=== PATIENT | female | born 1935 | race Caucasian/White ===

== ENCOUNTER 2018-11-19 08:00 | Inpatient (IN) ==
--- NOTE | 2018-11-11 13:41 | PAT Medication Instructions ---
Medication Instructions Date of Service November 11, 2018 Home Medications atorvastatin 20 mg PO QAM gabapentin 100 mg PO HS loratadine [Claritin] 10 mg PO DAILY multivitamin with minerals [Hair,Skin and Nails] 2 tab PO QAM triamterene-hydrochlorothiazid 1 tab PO QAM venlafaxine 300 mg PO QAM DO NOT take the morning of surgery loratadine [Claritin] 10 mg PO DAILY multivitamin with minerals [Hair,Skin and Nails] 2 tab PO QAM triamterene-hydrochlorothiazid 1 tab PO QAM Take morning of surgery With a small sip of water, OTHERWISE NOTHING TO EAT OR DRINK AFTER MIDNIGHT: atorvastatin 20 mg PO QAM venlafaxine 300 mg PO QAM Take evening before surgery gabapentin 100 mg PO HS Other Notes If you have any questions please call us at [phone] or [phone] or [phone] or [phone]
--- NOTE | 2018-11-11 14:18 | Anesthesiology Consultation ---
Date of Service November 11, 2018 Assessment & Plan Chart Review Chart Review: Acceptable Risk for Surgery, Pending: Refer to Additional Notes / Consult section (pending PAT testing results) and Patient seen in Pre Admission Testing Consults Requested none History Surgery Operation Date: 11/19/18 10:25 Proposed Procedures p L4-L5 Decompression and Fusion, Spinal Cord Monitoring - Cale Cassidy DO Height/Weight Height: 5 ft 8 in Weight: 82.3 kg Allergies Allergy/AdvReac Type Severity Reaction Status Date / Time ceftriaxone Allergy Intermediate hives Verified 11/11/18 13:28 Iodinated Contrast Media Allergy Intermediate pruritus Verified 11/11/18 13:28 (feet) Penicillins Allergy Intermediate hives Verified 11/11/18 13:28 cisapride AdvReac Intermediate GI symptoms Verified 11/11/18 13:28 solifenacin AdvReac Intermediate blurred Verified 11/11/18 13:28 vision Medications Home Medications Medication Instructions Recorded Confirmed Last Taken atorvastatin 20 mg PO QAM 11/10/18 11/10/18 Unknown gabapentin 100 mg PO HS 11/10/18 11/10/18 Unknown loratadine [Claritin] 10 mg PO DAILY 11/10/18 11/10/18 Unknown multivitamin with minerals 2 tab PO QAM 11/10/18 11/10/18 Unknown [Hair,Skin and Nails] triamterene-hydrochlorothiazid 1 tab PO QAM 11/10/18 11/10/18 Unknown venlafaxine 300 mg PO QAM 11/10/18 11/10/18 Unknown Past Medical History Medical History Hypertension Hyperlipidemia CKD (chronic kidney disease) stage 3, GFR 30-59 ml/min GERD (gastroesophageal reflux disease) Depression Chronic back pain Degenerative disc disease Osteoarthritis Exercise / Class Metabolic Activity III < 4 Walking/Shop/Light housework Past Family History Family History Father Family hx of colon cancer Brother Family history of diabetes mellitus Sister Family history of diabetes mellitus Past Surgical History Surgical History History of tonsillectomy and adenoidectomy History of appendectomy History of carpal tunnel surgery "Right" H/O bladder repair surgery "vaginal sling procedure for stress incontinence 11/2006 " History of arthroplasty of right knee H/O vaginal hysterectomy History of arthroplasty of left knee Past Anesthesia History No Hx of Anesthesia Complications and No Family Hx of Anesthesia Complications History of PONV No Hx of PONV and No Hx of Motion Sickness Social History Smoking Status: Current every day smoker tobacco type: cigarettes Smoking cigarettes per day: 11 Do You Dip or Chew Tobacco: No Hx Alcohol Use: No Hx Substance Use: No substance use type: does not use Review of Systems Constitutional: no fever Respiratory: no cough and no dyspnea Cardiovascular: no chest pain and no dyspnea on exertion Musculoskeletal: + back pain Physical Exam Vital Signs Last Vital Signs Temp 36.5 C 11/11/18 13:56 Pulse 80 11/11/18 13:56 Resp 18 11/11/18 13:56 BP 111/66 11/11/18 13:56 Pulse Ox 98 11/11/18 13:56 ENMT Mouth: + edentulous Thyromental Distance: > or= 3.5 Finger Breadths Mallampati Class: II Neck normal visual inspection and trachea midline; neck extension not limited Respiratory normal respiratory effort Auscultation: lungs clear to auscultation bilaterally Cardiovascular Rate/Rhythm: regular rate and regular rhythm Neurologic moves all extremities Psychiatric Orientation: alert and oriented x 3
[2018-11-11 15:28] LABS: Basophils # (auto) 0.02 K/uL (0-0.2); Basophils % (auto) 0.3 %; Eosinophils # (auto) 0.17 K/uL (0-0.5); Eosinophils % (auto) 2.9 %; Hematocrit (blood only) 40.1 % (37-47); Hemoglobin 13.2 g/dL (12.0-16.0); Immature Granulocytes # (auto) 0.01 K/uL (0.00-0.02); Immature Granulocytes % (auto) 0.2 %; Lymphocytes # (auto) 1.35 K/uL (1.2-3.4); Lymphocytes % (auto) 23.1 %; Mean Corpuscular Hemoglobin 33.8 pg (25-34); Mean Corpuscular Hgb Conc 32.9 g/dL (32-36); Mean Corpuscular Volume 102.6 fL (80-100); Mean Platelet Volume 10.8 fL (7.4-10.4); Monocytes # (auto) 0.59 K/uL (0.11-0.59); Monocytes % (auto) 10.1 %; Neutrophils % (auto) 63.4 %; Platelet Count 194 K/uL (130-400); RDW Coefficient of Variation 15.2 % (11.5-14.5); RDW Standard Deviation 56.3 fL (36.4-46.3); Red Blood Count 3.91 M/uL (4.2-5.4); White Blood Count 5.84 K/uL (4.8-10.8)
--- NOTE | 2018-11-11 15:29 | XRay Report ---
XR chest Pre-admission PA/Lat HISTORY: Preop. COMPARISON: Chest 04/29/2018. FINDINGS: S-shaped scoliosis of the thoracolumbar spine. Mild diffuse interstitial thickening, unchan ged. This is likely chronic. No new focal lung consolidations to suggest pneumonia. No evidence for p ulmonary edema. The heart is normal in size. IMPRESSION: No significant change compared to the prior study. No acute process. Stable mild chronic interstitial thickening. Electronically signed by: Dao Santos M.D. 11/11/2018 3:28 PM
[2018-11-11 15:36] LABS: Appearance Urine Clear (Clear); Bacteria Urine Automated Negative (Negative); Bilirubin Urine Negative (Negative); Blood Urine Negative (Negative); Color Urine Yellow; Epithelial Cell Urine Auto >30 /lpf (0-5); Glucose Urine UA Negative (Negative); Ketones Urine Negative (Negative); Leukocyte Esterase Urine 3+ (Negative); Nitrite Urine Negative (Negative); Protein Urine Negative (Negative); RBC Urine Automated 0-4 /hpf (0-4); Specific Gravity Urine 1.016 (1.000-1.030); Urobilinogen Urine Negative (Negative); pH Urine 6.5 (4.5-7.5)
[2018-11-11 15:40] LABS: Partial Thromboplastin Time 26.4 Seconds (21.0-31.0)
[~2018-11-19 08:00] MED LIST: ACETAMINOPHEN 500 MG TAB PO SCH; CLINDAMYCIN 600 MG/54 ML BAG IV SCH; CeleBREX 200 MG CAP PO SCH; GABAPENTIN 300 MG CAP PO SCH; LR 15ML/HR IV SCH
[2018-11-19] MEDS ORDERED: HYDROmorphone INJ 2 MG/ML SYR/VIAL ONE ×2 (08:21→11:35)
[2018-11-19] MEDS ORDERED: fentaNYL citrate 100 MCG/2 ML VIAL ONE ×3 (08:21→11:06)
[2018-11-19] MEDS ORDERED: DEXAMETHASONE SOD INJ 4 MG/ML VIAL ONE (08:27)
[2018-11-19] MEDS ORDERED: ROCURONIUM BROMIDE 10 MG/ML 5 ML VIAL ONE (08:27)
[2018-11-19] MEDS ORDERED: LIDOCAINE HCL 2% 2 ML VIAL/AMP(20MG/ML) INFIL ONE (08:27)
[2018-11-19] MEDS ORDERED: ONDANSETRON INJ 2 MG/ML 2 ML VIAL ONE (08:27)
[2018-11-19] MEDS ORDERED: NEOSTIGMINE METHYLSULFATE 1 MG/ML 10ML VIAL ONE (08:27)
[2018-11-19] MEDS ORDERED: GLYCOPYRROLATE 0.2 MG/ML VIAL ONE (08:27)
[2018-11-19] MEDS ORDERED: PROPOFOL IV EMULSION 10 MG/ML 20 ML VIAL IV ONE (08:27)
[2018-11-19] MEDS ORDERED: fentaNYL citrate 100 MCG/2 ML VIAL IV PRN (08:33)
[2018-11-19] MEDS ORDERED: ePHEDrine sulfate 50 MG/ML AMP IV PRN (08:33)
[2018-11-19] MEDS ORDERED: PHENYLEPHRINE 100MCG/ML 5ML SYR IV PRN (08:33)
[2018-11-19] MEDS ORDERED: ONDANSETRON INJ 2 MG/ML 2 ML VIAL IV PRN ×2 (08:33→12:51)
[2018-11-19] MEDS ORDERED: HYDROmorphone INJ 1 MG/ML SYRINGE IV PRN (08:33)
[2018-11-19] MEDS ORDERED: LABETALOL HCL IV 5 MG/ML 20ML IV PRN (08:33)
[2018-11-19] MEDS ORDERED: ATROPINE SULFATE 0.1 MG/ML 10ML SYR IV PRN (08:33)
--- NOTE | 2018-11-19 09:15 | History & Physical Bridge Note ---
Date of Service November 19, 2018 History & Physical Bridge Note I have examined the patient, reviewed the History & Physical and in the interval since the performance of the History & Physical I have noted the following changes of clinical significance: no changes noted
--- NOTE | 2018-11-19 09:18 | History & Physical Report ---
Date of Service November 19, 2018 Assessment & Plan (1) Neurogenic claudication due to lumbar spinal stenosis: Decompression and fusion L4-5 Present on Admission?: Yes History of Present Illness Chief Complaint: Back and leg pain Primary Care Provider: Devi Luna DO This is an 83-year-old female who presents with chronic persistent back and leg pain. After failing extensive course of nonoperative care is here for surgical intervention. Allergies Allergy/AdvReac Type Severity Reaction Status Date / Time ceftriaxone Allergy Intermediate hives Verified 11/19/18 08:31 Iodinated Contrast Media Allergy Intermediate pruritus Verified 11/19/18 08:31 (feet) Penicillins Allergy Intermediate hives Verified 11/19/18 08:31 cisapride AdvReac Intermediate GI symptoms Verified 11/19/18 08:31 solifenacin AdvReac Intermediate blurred Verified 11/19/18 08:31 vision Home Medications Home Medications Medication Instructions Recorded Confirmed Type atorvastatin 20 mg PO QAM 11/10/18 11/19/18 History gabapentin 100 mg PO HS 11/10/18 11/19/18 History loratadine [Claritin] 10 mg PO DAILY 11/10/18 11/19/18 History multivitamin with minerals 2 tab PO QAM 11/10/18 11/19/18 History [Hair,Skin and Nails] triamterene-hydrochlorothiazid 1 tab PO QAM 11/10/18 11/19/18 History venlafaxine 300 mg PO QAM 11/10/18 11/19/18 History Past Med/Surg History Medical History Hypertension Hyperlipidemia CKD (chronic kidney disease) stage 3, GFR 30-59 ml/min GERD (gastroesophageal reflux disease) Depression Chronic back pain Degenerative disc disease Osteoarthritis Surgical History History of tonsillectomy and adenoidectomy History of appendectomy History of carpal tunnel surgery "Right" H/O bladder repair surgery "vaginal sling procedure for stress incontinence 11/2006 " History of arthroplasty of right knee H/O vaginal hysterectomy History of arthroplasty of left knee Family History Father Family hx of colon cancer Brother Family history of diabetes mellitus Sister Family history of diabetes mellitus Social History Preferred Language: [place] Islander Communication Ability: Effective Networking Administrator Required: No Beliefs That Will Affect Care: None Current Living Situation: Spouse Other Information That Helps Us Care for You: No Feels Safe at Home: Yes Safety Concerns: Feels Safe At This Time Smoking Status: Current every day smoker Tobacco Type: cigarettes ; Cigarettes Per Day: 11 ; Do You Dip or Chew Tobacco: No ; Second Hand Exposure: No ; Tobacco Cessation Education Requested by Patient: No Hx Alcohol Use: No Hx Substance Use: No Physical Exam Physical Exam: Patient is alert and oriented neurologically intact. Results & Data Vital Signs (Past 12 Hours) Vital Signs Temp Pulse Resp BP Pulse Ox 11/19/18 08:28 36.3 C L 78 20 157/87 H 96
[2018-11-19] MEDS ORDERED: BACITRACIN INJ 50,000 UNIT VIAL ONE (09:35)
[2018-11-19] MEDS ORDERED: BUPIVACAINE/EPINEPHRINE 0.5% MPF 1:200,000 30 ML VIAL ONE (09:35)
[2018-11-19] MEDS ORDERED: FLOSEAL HEMOSTATIC MATRIX 10ML TOP ONE (10:09)
--- NOTE | 2018-11-19 11:22 | Operative Report ---
Post Operative Report Pre & Post Diagnosis Operation Date: 11/19/18 10:05 Pre-Op Diagnosis: L4-L5 LUMBAR SPINAL STENOSIS WITH NEUROGENIC CLAUDICATION Post-Op Diagnosis: L4-L5 LUMBAR SPINAL STENOSIS WITH NEUROGENIC CLAUDICATION Procedure Operation Date: 11/19/18 10:05 Actual Procedures #1 lumbar decompression with bilateral medial facetectomies and foraminotomies L3-4 L4-5. #2 posterior spinal fusion L4-5 per #3 placement posterior instrumentation L4-5 per #4 interbody fusion L4-5. #5 placement of peek cage 9 x 22 mm at L4-5 per #6 placement of local autograft in the posterior lateral gutters. #7 placement infuse collagen sponge combined master graft in the posterior lateral gutters and ostial amp in the interbody space. Surgeon Cale Cassidy DO Market Development Trainer Margie King Estimated Blood Loss 175 Findings Consistent with Post-Op Diagnosis Specimens None Indications This is a 83-year-old female who presents with above-mentioned diagnosis after failing extensive course of nonoperative care she like to undergo the above- mentioned procedure. Description of Procedure Patient was met with identified and informed consent obtained. Patient was then taken to the operative suite underwent intubation placed in the prone position the Sly table on top of the Foreign frame. All bony prominences well-padded eyes inspected to ensure no external pressure placed upon the peer at this point the lumbar spine was prepped and draped in normal sterile fashion. Sharp dissection with the assistance of Bovie cautery was performed down to and exposing the lamina transverse processes of L4-L5 bilaterally. From a caudal to cephalad fashion complete laminectomy of L4 partial laminectomy L3 was performed including bilateral medial facetectomies and foraminotomies addressing severe stenosis. Pedicle screws were then placed in L4 and L5 bilaterally with the assistance of fluoroscopy the purposes ketan placed. By way of a transforaminal approach on the right complete discectomy was performed endplates curetted to subcortical being bone and a 9 x 22 mm peek cage filled with ostium bone graft tapped in position. The rods were then locked into final position bilaterally. The transverse processes of L4 and L5 bur to subcortical bleeding bone. Infuse collagen sponge master graft and local autograft placed in the posterior lateral gutters. 15 round SARIAH drain inserted. The incision was then closed with 1 Vicryl in the fascia 2-0 Vicryl subcutaneously and 4-0 Monocryl for final skin closure. Steri-Strip sterile dressings placed. Patient will continue to PACU stable condition. Please note Margie King present at the entire procedure involved the patient positioning complex portions of the surgery and final skin closure. Lastly spinal cord monitoring was utilized throughout the procedure no changes noted. I attest to the content of the Intraoperative Record and any orders documented therein. Any exceptions are noted below.
--- NOTE | 2018-11-19 11:31 | Fluoroscopy Report ---
INTRAOPERATIVE RADIOGRAPHS CLINICAL HISTORY: L4-L5 spinal fusion. Fluoroscopy time: 18 seconds. FINDINGS: 2 spot fluoroscopic views of the lumbar spine are presented. There has been discectomy at L 4-L5 with laminectomy and posterior fusion at this level. Interpedicular screws are in place. The ort hopedic hardware appears intact. IMPRESSION: Intraoperative images from L4-L5 spinal fusion as above. Electronically signed by: Gentry Young M.D. 11/19/2018 11:29 AM
[2018-11-19] MEDS ORDERED: LARYING-O-JET KIT (LTA) ONE (11:37)
--- NOTE | 2018-11-19 12:28 | Anesthesiology Progress Note ---
Date of Service November 19, 2018 Anesthesia Post Procedure Vital Signs Vital Signs: Temp Pulse Pulse Resp BP Pulse Ox 11/19/18 12:20 88 20 136/64 96 11/19/18 12:10 86 14 139/66 97 11/19/18 12:00 36.6 C 87 16 139/67 98 11/19/18 11:50 84 20 146/68 H 99 11/19/18 11:40 84 18 147/69 H 100 11/19/18 11:32 36.4 C L 86 14 147/65 H 97 11/19/18 08:28 36.3 C L 78 20 157/87 H 96 Pain Intensity Back: Pain Intensity: 3 Transfer of Care Handoff Completed per policy Notes Mental Status: alert / awake / arousable Patient Amnestic to Procedure: Yes Nausea / Vomiting: adequately controlled Pain: adequately controlled Airway Patency, RR, SpO2: stable & adequate BP & HR: stable & adequate Hydration State: stable & adequate Anesthetic Complications: no major complications apparent and Pt Satisfied with anesthetic care
[2018-11-19] MEDS ORDERED: DO NOT ADMINISTER PNEUMOCOCCAL VACCINE PRN (12:51)
[2018-11-19] MEDS ORDERED: METOCLOPRAMIDE HCL INJ 5 MG/ML 2 ML VIAL IV PRN (12:51)
[2018-11-19] MEDS ORDERED: FAMOTIDINE 20 MG TAB PO PRN (12:51)
[2018-11-19] MEDS ORDERED: MAGNESIUM HYDROXIDE SUSP 30 ML UDC PO PRN (12:51)
[2018-11-19] MEDS ORDERED: LORazepam 0.5 MG TAB PO PRN (12:51)
[2018-11-19] MEDS ORDERED: NALOXONE HCL 0.4 MG/1 ML VIAL/CARP IV PRN (12:51)
[2018-11-19] MEDS ORDERED: ALUMINUM/MAGNESIUM SUSP 30 ML UDC PO PRN (12:51)
[2018-11-19] MEDS ORDERED: ACETAMINOPHEN 500 MG TAB PO PRN (12:51)
[2018-11-19] MEDS ORDERED: LORazepam 0.5 MG/1 ML VIAL IV PRN (12:51)
[2018-11-19] MEDS ORDERED: PROMETHAZINE HCL 12.5 MG in SODIUM CHLORIDE 0.9% 50 ML IV PRN (12:51)
[2018-11-19] MEDS ORDERED: ACETAMINOPHEN 1,000 MG/100 ML VIAL IV PRN (12:51)
[2018-11-19] MEDS ORDERED: ONDANSETRON 4 MG TAB PO PRN (12:51)
[2018-11-19] MEDS ORDERED: SOD PHOSPHATE/SOD BIPHOSPHATE ENEMA 132 ML BTL PR PRN (12:51)
[2018-11-19] MEDS ORDERED: DO NOT ADMINISTER FLU VACCINE PRN (12:51)
[2018-11-19] MEDS ORDERED: bisacodyL 10 MG SUPP PR PRN (12:51)
[2018-11-19] MEDS: LACTATED RINGER'S 1,000 ML IV SCH ×2 (14:12→14:55)
--- NOTE | 2018-11-19 14:53 | Hospitalist Consultation ---
Date of Consultation November 19, 2018 Assessment & Plan (1) Hx of lumbosacral spine surgery: This is an 83yo F with a PMH of HTN, CKD III, HLD, mood disorder and PVD who is POD #0 s/p decompression with bilateral medial facetectomies and foraminotomies L3-4 L4-[address] Cassidy. -POD #0 s/p decompression with bilateral medial facetectomies and foraminotomies L3-4 L4-[address] Cassidy -Pt is doing well post-operatively -Per ortho for pain control, wound care, anticoagulation and activities -Monitor H&H (pre-op hgb 13.2 on 11/11/18. EBL: 175 ml, SARIAH output 70ml) -Continue incentive spirometry, PT/OT when appropriate (2) Hypertension: Normotensive -Continue triamterene-hctz tomorrow (3) Hyperlipidemia: Continue atorvastatin (4) CKD (chronic kidney disease) stage 3, GFR 30-59 ml/min: Baseline Cr ~ 1.1, GFR mid-40s -Monitor during daily BMP (5) Depression: Continue venlafaxine (6) PVD (peripheral vascular disease): Continue statin. Aspirin intolerant -Advised smoking cessation (7) Tobacco use disorder: 45 pack years, currently smoking almost 1 ppd -Offered nicotine patch, not interested at this time (8) Urge incontinence of urine: H/o sacral nerve neurostimulator placement in 2013, vaginal sling procedure for incontinence in 2006 (9) Slow transit constipation: Recommend aggressive bowel regimen while receiving narcotics PCP: Cheryl Dispo: Per primary service Patient seen in collaboration with Dr. Dickey. Please see addendum. Supervising Physician Co-Signing Physician Notes I, Dr. Navin Dickey, have seen and examined the patient with physician drafter assistant and agree with the assessment and plan as above and would like to comment that This is a patient being seen as hospitalist medicine consult and is under the general service Dr. Cassidy With L4-L5 LUMBAR SPINAL STENOSIS WITH NEUROGENIC CLAUDICATION and s/p lumbar spine decompression and fusion on 11/19/18 (s/p #1 lumbar decompression with bilateral medial facetectomies and foraminotomies L3-4 L4-5. #2 posterior spinal fusion L4-5 per #3 placement posterior instrumentation L4-5 per #4 interbody fusion L4-5. #5 placement of peek cage 9 x 22 mm at L4-5 per #6 placement of local autograft in the posterior lateral gutters. #7 placement infuse collagen sponge combined master graft in the posterior lateral gutters and ostial amp in the interbody space.) On exam patient: General: laying in bed on nasal cannula, she is sleeping and easily awaken. Denies acute pain Neck/ENT: visual inspection normal besides nasal cannula Heart: regular rate Lungs: clear to auscultation bilaterally Abdomen: soft, nontender, positive bowel sounds Back: SARIAH drain Extremities: able to wiggle the toes of bilateral lower extremities Postop care for s/p lumbar spine decompression and fusion due With L4-L5 LUMBAR SPINAL STENOSIS WITH NEUROGENIC CLAUDICATION -agree with current pain control, bowel regimen, orders for wound care, expect PT/OT tomorrow to evaluate Hypertension: -Continue triamterene-hctz tomorrow Hyperlipidemia: -on atorvastatin CKD (chronic kidney disease) stage 3, GFR 30-59 ml/min: -monitor renal function Depression -on venlafaxine urge incontinence of urine: - history of sacral nerve neurostimulator placement in 2013, vaginal sling procedure for incontinence in 2006 -monitor urine output SCDs as DVT prevention device My colleague Dr. Davison will be following the patient starting on 11/20/18 History of Present Illness Reason for Consultation: post op medical mgmt Attending Physician: Cale Cassidy, DO History of Present Illness This is an 83yo F with a PMH of HTN, CKD III, HLD, mood disorder and PVD who is POD #0 s/p decompression with bilateral medial facetectomies and foraminotomies L3-4 L4-[address] Cassidy. Patient is feeling well post-operatively with mild surgical site pain. Has been lethargic since returning to the floor and was falling asleep intermittently during interview. Denies any confusion, lightheadedness or visual changes. No chest pain, palpitations or SOB. Tolerated clear liquids for lunch without nausea, vomiting or abdominal pain. Has not urinated since surgery. Last bowel movement yesterday. Allergies Allergy/AdvReac Type Severity Reaction Status Date / Time ceftriaxone Allergy Intermediate hives Verified 11/19/18 08:31 Iodinated Contrast Media Allergy Intermediate pruritus Verified 11/19/18 08:31 (feet) Penicillins Allergy Intermediate hives Verified 11/19/18 08:31 cisapride AdvReac Intermediate GI symptoms Verified 11/19/18 08:31 solifenacin AdvReac Intermediate blurred Verified 11/19/18 08:31 vision Home Medications Home Medications Medication Instructions Recorded Confirmed Type atorvastatin 20 mg PO QAM 11/10/18 11/19/18 History gabapentin 100 mg PO HS 11/10/18 11/19/18 History loratadine [Claritin] 10 mg PO DAILY 11/10/18 11/19/18 History multivitamin with minerals 2 tab PO QAM 11/10/18 11/19/18 History [Hair,Skin and Nails] triamterene-hydrochlorothiazid 1 tab PO QAM 11/10/18 11/19/18 History venlafaxine 300 mg PO QAM 11/10/18 11/19/18 History albuterol sulfate 2 puff INHALATION Q6H PRN 11/19/18 11/19/18 History cholecalciferol (vitamin D3) 1,000 unit PO DAILY 11/19/18 11/19/18 History [Vitamin D3] cyanocobalamin (vitamin B-12) 1,000 mcg PO DAILY 11/19/18 11/19/18 History [Vitamin B-12] Patient History Medical History Osteoarthritis (Chronic) Hypertension (Chronic) Hyperlipidemia (Chronic) CKD (chronic kidney disease) stage 3, GFR 30-59 ml/min (Chronic) GERD (gastroesophageal reflux disease) (Chronic) Depression (Chronic) Chronic back pain (Chronic) Degenerative disc disease (Chronic) Surgical History H/O bladder repair surgery (Chronic) "vaginal sling procedure for stress incontinence 11/2006 " H/O vaginal hysterectomy (Chronic) History of arthroplasty of left knee (Chronic) History of appendectomy (Chronic) History of arthroplasty of right knee (Chronic) History of carpal tunnel surgery (Chronic) "Right" History of tonsillectomy and adenoidectomy (Chronic) Family History Father Family hx of colon cancer Brother Family history of diabetes mellitus Sister Family history of diabetes mellitus Social History Preferred Language: Georgian Communication Ability: Effective Microsoft Architect Required: No Beliefs That Will Affect Care: None Current Living Situation: Spouse Other Information That Helps Us Care for You: No Feels Safe at Home: Yes Safety Concerns: Feels Safe At This Time Smoking Status: Current every day smoker Tobacco Type: cigarettes ; Years Smoked: 45 ; Cigarettes Per Day: 18 ; Do You Dip or Chew Tobacco: No ; Second Hand Exposure: No ; Tobacco Cessation Education Requested by Patient: No Hx Alcohol Use: No Hx Substance Use: No Review of Systems Review of Systems: At least ten systems reviewed and negative except as noted in the HPI. Physical Exam Physical Exam: General Appearance: WD/WN, vitals as above, NAD, resting comfortably, sleeping intermittently during exam but easily arousable to verbal stimuli Head: normocephalic, atraumatic Eyes: normal inspection, PERRL, conjunctivae normal, anicteric sclerae ENT: hard of hearing, external ear and nose normal, oropharynx normal Neck: trachea midline, no thyromegaly normal visual inspection Respiratory: normal respiratory effort, lungs clear to auscultation, no wheeze, rales, rhonchi. Normal insp/exp effort, no accessory muscle use Cardiovascular: regular rate, rhythm, no murmur appreciated, normal peripheral pulses. Vessels: no JVD or carotid bruit Chest: normal inspection of chest Abdomen/GI: normal bowel sounds, soft, nontender, no hepatosplenomegaly Extremities/Musculoskelatal: Lumbar surgical dressing clean, dry, intact. + SARIAH drain visualized. No cyanosis or clubbing, extremities motor strength 5/5 Neurologic: PERRL, EOMI, accommodation nl, no face palsy, no dysarthria CN's II-XI intact bilaterally and moves all extremities Psychiatric: A+Ox3, euthymic affect Skin: no rashes, normal color, warm/dry Results & Data Vital Signs (Past 12 Hours) Vital Signs Temp Pulse Pulse Resp BP Pulse Ox 11/19/18 14:30 89 18 115/69 96 11/19/18 13:46 36.5 C 88 14 117/69 98 11/19/18 13:20 36.6 C 81 14 100/63 99 11/19/18 12:45 36.5 C 86 13 123/74 96 11/19/18 12:35 90 16 130/61 94 11/19/18 12:30 36.8 C 88 16 134/63 94 11/19/18 12:20 88 20 136/64 96 11/19/18 12:10 86 14 139/66 97 11/19/18 12:00 36.6 C 87 16 139/67 98 11/19/18 11:50 84 20 146/68 H 99 11/19/18 11:40 84 18 147/69 H 100 11/19/18 11:32 36.4 C L 86 14 147/65 H 97 11/19/18 08:28 36.3 C L 78 20 157/87 H 96 Laboratory Results Pertinent pre-op labwork (11/11/18): Hgb: 13.2
[2018-11-19] MEDS ORDERED: ALBUTEROL HFA 8 GM INHALER INH PRN (15:28)
[2018-11-19] MEDS: CLINDAMYCIN 600 MG in DEXTROSE 5% 50 ML IV SCH (18:26)
[2018-11-19] MEDS: GABAPENTIN 100 MG CAP PO SCH (20:52)
[2018-11-19] MEDS: DOCUSATE SODIUM/SENNA 50/8.6MG TAB PO SCH (20:52)
[2018-11-20] MEDS: CLINDAMYCIN 600 MG in DEXTROSE 5% 50 ML IV SCH (01:02)
[2018-11-20] MEDS: LACTATED RINGER'S 1,000 ML IV SCH (01:02)
[2018-11-20] MEDS: POLYETHYLENE (MIRALAX) 17 GM PACK PO SCH ×4 (05:15→23:48)
[2018-11-20] MEDS: OXYCODONE HCL IR 5 MG TAB (IMMEDIATE RELEASE) PO PRN ×2 (05:15→10:27)
[2018-11-20 06:22] LABS: Basophils # (auto) 0.01 K/uL (0-0.2); Basophils % (auto) 0.1 %; Eosinophils # (auto) 0.02 K/uL (0-0.5); Eosinophils % (auto) 0.2 %; Hematocrit (blood only) 33.7 % (37-47); Hemoglobin 10.7 g/dL (12.0-16.0); Immature Granulocytes # (auto) 0.02 K/uL (0.00-0.02); Immature Granulocytes % (auto) 0.2 %; Lymphocytes # (auto) 0.86 K/uL (1.2-3.4); Lymphocytes % (auto) 9.4 %; Mean Corpuscular Hemoglobin 32.8 pg (25-34); Mean Corpuscular Hgb Conc 31.8 g/dL (32-36); Mean Corpuscular Volume 103.4 fL (80-100); Mean Platelet Volume 10.4 fL (7.4-10.4); Monocytes # (auto) 0.77 K/uL (0.11-0.59); Monocytes % (auto) 8.4 %; Neutrophils # (auto) 7.48 K/uL (1.4-6.5); Neutrophils % (auto) 81.7 %; Platelet Count 149 K/uL (130-400); RDW Standard Deviation 56.9 fL (36.4-46.3); Red Blood Count 3.26 M/uL (4.2-5.4); White Blood Count 9.16 K/uL (4.8-10.8)
[2018-11-20 06:52] LABS: BUN Creatinine Ratio 23.6 (10-20); Calcium 9.4 mg/dl (8.5-10.1); Creatinine Clr Calc Pharmacy 44.1 ml/min; Est GFR (African American) 54.1; Est GFR (Non-African American) 46.7; Potassium 3.7 mmol/L (3.5-5.1)
[2018-11-20 06:55] LABS: Albumin Globulin Ratio 1.1 (0.9-2); Bilirubin,Total 0.4 mg/dl (0.2-1); Globulin 2.7 gm/dl (2.5-4.0); Total Protein 5.7 gm/dl (6.4-8.2)
[2018-11-20] MEDS: HYDROmorphone INJ 0.5 MG/0.5 ML SYR IV PRN ×2 (07:29→14:27)
[2018-11-20] MEDS: CHOLECALCIFEROL 1,000 UNITS TAB PO SCH (07:30)
[2018-11-20] MEDS: LORATADINE 10 MG TAB PO SCH (07:30)
[2018-11-20] MEDS: ATORVASTATIN 20 MG TAB PO SCH (07:30)
[2018-11-20] MEDS: TRIAMTERENE/HCTZ 37.5/25MG TAB PO SCH (07:30)
[2018-11-20] MEDS: MULTIVITAMIN TAB PO SCH (07:31)
[2018-11-20] MEDS: VENLAFAXINE HCL XR 150 MG CAPXR PO SCH (07:31)
[2018-11-20] MEDS: CYANOCOBALAMIN 500 MCG TABLET (VITAMIN B-12) PO SCH (07:31)
--- NOTE | 2018-11-20 07:46 | Anesthesiology Progress Note ---
Date of Service November 20, 2018 Anesthesia Post Procedure Vital Signs Vital Signs: Temp Pulse Pulse Pulse Resp BP Pulse Ox 11/20/18 07:00 36.6 C 82 16 113/65 93 11/20/18 03:08 36.5 C 78 16 117/70 94 11/19/18 23:59 36.5 C 77 16 112/72 97 11/19/18 19:17 36.4 C L 86 16 110/60 92 11/19/18 15:47 36.5 C 85 14 111/69 97 11/19/18 14:30 89 18 115/69 96 11/19/18 13:46 36.5 C 88 14 117/69 98 11/19/18 13:20 36.6 C 81 14 100/63 99 11/19/18 12:45 36.5 C 86 13 123/74 96 11/19/18 12:35 90 16 130/61 94 11/19/18 12:30 36.8 C 88 16 134/63 94 11/19/18 12:20 88 20 136/64 96 11/19/18 12:10 86 14 139/66 97 11/19/18 12:00 36.6 C 87 16 139/67 98 11/19/18 11:50 84 20 146/68 H 99 11/19/18 11:40 84 18 147/69 H 100 11/19/18 11:32 36.4 C L 86 14 147/65 H 97 11/19/18 08:28 36.3 C L 78 20 157/87 H 96 Pain Intensity Back: Pain Intensity: 10 Notes Mental Status: alert / awake / arousable and participated in evaluation Patient Amnestic to Procedure: Yes Nausea / Vomiting: adequately controlled Pain: adequately controlled Airway Patency, RR, SpO2: stable & adequate BP & HR: stable & adequate Hydration State: stable & adequate Anesthetic Complications: no major complications apparent and Pt Satisfied with anesthetic care
--- NOTE | 2018-11-20 16:02 | Orthopedic Progress Note ---
Date of Service November 20, 2018 Assessment & Plan (1) Neurogenic claudication due to lumbar spinal stenosis: This time we will continue with physical therapy monitor her SARIAH output hopefully discharge home later half this weekend. Present on Admission?: Yes Subjective Patient's back pain is controlled leg symptoms improved. Physical Exam Physical Exam: Patient is good strength testing appears comfortable. Results & Data Vital Signs (Past 12 Hours) Vital Signs Temp Pulse Resp BP Pulse Ox 11/20/18 15:40 37.1 C 90 18 133/78 93 11/20/18 13:16 36.8 C 92 H 16 120/68 92 11/20/18 07:00 36.6 C 82 16 113/65 93
--- NOTE | 2018-11-20 17:43 | Hospitalist Progress Note ---
Date of Service November 20, 2018 Assessment & Plan (1) Post-operative state: s/p lumbar surgery POD#1, some expected pain, which is managed with medications. Post-operative course including activity and diet managed by Dr. Cassidy. (2) Acute blood loss anemia: Expected in post-operative state, no transfusion indicated at this time. (3) Hypertension: At goal, maxzide restarted today (4) CKD (chronic kidney disease) stage 3, GFR 30-59 ml/min: at baseline. (5) Depression: Stable, cont venlafaxine (6) PVD (peripheral vascular disease): Intolerant of aspirin, cont statin. Smoking cessation strongly advised. (7) Tobacco use disorder: contemplative phase (8) Urge incontinence of urine: H/o sacral nerve neurostimulator placement in 2013, vaginal sling procedure for incontinence in 2006 (9) DVT prophylaxis: SCDs/ambulation Full Code Dispo-pending clearance per Dr. Cassidy. Thank you for the consult. We will continue to follow her throughout her hospitalization. Lila Davison DO [facility] Hospitalist Subjective doing well some post-op pain as expected asking about discharge Review of Systems Review of Systems: All systems reviewed & are unremarkable except as noted in HPI & below Physical Exam Physical Exam: CONSTITUTIONAL: WNWD, vitals as above, generally well- appearing EYES: normal conjunctivae, no scleral icterus ENT: MMM RESPIRATORY: clear to auscultation bilaterally, no crackles, rales or wheezes, normal respiratory effort CARDIOVASCULAR: regular rate and rhythm, S1 and 2 heard without murmurs, g allops or rubs, no JVD, no peripheral edema GASTROINTESTINAL: soft, nontender, nondistended MUSCULOSKELETAL: strength 5/5 throughout, head is normocephalic and atraumatic SKIN: warm and dry, lower back incision covered with dressing that is c/d/i, +SARIAH drain NEUROLOGIC: CN 2-12 grossly intact, no gross focal deficits. PSYCHIATRIC: alert cooperative and oriented Results & Data Vital Signs (Past 12 Hours) Vital Signs Temp Pulse Resp BP Pulse Ox 11/20/18 15:40 37.1 C 90 18 133/78 93 11/20/18 13:16 36.8 C 92 H 16 120/68 92 11/20/18 07:00 36.6 C 82 16 113/65 93 Laboratory Results Short CBC 11/20/18 Range/Units 06:02 WBC 9.16 (4.8-10.8) K/uL Hgb 10.7 L (12.0-16.0) g/dL Hct 33.7 L (37-47) % Plt Count 149 (130-400) K/uL BMP 11/20/18 06:02 Sodium 141 Potassium 3.7 Chloride 106 Carbon Dioxide 30 BUN 26 H Creatinine 1.10 Glucose 147 H Calcium 9.4 Liver Function 11/20/18 Range/Units 06:02 Total Bilirubin 0.4 (0.2-1) mg/dl AST 10 L (15-37) U/L ALT 13 (12-78) U/L Alkaline Phosphatase 63 (45-117) U/L Albumin 3.0 L (3.4-5.0) gm/dl Medications Administered Current Inpatient Medications Acetaminophen (Tylenol) 1,000 mg PO Q8H PRN PRN Reason: MILD Pain Rating 1,2,3 Stop: 12/19/18 12:50 Al Hydrox/Mg Hydrox/Simethicone (Maalox) 30 ml PO Q6H PRN PRN Reason: Dyspepsia Stop: 12/19/18 12:50 Albuterol (Ventolin Hfa) 2 puffs INH Q6H PRN PRN Reason: Shortness Of Breath Stop: 12/19/18 15:27 Atorvastatin Calcium ([facility]) [facility] [place] Stop: 12/20/18 08:59 Last Admin: 11/20/18 07:30 Dose: 20 mg Documented by: Bisacodyl (Dulcolax) 10 mg SC DAILY PRN PRN Reason: Constipation Stop: 12/19/18 12:50 Cyanocobalamin (Vitamin B-12) 1,000 mcg PO DAILY [facility] Stop: 12/20/18 08:59 Last Admin: 11/20/18 07:31 Dose: 1,000 mcg Documented by: Diphenhydramine HCl (Benadryl Capsule) 25 mg PO Q6H PRN PRN Reason: Allergic Rhinitis/Insomnia Stop: 12/19/18 12:50 Famotidine (Pepcid) 20 mg PO Q12H PRN PRN Reason: Dyspepsia Stop: 12/19/18 12:50 Gabapentin (Neurontin) 100 mg PO [facility] Stop: 12/19/18 20:59 Last Admin: 11/19/18 20:52 Dose: 100 mg Documented by: Hydromorphone HCl (Dilaudid) 0.5 mg IV Q3H PRN PRN Reason: moderate pain (scale 4-6) Stop: 12/03/18 12:50 Last Admin: 11/20/18 14:27 Dose: 0.5 mg Documented by: Hydroxyzine HCl (Vistaril) 25 mg PO Q8H PRN PRN Reason: Anxiety Stop: 12/19/18 12:50 Acetaminophen (Ofirmev) 1,000 mg in 100 mls @ 400 mls/hr IV Q8 PRN PRN Reason: MILD Pain Rating 1,2,3 Stop: 12/19/18 12:50 Last Infusion: 11/20/18 15:50 Dose: Infused Documented by: Lorazepam (Ativan) 0.5 mg in 1 mls @ 0.5 mls/min IV Q8H PRN PRN Reason: Sedation/Anxiety Stop: 12/19/18 12:50 Influenza Virus Vaccine Quadrival (Flu Vaccine, Do Not Administer) 1 ea N/A PRN PRN PRN Reason: Notification Stop: 12/19/18 12:50 Loratadine (Claritin) 10 mg PO DAILY [facility] Stop: 12/20/18 08:59 Last Admin: 11/20/18 07:30 Dose: 10 mg Documented by: Lorazepam (Ativan) 0.5 mg PO Q8H PRN PRN Reason: Sedation/Anxiety Stop: 12/19/18 12:50 Magnesium Hydroxide (Milk Of Magnesia) 30 ml PO DAILY PRN PRN Reason: Constipation Stop: 12/19/18 12:50 Metoclopramide HCl (Reglan) 10 mg IV Q6H PRN PRN Reason: Nausea &/or Vomiting Stop: 12/19/18 12:50 Multivitamins (Multivitamin Tab) 1 tab PO QAM [facility] Stop: 12/20/18 08:59 Last Admin: 11/20/18 07:31 Dose: 1 tab Documented by: Naloxone HCl (Narcan) 0.1 mg IV Q5M PRN; Protocol PRN Reason: Oversedation/Resp Depression Stop: 12/19/18 12:50 Ondansetron HCl (Zofran) 4 mg IV Q6H PRN PRN Reason: Nausea &/or Vomiting Stop: 12/19/18 12:50 Oxycodone HCl (Roxicodone Immediate Rel) 5 - 10 mg PO Q4H PRN PRN Reason: Moderate-Severe Pain Stop: 12/03/18 12:50 Last Admin: 11/20/18 10:27 Dose: 10 mg Documented by: Pneumococcal Polyvalent Vaccine (Pneumococcal Vacc, Do Not Administer) 1 ea N/A PRN PRN PRN Reason: Notification Stop: 12/19/18 12:50 Polyethylene Glycol (Miralax Powder Packet) 17 gm PO Q6 [facility] Stop: 12/20/18 05:59 Last Admin: 11/20/18 13:29 Dose: 17 gm Documented by: Senna/Docusate Sodium (Senokot S) 2 tab PO HS [facility] Stop: 12/19/18 20:59 Last Admin: 11/19/18 20:52 Dose: 2 tab Documented by: Sodium Biphosphate/Sodium Phosphate (Fleet Enema) 132 ml SC ONE PRN PRN Reason: Constipation Stop: 12/19/18 12:50 Triamterene/HCTZ (Maxzide 37.5/25mg) 1 tab PO QAM [facility] Stop: 12/20/18 08:59 Last Admin: 11/20/18 07:30 Dose: 1 tab Documented by: Venlafaxine HCl (Effexor Extended Release) 300 mg PO QAM [facility] Stop: 12/20/18 08:59 Last Admin: 11/20/18 07:31 Dose: 300 mg Documented by: Vitamin D (Vitamin D3) 1,000 units PO DAILY [facility] Stop: 12/20/18 08:59 Last Admin: 11/20/18 07:30 Dose: 1,000 units Documented by:
[2018-11-20] MEDS: DOCUSATE SODIUM/SENNA 50/8.6MG TAB PO SCH (20:31)
[2018-11-20] MEDS: GABAPENTIN 100 MG CAP PO SCH (20:32)
[2018-11-21] MEDS: POLYETHYLENE (MIRALAX) 17 GM PACK PO SCH ×4 (05:33→23:54)
[2018-11-21] MEDS: MULTIVITAMIN TAB PO SCH (08:51)
[2018-11-21] MEDS: TRIAMTERENE/HCTZ 37.5/25MG TAB PO SCH (08:51)
[2018-11-21] MEDS: VENLAFAXINE HCL XR 150 MG CAPXR PO SCH (08:51)
[2018-11-21] MEDS: CHOLECALCIFEROL 1,000 UNITS TAB PO SCH (08:51)
[2018-11-21] MEDS: ATORVASTATIN 20 MG TAB PO SCH (08:51)
[2018-11-21] MEDS: CYANOCOBALAMIN 500 MCG TABLET (VITAMIN B-12) PO SCH (08:51)
[2018-11-21] MEDS: LORATADINE 10 MG TAB PO SCH (08:51)
--- NOTE | 2018-11-21 09:03 | Orthopedic Progress Note ---
Date of Service November 21, 2018 Assessment & Plan (1) Neurogenic claudication due to lumbar spinal stenosis: Debra is doing well. We will continue physical therapy today. Work on aggressive bowel regimen. Maintain SARIAH drain. Anticipate discharge home within the next 24 to 48 hours. Supervising Physician Co-Signing Physician Notes Dr. Cale Cassidy Subjective Debra is postoperative day 2 lumbar decompression fusion. She is quite anxious to return home. Has no complaints. Pain is controlled. She is passing flatus but no bowel movement yet. SARIAH drain output last shift was 30 cc. She is making progress with physical therapy. Review of Systems Review of Systems: All systems reviewed & are unremarkable except as noted in HPI & below Physical Exam Physical Exam: She sitting in a chair eating breakfast. Alert and oriented x3. No obvious distress. Lumbar dressing is clean dry and intact. Calf soft nontender bilaterally. Strength is intact bilateral lower extremities. Results & Data Vital Signs (Past 12 Hours) Vital Signs Temp Pulse Pulse Resp BP Pulse Ox 11/21/18 07:27 36.8 C 95 H 16 120/76 93 11/20/18 23:33 37.1 C 94 H 16 125/78 92
--- NOTE | 2018-11-21 13:50 | Hospitalist Progress Note ---
Date of Service November 21, 2018 Assessment & Plan (1) Post-operative state: s/p lumbar surgery POD#2. Pain is improved, well managed with medications. Post-operative course including activity and diet managed by Dr. Cassidy. (2) Acute blood loss anemia: Expected in post-operative state, no transfusion indicated at this time. (3) Hypertension: At goal, maxzide restarted today (4) CKD (chronic kidney disease) stage 3, GFR 30-59 ml/min: at baseline. (5) Depression: Stable, cont venlafaxine (6) PVD (peripheral vascular disease): Intolerant of aspirin, cont statin. Smoking cessation strongly advised. (7) Tobacco use disorder: contemplative phase (8) Urge incontinence of urine: H/o sacral nerve neurostimulator placement in 2013, vaginal sling procedure for incontinence in 2006 (9) DVT prophylaxis: SCDs/ambulation Full Code Dispo-per primary Ortho team Thank you for the consult. We will continue to follow her throughout her hospit alization. Lila Davison DO [facility] Hospitalist Subjective Doing well postoperatively. Denies any numbness or tingling in her feet. Postoperative back pain is controlled with medications. She has been ambulating and tolerating p.o. She is afebrile. Review of Systems Review of Systems: All systems reviewed & are unremarkable except as noted in HPI & below Physical Exam Physical Exam: CONSTITUTIONAL: WNWD, vitals as above, generally well- appearing EYES: normal conjunctivae, no scleral icterus ENT: MMM RESPIRATORY: clear to auscultation bilaterally, no crackles, rales or wheezes, normal respiratory effort CARDIOVASCULAR: regular rate and rhythm, S1 and 2 heard without murmurs, gallops or rubs, no JVD, no peripheral edema GASTROINTESTINAL: soft, nontender, nondistended MUSCULOSKELETAL: strength 5/5 throughout, head is normocephalic and atraumatic SKIN: warm and dry, lower back incision covered with dressing that is c/d/i, +SARIAH drain NEUROLOGIC: CN 2-12 grossly intact, no gross focal deficits. PSYCHIATRIC: alert cooperative and oriented Results & Data Vital Signs (Past 12 Hours) Vital Signs Temp Pulse Resp BP Pulse Ox 11/21/18 07:27 36.8 C 95 H 16 120/76 93 Medications Administered Current Inpatient Medications Acetaminophen (Tylenol) 1,000 mg PO Q8H PRN PRN Reason: MILD Pain Rating 1,2,3 Stop: 12/19/18 12:50 Al Hydrox/Mg Hydrox/Simethicone (Maalox) 30 ml PO Q6H PRN PRN Reason: Dyspepsia Stop: 12/19/18 12:50 Albuterol (Ventolin Hfa) 2 puffs INH Q6H PRN PRN Reason: Shortness Of Breath Stop: 12/19/18 15:27 Atorvastatin Calcium (Lipitor) 20 mg PO QAM [facility] Stop: 12/20/18 08:59 Last Admin: 11/21/18 08:51 Dose: 20 mg Documented by: Bisacodyl (Dulcolax) 10 mg [place] DAILY PRN PRN Reason: Constipation Stop: 12/19/18 12:50 Cyanocobalamin (Vitamin B-12) 1,000 mcg PO DAILY [facility] Stop: 12/20/18 08:59 Last Admin: 11/21/18 08:51 Dose: 1,000 mcg Documented by: Diphenhydramine HCl (Benadryl Capsule) 25 mg PO Q6H PRN PRN Reason: Allergic Rhinitis/Insomnia Stop: 12/19/18 12:50 Famotidine (Pepcid) 20 mg PO Q12H PRN PRN Reason: Dyspepsia Stop: 12/19/18 12:50 Gabapentin (Neurontin) 100 mg PO HS [facility] Stop: 12/19/18 20:59 Last Admin: 11/20/18 20:32 Dose: 100 mg Documented by: Hydromorphone HCl (Dilaudid) 0.5 mg IV Q3H PRN PRN Reason: moderate pain (scale 4-6) Stop: 12/03/18 12:50 Last Admin: 11/20/18 14:27 Dose: 0.5 mg Documented by: Hydroxyzine HCl (Vistaril) 25 mg PO Q8H PRN PRN Reason: Anxiety Stop: 12/19/18 12:50 Acetaminophen (Ofirmev) 1,000 mg in 100 mls @ 400 mls/hr IV Q8 PRN PRN Reason: MILD Pain Rating 1,2,3 Stop: 12/19/18 12:50 Last Infusion: 11/20/18 15:50 Dose: Infused Documented by: Lorazepam (Ativan) 0.5 mg in 1 mls @ 0.5 mls/min IV Q8H PRN PRN Reason: Sedation/Anxiety Stop: 12/19/18 12:50 Influenza Virus Vaccine Quadrival (Flu Vaccine, Do Not Administer) 1 ea N/A PRN PRN PRN Reason: Notification Stop: 12/19/18 12:50 Loratadine (Claritin) 10 mg PO DAILY [facility] Stop: 12/20/18 08:59 Last Admin: 11/21/18 08:51 Dose: 10 mg Documented by: Lorazepam (Ativan) 0.5 mg PO Q8H PRN PRN Reason: Sedation/Anxiety Stop: 12/19/18 12:50 Magnesium Hydroxide (Milk Of Magnesia) 30 ml PO DAILY PRN PRN Reason: Constipation Stop: 12/19/18 12:50 Metoclopramide HCl (Reglan) 10 mg IV Q6H PRN PRN Reason: Nausea &/or Vomiting Stop: 12/19/18 12:50 Multivitamins (Multivitamin Tab) 1 tab PO QAM [facility] Stop: 12/20/18 08:59 Last Admin: 11/21/18 08:51 Dose: 1 tab Documented by: Naloxone HCl (Narcan) 0.1 mg IV Q5M PRN; Protocol PRN Reason: Oversedation/Resp Depression Stop: 12/19/18 12:50 Ondansetron HCl (Zofran) 4 mg IV Q6H PRN PRN Reason: Nausea &/or Vomiting Stop: 12/19/18 12:50 Oxycodone HCl (Roxicodone Immediate Rel) 5 - 10 mg PO Q4H PRN PRN Reason: Moderate-Severe Pain Stop: 12/03/18 12:50 Last Admin: 11/20/18 10:27 Dose: 10 mg Documented by: Pneumococcal Polyvalent Vaccine (Pneumococcal Vacc, Do Not Administer) 1 ea N/A PRN PRN PRN Reason: Notification Stop: 12/19/18 12:50 Polyethylene Glycol (Miralax Powder Packet) 17 gm PO Q6 [facility] Stop: 12/20/18 05:59 Last Admin: 11/21/18 12:35 Dose: 17 gm Documented by: Senna/Docusate Sodium (Senokot S) 2 tab PO HS [facility] Stop: 12/19/18 20:59 Last Admin: 11/20/18 20:31 Dose: 2 tab Documented by: Sodium Biphosphate/Sodium Phosphate (Fleet Enema) 132 ml [place] ONE PRN PRN Reason: Constipation Stop: 12/19/18 12:50 Triamterene/HCTZ (Maxzide 37.5/25mg) 1 tab [place] [facility] Stop: 12/20/18 08:59 Last Admin: 11/21/18 08:51 Dose: 1 tab Documented by: Venlafaxine HCl (Effexor Extended Release) 300 mg PO [facility] Stop: 12/20/18 08:59 Last Admin: 11/21/18 08:51 Dose: 300 mg Documented by: Vitamin D (Vitamin D3) 1,000 units PO DAILY [facility] Stop: 12/20/18 08:59 Last Admin: 11/21/18 08:51 Dose: 1,000 units Documented by:
[2018-11-21] MEDS: DOCUSATE SODIUM/SENNA 50/8.6MG TAB PO SCH (20:13)
[2018-11-21] MEDS: GABAPENTIN 100 MG CAP PO SCH (20:13)
[2018-11-22] MEDS: POLYETHYLENE (MIRALAX) 17 GM PACK PO SCH (05:43)
--- NOTE | 2018-11-22 08:25 | Orthopedic Progress Note ---
Date of Service November 22, 2018 Assessment & Plan (1) Neurogenic claudication due to lumbar spinal stenosis: Overall Debra is doing quite well. We will discharge her home today. Restrictions have been reviewed in detail. Supervising Physician Co-Signing Physician Notes Dr. Cale Cassidy Subjective Overall Debra is doing well. Denies radicular leg pain. Back pain is con trolled. She had a bowel movement. Yesterday physical therapy she is ambling 375 feet. SARIAH drain output last shift was 5 cc. She is quite anxious to return home with her . Review of Systems Review of Systems: All systems reviewed & are unremarkable except as noted in HPI & below Physical Exam Physical Exam: She sitting in a chair eating breakfast. No acute distress. Strength is intact bilateral lower extremity's. Calf soft nontender bilaterally. Lumbar dressing is clean dry and intact. Results & Data Vital Signs (Past 12 Hours) Vital Signs Temp Pulse Resp BP Pulse Ox 11/22/18 06:31 37.0 C 107 H 18 144/83 H 94 11/21/18 23:37 36.9 C 99 H 20 137/83 92
--- NOTE | 2018-11-22 08:27 | Discharge Summary ---
Date of Service November 22, 2018 Admission HPI Per Admitting Provider This is an 83-year-old female who presents with chronic persistent back and leg pain. After failing extensive course of nonoperative care is here for surgical intervention. Admission Exam (Per Admitting) Constitutional WD/WN, vitals as above Eyes normal visual shirley by confrontation ENMT external ear and nose normal, oropharynx normal Neck normal visual inspection Respiratory normal respiratory effort Cardiovascular Vessels: normal peripheral pulses Extremities: normal capillary refill Chest (Breasts) Chest: normal inspection of chest Gastrointestinal (Abdomen) Inspection/Auscultation: abdomen normal to inspection Musculoskeletal no cyanosis or clubbing, extremities motor strength 5/5 Extremities: extremities normal to inspection and strength 5/5 throughout Skin no rashes, warm and dry Neurologic patellar DTR's 2+ bilat, sensation intact normal touch/pain/proprioception and moves all extremities Psychiatric A+Ox3, euthymic affect Discharge Data Consultations 11/19/18 12:51 Consult Case Management - Discharge Planning Routine Consult Hospitalist Routine Procedures Performed Operation Date: 11/19/18 10:05 Actual Procedures p L4-L5 Decompression and Fusion, Spinal Cord Monitoring - Cale Cassidy DO Hospital Course (1) Neurogenic claudication due to lumbar spinal stenosis: Patient has had an uncomplicated postoperative course. Lab values have been stable. She is making progress daily and physical therapy. Pain is well controlled. She was discharged home on postoperative day 3. Her lives with her. Discharge Instructions ACTIVITY RECOMMENDATIONS: SELF CARE INSTRUCTIONS AFTER THORACIC/LUMBAR FUSIONS 1. You may walk to your tolerance. It is good exercise for your legs and back. Expect some back and intermittent leg aches and pains. 2. You may perform "counter-top" level activities (make a sandwich, margot with a project, etc.). 3. No bending or lifting of more than 10 pounds or back twisting of any nature (roll like a log when turning in bed). 4. You may ride in a car for 20-30 minutes at a time. No driving until after your first visit with your doctor. 5. Frequent changes of position and restricting sitting to 30 minutes at a time will help limit the amount of back spasms and stiffness you may experience. 6. You may discontinue the use of ambulatory aids (cane, crutches, etc.) once your strength and confidence allow. 7. You may equipment installer the shower and let water strike your incision when you arrive home at least once daily. Do not take a tub bath, sit in a hot tub or go into a swimming pool until after your first recheck in the office. SPECIAL CARE INSTRUCTIONS: VERY IMPORTANT TO READ AND REVIEW A. Your surgical incision has been closed with a cosmetic suture under the skin that will dissolve in about 6 weeks. In 14 days, you can use a pair of clean scissors and cut the suture that is left outside of the skin at the ends of your incision. 1. The small skin tapes can be removed 7 days after surgery if they have not fallen off by that point. 2. You may keep the wound open to air as much as possible to promote healing after post-op day number 5 unless told otherwise by your doctor. 3. If you think the wound looks like it is becoming infected (redness or worsening drainage) and/or you are experiencing fever, chill or worsening back pain and muscle spasms, contact the office so that we may evaluate you as soon as possible. B. Complications are uncommon, but please contact us if you have any signs or symptoms of: 1. wound infection (fever higher than 102.5 degrees F, redness, separation of wound, drainage, or increasing pain from the incision) 2. blood clots in legs (pain, swelling, redness and warmth in legs) 3. urinary tract infection (fever higher than 102.5 degrees F, burning upon urination or increased frequency of urination) 4. nerve problems (inability to walk on your toes or heels, numbness, loss of bowel or bladder control) 5. any other symptoms that concern you C. Please call the office at if you have any concerns or questions about your operation or recovery. D. No smoking! Smoking drastically decreases the chance of a solid fusion. E. Do not take any anti-inflammatory medications (Indocin, Advil, Motrin, Aspirin, Naprosyn, etc.) as these may inhibit the chance of a solid fusion. Tylenol is okay to take for pain. MANAGING PAIN AFTER SPINAL SURGERY 1. Narcotic medication is intended for short-term use and will be provided for surgical pain. Surgical pain usually lasts for a period of 4-6 weeks. Narcotic medication includes Percocet, Vicodin, Darvocet, Tylenol #3 or Lortab. 2. Longer-term pain is more appropriately treated with non-narcotic medication such as Tylenol ES. 3. Muscle spasm is not appropriately treated with narcotics. Muscle relaxers such as Soma, Flexeril or Skelaxin can be used along with Tylenol ES. 4. Remember that we all live with some "aches and pains". This is not unusual or uncommon after an injury or as we get older. a. Back pain is expected and may include muscle spasms for 4 to 6 weeks after surgery. The pain should gradually improve. If the pain worsens for no apparent reason, please contact the office. b. Intermittent leg pain may also be experienced and should not be concerned about unless it worsens for no apparent reason. If so, please contact the office. 5. We will provide appropriate medication within the normal guidelines of their prescribed use. We will also be very cautious and aware of potential abuse and extended duration of patients' medication needs. a. Pain medications are for your comfort and to assist with sleep and rest so that the tissue can heal. They are not provided in order to return to normal activity and should not be used through the day. To do so or worsening pain at night can result from ongoing tissue damage and development of tolerance to the prescribed medicine. 6. Please allow 2-3 days to process refills. Prescriptions will not be mailed but must be picked up at the office. FOLLOW UP VISIT: Keep your scheduled follow-up appointment. Any questions, please call the office at . Supervising Physician Co-Signing Physician Notes Dr. Cale Cassidy
[2018-11-22] MEDS: LORATADINE 10 MG TAB PO SCH (08:37)
[2018-11-22] MEDS: ATORVASTATIN 20 MG TAB PO SCH (08:37)
[2018-11-22] MEDS: CYANOCOBALAMIN 500 MCG TABLET (VITAMIN B-12) PO SCH (08:37)
[2018-11-22] MEDS: MULTIVITAMIN TAB PO SCH (08:37)
[2018-11-22] MEDS: TRIAMTERENE/HCTZ 37.5/25MG TAB PO SCH (08:37)
[2018-11-22] MEDS: CHOLECALCIFEROL 1,000 UNITS TAB PO SCH (08:37)
[2018-11-22] MEDS: VENLAFAXINE HCL XR 150 MG CAPXR PO SCH (08:37)
--- NOTE | 2018-11-22 18:32 | Hospitalist Progress Note ---
Date of Service November 22, 2018 Assessment & Plan (1) Post-operative state: s/p lumbar surgery POD#3. Pain is improved, well managed with medications. Post-operative course including activity and diet managed by Dr. Cassidy. (2) Acute blood loss anemia: Expected in post-operative state, no transfusion indicated at this time. PCP to follow-up as outpatient (3) Hypertension: At goal, continue Maxide per home regimen (4) CKD (chronic kidney disease) stage 3, GFR 30-59 ml/min: at baseline. (5) Depression: Stable, cont venlafaxine (6) PVD (peripheral vascular disease): Intolerant of aspirin, cont statin. Smoking cessation strongly advised. (7) Tobacco use disorder: contemplative phase, patient states she wants to quit smoking but declines any nicotine patches. (8) Urge incontinence of urine: H/o sacral nerve neurostimulator placement in 2013, vaginal sling procedure for incontinence in 2006 (9) DVT prophylaxis: SCDs/ambulation Full Code Dispo-per primary Ortho team, likely DC today. Thank you for the consult. We will continue to follow her throughout her hospitalization. Lila Davison DO [facility] Hospitalist Subjective Patient seen just prior to departure. SARIAH drain was being pulled. Wound appeared to be healing well with no surrounding erythema or drainage. Pain was controlled with pain medication. The patient was otherwise denies symptoms. Review of Systems Review of Systems: All systems reviewed & are unremarkable except as noted in HPI & below Physical Exam Physical Exam: CONSTITUTIONAL: WNWD, vitals as above, generally well- appearing EYES: normal conjunctivae, no scleral icterus ENT: MMM RESPIRATORY: clear to auscultation bilaterally, no crackles, rales or wheezes, normal respiratory effort CARDIOVASCULAR: regular rate and rhythm, S1 and 2 heard without murmurs, gallops or rubs, no JVD, no peripheral edema GASTROINTESTINAL: soft, nontender, nondistended MUSCULOSKELETAL: strength 5/5 throughout, head is normocephalic and atraumatic SKIN: warm and dry, lower back incision covered with dressing that is c/d/i, +SARIAH drain NEUROLOGIC: CN 2-12 grossly intact, no gross focal deficits. PSYCHIATRIC: alert cooperative and oriented Results & Data Vital Signs (Past 12 Hours) Vital Signs Temp Pulse Pulse Pulse Resp BP Pulse Ox 11/22/18 13:23 93 11/22/18 11:19 37.0 C 109 H 94 H 107 H 18 144/83 H 94
== END 2018-11-22 12:00 | disposition home or self-care (01) | DRG 454 ==
LOC: ASU 08:00 → 3E 11:26

== ENCOUNTER 2022-10-06 17:43 | Inpatient (IN) ==
[2022-10-06] MEDS ORDERED: SODIUM CHLORIDE 0.9% 500 ML IV SCH (18:00)
--- NOTE | 2022-10-06 18:07 | Emergency Department Note ---
Impression & Plan Weakness, Acute UTI, LAUREANO (acute kidney injury), Acute dehydration, Hypokalemia ED Provider Note NAME: HUBERT RODRIGUEZ AGE: 87 SEX: F : 1935 ARRIVES VIA: Walk-In INFORMANT: [Patient][family] ED PROVIDER(S): [Gentry Ngo MD] CHIEF COMPLAINT: Weakness HISTORY OF PRESENT ILLNESS: The patient is an 87-year-old female who presents to the ER with increasing bilateral leg weakness for the last few days. Things have escalated to the point where she can no longer walk or stand. She does have a walker and cane at home but does not typically need these devices. There has been no shortness of breath or chest pain, no headache, no fall. No vomiting or diarrhea or urinary complaints, no abdominal pain. No recent medication changes. PMHx/PSHx: See Below SOCIAL HISTORY: See Below. PHYSICAL EXAM: GENERAL: Patient is in no acute distress. HEENT: No acute trauma, normocephalic atraumatic, mucous membranes moist, no nasal congestion. NECK: No stridor, no adenopathy, no meningismus, trachea is midline. LUNGS: She has crackles on the right, a few scattered crackles on the left, no wheezing or respiratory distress HEART: Subtle systolic murmur heard best at the right sternal border, regular rate and rhythm. ABDOMEN: Soft, nontender, bowel sounds positive, no peritonitis. EXTREMITIES: No cyanosis, mild bilateral pedal edema, full range of motion of all the joints without pain or difficulty, no signs for acute trauma. NEUROLOGIC: Oriented x 3, no speech slur or facial droop. She does have bilateral lower extremity weakness, she can barely lift either leg off the bed. She has no upper extremity cerebellar dysfunction. SKIN: No rash, no jaundice, no diaphoresis. DIFFERENTIAL DIAGNOSIS: Dehydration, electrolyte imbalance, stroke or TIA, UTI, anemia, pneumonia, [place], among others. EMERGENCY DEPARTMENT COURSE/PROCEDURES: Prior/Outside records reviewed: Previous ED note. ECG per my interpretation: Indication was weakness. The ECG shows a normal sinus rhythm with a rate of 75. 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 There is no ST elevation, no PVCs. The QTc is 439. Compared to an ECG from 29 May 2021, I see no significant change. Continuous Cardiac Monitoring per my interpretation: An order was placed for continuous cardiac monitoring. The monitor shows a rate of 75 with normal sinus rhythm. MEDICAL DECISION MAKING: There is no leukocytosis. A very mild anemia was seen. The patient has a histo ry of a mild anemia. There is a normal platelet count. Renal panel testing shows some very mild acute kidney injury with a creatinine of 1.42. Potassium was low at 3.2. No concerning liver enzyme elevation. Patient appeared to be in a euthyroid state. ECG shows a sinus rhythm, no ST elevation. No change compared to previous ECGs. Cardiac enzyme testing x1 is not consistent with acute cardiac injury. Urinalysis is suspicious for infection. Chest film per my review does not show mediastinal widening, pneumonia or pneumothorax. Brain CT shows no acute bleed or mass effect. On exam, patient was weak in both lower extremities. She was not toxic or febrile. No findings of acute CVA by my exam. Patient received IV saline, 1 L in total. She was given oral and IV potassium. I did order for a dose of oral Cipro for the presumed UTI however, this order was canceled by the admitting hospitalist. The patient presents with extreme weakness of both lower legs. She was at the point where she could not walk earlier. Her family cannot care for her in this condition. The patient will be hospitalized. Her weakness is multifactorial. She is dehydrated, she has a lower potassium, there is some mild acute kidney injury, she appears to have a UTI. I did speak at length with family, I spoke with case management, the on-call hospitalist was consulted. DISPOSITION: Patient's presentation and findings warrant a hospital stay. Past Med/Surg History Medical History Chronic back pain CKD (chronic kidney disease) stage 3, GFR 30-59 ml/min Degenerative disc disease Depression GERD (gastroesophageal reflux disease) Hyperlipidemia Hypertension Osteoarthritis Surgical History H/O bladder repair surgery "vaginal sling procedure for stress incontinence 11/2006 " H/O vaginal hysterectomy History of appendectomy History of arthroplasty of left knee History of arthroplasty of right knee History of carpal tunnel surgery "Right" History of tonsillectomy and adenoidectomy Family History Father Family hx of colon cancer Brother Family history of diabetes mellitus Sister Family history of diabetes mellitus Social History Smoking Status: Never smoker Cigarettes Per Day: 18; Second Hand Exposure: No; Do You Dip or Chew Tobacco: No; Hx Alcohol Use: No Hx Substance Use: No Preferred Language: Citizen Of [place] Communication Ability: Effective 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 Beliefs That Will Affect Care: None marital status: Current Living Situation: Spouse Feels Safe at Home: Yes Assistive Devices: Walker Allergies Allergies Allergy/AdvReac Type Severity Reaction Status Date / Time ceftriaxone Allergy Intermediate hives Verified 10/06/22 20:25 Iodinated Contrast Media Allergy Intermediate pruritus Verified 10/06/22 20:25 (feet) Penicillins Allergy Intermediate hives Verified 10/06/22 20:25 cisapride AdvReac Intermediate GI symptoms Verified 10/06/22 20:25 solifenacin AdvReac Intermediate blurred Verified 10/06/22 20:25 vision Home Meds Home Medications Medication Instructions Recorded Confirmed Prevagen 1 tab PO DAILY 10/06/22 10/06/22 cyanocobalamin (vitamin B-12) 1,000 mcg PO DAILY 10/06/22 10/06/22 1,000 mcg tablet (Vitamin B-12) donepezil 5 mg tablet 5 mg PO DAILY 10/06/22 10/06/22 lamotrigine 25 mg tablet 25 mg PO QAM 10/06/22 10/06/22 loratadine-pseudoephedrine ER 10 1 tab PO DAILY PRN ALLERGIES 10/06/22 10/06/22 mg-240 mg tablet,extended [id number] (Claritin-D 24 Hour) mirabegron 50 mg tablet,extended 50 mg PO QAM 10/06/22 10/06/22 release 24 hr (Myrbetriq) multivitamin 1 tab PO DAILY 10/06/22 10/06/22 risperidone 0.5 mg tablet 0.5 mg PO BID 10/06/22 10/06/22 sertraline 50 mg tablet 75 mg PO QAM 10/06/22 10/06/22 tramadol 50 mg tablet 50 mg PO Q8 PRN Pain 10/06/22 10/06/22 triamterene 37.5 1 tab PO QAM 10/06/22 10/06/22 mg-hydrochlorothiazide 25 mg tablet Results & Data (ED) Vital Signs Vital Signs - 24 hr 10/06/22 17:47 10/06/22 18:07 10/06/22 19:06 Pulse Rate 84 75 Pulse Rate [Apical] Pulse Rhythm Regular Pulse Rhythm [Apical] Pulse Strength Normal Pulse Strength [Apical] Respiratory Rate 20 Respiratory Effort / Characteristics Non-Labored Spontaneous Respiratory Depth Normal Respiratory Pattern Regular Blood Pressure 114/73 Blood Pressure [Right Arm] Blood Pressure Mean 86 Blood Pressure Mean [Right Arm] Blood Pressure Position Sitting Blood Pressure Position [Right Arm] Pulse Oximetry 96 92 Oxygen Delivery Method Room Air Room Air Sepsis Recent Fever Within 48 Hours No Sepsis New/Unexplained Change in Mental Status No Sepsis Action Taken by Nursing No Action Required 10/06/22 19:06 10/06/22 19:06 10/06/22 21:00 Pulse Rate 7 L Pulse Rate [Apical] 75 81 Pulse Rhythm Regular Pulse Rhythm [Apical] Regular Regular Pulse Strength Pulse Strength [Apical] Normal Normal Respiratory Rate 16 16 20 Respiratory Effort / Characteristics Non-Labored Spontaneous Non-Labored Spontaneous Respiratory Depth Normal Normal Respiratory Pattern Blood Pressure Blood Pressure [Right Arm] 133/71 129/68 Blood Pressure Mean Blood Pressure Mean [Right Arm] 91 88 Blood Pressure Position Blood Pressure Position [Right Arm] Lying Lying Pulse Oximetry 92 92 92 Oxygen Delivery Method Room Air Room Air Room Air Sepsis Recent Fever Within 48 Hours Sepsis New/Unexplained Change in Mental Status Sepsis Action Taken by [facility] Medications Current Medication List: was personally reviewed by me Laboratory Data Attestation: I reviewed the patient's lab results. 10/06/22 18:28 10/06/22 18:28 Lab Results 10/06/22 10/06/22 10/06/22 Range/Units 18:28 18:28 18:28 WBC 8.55 (4.8-10.8) K/ul RBC 3.43 L (4.20-5.40) M/uL Hgb 11.1 L (12.0-16.0) g/dl Hct 34.3 L (37.0-47.0) % MCV 100.0 (80.0-100.0) fL MCH 32.4 (25.0-34.0) pg MCHC 32.4 (32.0-36.0) g/dL RDW Std Deviation 58.9 H (36.4-46.3) fL RDW Coeff of Ami 15.9 H (11.5-14.5) % Plt Count 209 (130-400) K/uL MPV 10.3 (9.4-12.4) fL Immature Gran % (Auto) 0.6 % Neut % (Auto) 70.3 % Lymph % (Auto) 17.4 % [place] % (Auto) 8.9 % Eos % (Auto) 2.6 % Baso % (Auto) 0.2 % Neut # (Auto) 6.01 (1.40-6.50) K/uL Lymph # (Auto) 1.49 (1.2-3.4) K/uL [place] # (Auto) 0.76 H (0.11-0.59) K/uL Eos # (Auto) 0.22 (0-0.50) K/uL Baso # (Auto) 0.02 (0-0.2) K/uL Immature Gran # (Auto) 0.05 (0.01-0.20) K/uL Sodium 139 (136-145) mmol/L Potassium 3.2 L (3.5-5.1) mmol/L Chloride 103 (98-107) mmol/L Carbon Dioxide 28 (21-32) mmol/L Anion Gap 8 (3-11) BUN 22 (6-23) mg/dl Creatinine 1.42 H (0.6-1.2) mg/dl Est Cr Clr Drug Dosing Not Reportable Est GFR ( Amer) 38.7 ml/min Est GFR (Non-Af Amer) 33.4 ml/min BUN/Creatinine Ratio 15.5 (10-20) Glucose 106 H (70-99(Fasting)) mg/dl Calcium 10.2 (8.6-10.3) mg/dl Magnesium 2.2 (1.7-2.4) mg/dl Total Bilirubin 0.4 (0.2-1.0) mg/dl AST 8 L (13-39) U/L ALT 7 (7-52) U/L Alkaline Phosphatase 65 (34-104) U/L Troponin I High Sens 11.2 (0-14) pg/ml Total Protein 6.4 (6.0-8.3) gm/dl Albumin 3.8 (3.4-5.0) gm/dl Globulin 2.6 (2.5-4.0) gm/dl Albumin/Globulin Ratio 1.5 (0.9-2) TSH 2.120 (0.300-4.500) uIu/ml Urine Color Urine Appearance (Clear) Urine pH (4.5-7.5) Ur Specific [place] (1.000-1.030) Urine Protein (Negative) Urine Glucose (UA) (Negative) Urine Ketones (Negative) Urine Blood (Negative) Urine Nitrite (Negative) Urine Bilirubin (Negative) Urine Urobilinogen (Negative) Ur Leukocyte Esterase (Negative) Urine WBC (Auto) (0-5) /hpf Urine RBC (Auto) (0-4) /hpf U Hyaline Cast (Auto) (0-5) /lpf U Epithel Cells (Auto) (0-5) /lpf Urine Bacteria (Auto) (Negative) 10/06/22 Range/Units 20:16 WBC (4.8-10.8) K/ul RBC (4.20-5.40) M/uL Hgb (12.0-16.0) g/dl Hct (37.0-47.0) % MCV (80.0-100.0) fL MCH (25.0-34.0) pg MCHC (32.0-36.0) g/dL RDW Std Deviation (36.4-46.3) fL RDW Coeff of Ami (11.5-14.5) % Plt Count (130-400) K/uL MPV (9.4-12.4) fL Immature Gran % (Auto) % Neut % (Auto) % Lymph % (Auto) % [place] % (Auto) % Eos % (Auto) % Baso % (Auto) % Neut # (Auto) (1.40-6.50) K/uL Lymph # (Auto) (1.2-3.4) K/uL [place] # (Auto) (0.11-0.59) K/uL Eos # (Auto) (0-0.50) K/uL Baso # (Auto) (0-0.2) K/uL Immature Gran # (Auto) (0.01-0.20) K/uL Sodium (136-145) mmol/L Potassium (3.5-5.1) mmol/L Chloride (98-107) mmol/L Carbon Dioxide (21-32) mmol/L Anion Gap (3-11) BUN (6-23) mg/dl Creatinine (0.6-1.2) mg/dl Est Cr Clr Drug Dosing Est GFR ( Amer) ml/min Est GFR (Non-Af Amer) ml/min BUN/Creatinine Ratio (10-20) Glucose (70-99(Fasting)) mg/dl Calcium (8.6-10.3) mg/dl Magnesium (1.7-2.4) mg/dl Total Bilirubin (0.2-1.0) mg/dl AST (13-39) U/L ALT (7-52) U/L Alkaline Phosphatase (34-104) U/L Troponin I High Sens (0-14) pg/ml Total Protein (6.0-8.3) gm/dl Albumin (3.4-5.0) gm/dl Globulin (2.5-4.0) gm/dl Albumin/Globulin Ratio (0.9-2) TSH (0.300-4.500) uIu/ml Urine Color Yellow Urine Appearance Cloudy A (Clear) Urine pH 6.0 (4.5-7.5) Ur Specific [place] 1.012 (1.000-1.030) Urine Protein Negative (Negative) Urine Glucose (UA) Negative (Negative) Urine Ketones Negative (Negative) Urine Blood Negative (Negative) Urine Nitrite Negative (Negative) Urine Bilirubin Negative (Negative) Urine Urobilinogen Negative (Negative) Ur Leukocyte Esterase 3+ H (Negative) Urine WBC (Auto) >30 H (0-5) /hpf Urine RBC (Auto) 0-4 (0-4) /hpf U Hyaline Cast (Auto) 1-5 (0-5) /lpf U Epithel Cells (Auto) >30 H (0-5) /lpf Urine Bacteria (Auto) 1+ H (Negative) Administered Medications Discontinued Medications Sodium Chloride (Nss) 500 mls @ 999 mls/hr IV .Q31M YUKI Stop: 10/06/22 18:30 Last Infusion: 10/06/22 19:44 Dose: 0 mls/hr Documented By: Admin: 10/06/22 19:02 Dose: 999 mls/hr Documented By: PRINCE Sodium Chloride (Nss 1000ml) 500 mls @ 999 mls/hr IV .Q31M ONE Stop: 10/06/22 19:52 Last Infusion: 10/06/22 20:48 Dose: 0 mls/hr Documented By: Admin: 10/06/22 19:39 Dose: 999 mls/hr Documented By: PRINCE Potassium Chloride (K Karan / Wtr) 10 meq in 100 mls @ 100 mls/hr IV ONE ONE Stop: 10/06/22 20:21 Last Infusion: 10/06/22 20:48 Dose: 0 mls/hr Documented By: Admin: 10/06/22 19:39 Dose: 100 mls/hr Documented By: PRINCE Aztreonam 1,000 mg/ Dextrose 110 mls @ 100 mls/hr IV NOW STA; Protocol Stop: 10/06/22 22:16 Last Admin: 10/06/22 21:38 Dose: 100 mls/hr Documented By: PRINCE Potassium Chloride (Potassium Chloride Crtab 20 Meq Tabcr) 20 meq PO NOW STA Stop: 10/06/22 19:23 Last Admin: 10/06/22 19:35 Dose: 20 meq Documented By: PRINCE Imaging Data Radiologist's Impression: Chest X-Ray 10/06/22 17:54 XR chest 1V portable CLINICAL HISTORY: weakness TECHNIQUE: Single frontal radiograph of the chest was obtained. Comparison: Comparison is made to rib series 10/24/2021 FINDINGS: No lines and tubes are seen. Cardiomegaly is noted. The aortic arch is calcif ied. The lungs are clear. No evidence of pleural effusion or pneumothorax. IMPRESSION: No acute chest disease. ACT 112: Negative or not required by law. Electronically signed by: Elliott Hansen M.D. 10/06/2022 6:[address] 10/06/22 18:02 CT head/brain wo con CLINICAL HISTORY: weakness Technique: Contiguous axial CT images of the head were acquired from the base of the skull to the vertex without intravenous contrast administration. Images were viewed in brain, subdural and bone windows. Automated dose lowering techniques and/or adjustment according to patient size were utilized for this exam. Comparison: Comparison is made to CT head 05/29/2021 Findings: Areas of decreased attenuation are present in the periventricular and subcortical white matter bilaterally consistent with small vessel ischemic disease. Generalized cerebral atrophy with commensurate enlargement of the ventricles, sulci, and cisterns is also present. There is no acute intracranial hemorrhage or evidence of acute territorial infarction. No shift of the midline structures, mass effect, or extra-axial abnormalities are shown. Atherosclerotic calcifications are present in the intracranial segments of the internal carotid arteries. Imaged portions of the paranasal sinuses and mastoid air cells are clear. The orbits appear normal. There are no acute fractures of the calvaria or scalp swelling. Impression: No acute intracranial hemorrhage, no evidence of acute territorial infarction or other acute intracranial disease process. ACT 112: Negative or not required by law. Electronically signed by: Elliott Hansen M.D. 10/06/2022 7:07 PM Discharge Plan Visit Data Chief Complaint: Weakness Stated Complaint: WEAKNESS ED Provider: Gentry Ngo Discharge Problem: Weakness, Acute UTI, LAUREANO (acute kidney injury), Acute dehydration, Hypokalemia Patient Disposition: Admitted As Inpatient Condition: Fair Forms Stand Alone Forms: My [facility] Prescriptions Prescriptions: No Action multivitamin Tablet 1 tab PO DAILY donepezil 5 mg tablet 5 mg PO DAILY cyanocobalamin (vitamin B-12) [Vitamin B-12] 1,000 mcg Tablet 1,000 mcg PO DAILY tramadol 50 mg tablet 50 mg PO Q8 PRN (Reason: Pain) lamotrigine 25 mg tablet 25 mg PO QAM Claritin-D 24 Hour 10-240 mg Tablet Extended Release 24 Hr 1 tab PO DAILY PRN (Reason: ALLERGIES) triamterene-hydrochlorothiazid 37.5-25 mg tablet 1 tab PO QAM sertraline 50 mg tablet 75 mg PO QAM Myrbetriq 50 mg tablet extended release 24 hr 50 mg PO QAM risperidone 0.5 mg tablet 0.5 mg PO BID Prevagen 1 tab PO DAILY Referrals Referrals: Devi Luna DO [Primary Care Provider] -
--- NOTE | 2022-10-06 18:20 | XRay Report ---
XR chest 1V portable CLINICAL HISTORY: weakness TECHNIQUE: Single frontal radiograph of the chest was obtained. Comparison: Comparison is made to rib series 10/24/2021 FINDINGS: No lines and tubes are seen. Cardiomegaly is noted. The aortic arch is calcified. The lungs are clear . No evidence of pleural effusion or pneumothorax. IMPRESSION: No acute chest disease. ACT 112: Negative or not required by law. Electronically signed by: Elliott Hansen M.D. 10/06/2022 6:18 PM
[2022-10-06 18:48] LABS: Basophils # (auto) 0.02 K/uL (0-0.2); Basophils % (auto) 0.2 %; Eosinophils # (auto) 0.22 K/uL (0-0.50); Eosinophils % (auto) 2.6 %; Hematocrit (blood only) 34.3 % (37.0-47.0); Hemoglobin 11.1 g/dl (12.0-16.0); Immature Granulocytes # (auto) 0.05 K/uL (0.01-0.20); Immature Granulocytes % (auto) 0.6 %; Lymphocytes # (auto) 1.49 K/uL (1.2-3.4); Lymphocytes % (auto) 17.4 %; Mean Corpuscular Hemoglobin 32.4 pg (25.0-34.0); Mean Corpuscular Hgb Conc 32.4 g/dL (32.0-36.0); Mean Platelet Volume 10.3 fL (9.4-12.4); Monocytes # (auto) 0.76 K/uL (0.11-0.59); Monocytes % (auto) 8.9 %; Neutrophils # (auto) 6.01 K/uL (1.40-6.50); Neutrophils % (auto) 70.3 %; Platelet Count 209 K/uL (130-400); RDW Coefficient of Variation 15.9 % (11.5-14.5); RDW Standard Deviation 58.9 fL (36.4-46.3); Red Blood Count 3.43 M/uL (4.20-5.40); White Blood Count 8.55 K/ul (4.8-10.8)
[2022-10-06 19:03] LABS: Alanine Aminotransferase 7 U/L (7-52); Albumin Globulin Ratio 1.5 (0.9-2); Albumin Level 3.8 gm/dl (3.4-5.0); Alkaline Phosphatase 65 U/L (34-104); Anion Gap 8 (3-11); Aspartate Aminotransferase 8 U/L (13-39); BUN Creatinine Ratio 15.5 (10-20); Bilirubin,Total 0.4 mg/dl (0.2-1.0); Blood Urea Nitrogen 22 mg/dl (6-23); Calcium 10.2 mg/dl (8.6-10.3); Carbon Dioxide 28 mmol/L (21-32); Chloride 103 mmol/L (98-107); Est GFR (African American) 38.7 ml/min; Est GFR (Non-African American) 33.4 ml/min; Globulin 2.6 gm/dl (2.5-4.0); Glucose 106 mg/dl (70-99(Fasting)); Magnesium 2.2 mg/dl (1.7-2.4); Potassium 3.2 mmol/L (3.5-5.1); Sodium 139 mmol/L (136-145); Total Protein 6.4 gm/dl (6.0-8.3)
--- NOTE | 2022-10-06 19:09 | CT Scan Report ---
CT head/brain wo con CLINICAL HISTORY: weakness Technique: Contiguous axial CT images of the head were acquired from the base of the skull to the [place] stormy without intravenous contrast administration. Images were viewed in brain, subdural and [facility]. Automated dose lowering techniques and/or adjustment according to patient size were utilized for this exam. Comparison: Comparison is made to CT head 05/29/2021 Findings: Areas of decreased attenuation are present in the periventricular and subcortical white matter bilate rally consistent with small vessel ischemic disease. Generalized cerebral atrophy with commensurate e nlargement of the ventricles, sulci, and cisterns is also present. There is no acute intracranial hem orrhage or evidence of acute territorial infarction. No shift of the midline structures, mass effect, or extra-axial abnormalities are shown. Atherosclerotic calcifications are present in the intracran ial segments of the internal carotid arteries. Imaged portions of the paranasal sinuses and mastoid air cells are clear. The orbits appear normal. There are no acute fractures of the calvaria or scalp swelling. Impression: No acute intracranial hemorrhage, no evidence of acute territorial infarction or other acute intracra nial disease process. ACT 112: Negative or not required by law. Electronically signed by: Elliott Hansen M.D. 10/06/2022 7:07 PM
[2022-10-06 19:10] LABS: Troponin I High Sensitivity 11.2 pg/ml (0-14)
[2022-10-06] MEDS ORDERED: POTASSIUM CHLORIDE / WTR 10 MEQ/100 ML PLCT IV ONE (19:22)
[2022-10-06] MEDS ORDERED: SODIUM CHLORIDE 0.9% 1000ML 500 ML IV ONE (19:22)
[2022-10-06] MEDS ORDERED: POTASSIUM CHLORIDE CRTAB 20 MEQ TABCR PO STA ×2 (19:22→22:47)
[2022-10-06 20:29] LABS: Appearance Urine Cloudy (Clear); Bacteria Urine Automated 1+ (Negative); Bilirubin Urine Negative (Negative); Blood Urine Negative (Negative); Color Urine Yellow; Epithelial Cell Urine Auto >30 /lpf (0-5); Glucose Urine UA Negative (Negative); Ketones Urine Negative (Negative); Leukocyte Esterase Urine 3+ (Negative); Nitrite Urine Negative (Negative); Protein Urine Negative (Negative); RBC Urine Automated 0-4 /hpf (0-4); Specific Gravity Urine 1.012 (1.000-1.030); Urobilinogen Urine Negative (Negative); WBC Urine Automated >30 /hpf (0-5)
[2022-10-06] MEDS ORDERED: CIPROFLOXACIN 500 MG TAB PO STA (20:57)
[2022-10-06] MEDS ORDERED: AZTREONAM 1,000 MG in DEXTROSE 5% 100 ML IV STA (21:11)
[2022-10-06] MEDS ORDERED: NSS + 20MEQ KCL 20 MEQ/1,000 ML BAG IV ONE (22:59)
--- NOTE | 2022-10-06 23:13 | History & Physical Report ---
Date of Service October 06, 2022 Assessment & Plan (1) Weakness: Plan: Complicated UTI, no sepsis for now ARF on CKD New onset anemia, hemoglobin drop from normal outpatient baseline drawn February 2022, patient without bleeding complaints, ? Secondary to left renal mass possible malignancy, 2.8 x 2.6 cm on outpatient imaging February 2022, patient yet to see Urology outpatient Hypokalemia secondary to decreased p.o. intake, home diuretic Rx hypertension, BP on the lower side hx PVD COPD/pulmonary hypertension, baseline shortness of breath/cough symptoms hx GERD/gastroparesis lmood disorder, at baseline dementia as per records, patient mentating well ongoing tobacco abuse GMF Urine CS, Azactam Monitor creatinine response to IVF Hold home diuretic until creatinine back to baseline Renal ultrasound if without improvement Anemia work-up, transfuse PRBC if hemoglobin less than 8 and for symptomatic anemia, history PVD Outpatient urology evaluation for left renal mass Replace electrolytes PT OT eval DVT prophylaxis. Heparin subcu DNR as per patient's prior directives. Patient's son requesting updates from providers. Mr. Claude Alves, contact #[phone]. Text document was generated using AIS voice recognition software. It may contain grammatical or spelling errors. Kindly contact undersigned for clarification of any documentation item in question. History of Present Illness Chief Complaint: Weakness Primary Care Provider: Devi Luna, History obtained from patient, family, and records. Medical history significant for hypertension, hyperlipidemia, PVD, COPD, pulmonary hypertension, GERD, gastroparesis, CRI baseline creatinine 1.1), left renal mass possible malignancy, mood disorder, dementia as per records, ongoing tobacco abuse. Last confinement 2018 under orthopedic spine service for lumbar decompression surgery. Patient noted to have increasing weakness over the last few days. Usual back pain complaints. Patient denies headache, chest pain, SOB. Denies abdominal pain, black/bloody stools. No fever, no chills, denies dysuria symptoms. Appetite not the best. Patient brought to the ER by family. Medical History as above Surgical History : Knee surgeries, hemorrhoidectomy, sacral nerve stimulator placement, tonsillectomy, adenoidectomy, cataract surgery, cystocele repair, vaginal sling procedure, vaginal hysterectomy Family History : Breast cancer, heart disease, CAD, lymphoma, kidney cancer Personal/Social history : Half pack daily, no EtOH intake, retired [employer] Allergies Allergy/AdvReac Type Severity Reaction Status Date / Time ceftriaxone Allergy Intermediate hives Verified 10/06/22 20:25 Iodinated Contrast Media Allergy Intermediate pruritus Verified 10/06/22 20:25 (feet) Penicillins Allergy Intermediate hives Verified 10/06/22 20:25 cisapride AdvReac Intermediate GI symptoms Verified 10/06/22 20:25 solifenacin AdvReac Intermediate blurred Verified 10/06/22 20:25 vision Home Medications Medication Instructions Recorded Confirmed Type Prevagen 1 tab PO DAILY 10/06/22 10/06/22 History cyanocobalamin (vitamin B-12) 1,000 mcg PO DAILY 10/06/22 10/06/22 History 1,000 mcg tablet (Vitamin B-12) donepezil 5 mg tablet 5 mg PO DAILY 10/06/22 10/06/22 History lamotrigine 25 mg tablet 25 mg PO QAM 10/06/22 10/06/22 History loratadine-pseudoephedrine ER 10 1 tab PO DAILY PRN ALLERGIES 10/06/22 10/06/22 History mg-240 mg tablet,extended [id number] (Claritin-D 24 Hour) mirabegron 50 mg tablet,extended 50 mg PO QAM 10/06/22 10/06/22 History release 24 hr (Myrbetriq) multivitamin 1 tab PO DAILY 10/06/22 10/06/22 History risperidone 0.5 mg tablet 0.5 mg PO BID 10/06/22 10/06/22 History sertraline 50 mg tablet 75 mg PO QAM 10/06/22 10/06/22 History tramadol 50 mg tablet 50 mg PO Q8 PRN Pain 10/06/22 10/06/22 History triamterene 37.5 1 tab PO QAM 10/06/22 10/06/22 History mg-hydrochlorothiazide 25 mg tablet Past Med/Surg History Medical History Chronic back pain CKD (chronic kidney disease) stage 3, GFR 30-59 ml/min Degenerative disc disease Depression GERD (gastroesophageal reflux disease) Hyperlipidemia Hypertension Osteoarthritis Surgical History H/O bladder repair surgery "vaginal sling procedure for stress incontinence 11/2006 " H/O vaginal hysterectomy History of appendectomy History of arthroplasty of left knee History of arthroplasty of right knee History of carpal tunnel surgery "Right" History of tonsillectomy and adenoidectomy Family History Father Family hx of colon cancer Brother Family history of diabetes mellitus Sister Family history of diabetes mellitus Social History Smoking Status: Current every day smoker Tobacco Type: Cigarettes Cigarettes Per Day: 7-9; Second Hand Exposure: No; Do You Dip or Chew Tobacco: No; Tobacco Cessation Education Requested by Patient: No Hx Alcohol Use: No Hx Substance Use: No Preferred Language: Swedish Communication Ability: Effective Gastrointestinal Technician Required: No Beliefs That Will Affect Care: None marital status: Current Living Situation: Spouse Other Information That Helps Us Care for You: No Feels Safe at Home: Yes Safety Concerns: Feels Safe At This Time Assistive Devices: Cane and Walker Review of Systems Review of Systems: As per HPI, all other systems reviewed and negative Physical Exam Physical Exam: GENERAL: Comfortable, pleasant, slightly hard of hearing, no respiratory distress SKIN: Pallor, warm HEENT: Pale palpebral conjunctivae, no ptosis, dry buccal mucosa NECK : Supple, no tenderness CHEST : Decreased breath sounds, no tenderness HEART : RRR, no obvious murmurs ABDOMEN: Some distention, nontender RECTAL : Refused EXTREMITIES : Minimal LE swelling, no LE tenderness, no other conspicuous deformities noted NEUROLOGIC : Coherent, no facial asymmetry, slightly hard of hearing, gait and stance not assessed Results & Data Results & Data Vital Signs (Past 12 Hours) Vital Signs Pulse Pulse Resp BP BP Pulse Ox O2 Del Method 10/06/22 22:09 87 10/06/22 21:00 81 20 129/68 92 Room Air 10/06/22 19:06 7 L 16 92 Room Air 10/06/22 19:06 75 16 133/71 92 Room Air 10/06/22 19:06 92 Room Air 10/06/22 18:07 75 10/06/22 17:47 84 20 114/73 96 Room Air Laboratory Results Laboratory Results WBC 8.55 K/ul (4.8-10.8) 10/06/22 18:28 RBC 3.43 M/uL (4.20-5.40) L 10/06/22 18: Hgb 11.1 g/dl (12.0-16.0) L 10/06/22 18: Hct 34.3 % (37.0-47.0) L 10/06/22 18: MCV 100.0 fL (80.0-100.0) 10/06/22 18: MCH 32.4 pg (25.0-34.0) 10/06/22 18: MCHC 32.4 g/dL (32.0-36.0) 10/06/22 18: RDW Std Deviation 58.9 fL (36.4-46.3) H 10/06/22 18: RDW Coeff of Ami 15.9 % (11.5-14.5) H 10/06/22 18: Plt Count 209 K/uL (130-400) 10/06/22 18: MPV 10.3 fL (9.4-12.4) 10/06/22 18: Immature Gran % (Auto) 0.6 % 10/06/22 18: Neut % (Auto) 70.3 % 10/06/22 18: Lymph % (Auto) 17.4 % 10/06/22 18: Blanco % (Auto) 8.9 % 10/06/22 18: Eos % (Auto) 2.6 % 10/06/22 18: Baso % (Auto) 0.2 % 10/06/22 18: Neut # (Auto) 6.01 K/uL (1.40-6.50) 10/06/22 18: Lymph # (Auto) 1.49 K/uL (1.2-3.4) 10/06/22 18: [place] # (Auto) 0.76 K/uL (0.11-0.59) H 10/06/22 18: Eos # (Auto) 0.22 K/uL (0-0.50) 10/06/22 18: Baso # (Auto) 0.02 K/uL (0-0.2) 10/06/22 18: Immature Gran # (Auto) 0.05 K/uL (0.01-0.20) 10/06/22 18:28 Sodium 139 mmol/L (136-145) 10/06/22 18:28 Potassium 3.2 mmol/L (3.5-5.1) L 10/06/22 18:28 Chloride 103 mmol/L (98-107) 10/06/22 18:28 Carbon Dioxide 28 mmol/L (21-32) 10/06/22 18:28 Anion Gap 8 (3-11) 10/06/22 18:28 BUN 22 mg/dl (6-23) 10/06/22 18:28 Creatinine 1.42 mg/dl (0.6-1.2) H 10/06/22 18:28 Est Cr Clr Drug Dosing Not Reportable 10/06/22 18: Est GFR ( Amer) 38.7 ml/min 10/06/22 18: Est GFR (Non-Af Amer) 33.4 ml/min 10/06/22 18:28 BUN/Creatinine Ratio 15.5 (10-20) 10/06/22 18: Glucose 106 mg/dl (70-99(Fasting)) H 10/06/22 18:28 Calcium 10.2 mg/dl (8.6-10.3) 10/06/22 18: Magnesium 2.2 mg/dl (1.7-2.4) 10/06/22 18: Total Bilirubin 0.4 mg/dl (0.2-1.0) 10/06/22 18:28 AST 8 U/L (13-39) L 10/06/22 18:28 ALT 7 U/L (7-52) 10/06/22 18:28 Alkaline Phosphatase 65 U/L (34-104) 10/06/22 18:28 Troponin I High Sens 11.2 pg/ml (0-14) 10/06/22 18:28 Total Protein 6.4 gm/dl (6.0-8.3) 10/06/22 18:28 Albumin 3.8 gm/dl (3.4-5.0) 10/06/22 18:28 Globulin 2.6 gm/dl (2.5-4.0) 10/06/22 18:28 Albumin/Globulin Ratio 1.5 (0.9-2) 10/06/22 18:28 TSH 2.120 uIu/ml (0.300-4.500) 10/06/22 18:28 Urine Color Yellow 10/06/22 20:16 Urine Appearance Cloudy (Clear) A 10/06/22 20:16 Urine pH 6.0 (4.5-7.5) 10/06/22 20:16 Ur Specific [place] 1.012 (1.000-1.030) 10/06/22 20:16 Urine Protein Negative (Negative) 10/06/22 20:16 Urine Glucose (UA) Negative (Negative) 10/06/22 20:16 Urine Ketones Negative (Negative) 10/06/22 20:16 Urine Blood Negative (Negative) 10/06/22 20:16 Urine Nitrite Negative (Negative) 10/06/22 20:16 Urine Bilirubin Negative (Negative) 10/06/22 20:16 Urine Urobilinogen Negative (Negative) 10/06/22 20:16 Ur Leukocyte Esterase 3+ (Negative) H 10/06/22 20:16 Urine WBC (Auto) >30 /hpf (0-5) H 10/06/22 20:16 Urine RBC (Auto) 0-4 /hpf (0-4) 10/06/22 20:16 U Hyaline Cast (Auto) 1-5 /lpf (0-5) 10/06/22 20:16 U Epithel Cells (Auto) >30 /lpf (0-5) H 10/06/22 20:16 Urine Bacteria (Auto) 1+ (Negative) H 10/06/22 20:16 Impressions Chest X-Ray 10/06/22 17:54 XR chest 1V portable CLINICAL HISTORY: weakness TECHNIQUE: Single frontal radiograph of the chest was obtained. Comparison: Comparison is made to rib series 10/24/2021 FINDINGS: No lines and tubes are seen. Cardiomegaly is noted. The aortic arch is calcified. The lungs are clear. No evidence of pleural effusion or pneumothorax. IMPRESSION: No acute chest disease. ACT 112: Negative or not required by law. Electronically signed by: Elliott Hansen M.D. 10/06/2022 6:[address] 10/06/22 18:02 CT head/brain wo con CLINICAL HISTORY: weakness Technique: Contiguous axial CT images of the head were acquired from the base of the skull to the vertex without intravenous contrast administration. Images were viewed in brain, subdural and bone windows. Automated dose lowering techniques and/or adjustment according to patient size were utilized for this exam. Comparison: Comparison is made to CT head 05/29/2021 Findings: Areas of decreased attenuation are present in the periventricular and subcortical white matter bilaterally consistent with small vessel ischemic disease. Generalized cerebral atrophy with commensurate enlargement of the ventricles, sulci, and cisterns is also present. There is no acute intracranial hemorrhage or evidence of acute territorial infarction. No shift of the midline structures, mass effect, or extra-axial abnormalities are shown. Atherosclerotic calcifications are present in the intracranial segments of the internal carotid arteries. Imaged portions of the paranasal sinuses and mastoid air cells are clear. The orbits appear normal. There are no acute fractures of the calvaria or scalp swelling. Impression: No acute intracranial hemorrhage, no evidence of acute territorial infarction or other acute intracranial disease process. ACT 112: Negative or not required by law. Electronically signed by: Elliott Hansen M.D. 10/06/2022 7:07 PM Diagnostic Findings EKG as per my interpretation : Rate 75, LAD, LAFB, inferior infarct, T wave flat tening inferior leads, low voltage
[2022-10-07] MEDS ORDERED: PROMETHAZINE HCL 6.25 MG in SODIUM CHLORIDE 0.9% 50 ML IV PRN (00:30)
[2022-10-07] MEDS ORDERED: traMADol HCL 50 MG TABLET PO PRN (00:30)
[2022-10-07] MEDS ORDERED: ACETAMINOPHEN 325 MG TAB PO PRN (00:30)
[2022-10-07] MEDS: risperiDONE 0.5 MG TABLET PO SCH ×3 (01:17→21:05)
[2022-10-07] MEDS: HEPARIN SOD 5,000 UNIT/0.5 ML VIAL SQ SCH ×3 (05:52→21:04)
[2022-10-07 07:24] LABS: Basophils # (auto) 0.03 K/uL (0-0.2); Basophils % (auto) 0.4 %; Eosinophils # (auto) 0.25 K/uL (0-0.50); Eosinophils % (auto) 3.3 %; Hematocrit (blood only) 32.8 % (37.0-47.0); Hemoglobin 10.5 g/dl (12.0-16.0); Immature Granulocytes # (auto) 0.05 K/uL (0.01-0.20); Immature Granulocytes % (auto) 0.7 %; Lymphocytes # (auto) 1.13 K/uL (1.2-3.4); Lymphocytes % (auto) 14.8 %; Mean Corpuscular Hemoglobin 32.3 pg (25.0-34.0); Mean Corpuscular Volume 100.9 fL (80.0-100.0); Mean Platelet Volume 10.1 fL (9.4-12.4); Monocytes # (auto) 0.64 K/uL (0.11-0.59); Monocytes % (auto) 8.4 %; Neutrophils # (auto) 5.54 K/uL (1.40-6.50); Neutrophils % (auto) 72.4 %; Platelet Count 188 K/uL (130-400); RDW Coefficient of Variation 15.7 % (11.5-14.5); RDW Standard Deviation 58.7 fL (36.4-46.3); Red Blood Count 3.25 M/uL (4.20-5.40); Reticulocyte % 1.8 % (0.5-2.0); Reticulocytes # 0.06 10^6/uL (0.02-0.10); White Blood Count 7.64 K/ul (4.8-10.8)
[2022-10-07 07:44] LABS: BUN Creatinine Ratio 17.3 (10-20); Calcium 9.4 mg/dl (8.6-10.3); Creatinine Clr Calc Pharmacy 45.3 ml/min; Est GFR (African American) 60.5 ml/min; Est GFR (Non-African American) 52.2 ml/min; Potassium 3.6 mmol/L (3.5-5.1)
[2022-10-07] MEDS ORDERED: AZTREONAM 1,000 MG in DEXTROSE 5% 100 ML IV SCH (08:00)
[2022-10-07 08:04] LABS: Folate (Folic Acid),Ser orPlas 3.71 ng/ml (>5.38)
[2022-10-07 08:07] LABS: Ferritin 12.4 ng/ml (8-388)
[2022-10-07] MEDS: VIBEGRON 75 MG TAB PO SCH (08:37)
[2022-10-07] MEDS: MULTIVITAMIN TAB PO SCH (08:38)
[2022-10-07] MEDS: lamoTRIgine 25 MG TAB PO SCH (08:38)
[2022-10-07] MEDS: DONEPEZIL HCL 5 MG TAB PO SCH (08:38)
[2022-10-07] MEDS: SERTRALINE HCL 50 MG TABLET PO SCH (08:38)
[2022-10-07] MEDS: CYANOCOBALAMIN (B-12) 500 MCG TABLET PO SCH (08:38)
[2022-10-07] MEDS: AZTREONAM 2,000 MG in DEXTROSE 5% 100 ML IV SCH ×3 (09:43→23:00)
[2022-10-07] MEDS: FOLIC ACID 1 MG TAB PO SCH (11:52)
--- NOTE | 2022-10-07 14:01 | Student Report ---
[facility] Student Progress Note Advanced Practice Practitioner Student Attestation: Not to be used for clinical decision making or plan of care formulation. Date of Service Date of service: October 07, 2022 Subjective Subjective: NAEO. Pt states that overall she feels better. Denies fever, chills, LAZO, CP, SOB, N/V/D. OOB to BR with assistance but still very weak. ROS ROS: See above for pertinent positives & negatives. A total of 10 systems reviewed and were otherwise negative. Physical Exam Physical Exam: Vital signs reviewed. General: Well-appearing [], in no significant distress. HEENT: No scleral icterus, PERRLA, neck supple. Atraumatic. Cardiovascular: Regular rate and rhythm, no extra sounds. Pulmonary: Clear to auscultation bilaterally, normal work of breathing. Abdomen: Soft, nontender, nondistended, positive bowel sounds. Musculoskeletal: Atraumatic, no peripheral edema. Neurologic: Patient awake alert and oriented x 3, full strength in all 4 extremities. Cranial nerves 2 through 12 grossly intact. Skin: Warm, dry, no rash Results Results: Vital Signs Temp 36.6 C 10/07/22 06:45 Pulse 83 10/07/22 06:45 Resp 18 10/07/22 06:45 BP 111/67 10/07/22 06:45 Pulse Ox 94 10/07/22 06:45 O2 Del Method Room Air 10/07/22 06:45 Intake & Output 10/06/22 10/07/22 10/07/22 18:59 06:59 18:59 Intake Total 1210 / 1210 110 / 110 Output Total 450 / 450 Balance 760 / 760 110 / 110 Weight 78.3 kg Intake: IV 1210 / 1210 110 / 110 Aztreonam 1,000 mg In Dextrose 110 / 110 5% 100 ml @ 100 mls/hr IV NOW STA Rx#:[id number] Aztreonam 2,000 mg In Dextrose 110 / 110 5% 100 ml @ 110 mls/hr IV Q8H [facility] Rx#:[id number] Potassium Chloride / Wtr 10 meq 100 / 100 In 100 ml @ 100 mls/hr IV ONE ONE Rx#:[id number] Sodium Chloride 0.9% 1000ML 500 500 / 500 ml @ 999 mls/hr IV .Q31M ONE Rx#:[id number] Sodium Chloride 0.9% 500 ml @ 500 / 500 999 mls/hr IV .Q31M [facility] Rx#: [id number] Output: Urine 450 / 450 Other: Weight Measurement Method Built in [facility] Short CBC 10/06/22 10/07/22 Range/Units 18:28 06:27 WBC 8.55 7.64 (4.8-10.8) K/ul Hgb 11.1 L 10.5 L (12.0-16.0) g/dl Hct 34.3 L 32.8 L (37.0-47.0) % Plt Count 209 188 (130-400) K/uL BMP 10/06/22 10/07/22 18:28 06:27 Sodium 139 141 Potassium 3.2 L 3.6 Chloride 103 110 H Carbon Dioxide 28 26 BUN 22 17 Creatinine 1.42 H 0.98 D Glucose 106 H 94 Calcium 10.2 9.4 Liver Function 10/06/22 Range/Units 18:28 Total Bilirubin 0.4 (0.2-1.0) mg/dl AST 8 L (13-39) U/L ALT 7 (7-52) U/L Alkaline Phosphatase 65 (34-104) U/L Albumin 3.8 (3.4-5.0) gm/dl Urine 10/06/22 Range/Units 20:16 Urine Color Yellow Urine Appearance Cloudy A (Clear) Urine pH 6.0 (4.5-7.5) Ur Specific [place] 1.012 (1.000-1.030) Urine Protein Negative (Negative) Urine Glucose (UA) Negative (Negative) Chest X-Ray 10/06/22 17:54 XR chest 1V portable CLINICAL HISTORY: weakness TECHNIQUE: Single frontal radiograph of the chest was obtained. Comparison: Comparison is made to rib series 10/24/2021 FINDINGS: No lines and tubes are seen. Cardiomegaly is noted. The aortic arch is calcified. The lungs are clear. No evidence of pleural effusion or pneumothorax. IMPRESSION: No acute chest disease. ACT 112: Negative or not required by law. Electronically signed by: Elliott Hansen M.D. 10/06/2022 6:[address] 10/06/22 18:02 CT head/brain wo con CLINICAL HISTORY: weakness Technique: Contiguous axial CT images of the head were acquired from the base of the skull to the vertex without intravenous contrast administration. Images were viewed in brain, subdural and bone windows. Automated dose lowering techniques and/or adjustment according to patient size were utilized for this exam. Comparison: Comparison is made to CT head 05/29/2021 Findings: Areas of decreased attenuation are present in the periventricular and subcortical white matter bilaterally consistent with small vessel ischemic disease. Generalized cerebral atrophy with commensurate enlargement of the ventricles, sulci, and cisterns is also present. There is no acute intracranial hemorrhage or evidence of acute territorial infarction. No shift of the midline structures, mass effect, or extra-axial abnormalities are shown. Atherosclerotic calcifications are present in the intracranial segments of the internal carotid arteries. Imaged portions of the paranasal sinuses and mastoid air cells are clear. The orbits appear normal. There are no acute fractures of the calvaria or scalp swelling. Impression: No acute intracranial hemorrhage, no evidence of acute territorial infarction or other acute intracranial disease process. ACT 112: Negative or not required by law. Electronically signed by: Elliott Hansen M.D. 10/06/2022 7:07 PM A&P A&P: 1. UTI w/out sepsis causing ambulatory dysfunction/weakness Aztreonam given and ED, now continues. Continue antibiotics for 10 days (ends 10/17) pending urine culture. Daily CBC, BMP, Mag 2. LAUREANO on CKD Dehydration, hypokalemia. Pt rec'd 2L NSS in ED, potassium repleted, 3.6 on recheck. LAUREANO resolved, creat 0.98. Baseline approx 1.2. Of note, pt has 3.1cm lesion on upper left kidney, appearance typical for renal cell carcinoma from CT scan 09/2021 and repeat unchanged in size from 02/2022. Labs as above Avoid nephrotoxic medications Needs follow-up re: CT scan results. 3. Anemia Hgb in February was 13.9. Pt noted to have renal mass on CT scan from February, also had heme positive stool this admission. Last colonoscopy 2020, no s/s acute or chronic processes. Pt without overt s/s bleeding at this time. Will cont to monitor CBC. Continue cyanocobalamin and folic acid 4. COPD CXR negative on admission. Does not have home medication regimen. 5. HTN, HLD Pt takes triamterene-HCTZ at home, holding for now Does not take a statin. 6. Overactive bladder Pt takes mirabegron at home, ordered vibegron inpatient 7. Depression/Dementia/Bipolar Continue donepezil, lamotrigine, risperidone, sertraline 8. Osteoarthritis/DDD Acetaminophen for mild-mod pain Tramadol PRN for moderate-severe pain 9. DVT prophylaxis Heparin 5000units, every 8hrs 10. Disposition Remains under hospitalist service. Not planned d/c date at this time.
--- NOTE | 2022-10-07 14:07 | Electrocardiogram Report ---
Test Reason : Blood Pressure : / mmHG Vent. Rate : 075 BPM Atrial Rate : 075 BPM P-R Int : 200 ms QRS Dur : 084 ms QT Int : 394 ms P-R-T Axes : 067 -17 039 degrees QTc Int : 439 ms Normal sinus rhythm Low voltage QRS Inferior infarct (cited on or before 30-APR-2015) Cannot rule out Anteroseptal infarct (cited on or before 30-APR-2015) Abnormal ECG When compared with ECG of 29-MAY-2021 16:00, Questionable change in initial forces of Septal leads Confirmed by Boni Doran ([id number]) on 10/07/2022 2:06:22 PM Referred By: REFERRED SELF Confirmed By:Boni Doran
--- NOTE | 2022-10-07 15:54 | Hospitalist Progress Note ---
Date of Service October 07, 2022 Assessment & Plan (1) Weakness: (2) Acute UTI: Plan: Admit to med/surg Patient presenting from home with generalized weakness. UA suggestive of UTI On aztreonam (day 2) due to PCN allergy Follow urine culture PT/OT (3) LAUREANO (acute kidney injury): Plan: baseline creat ~ 1.1 Creat 1.4 on admission, improved to 0.9 with IVF Continue to monitor renal functions (4) Heme positive stool: (5) Anemia: Plan: hgb 11.1 -> 10.5, hgb 13.9 03/2022 on outpatient labs ? due to underlying renal mass Stool also heme positive however no signs of gross bleeding colonoscopy 10/2020 - Diverticulosis in the sigmoid colon, The examination was otherwise normal on direct and retroflexion views. Folate mildly low 3.7, will start replacement, otherwise anemia panel unremarkable (6) Renal mass, left: Plan: Kidney CT 02/2022 - 2.8 x 2.6 cm enhancing mass upper pole of the left kidney, most compatible with renal cell carcinoma Will need close outpatient follow up (7) CKD (chronic kidney disease) stage 3, GFR 30-59 ml/min: (8) OAB (overactive bladder): Plan: s/p nerve stimulator treatment of UTI as above (9) Bipolar disorder: (10) Depression: Plan: stable, continue home meds DVT PROPHYLAXIS SQ Heparin Patient seen in collaboration with Dr. Davison. Admission and Anticipated Discharge Date Admission Date: October 06, 2022 Supervising Physician Co-Signing Physician Notes I have seen and examined the patient and have discussed the case with the provider above. I agree with the assessment and plan as stated. 87 yo F presents with UTI. She denies symptoms to me today. She is hemodynamically stable and afebrile and tolerating PO. Abdomen soft, NTND. No flank pain. She is in NAD PT/OT ordered. Agree wtih continuing aztreonam for now pending culture results. Will likely de-escalate to Bactrim or Cipro tomorrow. Saman, DO Subjective Follow-up for generalized weakness, UTI, anemia. Patient seen and examined. Reports feeling much improved. Observed patient ambulate from bathroom with PT. Denies chest pain and shortness of breath. No lightheadedness or dizziness. Denies abdominal pain and nausea. No urinary symptoms. Physical Exam Constitutional: WD/WN, vitals as above no acute distress resting in bed Respiratory: normal respiratory effort, lungs clear to auscultation Cardiovascular: Rate/Rhythm: regular rate and regular rhythm Vessels: normal peripheral pulses Extremities: + edema (trace edema BLE) Gastrointestinal (Abdomen): Percussion/Palpation: abdomen soft; abdomen nontender Skin: no rashes, warm and dry Neurologic: no focal motor deficits Psychiatric: A+Ox3, euthymic affect Results & Data Results & Data Vital Signs (Past 12 Hours) Vital Signs Temp Pulse Resp BP Pulse Ox O2 Del Method 10/07/22 14:38 36.6 C 80 16 107/66 93 Room Air 10/07/22 06:45 36.6 C 83 18 111/67 94 Room Air Laboratory Results Short CBC 10/06/22 10/07/22 Range/Units 18:28 06:27 WBC 8.55 7.64 (4.8-10.8) K/ul Hgb 11.1 L 10.5 L (12.0-16.0) g/dl Hct 34.3 L 32.8 L (37.0-47.0) % Plt Count 209 188 (130-400) K/uL BMP 10/06/22 10/07/22 18:28 06:27 Sodium 139 141 Potassium 3.2 L 3.6 Chloride 103 110 H Carbon Dioxide 28 26 BUN 22 17 Creatinine 1.42 H 0.98 D Glucose 106 H 94 Calcium 10.2 9.4 Liver Function 10/06/22 Range/Units 18:28 Total Bilirubin 0.4 (0.2-1.0) mg/dl AST 8 L (13-39) U/L ALT 7 (7-52) U/L Alkaline Phosphatase 65 (34-104) U/L Albumin 3.8 (3.4-5.0) gm/dl Urine 10/06/22 Range/Units 20:16 Urine Color Yellow Urine Appearance Cloudy A (Clear) Urine pH 6.0 (4.5-7.5) Ur Specific [place] 1.012 (1.000-1.030) Urine Protein Negative (Negative) Urine Glucose (UA) Negative (Negative) Diagnostic Findings Chest X-Ray 10/06/22 17:54 XR chest 1V portable CLINICAL HISTORY: weakness TECHNIQUE: Single frontal radiograph of the chest was obtained. Comparison: Comparison is made to rib series 10/24/2021 FINDINGS: No lines and tubes are seen. Cardiomegaly is noted. The aortic arch is calcified. The lungs are clear. No evidence of pleural effusion or pneumothorax. IMPRESSION: No acute chest disease. ACT 112: Negative or not required by law. Electronically signed by: Elliott Hansen M.D. 10/06/2022 6:[address] 10/06/22 18:02 CT head/brain wo con CLINICAL HISTORY: weakness Technique: Contiguous axial CT images of the head were acquired from the base of the skull to the vertex without intravenous contrast administration. Images were viewed in brain, subdural and bone windows. Automated dose lowering techniques and/or adjustment according to patient size were utilized for this exam. Comparison: Comparison is made to CT head 05/29/2021 Findings: Areas of decreased attenuation are present in the periventricular and subcortical white matter bilaterally consistent with small vessel ischemic disease. Generalized cerebral atrophy with commensurate enlargement of the ventricles, sulci, and cisterns is also present. There is no acute intracranial hemorrhage or evidence of acute territorial infarction. No shift of the midline structures, mass effect, or extra-axial abnormalities are shown. Atherosclerotic calcifications are present in the intracranial segments of the internal carotid arteries. Imaged portions of the paranasal sinuses and mastoid air cells are clear. The orbits appear normal. There are no acute fractures of the calvaria or scalp swelling. Impression: No acute intracranial hemorrhage, no evidence of acute territorial infarction or other acute intracranial disease process. ACT 112: Negative or not required by law. Electronically signed by: Elliott Hansen M.D. 10/06/2022 7:07 PM
--- NOTE | 2022-10-07 19:37 | Urology Consultation ---
Date of Consultation October 07, 2022 Assessment & Plan (1) Renal mass, left: The patient has been admitted on the hospitalist service. She is currently being treated for urinary tract infection with antibiotics in form of aztreonam. Appropriate cultures have been sent and should be followed with antibiotics to be tailored based on these results. Concerning patient's left renal mass the patient believes this is followed by one of her outpatient physicians within the [facility] system. She is unsure if it is a urologist. Would recommend ascertaining who within the [facility] system follows patient's renal mass. If she is followed by [facility] urology she can maintain outpatient follow-up with these physicians. The patient desires further evaluation by [facility] physician group urology additional recommendations will be made but can likely be pursued on an outpatient basis. History of Present Illness Reason for Consultation: Renal mass Attending Physician: Lila Davison DO History of Present Illness This is an 87-year-old female who was admitted [facility] on 10/06/2022 secondary to worsening weakness over the past few days prior to admission. Patient denied any fevers, shakes, or chills. She denies any dysuria. She denies any back or flank pain. The patient does note that she is a previous smoker. Since admission to hospital the patient has had labs and imaging which independent reviewed. A CT scan of the head showed no acute intracranial hemorrhage or acute strokes. A chest x-ray showed no evidence of pneumonia. Labs today include a CBC were white blood cell count platelet count were normal. Her hemoglobin and hematocrit were 10.5 and 32.8. Chemistry profile showed sodium and potassium along with her BUN and creatinine were within normal range. Urinalysis did show 3+ leukocyte Estrace and pyuria with greater than 30 white blood cells per high-power field and 1+ bacteria. The specimen was negative for nitrites. Urology was asked to see the patient secondary to history of a renal mass. Patient's previous imaging was reviewed and she did have a CT scan on 10/24/2021 which showed the patient had a 2.9 x 3.1 x 2.8 cm enhancing lesion in the upper pole of the left kidney. This was concerning for renal cell carcinoma. No additional imaging on the [facility] system was available. Concerning the patient's renal mass the patient says that she believes she was aware that she had a kidney mass and she says that this is followed by one of her outpatient physicians. She is unsure of the physician's name but feels that the office is located in the [facility] system over in the [facility]. Allergies Allergy/AdvReac Type Severity Reaction Status Date / Time ceftriaxone Allergy Intermediate hives Verified 10/06/22 20:25 Iodinated Contrast Media Allergy Intermediate pruritus Verified 10/06/22 20:25 (feet) Penicillins Allergy Intermediate hives Verified 10/06/22 20:25 cisapride AdvReac Intermediate GI symptoms Verified 10/06/22 20:25 solifenacin AdvReac Intermediate blurred Verified 10/06/22 20:25 vision Home Medications Medication Instructions Recorded Confirmed Type Prevagen 1 tab PO DAILY 10/06/22 10/06/22 History cyanocobalamin (vitamin B-12) 1,000 mcg PO DAILY 10/06/22 10/06/22 History 1,000 mcg tablet (Vitamin B-12) donepezil 5 mg tablet 5 mg PO DAILY 10/06/22 10/06/22 History lamotrigine 25 mg tablet 25 mg PO QAM 10/06/22 10/06/22 History loratadine-pseudoephedrine ER 10 1 tab PO DAILY PRN ALLERGIES 10/06/22 10/06/22 History mg-240 mg tablet,extended [id number] (Claritin-D 24 Hour) mirabegron 50 mg tablet,extended 50 mg PO QAM 10/06/22 10/06/22 History release 24 hr (Myrbetriq) multivitamin 1 tab PO DAILY 10/06/22 10/06/22 History risperidone 0.5 mg tablet 0.5 mg PO BID 10/06/22 10/06/22 History sertraline 50 mg tablet 75 mg PO QAM 10/06/22 10/06/22 History tramadol 50 mg tablet 50 mg PO Q8 PRN Pain 10/06/22 10/06/22 History triamterene 37.5 1 tab PO QAM 10/06/22 10/06/22 History mg-hydrochlorothiazide 25 mg tablet Patient History Medical History Bipolar disorder Chronic back pain CKD (chronic kidney disease) stage 3, GFR 30-59 ml/min Degenerative disc disease Depression GERD (gastroesophageal reflux disease) Hyperlipidemia Hypertension OAB (overactive bladder) s/p nerve stimulator Osteoarthritis Surgical History H/O bladder repair surgery "vaginal sling procedure for stress incontinence 11/2006 " H/O vaginal hysterectomy History of appendectomy History of arthroplasty of left knee History of arthroplasty of right knee History of carpal tunnel surgery "Right" History of tonsillectomy and adenoidectomy Family History Father Family hx of colon cancer Brother Family history of diabetes mellitus Sister Family history of diabetes mellitus Social History Smoking Status: Current every day smoker Tobacco Type: Cigarettes Cigarettes Per Day: 7-9; Second Hand Exposure: No; Do You Dip or Chew Tobacco: No; Tobacco Cessation Education Requested by Patient: No Hx Alcohol Use: No Hx Substance Use: No Preferred Language: Yakut Communication Ability: Effective Parakeet Raiser Required: No Beliefs That Will Affect Care: None marital status: Current Living Situation: Spouse Other Information That Helps Us Care for You: No Feels Safe at Home: Yes Safety Concerns: Feels Safe At This Time Assistive Devices: Cane and Walker Review of Systems Constitutional: + fatigue; no fever and no chills Ear, Nose, Mouth, Throat: no hearing loss Respiratory: no dyspnea Cardiovascular: no chest pain Gastrointestinal: no abdominal pain Genitourinary: no dysuria and no flank pain Musculoskeletal: no back pain Integumentary: no rash Neurologic: + generalized weakness Physical Exam Constitutional: WD/WN, vitals as above Eyes: no conjunctival abnormality ENMT: Ears: no hearing impairment Neck: trachea midline Respiratory: normal respiratory effort; no respiratory distress and no labored breathing No wheezing Cardiovascular: Rate/Rhythm: regular rate and regular rhythm Gastrointestinal (Abdomen): Soft and nontender Musculoskeletal: No calf tenderness Skin: no rashes Neurologic: moves all extremities Psychiatric: A+Ox3, euthymic affect Genitourinary: No CVA tenderness with percussion bilaterally Results & Data Vital Signs (Past 12 Hours) Vital Signs Temp Pulse Resp BP Pulse Ox O2 Del Method 10/07/22 15:49 118/71 10/07/22 14:38 36.6 C 80 16 107/66 93 Room Air PG Care Time/CCT Total # of Minutes Spent Total Time Spent with Patient: Total time spent is greater than 50% in coordination of care (as documented) at patient's floor/unit and/or counseling patient: Coding Level of Care Code 36085 INT INP/OBS CARE 3/75MIN Diagnoses Renal mass, left N28.89
[2022-10-08] MEDS: HEPARIN SOD 5,000 UNIT/0.5 ML VIAL SQ SCH ×3 (05:05→21:10)
[2022-10-08] MEDS: lamoTRIgine 25 MG TAB PO SCH (08:18)
[2022-10-08] MEDS: MULTIVITAMIN TAB PO SCH (08:18)
[2022-10-08] MEDS: risperiDONE 0.5 MG TABLET PO SCH ×2 (08:18→21:10)
[2022-10-08] MEDS: VIBEGRON 75 MG TAB PO SCH (08:19)
[2022-10-08] MEDS: FOLIC ACID 1 MG TAB PO SCH ×2 (08:19→08:20)
[2022-10-08] MEDS: DONEPEZIL HCL 5 MG TAB PO SCH (08:19)
[2022-10-08] MEDS: CYANOCOBALAMIN (B-12) 500 MCG TABLET PO SCH (08:19)
[2022-10-08] MEDS: SERTRALINE HCL 50 MG TABLET PO SCH (08:19)
[2022-10-08] MEDS: AZTREONAM 2,000 MG in DEXTROSE 5% 100 ML IV SCH ×2 (08:22→17:25)
[2022-10-08 08:23] LABS: Hematocrit (blood only) 32.9 % (37.0-47.0); Hemoglobin 10.4 g/dl (12.0-16.0); Mean Corpuscular Hemoglobin 31.6 pg (25.0-34.0); Mean Corpuscular Hgb Conc 31.6 g/dL (32.0-36.0); Mean Platelet Volume 10.2 fL (9.4-12.4); Platelet Count 176 K/uL (130-400); RDW Coefficient of Variation 15.8 % (11.5-14.5); RDW Standard Deviation 57.5 fL (36.4-46.3); Red Blood Count 3.29 M/uL (4.20-5.40); White Blood Count 6.54 K/ul (4.8-10.8)
[2022-10-08 08:31] LABS: BUN Creatinine Ratio 18.6 (10-20); Calcium 9.5 mg/dl (8.6-10.3); Creatinine Clr Calc Pharmacy 43.5 ml/min; Est GFR (African American) 57.7 ml/min; Est GFR (Non-African American) 49.8 ml/min; Potassium 3.7 mmol/L (3.5-5.1)
--- NOTE | 2022-10-08 10:16 | Student Report ---
[facility] Med Student Progress Note Advanced Practice Practitioner Student Attestation: Not to be used for clinical decision making or plan of care formulation. Date of Service Date of service: October 08, 2022 Subjective Subjective: NAEO. Pt resting in bed this morning. Offers no complaints this morning, is anxious to be able to go home. Pt denies pain, fever, chills, LAZO, CP, SOB, N/V/D. Reported a bowel movement this morning and is making urine. States that she feels much stronger than when she came to the ED. Conts OOB with assistance including walker. ROS ROS: See above for pertinent positives & negatives. A total of 10 systems reviewed and were otherwise negative. Physical Exam Physical Exam: Vital signs reviewed. General: Well-appearing, in no significant distress. Converses easily and appropriately. HEENT: No scleral icterus, PERRLA, neck supple. Atraumatic. Cardiovascular: Regular rate and rhythm, no extra sounds. Pulmonary: Clear to auscultation bilaterally, normal work of breathing. Abdomen: Soft, nontender, nondistended, positive bowel sounds. Musculoskeletal: Atraumatic, no peripheral edema. Neurologic: Patient awake alert and oriented x 3, +4 strength in all 4 extremities. Skin: Warm, dry, no rash, small bruises noted on BUE r/t needle sticks. Results Results: Vital Signs Temp 36.5 C 10/08/22 07:28 Pulse 75 10/08/22 07:28 Resp 16 10/08/22 07:28 BP 123/78 10/08/22 07:36 Pulse Ox 94 10/08/22 07:36 O2 Del Method Room Air 10/08/22 07:36 Intake & Output 10/07/22 10/08/22 10/08/22 18:59 06:59 18:59 Intake Total 1420 / 1530 110 / 1530 110.000 / 110.000 Output Total 400 / 400 Balance 1020 / 1130 110 / 1130 110.000 / 110.000 Intake: IV 1220 / 1330 110 / 1330 110.000 / 110.000 Aztreonam 2,000 mg In Dextrose 220 / 330 110 / 330 110.000 / 110.000 5% 100 ml @ 110 mls/hr IV Q8H [facility] Rx#:[id number] Nss + 20Meq KCl 20 meq In 1,000 1000 / 1000 ml @ 75 mls/hr IV .[id number] ONE Rx#:[id number] Oral 200 / 200 Output: Urine 400 / 400 Other: # Unmeasured Voids 1 1 1 Short CBC 10/08/22 Range/Units 07:40 WBC 6.54 (4.8-10.8) K/ul Hgb 10.4 L (12.0-16.0) g/dl Hct 32.9 L (37.0-47.0) % Plt Count 176 (130-400) K/uL BMP 10/08/22 07:40 Sodium 140 Potassium 3.7 Chloride 110 H Carbon Dioxide 25 BUN 19 Creatinine 1.02 Glucose 93 Calcium 9.5 A&P A&P: 1. UTI w/out sepsis causing ambulatory dysfunction/weakness Aztreonam given and ED, now continues. UA culture shows 3 types of organisms most likely all skin elieser Pt does not require outpatient antibiotics Daily CBC, BMP, Mag 2. Anemia, heme positive stool on admission. Last colonoscopy in 2020, no acute or chronic processes found on exam. Pt without overt s/s bleeding at this time. H&H stable 10.4/32.9. Vit B12 level 734, Folate 3.71. Iron studies WNL. Continue cyanocobalamin and folic acid Monitor labs 3. LAUREANO on CKD Dehydration, hypokalemia, resolved. LAUREANO resolved, creat 1.02. Baseline approx 1.2. Of note, pt has 3.1cm lesion on upper left kidney, appearance typical for renal cell carcinoma from CT scan 09/2021 and repeat unchanged in size from 02/2022. Labs as above Avoid nephrotoxic medications Urology consulted, recommend that patient follows up as outpatient. 4. COPD CXR negative on admission. Does not have home medication regimen. 5. HTN, HLD Last LDL 2020 was 76 Pt takes triamterene-HCTZ at home, holding for now Does not take a statin. 6. Overactive bladder Pt takes mirabegron at home, ordered vibegron inpatient Has implanted nerve stimulator 7. Depression/Dementia/Bipolar Continue donepezil, lamotrigine, risperidone, sertraline 8. Osteoarthritis/DDD Acetaminophen for mild-mod pain Tramadol PRN for moderate-severe pain 9. DVT prophylaxis Heparin 5000units, every 8hrs 10. Disposition Remains under hospitalist service. May be ready for discharge later today.
--- NOTE | 2022-10-08 15:02 | Urology Progress Note ---
Date of Service October 08, 2022 Assessment & Plan (1) Renal mass, left: (2) Acute UTI: Plan: Follow-up left renal mass, acute UTI Patient afebrile with stable vitals Labscreatinine 1.02, no leukocytosis Final urine culture showed three types of organisms present, all high counts probable skin elieser Can deescalate antibiotics and transition to PO antibiotics Recommend outpatient follow-up with urology for left renal mass Currently follows with urogyn at [facility] She can establish with [facility] urology for renal mass or follow-up with our service will sign off, contact our service with any additional questions Admission and Anticipated Discharge Date Admission Date: October 06, 2022 Subjective Patient seen and examined at bedside this afternoon, chart reviewed Patient reports feeling much improved Denies bladder or flank discomfort Voiding spontaneously, no dysuria or hematuria Denies nausea, vomiting, fever or chills Review of Systems Constitutional: as per Subjective / HPI Gastrointestinal: as per Subjective / HPI Genitourinary: as per Subjective / HPI Physical Exam Physical Exam: General: well-appearing, no acute distress HEENT: Normocephalic Pulmonary: Nonlabored respirations Abdomen: Nondistended Extremities: Moves all 4 spontaneously Neuro: No gross deficits Psych: alert and oriented, normal mood Skin: Warm, dry, no rashes noted Results & Data Vital Signs (Past 12 Hours) Vital Signs Temp Pulse Resp BP Pulse Ox O2 Del Method 10/08/22 14:48 37.0 C 84 17 124/84 94 Room Air 10/08/22 07:36 123/78 94 Room Air 10/08/22 07:28 36.5 C 75 16 94/59 L 90 Room Air 10/08/22 07:09 Room Air PG Care Time/CCT Total # of Minutes Spent Total Time Spent with Patient: Total time spent is greater than 50% in coordination of care (as documented) at patient's floor/unit and/or counseling patient: Coding Level of Care Code 36387 SUB INP/OBS CARE 25MIN Diagnoses Renal mass, left N28.89 Acute UTI N39.0
--- NOTE | 2022-10-08 17:36 | Hospitalist Progress Note ---
Date of Service October 08, 2022 Assessment & Plan (1) Weakness: (2) Acute UTI: Plan: Admit to med/surg Patient presenting from home with generalized weakness. UA suggestive of UTI and started on aztreonam (due to PCN allergy) however urine culture showing skin elieser, will d/c antibiotics Generalized weakness likely due to mild dehydration. Daughter states the patient keeps her home very warm and is also on a mild diuretic. Patient improved with IVF and holding triamterene/HCTZ. PT/OT recommending d/c home with home PT (3) LAUREANO (acute kidney injury): Plan: baseline creat ~ 1.1 Creat 1.4 on admission, improved to 0.9 with IVF. Creatinine 1.0 today. Continue to monitor renal functions (4) Heme positive stool: (5) Anemia: Plan: hgb 11.1 -> 10.5 -> 10.4, hgb 13.9 03/2022 on outpatient labs ? due to underlying renal mass Stool also heme positive however no signs of gross bleeding. Consider outpatient colonoscopy. colonoscopy 10/2020 - Diverticulosis in the sigmoid colon, The examination was otherwise normal on direct and retroflexion views. Folate mildly low 3.7, will start replacement, otherwise anemia panel unremarkable (6) Renal mass, left: Plan: Kidney CT 02/2022 - 2.8 x 2.6 cm enhancing mass upper pole of the left kidney, most compatible with renal cell carcinoma Follows with [facility] for OAB, discussed with Dr. Misha Louis, recommends patient follow-up with general urology. Patient scheduled with Dr. Nolberto Osorio 11/08, request made for earlier appointment. Will need close outpatient follow up (7) CKD (chronic kidney disease) stage 3, GFR 30-59 ml/min: (8) OAB (overactive bladder): Plan: s/p nerve stimulator (9) Bipolar disorder: (10) Depression: Plan: stable, continue home meds DVT PROPHYLAXIS SQ Heparin Patient seen in collaboration with Dr. Davison. Dispo-patient medically stable for discharge however ride unavailable tonight, will plan on discharge tomorrow Admission and Anticipated Discharge Date Admission Date: October 06, 2022 Supervising Physician Co-Signing Physician Notes I have seen and examined the patient and have discussed the case with the provider above. I agree with the assessment and plan as stated. Weakness present on admission has resolved. LAUREANO resolved. Anemia may be multifactorial, including from this possible renal cell carcinoma present on scans since last year. Close follow-up with Urology as noted above strongly advised. Medically stable for discharge when ride is available. Saman, DO Subjective Follow up for generalized weakness, possible UTI. Patient seen and examined. Offers no complaints, eager to be discharged. Reports feeling much improved. Evaluated by PT, recommending discharge home. Denies chest pain shortness of breath. No abdominal pain or nausea. Physical Exam Constitutional: WD/WN, vitals as above no acute distress Respiratory: normal respiratory effort, lungs clear to auscultation Cardiovascular: Rate/Rhythm: regular rate and regular rhythm Vessels: normal peripheral pulses Extremities: no edema Gastrointestinal (Abdomen): Percussion/Palpation: abdomen soft; abdomen nontender Skin: no rashes, warm and dry Neurologic: no focal motor deficits Psychiatric: A+Ox3, euthymic affect Results & Data Results & Data Vital Signs (Past 12 Hours) Vital Signs Temp Pulse Resp BP Pulse Ox O2 Del Method 10/08/22 14:48 37.0 C 84 17 124/84 94 Room Air 10/08/22 07:36 123/78 94 Room Air 10/08/22 07:28 36.5 C 75 16 94/59 L 90 Room Air 10/08/22 07:09 Room Air Laboratory Results Short CBC 10/08/22 Range/Units 07:40 WBC 6.54 (4.8-10.8) K/ul Hgb 10.4 L (12.0-16.0) g/dl Hct 32.9 L (37.0-47.0) % Plt Count 176 (130-400) K/uL BMP 10/08/22 07:40 Sodium 140 Potassium 3.7 Chloride 110 H Carbon Dioxide 25 BUN 19 Creatinine 1.02 Glucose 93 Calcium 9.5
[2022-10-09] MEDS: HEPARIN SOD 5,000 UNIT/0.5 ML VIAL SQ SCH (05:26)
[2022-10-09] MEDS: CYANOCOBALAMIN (B-12) 500 MCG TABLET PO SCH (08:31)
[2022-10-09] MEDS: DONEPEZIL HCL 5 MG TAB PO SCH (08:32)
[2022-10-09] MEDS: FOLIC ACID 1 MG TAB PO SCH (08:32)
[2022-10-09] MEDS: MULTIVITAMIN TAB PO SCH (08:33)
[2022-10-09] MEDS: lamoTRIgine 25 MG TAB PO SCH (08:33)
[2022-10-09] MEDS: risperiDONE 0.5 MG TABLET PO SCH (08:34)
[2022-10-09] MEDS: SERTRALINE HCL 50 MG TABLET PO SCH (08:34)
[2022-10-09] MEDS: VIBEGRON 75 MG TAB PO SCH (08:35)
--- NOTE | 2022-10-10 07:54 | Discharge Summary ---
Date of Service October 09, 2022 Admission HPI Per Admitting Provider History obtained from patient, family, and records. Medical history significant for hypertension, hyperlipidemia, PVD, COPD, pulmonary hypertension, GERD, gastroparesis, CRI baseline creatinine 1.1), left renal mass possible malignancy, mood disorder, dementia as per records, ongoing tobacco abuse. Last confinement 2018 under orthopedic spine service for lumbar decompression surgery. Patient noted to have increasing weakness over the last few days. Usual back pain complaints. Patient denies headache, chest pain, SOB. Denies abdominal pain, black/bloody stools. No fever, no chills, denies dysuria symptoms. Appetite not the best. Patient brought to the ER by family. 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 [employer] Admission Exam Per Admitting Provider Physical Exam: GENERAL: Comfortable, pleasant, slightly hard of hearing, no respiratory distress SKIN: Pallor, warm HEENT: Pale palpebral conjunctivae, no ptosis, dry buccal mucosa NECK : Supple, no tenderness CHEST : Decreased breath sounds, no tenderness HEART : RRR, no obvious murmurs ABDOMEN: Some distention, nontender RECTAL : Refused EXTREMITIES : Minimal LE swelling, no LE tenderness, no other conspicuous deformities noted NEUROLOGIC : Coherent, no facial asymmetry, slightly hard of hearing, gait and stance not assessed Principal Diagnosis Generalized Weakness Dehydration Discharge Exam She remains stable has weakness but no other significant symptoms Constitutional well developed, well nourished and average body habitus Eyes PERRL, conjunctivae normal, anicteric sclerae ENMT external ear and nose normal, oropharynx normal Neck trachea midline, no thyromegaly Respiratory no respiratory distress Auscultation: lungs clear to auscultation bilaterally Cardiovascular Rate/Rhythm: regular rate and regular rhythm; not tachycardic Heart Sounds: normal S1, normal S2 and + murmur Extremities: + edema (Trace edema bilaterally) Gastrointestinal (Abdomen) Inspection/Auscultation: normal bowel sounds; abdomen not distended Percussion/Palpation: abdomen nontender Musculoskeletal No acute arthritis involving any joint Neurologic Alert and awake Discharge Data Allergies Allergy/AdvReac Type Severity Reaction Status Date / Time ceftriaxone Allergy Intermediate hives Verified 10/06/22 20:25 Iodinated Contrast Media Allergy Intermediate pruritus Verified 10/06/22 20:25 (feet) Penicillins Allergy Intermediate hives Verified 10/06/22 20:25 cisapride AdvReac Intermediate GI symptoms Verified 10/06/22 20:25 solifenacin AdvReac Intermediate blurred Verified 10/06/22 20:25 vision Consultations 10/06/22 21:14 ED Decision to Admit Stat 10/07/22 17:57 Consult Urology Routine Ordered Studies 10/06/22 18:02 CT head/brain wo con Stat Hospital Course (1) Weakness: (2) Acute UTI: Admit to med/surg Patient presenting from home with generalized weakness. UA suggestive of UTI and started on aztreonam (due to PCN allergy) however urine culture showing skin elieser, will d/c antibiotics Generalized weakness likely due to mild dehydration. Daughter states the patient keeps her home very warm and is also on a mild diuretic. Patient improved with IVF and holding triamterene/HCTZ. PT/OT recommending d/c home with home PT Remains stable without any acute symptoms Will be discharged this morning (3) LAUREANO (acute kidney injury): baseline creat ~ 1.1 Creat 1.4 on admission, improved to 0.9 with IVF. Creatinine 1.0 today. Continue to monitor renal functions Kidney function improved to normal at (4) Heme positive stool: (5) Anemia: hgb 11.1 -> 10.5 -> 10.4, hgb 13.9 03/2022 on outpatient labs ? due to underlying renal mass Stool also heme positive however no signs of gross bleeding. Consider outpatient colonoscopy. colonoscopy 10/2020 - Diverticulosis in the sigmoid colon, The examination was otherwise normal on direct and retroflexion views. Folate mildly low 3.7, will start replacement, otherwise anemia panel unremarkable Hemoglobin remains stable at 10.4 (6) Renal mass, left: Kidney CT 02/2022 - 2.8 x 2.6 cm enhancing mass upper pole of the left kidney, most compatible with renal cell carcinoma Follows with uro-ethanol operator for OAB, discussed with Dr. Misha Louis, recommends patient follow-up with general urology. Patient scheduled with Dr. Nolberto Osorio 11/08, request made for earlier appointment. Will need close outpatient follow up through PCP (7) CKD (chronic kidney disease) stage 3, GFR 30-59 ml/min: (8) OAB (overactive bladder): s/p nerve stimulator (9) Bipolar disorder: (10) Depression: stable, continue home meds DVT PROPHYLAXIS SQ Heparin Patient seen in collaboration with Dr. Davison. Dispo-patient medically stable for discharge however ride unavailable tonight, will plan on discharge tomorrow Total Time Total Time Spent Total Time Spent (In Minutes): 35 minutes Discharge Plan Discharge Items Patient Disposition: Home - Home Health Services Reason For Visit: Weakness Discharge Diagnosis: Generalized Weakness Dehydration Condition on Discharge: Good Activity: Resume your previous activity Non-emergency contact: Primary Care Provider Call non-emergency contact if: you have any medication questions, your symptoms worsen, your pain is not controlled and you have a fever Follow-up/Referrals: Nolberto Osorio MD [Outside Practitioners] - 11/08/22 10:45 am (*Dr Osorio's office may contact you for a closer appointment.* Date & Time 11/08/2022 10:45 AM Provider Nolberto Osorio MD Department Urology [facility] ) Devi Luna DO [Primary Care Provider] - 10/14/22 11:20 am (Date & Time 10/14/2022 11:20 AM Provider Curt Alanis MD Department Family Medicine [facility] ) Shyla Coulter PA-C [Physician Turpentine Farmer] - 11/04/22 1:35 pm (Date & Time 11/04/2022 1:35 PM Provider Shyla Coulter PA-C Department Urogynecology [facility] ) Diet: Heart Healthy Add Attending Provider Instructions: You came to the hospital for evaluation of weakness. This was likely due to dehydration. Keep up with your fluid intake at home. Your blood pressure was a little low while in the hospital and your blood pressure medicine (triamterene/HCTZ) was held. To prevent additional episodes of dehydration, continue to hold this medication until you follow-up with your PCP. You were found to have mildly low blood counts (anemia). You will need to follow up with your PCP to monitor this. Your folic acid levels were mildly low and you were started on supplement. You will need to follow up with urology (Dr. Osorio) regarding a mass on your left kidney. To help with your recover, home physical therapy is being arranged for you. It was a pleasure taking care of you. If you need to reach a member of the [facility] hospitalist team at [facility], please call [phone]. JOSH Sotomayor Pending Studies at Discharge: No Stand-Alone Forms: My [facility] Health, Smoking Cessation Medications and DC Order Prescriptions: New folic acid 1 mg Tablet 1 mg PO QAM Qty: 30 0RF Continued multivitamin Tablet 1 tab PO DAILY donepezil 5 mg tablet 5 mg PO DAILY cyanocobalamin (vitamin B-12) [Vitamin B-12] 1,000 mcg Tablet 1,000 mcg PO DAILY tramadol 50 mg tablet 50 mg PO Q8 PRN (Reason: Pain) lamotrigine 25 mg tablet 25 mg PO QAM Claritin-D 24 Hour 10-240 mg Tablet Extended Release 24 Hr 1 tab PO DAILY PRN (Reason: ALLERGIES) sertraline 50 mg tablet 75 mg PO QAM Myrbetriq 50 mg tablet extended release 24 hr 50 mg PO QAM risperidone 0.5 mg tablet 0.5 mg PO BID Prevagen 1 tab PO DAILY Discontinued triamterene-hydrochlorothiazid 37.5-25 mg tablet 1 tab PO QAM Discharge Orders: Discharge Order (Routine); Ordered 10/08/22 Ordered By: Lila Hinds/Other Patient Handouts: UTIs Understanding, Dehydration Admission Data Admit Date/Time: 10/06/22 23:14 Attending Provider: Eulalia Ramirez Admit Provider: Papo Hummel Primary Care Provider: Devi Luna Other Providers: Papo Hummel ; Mickey Billy ; Tan Hu [facility] ; Lila Davison Other Interventions: Discharge Summary Assessment (RN) Last Done: 10/09/22 09:56
== END 2022-10-09 10:30 | disposition home or self-care (01) | DRG 641 ==
LOC: ED 17:43 → SUATTDRO 23:14 → 3W 23:14

== ENCOUNTER 2022-11-19 15:39 | Inpatient (IN) ==
[2022-11-19] MEDS ORDERED: SODIUM CHLORIDE 0.9% 1,000 ML IV SCH (16:00)
[2022-11-19 17:05] LABS: Base Excess VBG 5.3 mEq/L; HCO3 VBG 31 mmol/L; Oxygen Saturation VBG 80.4 %; PCO2 VBG 46 mmHg (38-50); PO2 VBG 49 mmHg; pH VBG 7.43 (7.36-7.41)
[2022-11-19 17:09] LABS: Basophils # (auto) 0.03 K/uL (0.00-0.20); Basophils % (auto) 0.2 %; Eosinophils # (auto) 0.46 K/uL (0.00-0.50); Eosinophils % (auto) 3.6 %; Hematocrit (blood only) 34.9 % (37.0-47.0); Hemoglobin 11.1 g/dl (12.0-16.0); Immature Granulocytes # (auto) 0.05 K/uL (0.01-0.20); Immature Granulocytes % (auto) 0.4 %; Lymphocytes # (auto) 1.23 K/uL (1.20-3.40); Lymphocytes % (auto) 9.7 %; Mean Corpuscular Hgb Conc 31.8 g/dL (32.0-36.0); Mean Corpuscular Volume 97.5 fL (80.0-100.0); Mean Platelet Volume 10.2 fL (9.4-12.4); Monocytes # (auto) 0.84 K/uL (0.11-0.59); Monocytes % (auto) 6.6 %; Neutrophils # (auto) 10.07 K/uL (1.40-6.50); Neutrophils % (auto) 79.5 %; Platelet Count 257 K/uL (130-400); RDW Coefficient of Variation 16.7 % (11.5-14.5); Red Blood Count 3.58 M/uL (4.20-5.40); White Blood Count 12.68 K/ul (4.8-10.8)
[2022-11-19 17:17] LABS: Influenza A virus by PCR Negative (Neg); Influenza B virus by PCR Negative (Neg); RSV by PCR Negative (Neg); SARS CoV2 RNA(COVID-19) Ceph NEGATIVE (Negative)
[2022-11-19 17:27] LABS: Albumin Level 3.8 gm/dl (3.4-5.0); BUN Creatinine Ratio 26.7 (10-20); Bilirubin Direct 0.1 mg/dl (0-0.2); Bilirubin,Total 0.4 mg/dl (0.2-1.0); Calcium 10.4 mg/dl (8.6-10.3); Creatinine Clr Calc Pharmacy 38.9 ml/min; Est GFR (African American) 58.4 ml/min; Est GFR (Non-African American) 50.4 ml/min; Magnesium 2.4 mg/dl (1.7-2.4); Potassium 3.4 mmol/L (3.5-5.1); Total Protein 6.9 gm/dl (6.0-8.3)
--- NOTE | 2022-11-19 17:31 | CT Scan Report ---
CT OF THE HEAD WITHOUT CONTRAST CLINICAL HISTORY: Altered mental status. COMPARISON STUDY: Head CT October 06, 2022. CT DOSE: 625.80 mGy.cm TECHNIQUE: Helical axial images of the head were obtained without IV contrast. Automated exposure con trol was utilized for the study. A dose lowering technique was utilized adhering to the principles o f ALARA. FINDINGS: No acute intracranial hemorrhage, midline shift or mass effect is present. The ventricular system is unremarkable. The basal cisterns are patent. No extra-axial collections are present. There are no findings to suggest acute dural sinus thrombosis or acute territorial infarct. Several old inf arcts are again noted, including infarcts within the left basal ganglia and bilateral cerebellar nidhi spheres. White matter hypodensities are unchanged. A 1.1 cm right parotid nodule is similar to CT of June 08, 2021. IMPRESSION: No acute intracranial findings. No change in appearance of the brain. ACT 112: Negative or not required by law. Electronically signed by: Heracloi Suarez M.D. 11/19/2022 5:29 PM
[2022-11-19 17:33] LABS: Troponin I High Sensitivity 17.3 pg/ml (0-14)
[2022-11-19 17:37] LABS: Partial Thromboplastin Time 27.5 Seconds (21.0-31.0); Prothrombin Time 10.8 Seconds (9.0-12.0)
[2022-11-19 17:46] LABS: Appearance Urine Clear (Clear); Bacteria Urine Automated 1+ (Negative); Bilirubin Urine Negative (Negative); Blood Urine Negative (Negative); Color Urine Dark Yellow; Epithelial Cell Urine Auto >30 /lpf (0-5); Glucose Urine UA Negative (Negative); Ketones Urine Negative (Negative); Leukocyte Esterase Urine 2+ (Negative); Nitrite Urine Negative (Negative); Protein Urine Negative (Negative); RBC Urine Automated 0-4 /hpf (0-4); Specific Gravity Urine 1.015 (1.000-1.030); Urobilinogen Urine Negative (Negative); pH Urine 6.5 (4.5-7.5)
--- NOTE | 2022-11-19 18:18 | XRay Report ---
XR chest 1V portable CLINICAL HISTORY: Sepsis. COMPARISON STUDY: Chest radiograph October 06, 2021. Chest CT April 17, 2021. FINDINGS: Lung volumes are normal. No pneumothorax or pleural effusion is present. Mild cardiomegaly is unchanged. There is mild interstitial thickening. There is no consolidation to suggest pneumonia. IMPRESSION: Mild cardiomegaly with interstitial thickening suggestive of mild pulmonary edema. ACT 112: Negative or not required by law. Electronically signed by: Heraclio Suarez M.D. 11/19/2022 6:17 PM
[2022-11-19] MEDS ORDERED: CIPROFLOXACIN / D5W 400 MG/200 ML BAG IV STA (18:24)
[2022-11-19] MEDS ORDERED: POTASSIUM CHLORIDE CRTAB 20 MEQ TABCR PO STA (19:33)
[2022-11-19] MEDS ORDERED: ALBUT/IPRATROP 3MG/0.5MG NEB 3 ML VIAL NEB STA (19:38)
[2022-11-19] MEDS ORDERED: FUROSEMIDE INJ 20 MG/2 ML VIAL IV ONE (20:19)
--- NOTE | 2022-11-19 20:34 | History & Physical Report ---
Date of Service November 19, 2022 Assessment & Plan (1) Hypoxia: (2) COPD exacerbation: (3) Pulmonary edema: Plan: Admit to [facility] with telemetry Patient presenting from home with reports of generalized weakness. In the ED, found to be mildly hypoxic on room air at 88%. Currently saturating well on 2 L of oxygen via nasal cannula. Noted to have wheezing on exam and CXR showing mild pulmonary edema. Due to allergy profile, will place patient empirically on aztreonam and azithromycin Influenza, COVID, RSV testing negative, will obtain bio fire Prednisone 40 mg daily x 5 days Pulmonary toilet with nebs, Mucinex, incentive sponsor, flutter valve Mildly elevated HS troponin 17.3, continue to trend, if continuing to rise, will obtain echocardiogram. EKG without acute ST changes, no reports of chest pain. Will diurese gently with Lasix 20 mg IV, monitor response Echo 04/2022 -EF 55 to 59%, mild aortic regurgitation, severe mitral calcification with moderate mitral stenosis, mild tricuspid regurgitation, mild pulmonary hypertension (4) UTI (urinary tract infection): Plan: Seen by PCP on 11/15 and empirically started on Macrobid for suspected UTI, UA not obtained, outpatient urine culture pending UA today with leukocyte esterase and bacteria however > 30 epithelial cells On aztreonam as above Follow urine culture (5) Weakness: Plan: Multifactorial due to above acute issues PT/OT evals (6) OAB (overactive bladder): Plan: Chronic, stable, s/p nerve stimulator (7) Depression: (8) Bipolar disorder: Plan: Chronic, stable Continue home meds (9) Renal mass, left: Plan: Following with urology, currently under observation DVT PROPHYLAXIS SQ Lovenox Patient seen in collaboration with Dr. Alanis. I spent a total of 75 minutes coordinating, documenting, and providing care for this patient excluding time spent in the performance of separately billed services. This included personally reviewing all current laboratories and imaging studies, medication reconciliation, outpatient chart review, and discussion with specialists. History of Present Illness Chief Complaint: Weakness Primary Care Provider: Devi Luna DO 87-year-old female with PMH COPD, PVD, HTN, mitral valve stenosis, GERD, overactive bladder s/p stimulator, left renal mass, depression, bipolar disorder, and other problems listed below who presents to the ED for evaluation of generalized weakness. History is obtained from the patient and review of outpatient PCP records. Patient states that she started to feel generally weak a few days ago. Today, she was barely able to stand. She was seen by PCP on 11/15 and reported dysuria, was started empirically on Macrobid. Urine culture is pending. Patient states improvement in dysuria since starting Macrobid. She also reports slightly worsening shortness of breath, has chronic productive cough that is unchanged from baseline. Patient reports she quit smoking 4 days ago. She denies chest pain. No fevers or chills. Denies abdominal pain, nausea, vomiting, diarrhea. In the ED, patient was mildly hypoxic on room air 88%. Currently saturating well on 2 L of oxygen. Labs show WBC 12 K, K+ 3.4, HS troponin 17.3, proBNP 156. UA suggestive of possible UTI. CXR shows mild pulmonary edema. In the ED, patient received IV Cipro and IVF. Allergies Allergy/AdvReac Type Severity Reaction Status Date / Time ceftriaxone Allergy Intermediate hives Verified 10/06/22 20:25 Iodinated Contrast Media Allergy Intermediate pruritus Verified 10/06/22 20:25 (feet) Penicillins Allergy Intermediate hives Verified 10/06/22 20:25 cisapride AdvReac Intermediate GI symptoms Verified 10/06/22 20:25 solifenacin AdvReac Intermediate blurred Verified 10/06/22 20:25 vision Home Medications Medication Instructions Recorded Confirmed Type Prevagen 1 tab PO DAILY 10/06/22 11/19/22 History cyanocobalamin (vitamin B-12) 1,000 mcg PO DAILY 10/06/22 11/19/22 History 1,000 mcg tablet (Vitamin B-12) donepezil 5 mg tablet 5 mg PO QDB 10/06/22 11/19/22 History lamotrigine 25 mg tablet 25 mg PO QAM 10/06/22 11/19/22 History loratadine-pseudoephedrine ER 10 1 tab PO DAILY PRN ALLERGIES 10/06/22 11/19/22 History mg-240 mg tablet,extended [id number] (Claritin-D 24 Hour) mirabegron 50 mg tablet,extended 50 mg PO QAM 10/06/22 11/19/22 History release 24 hr (Myrbetriq) multivitamin 1 tab PO DAILY 10/06/22 11/19/22 History risperidone 0.5 mg tablet 0.5 mg PO BID 10/06/22 11/19/22 History sertraline 50 mg tablet 75 mg PO QAM 10/06/22 11/19/22 History tramadol 50 mg tablet 50 mg PO Q8 PRN Pain 10/06/22 11/19/22 History folic acid 1 mg tablet 1 mg PO QAM #30 tabs 10/08/22 11/19/22 Rx nitrofurantoin 100 mg PO AMHS 11/19/22 11/19/22 History monohydrate/macrocrystals 100 mg capsule nystatin-triamcinolone 100,000 1 applic topical TID 11/19/22 11/19/22 History unit/g-0.1 % topical cream Past Med/Surg History Medical History Bipolar disorder Chronic back pain CKD (chronic kidney disease) stage 3, GFR 30-59 ml/min Degenerative disc disease Depression GERD (gastroesophageal reflux disease) Hyperlipidemia Hypertension OAB (overactive bladder) s/p nerve stimulator Osteoarthritis Surgical History H/O bladder repair surgery "vaginal sling procedure for stress incontinence 11/2006 " H/O vaginal hysterectomy History of appendectomy History of arthroplasty of left knee History of arthroplasty of right knee History of carpal tunnel surgery "Right" History of tonsillectomy and adenoidectomy Family History Father Family hx of colon cancer Brother Family history of diabetes mellitus Sister Family history of diabetes mellitus Social History Smoking Status: Former smoker Tobacco Type: Cigarettes Cigarettes Per Day: 7-9; Second Hand Exposure: No; Do You Dip or Chew Tobacco: No; Hx Alcohol Use: No Hx Substance Use: No Preferred Language: Tajik Communication Ability: Effective Head Stock Transfer Clerk Required: No Beliefs That Will Affect Care: None marital status: Current Living Situation: Spouse Feels Safe at Home: Yes Assistive Devices: Cane and Walker Review of Systems Review of Systems: ROS per HPI, all other systems reviewed and negative Physical Exam Physical Exam: Please refer to Dr. Alanis's addendum for physical exam. Results & Data Results & Data Vital Signs (Past 12 Hours) Vital Signs Temp Pulse Resp BP Pulse Ox O2 Del Method O2 Flow Rate 11/19/22 20:02 79 11/19/22 19:00 84 29 H 124/73 90 Room Air 11/19/22 19:05 88 L Nasal Cannula 0 11/19/22 18:30 87 31 H 149/83 H 91 Room Air 11/19/22 18:01 88 27 H 143/87 H 91 Room Air 11/19/22 17:30 82 28 H 155/77 H 90 Room Air 11/19/22 17:23 82 29 H 151/84 H 90 Room Air 11/19/22 17:04 81 26 H 91 Room Air 11/19/22 16:20 79 30 H 91 Room Air 11/19/22 16:04 80 36 H 92 Room Air 11/19/22 16:03 80 11/19/22 16:09 36.7 C 80 30 H 142/86 H 91 Room Air Laboratory Results Short CBC 11/19/22 Range/Units 16:53 WBC 12.68 H (4.8-10.8) K/ul Hgb 11.1 L (12.0-16.0) g/dl Hct 34.9 L (37.0-47.0) % Plt Count 257 (130-400) K/uL BMP 11/19/22 16:53 Sodium 139 Potassium 3.4 L Chloride 104 Carbon Dioxide 28 BUN 27 H Creatinine 1.01 Glucose 99 Calcium 10.4 H Liver Function 11/19/22 Range/Units 16:53 Total Bilirubin 0.4 (0.2-1.0) mg/dl Direct Bilirubin 0.1 (0-0.2) mg/dl AST 30 (13-39) U/L ALT 23 (7-52) U/L Alkaline Phosphatase 87 (34-104) U/L Albumin 3.8 (3.4-5.0) gm/dl Urine 11/19/22 Range/Units 17:15 Urine Color Dark Yellow Urine Appearance Clear (Clear) Urine pH 6.5 (4.5-7.5) Ur Specific [place] 1.015 (1.000-1.030) Urine Protein Negative (Negative) Urine Glucose (UA) Negative (Negative) Diagnostic Findings Chest X-Ray 11/19/22 15:49 XR chest 1V portable CLINICAL HISTORY: Sepsis. COMPARISON STUDY: Chest radiograph October 06, 2021. Chest CT April 17, 2021. FINDINGS: Lung volumes are normal. No pneumothorax or pleural effusion is present. Mild cardiomegaly is unchanged. There is mild interstitial thickening. There is no consolidation to suggest pneumonia. IMPRESSION: Mild cardiomegaly with interstitial thickening suggestive of mild pulmonary edema. ACT 112: Negative or not required by law. Electronically signed by: Heraclio Suarez M.D. 11/19/2022 6:[address] 11/19/22 15:50 CT OF THE HEAD WITHOUT CONTRAST CLINICAL HISTORY: Altered mental status. COMPARISON STUDY: Head CT October 06, 2022. CT DOSE: 625.80 mGy.cm TECHNIQUE: Helical axial images of the head were obtained without IV contrast. Automated exposure control was utilized for the study. A dose lowering technique was utilized adhering to the principles of ALARA. FINDINGS: No acute intracranial hemorrhage, midline shift or mass effect is present. The ventricular system is unremarkable. The basal cisterns are patent. No extra-axial collections are present. There are no findings to suggest acute dural sinus thrombosis or acute territorial infarct. 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 White matter hypodensities are unchanged. A 1.1 cm right parotid nodule is similar to CT of June 08, 2021. IMPRESSION: No acute intracranial findings. No change in appearance of the bra in. ACT 112: Negative or not required by law. Electronically signed by: Heraclio Suarez M.D. 11/19/2022 5:29 PM Code Status & VTE Plan VTE Prophylaxis Plan VTE Prophylaxis will be ordered: Yes Supervising Physician Co-Signing Physician Notes Pt is a 87 y/o F with hx of COPD, CKD III with anemia, renal mass, recent admission for UTI admitted for worsening ambulatory function, gen weakness and SOB PE: Mild respiratory distress, on NC 1L Lung: good air entry b/l but diffuse wheezing with possible mild crackles at the bases Cardiac: normal S1/S2, no murmur Abd: soft, NT MSK: no LE edema Psych: AAOX3, normal affect A/P: SOB: -2/2 COPD exacerbation +/- pulm edema --- per pt she is having productive cough -will get nasal swab -duonebs q4hrs, zpack and prednisone burst -wean off of oxygen as pt tolerates -CXR did show pulm edema --- upon review the CXR appeared slightly worse than previous one --- since pt will be receiving PO prednisone will do Lasix 20mg IV once UTI: -prior UCx showed E.coli that is resistant to ampicillin, Cipro and Levaquin --- pt is allergic to PCN -pt has received azactam in the past --- will start pt on azactam -UCx sent Ambulatory dysfunction: -2/2 infection + COPD exacerbation - CT head: no acute findings -PT/OT eval Elevated trop: -likely demand ischemia -EKG: No ST changes -pt had echo on 04/2022 --- normal EF but valvular calcification -will trend trop ---- if worsen then echo and cardiology consult Agree with A/P by JOSH Sotomayor
[2022-11-19] MEDS ORDERED: ACETAMINOPHEN 325 MG TAB PO PRN (21:33)
[2022-11-19] MEDS ORDERED: AZITHROMYCIN 250 MG TAB PO ONE (21:33)
[2022-11-19] MEDS ORDERED: traMADol HCL 50 MG TABLET PO PRN (21:33)
--- NOTE | 2022-11-19 21:36 | Emergency Department Note ---
History of Present Illness General Chief complaint: Weakness Stated complaint: WEAKNESS Time Seen by Provider: 11/19/22 15:41 Source: EMS History of Present Illness Provider complaint: Weakness 87-year-old female with history of dementia presents emergency department for weakness. No falls reported by EMS. No chest pain difficulty breathing nausea or vomiting. Home Medications Medication Instructions Recorded Confirmed Type Prevagen 1 tab PO DAILY 10/06/22 11/19/22 History cyanocobalamin (vitamin B-12) 1,000 mcg PO DAILY 10/06/22 11/19/22 History 1,000 mcg tablet (Vitamin B-12) donepezil 5 mg tablet 5 mg PO QDB 10/06/22 11/19/22 History lamotrigine 25 mg tablet 25 mg PO QAM 10/06/22 11/19/22 History loratadine-pseudoephedrine ER 10 1 tab PO DAILY PRN ALLERGIES 10/06/22 11/19/22 History mg-240 mg tablet,extended [id number] (Claritin-D 24 Hour) mirabegron 50 mg tablet,extended 50 mg PO QAM 10/06/22 11/19/22 History release 24 hr (Myrbetriq) multivitamin 1 tab PO DAILY 10/06/22 11/19/22 History risperidone 0.5 mg tablet 0.5 mg PO BID 10/06/22 11/19/22 History sertraline 50 mg tablet 75 mg PO QAM 10/06/22 11/19/22 History tramadol 50 mg tablet 50 mg PO Q8 PRN Pain 10/06/22 11/19/22 History folic acid 1 mg tablet 1 mg PO QAM #30 tabs 10/08/22 11/19/22 Rx nitrofurantoin 100 mg PO AMHS 11/19/22 11/19/22 History monohydrate/macrocrystals 100 mg capsule nystatin-triamcinolone 100,000 1 applic topical TID 11/19/22 11/19/22 History unit/g-0.1 % topical cream Allergies Allergy/AdvReac Type Severity Reaction Status Date / Time ceftriaxone Allergy Intermediate hives Verified 10/06/22 20:25 Iodinated Contrast Media Allergy Intermediate pruritus Verified 10/06/22 20:25 (feet) Penicillins Allergy Intermediate hives Verified 10/06/22 20:25 cisapride AdvReac Intermediate GI symptoms Verified 10/06/22 20:25 solifenacin AdvReac Intermediate blurred Verified 10/06/22 20:25 vision Past Med/Surg History Medical History Bipolar disorder Chronic back pain CKD (chronic kidney disease) stage 3, GFR 30-59 ml/min Degenerative disc disease Depression GERD (gastroesophageal reflux disease) Hyperlipidemia Hypertension OAB (overactive bladder) s/p nerve stimulator Osteoarthritis Surgical History H/O bladder repair surgery "vaginal sling procedure for stress incontinence 11/2006 " H/O vaginal hysterectomy History of appendectomy History of arthroplasty of left knee History of arthroplasty of right knee History of carpal tunnel surgery "Right" History of tonsillectomy and adenoidectomy Family History Father Family hx of colon cancer Brother Family history of diabetes mellitus Sister Family history of diabetes mellitus Social History Smoking Status: Current every day smoker Tobacco Type: Cigarettes Cigarettes Per Day: 7-9; Second Hand Exposure: No; Do You Dip or Chew Tobacco: No; Hx Alcohol Use: No Hx Substance Use: No Preferred Language: Jamaican Communication Ability: Effective 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 Hand Required: No Beliefs That Will Affect Care: None marital status: Current Living Situation: Spouse Other Information That Helps Us Care for You: No Feels Safe at Home: Yes Safety Concerns: Feels Safe At This Time Assistive Devices: Cane and Walker Physical Exam Vital Signs Vital Signs - 24 hr 11/19/22 16:09 11/19/22 16:03 11/19/22 16:04 Temperature 36.7 C Temperature Source Oral Pulse Rate 80 80 80 Respiratory Rate 30 H 36 H Blood Pressure 142/86 H Blood Pressure Mean 104 Pulse Oximetry 91 92 Oxygen Delivery Method Room Air Room Air Oxygen Flow Rate Sepsis Recent Fever Within 48 Hours No Sepsis New/Unexplained Change in Mental Status N/A Sepsis Action Taken by Nursing No Action Required Oxygen Flow Rate - Titration Pulse Oximetry Post Tiitration 11/19/22 16:20 11/19/22 17:04 11/19/22 17:23 Temperature Temperature Source Pulse Rate 79 81 82 Respiratory Rate 30 H 26 H 29 H Blood Pressure 151/84 H Blood Pressure Mean 106 Pulse Oximetry 91 91 90 Oxygen Delivery Method Room Air Room Air Room Air Oxygen Flow Rate Sepsis Recent Fever Within 48 Hours Sepsis New/Unexplained Change in Mental Status Sepsis Action Taken by Nursing Oxygen Flow Rate - Titration Pulse Oximetry Post Tiitration 11/19/22 17:30 11/19/22 18:01 11/19/22 18:30 Temperature Temperature Source Pulse Rate 82 88 87 Respiratory Rate 28 H 27 H 31 H Blood Pressure 155/77 H 143/87 H 149/83 H Blood Pressure Mean 103 105 105 Pulse Oximetry 90 91 91 Oxygen Delivery Method Room Air Room Air Room Air Oxygen Flow Rate Sepsis Recent Fever Within 48 Hours Sepsis New/Unexplained Change in Mental Status Sepsis Action Taken by Nursing Oxygen Flow Rate - Titration Pulse Oximetry Post Tiitration 11/19/22 19:05 11/19/22 19:00 11/19/22 19:30 Temperature Temperature Source Pulse Rate 84 83 Respiratory Rate 29 H 31 H Blood Pressure 124/73 123/70 Blood Pressure Mean 90 87 Pulse Oximetry 88 L 90 95 Oxygen Delivery Method Nasal Cannula Room Air Nasal Cannula Oxygen Flow Rate 0 2 Sepsis Recent Fever Within 48 Hours Sepsis New/Unexplained Change in Mental Status Sepsis Action Taken by Nursing Oxygen Flow Rate - Titration 2 Pulse Oximetry Post Tiitration 93 Physical Exam HENT: Exam performed. -Head: Normocephalic and atraumatic. -Right Ear: External ear normal. No mastoid erythema -Left Ear: External ear normal. No mastoid erythema -Mouth/Throat: The oropharynx is clear and moist. No trismus in the jaw. No dental abscesses or uvula swelling. No oropharyngeal exudate or tonsillar abscesses. EYES: Conjunctivae and EOM are normal. Pupils are equal, round, and reactive to light. Right eye exhibits no discharge. Left eye exhibits no discharge. No scleral icterus. NECK: Normal range of motion. Neck supple. CV: Normal rate, regular rhythm, normal heart sounds and intact distal pulses. There is no peripheral edema. Palpable radial pulses bue. PULM/CHEST: Effort normal and breath sounds normal. No respiratory distress. No stridor. She has no wheezes. She has no rales. ABD: The abdomen is soft.There is no tenderness. There is no rebound, no guarding NEURO: Motor and sensation grossly intact Course Course 1541: The patient was evaluated in room C1. A complete history and physical exam was performed Cardiac monitoring: An order was placed for continuous cardiac monitoring. The monitor shows a rate of 80 with sinus rhythm interpreted by or 1830: Vital signs stable. Labs show white blood cell count of 12.68. VBG within normal limits. Procalcitonin mildly elevated 0.54 troponin elevated at 17.3 urinalysis is concerning for UTI and 1+ urine. Chest x-ray shows fluid overload. Patient be treated with Cipro IV piggyback for UTI as well as Lasix for fluid overload. Discussed with family who is now at bedside and will admit the patient for IV antibiotics and diuresis. [facility] hospitalist team Lashell husain will be made aware. Administered Medications Discontinued Medications Albuterol (Albut/Ipratrop 3mg/0.5mg Neb 3 Ml Vial) 3 ml NEB NOW STA; Protocol Stop: 11/19/22 19:39 Last Admin: 11/19/22 20:27 Dose: 3 ml Documented By: LUIS FELIPE Furosemide (Furosemide Inj 20 Mg/2 Ml Vial) 20 mg IV ONE ONE Stop: 11/19/22 20:20 Last Admin: 11/19/22 21:29 Dose: 20 mg Documented By: CRISTINA Sodium Chloride (Nss) 1,000 mls @ 999 mls/hr IV .[id number] YUKI Stop: 11/19/22 17:00 Last Infusion: 11/19/22 18:37 Dose: 0 mls/hr Documented By: Admin: 11/19/22 17:10 Dose: 999 mls/hr Documented By: CRISTINA Ciprofloxacin (Cipro / D5w) 400 mg in 200 mls @ 100 mls/hr IV NOW STA; Protocol Stop: 11/19/22 20:23 Last Infusion: 11/19/22 20:47 Dose: 0 mls/hr Documented By: LUIS FELIPE Admin: 11/19/22 18:38 Dose: 100 mls/hr Documented By: CRISTINA Potassium Chloride (Potassium Chloride Crtab 20 Meq Tabcr) 40 meq PO NOW STA Stop: 11/19/22 19:34 Last Admin: 11/19/22 20:26 Dose: 40 meq Documented By: LUIS FELIPE Medical Decision Making Laboratory Data Attestation: I reviewed the patient's lab results. 11/19/22 16:53 11/19/22 16:53 Lab Results 11/19/22 11/19/22 11/19/22 Range/Units 16:18 16:53 16:53 WBC 12.68 H (4.8-10.8) K/ul RBC 3.58 L (4.20-5.40) M/uL Hgb 11.1 L (12.0-16.0) g/dl Hct 34.9 L (37.0-47.0) % MCV 97.5 (80.0-100.0) fL MCH 31.0 (25.0-34.0) pg MCHC 31.8 L (32.0-36.0) g/dL RDW Std Deviation 60.0 H (36.4-46.3) fL RDW Coeff of Ami 16.7 H (11.5-14.5) % Plt Count 257 (130-400) K/uL MPV 10.2 (9.4-12.4) fL Immature Gran % (Auto) 0.4 % Neut % (Auto) 79.5 % Lymph % (Auto) 9.7 % [place] % (Auto) 6.6 % Eos % (Auto) 3.6 % Baso % (Auto) 0.2 % Neut # (Auto) 10.07 H (1.40-6.50) K/uL Lymph # (Auto) 1.23 (1.20-3.40) K/uL [facility] # (Auto) 0.84 H (0.11-0.59) K/uL Eos # (Auto) 0.46 (0.00-0.50) K/uL Baso # (Auto) 0.03 (0.00-0.20) K/uL Immature Gran # (Auto) 0.05 (0.01-0.20) K/uL PT (9.0-12.0) Seconds INR (0.9-1.1) APTT (21.0-31.0) Seconds PTT Ratio VBG pH (7.36-7.41) VBG pCO2 (38-50) mmHg VBG pO2 mmHg VBG HCO3 mmol/L VBG O2 Saturation % VBG Base Excess mEq/L Sodium 139 (136-145) mmol/L Potassium 3.4 L (3.5-5.1) mmol/L Chloride 104 (98-107) mmol/L Carbon Dioxide 28 (21-32) mmol/L Anion Gap 7 (3-11) BUN 27 H (6-23) mg/dl Creatinine 1.01 (0.6-1.2) mg/dl Est Cr Clr Drug Dosing 38.9 ml/min Est GFR ( Amer) 58.4 ml/min Est GFR (Non-Af Amer) 50.4 ml/min BUN/Creatinine Ratio 26.7 H (10-20) Glucose 99 (70-99(Fasting)) mg/dl Lactate (0.4-2.0) mmol/L Calcium 10.4 H (8.6-10.3) mg/dl Magnesium 2.4 (1.7-2.4) mg/dl Total Bilirubin 0.4 (0.2-1.0) mg/dl Direct Bilirubin 0.1 (0-0.2) mg/dl AST 30 (13-39) U/L ALT 23 (7-52) U/L Alkaline Phosphatase 87 (34-104) U/L Troponin I High Sens 17.3 H (0-14) pg/ml B-Natriuretic Peptide (0-100) pg/ml Total Protein 6.9 (6.0-8.3) gm/dl Albumin 3.8 (3.4-5.0) gm/dl Procalcitonin (0-0.5) ng/ml Urine Color Urine Appearance (Clear) Urine pH (4.5-7.5) Ur Specific [place] (1.000-1.030) Urine Protein (Negative) Urine Glucose (UA) (Negative) Urine Ketones (Negative) Urine Blood (Negative) Urine Nitrite (Negative) Urine Bilirubin (Negative) Urine Urobilinogen (Negative) Ur Leukocyte Esterase (Negative) Urine WBC (Auto) (0-5) /hpf Urine RBC (Auto) (0-4) /hpf U Hyaline Cast (Auto) (0-5) /lpf U Epithel Cells (Auto) (0-5) /lpf Urine Bacteria (Auto) (Negative) SARS-CoV-2 (PCR) NEGATIVE (Negative) Influenza Type A (PCR) Negative (Neg) Influenza Type B (PCR) Negative (Neg) RSV (RT-PCR) Negative (Neg) 11/19/22 11/19/22 11/19/22 Range/Units 16:53 16:53 16:53 WBC (4.8-10.8) K/ul RBC (4.20-5.40) M/uL Hgb (12.0-16.0) g/dl Hct (37.0-47.0) % MCV (80.0-100.0) fL MCH (25.0-34.0) pg MCHC (32.0-36.0) g/dL RDW Std Deviation (36.4-46.3) fL RDW Coeff of Ami (11.5-14.5) % Plt Count (130-400) K/uL MPV (9.4-12.4) fL Immature Gran % (Auto) % Neut % (Auto) % Lymph % (Auto) % [facility] % (Auto) % Eos % (Auto) % Baso % (Auto) % Neut # (Auto) (1.40-6.50) K/uL Lymph # (Auto) (1.20-3.40) K/uL [facility] # (Auto) (0.11-0.59) K/uL Eos # (Auto) (0.00-0.50) K/uL Baso # (Auto) (0.00-0.20) K/uL Immature Gran # (Auto) (0.01-0.20) K/uL PT (9.0-12.0) Seconds INR (0.9-1.1) APTT (21.0-31.0) Seconds PTT Ratio VBG pH 7.43 H (7.36-7.41) VBG pCO2 46 (38-50) mmHg VBG pO2 49 mmHg VBG HCO3 31 mmol/L VBG O2 Saturation 80.4 % VBG Base Excess 5.3 mEq/L Sodium (136-145) mmol/L Potassium (3.5-5.1) mmol/L Chloride (98-107) mmol/L Carbon Dioxide (21-32) mmol/L Anion Gap (3-11) BUN (6-23) mg/dl Creatinine (0.6-1.2) mg/dl Est Cr Clr Drug Dosing ml/min Est GFR ( Amer) ml/min Est GFR (Non-Af Amer) ml/min BUN/Creatinine Ratio (10-20) Glucose (70-99(Fasting)) mg/dl Lactate 0.8 (0.4-2.0) mmol/L Calcium (8.6-10.3) mg/dl Magnesium (1.7-2.4) mg/dl Total Bilirubin (0.2-1.0) mg/dl Direct Bilirubin (0-0.2) mg/dl AST (13-39) U/L ALT (7-52) U/L Alkaline Phosphatase (34-104) U/L Troponin I High Sens (0-14) pg/ml B-Natriuretic Peptide (0-100) pg/ml Total Protein (6.0-8.3) gm/dl Albumin (3.4-5.0) gm/dl Procalcitonin 0.54 H (0-0.5) ng/ml Urine Color Urine Appearance (Clear) Urine pH (4.5-7.5) Ur Specific [place] (1.000-1.030) Urine Protein (Negative) Urine Glucose (UA) (Negative) Urine Ketones (Negative) Urine Blood (Negative) Urine Nitrite (Negative) Urine Bilirubin (Negative) Urine Urobilinogen (Negative) Ur Leukocyte Esterase (Negative) Urine WBC (Auto) (0-5) /hpf Urine RBC (Auto) (0-4) /hpf U Hyaline Cast (Auto) (0-5) /lpf U Epithel Cells (Auto) (0-5) /lpf Urine Bacteria (Auto) (Negative) SARS-CoV-2 (PCR) (Negative) Influenza Type A (PCR) (Neg) Influenza Type B (PCR) (Neg) RSV (RT-PCR) (Neg) 11/19/22 11/19/22 11/19/22 Range/Units 16:53 16:55 17:15 WBC (4.8-10.8) K/ul RBC (4.20-5.40) M/uL Hgb (12.0-16.0) g/dl Hct (37.0-47.0) % MCV (80.0-100.0) fL MCH (25.0-34.0) pg MCHC (32.0-36.0) g/dL RDW Std Deviation (36.4-46.3) fL RDW Coeff of Ami (11.5-14.5) % Plt Count (130-400) K/uL MPV (9.4-12.4) fL Immature Gran % (Auto) % Neut % (Auto) % Lymph % (Auto) % [facility] % (Auto) % Eos % (Auto) % Baso % (Auto) % Neut # (Auto) (1.40-6.50) K/uL Lymph # (Auto) (1.20-3.40) K/uL [facility] # (Auto) (0.11-0.59) K/uL Eos # (Auto) (0.00-0.50) K/uL Baso # (Auto) (0.00-0.20) K/uL Immature Gran # (Auto) (0.01-0.20) K/uL PT 10.8 (9.0-12.0) Seconds INR 1.0 (0.9-1.1) APTT 27.5 (21.0-31.0) Seconds PTT Ratio 1.0 VBG pH (7.36-7.41) VBG pCO2 (38-50) mmHg VBG pO2 mmHg VBG HCO3 mmol/L VBG O2 Saturation % VBG Base Excess mEq/L Sodium (136-145) mmol/L Potassium (3.5-5.1) mmol/L Chloride (98-107) mmol/L Carbon Dioxide (21-32) mmol/L Anion Gap (3-11) BUN (6-23) mg/dl Creatinine (0.6-1.2) mg/dl Est Cr Clr Drug Dosing ml/min Est GFR ( Amer) ml/min Est GFR (Non-Af Amer) ml/min BUN/Creatinine Ratio (10-20) Glucose (70-99(Fasting)) mg/dl Lactate (0.4-2.0) mmol/L Calcium (8.6-10.3) mg/dl Magnesium (1.7-2.4) mg/dl Total Bilirubin (0.2-1.0) mg/dl Direct Bilirubin (0-0.2) mg/dl AST (13-39) U/L ALT (7-52) U/L Alkaline Phosphatase (34-104) U/L Troponin I High Sens (0-14) pg/ml B-Natriuretic Peptide 156 H (0-100) pg/ml Total Protein (6.0-8.3) gm/dl Albumin (3.4-5.0) gm/dl Procalcitonin (0-0.5) ng/ml Urine Color Dark Yellow Urine Appearance Clear (Clear) Urine pH 6.5 (4.5-7.5) Ur Specific [place] 1.015 (1.000-1.030) Urine Protein Negative (Negative) Urine Glucose (UA) Negative (Negative) Urine Ketones Negative (Negative) Urine Blood Negative (Negative) Urine Nitrite Negative (Negative) Urine Bilirubin Negative (Negative) Urine Urobilinogen Negative (Negative) Ur Leukocyte Esterase 2+ H (Negative) Urine WBC (Auto) 10-30 H (0-5) /hpf Urine RBC (Auto) 0-4 (0-4) /hpf U Hyaline Cast (Auto) 1-5 (0-5) /lpf U Epithel Cells (Auto) >30 H (0-5) /lpf Urine Bacteria (Auto) 1+ H (Negative) SARS-CoV-2 (PCR) (Negative) Influenza Type A (PCR) (Neg) Influenza Type B (PCR) (Neg) RSV (RT-PCR) (Neg) Imaging Data Radiologist's Impression: Chest X-Ray 11/19/22 15:49 XR chest 1V portable CLINICAL HISTORY: Sepsis. COMPARISON STUDY: Chest radiograph October 06, 2021. Chest CT April 17, 2021. FINDINGS: Lung volumes are normal. No pneumothorax or pleural effusion is present. Mild cardiomegaly is unchanged. There is mild interstitial thickening. There is no consolidation to suggest pneumonia. IMPRESSION: Mild cardiomegaly with interstitial thickening suggestive of mild pulmonary edema. ACT 112: Negative or not required by law. Electronically signed by: Heraclio Suarez M.D. 11/19/2022 6:[address] 11/19/22 15:50 CT OF THE HEAD WITHOUT CONTRAST CLINICAL HISTORY: Altered mental status. COMPARISON STUDY: Head CT October 06, 2022. CT DOSE: 625.80 mGy.cm TECHNIQUE: Helical axial images of the head were obtained without IV contrast. Automated exposure control was utilized for the study. A dose lowering technique was utilized adhering to the principles of ALARA. FINDINGS: No acute intracranial hemorrhage, midline shift or mass effect is present. The ventricular system is unremarkable. The basal cisterns are patent. No extra-axial collections are present. There are no findings to suggest acute dural sinus thrombosis or acute territorial infarct. 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 White matter hypodensities are unchanged. A 1.1 cm right parotid nodule is similar to CT of June 08, 2021. IMPRESSION: No acute intracranial findings. No change in appearance of the brain. ACT 112: Negative or not required by law. Electronically signed by: Heraclio Suarez M.D. 11/19/2022 5:29 PM ECG Data Attestation: I personally reviewed and interpreted this ECG as follows: Rate (beats per minute): 80 Rhythm: + normal sinus ECG Intervals/blocks: + Normal QRS, + Normal [place] and + Normal QT-c ECG ST segments: + Normal ST segments [facility] Narrative 1541: The patient was evaluated in room C1. A complete history and physical exam was performed Cardiac monitoring: An order was placed for continuous cardiac monitoring. The monitor shows a rate of 80 with sinus rhythm interpreted by me 1830: Vital signs stable. Labs show white blood cell count of 12.68. VBG with in normal limits. Procalcitonin mildly elevated 0.54 troponin elevated at 17.3 urinalysis is concerning for UTI and 1+ urine. Chest x-ray shows fluid overload. Patient be treated with Cipro IV piggyback for UTI as well as Lasix for fluid overload. Discussed with family who is now at bedside and will admit the patient for IV antibiotics and diuresis. [facility] hospitalist team Lashell husain will be made aware. Impression & Plan Acute UTI, CHF (congestive heart failure) Discharge Plan Visit Data Chief Complaint: Weakness Stated Complaint: WEAKNESS ED Provider: Kaleb Wallace Discharge Problem: Acute UTI, CHF (congestive heart failure) Patient Disposition: Admitted As Inpatient
[2022-11-19 21:37] LABS: Adenovirus PCR Not Detected (NotDetected); Bordetella parapertussis PCR Not Detected (NotDetected); Bordetella pertussis PCR Not Detected (NotDetected); Chlamydia pneumoniae PCR Not Detected (NotDetected); Coronavirus 229E PCR Not Detected (NotDetected); Coronavirus CoV-2 (COVID19)PCR Not Detected (NotDetected); Coronavirus HKU1 PCR Not Detected (NotDetected); Coronavirus NL63 PCR Not Detected (NotDetected); Coronavirus OC43PCR Not Detected (NotDetected); Human Metapneumovirus PCR Not Detected (NotDetected); Influenza A PCR Not Detected (NotDetected); Influenza B PCR Not Detected (NotDetected); Mycoplasma pneumoniae PCR Not Detected (NotDetected); Parainfluenza Virus 1 PCR Not Detected (NotDetected); Parainfluenza Virus 2 PCR Not Detected (NotDetected); Parainfluenza Virus 3 PCR Not Detected (NotDetected); Parainfluenza Virus 4 PCR Not Detected (NotDetected); Respiratory Syncytial VirusPCR Not Detected (NotDetected); Rhinovirus/Enterovirus PCR Not Detected (NotDetected)
[2022-11-19] MEDS: AZTREONAM 1,000 MG in DEXTROSE 5% MINI-B 100 ML IV SCH (22:53)
[2022-11-19] MEDS: risperiDONE 0.5 MG TABLET PO SCH (22:54)
[2022-11-19] MEDS: predniSONE 20 MG TAB PO SCH (22:54)
[2022-11-19] MEDS: ENOXAPARIN INJ 40 MG/0.4 ML SYR SQ SCH (22:56)
[2022-11-20 03:44] LABS: Hematocrit (blood only) 34.6 % (37.0-47.0); Hemoglobin 10.7 g/dl (12.0-16.0); Mean Corpuscular Hemoglobin 30.8 pg (25.0-34.0); Mean Corpuscular Hgb Conc 30.9 g/dL (32.0-36.0); Mean Corpuscular Volume 99.7 fL (80.0-100.0); Mean Platelet Volume 10.2 fL (9.4-12.4); Platelet Count 224 K/uL (130-400); RDW Coefficient of Variation 16.7 % (11.5-14.5); RDW Standard Deviation 59.9 fL (36.4-46.3); Red Blood Count 3.47 M/uL (4.20-5.40)
[2022-11-20 03:57] LABS: BUN Creatinine Ratio 25.2 (10-20); Calcium 10.3 mg/dl (8.6-10.3); Creatinine Clr Calc Pharmacy 38.1 ml/min; Est GFR (Non-African American) 49.2 ml/min
[2022-11-20] MEDS: AZTREONAM 1,000 MG in DEXTROSE 5% MINI-B 100 ML IV SCH ×3 (06:03→21:55)
[2022-11-20] MEDS: ALBUT/IPRATROP 3MG/0.5MG NEB 3 ML VIAL NEB SCH ×4 (07:44→20:02)
[2022-11-20] MEDS: VIBEGRON 75 MG TAB PO SCH (08:12)
[2022-11-20] MEDS: risperiDONE 0.5 MG TABLET PO SCH ×2 (08:12→21:55)
[2022-11-20] MEDS: SERTRALINE HCL 50 MG TABLET PO SCH (08:13)
[2022-11-20] MEDS: guaiFENesin 600 MG TABCR PO SCH ×2 (08:13→21:54)
[2022-11-20] MEDS: DONEPEZIL HCL 5 MG TAB PO SCH (08:15)
[2022-11-20] MEDS: FOLIC ACID 1 MG TAB PO SCH (08:15)
[2022-11-20] MEDS: lamoTRIgine 25 MG TAB PO SCH (08:15)
[2022-11-20] MEDS: CYANOCOBALAMIN (B-12) 500 MCG TABLET PO SCH (08:15)
[2022-11-20] MEDS: AZITHROMYCIN 250 MG TAB PO SCH (08:16)
[2022-11-20] MEDS: predniSONE 20 MG TAB PO SCH (08:16)
--- NOTE | 2022-11-20 09:07 | Hospitalist Progress Note ---
Date of Service November 20, 2022 Assessment & Plan (1) Hypoxia: (2) COPD exacerbation: (3) Pulmonary edema: Plan: Patient presenting from home with reports of generalized weakness. In the ED, found to be mildly hypoxic on room air at 88%. Currently saturating well on 2 L of oxygen via nasal cannula. Noted to have wheezing on exam and CXR showing mild pulmonary edema. Due to allergy profile, patient empirically started on aztreonam and azithromycin Influenza, COVID, RSV testing negative, bio fire - negative Prednisone 40 mg daily x 5 days - now on hold, for possible bacteremia Pulmonary toilet with nebs, Mucinex, incentive sponsor, flutter valve Mildly elevated HS troponin 17.3 -likely demand ischemia -EKG: No ST changes, no reports of chest pain - Echo 04/2022 -EF 55 to 59%, mild aortic regurgitation, severe mitral calcification with moderate mitral stenosis, mild tricuspid regurgitation, mild pulmonary hypertension - trended down - if any further concern, will obtain echocardiogram and will discuss w/ cardiology (4) UTI (urinary tract infection): Plan: Seen by PCP on 11/15 and empirically started on Macrobid for suspected UTI, UA not obtained, outpatient urine culture pending UA on admission with leukocyte esterase and bacteria however > 30 epithelial cells On aztreonam as above Follow urine culture Bacteremia 1 posit. for Gram posit. cocci clusters - Staph species Repeat blood culture -start empiric vancomycin - may need to discuss further w/ ID (5) Weakness: Plan: Multifactorial due to above acute issues PT/OT evals (6) OAB (overactive bladder): Plan: Chronic, stable, s/p nerve stimulator (7) Depression: (8) Bipolar disorder: Plan: Chronic, stable Continue home meds (9) Renal mass, left: Plan: Following with urology, currently under observation DVT PROPHYLAXIS SQ Lovenox Admission and Anticipated Discharge Date Admission Date: November 19, 2022 Subjective Pt seen in follow up of weakness, hypoxia (mild pulm. laimn., copd exacerb.), dysuria/ UTI started on aztreonam and azithromycin on admission, prednisone received cipro and lasix in ED resp. biofire negative Currently laying in bed in NAD She is able to answer simple questions appropriate. present at the bedside. He says that he helped her with feeding and she was able to eat well. Continues to feel very weak still. No fevers chills chest pain shortness of breath, no abdominal pain. Update: Blood culture positive for gram-positive occi in clusters- staph species. Repeat blood cultx ordered. started vancomycin Review of Systems Review of Systems: All systems reviewed & are unremarkable except as noted in Subjective Physical Exam Physical Exam: General: WD/WN elderly F in NAD, on suppl. O2 Lung: good air entry , CTAB Cardiac: normal S1/S2, no murmur Abd: soft, NT, + bowel sounds MSK: no LE edema Neuro/Psych: AAOX3, normal affect, speech fluent, no facial asymmetry, moves extremities, appears tired though Results & Data Results & Data Vital Signs (Past 12 Hours) Vital Signs Temp Pulse Pulse Resp BP BP Pulse Ox 11/20/22 07:47 36.6 C 77 20 118/77 95 11/20/22 07:46 85 18 91 11/20/22 03:11 36.6 C 77 18 103/67 95 11/20/22 01:27 36.5 C 11/20/22 01:00 82 14 149/86 H 96 11/19/22 23:00 77 26 H 96 11/19/22 23:00 132/77 11/19/22 22:30 77 20 94 11/19/22 22:30 122/67 11/19/22 22:00 76 22 92 11/19/22 22:00 120/69 11/19/22 21:30 78 20 123/71 93 O2 Del Method O2 Flow Rate 11/20/22 07:47 Nasal Cannula 2 11/20/22 07:46 Nasal Cannula 2 11/20/22 03:11 Nasal Cannula 2 11/20/22 01:27 11/20/22 01:00 Nasal Cannula 2 11/19/22 23:00 Nasal Cannula 2 11/19/22 23:00 11/19/22 22:30 11/19/22 22:30 11/19/22 22:00 11/19/22 22:00 11/19/22 21:30 Nasal Cannula 2 Laboratory Results 11/20/22 11/20/22 11/20/22 Range/Units 03:19 03:19 03:19 WBC 8.00 (4.8-10.8) K/ul RBC 3.47 L (4.20-5.40) M/uL Hgb 10.7 L (12.0-16.0) g/dl Hct 34.6 L (37.0-47.0) % MCV 99.7 (80.0-100.0) fL MCH 30.8 (25.0-34.0) pg MCHC 30.9 L (32.0-36.0) g/dL RDW Std Deviation 59.9 H (36.4-46.3) fL RDW Coeff of Ami 16.7 H (11.5-14.5) % Plt Count 224 (130-400) K/uL MPV 10.2 (9.4-12.4) fL Immature Gran % (Auto) % Neut % (Auto) % Lymph % (Auto) % [place] % (Auto) % Eos % (Auto) % Baso % (Auto) % Neut # (Auto) (1.40-6.50) K/uL Lymph # (Auto) (1.20-3.40) K/uL [place] # (Auto) (0.11-0.59) K/uL Eos # (Auto) (0.00-0.50) K/uL Baso # (Auto) (0.00-0.20) K/uL Immature Gran # (Auto) (0.01-0.20) K/uL PT (9.0-12.0) Seconds INR (0.9-1.1) APTT (21.0-31.0) Seconds PTT Ratio VBG pH (7.36-7.41) VBG pCO2 (38-50) mmHg VBG pO2 mmHg VBG HCO3 mmol/L VBG O2 Saturation % VBG Base Excess mEq/L Sodium 139 (136-145) mmol/L Potassium 4.0 (3.5-5.1) mmol/L Chloride 105 (98-107) mmol/L Carbon Dioxide 27 (21-32) mmol/L Anion Gap 7 (3-11) BUN 26 H (6-23) mg/dl Creatinine 1.03 (0.6-1.2) mg/dl Est Cr Clr Drug Dosing 38.1 ml/min Est GFR ( Amer) 57.0 ml/min Est GFR (Non-Af Amer) 49.2 ml/min BUN/Creatinine Ratio 25.2 H (10-20) Glucose 155 H (70-99(Fasting)) mg/dl Lactate (0.4-2.0) mmol/L Calcium 10.3 (8.6-10.3) mg/dl Magnesium (1.7-2.4) mg/dl Total Bilirubin (0.2-1.0) mg/dl Direct Bilirubin (0-0.2) mg/dl AST (13-39) U/L ALT (7-52) U/L Alkaline Phosphatase (34-104) U/L Troponin I High Sens 13.6 (0-14) pg/ml B-Natriuretic Peptide (0-100) pg/ml Total Protein (6.0-8.3) gm/dl Albumin (3.4-5.0) gm/dl Procalcitonin (0-0.5) ng/ml Urine Color Urine Appearance (Clear) Urine pH (4.5-7.5) Ur Specific Sims (1.000-1.030) Urine Protein (Negative) Urine Glucose (UA) (Negative) Urine Ketones (Negative) Urine Blood (Negative) Urine Nitrite (Negative) Urine Bilirubin (Negative) Urine Urobilinogen (Negative) Ur Leukocyte Esterase (Negative) Urine WBC (Auto) (0-5) /hpf Urine RBC (Auto) (0-4) /hpf U Hyaline Cast (Auto) (0-5) /lpf U Epithel Cells (Auto) (0-5) /lpf Urine Bacteria (Auto) (Negative) Adenovirus (PCR) (NotDetected) B. pertussis DNA (PCR) (NotDetected) B.parapertussis DNA PCR (NotDetected) C. pneumoniae DNA (PCR) (NotDetected) Coronavirus OC43 (PCR) (NotDetected) Coronavirus HKU1 (PCR) (NotDetected) Coronavirus 229E (PCR) (NotDetected) SARS-CoV-2 (PCR) (Negative) Coronavirus NL63 (PCR) (NotDetected) Human Metapneumovir PCR (NotDetected) Influenza Type A (PCR) (Neg) Influenza Type B (PCR) (Neg) M. pneumoniae (PCR) (NotDetected) Parainfluenza 1 (PCR) (NotDetected) Parainfluenza 2 (PCR) (NotDetected) Parainfluenza 3 (PCR) (NotDetected) Parainfluenza 4 (PCR) (NotDetected) RSV (RT-PCR) (Neg) RSV (PCR) (NotDetected) Entero/Rhino (PCR) (NotDetected) 11/19/22 11/19/22 11/19/22 Range/Units 23:06 20:27 17:15 WBC (4.8-10.8) K/ul RBC (4.20-5.40) M/uL Hgb (12.0-16.0) g/dl Hct (37.0-47.0) % MCV (80.0-100.0) fL MCH (25.0-34.0) pg MCHC (32.0-36.0) g/dL RDW Std Deviation (36.4-46.3) fL RDW Coeff of Ami (11.5-14.5) % Plt Count (130-400) K/uL MPV (9.4-12.4) fL Immature Gran % (Auto) % Neut % (Auto) % Lymph % (Auto) % [place] % (Auto) % Eos % (Auto) % Baso % (Auto) % Neut # (Auto) (1.40-6.50) K/uL Lymph # (Auto) (1.20-3.40) K/uL [place] # (Auto) (0.11-0.59) K/uL Eos # (Auto) (0.00-0.50) K/uL Baso # (Auto) (0.00-0.20) K/uL Immature Gran # (Auto) (0.01-0.20) K/uL PT (9.0-12.0) Seconds INR (0.9-1.1) APTT (21.0-31.0) Seconds PTT Ratio VBG pH (7.36-7.41) VBG pCO2 (38-50) mmHg VBG pO2 mmHg VBG HCO3 mmol/L VBG O2 Saturation % VBG Base Excess mEq/L Sodium (136-145) mmol/L Potassium (3.5-5.1) mmol/L Chloride (98-107) mmol/L Carbon Dioxide (21-32) mmol/L Anion Gap (3-11) BUN (6-23) mg/dl Creatinine (0.6-1.2) mg/dl Est Cr Clr Drug Dosing ml/min Est GFR ( Amer) ml/min Est GFR (Non-Af Amer) ml/min BUN/Creatinine Ratio (10-20) Glucose (70-99(Fasting)) mg/dl Lactate (0.4-2.0) mmol/L Calcium (8.6-10.3) mg/dl Magnesium (1.7-2.4) mg/dl Total Bilirubin (0.2-1.0) mg/dl Direct Bilirubin (0-0.2) mg/dl AST (13-39) U/L ALT (7-52) U/L Alkaline Phosphatase (34-104) U/L Troponin I High Sens 16.2 H (0-14) pg/ml B-Natriuretic Peptide (0-100) pg/ml Total Protein (6.0-8.3) gm/dl Albumin (3.4-5.0) gm/dl Procalcitonin (0-0.5) ng/ml Urine Color Dark Yellow Urine Appearance Clear (Clear) Urine pH 6.5 (4.5-7.5) Ur Specific Sims 1.015 (1.000-1.030) Urine Protein Negative (Negative) Urine Glucose (UA) Negative (Negative) Urine Ketones Negative (Negative) Urine Blood Negative (Negative) Urine Nitrite Negative (Negative) Urine Bilirubin Negative (Negative) Urine Urobilinogen Negative (Negative) Ur Leukocyte Esterase 2+ H (Negative) Urine WBC (Auto) 10-30 H (0-5) /hpf Urine RBC (Auto) 0-4 (0-4) /hpf U Hyaline Cast (Auto) 1-5 (0-5) /lpf U Epithel Cells (Auto) >30 H (0-5) /lpf Urine Bacteria (Auto) 1+ H (Negative) Adenovirus (PCR) Not Detected (NotDetected) B. pertussis DNA (PCR) Not Detected (NotDetected) B.parapertussis DNA PCR Not Detected (NotDetected) C. pneumoniae DNA (PCR) Not Detected (NotDetected) Coronavirus OC43 (PCR) Not Detected (NotDetected) Coronavirus HKU1 (PCR) Not Detected (NotDetected) Coronavirus 229E (PCR) Not Detected (NotDetected) SARS-CoV-2 (PCR) Not Detected (Negative) Coronavirus NL63 (PCR) Not Detected (NotDetected) Human Metapneumovir PCR Not Detected (NotDetected) Influenza Type A (PCR) Not Detected (Neg) Influenza Type B (PCR) Not Detected (Neg) M. pneumoniae (PCR) Not Detected (NotDetected) Parainfluenza 1 (PCR) Not Detected (NotDetected) Parainfluenza 2 (PCR) Not Detected (NotDetected) Parainfluenza 3 (PCR) Not Detected (NotDetected) Parainfluenza 4 (PCR) Not Detected (NotDetected) RSV (RT-PCR) (Neg) RSV (PCR) Not Detected (NotDetected) Entero/Rhino (PCR) Not Detected (NotDetected) 11/19/22 11/19/22 11/19/22 Range/Units 16:55 16:53 16:53 WBC (4.8-10.8) K/ul RBC (4.20-5.40) M/uL Hgb (12.0-16.0) g/dl Hct (37.0-47.0) % MCV (80.0-100.0) fL MCH (25.0-34.0) pg MCHC (32.0-36.0) g/dL RDW Std Deviation (36.4-46.3) fL RDW Coeff of Ami (11.5-14.5) % Plt Count (130-400) K/uL MPV (9.4-12.4) fL Immature Gran % (Auto) % Neut % (Auto) % Lymph % (Auto) % [place] % (Auto) % Eos % (Auto) % Baso % (Auto) % Neut # (Auto) (1.40-6.50) K/uL Lymph # (Auto) (1.20-3.40) K/uL [place] # (Auto) (0.11-0.59) K/uL Eos # (Auto) (0.00-0.50) K/uL Baso # (Auto) (0.00-0.20) K/uL Immature Gran # (Auto) (0.01-0.20) K/uL PT 10.8 (9.0-12.0) Seconds INR 1.0 (0.9-1.1) APTT 27.5 (21.0-31.0) Seconds PTT Ratio 1.0 VBG pH 7.43 H (7.36-7.41) VBG pCO2 46 (38-50) mmHg VBG pO2 49 mmHg VBG HCO3 31 mmol/L VBG O2 Saturation 80.4 % VBG Base Excess 5.3 mEq/L Sodium (136-145) mmol/L Potassium (3.5-5.1) mmol/L Chloride (98-107) mmol/L Carbon Dioxide (21-32) mmol/L Anion Gap (3-11) BUN (6-23) mg/dl Creatinine (0.6-1.2) mg/dl Est Cr Clr Drug Dosing ml/min Est GFR ( Amer) ml/min Est GFR (Non-Af Amer) ml/min BUN/Creatinine Ratio (10-20) Glucose (70-99(Fasting)) mg/dl Lactate (0.4-2.0) mmol/L Calcium (8.6-10.3) mg/dl Magnesium (1.7-2.4) mg/dl Total Bilirubin (0.2-1.0) mg/dl Direct Bilirubin (0-0.2) mg/dl AST (13-39) U/L ALT (7-52) U/L Alkaline Phosphatase (34-104) U/L Troponin I High Sens (0-14) pg/ml B-Natriuretic Peptide 156 H (0-100) pg/ml Total Protein (6.0-8.3) gm/dl Albumin (3.4-5.0) gm/dl Procalcitonin (0-0.5) ng/ml Urine Color Urine Appearance (Clear) Urine pH (4.5-7.5) Ur Specific Sims (1.000-1.030) Urine Protein (Negative) Urine Glucose (UA) (Negative) Urine Ketones (Negative) Urine Blood (Negative) Urine Nitrite (Negative) Urine Bilirubin (Negative) Urine Urobilinogen (Negative) Ur Leukocyte Esterase (Negative) Urine WBC (Auto) (0-5) /hpf Urine RBC (Auto) (0-4) /hpf U Hyaline Cast (Auto) (0-5) /lpf U Epithel Cells (Auto) (0-5) /lpf Urine Bacteria (Auto) (Negative) Adenovirus (PCR) (NotDetected) B. pertussis DNA (PCR) (NotDetected) B.parapertussis DNA PCR (NotDetected) C. pneumoniae DNA (PCR) (NotDetected) Coronavirus OC43 (PCR) (NotDetected) Coronavirus HKU1 (PCR) (NotDetected) Coronavirus 229E (PCR) (NotDetected) SARS-CoV-2 (PCR) (Negative) Coronavirus NL63 (PCR) (NotDetected) Human Metapneumovir PCR (NotDetected) Influenza Type A (PCR) (Neg) Influenza Type B (PCR) (Neg) M. pneumoniae (PCR) (NotDetected) Parainfluenza 1 (PCR) (NotDetected) Parainfluenza 2 (PCR) (NotDetected) Parainfluenza 3 (PCR) (NotDetected) Parainfluenza 4 (PCR) (NotDetected) RSV (RT-PCR) (Neg) RSV (PCR) (NotDetected) Entero/Rhino (PCR) (NotDetected) 11/19/22 11/19/22 11/19/22 Range/Units 16:53 16:53 16:53 WBC (4.8-10.8) K/ul RBC (4.20-5.40) M/uL Hgb (12.0-16.0) g/dl Hct (37.0-47.0) % MCV (80.0-100.0) fL MCH (25.0-34.0) pg MCHC (32.0-36.0) g/dL RDW Std Deviation (36.4-46.3) fL RDW Coeff of Ami (11.5-14.5) % Plt Count (130-400) K/uL MPV (9.4-12.4) fL Immature Gran % (Auto) % Neut % (Auto) % Lymph % (Auto) % [place] % (Auto) % Eos % (Auto) % Baso % (Auto) % Neut # (Auto) (1.40-6.50) K/uL Lymph # (Auto) (1.20-3.40) K/uL [place] # (Auto) (0.11-0.59) K/uL Eos # (Auto) (0.00-0.50) K/uL Baso # (Auto) (0.00-0.20) K/uL Immature Gran # (Auto) (0.01-0.20) K/uL PT (9.0-12.0) Seconds INR (0.9-1.1) APTT (21.0-31.0) Seconds PTT Ratio VBG pH (7.36-7.41) VBG pCO2 (38-50) mmHg VBG pO2 mmHg VBG HCO3 mmol/L VBG O2 Saturation % VBG Base Excess mEq/L Sodium 139 (136-145) mmol/L Potassium 3.4 L (3.5-5.1) mmol/L Chloride 104 (98-107) mmol/L Carbon Dioxide 28 (21-32) mmol/L Anion Gap 7 (3-11) BUN 27 H (6-23) mg/dl Creatinine 1.01 (0.6-1.2) mg/dl Est Cr Clr Drug Dosing 38.9 ml/min Est GFR ( Amer) 58.4 ml/min Est GFR (Non-Af Amer) 50.4 ml/min BUN/Creatinine Ratio 26.7 H (10-20) Glucose 99 (70-99(Fasting)) mg/dl Lactate 0.8 (0.4-2.0) mmol/L Calcium 10.4 H (8.6-10.3) mg/dl Magnesium 2.4 (1.7-2.4) mg/dl Total Bilirubin 0.4 (0.2-1.0) mg/dl Direct Bilirubin 0.1 (0-0.2) mg/dl AST 30 (13-39) U/L ALT 23 (7-52) U/L Alkaline Phosphatase 87 (34-104) U/L Troponin I High Sens 17.3 H (0-14) pg/ml B-Natriuretic Peptide (0-100) pg/ml Total Protein 6.9 (6.0-8.3) gm/dl Albumin 3.8 (3.4-5.0) gm/dl Procalcitonin 0.54 H (0-0.5) ng/ml Urine Color Urine Appearance (Clear) Urine pH (4.5-7.5) Ur Specific Sims (1.000-1.030) Urine Protein (Negative) Urine Glucose (UA) (Negative) Urine Ketones (Negative) Urine Blood (Negative) Urine Nitrite (Negative) Urine Bilirubin (Negative) Urine Urobilinogen (Negative) Ur Leukocyte Esterase (Negative) Urine WBC (Auto) (0-5) /hpf Urine RBC (Auto) (0-4) /hpf U Hyaline Cast (Auto) (0-5) /lpf U Epithel Cells (Auto) (0-5) /lpf Urine Bacteria (Auto) (Negative) Adenovirus (PCR) (NotDetected) B. pertussis DNA (PCR) (NotDetected) B.parapertussis DNA PCR (NotDetected) C. pneumoniae DNA (PCR) (NotDetected) Coronavirus OC43 (PCR) (NotDetected) Coronavirus HKU1 (PCR) (NotDetected) Coronavirus 229E (PCR) (NotDetected) SARS-CoV-2 (PCR) (Negative) Coronavirus NL63 (PCR) (NotDetected) Human Metapneumovir PCR (NotDetected) Influenza Type A (PCR) (Neg) Influenza Type B (PCR) (Neg) M. pneumoniae (PCR) (NotDetected) Parainfluenza 1 (PCR) (NotDetected) Parainfluenza 2 (PCR) (NotDetected) Parainfluenza 3 (PCR) (NotDetected) Parainfluenza 4 (PCR) (NotDetected) RSV (RT-PCR) (Neg) RSV (PCR) (NotDetected) Entero/Rhino (PCR) (NotDetected) 11/19/22 11/19/22 Range/Units 16:53 16:18 WBC 12.68 H (4.8-10.8) K/ul RBC 3.58 L (4.20-5.40) M/uL Hgb 11.1 L (12.0-16.0) g/dl Hct 34.9 L (37.0-47.0) % MCV 97.5 (80.0-100.0) fL MCH 31.0 (25.0-34.0) pg MCHC 31.8 L (32.0-36.0) g/dL RDW Std Deviation 60.0 H (36.4-46.3) fL RDW Coeff of Ami 16.7 H (11.5-14.5) % Plt Count 257 (130-400) K/uL MPV 10.2 (9.4-12.4) fL Immature Gran % (Auto) 0.4 % Neut % (Auto) 79.5 % Lymph % (Auto) 9.7 % [place] % (Auto) 6.6 % Eos % (Auto) 3.6 % Baso % (Auto) 0.2 % Neut # (Auto) 10.07 H (1.40-6.50) K/uL Lymph # (Auto) 1.23 (1.20-3.40) K/uL [place] # (Auto) 0.84 H (0.11-0.59) K/uL Eos # (Auto) 0.46 (0.00-0.50) K/uL Baso # (Auto) 0.03 (0.00-0.20) K/uL Immature Gran # (Auto) 0.05 (0.01-0.20) K/uL PT (9.0-12.0) Seconds INR (0.9-1.1) APTT (21.0-31.0) Seconds PTT Ratio VBG pH (7.36-7.41) VBG pCO2 (38-50) mmHg VBG pO2 mmHg VBG HCO3 mmol/L VBG O2 Saturation % VBG Base Excess mEq/L Sodium (136-145) mmol/L Potassium (3.5-5.1) mmol/L Chloride (98-107) mmol/L Carbon Dioxide (21-32) mmol/L Anion Gap (3-11) BUN (6-23) mg/dl Creatinine (0.6-1.2) mg/dl Est Cr Clr Drug Dosing ml/min Est GFR ( Amer) ml/min Est GFR (Non-Af Amer) ml/min BUN/Creatinine Ratio (10-20) Glucose (70-99(Fasting)) mg/dl Lactate (0.4-2.0) mmol/L Calcium (8.6-10.3) mg/dl Magnesium (1.7-2.4) mg/dl Total Bilirubin (0.2-1.0) mg/dl Direct Bilirubin (0-0.2) mg/dl AST (13-39) U/L ALT (7-52) U/L Alkaline Phosphatase (34-104) U/L Troponin I High Sens (0-14) pg/ml B-Natriuretic Peptide (0-100) pg/ml Total Protein (6.0-8.3) gm/dl Albumin (3.4-5.0) gm/dl Procalcitonin (0-0.5) ng/ml Urine Color Urine Appearance (Clear) Urine pH (4.5-7.5) Ur Specific Sims (1.000-1.030) Urine Protein (Negative) Urine Glucose (UA) (Negative) Urine Ketones (Negative) Urine Blood (Negative) Urine Nitrite (Negative) Urine Bilirubin (Negative) Urine Urobilinogen (Negative) Ur Leukocyte Esterase (Negative) Urine WBC (Auto) (0-5) /hpf Urine RBC (Auto) (0-4) /hpf U Hyaline Cast (Auto) (0-5) /lpf U Epithel Cells (Auto) (0-5) /lpf Urine Bacteria (Auto) (Negative) Adenovirus (PCR) (NotDetected) B. pertussis DNA (PCR) (NotDetected) B.parapertussis DNA PCR (NotDetected) C. pneumoniae DNA (PCR) (NotDetected) Coronavirus OC43 (PCR) (NotDetected) Coronavirus HKU1 (PCR) (NotDetected) Coronavirus 229E (PCR) (NotDetected) SARS-CoV-2 (PCR) NEGATIVE (Negative) Coronavirus NL63 (PCR) (NotDetected) Human Metapneumovir PCR (NotDetected) Influenza Type A (PCR) Negative (Neg) Influenza Type B (PCR) Negative (Neg) M. pneumoniae (PCR) (NotDetected) Parainfluenza 1 (PCR) (NotDetected) Parainfluenza 2 (PCR) (NotDetected) Parainfluenza 3 (PCR) (NotDetected) Parainfluenza 4 (PCR) (NotDetected) RSV (RT-PCR) Negative (Neg) RSV (PCR) (NotDetected) Entero/Rhino (PCR) (NotDetected) Medications Administered Current Inpatient Medications Acetaminophen (Acetaminophen 325 Mg Tab) 650 mg PO Q4H PRN PRN Reason: pain/fever Stop: 12/19/22 21:32 Albuterol (Albut/Ipratrop 3mg/0.5mg Neb 3 Ml Vial) 3 ml NEB QIDR [facility]; Protocol Stop: 12/20/22 06:59 Last Admin: 11/20/22 07:44 Dose: 3 ml Azithromycin (Azithromycin 250 Mg Tab) 250 mg PO QAM [facility] Stop: 11/27/22 08:59 Last Admin: 11/20/22 08:16 Dose: 250 mg Cyanocobalamin (Cyanocobalamin (B-12) 500 Mcg Tablet) 1,000 mcg PO DAILY [facility] Stop: 12/20/22 08:59 Last Admin: 11/20/22 08:15 Dose: 1,000 mcg Donepezil HCl (Donepezil Hcl 5 Mg Tab) 5 mg PO QDB [facility] Stop: 12/20/22 07:29 Last Admin: 11/20/22 08:15 Dose: 5 mg Enoxaparin Sodium (Enoxaparin Inj 40 Mg/0.4 Ml Syr) 40 mg SQ QPM [facility] Stop: 12/19/22 21:32 Last Admin: 11/19/22 22:56 Dose: 40 mg Folic Acid (Folic Acid 1 Mg Tab) 1 mg PO QAM [facility] Stop: 12/20/22 08:59 Last Admin: 11/20/22 08:15 Dose: 1 mg Guaifenesin (Guaifenesin 600 Mg Tabcr) 600 mg PO Q12 [facility] Stop: 12/20/22 08:59 Last Admin: 11/20/22 08:13 Dose: 600 mg Aztreonam 1,000 mg/ Dextrose 100 mls @ 100 mls/hr IV Q8H [facility] Stop: 11/24/22 21:59 Last Infusion: 11/20/22 07:07 Dose: Infused Lamotrigine (Lamotrigine 25 Mg Tab) 25 mg PO QAM [facility] Stop: 12/20/22 08:59 Last Admin: 11/20/22 08:15 Dose: 25 mg Prednisone (Prednisone 20 Mg Tab) 40 mg PO DAILY [facility] Stop: 11/23/22 09:01 Last Admin: 11/20/22 08:16 Dose: 40 mg Risperidone (Risperidone 0.5 Mg Tablet) 0.5 mg PO BID [facility] Stop: 12/19/22 21:32 Last Admin: 11/20/22 08:12 Dose: 0.5 mg Sertraline HCl (Sertraline Hcl 50 Mg Tablet) 75 mg PO QAM [facility] Stop: 12/20/22 08:59 Last Admin: 11/20/22 08:13 Dose: 75 mg Tramadol HCl (Tramadol Hcl 50 Mg Tablet) 50 mg PO Q8 PRN PRN Reason: Pain Stop: 12/19/22 21:32 Vibegron (Vibegron 75 Mg Tab) 75 mg PO DAILY [facility] Stop: 12/20/22 08:59 Last Admin: 11/20/22 08:12 Dose: 75 mg
[2022-11-20 15:19] LABS: A calco-baum cmplx NotReported Not Detected (NotDetected); Bact fragilis Not Reported Not Detected (NotDetected); C auris Not Reported Not Detected (NotDetected); Calbicans Not Reported Not Detected (NotDetected); Candida glabrata Not Reported Not Detected (NotDetected); Candida krusei Not Reported Not Detected (NotDetected); Cneoformans/gatti Not Reported Not Detected (NotDetected); Cparapsilosis Not Reported Not Detected (NotDetected); E cloacae compx Not Reported Not Detected (NotDetected); Efaecalis Not Reported Not Detected (NotDetected); Efaecium Not Reported Not Detected (NotDetected); Enterobacterales Not Reported Not Detected (NotDetected); Escherichia coli Not Reported Not Detected (NotDetected); H influenzae Not Reported Not Detected (NotDetected); K aerogenes Not Reported Not Detected (NotDetected); Koxytoca Not Reported Not Detected (NotDetected); Kpneumoniae grp Not Reported Not Detected (NotDetected); Lmonocyt Not Reported Not Detected (NotDetected); N meningitidis Not Reported Not Detected (NotDetected); P aeruginosa Not Reported Not Detected (NotDetected); Proteus spp Not Reported Not Detected (NotDetected); Salmonella spp Not Reported Not Detected (NotDetected); Smarcescens Not Reported Not Detected (NotDetected); Staph lugdunensis Not Reported Not Detected (NotDetected); Staph spp. Not Reported DETECTED (NotDetected); Staphaureus Not Reported Not Detected (NotDetected); Staphepi Not Reported Not Detected (NotDetected); Stenmaltophilia Not Reported Not Detected (NotDetected); Strep agal(GrpB) Not Reported Not Detected (NotDetected); Strep pneum Not Reported Not Detected (NotDetected); Strep pyog (GrpA) Not Reported Not Detected (NotDetected); Strep spp Not Reported Not Detected (NotDetected)
[2022-11-20 15:25] LABS: Staphylococcus spp. DETECTED (NotDetected)
[2022-11-20] MEDS ORDERED: VANCOMYCIN CONSULT ACTIVE PRN (16:06)
--- NOTE | 2022-11-20 16:30 | Pharmacy Report ---
Pharmacy PK ABX Note - Date of Service November 20, 2022 - Assessment and Plan Assessment 87 year old F receiving IV Aztreonam + Azithromycin for treatment of COPD Exacerbation, multiple antibiotic allergies. Pertinent microbiologic data includes: 1/2 blood culture growing gram positive cocci, second culture pending. Starting IV Vancomycin for suspected bacteremia. Urine culture pending. Procal elevated yesterday 0.54 WBC improved from yesterday to today, 12.6 --> 8 Afebrile Plan Vancomycin * Loading dose: 1750 mg IV x 1 * Maintenance dose: 1000 mg IV every 24 hours * Regimen is predicted to achieve target AUC/MOHSEN of 400-600 mg/L.hr * Drug levels to be ordered after evaluation by pharmacist on 11/21. Aztreonam 1g IV Q8H Azithromycin 250mg PO Q24H Pharmacy will continue to follow and will adjust dose/frequency as necessary. Thank you. Pharmacy has transitioned to AUC monitoring for vancomycin. AUC/MOHSEN is the preferred PK/PD target and is associated with decreased risk of nephrotoxicity compared to traditional trough targets.
[2022-11-20] MEDS ORDERED: VANCOMYCIN HCL 1,750 MG in SODIUM CHLORIDE 0.9% 500 ML IV SCH (17:00)
[2022-11-20] MEDS: ENOXAPARIN INJ 40 MG/0.4 ML SYR SQ SCH (21:53)
[2022-11-21] MEDS: AZTREONAM 1,000 MG in DEXTROSE 5% MINI-B 100 ML IV SCH ×3 (05:01→22:09)
[2022-11-21] MEDS: VANCOMYCIN HCL 1,000 MG in SODIUM CHLORIDE 0.9% 250 ML IV SCH (06:04)
[2022-11-21] MEDS: ALBUT/IPRATROP 3MG/0.5MG NEB 3 ML VIAL NEB SCH ×4 (07:07→19:13)
[2022-11-21 07:41] LABS: Hemoglobin 9.4 g/dl (12.0-16.0); Mean Corpuscular Hemoglobin 30.7 pg (25.0-34.0); Mean Corpuscular Hgb Conc 30.3 g/dL (32.0-36.0); Mean Corpuscular Volume 101.3 fL (80.0-100.0); Platelet Count 191 K/uL (130-400); RDW Coefficient of Variation 16.6 % (11.5-14.5); RDW Standard Deviation 61.1 fL (36.4-46.3); Red Blood Count 3.06 M/uL (4.20-5.40); White Blood Count 7.46 K/ul (4.8-10.8)
[2022-11-21 07:56] LABS: BUN Creatinine Ratio 37.9 (10-20); Calcium 9.6 mg/dl (8.6-10.3); Creatinine Clr Calc Pharmacy 41.3 ml/min; Est GFR (African American) 62.9 ml/min; Est GFR (Non-African American) 54.2 ml/min; Phosphorus 2.8 mg/dl (2.5-4.9); Potassium 3.7 mmol/L (3.5-5.1)
[2022-11-21] MEDS: DONEPEZIL HCL 5 MG TAB PO SCH (08:12)
[2022-11-21] MEDS: AZITHROMYCIN 250 MG TAB PO SCH (08:13)
[2022-11-21] MEDS: SERTRALINE HCL 50 MG TABLET PO SCH (08:13)
[2022-11-21] MEDS: FOLIC ACID 1 MG TAB PO SCH (08:13)
[2022-11-21] MEDS: guaiFENesin 600 MG TABCR PO SCH ×2 (08:13→22:10)
[2022-11-21] MEDS: CYANOCOBALAMIN (B-12) 500 MCG TABLET PO SCH (08:13)
[2022-11-21] MEDS: risperiDONE 0.5 MG TABLET PO SCH ×2 (08:14→22:10)
[2022-11-21] MEDS: VIBEGRON 75 MG TAB PO SCH (08:14)
[2022-11-21] MEDS: lamoTRIgine 25 MG TAB PO SCH (08:14)
--- NOTE | 2022-11-21 11:37 | Hospitalist Progress Note ---
Date of Service November 21, 2022 Assessment & Plan (1) Hypoxia: (2) COPD exacerbation: (3) Pulmonary edema: Plan: Patient presenting from home with reports of generalized weakness. In the ED, found to be mildly hypoxic on room air at 88%. Currently saturating well on 2 L of oxygen via nasal cannula. Noted to have wheezing on exam and CXR showing mild pulmonary edema. Due to allergy profile, patient empirically started on aztreonam and azithromycin Influenza, COVID, RSV testing negative, bio fire - negative Prednisone 40 mg daily x 5 days Pulmonary toilet with nebs, Mucinex, incentive sponsor, flutter valve - Pt also plans to have sleep study done in November Mildly elevated HS troponin 17.3 -likely demand ischemia -EKG: No ST changes, no reports of chest pain - Echo 04/2022 -EF 55 to 59%, mild aortic regurgitation, severe mitral calcification with moderate mitral stenosis, mild tricuspid regurgitation, mild pulmonary hypertension - trended down - if any further concern, will obtain echocardiogram and will discuss w/ cardiology (4) UTI (urinary tract infection): Plan: Seen by PCP on 11/15 and empirically started on Macrobid for suspected UTI, UA not obtained, outpatient urine culture pending UA on admission with leukocyte esterase and bacteria however > 30 epithelial cells On aztreonam as above urine culture - high counts mixed elieser - likely skin elieser ?Bacteremia 1 posit. for Gram posit. cocci clusters - Staph species - Coag negat. staph not lugdunensis Repeat blood culture so far negative -started empiric vancomycin -possible contaminant - may discuss further w/ ID (5) Weakness: Plan: Multifactorial due to above acute issues PT/OT evals (6) OAB (overactive bladder): Plan: Chronic, stable, s/p nerve stimulator (7) Depression: (8) Bipolar disorder: Plan: Chronic, stable Continue home meds (9) Renal mass, left: Plan: Following with urology, currently under observation DVT PROPHYLAXIS SQ Lovenox Admission and Anticipated Discharge Date Admission Date: November 20, 2022 Subjective Pt seen in follow up of weakness, hypoxia (mild pulm. lamin., copd exacerb.), dysuria/ UTI started on aztreonam and azithromycin on admission, prednisone received cipro and lasix in ED resp. biofire negative Currently sitting up in bed in NAD, on 2L of suppl. O2 via NC - plans to have sleep study done in November She is feeling better, ate with 's help at the bedside. Says she has not been out of bed yet. No fevers chills chest pain shortness of breath, no abdominal pain. Yesterday Blood culture positive for gram-positive occi in clusters- staph species. Repeat blood cultx ordered. started vancomycin Review of Systems Review of Systems: All systems reviewed & are unremarkable except as noted in Subjective Physical Exam Physical Exam: General: WD/WN elderly F in NAD, on suppl. O2 Lung: good air entry , CTAB Cardiac: normal S1/S2, no murmur Abd: soft, NT, + bowel sounds MSK: no LE edema Neuro/Psych: AAOX3, normal affect, speech fluent, no facial asymmetry, moves extremities, appears tired though Results & Data Results & Data Vital Signs (Past 12 Hours) Vital Signs Temp Pulse Resp BP Pulse Ox O2 Del Method O2 Flow Rate 11/21/22 11:28 37.2 C 89 20 111/64 91 Nasal Cannula 2 11/21/22 10:45 84 18 95 Nasal Cannula 2 11/21/22 08:29 Nasal Cannula 2 11/21/22 07:07 70 18 92 Nasal Cannula 2 11/21/22 06:36 36.7 C 74 20 120/76 93 Nasal Cannula 2 11/21/22 03:54 36.6 C 71 18 117/73 94 Nasal Cannula 2 Laboratory Results 11/21/22 11/21/22 11/19/22 Range/Units 07:15 07:15 16:45 WBC 7.46 (4.8-10.8) K/ul RBC 3.06 L (4.20-5.40) M/uL Hgb 9.4 L (12.0-16.0) g/dl Hct 31.0 L (37.0-47.0) % MCV 101.3 H (80.0-100.0) fL MCH 30.7 (25.0-34.0) pg MCHC 30.3 L (32.0-36.0) g/dL RDW Std Deviation 61.1 H (36.4-46.3) fL RDW Coeff of Ami 16.6 H (11.5-14.5) % Plt Count 191 (130-400) K/uL MPV 11.0 (9.4-12.4) fL Sodium 141 (136-145) mmol/L Potassium 3.7 (3.5-5.1) mmol/L Chloride 108 H (98-107) mmol/L Carbon Dioxide 28 (21-32) mmol/L Anion Gap 5 (3-11) BUN 36 H (6-23) mg/dl Creatinine 0.95 (0.6-1.2) mg/dl Est Cr Clr Drug Dosing 41.3 ml/min Est GFR ( Amer) 62.9 ml/min Est GFR (Non-Af Amer) 54.2 ml/min BUN/Creatinine Ratio 37.9 H (10-20) Glucose 113 H (70-99(Fasting)) mg/dl Calcium 9.6 (8.6-10.3) mg/dl Phosphorus 2.8 (2.5-4.9) mg/dl Magnesium 2.0 (1.7-2.4) mg/dl Staphylococcus sp PCR DETECTED A (NotDetected) Bld Cult ID Panel PCR See PCR Comment (NotDetected) Medications Administered Current Inpatient Medications Acetaminophen (Acetaminophen 325 Mg Tab) 650 mg PO Q4H PRN PRN Reason: pain/fever Stop: 12/19/22 21:32 Albuterol (Albut/Ipratrop 3mg/0.5mg Neb 3 Ml Vial) 3 ml NEB QIDR [facility]; Protocol Stop: 12/20/22 06:59 Last Admin: 11/21/22 10:45 Dose: 3 ml Azithromycin (Azithromycin 250 Mg Tab) 250 mg PO QAM [facility] Stop: 11/27/22 08:59 Last Admin: 11/21/22 08:13 Dose: 250 mg Cyanocobalamin (Cyanocobalamin (B-12) 500 Mcg Tablet) 1,000 mcg PO DAILY [facility] Stop: 12/20/22 08:59 Last Admin: 11/21/22 08:13 Dose: 1,000 mcg Donepezil HCl (Donepezil Hcl 5 Mg Tab) 5 mg PO QDB [facility] Stop: 12/20/22 07:29 Last Admin: 11/21/22 08:12 Dose: 5 mg Enoxaparin Sodium (Enoxaparin Inj 40 Mg/0.4 Ml Syr) 40 mg SQ QPM [facility] Stop: 12/19/22 21:32 Last Admin: 11/20/22 21:53 Dose: 40 mg Folic Acid (Folic Acid 1 Mg Tab) 1 mg PO QAM [facility] Stop: 12/20/22 08:59 Last Admin: 11/21/22 08:13 Dose: 1 mg Guaifenesin (Guaifenesin 600 Mg Tabcr) 600 mg PO Q12 [facility] Stop: 12/20/22 08:59 Last Admin: 11/21/22 08:13 Dose: 600 mg Aztreonam 1,000 mg/ Dextrose 100 mls @ 100 mls/hr IV Q8H [facility] Stop: 11/24/22 21:59 Last Infusion: 11/21/22 06:03 Dose: Infused Vancomycin HCl 1,000 mg/ (Sodium Chloride) 270 mls @ 200 mls/hr IV Q24H [facility]; Protocol Stop: 12/05/22 05:59 Last Infusion: 11/21/22 08:16 Dose: Infused Lamotrigine (Lamotrigine 25 Mg Tab) 25 mg PO QAM [facility] Stop: 12/20/22 08:59 Last Admin: 11/21/22 08:14 Dose: 25 mg Miscellaneous Information (Vancomycin Consult Active) 1 each N/A UD PRN PRN Reason: Consult Stop: 12/20/22 16:05 Prednisone (Prednisone 20 Mg Tab) 40 mg PO DAILY [facility] Last Admin: 11/20/22 08:16 Dose: 40 mg Risperidone (Risperidone 0.5 Mg Tablet) 0.5 mg PO BID [facility] Stop: 12/19/22 21:32 Last Admin: 11/21/22 08:14 Dose: 0.5 mg Sertraline HCl (Sertraline Hcl 50 Mg Tablet) 75 mg PO QAM [facility] Stop: 12/20/22 08:59 Last Admin: 11/21/22 08:13 Dose: 75 mg Tramadol HCl (Tramadol Hcl 50 Mg Tablet) 50 mg PO Q8 PRN PRN Reason: Pain Stop: 12/19/22 21:32 Vibegron (Vibegron 75 Mg Tab) 75 mg PO DAILY [facility] Stop: 12/20/22 08:59 Last Admin: 11/21/22 08:14 Dose: 75 mg
[2022-11-21] MEDS ORDERED: INFLUENZA VACCINE HIGH-DOSE (HD-IIV4) PF 65+ 0.7mL SYR IM ONE (16:33)
[2022-11-21] MEDS: ADVANCED PROBIOTIC 1250 MG CAPSULE PO SCH (17:56)
[2022-11-21] MEDS: ENOXAPARIN INJ 40 MG/0.4 ML SYR SQ SCH (22:09)
--- NOTE | 2022-11-21 22:33 | Electrocardiogram Report ---
Test Reason : Blood Pressure : / mmHG Vent. Rate : 080 BPM Atrial Rate : 080 BPM P-R Int : 178 ms QRS Dur : 088 ms QT Int : 388 ms P-R-T Axes : 079 042 071 degrees QTc Int : 447 ms Normal sinus rhythm Cannot rule out Anteroseptal infarct (cited on or before 30-APR-2015) Abnormal ECG When compared with ECG of 06-OCT-2022 18:11, Criteria for Inferior infarct are no longer Present Questionable change in initial forces of Anterior leads Confirmed by Erick Laureano ([id number]) on 11/21/2022 10:33:22 PM Referred By: Confirmed By:Erick Laureano
[2022-11-22 04:12] LABS: Hematocrit (blood only) 31.6 % (37.0-47.0); Hemoglobin 9.9 g/dl (12.0-16.0); Mean Corpuscular Hemoglobin 31.6 pg (25.0-34.0); Mean Corpuscular Hgb Conc 31.3 g/dL (32.0-36.0); Mean Platelet Volume 10.3 fL (9.4-12.4); Platelet Count 220 K/uL (130-400); RDW Coefficient of Variation 16.5 % (11.5-14.5); RDW Standard Deviation 60.6 fL (36.4-46.3); Red Blood Count 3.13 M/uL (4.20-5.40); White Blood Count 8.41 K/ul (4.8-10.8)
[2022-11-22 04:15] LABS: BUN Creatinine Ratio 35.6 (10-20); Calcium 9.8 mg/dl (8.6-10.3); Creatinine Clr Calc Pharmacy 38.9 ml/min; Est GFR (African American) 58.4 ml/min; Est GFR (Non-African American) 50.4 ml/min; Phosphorus 2.6 mg/dl (2.5-4.9); Potassium 4.1 mmol/L (3.5-5.1)
[2022-11-22] MEDS ORDERED: VANCOMYCIN LEVEL SCH (05:00)
[2022-11-22] MEDS: AZTREONAM 1,000 MG in DEXTROSE 5% MINI-B 100 ML IV SCH ×3 (05:34→21:28)
[2022-11-22] MEDS: VANCOMYCIN HCL 1,000 MG in SODIUM CHLORIDE 0.9% 250 ML IV SCH (06:26)
[2022-11-22] MEDS: ALBUT/IPRATROP 3MG/0.5MG NEB 3 ML VIAL NEB SCH ×4 (07:16→19:12)
[2022-11-22] MEDS: DONEPEZIL HCL 5 MG TAB PO SCH (08:47)
[2022-11-22] MEDS: FOLIC ACID 1 MG TAB PO SCH (08:47)
[2022-11-22] MEDS: CYANOCOBALAMIN (B-12) 500 MCG TABLET PO SCH (08:47)
[2022-11-22] MEDS: AZITHROMYCIN 250 MG TAB PO SCH (08:47)
[2022-11-22] MEDS: guaiFENesin 600 MG TABCR PO SCH ×2 (08:48→21:20)
[2022-11-22] MEDS: lamoTRIgine 25 MG TAB PO SCH (08:48)
[2022-11-22] MEDS: ADVANCED PROBIOTIC 1250 MG CAPSULE PO SCH (08:48)
[2022-11-22] MEDS: SERTRALINE HCL 50 MG TABLET PO SCH (08:49)
[2022-11-22] MEDS: VIBEGRON 75 MG TAB PO SCH (08:49)
[2022-11-22] MEDS: risperiDONE 0.5 MG TABLET PO SCH ×2 (08:49→21:20)
[2022-11-22] MEDS: predniSONE 20 MG TAB PO SCH (08:49)
--- NOTE | 2022-11-22 08:57 | Hospitalist Progress Note ---
Date of Service November 22, 2022 Assessment & Plan (1) Hypoxia: (2) COPD exacerbation: (3) Pulmonary edema: Plan: Patient presenting from home with reports of generalized weakness. In the ED, found to be mildly hypoxic on room air at 88%. Currently saturating well on 2 L of oxygen via nasal cannula. Noted to have wheezing on exam and CXR showing mild pulmonary edema. Due to allergy profile, patient empirically started on aztreonam and azithromycin Influenza, COVID, RSV testing negative, bio fire - negative Prednisone 40 mg daily x 5 days Pulmonary toilet with nebs, Mucinex, incentive sponsor, flutter valve - Pt also plans to have sleep study done in November Mildly elevated HS troponin 17.3 -likely demand ischemia -EKG: No ST changes, no reports of chest pain - Echo 04/2022 -EF 55 to 59%, mild aortic regurgitation, severe mitral calcification with moderate mitral stenosis, mild tricuspid regurgitation, mild pulmonary hypertension - trended down - if any further concern, will obtain echocardiogram and will discuss w/ cardiology (4) UTI (urinary tract infection): Plan: Seen by PCP on 11/15 and empirically started on Macrobid for suspected UTI, UA not obtained, outpatient urine culture pending UA on admission with leukocyte esterase and bacteria however > 30 epithelial cells On aztreonam as above urine culture - high counts mixed elieser - likely skin elieser ?Bacteremia Gram posit. cocci clusters - Staph species - Coag negat. staph not lugdunensis x2 - discussed w/ ID - likely contaminant Repeat blood culture ordered -started empiric vancomycin - will stop now as likely contaminant - follow final cultx result (5) Weakness: Plan: Multifactorial due to above acute issues PT/OT evals (6) OAB (overactive bladder): Plan: Chronic, stable, s/p nerve stimulator (7) Depression: (8) Bipolar disorder: Plan: Chronic, stable Continue home meds (9) Renal mass, left: Plan: Following with urology, currently under observation DVT PROPHYLAXIS SQ Lovenox Admission and Anticipated Discharge Date Admission Date: November 20, 2022 Subjective Pt seen in follow up of weakness, hypoxia (mild pulm. lamin., copd exacerb.), dysuria/ UTI started on aztreonam and azithromycin on admission, prednisone received cipro and lasix in ED resp. biofire negative Currently sitting up in chair in NAD, on 2L of suppl. O2 via NC - plans to have sleep study done in November She is feeling better, coughed up yellow sputum today. No fevers chills chest pain shortness of breath, no abdominal pain. Blood culture positive - discussed w/ ID - likely contaminant Review of Systems Review of Systems: All systems reviewed & are unremarkable except as noted in Subjective Physical Exam Physical Exam: General: WD/WN elderly F in NAD, on suppl. O2 Lung: good air entry , CTAB Cardiac: normal S1/S2, no murmur Abd: soft, NT, + bowel sounds MSK: no LE edema Neuro/Psych: AAOX3, normal affect, speech fluent, no facial asymmetry, moves extremities, appears tired though Results & Data Results & Data Vital Signs (Past 12 Hours) Vital Signs Temp Pulse Pulse Resp BP Pulse Ox O2 Del Method 11/22/22 07:44 36.6 C 75 18 122/75 100 Nebulizer 11/22/22 07:16 76 18 95 Nasal Cannula 11/22/22 07:02 77 11/22/22 03:51 36.5 C 90 16 124/76 95 Nasal Cannula 11/21/22 22:00 80 11/21/22 23:10 Nasal Cannula 11/21/22 22:43 36.7 C 81 18 126/75 95 Nasal Cannula O2 Flow Rate 11/22/22 07:44 11/22/22 07:16 3 11/22/22 07:02 11/22/22 03:51 3 11/21/22 22:00 11/21/22 23:10 2 11/21/22 22:43 3 Laboratory Results 11/22/22 11/22/22 11/22/22 Range/Units 03:36 03:36 03:36 WBC 8.41 (4.8-10.8) K/ul RBC 3.13 L (4.20-5.40) M/uL Hgb 9.9 L (12.0-16.0) g/dl Hct 31.6 L (37.0-47.0) % MCV 101.0 H (80.0-100.0) fL MCH 31.6 (25.0-34.0) pg MCHC 31.3 L (32.0-36.0) g/dL RDW Std Deviation 60.6 H (36.4-46.3) fL RDW Coeff of Ami 16.5 H (11.5-14.5) % Plt Count 220 (130-400) K/uL MPV 10.3 (9.4-12.4) fL Sodium 140 (136-145) mmol/L Potassium 4.1 (3.5-5.1) mmol/L Chloride 109 H (98-107) mmol/L Carbon Dioxide 26 (21-32) mmol/L Anion Gap 5 (3-11) BUN 36 H (6-23) mg/dl Creatinine 1.01 (0.6-1.2) mg/dl Est Cr Clr Drug Dosing 38.9 ml/min Est GFR ( Amer) 58.4 ml/min Est GFR (Non-Af Amer) 50.4 ml/min BUN/Creatinine Ratio 35.6 H (10-20) Glucose 103 H (70-99(Fasting)) mg/dl Calcium 9.8 (8.6-10.3) mg/dl Phosphorus 2.6 (2.5-4.9) mg/dl Magnesium 2.0 (1.7-2.4) mg/dl Random Vancomycin 9.4 L (10-20) mcg/ml Medications Administered Current Inpatient Medications Acetaminophen (Acetaminophen 325 Mg Tab) 650 mg PO Q4H PRN PRN Reason: pain/fever Stop: 12/19/22 21:32 Albuterol (Albut/Ipratrop 3mg/0.5mg Neb 3 Ml Vial) 3 ml NEB QIDR [facility]; Protocol Stop: 12/20/22 06:59 Last Admin: 11/22/22 07:16 Dose: 3 ml Azithromycin (Azithromycin 250 Mg Tab) 250 mg PO QAM [facility] Stop: 11/27/22 08:59 Last Admin: 11/22/22 08:47 Dose: 250 mg Cyanocobalamin (Cyanocobalamin (B-12) 500 Mcg Tablet) 1,000 mcg PO DAILY [facility] Stop: 12/20/22 08:59 Last Admin: 11/22/22 08:47 Dose: 1,000 mcg Donepezil HCl (Donepezil Hcl 5 Mg Tab) 5 mg PO QDB [facility] Stop: 12/20/22 07:29 Last Admin: 11/22/22 08:47 Dose: 5 mg Enoxaparin Sodium (Enoxaparin Inj 40 Mg/0.4 Ml Syr) 40 mg SQ QPM [facility] Stop: 12/19/22 21:32 Last Admin: 11/21/22 22:09 Dose: 40 mg Folic Acid (Folic Acid 1 Mg Tab) 1 mg PO QAM [facility] Stop: 12/20/22 08:59 Last Admin: 11/22/22 08:47 Dose: 1 mg Guaifenesin (Guaifenesin 600 Mg Tabcr) 600 mg PO Q12 [facility] Stop: 12/20/22 08:59 Last Admin: 11/22/22 08:48 Dose: 600 mg Aztreonam 1,000 mg/ Dextrose 100 mls @ 100 mls/hr IV Q8H [facility] Stop: 11/24/22 21:59 Last Infusion: 11/22/22 06:54 Dose: Infused Vancomycin HCl 1,000 mg/ (Sodium Chloride) 270 mls @ 200 mls/hr IV Q24H [facility]; Protocol Stop: 12/05/22 05:59 Last Admin: 11/22/22 06:26 Dose: 200 mls/hr Lactobacillus Acidophilus (Advanced Probiotic 1250 Mg Capsule) 2 cap PO DAILY [facility] Stop: 12/21/22 16:44 Last Admin: 11/22/22 08:48 Dose: 2 cap Lamotrigine (Lamotrigine 25 Mg Tab) 25 mg PO QAM [facility] Stop: 12/20/22 08:59 Last Admin: 11/22/22 08:48 Dose: 25 mg Miscellaneous Information (Vancomycin Consult Active) 1 each N/A UD PRN PRN Reason: Consult Stop: 12/20/22 16:05 Prednisone (Prednisone 20 Mg Tab) 40 mg PO DAILY [facility] Stop: 11/24/22 09:01 Last Admin: 11/22/22 08:49 Dose: 40 mg Risperidone (Risperidone 0.5 Mg Tablet) 0.5 mg PO BID [facility] Stop: 12/19/22 21:32 Last Admin: 11/22/22 08:49 Dose: 0.5 mg Sertraline HCl (Sertraline Hcl 50 Mg Tablet) 75 mg PO QAM [facility] Stop: 12/20/22 08:59 Last Admin: 11/22/22 08:49 Dose: 75 mg Tramadol HCl (Tramadol Hcl 50 Mg Tablet) 50 mg PO Q8 PRN PRN Reason: Pain Stop: 12/19/22 21:32 Vibegron (Vibegron 75 Mg Tab) 75 mg PO DAILY [facility] Stop: 12/20/22 08:59 Last Admin: 11/22/22 08:49 Dose: 75 mg
[2022-11-22] MEDS: ENOXAPARIN INJ 40 MG/0.4 ML SYR SQ SCH (21:20)
[2022-11-23] MEDS: AZTREONAM 1,000 MG in DEXTROSE 5% MINI-B 100 ML IV SCH ×3 (05:32→21:18)
[2022-11-23] MEDS: ALBUT/IPRATROP 3MG/0.5MG NEB 3 ML VIAL NEB SCH ×4 (07:03→19:37)
[2022-11-23] MEDS: DONEPEZIL HCL 5 MG TAB PO SCH (07:44)
[2022-11-23 07:45] LABS: Hematocrit (blood only) 32.2 % (37.0-47.0); Hemoglobin 9.9 g/dl (12.0-16.0); Mean Corpuscular Hemoglobin 30.3 pg (25.0-34.0); Mean Corpuscular Hgb Conc 30.7 g/dL (32.0-36.0); Mean Corpuscular Volume 98.5 fL (80.0-100.0); Mean Platelet Volume 10.1 fL (9.4-12.4); Platelet Count 218 K/uL (130-400); RDW Coefficient of Variation 16.1 % (11.5-14.5); RDW Standard Deviation 57.9 fL (36.4-46.3); Red Blood Count 3.27 M/uL (4.20-5.40)
--- NOTE | 2022-11-23 07:54 | Hospitalist Progress Note ---
Date of Service November 23, 2022 Assessment & Plan (1) Hypoxia: (2) COPD exacerbation: (3) Pulmonary edema: Plan: Patient presenting from home with reports of generalized weakness. In the ED, found to be mildly hypoxic on room air at 88%. Currently saturating well on 2 L of oxygen via nasal cannula. Noted to have wheezing on exam and CXR showing mild pulmonary edema. Due to allergy profile, patient empirically started on aztreonam and azithromycin Influenza, COVID, RSV testing negative, bio fire - negative Prednisone 40 mg daily x 5 days Pulmonary toilet with nebs, Mucinex, incentive sponsor, flutter valve - Pt also plans to have sleep study done in November Mildly elevated HS troponin 17.3 -likely demand ischemia -EKG: No ST changes, no reports of chest pain - Echo 04/2022 -EF 55 to 59%, mild aortic regurgitation, severe mitral calcification with moderate mitral stenosis, mild tricuspid regurgitation, mild pulmonary hypertension - trended down - if any further concern, will obtain echocardiogram and will discuss w/ cardiology (4) UTI (urinary tract infection): Plan: Seen by PCP on 11/15 and empirically started on Macrobid for suspected UTI, UA not obtained, outpatient urine culture pending UA on admission with leukocyte esterase and bacteria however > 30 epithelial cells On aztreonam as above urine culture - high counts mixed elieser - likely skin elieser ?Bacteremia Gram posit. cocci clusters - Staph species - Coag negat. staph not lugdunensis x2 - discussed w/ ID - likely contaminant Repeat blood culture ordered - one of them again coag. negat. staph -started empiric vancomycin - stopped now as likely contaminant - follow final cultx results (5) Weakness: Plan: Multifactorial due to above acute issues PT/OT evals (6) OAB (overactive bladder): Plan: Chronic, stable, s/p nerve stimulator (7) Depression: (8) Bipolar disorder: Plan: Chronic, stable Continue home meds (9) Renal mass, left: Plan: Following with urology, currently under observation DVT PROPHYLAXIS SQ Lovenox Admission and Anticipated Discharge Date Admission Date: November 20, 2022 Subjective Pt seen in follow up of weakness, hypoxia (mild pulm. lamin., copd exacerb.), dysuria/ UTI started on aztreonam and azithromycin on admission, prednisone received cipro and lasix in ED resp. biofire negative Currently sitting up in chair in NAD, on 2L of suppl. O2 via NC - plans to have sleep study done in November She is feeling better, coughed up yellow sputum yesterday. No fevers chills chest pain shortness of breath, no abdominal pain. Cont. to feel tired/ weak. Blood culture positive - discussed w/ ID - likely contaminant will repeat CXR Review of Systems Review of Systems: All systems reviewed & are unremarkable except as noted in Subjective Physical Exam Physical Exam: General: WD/WN elderly F in NAD, on suppl. O2 Lung: good air entry , CTAB Cardiac: normal S1/S2, no murmur Abd: soft, NT, + bowel sounds MSK: no LE edema Neuro/Psych: AAOX3, normal affect, speech fluent, no facial asymmetry, moves extremities, appears tired though Results & Data Results & Data Vital Signs (Past 12 Hours) Vital Signs Temp Pulse Pulse Resp BP Pulse Ox O2 Del Method 11/23/22 07:31 36.7 C 84 17 123/70 93 Nasal Cannula 11/23/22 07:36 Nasal Cannula 11/23/22 05:59 77 11/23/22 07:03 86 16 94 Nasal Cannula 11/23/22 05:17 36.8 C 91 H 20 121/61 93 Nasal Cannula 11/22/22 23:58 36.7 C 87 20 103/63 94 Room Air 11/22/22 22:00 89 O2 Flow Rate 11/23/22 07:31 3 11/23/22 07:36 2 11/23/22 05:59 11/23/22 07:03 3 11/23/22 05:17 3 11/22/22 23:58 11/22/22 22:00 Laboratory Results 11/23/22 11/23/22 Range/Units 07:26 07:21 WBC 11.20 H (4.8-10.8) K/ul RBC 3.27 L (4.20-5.40) M/uL Hgb 9.9 L (12.0-16.0) g/dl Hct 32.2 L (37.0-47.0) % MCV 98.5 (80.0-100.0) fL MCH 30.3 (25.0-34.0) pg MCHC 30.7 L (32.0-36.0) g/dL RDW Std Deviation 57.9 H (36.4-46.3) fL RDW Coeff of Ami 16.1 H (11.5-14.5) % Plt Count 218 (130-400) K/uL MPV 10.1 (9.4-12.4) fL Sodium 141 (136-145) mmol/L Potassium 4.0 (3.5-5.1) mmol/L Chloride 110 H (98-107) mmol/L Carbon Dioxide 28 (21-32) mmol/L Anion Gap 3 (3-11) BUN 33 H (6-23) mg/dl Creatinine 0.80 (0.6-1.2) mg/dl Est Cr Clr Drug Dosing 53.4 ml/min Est GFR ( Amer) 77.4 ml/min Est GFR (Non-Af Amer) 66.8 ml/min BUN/Creatinine Ratio 41.3 H (10-20) Glucose 113 H (70-99(Fasting)) mg/dl Calcium 10.1 (8.6-10.3) mg/dl Phosphorus 1.9 L (2.5-4.9) mg/dl Magnesium 2.1 (1.7-2.4) mg/dl Medications Administered Current Inpatient Medications Acetaminophen (Acetaminophen 325 Mg Tab) 650 mg PO Q4H PRN PRN Reason: pain/fever Stop: 12/19/22 21:32 Albuterol (Albut/Ipratrop 3mg/0.5mg Neb 3 Ml Vial) 3 ml NEB QIDR [facility]; Protocol Stop: 12/20/22 06:59 Last Admin: 11/23/22 07:03 Dose: 3 ml Azithromycin (Azithromycin 250 Mg Tab) 250 mg PO QAM [facility] Stop: 11/27/22 08:59 Last Admin: 11/22/22 08:47 Dose: 250 mg Cyanocobalamin (Cyanocobalamin (B-12) 500 Mcg Tablet) 1,000 mcg PO DAILY [facility] Stop: 12/20/22 08:59 Last Admin: 11/22/22 08:47 Dose: 1,000 mcg Donepezil HCl (Donepezil Hcl 5 Mg Tab) 5 mg PO QDB [facility] Stop: 12/20/22 07:29 Last Admin: 11/23/22 07:44 Dose: 5 mg Enoxaparin Sodium (Enoxaparin Inj 40 Mg/0.4 Ml Syr) 40 mg SQ QPM [facility] Stop: 12/19/22 21:32 Last Admin: 11/22/22 21:20 Dose: 40 mg Folic Acid (Folic Acid 1 Mg Tab) 1 mg PO QAM [facility] Stop: 12/20/22 08:59 Last Admin: 11/22/22 08:47 Dose: 1 mg Guaifenesin (Guaifenesin 600 Mg Tabcr) 600 mg PO Q12 [facility] Stop: 12/20/22 08:59 Last Admin: 11/22/22 21:20 Dose: 600 mg Aztreonam 1,000 mg/ Dextrose 100 mls @ 100 mls/hr IV Q8H [facility] Stop: 11/24/22 21:59 Last Admin: 11/23/22 05:32 Dose: 100 mls/hr Lactobacillus Acidophilus (Advanced Probiotic 1250 Mg Capsule) 2 cap PO DAILY [facility] Stop: 12/21/22 16:44 Last Admin: 11/22/22 08:48 Dose: 2 cap Lamotrigine (Lamotrigine 25 Mg Tab) 25 mg PO QAM [facility] Stop: 12/20/22 08:59 Last Admin: 11/22/22 08:48 Dose: 25 mg Prednisone (Prednisone 20 Mg Tab) 40 mg PO DAILY [facility] Stop: 11/24/22 09:01 Last Admin: 11/22/22 08:49 Dose: 40 mg Risperidone (Risperidone 0.5 Mg Tablet) 0.5 mg PO BID [facility] Stop: 12/19/22 21:32 Last Admin: 11/22/22 21:20 Dose: 0.5 mg Sertraline HCl (Sertraline Hcl 50 Mg Tablet) 75 mg PO QAM [facility] Stop: 12/20/22 08:59 Last Admin: 11/22/22 08:49 Dose: 75 mg Tramadol HCl (Tramadol Hcl 50 Mg Tablet) 50 mg PO Q8 PRN PRN Reason: Pain Stop: 12/19/22 21:32 Vibegron (Vibegron 75 Mg Tab) 75 mg PO DAILY [facility] Stop: 12/20/22 08:59 Last Admin: 11/22/22 08:49 Dose: 75 mg
[2022-11-23 08:00] LABS: BUN Creatinine Ratio 41.3 (10-20); Calcium 10.1 mg/dl (8.6-10.3); Creatinine Clr Calc Pharmacy 53.4 ml/min; Est GFR (African American) 77.4 ml/min; Est GFR (Non-African American) 66.8 ml/min; Magnesium 2.1 mg/dl (1.7-2.4); Phosphorus 1.9 mg/dl (2.5-4.9)
[2022-11-23] MEDS: SERTRALINE HCL 50 MG TABLET PO SCH (09:10)
[2022-11-23] MEDS: predniSONE 20 MG TAB PO SCH (09:10)
[2022-11-23] MEDS: FOLIC ACID 1 MG TAB PO SCH (09:10)
[2022-11-23] MEDS: AZITHROMYCIN 250 MG TAB PO SCH (09:11)
[2022-11-23] MEDS: ADVANCED PROBIOTIC 1250 MG CAPSULE PO SCH (09:11)
[2022-11-23] MEDS: risperiDONE 0.5 MG TABLET PO SCH ×2 (09:11→21:19)
[2022-11-23] MEDS: VIBEGRON 75 MG TAB PO SCH (09:11)
[2022-11-23] MEDS: lamoTRIgine 25 MG TAB PO SCH (09:11)
[2022-11-23] MEDS: CYANOCOBALAMIN (B-12) 500 MCG TABLET PO SCH (09:12)
[2022-11-23] MEDS: guaiFENesin 600 MG TABCR PO SCH ×2 (09:12→21:19)
[2022-11-23] MEDS ORDERED: FUROSEMIDE INJ 20 MG/2 ML VIAL IV ONE (14:38)
--- NOTE | 2022-11-23 15:57 | XRay Report ---
XR chest 1V portable CLINICAL HISTORY: follow up COMPARISON STUDY: Chest CT April 17, 2021. Chest radiograph November 19, 2022. FINDINGS: There is no pneumothorax. A trace left pleural effusion is present. Mild left basilar opaci ty favors atelectasis. There is no consolidation to suggest pneumonia. Cardiomegaly is again noted. P ulmonary edema has improved. IMPRESSION: 1. Cardiomegaly. Interval improvement in pulmonary edema. 2. Trace left pleural effusion. 3. Mild left basilar opacity which favors atelectasis. ACT 112: Negative or not required by law. Electronically signed by: Heraclio Suarez M.D. 11/23/2022 3:55 PM
[2022-11-23] MEDS: ENOXAPARIN INJ 40 MG/0.4 ML SYR SQ SCH (21:20)
[2022-11-24] MEDS: AZTREONAM 1,000 MG in DEXTROSE 5% MINI-B 100 ML IV SCH (05:29)
[2022-11-24] MEDS: ALBUT/IPRATROP 3MG/0.5MG NEB 3 ML VIAL NEB SCH ×3 (07:06→15:10)
[2022-11-24] MEDS ORDERED: FUROSEMIDE INJ 20 MG/2 ML VIAL IV ONE (07:45)
[2022-11-24] MEDS: VIBEGRON 75 MG TAB PO SCH (08:41)
[2022-11-24] MEDS: lamoTRIgine 25 MG TAB PO SCH (08:41)
[2022-11-24] MEDS: DONEPEZIL HCL 5 MG TAB PO SCH (08:41)
[2022-11-24] MEDS: predniSONE 20 MG TAB PO SCH (08:41)
[2022-11-24] MEDS: guaiFENesin 600 MG TABCR PO SCH (08:41)
[2022-11-24] MEDS: SERTRALINE HCL 50 MG TABLET PO SCH (08:41)
[2022-11-24] MEDS: risperiDONE 0.5 MG TABLET PO SCH (08:41)
[2022-11-24] MEDS: ADVANCED PROBIOTIC 1250 MG CAPSULE PO SCH (08:42)
[2022-11-24] MEDS: FOLIC ACID 1 MG TAB PO SCH (08:42)
[2022-11-24] MEDS: CYANOCOBALAMIN (B-12) 500 MCG TABLET PO SCH (08:42)
--- NOTE | 2022-11-24 15:38 | Discharge Summary ---
Date of Service November 24, 2022 Admission HPI Per Admitting Provider 87-year-old female with PMH COPD, PVD, HTN, mitral valve stenosis, GERD, overactive bladder s/p stimulator, left renal mass, depression, bipolar disorder, and other problems listed below who presents to the ED for evaluation of generalized weakness. History is obtained from the patient and review of outpatient PCP records. Patient states that she started to feel generally weak a few days ago. Today, she was barely able to stand. She was seen by PCP on 11/15 and reported dysuria, was started empirically on Macrobid. Urine culture is pending. Patient states improvement in dysuria since starting Macrobid. She also reports slightly worsening shortness of breath, has chronic productive cough that is unchanged from baseline. Patient reports she quit smoking 4 days ago. She denies chest pain. No fevers or chills. Denies abdominal pain, nausea, vomiting, diarrhea. In the ED, patient was mildly hypoxic on room air 88%. Currently saturating well on 2 L of oxygen. Labs show WBC 12 K, K+ 3.4, HS troponin 17.3, proBNP 156. UA suggestive of possible UTI. CXR shows mild pulmonary edema. In the ED, patient received IV Cipro and IVF. Admission Exam Per Admitting Provider Mild respiratory distress, on NC 1L Lung: good air entry b/l but diffuse wheezing with possible mild crackles at the bases Cardiac: normal S1/S2, no murmur Abd: soft, NT MSK: no LE edema Psych: AAOX3, normal affect Principal Diagnosis weakness, UTI, copd exacerb., hypoxia Discharge Exam General: WD/WN elderly F in NAD, on suppl. O2 Lung: good air entry , CTAB Cardiac: normal S1/S2, no murmur Abd: soft, NT, + bowel sounds MSK: no LE edema Neuro/Psych: AAOX3, normal affect, speech fluent, no facial asymmetry, moves extremities, appears tired though Discharge Data Allergies Allergy/AdvReac Type Severity Reaction Status Date / Time ceftriaxone Allergy Intermediate hives Verified 10/06/22 20:25 Iodinated Contrast Media Allergy Intermediate pruritus Verified 10/06/22 20:25 (feet) Penicillins Allergy Intermediate hives Verified 10/06/22 20:25 cisapride AdvReac Intermediate GI symptoms Verified 10/06/22 20:25 solifenacin AdvReac Intermediate blurred Verified 10/06/22 20:25 vision Consultations 11/19/22 18:32 ED Decision to Admit Stat Ordered Studies 11/19/22 15:50 CT head/brain wo con Stat FINDINGS: No acute intracranial hemorrhage, midline shift or mass effect is present. The ventricular system is unremarkable. The basal cisterns are patent. No extra-axial collections are present. There are no findings to suggest acute dural sinus thrombosis or acute territorial infarct. 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 White matter hypodensities are unchanged. A 1.1 cm right parotid nodule is similar to CT of June 08, 2021. IMPRESSION: No acute intracranial findings. No change in appearance of the brain. Hospital Course (1) Hypoxia: (2) COPD exacerbation: (3) Pulmonary edema: Patient presenting from home with reports of generalized weakness. In the ED, found to be mildly hypoxic on room air at 88%. Currently saturating well on 2 L of oxygen via nasal cannula. Noted to have wheezing on exam and CXR showing mild pulmonary edema. Due to allergy profile, patient empirically started on aztreonam and azithromycin Influenza, COVID, RSV testing negative, bio fire - negative Prednisone 40 mg daily x 5 days Pulmonary toilet with nebs, Mucinex, incentive sponsor, flutter valve - Pt also plans to have sleep study done in December 03 - Pt's respiratory status much improved - she finished antibiotics and prednisone. 2 step was obtained and pt did not qualify for suppl. O2. plan to discharge home, and follow up closely w/ outpt providers. Mildly elevated HS troponin 17.3 -likely demand ischemia -EKG: No ST changes, no reports of chest pain - Echo 04/2022 -EF 55 to 59%, mild aortic regurgitation, severe mitral calcification with moderate mitral stenosis, mild tricuspid regurgitation, mild pulmonary hypertension - trended down - if any further concern, will obtain echocardiogram and will discuss w/ cardiology (4) UTI (urinary tract infection): Seen by PCP on 11/15 and empirically started on Macrobid for suspected UTI, UA not obtained, outpatient urine culture pending UA on admission with leukocyte esterase and bacteria however > 30 epithelial cells On aztreonam as above urine culture - high counts mixed elieser - likely skin elieser ?Bacteremia Coag negat. staph not lugdunensis x2 - discussed w/ ID - likely contaminant Repeat blood culture ordered - one of them again coag. negat. staph -started empiric vancomycin - stopped now as likely contaminant - follow final cultx results (5) Weakness: Multifactorial due to above acute issues PT/OT evals - obtained - recommend return home, HH arranged by CM (6) OAB (overactive bladder): Chronic, stable, s/p nerve stimulator (7) Depression: (8) Bipolar disorder: Chronic, stable Continue home meds (9) Renal mass, left: Following with urology, currently under observation Total Time Total Time Spent Total Time Spent (In Minutes): 40 Discharge Plan Discharge Items Patient Disposition: Home - Home Health Services Reason For Visit: WEAKNESS, UTI Discharge Diagnosis: weakness, UTI, copd exacerb., hypoxia Activity: Per Instructions section Non-emergency contact: Primary Care Provider Call non-emergency contact if: you have any medication questions and your symptoms worsen Follow-up/Referrals: Devi Luna DO [Primary Care Provider] - 11/27/22 12:10 pm (Date & Time 11/27/2022 12:10 PM Provider Devi Luna DO Department Family Medicine [facility] ) Diet: Regular Addtl Attending Provider Instructions: Follow up with primary care physician within 1 week. The appointment with primary care doctor was scheduled for you for November 27. Also, follow up with your sleep study, as already scheduled in November. Recommend taking guaifenesin for next few days. Pending Studies at Discharge: Yes Studies:: final blood cultx Stand-Alone Forms: [facility], Smoking Cessation Medications and DC Order Prescriptions: New guaifenesin [Mucinex] 600 mg Tablet Extended Release 12hr 600 mg PO Q12 5 Days Qty: 10 0RF Continued multivitamin Tablet 1 tab PO DAILY donepezil 5 mg tablet 5 mg PO QDB cyanocobalamin (vitamin B-12) [Vitamin B-12] 1,000 mcg Tablet 1,000 mcg PO DAILY tramadol 50 mg tablet 50 mg PO Q8 PRN (Reason: Pain) lamotrigine 25 mg tablet 25 mg PO QAM Claritin-D 24 Hour 10-240 mg Tablet Extended Release 24 Hr 1 tab PO DAILY PRN (Reason: ALLERGIES) sertraline 50 mg tablet 75 mg PO QAM Myrbetriq 50 mg tablet extended release 24 hr 50 mg PO QAM risperidone 0.5 mg tablet 0.5 mg PO BID Prevagen 1 tab PO DAILY folic acid 1 mg Tablet 1 mg PO QAM Qty: 30 0RF nystatin-triamcinolone 100,000-0.1 unit/g-% cream 1 applic TOPICAL TID Rx Instructions: apply to vagina nitrofurantoin monohyd/m-cryst 100 mg capsule 100 mg PO [facility] Rx Instructions: take for 7 days ordered 11/15/22 Discharge Orders: Discharge Order (Routine); Ordered 11/24/22 Ordered By: Ray Sorensen Admission Data Admit Date/Time: 11/20/22 16:08 Attending Provider: Ray Sorensen Admit Provider: Curt Alanis Primary Care Provider: Devi Luna Other Providers: Curt Alanis ; Tan Hu [facility]
== END 2022-11-24 16:33 | disposition home health service (06) | DRG 191 ==
LOC: ED 15:39 → EDINP 15:39 → SUATTDRO 19:32 → 2W 21:33

== ENCOUNTER 2023-01-04 04:31 | Inpatient (IN) ==
[2023-01-04] MEDS ORDERED: FUROSEMIDE INJ 20 MG/2 ML VIAL IV ONE (04:48)
--- NOTE | 2023-01-04 04:57 | Emergency Department Note ---
Impression & Plan Acute hypoxic respiratory failure, Pulmonary edema, Anemia, Elevated troponin ED Provider Note ED Provider Note NAME: HUBERT RODRIGUEZ AGE:87 SEX: Female : 1935 ARRIVES VIA: EMS INFORMANT: EMS ED PROVIDER(s): Clair Cordoba DO CHIEF COMPLAINT: Shortness of breath HPI: This is an 87-year-old female brought in by EMS due to acute respiratory distress. EMS reports called 911 after she woke him up complaining of trouble breathing. They state on their arrival patient was tachypneic with increased work of breathing, ashen in color, and initial pulse ox was 63. She was placed on oxygen via nonrebreather with some improvement of her oxygenation, and given DuoNeb treatment. Paramedics stated upon realizing she had additional lower extremity edema she was also given nitro for possible pulmonary edema. Patient continued to have increased work of breathing and hypoxia and she was transition to CPAP with improvement into the low 90s. Patient received a total of 2 DuoNebs in route. History from the patient is limited due to her dementia. She denies any pain, and states she does feel her breathing is easier at this time. PAST MEDICAL HISTORY:See Below PAST SURGICAL HISTORY:See Below FAMILY HISTORY:See Below SOCIAL HISTORY:See Below HOME MEDICATIONS:See Below ALLERGIES:See Below VITALS:See Below PHYSICAL EXAMINATION: GENERAL: alert, unwell appearing, well nourished, moderate distress, non-toxic, CPAP in place EYE EXAM: normal conjunctiva, PERRL and EOM's grossly intact OROPHARYNX: no exudate, no erythema, lips, buccal mucosa, and tongue normal and mucous membranes are moist NECK: supple, no nuchal rigidity, no adenopathy, non-tender LUNGS: Clear to auscultation. Normal chest wall mechanics, no wheezes, bilateral rales noted almost throughout, scattered rhonchi bilaterally additionally, tachypnea and increased work of breathing still noted HEART: no murmurs, S1 normal and S2 normal ABDOMEN: abdomen soft, non-tender, normo-active bowel sounds, no masses, no rebound or guarding. BACK: Back is symmetrical on inspection and there is no deformity, no midline tenderness, no CVA tenderness. SKIN: no rashes, petechiae, orbruising UPPER EXTREMITIES: upper extremities are grossly normal. FROM, nml pulses b/l. LOWER EXTREMITIES: No pitting edema. FROM, nml pulses b/l. NEURO EXAM: Pleasantly confused, cranial nerves II-XII grossly intact, normal speech, no facial droop,nogross weakness of arms, no gross weakness of legs. Gross sensation intact. No ataxia. Vital Signs: reviewed and remarkable Differential Diagnosis: URI, pneumonia, bronchitis, COPD/Asthma exacerbation, pneumothorax, pulmonary embolism, congestive heart failure, acute coronary syndrome, as well as others were considered MEDICAL DECISION MAKING: This is an 87-year-old female brought in by EMS due to acute onset shortness of breath. Patient found to be hypoxic and significant respiratory distress by EMS and was transitioned from supplemental oxygen via nonrebreather to CPAP in route and did have some improvement of her condition and was satting at 90% on arrival to the ER. Patient's other vital signs reassuring. She did have increased work of breathing and tachypnea yet and on auscultation had bilateral rales and scattered rhonchi. Patient unable to provide much history due to her dementia, denied any pain and did report feeling improved with the CPAP in place. She was transitioned to BiPAP upon arrival here. Labs drawn and sent, IV established, EKG and chest x-ray performed bedside interpreted by me and patient monitored on telemetry. Patient's family eventually arrived and I did speak with him extensively regarding the presentation the night as well as her other history. Patient does continue to smoke, does use home nebs, but does not wear home oxygen. Patient continued to have improvement of her symptoms here. After family reported an additional unwitnessed fall earlier this week, she was sent for CT head and cervical spine additionally which were negative. An ABG on the patient was also reassuring, no hypercapnia noted. Patient noted to have an elevated BNP and elevated troponin consistent with her presentation of acute pulmonary edema and likely CHF. Patient's FiO2 was able to be titrated down by respiratory therapy and patient continued to be well-appearing. Case discussed with [facility] hospitalist team for additional evaluation and management. Consultation(s): 0607: Discussed with Dr. Vasquez, [facility] hospitalist team, for additional evaluation and mgmt. ER Treatment Provided: See below 0500: Discussed with family now at bedside. They state patient does still smoke. She does use a nebulizer treatment 4 times daily, no home oxygen. Daughter states she did fall on Friday. was back in the bedroom and did not witness it however he stated she was laying on her left side when he found her. She does not know whether or not she struck her head or blacked out. He states he did not see any evidence of trauma on her after the fall. Patient does typically use a walker. Diagnostics Interpreted By Me: -ECG: Sinus tachycardia at 121, normal axis, normal intervals, nonspecific ST/T wave changes -Cardiac Monitoring: An order was placed for continuous cardiac monitoring. The monitor shows a rate of 114 with sinus tachycardia rhythm. -Laboratory studies: As stated above and show below. -Imaging studies: Chest x-ray: Bilateral pulmonary edema noted with small bilateral pleural effusions, no wide mediastinum, questionable evolving infiltrate noted in the right lower lobe Triage Nursing Note Reviewed Prior/Outside Records Reviewed -PCP office visit reviewed Critical Care: Critical care of 48 min performed to assess and manage high likelihood of life- threatening acute hypoxic respiratory failure, involving labs and imaging performed with assessment to evaluate acute hypoxic respiratory failure diagnosis with frequent reassessment. This time includes bedside time, treatment discussions with patient/family/consultants, documentation time and excludes procedure time. Past Med/Surg History Medical History OAB (overactive bladder) s/p nerve stimulator Bipolar disorder Osteoarthritis Degenerative disc disease Chronic back pain Depression GERD (gastroesophageal reflux disease) CKD (chronic kidney disease) stage 3, GFR 30-59 ml/min Hyperlipidemia Hypertension Surgical History History of arthroplasty of left knee H/O vaginal hysterectomy History of arthroplasty of right knee H/O bladder repair surgery "vaginal sling procedure for stress incontinence 11/2006 " History of carpal tunnel surgery "Right" History of appendectomy History of tonsillectomy and adenoidectomy Family History Father Family hx of colon cancer Brother Family history of diabetes mellitus Sister Family history of diabetes mellitus Social History Smoking Status: Current every day smoker Tobacco Type: Cigarettes Cigarettes Per Day: 7-9; Second Hand Exposure: No; Do You Dip or Chew Tobacco: No; Hx Alcohol Use: No Hx Substance Use: No Preferred Language: Burmese Communication Ability: Effective [place] [employer] Required: No Beliefs That Will Affect Care: None marital status: Current Living Situation: Spouse Feels Safe at Home: Yes Assistive Devices: Cane and Walker Allergies Allergies Allergy/AdvReac Type Severity Reaction Status Date / Time ceftriaxone Allergy Intermediate hives Verified 10/06/22 20:25 Iodinated Contrast Media Allergy Intermediate pruritus Verified 10/06/22 20:25 (feet) Penicillins Allergy Intermediate hives Verified 10/06/22 20:25 cisapride AdvReac Intermediate GI symptoms Verified 10/06/22 20:25 solifenacin AdvReac Intermediate blurred Verified 10/06/22 20:25 vision Home Meds Home Medications Medication Instructions Recorded Confirmed donepezil 5 mg tablet 5 mg PO DAILY 01/04/23 01/04/23 folic acid 1 mg tablet 1 mg PO DAILY 01/04/23 01/04/23 hydrochlorothiazide 12.5 mg capsule 12.5 mg PO DAILY 01/04/23 01/04/23 lamotrigine 25 mg tablet 25 mg PO DAILY 01/04/23 01/04/23 mirabegron 50 mg tablet,extended 50 mg PO DAILY 01/04/23 01/04/23 release 24 hr (Myrbetriq) risperidone 0.5 mg tablet 0.5 mg PO BID 01/04/23 01/04/23 sertraline 50 mg tablet 50 mg PO DAILY 01/04/23 01/04/23 tramadol 50 mg tablet 50 mg PO TID PRN Pain 01/04/23 01/04/23 Results & Data (ED) Vital Signs Vital Signs - 24 hr 01/04/23 04:28 01/04/23 04:30 01/04/23 04:38 Temperature Temperature Source Pulse Rate 118 H 117 H Pulse Rate [Left Finger] Pulse Rate from SpO2 Sensor 117 H Pulse Rhythm [Left Finger] Pulse Strength [Left Finger] Respiratory Rate 29 H 20 Respiratory Effort / Characteristics Spontaneous Respiratory Depth Respiratory Pattern Tachypnea Blood Pressure 99/74 L Blood Pressure [Right Arm] Blood Pressure Mean 82 Blood Pressure Mean [Right Arm] Blood Pressure Position [Right Arm] Pulse Oximetry 92 98 Oxygen Delivery Method BiPAP Fraction of Inspired Oxygen 100 60 60 Sepsis Recent Fever Within 48 Hours Sepsis New/Unexplained Change in Mental Status Sepsis Action Taken by Nursing 01/04/23 04:39 01/04/23 04:42 01/04/23 04:52 Temperature 36.7 C Temperature Source Oral Pulse Rate 114 H 114 H 121 H Pulse Rate [Left Finger] Pulse Rate from SpO2 Sensor 114 H Pulse Rhythm [Left Finger] Pulse Strength [Left Finger] Respiratory Rate 21 27 H Respiratory Effort / Characteristics SOB on Exertion Respiratory Depth Respiratory Pattern Blood Pressure 112/62 122/65 Blood Pressure [Right Arm] Blood Pressure Mean 78 84 Blood Pressure Mean [Right Arm] Blood Pressure Position [Right Arm] Pulse Oximetry 97 91 Oxygen Delivery Method BiPAP CPAP Fraction of Inspired Oxygen 60 Sepsis Recent Fever Within 48 Hours No Sepsis New/Unexplained Change in Mental Status N/A Sepsis Action Taken by Nursing Physician Notified 01/04/23 05:04 01/04/23 05:30 01/04/23 05:45 Temperature Temperature Source Pulse Rate 107 H Pulse Rate [Left Finger] Pulse Rate from SpO2 Sensor 107 H Pulse Rhythm [Left Finger] Pulse Strength [Left Finger] Respiratory Rate 29 H Respiratory Effort / Characteristics Short of Breath Respiratory Depth Respiratory Pattern Blood Pressure 117/77 Blood Pressure [Right Arm] Blood Pressure Mean 90 Blood Pressure Mean [Right Arm] Blood Pressure Position [Right Arm] Pulse Oximetry 100 Oxygen Delivery Method BiPAP Fraction of Inspired Oxygen 60 40 Sepsis Recent Fever Within 48 Hours Sepsis New/Unexplained Change in Mental Status Sepsis Action Taken by Nursing 01/04/23 06:08 01/04/23 06:30 01/04/23 07:00 Temperature Temperature Source Pulse Rate 100 H 97 H Pulse Rate [Left Finger] 96 H Pulse Rate from SpO2 Sensor 99 H 98 H Pulse Rhythm [Left Finger] Regular Pulse Strength [Left Finger] Normal Respiratory Rate 21 18 18 Respiratory Effort / Characteristics Non-Labored Respiratory Depth Normal Respiratory Pattern Regular Blood Pressure 129/74 132/73 Blood Pressure [Right Arm] 116/81 Blood Pressure Mean 92 92 Blood Pressure Mean [Right Arm] 92 Blood Pressure Position [Right Arm] Lying Pulse Oximetry 95 95 96 Oxygen Delivery Method BiPAP BiPAP BiPAP Fraction of Inspired Oxygen 40 40 Sepsis Recent Fever Within 48 Hours Sepsis New/Unexplained Change in Mental Status Sepsis Action Taken by Nursing 01/04/23 08:38 Temperature Temperature Source Pulse Rate 100 H Pulse Rate [Left Finger] Pulse Rate from SpO2 Sensor Pulse Rhythm [Left Finger] Pulse Strength [Left Finger] Respiratory Rate Respiratory Effort / Characteristics Respiratory Depth Respiratory Pattern Blood Pressure Blood Pressure [Right Arm] Blood Pressure Mean Blood Pressure Mean [Right Arm] Blood Pressure Position [Right Arm] Pulse Oximetry Oxygen Delivery Method Fraction of Inspired Oxygen Sepsis Recent Fever Within 48 Hours Sepsis New/Unexplained Change in Mental Status Sepsis Action Taken by Nursing Laboratory Data 01/04/23 04:44 01/04/23 04:44 Lab Results 01/04/23 01/04/23 01/04/23 Range/Units 04:44 04:45 04:54 WBC 14.41 H (4.8-10.8) K/ul RBC 3.63 L (4.20-5.40) M/uL Hgb 10.7 L (12.0-16.0) g/dl POC Hgb 11.9 L (12.0-16.0) g/dl Hct 36.8 L (37.0-47.0) % POC Hct 35 L (37-47) % MCV 101.4 H (80.0-100.0) fL MCH 29.5 (25.0-34.0) pg MCHC 29.1 L (32.0-36.0) g/dL RDW Std Deviation 69.7 H (36.4-46.3) fL RDW Coeff of Ami 18.5 H (11.5-14.5) % Plt Count 237 (130-400) K/uL MPV 10.4 (9.4-12.4) fL Immature Gran % (Auto) 0.5 % Neut % (Auto) 86.7 % Lymph % (Auto) 9.2 % Victoria % (Auto) 3.1 % Eos % (Auto) 0.4 % Baso % (Auto) 0.1 % Neut # (Auto) 12.49 H (1.40-6.50) K/uL Lymph # (Auto) 1.33 (1.20-3.40) K/uL Victoria # (Auto) 0.44 (0.11-0.59) K/uL Eos # (Auto) 0.06 (0.00-0.50) K/uL Baso # (Auto) 0.02 (0.00-0.20) K/uL Immature Gran # (Auto) 0.07 (0.01-0.20) K/uL PT 10.9 (9.0-12.0) Seconds INR 1.0 (0.9-1.1) POC pH (7.35-7.45) POC pCO2 (35-46) mmHg POC pO2 (80-95) mmHg POC HCO3 (19-24) josefa/L POC Base Excess (-9-1.8) josefa/L POC ABG O2 Sat (90-95) % POC Sodium 139 (135-144) mmol/L Sodium 139 (136-145) mmol/L POC Potassium 3.3 (3.3-5.0) mmol/L Potassium 3.3 L (3.5-5.1) mmol/L POC Chloride 104 (101-112) mmol/L Chloride 105 (98-107) mmol/L Carbon Dioxide 27 (21-32) mmol/L POC Total CO2 25 (24-31) mmol/L Anion Gap 7 (3-11) POC Anion Gap 14.0 L (16-25) mmol/L POC BUN 16 (7-18) mg/dl BUN 18 (6-23) mg/dl Creatinine 0.98 (0.6-1.2) mg/dl POC Creatinine 0.9 (0.6-1.3) mg/dl Est Cr Clr Drug Dosing 40.6 ml/min Est GFR ( Amer) 60.5 ml/min Est GFR (Non-Af Amer) 52.2 ml/min BUN/Creatinine Ratio 18.4 (10-20) Glucose 146 H (70-99(Fasting)) mg/dl POC Glucose (other) 152 H (70-99) mg/dl Calcium 9.8 (8.6-10.3) mg/dl POC Ioniz Calcium Kunal 1.26 (1.12-1.32) mmol/l Magnesium 2.0 (1.7-2.4) mg/dl Total Bilirubin 0.4 (0.2-1.0) mg/dl AST 13 (13-39) U/L ALT 10 (7-52) U/L Alkaline Phosphatase 94 (34-104) U/L Troponin I High Sens 26.4 H (0-14) pg/ml B-Natriuretic Peptide 317 H (0-100) pg/ml Total Protein 6.7 (6.0-8.3) gm/dl Albumin 3.5 (3.4-5.0) gm/dl Globulin 3.2 (2.5-4.0) gm/dl Albumin/Globulin Ratio 1.1 (0.9-2) Lipase 5 L (11-82) U/L Procalcitonin 0.15 (0-0.5) ng/ml Adenovirus (PCR) Not Detected (NotDetected) B. pertussis DNA (PCR) Not Detected (NotDetected) B.parapertussis DNA PCR Not Detected (NotDetected) C. pneumoniae DNA (PCR) Not Detected (NotDetected) Coronavirus OC43 (PCR) Not Detected (NotDetected) Coronavirus HKU1 (PCR) Not Detected (NotDetected) Coronavirus 229E (PCR) Not Detected (NotDetected) SARS-CoV-2 (PCR) Not Detected (NotDetected) Coronavirus NL63 (PCR) Not Detected (NotDetected) Human Metapneumovir PCR Not Detected (NotDetected) Influenza Type A (PCR) Not Detected (NotDetected) Influenza Type B (PCR) Not Detected (NotDetected) M. pneumoniae (PCR) Not Detected (NotDetected) Parainfluenza 1 (PCR) Not Detected (NotDetected) Parainfluenza 2 (PCR) Not Detected (NotDetected) Parainfluenza 3 (PCR) Not Detected (NotDetected) Parainfluenza 4 (PCR) Not Detected (NotDetected) RSV (PCR) Not Detected (NotDetected) Entero/Rhino (PCR) Not Detected (NotDetected) 01/04/23 Range/Units 05:40 WBC (4.8-10.8) K/ul RBC (4.20-5.40) M/uL Hgb (12.0-16.0) g/dl POC Hgb 9.9 L (12.0-16.0) g/dl Hct (37.0-47.0) % POC Hct 29 L (37-47) % MCV (80.0-100.0) fL MCH (25.0-34.0) pg MCHC (32.0-36.0) g/dL RDW Std Deviation (36.4-46.3) fL RDW Coeff of Ami (11.5-14.5) % Plt Count (130-400) K/uL MPV (9.4-12.4) fL Immature Gran % (Auto) % Neut % (Auto) % Lymph % (Auto) % Victoria % (Auto) % Eos % (Auto) % Baso % (Auto) % Neut # (Auto) (1.40-6.50) K/uL Lymph # (Auto) (1.20-3.40) K/uL Victoria # (Auto) (0.11-0.59) K/uL Eos # (Auto) (0.00-0.50) K/uL Baso # (Auto) (0.00-0.20) K/uL Immature Gran # (Auto) (0.01-0.20) K/uL PT (9.0-12.0) Seconds INR (0.9-1.1) POC pH 7.37 (7.35-7.45) POC pCO2 43 (35-46) mmHg POC pO2 108 H (80-95) mmHg POC HCO3 25 H (19-24) josefa/L POC Base Excess -1.0 (-9-1.8) josefa/L POC ABG O2 Sat 98.0 H (90-95) % POC Sodium 138 (135-144) mmol/L Sodium (136-145) mmol/L POC Potassium 3.3 (3.3-5.0) mmol/L Potassium (3.5-5.1) mmol/L POC Chloride (101-112) mmol/L Chloride (98-107) mmol/L Carbon Dioxide (21-32) mmol/L POC Total CO2 26 (24-31) mmol/L Anion Gap (3-11) POC Anion Gap (16-25) mmol/L POC BUN (7-18) mg/dl BUN (6-23) mg/dl Creatinine (0.6-1.2) mg/dl POC Creatinine (0.6-1.3) mg/dl Est Cr Clr Drug Dosing ml/min Est GFR ( Amer) ml/min Est GFR (Non-Af Amer) ml/min BUN/Creatinine Ratio (10-20) Glucose (70-99(Fasting)) mg/dl POC Glucose (other) (70-99) mg/dl Calcium (8.6-10.3) mg/dl POC Ioniz Calcium Kunal (1.12-1.32) mmol/l Magnesium (1.7-2.4) mg/dl Total Bilirubin (0.2-1.0) mg/dl AST (13-39) U/L ALT (7-52) U/L Alkaline Phosphatase (34-104) U/L Troponin I High Sens (0-14) pg/ml B-Natriuretic Peptide (0-100) pg/ml Total Protein (6.0-8.3) gm/dl Albumin (3.4-5.0) gm/dl Globulin (2.5-4.0) gm/dl Albumin/Globulin Ratio (0.9-2) Lipase (11-82) U/L Procalcitonin (0-0.5) ng/ml Adenovirus (PCR) (NotDetected) B. pertussis DNA (PCR) (NotDetected) B.parapertussis DNA PCR (NotDetected) C. pneumoniae DNA (PCR) (NotDetected) Coronavirus OC43 (PCR) (NotDetected) Coronavirus HKU1 (PCR) (NotDetected) Coronavirus 229E (PCR) (NotDetected) SARS-CoV-2 (PCR) (NotDetected) Coronavirus NL63 (PCR) (NotDetected) Human Metapneumovir PCR (NotDetected) Influenza Type A (PCR) (NotDetected) Influenza Type B (PCR) (NotDetected) M. pneumoniae (PCR) (NotDetected) Parainfluenza 1 (PCR) (NotDetected) Parainfluenza 2 (PCR) (NotDetected) Parainfluenza 3 (PCR) (NotDetected) Parainfluenza 4 (PCR) (NotDetected) RSV (PCR) (NotDetected) Entero/Rhino (PCR) (NotDetected) Administered Medications Discontinued Medications Furosemide (Furosemide Inj 20 Mg/2 Ml Vial) 20 mg IV ONE ONE Stop: 01/04/23 04:49 Last Admin: 01/04/23 05:30 Dose: 20 mg Documented By: SES Imaging Data Radiologist's Impression: Chest X-Ray 01/04/23 04:33 XR chest 1V portable CLINICAL HISTORY: Shortness of breath. COMPARISON STUDY: Chest CT April 17, 2021. Radiograph November 23, 2022. FINDINGS: There is no pneumothorax. Moderate cardiomegaly is unchanged. There is pulmonary vascular congestion. Mild bibasilar opacities are present. No definite pleural effusions are present. IMPRESSION: 1. Cardiomegaly with pulmonary vascular congestion. 2. Bibasilar opacities which likely reflect atelectasis. An infectious process could appear similar. ACT 112: Negative or not required by law. Electronically signed by: Heraclio Suarez M.D. 01/04/2023 6:[address] 01/04/23 05:28 CT OF THE CERVICAL SPINE WITHOUT CONTRAST CLINICAL HISTORY: trauma COMPARISON STUDY: Cervical spine CT March 07, 2020. TECHNIQUE: Helical axial images of the cervical spine were obtained without IV contrast. Sagittal and coronal reconstructions were viewed. Automated exposure control was utilized for the study. A dose lowering technique was utilized adhering to the principles of ALARA. FINDINGS: Alignment of the cervical spine is anatomic. Vertebral body heights are maintained. No acute cervical spine fracture or subluxation is present. There is no prevertebral edema. Facet joints are intact. Severe multilevel facet arthrosis is present. There is moderate multilevel degenerative disc disease. A focal defect within the right posterior arch of C1 is unchanged. The appearance of the cervical spine is unchanged. IMPRESSION: No acute cervical spine fracture or subluxation. ACT 112: Negative or not required by law. Electronically signed by: Heraclio Suarez M.D. 01/04/2023 6:[address] 01/04/23 05:28 CT OF THE HEAD WITHOUT CONTRAST CLINICAL HISTORY: trauma COMPARISON STUDY: Head CT November 19, 2022. TECHNIQUE: Helical axial images of the head were obtained without IV contrast. Automated exposure control was utilized for the study. A dose lowering technique was utilized adhering to the principles of ALARA. FINDINGS: No acute intracranial hemorrhage, midline shift or mass effect is present. The ventricular system is stable. White matter hypodensities are unchanged. 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 There has been no change in appearance of the brain. The basal cisterns are patent. No extra-axial collections are present. There are no findings to suggest acute dural sinus thrombosis or acute territorial infarct. No significant calvarial abnormalities are present. Visualized portions of the sinuses and mastoid air cells are clear. A 1 cm right parotid nodule is again noted. IMPRESSION: 1. No acute intracranial findings. No change in appearance of the brain. 2. No calvarial fracture. ACT 112: Negative or not required by law. Electronically signed by: Heraclio Suarez M.D. 01/04/2023 6:34 AM Discharge Plan Visit Data Chief Complaint: Respiratory Distress Stated Complaint: SOB ED Provider: Clair Cordoba Discharge Problem: Acute hypoxic respiratory failure, Pulmonary edema, Anemia, Elevated troponin Forms Stand Alone Forms: [facility] Prescriptions Prescriptions: No Action donepezil 5 mg tablet 5 mg PO DAILY tramadol 50 mg tablet 50 mg PO TID PRN (Reason: Pain) lamotrigine 25 mg tablet 25 mg PO DAILY hydrochlorothiazide 12.5 mg capsule 12.5 mg PO DAILY folic acid 1 mg tablet 1 mg PO DAILY sertraline 50 mg tablet 50 mg PO DAILY risperidone 0.5 mg tablet 0.5 mg PO BID Myrbetriq 50 mg tablet extended release 24 hr 50 mg PO DAILY Referrals Referrals: Devi Luna DO [Primary Care Provider] -
[2023-01-04 05:06] LABS: iSTAT Creatinine 0.9 mg/dl (0.6-1.3); iSTAT Hemoglobin 11.9 g/dl (12.0-16.0); iSTAT Ionized Calcium 1.26 mmol/l (1.12-1.32); iSTAT Potassium 3.3 mmol/L (3.3-5.0)
[2023-01-04 05:12] LABS: Basophils # (auto) 0.02 K/uL (0.00-0.20); Basophils % (auto) 0.1 %; Eosinophils # (auto) 0.06 K/uL (0.00-0.50); Eosinophils % (auto) 0.4 %; Hematocrit (blood only) 36.8 % (37.0-47.0); Hemoglobin 10.7 g/dl (12.0-16.0); Immature Granulocytes # (auto) 0.07 K/uL (0.01-0.20); Immature Granulocytes % (auto) 0.5 %; Lymphocytes # (auto) 1.33 K/uL (1.20-3.40); Lymphocytes % (auto) 9.2 %; Mean Corpuscular Hemoglobin 29.5 pg (25.0-34.0); Mean Corpuscular Hgb Conc 29.1 g/dL (32.0-36.0); Mean Corpuscular Volume 101.4 fL (80.0-100.0); Mean Platelet Volume 10.4 fL (9.4-12.4); Monocytes # (auto) 0.44 K/uL (0.11-0.59); Monocytes % (auto) 3.1 %; Neutrophils # (auto) 12.49 K/uL (1.40-6.50); Neutrophils % (auto) 86.7 %; Platelet Count 237 K/uL (130-400); RDW Coefficient of Variation 18.5 % (11.5-14.5); RDW Standard Deviation 69.7 fL (36.4-46.3); Red Blood Count 3.63 M/uL (4.20-5.40); White Blood Count 14.41 K/ul (4.8-10.8)
[2023-01-04 05:24] LABS: Albumin Globulin Ratio 1.1 (0.9-2); Albumin Level 3.5 gm/dl (3.4-5.0); BUN Creatinine Ratio 18.4 (10-20); Bilirubin,Total 0.4 mg/dl (0.2-1.0); Calcium 9.8 mg/dl (8.6-10.3); Creatinine Clr Calc Pharmacy 40.6 ml/min; Est GFR (African American) 60.5 ml/min; Est GFR (Non-African American) 52.2 ml/min; Globulin 3.2 gm/dl (2.5-4.0); Potassium 3.3 mmol/L (3.5-5.1); Total Protein 6.7 gm/dl (6.0-8.3)
[2023-01-04 05:39] LABS: Prothrombin Time 10.9 Seconds (9.0-12.0)
[2023-01-04 05:40] LABS: Troponin I High Sensitivity 26.4 pg/ml (0-14)
[2023-01-04 05:54] LABS: iSTAT Arterial Blood Gas HCO3 25 meg/L (19-24); iSTAT Arterial Blood Gas pCO2 43 mmHg (35-46); iSTAT Arterial Blood Gas pH 7.37 (7.35-7.45); iSTAT Arterial Blood Gas pO2 108 mmHg (80-95); iSTAT Carbon Dioxide 26 mmol/L (24-31); iSTAT Hematocrit 29 % (37-47); iSTAT Hemoglobin 9.9 g/dl (12.0-16.0); iSTAT Potassium 3.3 mmol/L (3.3-5.0); iSTAT Sodium 138 mmol/L (135-144)
[2023-01-04 05:54] LABS: Adenovirus PCR Not Detected (NotDetected); Bordetella parapertussis PCR Not Detected (NotDetected); Bordetella pertussis PCR Not Detected (NotDetected); Chlamydia pneumoniae PCR Not Detected (NotDetected); Coronavirus 229E PCR Not Detected (NotDetected); Coronavirus CoV-2 (COVID19)PCR Not Detected (NotDetected); Coronavirus HKU1 PCR Not Detected (NotDetected); Coronavirus NL63 PCR Not Detected (NotDetected); Coronavirus OC43PCR Not Detected (NotDetected); Human Metapneumovirus PCR Not Detected (NotDetected); Influenza A PCR Not Detected (NotDetected); Influenza B PCR Not Detected (NotDetected); Mycoplasma pneumoniae PCR Not Detected (NotDetected); Parainfluenza Virus 1 PCR Not Detected (NotDetected); Parainfluenza Virus 2 PCR Not Detected (NotDetected); Parainfluenza Virus 3 PCR Not Detected (NotDetected); Parainfluenza Virus 4 PCR Not Detected (NotDetected); Respiratory Syncytial VirusPCR Not Detected (NotDetected); Rhinovirus/Enterovirus PCR Not Detected (NotDetected)
--- NOTE | 2023-01-04 06:36 | CT Scan Report ---
CT OF THE HEAD WITHOUT CONTRAST CLINICAL HISTORY: trauma COMPARISON STUDY: Head CT November 19, 2022. TECHNIQUE: Helical axial images of the head were obtained without IV contrast. Automated exposure con trol was utilized for the study. A dose lowering technique was utilized adhering to the principles o f ALARA. FINDINGS: No acute intracranial hemorrhage, midline shift or mass effect is present. The ventricular system is stable. White matter hypodensities are unchanged. Old infarcts within the bilateral cerebel lar hemispheres and left basal ganglia infarct are unchanged. There has been no change in appearance of the brain. The basal cisterns are patent. No extra-axial collections are present. There are no fin dings to suggest acute dural sinus thrombosis or acute territorial infarct. No significant calvarial abnormalities are present. Visualized portions of the sinuses and mastoid air cells are clear. A 1 cm right parotid nodule is again noted. IMPRESSION: 1. No acute intracranial findings. No change in appearance of the brain. 2. No calvarial fracture. ACT 112: Negative or not required by law. Electronically signed by: Heraclio Suarez M.D. 01/04/2023 6:34 AM
--- NOTE | 2023-01-04 06:47 | CT Scan Report ---
CT OF THE CERVICAL SPINE WITHOUT CONTRAST CLINICAL HISTORY: trauma COMPARISON STUDY: Cervical spine CT March 07, 2020. TECHNIQUE: Helical axial images of the cervical spine were obtained without IV contrast. Sagittal a nd coronal reconstructions were viewed. Automated exposure control was utilized for the study. A do se lowering technique was utilized adhering to the principles of ALARA. FINDINGS: Alignment of the cervical spine is anatomic. Vertebral body heights are maintained. No acut e cervical spine fracture or subluxation is present. There is no prevertebral edema. Facet joints are intact. Severe multilevel facet arthrosis is present. There is moderate multilevel degenerative dis c disease. A focal defect within the right posterior arch of C1 is unchanged. The appearance of the c ervical spine is unchanged. IMPRESSION: No acute cervical spine fracture or subluxation. ACT 112: Negative or not required by law. Electronically signed by: Heraclio Suarez M.D. 01/04/2023 6:45 AM
--- NOTE | 2023-01-04 06:53 | XRay Report ---
XR chest 1V portable CLINICAL HISTORY: Shortness of breath. COMPARISON STUDY: Chest CT April 17, 2021. Radiograph November 23, 2022. FINDINGS: There is no pneumothorax. Moderate cardiomegaly is unchanged. There is pulmonary vascular c ongestion. Mild bibasilar opacities are present. No definite pleural effusions are present. IMPRESSION: 1. Cardiomegaly with pulmonary vascular congestion. 2. Bibasilar opacities which likely reflect atelectasis. An infectious process could appear similar. ACT 112: Negative or not required by law. Electronically signed by: Heraclio Suarez M.D. 01/04/2023 6:52 AM
[2023-01-04] MEDS ORDERED: POTASSIUM CHLORIDE 20 MEQ/15 ML UDC PO STA (08:10)
[2023-01-04] MEDS ORDERED: FUROSEMIDE 40 MG/4 ML VIAL IV STA (08:10)
[2023-01-04] MEDS ORDERED: cefTRIAXone SODIUM 2,000 MG in DEXTROSE 5 % MINI-B 50 ML IV SCH (08:15)
--- NOTE | 2023-01-04 08:39 | History & Physical Report ---
Date of Service January 04, 2023 Assessment & Plan (1) Acute hypoxic respiratory failure: Plan: 87-year-old female with past medical significant for COPD, allergic rhinitis, mucopurulent chronic bronchitis, peripheral vascular disease, mild pulmonary hypertension, hypertension, moderate mitral valve stenosis, nonrheumatic aortic valve insufficiency, B12 deficiency, slow transit constipation, esophageal dysmotility, GERD, urinary incontinence, CKD stage III, history of renal mass, moderate late-onset Alzheimer's dementia with agitation, iron deficiency anemia, bipolar 2 disorder, mild depression, lives at home with her was brought in because of respiratory distress. Respiratory distress Acute hypoxic respiratory failure ABG okay Mostly from acute CHF Possible underlying pneumonia ER gave IV Lasix 20 mg We will continue with IV Lasix 40 mg twice daily Daily weights , I's and O's Follow cardiac enzymes and echo Empiric IV Invanz and Doxy for possible pneumonia Continue BiPAP for now Close monitoring telemetry cardiology consult for further recommendations History of COPD ongoing tobacco abuse Continue home inhalers No obvious wheezing on exam Will place on nebs for now and monitor CKD stage III Presented with creatinine 0.9 We will follow the labs. Hypokalemia We will replace Follow labs History of left renal mass 2.8 cm Under observation by urology Anemia Hemoglobin 10.7 seems stable Under observation by heme-onc Bipolar disorder history of depression History of late onset Alzheimer's dementia with agitation Continue home meds of donezepil, Lamictal, risperidone and Zoloft We will monitor for any delirium Urinary incontinence Continue Myrbetriq DVT prophylaxis Lovenox Disposition telemetry floor CODE STATUS no intubation but okay for CPR as per discussion with the family History of Present Illness Chief Complaint: Respiratory distress Primary Care Provider: Devi Luna DO 87-year-old female with past medical significant for COPD, allergic rhinitis, mucopurulent chronic bronchitis, peripheral vascular disease, mild pulmonary hypertension, hypertension, moderate mitral valve stenosis, nonrheumatic aortic valve insufficiency, B12 deficiency, slow transit constipation, esophageal dysmotility, GERD, urinary incontinence, CKD stage III, history of renal mass, moderate late-onset Alzheimer's dementia with agitation, iron deficiency anemia, bipolar 2 disorder, mild depression, lives at home with her was brought in because of respiratory distress. She has chronic swelling in the legs but last few days the swelling has increased and she was prescribed hydrochlorothiazide yesterday. Apparently patient was doing okay. No complaint of shortness of breath or chest pain. No cough. No fevers. Normal bowel and bladder movements. Appetite is okay. And the middle of the night she woke up complaining of shortness of breath. She was sweating profusely. checked her oxygen sats and were in 60s and called EMS. For EMS also her oxygen sats were in 60s and she was placed on CPAP and brought to the hospital. C urrently on BiPAP saturating okay. Chest x-ray showed pulmonary congestion. Received dose of Lasix IV 20 mg in the ER. Patient is alert and awake. Can tell her name. Can tell her date of . Knows that she is in the hospital. Think this November but could tell the year. Patient states she is feeling better. Denies any chest pain. No abdominal pain. Patient currently smokes 3 to 4 cigarettes daily Past medical history. As mentioned above. Past surgical history. Bilateral total knee arthroplasty. Carpal tunnel surgery. No current catheterization. Colonoscopy. EGD. Flexible sigmoidoscopy. Hemorrhoidectomy. Implantation of neurostimulator. Appendectomy, tonsillectomy, cataract surgery, repair of bladder and vaginal cystocele, repair of bladder defect, vaginal hysterectomy. Social history. . Smokes 3 to 4 cigarettes daily. No alcohol use. No drug use. Family history. Father had cancer. Heart disorder. Mother had cancer. Renal failure. Sister had breast cancer. Allergies Allergy/AdvReac Type Severity Reaction Status Date / Time ceftriaxone Allergy Intermediate hives Verified 10/06/22 20:25 Iodinated Contrast Media Allergy Intermediate pruritus Verified 10/06/22 20:25 (feet) Penicillins Allergy Intermediate hives Verified 10/06/22 20:25 cisapride AdvReac Intermediate GI symptoms Verified 10/06/22 20:25 solifenacin AdvReac Intermediate blurred Verified 10/06/22 20:25 vision Home Medications Medication Instructions Recorded Confirmed Type donepezil 5 mg tablet 5 mg PO DAILY 01/04/23 01/04/23 History folic acid 1 mg tablet 1 mg PO DAILY 01/04/23 01/04/23 History hydrochlorothiazide 12.5 mg capsule 12.5 mg PO DAILY 01/04/23 01/04/23 History lamotrigine 25 mg tablet 25 mg PO DAILY 01/04/23 01/04/23 History mirabegron 50 mg tablet,extended 50 mg PO DAILY 01/04/23 01/04/23 History release 24 hr (Myrbetriq) risperidone 0.5 mg tablet 0.5 mg PO BID 01/04/23 01/04/23 History sertraline 50 mg tablet 50 mg PO DAILY 01/04/23 01/04/23 History tramadol 50 mg tablet 50 mg PO TID PRN Pain 01/04/23 01/04/23 History Past Med/Surg History Medical History Bipolar disorder Chronic back pain CKD (chronic kidney disease) stage 3, GFR 30-59 ml/min Degenerative disc disease Depression GERD (gastroesophageal reflux disease) Hyperlipidemia Hypertension OAB (overactive bladder) s/p nerve stimulator Osteoarthritis Surgical History H/O bladder repair surgery "vaginal sling procedure for stress incontinence 11/2006 " H/O vaginal hysterectomy History of appendectomy History of arthroplasty of left knee History of arthroplasty of right knee History of carpal tunnel surgery "Right" History of tonsillectomy and adenoidectomy Family History Father Family hx of colon cancer Brother Family history of diabetes mellitus Sister Family history of diabetes mellitus Social History Smoking Status: Current every day smoker Tobacco Type: Cigarettes Cigarettes Per Day: 7-9; Second Hand Exposure: No; Do You Dip or Chew Tobacco: No; Hx Alcohol Use: No Hx Substance Use: No Preferred Language: Turkmen Communication Ability: Effective Nitro Man Required: No Beliefs That Will Affect Care: None marital status: Current Living Situation: Spouse Feels Safe at Home: Yes Assistive Devices: Cane and Walker Review of Systems Review of Systems: All systems reviewed & are unremarkable except as noted in HPI & below Physical Exam Physical Exam: General- Currently not in distress Head- atraumatic Eyes- PERRL. Neck- supple, no JVD. Lungs- clear to auscultation bibasilar crackles heard. No wheezing heard. Heart- regular rhythm; no murmur, no gallop. Abdomen- normal bowel sounds, soft, nontender, no distension Extremities- b/l lower extremity +2 edema present. No erythema seen. Neuro- alert, oriented ; PERRL, ; no facial palsy; no dysarthria; Skin- warm & dry Results & Data Results & Data Vital Signs (Past 12 Hours) Vital Signs Temp Pulse Pulse Resp BP BP Pulse Ox 01/04/23 08:38 100 H 01/04/23 07:00 96 H 18 116/81 96 01/04/23 06:30 97 H 18 132/73 95 01/04/23 06:08 100 H 21 129/74 95 01/04/23 05:45 01/04/23 05:30 107 H 29 H 117/77 100 01/04/23 04:52 36.7 C 121 H 27 H 122/65 91 01/04/23 04:42 114 H 21 112/62 97 01/04/23 04:39 114 H 01/04/23 04:38 01/04/23 04:30 117 H 20 99/74 L 98 01/04/23 04:28 118 H 29 H 92 O2 Del Method FiO2 01/04/23 08:38 01/04/23 07:00 BiPAP 01/04/23 06:30 BiPAP 40 01/04/23 06:08 BiPAP 40 01/04/23 05:45 40 01/04/23 05:30 BiPAP 60 01/04/23 04:52 CPAP 01/04/23 04:42 BiPAP 60 01/04/23 04:39 01/04/23 04:38 60 01/04/23 04:30 BiPAP 60 01/04/23 04:28 100 Diagnostic Findings Laboratory Results WBC 14.41 K/ul (4.8-10.8) H 01/04/23 04:44 RBC 3.63 M/uL (4.20-5.40) L 01/04/23 04:44 Hgb 10.7 g/dl (12.0-16.0) L 01/04/23 04:44 POC Hgb 9.9 g/dl (12.0-16.0) L 01/04/23 05:40 Hct 36.8 % (37.0-47.0) L 01/04/23 04:44 POC Hct 29 % (37-47) L 01/04/23 05:40 MCV 101.4 fL (80.0-100.0) H 01/04/23 04:44 MCH 29.5 pg (25.0-34.0) 01/04/23 04:44 MCHC 29.1 g/dL (32.0-36.0) L 01/04/23 04:44 RDW Std Deviation 69.7 fL (36.4-46.3) H 01/04/23 04:44 RDW Coeff of Ami 18.5 % (11.5-14.5) H 01/04/23 04:44 Plt Count 237 K/uL (130-400) 01/04/23 04:44 MPV 10.4 fL (9.4-12.4) 01/04/23 04:44 Immature Gran % (Auto) 0.5 % 01/04/23 04:44 Neut % (Auto) 86.7 % 01/04/23 04:44 Lymph % (Auto) 9.2 % 01/04/23 04:44 Preston % (Auto) 3.1 % 01/04/23 04:44 Eos % (Auto) 0.4 % 01/04/23 04:44 Baso % (Auto) 0.1 % 01/04/23 04:44 Neut # (Auto) 12.49 K/uL (1.40-6.50) H 01/04/23 04:44 Lymph # (Auto) 1.33 K/uL (1.20-3.40) 01/04/23 04:44 Preston # (Auto) 0.44 K/uL (0.11-0.59) 01/04/23 04:44 Eos # (Auto) 0.06 K/uL (0.00-0.50) 01/04/23 04:44 Baso # (Auto) 0.02 K/uL (0.00-0.20) 01/04/23 04:44 Immature Gran # (Auto) 0.07 K/uL (0.01-0.20) 01/04/23 04:44 PT 10.9 Seconds (9.0-12.0) 01/04/23 04:44 INR 1.0 (0.9-1.1) 01/04/23 04:44 POC pH 7.37 (7.35-7.45) 01/04/23 05:40 POC pCO2 43 mmHg (35-46) 01/04/23 05:40 POC pO2 108 mmHg (80-95) H 01/04/23 05:40 POC HCO3 25 josefa/L (19-24) H 01/04/23 05:40 POC Total CO2 26 mmol/L (24-31) 01/04/23 05:40 POC Base Excess -1.0 josefa/L (-9-1.8) 01/04/23 05:40 POC ABG O2 Sat 98.0 % (90-95) H 01/04/23 05:40 POC Sodium 138 mmol/L (135-144) 01/04/23 05:40 Sodium 139 mmol/L (136-145) 01/04/23 04:44 POC Potassium 3.3 mmol/L (3.3-5.0) 01/04/23 05:40 Potassium 3.3 mmol/L (3.5-5.1) L 01/04/23 04:44 POC Chloride 104 mmol/L (101-112) 01/04/23 04:54 Chloride 105 mmol/L (98-107) 01/04/23 04:44 Carbon Dioxide 27 mmol/L (21-32) 01/04/23 04:44 POC Total CO2 25 mmol/L (24-31) 01/04/23 04:54 Anion Gap 7 (3-11) 01/04/23 04:44 POC Anion Gap 14.0 mmol/L (16-25) L 01/04/23 04:54 POC BUN 16 mg/dl (7-18) 01/04/23 04:54 BUN 18 mg/dl (6-23) 01/04/23 04:44 Creatinine 0.98 mg/dl (0.6-1.2) 01/04/23 04:44 POC Creatinine 0.9 mg/dl (0.6-1.3) 01/04/23 04:54 Est Cr Clr Drug Dosing 40.6 ml/min 01/04/23 04:44 Est GFR ( Amer) 60.5 ml/min 01/04/23 04:44 Est GFR (Non-Af Amer) 52.2 ml/min 01/04/23 04:44 BUN/Creatinine Ratio 18.4 (10-20) 01/04/23 04:44 Glucose 146 mg/dl (70-99(Fasting)) H 01/04/23 04:44 POC Glucose (other) 152 mg/dl (70-99) H 01/04/23 04:54 Calcium 9.8 mg/dl (8.6-10.3) 01/04/23 04:44 POC Ioniz Calcium Kunal 1.26 mmol/l (1.12-1.32) 01/04/23 04:54 Magnesium 2.0 mg/dl (1.7-2.4) 01/04/23 04:44 Total Bilirubin 0.4 mg/dl (0.2-1.0) 01/04/23 04:44 AST 13 U/L (13-39) 01/04/23 04:44 ALT 10 U/L (7-52) 01/04/23 04:44 Alkaline Phosphatase 94 U/L (34-104) 01/04/23 04:44 Troponin I High Sens 26.4 pg/ml (0-14) H 01/04/23 04:44 B-Natriuretic Peptide 317 pg/ml (0-100) H 01/04/23 04:44 Total Protein 6.7 gm/dl (6.0-8.3) 01/04/23 04:44 Albumin 3.5 gm/dl (3.4-5.0) 01/04/23 04:44 Globulin 3.2 gm/dl (2.5-4.0) 01/04/23 04:44 Albumin/Globulin Ratio 1.1 (0.9-2) 01/04/23 04:44 Lipase 5 U/L (11-82) L 01/04/23 04:44 Procalcitonin 0.15 ng/ml (0-0.5) 01/04/23 04:44 Adenovirus (PCR) Not Detected (NotDetected) 01/04/23 04:45 B. pertussis DNA (PCR) Not Detected (NotDetected) 01/04/23 04:45 B.parapertussis DNA PCR Not Detected (NotDetected) 01/04/23 04:45 C. pneumoniae DNA (PCR) Not Detected (NotDetected) 01/04/23 04:45 Coronavirus OC43 (PCR) Not Detected (NotDetected) 01/04/23 04:45 Coronavirus HKU1 (PCR) Not Detected (NotDetected) 01/04/23 04:45 Coronavirus 229E (PCR) Not Detected (NotDetected) 01/04/23 04:45 SARS-CoV-2 (PCR) Not Detected (NotDetected) 01/04/23 04:45 Coronavirus NL63 (PCR) Not Detected (NotDetected) 01/04/23 04:45 Human Metapneumovir PCR Not Detected (NotDetected) 01/04/23 04:45 Influenza Type A (PCR) Not Detected (NotDetected) 01/04/23 04:45 Influenza Type B (PCR) Not Detected (NotDetected) 01/04/23 04:45 M. pneumoniae (PCR) Not Detected (NotDetected) 01/04/23 04:45 Parainfluenza 1 (PCR) Not Detected (NotDetected) 01/04/23 04:45 Parainfluenza 2 (PCR) Not Detected (NotDetected) 01/04/23 04:45 Parainfluenza 3 (PCR) Not Detected (NotDetected) 01/04/23 04:45 Parainfluenza 4 (PCR) Not Detected (NotDetected) 01/04/23 04:45 RSV (PCR) Not Detected (NotDetected) 01/04/23 04:45 Entero/Rhino (PCR) Not Detected (NotDetected) 01/04/23 04:45 Impressions Chest X-Ray 01/04/23 04:33 XR chest 1V portable CLINICAL HISTORY: Shortness of breath. COMPARISON STUDY: Chest CT April 17, 2021. Radiograph November 23, 2022. FINDINGS: There is no pneumothorax. Moderate cardiomegaly is unchanged. There is pulmonary vascular congestion. Mild bibasilar opacities are present. No definite pleural effusions are present. IMPRESSION: 1. Cardiomegaly with pulmonary vascular congestion. 2. Bibasilar opacities which likely reflect atelectasis. An infectious process could appear similar. ACT 112: Negative or not required by law. Electronically signed by: Heraclio Suarez M.D. 01/04/2023 6:[address] 01/04/23 05:28 CT OF THE CERVICAL SPINE WITHOUT CONTRAST CLINICAL HISTORY: trauma COMPARISON STUDY: Cervical spine CT March 07, 2020. TECHNIQUE: Helical axial images of the cervical spine were obtained without IV contrast. Sagittal and coronal reconstructions were viewed. Automated exposure control was utilized for the study. A dose lowering technique was utilized adhering to the principles of ALARA. FINDINGS: Alignment of the cervical spine is anatomic. Vertebral body heights are maintained. No acute cervical spine fracture or subluxation is present. There is no prevertebral edema. Facet joints are intact. Severe multilevel facet arthrosis is present. There is moderate multilevel degenerative disc disease. A focal defect within the right posterior arch of C1 is unchanged. The appearance of the cervical spine is unchanged. IMPRESSION: No acute cervical spine fracture or subluxation. ACT 112: Negative or not required by law. Electronically signed by: Heraclio Suarez M.D. 01/04/2023 6:[address] 01/04/23 05:28 CT OF THE HEAD WITHOUT CONTRAST CLINICAL HISTORY: trauma COMPARISON STUDY: Head CT November 19, 2022. TECHNIQUE: Helical axial images of the head were obtained without IV contrast. Automated exposure control was utilized for the study. A dose lowering jalen hnique was utilized adhering to the principles of ALARA. FINDINGS: No acute intracranial hemorrhage, midline shift or mass effect is present. The ventricular system is stable. White matter hypodensities are unchanged. 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 There has been no change in appearance of the brain. The basal cisterns are patent. No extra-axial collections are present. There are no findings to suggest acute dural sinus thrombosis or acute territorial infarct. No significant calvarial abnormalities are present. Visuali zed portions of the sinuses and mastoid air cells are clear. A 1 cm right parotid nodule is again noted. IMPRESSION: 1. No acute intracranial findings. No change in appearance of the brain. 2. No calvarial fracture. ACT 112: Negative or not required by law. Electronically signed by: Heraclio Suarez M.D. 01/04/2023 6:34 AM ECG Additional Comments: ECG. Sinus tachycardia at a rate of 121. T wave inversions in inferior leads Code Status & VTE Plan VTE Prophylaxis Plan VTE Prophylaxis will be ordered: Yes
[2023-01-04] MEDS: ERTAPENEM SODIUM 1,000 MG in SYRINGE 0 ML IV SCH (09:32)
[2023-01-04] MEDS ORDERED: traMADol HCL 50 MG TABLET PO PRN (09:36)
[2023-01-04] MEDS ORDERED: ACETAMINOPHEN 325 MG TAB PO PRN (09:36)
[2023-01-04] MEDS ORDERED: XOPENEX/ATROVENT 1.25mg/0.5MG NEB COMBO NEB SCH (09:36)
[2023-01-04] MEDS ORDERED: NITROGLYCERIN SL 0.4 MG/TAB TAB SL PRN (09:36)
[2023-01-04] MEDS: DOXYCYCLINE HYCLATE 100 MG in DEXTROSE 5% MINI-B 100 ML IV SCH ×2 (09:39→20:18)
--- NOTE | 2023-01-04 10:38 | Cardiology Consultation ---
Date of Consultation January 04, 2023 Assessment & Plan (1) CHF (congestive heart failure): -Patient with what would appear to perhaps be multifactorial shortness of breath with COPD and possibly superimposed congestive heart failure. Her initial troponin was mildly elevated at 4:44 AM at 26.4, a repeat level has recently been drawn and the results are pending. She does not have symptoms suggestive of angina at present. She received a dose of 20 mg of furosemide at 5:30 AM and a dose of 40 mg again at 9:32 AM. Potassium had been 3.3 mmol/L and she was received oral potassium replacement. Agree with antibiotic therapy. Follow potassium and replace to keep level 4-5 millimoles per liter. Subcutaneous Lovenox for DVT prophylaxis. History of Present Illness Attending Physician: Ray Sorensen MD History of Present Illness Debra Rose is a 7-year-old female seen in cardiology consultation per the request of Dr. Vasquez for the evaluation of shortness of breath. Patient is a longtime cigarette smoker and has a chart history of COPD. She denies having had a past cardiac history or having been seen by cardiology in the past. She had recently been hospitalized at this institution from 11/19/2022 until 11/24/2022 with what was thought to be of hypoxia due to a COPD exacerbation. She presents again with worsening shortness of breath. Patient required tra nsient positive pressure ventilation with BiPAP in the casino host hours of this morning, and was transition to 4.5 L nasal cannula at present. Nonproductive cough demonstrated at the time my interview. History notable for bipolar disorder and Alzheimer's dementia. Allergies Allergy/AdvReac Type Severity Reaction Status Date / Time ceftriaxone Allergy Intermediate hives Verified 10/06/22 20:25 Iodinated Contrast Media Allergy Intermediate pruritus Verified 10/06/22 20:25 (feet) Penicillins Allergy Intermediate hives Verified 10/06/22 20:25 cisapride AdvReac Intermediate GI symptoms Verified 10/06/22 20:25 solifenacin AdvReac Intermediate blurred Verified 10/06/22 20:25 vision Home Medications Medication Instructions Recorded Confirmed Type donepezil 5 mg tablet 5 mg PO DAILY 01/04/23 01/04/23 History folic acid 1 mg tablet 1 mg PO DAILY 01/04/23 01/04/23 History hydrochlorothiazide 12.5 mg capsule 12.5 mg PO DAILY 01/04/23 01/04/23 History lamotrigine 25 mg tablet 25 mg PO DAILY 01/04/23 01/04/23 History mirabegron 50 mg tablet,extended 50 mg PO DAILY 01/04/23 01/04/23 History release 24 hr (Myrbetriq) risperidone 0.5 mg tablet 0.5 mg PO BID 01/04/23 01/04/23 History sertraline 50 mg tablet 50 mg PO DAILY 01/04/23 01/04/23 History tramadol 50 mg tablet 50 mg PO TID PRN Pain 01/04/23 01/04/23 History Patient History Medical History OAB (overactive bladder) s/p nerve stimulator Bipolar disorder Osteoarthritis Degenerative disc disease Chronic back pain Depression GERD (gastroesophageal reflux disease) CKD (chronic kidney disease) stage 3, GFR 30-59 ml/min Hyperlipidemia Hypertension Surgical History History of arthroplasty of left knee H/O vaginal hysterectomy History of arthroplasty of right knee H/O bladder repair surgery "vaginal sling procedure for stress incontinence 11/2006 " History of carpal tunnel surgery "Right" History of appendectomy History of tonsillectomy and adenoidectomy Family History Father Family hx of colon cancer Brother Family history of diabetes mellitus Sister Family history of diabetes mellitus Social History Smoking Status: Current every day smoker Tobacco Type: Cigarettes Cigarettes Per Day: 7-9; Second Hand Exposure: No; Do You Dip or Chew Tobacco: No; Hx Alcohol Use: No Hx Substance Use: No Preferred Language: Japanese Communication Ability: Effective Motor Analyst Required: No Beliefs That Will Affect Care: None marital status: Current Living Situation: Spouse Other Information That Helps Us Care for You: No Feels Safe at Home: Yes Safety Concerns: Feels Safe At This Time Assistive Devices: Denture - Upper and Denture - Lower Review of Systems Review of Systems: All systems reviewed & are unremarkable except as noted in HPI & below Physical Exam Constitutional: no acute distress (Chronically ill in appearance without acute distress) Respiratory: Auscultation: + diminished lung sounds (Coarse breath sounds with diminished lung sounds); no crackles Gastrointestinal (Abdomen): normal bowel sounds, soft, nontender, no hepatosplenomegaly Neurologic: PERRL, EOMI, accommodation nl, no face palsy, no dysarthria Results & Data Vital Signs (Past 12 Hours) Vital Signs Temp Pulse Pulse Resp BP BP Pulse Ox 01/04/23 10:27 37.1 C 98 H 19 120/79 98 01/04/23 10:04 01/04/23 10:04 37.1 C 98 H 19 120/79 98 01/04/23 08:38 100 H 01/04/23 07:00 96 H 18 116/81 96 01/04/23 06:30 97 H 18 132/73 95 01/04/23 06:08 100 H 21 129/74 95 01/04/23 05:45 01/04/23 05:30 107 H 29 H 117/77 100 01/04/23 04:52 36.7 C 121 H 27 H 122/65 91 01/04/23 04:42 114 H 21 112/62 97 01/04/23 04:39 114 H 01/04/23 04:38 01/04/23 04:30 117 H 20 99/74 L 98 01/04/23 04:28 118 H 29 H 92 O2 Del Method O2 Flow Rate FiO2 01/04/23 10:27 Nasal Cannula 4.5 01/04/23 10:04 Nasal Cannula 4.5 01/04/23 10:04 Nasal Cannula 4.5 01/04/23 08:38 01/04/23 07:00 BiPAP 01/04/23 06:30 BiPAP 40 01/04/23 06:08 BiPAP 40 01/04/23 05:45 40 01/04/23 05:30 BiPAP 60 01/04/23 04:52 CPAP 01/04/23 04:42 BiPAP 60 01/04/23 04:39 01/04/23 04:38 60 01/04/23 04:30 BiPAP 60 01/04/23 04:28 100 Laboratory Results Cardiac Enzymes 01/04/23 Range/Units 04:44 AST 13 (13-39) U/L Troponin I High Sens 26.4 H (0-14) pg/ml B-Natriuretic Peptide 317 H (0-100) pg/ml Coagulation 01/04/23 Range/Units 04:44 PT 10.9 (9.0-12.0) Seconds B-Natriuretic Peptide 317 H (0-100) pg/ml CBC 01/04/23 Range/Units 04:44 WBC 14.41 H (4.8-10.8) K/ul RBC 3.63 L (4.20-5.40) M/uL Hgb 10.7 L (12.0-16.0) g/dl Hct 36.8 L (37.0-47.0) % Plt Count 237 (130-400) K/uL Neut # (Auto) 12.49 H (1.40-6.50) K/uL Lymph # (Auto) 1.33 (1.20-3.40) K/uL [place] # (Auto) 0.44 (0.11-0.59) K/uL Eos # (Auto) 0.06 (0.00-0.50) K/uL Baso # (Auto) 0.02 (0.00-0.20) K/uL Comprehensive Metabolic Panel 01/04/23 Range/Units 04:44 Sodium 139 (136-145) mmol/L Potassium 3.3 L (3.5-5.1) mmol/L Chloride 105 (98-107) mmol/L Carbon Dioxide 27 (21-32) mmol/L BUN 18 (6-23) mg/dl Creatinine 0.98 (0.6-1.2) mg/dl Glucose 146 H (70-99(Fasting)) mg/dl Calcium 9.8 (8.6-10.3) mg/dl AST 13 (13-39) U/L ALT 10 (7-52) U/L Alkaline Phosphatase 94 (34-104) U/L Total Protein 6.7 (6.0-8.3) gm/dl Albumin 3.5 (3.4-5.0) gm/dl Intake and Output 01/03/23 01/04/23 01/04/23 22:59 06:59 14:59 Other: Weight 80.9 kg 80.9 kg Weight Measurement Method Built in [facility] Patient Weight 01/05/23 06:59 Weight 80.9 kg Diagnostic Findings Telemetry reveals sinus rhythm at 99 bpm. EKG performed 01/04/2023 at 4:28 AM revealed sinus tachycardia at 121 bpm, and age-indeterminate inferior infarct cannot be excluded which is a chronic finding dating back to 2016. No acute repolarization changes. Chest x-ray: Summary of radiology report, cardiomegaly with pulmonary vascular congestion, bibasilar opacities perhaps atelectasis versus infectious process -Image reviewed independently, and is consistent with mild pulmonary edema
[2023-01-04] MEDS: DONEPEZIL HCL 5 MG TAB PO SCH (11:09)
[2023-01-04] MEDS: FOLIC ACID 1 MG TAB PO SCH (11:09)
[2023-01-04] MEDS: risperiDONE 0.5 MG TABLET PO SCH ×2 (11:09→20:20)
[2023-01-04] MEDS: SERTRALINE HCL 50 MG TABLET PO SCH (11:09)
[2023-01-04] MEDS: ENOXAPARIN INJ 40 MG/0.4 ML SYR SQ SCH (11:10)
[2023-01-04] MEDS: lamoTRIgine 25 MG TAB PO SCH (11:10)
[2023-01-04] MEDS: LEVALBUTEROL 1.25 MG/3 ML NEB NEB SCH ×3 (11:16→19:11)
[2023-01-04] MEDS: IPRATROPIUM BROMIDE NEB SOLN 0.02% 2.5 ML VIAL INH SCH ×3 (11:17→19:11)
[2023-01-04] MEDS: VIBEGRON 75 MG TAB PO SCH (12:01)
[2023-01-04 15:53] LABS: BUN Creatinine Ratio 21.1 (10-20); Calcium 9.3 mg/dl (8.6-10.3); Creatinine Clr Calc Pharmacy 41.9 ml/min; Est GFR (African American) 62.9 ml/min; Est GFR (Non-African American) 54.2 ml/min; Magnesium 1.9 mg/dl (1.7-2.4)
[2023-01-04] MEDS: FUROSEMIDE 40 MG/4 ML VIAL IV SCH (20:24)
[2023-01-05 06:45] LABS: Calcium 9.5 mg/dl (8.6-10.3); Creatinine Clr Calc Pharmacy 41.9 ml/min; Est GFR (African American) 65.3 ml/min; Est GFR (Non-African American) 56.4 ml/min; Magnesium 1.9 mg/dl (1.7-2.4); Potassium 3.3 mmol/L (3.5-5.1)
[2023-01-05 06:46] LABS: Basophils # (auto) 0.01 K/uL (0.00-0.20); Basophils % (auto) 0.1 %; Eosinophils # (auto) 0.15 K/uL (0.00-0.50); Hemoglobin 8.6 g/dl (12.0-16.0); Immature Granulocytes # (auto) 0.02 K/uL (0.01-0.20); Immature Granulocytes % (auto) 0.3 %; Lymphocytes # (auto) 0.69 K/uL (1.20-3.40); Lymphocytes % (auto) 9.3 %; Mean Corpuscular Hemoglobin 29.5 pg (25.0-34.0); Mean Corpuscular Hgb Conc 29.7 g/dL (32.0-36.0); Mean Corpuscular Volume 99.3 fL (80.0-100.0); Mean Platelet Volume 10.6 fL (9.4-12.4); Monocytes # (auto) 0.43 K/uL (0.11-0.59); Monocytes % (auto) 5.8 %; Neutrophils # (auto) 6.15 K/uL (1.40-6.50); Neutrophils % (auto) 82.5 %; Platelet Count 182 K/uL (130-400); RDW Coefficient of Variation 18.6 % (11.5-14.5); RDW Standard Deviation 69.6 fL (36.4-46.3); Red Blood Count 2.92 M/uL (4.20-5.40); White Blood Count 7.45 K/ul (4.8-10.8)
[2023-01-05] MEDS: IPRATROPIUM BROMIDE NEB SOLN 0.02% 2.5 ML VIAL INH SCH ×4 (07:09→19:09)
[2023-01-05] MEDS: LEVALBUTEROL 1.25 MG/3 ML NEB NEB SCH ×4 (07:09→19:09)
[2023-01-05] MEDS ORDERED: POTASSIUM CHLORIDE CRTAB 20 MEQ TABCR PO STA (08:37)
--- NOTE | 2023-01-05 08:37 | Hospitalist Progress Note ---
Date of Service January 05, 2023 Assessment & Plan (1) Acute hypoxic respiratory failure: Plan: 87-year-old female with past medical significant for COPD, allergic rhinitis, mucopurulent chronic bronchitis, peripheral vascular disease, mild pulmonary hypertension, hypertension, moderate mitral valve stenosis, nonrheumatic aortic valve insufficiency, B12 deficiency, slow transit constipation, esophageal dysmotility, GERD, urinary incontinence, CKD stage III, history of renal mass, moderate late-onset Alzheimer's dementia with agitation, iron deficiency anemia, bipolar 2 disorder, mild depression, lives at home with her was brought in because of respiratory distress. Respiratory distress Acute hypoxic respiratory failure ABG okay Mostly from acute CHF Possible underlying pneumonia ER gave IV Lasix 20 mg Started with IV Lasix 40 mg twice daily -> decrease to 40 daily Daily weights , I's and O's Followed cardiac enzymes and obtained echo Echo Mild concentric LVH. LV wall motion is normal. EF 60 to 65%. Grade 1 diastolic dysfunction. LA is mildly dilated. Aortic valve sclerosis mild, without significant aortic valvular stenosis. There is moderate mitral annular calcification. Significant mitral regurg is absent. There is no mitral valve stenosis. There is mild tricuspid regurg. The pulmonary artery systolic pressure is estimated to 42 mmHg (mildly elevated). Empiric IV Invanz and Doxy for possible pneumonia started on admission Started BiPAP in ED -> down to NS 2L O2 Close monitoring telemetry cardiology consult for further recommendations History of COPD ongoing tobacco abuse Continue home inhalers No obvious wheezing on exam placed on nebs, cont. to monitor CKD stage III Presented with creatinine 0.9 follow the labs. Hypokalemia - replace and monitor History of left renal mass 2.8 cm Under observation by urology Anemia Hemoglobin 10.7 on admission baseline seem 9-10 Under observation by heme-onc cont. to monitor Bipolar disorder history of depression History of late onset Alzheimer's dementia with agitation Continue home meds of donezepil, Lamictal, risperidone and Zoloft We will monitor for any delirium Urinary incontinence Continue Myrbetriq DVT prophylaxis Lovenox Disposition telemetry floor CODE STATUS no intubation but okay for CPR as per discussion with the family on admission Admission and Anticipated Discharge Date Admission Date: January 04, 2023 Subjective Pt seen in follow up resp. failure, required bipap, likely secondary to CHF Currently sitting up in chair in NAD, on suppl. O2 says she feels much better Denies any chest pain, shortness of breath. No abd. pain, n/v Review of Systems Review of Systems: All systems reviewed & are unremarkable except as noted in Subjective Physical Exam Physical Exam: General- WD/WN F in NAD, on suppl. O2 Head- atraumatic Eyes- PERRL. Neck- supple, no JVD. Lungs- clear to auscultation +mild bibasilar crackles heard. No wheezing heard. Heart- regular rhythm; no murmur, no gallop. Abdomen- normal bowel sounds, soft, nontender, no distension Extremities- trace b/l lower extremity +2 edema present. No erythema seen. Neuro- alert, oriented ; PERRL, ; no facial palsy; no dysarthria, moves extremities Skin- warm & dry Results & Data Results & Data Vital Signs (Past 12 Hours) Vital Signs Temp Pulse Pulse Resp BP Pulse Ox O2 Del Method 01/05/23 07:53 37.1 C 97 H 18 123/68 93 Nasal Cannula 01/05/23 07:09 82 16 96 Nasal Cannula 01/05/23 07:05 89 01/05/23 04:36 37.2 C 91 H 19 105/65 95 Nasal Cannula 01/05/23 00:54 93 H 01/04/23 22:59 36.7 C 94 H 18 123/75 96 Nasal Cannula 01/04/23 21:00 Nasal Cannula O2 Flow Rate 01/05/23 07:53 2 01/05/23 07:09 2 01/05/23 07:05 01/05/23 04:36 1.5 01/05/23 00:54 01/04/23 22:59 01/04/23 21:00 2 Laboratory Results 01/05/23 01/04/23 01/04/23 Range/Units 05:34 21:23 15:07 WBC 7.45 (4.8-10.8) K/ul RBC 2.92 L (4.20-5.40) M/uL Hgb 8.6 L (12.0-16.0) g/dl Hct 29.0 L (37.0-47.0) % MCV 99.3 (80.0-100.0) fL MCH 29.5 (25.0-34.0) pg MCHC 29.7 L (32.0-36.0) g/dL RDW Std Deviation 69.6 H (36.4-46.3) fL RDW Coeff of Ami 18.6 H (11.5-14.5) % Plt Count 182 (130-400) K/uL MPV 10.6 (9.4-12.4) fL Immature Gran % (Auto) 0.3 % Neut % (Auto) 82.5 % Lymph % (Auto) 9.3 % Titus % (Auto) 5.8 % Eos % (Auto) 2.0 % Baso % (Auto) 0.1 % Neut # (Auto) 6.15 (1.40-6.50) K/uL Lymph # (Auto) 0.69 L (1.20-3.40) K/uL Titus # (Auto) 0.43 (0.11-0.59) K/uL Eos # (Auto) 0.15 (0.00-0.50) K/uL Baso # (Auto) 0.01 (0.00-0.20) K/uL Immature Gran # (Auto) 0.02 (0.01-0.20) K/uL Sodium 140 137 (136-145) mmol/L Potassium 3.3 L 4.0 D (3.5-5.1) mmol/L Chloride 104 102 (98-107) mmol/L Carbon Dioxide 30 28 (21-32) mmol/L Anion Gap 6 7 (3-11) BUN 23 20 (6-23) mg/dl Creatinine 0.92 0.95 (0.6-1.2) mg/dl Est Cr Clr Drug Dosing 41.9 41.9 ml/min Est GFR ( Amer) 65.3 62.9 ml/min Est GFR (Non-Af Amer) 56.4 54.2 ml/min BUN/Creatinine Ratio 25.0 H 21.1 H (10-20) Glucose 106 H 140 H (70-99(Fasting)) mg/dl Calcium 9.5 9.3 (8.6-10.3) mg/dl Magnesium 1.9 1.9 (1.7-2.4) mg/dl Troponin I High Sens 42.1 H 37.3 H (0-14) pg/ml 01/04/23 Range/Units 09:49 WBC (4.8-10.8) K/ul RBC (4.20-5.40) M/uL Hgb (12.0-16.0) g/dl Hct (37.0-47.0) % MCV (80.0-100.0) fL MCH (25.0-34.0) pg MCHC (32.0-36.0) g/dL RDW Std Deviation (36.4-46.3) fL RDW Coeff of Ami (11.5-14.5) % Plt Count (130-400) K/uL MPV (9.4-12.4) fL Immature Gran % (Auto) % Neut % (Auto) % Lymph % (Auto) % Titus % (Auto) % Eos % (Auto) % Baso % (Auto) % Neut # (Auto) (1.40-6.50) K/uL Lymph # (Auto) (1.20-3.40) K/uL Titus # (Auto) (0.11-0.59) K/uL Eos # (Auto) (0.00-0.50) K/uL Baso # (Auto) (0.00-0.20) K/uL Immature Gran # (Auto) (0.01-0.20) K/uL Sodium (136-145) mmol/L Potassium (3.5-5.1) mmol/L Chloride (98-107) mmol/L Carbon Dioxide (21-32) mmol/L Anion Gap (3-11) BUN (6-23) mg/dl Creatinine (0.6-1.2) mg/dl Est Cr Clr Drug Dosing ml/min Est GFR ( Amer) ml/min Est GFR (Non-Af Amer) ml/min BUN/Creatinine Ratio (10-20) Glucose (70-99(Fasting)) mg/dl Calcium (8.6-10.3) mg/dl Magnesium (1.7-2.4) mg/dl Troponin I High Sens 43.2 H D (0-14) pg/ml Medications Administered Current Inpatient Medications Acetaminophen (Acetaminophen 325 Mg Tab) 650 mg PO Q4H PRN PRN Reason: Pain or Fever Stop: 02/03/23 09:35 Donepezil HCl (Donepezil Hcl 5 Mg Tab) 5 mg PO DAILY YUKI Stop: 02/03/23 09:59 Last Admin: 01/04/23 11:09 Dose: 5 mg Enoxaparin Sodium (Enoxaparin Inj 40 Mg/0.4 Ml Syr) 40 mg SQ Q24H YUKI Stop: 02/03/23 09:59 Last Admin: 01/04/23 11:10 Dose: 40 mg Folic Acid (Folic Acid 1 Mg Tab) 1 mg PO DAILY YUKI Stop: 02/03/23 09:59 Last Admin: 01/04/23 11:09 Dose: 1 mg Furosemide (Furosemide 40 Mg/4 Ml Vial) 40 mg IV BID YUKI Stop: 02/03/23 20:59 Last Admin: 01/04/23 20:24 Dose: 40 mg Doxycycline Hyclate 100 mg/ (Dextrose) 100 mls @ 50 mls/hr IV Q12H YUKI Stop: 01/11/23 08:29 Last Infusion: 01/04/23 22:24 Dose: Infused Ertapenem 1,000 mg/ Syringe 10 mls @ 2 mls/min IV Q24H YUKI Stop: 01/11/23 08:29 Last Admin: 01/04/23 09:32 Dose: 2 mls/min Ipratropium Moriah (Ipratropium [place] Neb Soln 0.02% 2.5 Ml Vial) 0.5 mg INH QIDR [facility] Stop: 02/03/23 10:59 Last Admin: 01/05/23 07:09 Dose: 0.5 mg Lamotrigine (Lamotrigine 25 Mg Tab) 25 mg PO DAILY YUKI Stop: 02/03/23 09:59 Last Admin: 01/04/23 11:10 Dose: 25 mg Levalbuterol HCl (Levalbuterol 1.25 Mg/3 Ml Neb) 1.25 mg NEB QIDR YUKI Stop: 02/03/23 10:59 Last Admin: 01/05/23 07:09 Dose: 1.25 mg Nitroglycerin (Nitroglycerin Sl 0.4 Mg/Tab Tab) 0.4 mg SL Q5M PRN PRN Reason: Chest Pain Stop: 02/03/23 09:35 Risperidone (Risperidone 0.5 Mg Tablet) 0.5 mg PO BID YUKI Stop: 02/03/23 09:59 Last Admin: 01/04/23 20:20 Dose: 0.5 mg Sertraline HCl (Sertraline Hcl 50 Mg Tablet) 50 mg PO DAILY YUKI Stop: 02/03/23 09:59 Last Admin: 01/04/23 11:09 Dose: 50 mg Tramadol HCl (Tramadol Hcl 50 Mg Tablet) 50 mg PO TID PRN PRN Reason: Pain Stop: 02/03/23 09:35 Vibegron (Vibegron 75 Mg Tab) 75 mg PO DAILY YUKI Stop: 02/03/23 09:59 Last Admin: 01/04/23 12:01 Dose: 75 mg
[2023-01-05] MEDS: DONEPEZIL HCL 5 MG TAB PO SCH (08:56)
[2023-01-05] MEDS: FOLIC ACID 1 MG TAB PO SCH (08:56)
[2023-01-05] MEDS: VIBEGRON 75 MG TAB PO SCH (08:56)
[2023-01-05] MEDS: risperiDONE 0.5 MG TABLET PO SCH ×2 (08:56→20:18)
[2023-01-05] MEDS: lamoTRIgine 25 MG TAB PO SCH (08:57)
[2023-01-05] MEDS: ERTAPENEM SODIUM 1,000 MG in SYRINGE 0 ML IV SCH (08:57)
[2023-01-05] MEDS: SERTRALINE HCL 50 MG TABLET PO SCH (08:57)
[2023-01-05] MEDS: FUROSEMIDE 40 MG/4 ML VIAL IV SCH (09:02)
[2023-01-05] MEDS: ENOXAPARIN INJ 40 MG/0.4 ML SYR SQ SCH (09:03)
[2023-01-05] MEDS: DOXYCYCLINE HYCLATE 100 MG in DEXTROSE 5% MINI-B 100 ML IV SCH ×2 (09:07→20:04)
--- NOTE | 2023-01-05 12:22 | Cardiology Progress Note ---
Date of Service January 05, 2023 Assessment & Plan (1) CHF (congestive heart failure): (2) COPD exacerbation: Plan Echocardiogram performed 01/04/2023 and interpreted independently, with mild concentric left ventricular perjury, LVEF in the range of 60 to 65%, grade 1 diastolic dysfunction. Mild mitral regurgitation. Pulmonary artery systolic pressure mildly elevated at 42 mmHg. -Patient with what would appear to perhaps be multifactorial shortness of breath with COPD and possibly superimposed congestive heart failure. Mild relatively mild elevation in her high-sensitivity troponin is noted with relatively flat trend, likely related to myocardial strain. -My impression is that the majority of her symptoms are more due to her COPD and congestive heart failure. -Reduce furosemide from 40 mg IV twice daily to 40 mg daily. -Potassium replacement previously ordered by the primary service. Subcutaneous Lovenox for DVT prophylaxis. Admission and Anticipated Discharge Date Admission Date: January 04, 2023 Subjective Patient seen in cardiology follow up . Pulse oximetry in the high 80s to 90s, but denies resting shortness of breath. Telemetry reveals sinus rhythm and sinus tachycardia with rates of 90-110 bpm. Physical Exam Constitutional: no acute distress (Chronically ill in appearance without acute distress) Respiratory: Auscultation: + diminished lung sounds (Coarse breath sounds with diminished lung sounds); no crackles Gastrointestinal (Abdomen): normal bowel sounds, soft, nontender, no hepatosplenomegaly Neurologic: PERRL, EOMI, accommodation nl, no face palsy, no dysarthria Results & Data Vital Signs (Past 12 Hours) Vital Signs Temp Pulse Pulse Resp BP Pulse Ox O2 Del Method 01/05/23 12:01 37.0 C 106 H 18 127/68 90 Room Air 01/05/23 11:04 65 16 98 Nasal Cannula 01/05/23 10:40 Nasal Cannula 01/05/23 07:53 37.1 C 97 H 18 123/68 93 Nasal Cannula 01/05/23 07:09 82 16 96 Nasal Cannula 01/05/23 07:05 89 01/05/23 04:36 37.2 C 91 H 19 105/65 95 Nasal Cannula 01/05/23 00:54 93 H O2 Flow Rate 01/05/23 12:01 01/05/23 11:04 1 01/05/23 10:40 2 01/05/23 07:53 2 01/05/23 07:09 2 01/05/23 07:05 01/05/23 04:36 1.5 01/05/23 00:54 Laboratory Results Cardiac Enzymes 01/04/23 01/04/23 Range/Units 15:07 21:23 Troponin I High Sens 37.3 H 42.1 H (0-14) pg/ml CBC 01/05/23 Range/Units 05:34 WBC 7.45 (4.8-10.8) K/ul RBC 2.92 L (4.20-5.40) M/uL Hgb 8.6 L (12.0-16.0) g/dl Hct 29.0 L (37.0-47.0) % Plt Count 182 (130-400) K/uL Neut # (Auto) 6.15 (1.40-6.50) K/uL Lymph # (Auto) 0.69 L (1.20-3.40) K/uL Hood # (Auto) 0.43 (0.11-0.59) K/uL Eos # (Auto) 0.15 (0.00-0.50) K/uL Baso # (Auto) 0.01 (0.00-0.20) K/uL Comprehensive Metabolic Panel 01/04/23 01/05/23 Range/Units 15:07 05:34 Sodium 137 140 (136-145) mmol/L Potassium 4.0 D 3.3 L (3.5-5.1) mmol/L Chloride 102 104 (98-107) mmol/L Carbon Dioxide 28 30 (21-32) mmol/L BUN 20 23 (6-23) mg/dl Creatinine 0.95 0.92 (0.6-1.2) mg/dl Glucose 140 H 106 H (70-99(Fasting)) mg/dl Calcium 9.3 9.5 (8.6-10.3) mg/dl Intake and Output 01/04/23 01/05/23 01/05/23 22:59 06:59 14:59 Intake Total 460 / 560 100 / 100 Output Total 500 / 800 Balance 460 / -240 -500 / -240 100 / 100 Intake: IV 100 / 200 100 / 100 Doxycycline Hyclate 100 mg In 100 / 200 100 / 100 Dextrose 5% Mini-B 100 ml @ 50 mls/hr IV Q12H [facility] Rx#:[id number] Oral 360 / 360 Output: Urine Amount (Catheter) 500 / 800 External 500 / 800 Other: # Unmeasured Voids 1 2 Weight 76 kg Weight Measurement Method Built in [facility] (1) CHF (congestive heart failure) Heart failure type: diastolic Heart failure chronicity: acute Qualified Code(s): I50.31 - Acute diastolic (congestive) heart failure
--- NOTE | 2023-01-05 19:50 | Electrocardiogram Report ---
Test Reason : Blood Pressure : / mmHG Vent. Rate : 121 BPM Atrial Rate : 121 BPM P-R Int : 190 ms QRS Dur : 084 ms QT Int : 322 ms P-R-T Axes : 066 -07 033 degrees QTc Int : 457 ms Sinus tachycardia Low voltage QRS Inferior infarct , age undetermined Cannot rule out Anterior infarct (cited on or before 30-APR-2015) Abnormal ECG When compared with ECG of 19-NOV-2022 15:47, Vent. rate has increased BY 41 BPM Inferior infarct is now Present Questionable change in initial forces of Septal leads Confirmed by Jaylon Pelletier ([id number]) on 01/05/2023 7:50:05 PM Referred By: REFERRED SELF Confirmed By:Jaylon Pelletier
--- NOTE | 2023-01-06 06:05 | Electrocardiogram Report ---
Test Reason : Blood Pressure : / mmHG Vent. Rate : 091 BPM Atrial Rate : 091 BPM P-R Int : 178 ms QRS Dur : 096 ms QT Int : 360 ms P-R-T Axes : 082 008 048 degrees QTc Int : 442 ms Normal sinus rhythm Low voltage QRS Inferior infarct (cited on or before 30-APR-2015) Abnormal ECG When compared with ECG of 04-JAN-2023 04:28, (unconfirmed) Minimal criteria for Anterior infarct are no longer Present Confirmed by Jaylon Pelletier ([id number]) on 01/06/2023 6:05:28 AM Referred By: REFERRED SELF Confirmed By:Jaylon Pelletier
[2023-01-06] MEDS: LEVALBUTEROL 1.25 MG/3 ML NEB NEB SCH ×4 (06:50→19:28)
[2023-01-06] MEDS: IPRATROPIUM BROMIDE NEB SOLN 0.02% 2.5 ML VIAL INH SCH ×4 (06:50→19:28)
--- NOTE | 2023-01-06 08:17 | Electrocardiogram Report ---
Test Reason : Blood Pressure : / mmHG Vent. Rate : 093 BPM Atrial Rate : 093 BPM P-R Int : 196 ms QRS Dur : 084 ms QT Int : 358 ms P-R-T Axes : 087 -07 034 degrees QTc Int : 445 ms Poor data quality, interpretation may be adversely affected Normal sinus rhythm Low voltage QRS Septal infarct , age undetermined Possible Otherwise Diffuse Inferior infarct (cited on or before 30-APR-2015) Abnormal ECG When compared with ECG of 05-JAN-2023 05:55, Borderline Criteria for Septal infarct now present Confirmed by Uri Peres ([id number] on 01/06/2023 8:17:08 AM Referred By: REFERRED SELF Confirmed By:Uri Peres
[2023-01-06] MEDS: VIBEGRON 75 MG TAB PO SCH (08:22)
[2023-01-06] MEDS: SERTRALINE HCL 50 MG TABLET PO SCH (08:22)
[2023-01-06] MEDS: DONEPEZIL HCL 5 MG TAB PO SCH (08:22)
[2023-01-06] MEDS: FOLIC ACID 1 MG TAB PO SCH (08:22)
[2023-01-06] MEDS: lamoTRIgine 25 MG TAB PO SCH (08:22)
[2023-01-06] MEDS: risperiDONE 0.5 MG TABLET PO SCH ×2 (08:22→20:50)
[2023-01-06] MEDS: FUROSEMIDE 40 MG/4 ML VIAL IV SCH (08:22)
[2023-01-06] MEDS: DOXYCYCLINE HYCLATE 100 MG in DEXTROSE 5% MINI-B 100 ML IV SCH ×2 (08:24→20:51)
[2023-01-06] MEDS: ERTAPENEM SODIUM 1,000 MG in SYRINGE 0 ML IV SCH (08:29)
[2023-01-06 08:45] LABS: Hemoglobin 8.8 g/dl (12.0-16.0); Mean Corpuscular Hemoglobin 30.3 pg (25.0-34.0); Mean Corpuscular Hgb Conc 31.4 g/dL (32.0-36.0); Mean Corpuscular Volume 96.6 fL (80.0-100.0); Mean Platelet Volume 10.3 fL (9.4-12.4); Platelet Count 199 K/uL (130-400); RDW Coefficient of Variation 18.6 % (11.5-14.5); RDW Standard Deviation 65.6 fL (36.4-46.3)
[2023-01-06] MEDS: ENOXAPARIN INJ 40 MG/0.4 ML SYR SQ SCH (09:04)
[2023-01-06 09:05] LABS: Calcium 9.5 mg/dl (8.6-10.3); Creatinine Clr Calc Pharmacy 46.5 ml/min; Est GFR (African American) 72.9 ml/min; Est GFR (Non-African American) 62.9 ml/min; Phosphorus 2.5 mg/dl (2.5-4.9); Potassium 3.7 mmol/L (3.5-5.1)
--- NOTE | 2023-01-06 13:24 | Cardiology Progress Note ---
Date of Service January 06, 2023 Assessment & Plan (1) COPD exacerbation: (2) CHF (congestive heart failure): (3) (HFpEF) heart failure with preserved ejection fraction: (4) Elevated troponin: (5) Anemia: Plan Acute hypoxic respiratory failure. Treatment as per hospitalist. Recommend evaluating need for supplemental oxygen prior to discharge. HFpEF. Mild pulmonary hypertension. Additional IV furosemide today after supplemental potassium. Trial low-dose Aldactone. Mild relatively mild elevation in her high-sensitivity troponin is noted with relatively flat trend, likely related to myocardial strain. Subcutaneous Lovenox for DVT prophylaxis. Admission and Anticipated Discharge Date Admission Date: January 04, 2023 Supervising Physician Co-Signing Physician Notes Attending Staff: Pt seen and evaluated with [facility] staff Concur with observations and plans Pt is getting close to euvolemia Concur with ongoing diuretics K+ repletion K+ goal 4.5-5 Mag goal >2 Robert Sihrley Subjective Patient seen and examined. Chart, medications, and telemetry reviewed. Feels better today, less shortness of breath. Ongoing lower extremity peripheral edema. No chest pain. No palpitations. No dizziness or lightheadedness. Echo this admission revealed resting echocardiography on January 04, 2023 revealed normal LV systolic function, EF 60 to 65%, mild concentric LVH, grade 1 diastolic dysfunction. The aortic valve was described as mildly sclerotic, without significant stenosis. There was moderate mitral annular calcification without mitral stenosis and without significant mitral regurgitation. Estimated pulmonary artery systolic pressure 42 mmHg EKG on January 06, 2023 was technically limited, revealing sinus rhythm at 93 bpm with low voltage QRS, possible old septal infarct. Telemetry: Sinus in the 90s to 100s. No atrial fibrillation. Recorded I's/O's -183 mL overall. Review of Systems Review of Systems: Complete review of systems is otherwise as stated above, negative, noncontributory Physical Exam Physical Exam: General: A&Ox3. NAD. HENT: Normocephalic. Atraumatic. Eyes: PER. Conjunctiva pink, sclera clear. Neck: + JVD. Heart: Regular rate and rhythm, 90 bpm. Soft systolic ejection murmur. No diastolic murmur. No rub. Lungs: Diminished. Decreased. Poor air exchange. Bibasilar Rales. No wheeze. Abdomen: +BS. Soft. Nontender. No masses or organomegaly. Extremities: 1+ nonpitting edema. No clubbing. No cyanosis. Limited neurological examination is without focal deficits. Pulses: radial=2/4, posterior tibial=2/4. Results & Data Vital Signs (Past 12 Hours) Vital Signs Temp Pulse Pulse Resp BP Pulse Ox O2 Del Method 01/06/23 12:35 36.9 C 97 H 16 111/69 94 Room Air 01/06/23 10:51 Room Air 01/06/23 10:45 93 H 16 94 Room Air 01/06/23 10:43 90 01/06/23 08:30 36.9 C 99 H 19 102/63 94 Room Air 01/06/23 06:50 96 H 16 97 Nasal Cannula 01/06/23 04:06 36.8 C 100 H 20 144/80 H 95 Nasal Cannula O2 Flow Rate 01/06/23 12:35 01/06/23 10:51 01/06/23 10:45 01/06/23 10:43 01/06/23 08:30 01/06/23 06:50 2 01/06/23 04:06 2 Laboratory Results CBC 01/06/23 Range/Units 08:13 WBC 5.50 (4.8-10.8) K/ul RBC 2.90 L (4.20-5.40) M/uL Hgb 8.8 L (12.0-16.0) g/dl Hct 28.0 L (37.0-47.0) % Plt Count 199 (130-400) K/uL Comprehensive Metabolic Panel 01/06/23 Range/Units 08:13 Sodium 141 (136-145) mmol/L Potassium 3.7 (3.5-5.1) mmol/L Chloride 104 (98-107) mmol/L Carbon Dioxide 32 (21-32) mmol/L BUN 21 (6-23) mg/dl Creatinine 0.84 (0.6-1.2) mg/dl Glucose 112 H (70-99(Fasting)) mg/dl Calcium 9.5 (8.6-10.3) mg/dl Intake and Output 01/05/23 01/06/23 01/06/23 22:59 06:59 14:59 Intake Total 220 / 420 100 / 420 340 / 340 Output Total 500 / 701 201 / 701 2 / 2 Balance -280 / -281 -101 / -281 338 / 338 Intake: IV 100 / 200 100 / 100 Doxycycline Hyclate 100 mg In 100 / 200 100 / 100 Dextrose 5% Mini-B 100 ml @ 50 mls/hr IV Q12H [facility] Rx#:[id number] Oral 120 / 220 100 / 220 240 / 240 Output: Urine Amount (Catheter) 500 / 700 200 / 700 External 500 / 700 200 / 700 # Bowel Movements 1 / 1 2 / 2 Other: # Unmeasured Voids 1 1 Weight 78 kg Weight Measurement Method Built in [facility] (2) CHF (congestive heart failure) Heart failure chronicity: acute Heart failure type: diastolic Qualified Code(s): I50.31 - Acute diastolic (congestive) heart failure
[2023-01-06] MEDS ORDERED: POTASSIUM CHLORIDE CRTAB 20 MEQ TABCR PO STA (13:29)
[2023-01-06] MEDS ORDERED: FUROSEMIDE INJ 20 MG/2 ML VIAL IV ONE (15:00)
[2023-01-06] MEDS: SPIRONOLACTONE 12.5 MG TAB PO SCH (15:55)
--- NOTE | 2023-01-06 20:50 | Hospitalist Progress Note ---
Date of Service January 06, 2023 Assessment & Plan (1) (HFpEF) heart failure with preserved ejection fraction: (2) Elevated troponin: (3) Anemia: (4) Pulmonary edema: (5) Acute hypoxic respiratory failure: (6) CHF (congestive heart failure): Plan 87-year-old female with past medical Hx significant for COPD, allergic rhinitis, mucopurulent chronic bronchitis, peripheral vascular disease, mild pulmonary hypertension, hypertension, moderate mitral valve stenosis, nonrheumatic aortic valve insufficiency, B12 deficiency, slow transit constipation, esophageal dysmotility, GERD, urinary incontinence, CKD stage III, history of renal mass, moderate late-onset Alzheimer's dementia with agitation, iron deficiency anemia, bipolar 2 disorder, mild depression admitted with acute hypoxic respiratory failure. Respiratory distress Acute hypoxic respiratory failure On admission, ABG unremarkable Chest XRAY with cardiomegaly and pulmonary vascular congestion, possible infection Blood Cx x2 NGTD Suspect symptoms are from acute CHF, possible underlying pneumonia Received IV Lasix 20 mg in the ED Was on IV Lasix 40 mg twice daily, currently on IV Lasix 40mg daily Daily weights , I's and O's Followed cardiac enzymes (flattened) and obtained echo -Echo with EF 60 to 65%, grade 1 diastolic dysfunction, moderate mitral annular calcification, pulmonary HTN Empiric IV Invanz and Doxy for possible pneumonia started on admission, continue Started BiPAP in ED, has since been weaned down to room air Cardiology consult-appreciate recs -started on low dose spironolactone with IV Lasix Diarrhea Pt with episodes of fecal incontinence c diff negative PRN Imodium continue to monitor History of COPD ongoing tobacco abuse Continue home inhalers, nebs prn CKD stage III stable Hypokalemia replete and monitor History of left renal mass Mass 2.8 cm Under observation by urology Anemia Hemoglobin 10.7 on admission baseline seem 9-10 Under observation by heme-onc cont. to monitor Bipolar disorder history of depression History of late onset Alzheimer's dementia with agitation Continue home meds of donepezil, Lamictal, risperidone and Zoloft We will monitor for any delirium Urinary incontinence Continue Myrbetriq Diet: HH, easy to chew DVT prophylaxis: Lovenox CODE STATUS: no intubation but okay for CPR as per discussion with the family on admission Dispo: home with HH/PT Admission and Anticipated Discharge Date Admission Date: January 04, 2023 Subjective Pt seen in the AM. Sitting at bedside combing her hair. Asking to go home. Reportedly worked with PT before and was having episodes of fecal incontinence. C diff testing ordered. Denied acute concerns. Review of Systems Review of Systems: All systems reviewed & are unremarkable except as noted in Subjective Physical Exam Physical Exam: General: Alert. No acute distress Psych: Appropriate mood and affect Neuro: Some hearing loss, delayed speech HEENT: NC/AT CV: RRR Resp: Breath sounds clear bilaterally, no increased effort of breathing. No crackles/rhonchi/rales. Abdomen: Soft, nontender, nondistended. Extremities: edema in lower extremities bilaterally. Results & Data Results & Data Vital Signs (Past 12 Hours) Vital Signs Temp Pulse Pulse Resp BP Pulse Ox O2 Del Method 01/06/23 10:51 Room Air 01/06/23 10:45 93 H 16 94 Room Air 01/06/23 10:43 90 01/06/23 08:30 36.9 C 99 H 19 102/63 94 Room Air 01/06/23 06:50 96 H 16 97 Nasal Cannula 01/06/23 04:06 36.8 C 100 H 20 144/80 H 95 Nasal Cannula 01/06/23 01:08 36.7 C 95 H 19 112/66 96 Nasal Cannula O2 Flow Rate 01/06/23 10:51 01/06/23 10:45 01/06/23 10:43 01/06/23 08:30 01/06/23 06:50 2 01/06/23 04:06 2 01/06/23 01:08 2 (6) CHF (congestive heart failure) Heart failure chronicity: acute Heart failure type: diastolic Qualified Code(s): I50.31 - Acute diastolic (congestive) heart failure
[2023-01-06] MEDS ORDERED: LOPERAMIDE HCL 2 MG CAP PO PRN (21:19)
[2023-01-07] MEDS: LEVALBUTEROL 1.25 MG/3 ML NEB NEB SCH (07:01)
[2023-01-07] MEDS: IPRATROPIUM BROMIDE NEB SOLN 0.02% 2.5 ML VIAL INH SCH (07:02)
[2023-01-07 07:37] LABS: Basophils # (auto) 0.01 K/uL (0.00-0.20); Basophils % (auto) 0.2 %; Eosinophils # (auto) 0.18 K/uL (0.00-0.50); Eosinophils % (auto) 3.2 %; Hematocrit (blood only) 27.6 % (37.0-47.0); Hemoglobin 8.4 g/dl (12.0-16.0); Immature Granulocytes # (auto) 0.02 K/uL (0.01-0.20); Immature Granulocytes % (auto) 0.4 %; Lymphocytes % (auto) 17.5 %; Mean Corpuscular Hemoglobin 29.6 pg (25.0-34.0); Mean Corpuscular Hgb Conc 30.4 g/dL (32.0-36.0); Mean Corpuscular Volume 97.2 fL (80.0-100.0); Mean Platelet Volume 9.8 fL (9.4-12.4); Monocytes # (auto) 0.48 K/uL (0.11-0.59); Monocytes % (auto) 8.4 %; Neutrophils # (auto) 4.01 K/uL (1.40-6.50); Neutrophils % (auto) 70.3 %; Platelet Count 196 K/uL (130-400); RDW Coefficient of Variation 18.5 % (11.5-14.5); RDW Standard Deviation 66.2 fL (36.4-46.3); Red Blood Count 2.84 M/uL (4.20-5.40)
[2023-01-07 07:57] LABS: BUN Creatinine Ratio 25.3 (10-20); Calcium 9.8 mg/dl (8.6-10.3); Creatinine Clr Calc Pharmacy 46.1 ml/min; Est GFR (Non-African American) 63.9 ml/min; Phosphorus 3.1 mg/dl (2.5-4.9)
[2023-01-07] MEDS: FUROSEMIDE 40 MG/4 ML VIAL IV SCH (08:45)
[2023-01-07] MEDS: DONEPEZIL HCL 5 MG TAB PO SCH (08:45)
[2023-01-07] MEDS: DOXYCYCLINE HYCLATE 100 MG in DEXTROSE 5% MINI-B 100 ML IV SCH ×2 (08:45→20:05)
[2023-01-07] MEDS: SERTRALINE HCL 50 MG TABLET PO SCH (08:46)
[2023-01-07] MEDS: lamoTRIgine 25 MG TAB PO SCH (08:46)
[2023-01-07] MEDS: FOLIC ACID 1 MG TAB PO SCH (08:46)
[2023-01-07] MEDS: risperiDONE 0.5 MG TABLET PO SCH ×2 (08:46→20:06)
[2023-01-07] MEDS: VIBEGRON 75 MG TAB PO SCH (08:46)
[2023-01-07] MEDS: ERTAPENEM SODIUM 1,000 MG in SYRINGE 0 ML IV SCH (09:01)
[2023-01-07] MEDS ORDERED: LEVALBUTEROL 1.25 MG/3 ML NEB NEB PRN (09:07)
[2023-01-07] MEDS ORDERED: IPRATROPIUM BROMIDE NEB SOLN 0.02% 2.5 ML VIAL INH PRN (09:07)
[2023-01-07] MEDS: SPIRONOLACTONE 12.5 MG TAB PO SCH (09:19)
[2023-01-07] MEDS: ENOXAPARIN INJ 40 MG/0.4 ML SYR SQ SCH (10:55)
--- NOTE | 2023-01-07 13:37 | Discharge Summary ---
Discharge Summary Date of Service January 07, 2023 Admission HPI Per Admitting Provider 87-year-old female with past medical significant for COPD, allergic rhinitis, mucopurulent chronic bronchitis, peripheral vascular disease, mild pulmonary hypertension, hypertension, moderate mitral valve stenosis, nonrheumatic aortic valve insufficiency, B12 deficiency, slow transit constipation, esophageal dysmotility, GERD, urinary incontinence, CKD stage III, history of renal mass, moderate late-onset Alzheimer's dementia with agitation, iron deficiency anemia, bipolar 2 disorder, mild depression, lives at home with her was brought in because of respiratory distress. She has chronic swelling in the legs but last few days the swelling has increased and she was prescribed hydrochlorothiazide yesterday. Apparently patient was doing okay. No complaint of shortness of breath or chest pain. No cough. No fevers. Normal bowel and bladder movements. Appetite is okay. And the middle of the night she woke up complaining of shortness of breath. She was sweating profusely. checked her oxygen sats and were in 60s and called EMS. For EMS also her oxygen sats were in 60s and she was placed on CPAP and brought to the hospital. Currently on BiPAP saturating okay. Chest x-ray showed pulmonary congestion. Received dose of Lasix IV 20 mg in the ER. Patient is alert and awake. Can tell her name. Can tell her date of . Knows that she is in the hospital. Think this November but could tell the year. Patient states she is feeling better. Denies any chest pain. No abdominal pain. Patient currently smokes 3 to 4 cigarettes daily Past medical history. As mentioned above. Past surgical history. Bilateral total knee arthroplasty. Carpal tunnel surgery. No current catheterization. Colonoscopy. EGD. Flexible sigmo idoscopy. Hemorrhoidectomy. Implantation of neurostimulator. Appendectomy, tonsillectomy, cataract surgery, repair of bladder and vaginal cystocele, repair of bladder defect, vaginal hysterectomy. Social history. . Smokes 3 to 4 cigarettes daily. No alcohol use. No drug use. Family history. Father had cancer. Heart disorder. Mother had cancer. Renal failure. Sister had breast cancer. Principal Dx & Hospital Course #1 = Principal Diagnosis (1) (HFpEF) heart failure with preserved ejection fraction: (2) Elevated troponin: (3) Anemia: (4) Pulmonary edema: (5) Acute hypoxic respiratory failure: (6) CHF (congestive heart failure): Plan 87-year-old female with past medical Hx significant for COPD, allergic rhinitis, mucopurulent chronic bronchitis, peripheral vascular disease, mild pulmonary hypertension, hypertension, moderate mitral valve stenosis, nonrheumatic aortic valve insufficiency, B12 deficiency, slow transit constipation, esophageal dysmotility, GERD, urinary incontinence, CKD stage III, history of renal mass, moderate late-onset Alzheimer's dementia with agitation, iron deficiency anemia, bipolar 2 disorder, mild depression admitted with acute hypoxic respiratory failure. Respiratory distress Acute hypoxic respiratory failure On admission, ABG unremarkable Chest XRAY with cardiomegaly and pulmonary vascular congestion, possible infection Blood Cx x2 NGTD Suspect symptoms are from acute CHF, possible underlying pneumonia Received IV Lasix 20 mg in the ED Was on IV Lasix 40 mg twice daily, currently on IV Lasix 40mg daily Daily weights , I's and O's Followed cardiac enzymes (flattened) and obtained echo -Echo with EF 60 to 65%, grade 1 diastolic dysfunction, moderate mitral annular calcification, pulmonary HTN Empiric IV Invanz and Doxy for possible pneumonia started on admission, continue Started BiPAP in ED, has since been weaned down to room air Cardiology consult-appreciate recs -started on low dose spironolactone with IV Lasix Diarrhea Pt with episodes of fecal incontinence c diff negative PRN Imodium continue to monitor History of COPD ongoing tobacco abuse Continue home inhalers, nebs prn CKD stage III stable Hypokalemia replete and monitor History of left renal mass Mass 2.8 cm Under observation by urology Anemia Hemoglobin 10.7 on admission baseline seem 9-10 Under observation by heme-onc cont. to monitor Bipolar disorder history of depression History of late onset Alzheimer's dementia with agitation Continue home meds of donepezil, Lamictal, risperidone and Zoloft We will monitor for any delirium Urinary incontinence Continue Myrbetriq Diet: HH, easy to chew DVT prophylaxis: Lovenox CODE STATUS: no intubation but okay for CPR as per discussion with the family on admission Dispo: home with HH/PT Discharge Exam General: Alert. No acute distress Psych: Appropriate mood and affect Neuro: Some hearing loss, delayed speech HEENT: NC/AT CV: RRR Resp: Breath sounds clear bilaterally, no increased effort of breathing. No crackles/rhonchi/rales. Abdomen: Soft, nontender, nondistended. Extremities: edema in lower extremities bilaterally. Updated Medication List Medication Instructions Recorded Confirmed Type donepezil 5 mg tablet 5 mg PO DAILY 01/04/23 01/04/23 History folic acid 1 mg tablet 1 mg PO DAILY 01/04/23 01/04/23 History hydrochlorothiazide 12.5 mg capsule 12.5 mg PO DAILY 01/04/23 01/04/23 History lamotrigine 25 mg tablet 25 mg PO DAILY 01/04/23 01/04/23 History mirabegron 50 mg tablet,extended 50 mg PO DAILY 01/04/23 01/04/23 History release 24 hr (Myrbetriq) risperidone 0.5 mg tablet 0.5 mg PO BID 01/04/23 01/04/23 History sertraline 50 mg tablet 50 mg PO DAILY 01/04/23 01/04/23 History tramadol 50 mg tablet 50 mg PO TID PRN Pain 01/04/23 01/04/23 History Hospital Stay Data Consultations 01/04/23 08:02 Consult Cardiology Routine 01/04/23 09:36 Consult Cardiology Routine Diagnostic Imagining Performed 01/04/23 05:28 CT cervical spine wo con Stat CT head/brain wo con Stat
--- NOTE | 2023-01-07 14:25 | Cardiology Progress Note ---
Date of Service January 07, 2023 Assessment & Plan (1) COPD exacerbation: (2) CHF (congestive heart failure): (3) (HFpEF) heart failure with preserved ejection fraction: (4) Elevated troponin: (5) Anemia: Plan Acute hypoxic respiratory failure. Treatment as per hospitalist. Recommend evaluating need for supplemental oxygen prior to discharge. HFpEF. Mild pulmonary hypertension. Received IV furosemide today. Low-dose Aldactone added 01/06. When ready for discharge would send home on furosemide 20 mg/day and spironolactone 12.5 mg/day Mild relatively mild elevation in her high-sensitivity troponin is noted with relatively flat trend, likely related to myocardial strain. Subcutaneous Lovenox for DVT prophylaxis. Generalized weakness/debilitation. Consider rehabilitation stay. Admission and Anticipated Discharge Date Admission Date: January 04, 2023 Supervising Physician Co-Signing Physician Notes Attending Staff: Patient seen and examined with [facility] Staff Agree with observations and plans 87 yo woman presenting with HFpEF Pt is close to euvolemia Stop IV Lasix Start Lasix 20 mg po per day Start Aldactone 12.5 mg po per day SBP - at goal HR- sinus at goal K+ goal 4.5-5 Mag goal >2 Please have patient follow up with [facility] Cardiology Please call back with any additional questions Robert Quispe Patient seen and examined. Chart, medications, and telemetry reviewed. at bedside. Feels better today, less shortness of breath. Increased urinary output noted. Lower extremity peripheral edema improved. No chest pain. No palpitations. No dizziness or lightheadedness. Anxious for discharge. Echo this admission revealed resting echocardiography on January 04, 2023 revealed normal LV systolic function, EF 60 to 65%, mild concentric LVH, grade 1 diastolic dysfunction. The aortic valve was described as mildly sclerotic, without significant stenosis. There was moderate mitral annular calcification without mitral stenosis and without significant mitral regurgitation. Estimated pulmonary artery systolic pressure 42 mmHg Telemetry: Sinus in the 80s and 90's. Review of Systems Review of Systems: Complete review of systems is otherwise as stated above, negative, noncontributory Physical Exam Physical Exam: General: A&Ox3. NAD. HENT: Normocephalic. Atraumatic. Eyes: PER. Conjunctiva pink, sclera clear. Neck: + JVD. Heart: Regular rate and rhythm, 90 bpm. Soft systolic ejection murmur. No diastolic murmur. No rub. Lungs: Diminished. Decreased. Poor air exchange. Bibasilar rales. No wheeze. Abdomen: +BS. Soft. Nontender. No masses or organomegaly. Extremities: Mild nonpitting edema. No clubbing. No cyanosis. Limited neurological examination is without focal deficits. Pulses: radial=2/4, posterior tibial=2/4. Results & Data Vital Signs (Past 12 Hours) Vital Signs Temp Pulse Pulse Resp BP Pulse Ox O2 Del Method 01/07/23 11:50 37.0 C 95 H 19 116/69 92 Room Air 01/07/23 09:38 Room Air 01/07/23 09:34 88 01/07/23 08:03 37.0 C 96 H 19 112/71 94 Room Air 01/07/23 07:02 92 H 18 90 Room Air 01/07/23 03:18 36.8 C 92 H 18 126/75 94 Nasal Cannula O2 Flow Rate 01/07/23 11:50 01/07/23 09:38 01/07/23 09:34 01/07/23 08:03 01/07/23 07:02 01/07/23 03:18 2 Laboratory Results CBC 01/07/23 Range/Units 07:20 WBC 5.70 (4.8-10.8) K/ul RBC 2.84 L (4.20-5.40) M/uL Hgb 8.4 L (12.0-16.0) g/dl Hct 27.6 L (37.0-47.0) % Plt Count 196 (130-400) K/uL Neut # (Auto) 4.01 (1.40-6.50) K/uL Lymph # (Auto) 1.00 L (1.20-3.40) K/uL [place] # (Auto) 0.48 (0.11-0.59) K/uL Eos # (Auto) 0.18 (0.00-0.50) K/uL Baso # (Auto) 0.01 (0.00-0.20) K/uL Comprehensive Metabolic Panel 01/07/23 Range/Units 07:20 Sodium 140 (136-145) mmol/L Potassium 4.0 (3.5-5.1) mmol/L Chloride 105 (98-107) mmol/L Carbon Dioxide 30 (21-32) mmol/L BUN 21 (6-23) mg/dl Creatinine 0.83 (0.6-1.2) mg/dl Glucose 108 H (70-99(Fasting)) mg/dl Calcium 9.8 (8.6-10.3) mg/dl Intake and Output 01/06/23 01/07/23 01/07/23 22:59 06:59 14:59 Intake Total 160 / 980 0 / 980 620 / 620 Output Total 551 / 1153 600 / 1153 300 / 300 Balance -391 / -173 -600 / -173 320 / 320 Intake: IV 100 / 200 100 / 100 Doxycycline Hyclate 100 mg In 100 / 200 100 / 100 Dextrose 5% Mini-B 100 ml @ 50 mls/hr IV Q12H [facility] Rx#:[id number] Oral 60 / 780 0 / 780 520 / 520 Output: Urine 550 / 550 Urine Amount (Catheter) 600 / 600 300 / 300 External 600 / 600 300 / 300 # Bowel Movements 1 / 3 Other: # Unmeasured Voids 1 Weight 74.9 kg Weight Measurement Method Built in [facility] Medications Administered Current Inpatient Medications Acetaminophen (Acetaminophen 325 Mg Tab) 650 mg PO Q4H PRN PRN Reason: Pain or Fever Stop: 02/03/23 09:35 Donepezil HCl (Donepezil Hcl 5 Mg Tab) 5 mg PO DAILY [facility] Stop: 02/03/23 09:59 Last Admin: 01/07/23 08:45 Dose: 5 mg Enoxaparin Sodium (Enoxaparin Inj 40 Mg/0.4 Ml Syr) 40 mg SQ Q24H [facility] Stop: 02/03/23 09:59 Last Admin: 01/07/23 10:55 Dose: 40 mg Folic Acid (Folic Acid 1 Mg Tab) 1 mg PO DAILY [facility] Stop: 02/03/23 09:59 Last Admin: 01/07/23 08:46 Dose: 1 mg Furosemide (Furosemide 40 Mg/4 Ml Vial) 40 mg IV DAILY [facility] Stop: 02/05/23 08:59 Last Admin: 01/07/23 08:45 Dose: 40 mg Doxycycline Hyclate 100 mg/ (Dextrose) 100 mls @ 50 mls/hr IV Q12H [facility] Stop: 01/11/23 08:29 Last Infusion: 01/07/23 10:45 Dose: Infused Ertapenem 1,000 mg/ Syringe 10 mls @ 2 mls/min IV Q24H [facility] Stop: 01/11/23 08:29 Last Admin: 01/07/23 09:01 Dose: 2 mls/min Ipratropium [place] (Ipratropium [place] Neb Soln 0.02% 2.5 Ml Vial) 0.5 mg INH QIDR PRN PRN Reason: Shortness Of Breath Or Wheezing Stop: 02/03/23 10:59 Lamotrigine (Lamotrigine 25 Mg Tab) 25 mg PO DAILY [facility] Stop: 02/03/23 09:59 Last Admin: 01/07/23 08:46 Dose: 25 mg Levalbuterol HCl (Levalbuterol 1.25 Mg/3 Ml Neb) 1.25 mg NEB QIDR PRN PRN Reason: Shortness Of Breath Or Wheezing Stop: 02/03/23 10:59 Loperamide HCl (Loperamide Hcl 2 Mg Cap) 2 mg PO Q6H PRN PRN Reason: Diarrhea Stop: 02/05/23 21:18 Nitroglycerin (Nitroglycerin Sl 0.4 Mg/Tab Tab) 0.4 mg SL Q5M PRN PRN Reason: Chest Pain Stop: 02/03/23 09:35 Risperidone (Risperidone 0.5 Mg Tablet) 0.5 mg PO BID [facility] Stop: 02/03/23 09:59 Last Admin: 01/07/23 08:46 Dose: 0.5 mg Sertraline HCl (Sertraline Hcl 50 Mg Tablet) 50 mg PO DAILY [facility] Stop: 02/03/23 09:59 Last Admin: 01/07/23 08:46 Dose: 50 mg Spironolactone (Spironolactone 12.5 Mg Tab) 12.5 mg PO DAILY [facility] Stop: 02/05/23 13:29 Last Admin: 01/07/23 09:19 Dose: 12.5 mg Tramadol HCl (Tramadol Hcl 50 Mg Tablet) 50 mg PO TID PRN PRN Reason: Pain Stop: 02/03/23 09:35 Vibegron (Vibegron 75 Mg Tab) 75 mg PO DAILY [facility] Stop: 02/03/23 09:59 Last Admin: 01/07/23 08:46 Dose: 75 mg (2) CHF (congestive heart failure) Heart failure chronicity: acute Heart failure type: diastolic Qualified Code(s): I50.31 - Acute diastolic (congestive) heart failure (3) (HFpEF) heart failure with preserved ejection fraction Heart failure chronicity: acute Qualified Code(s): I50.31 - Acute diastolic (congestive) heart failure (5) Anemia Anemia type: unspecified type Qualified Code(s): D64.9 - Anemia, unspecified
--- NOTE | 2023-01-07 16:49 | Hospitalist Progress Note ---
Date of Service January 07, 2023 Assessment & Plan (1) (HFpEF) heart failure with preserved ejection fraction: (2) Elevated troponin: (3) Anemia: (4) Pulmonary edema: (5) Acute hypoxic respiratory failure: (6) CHF (congestive heart failure): Plan 87-year-old female with past medical Hx significant for COPD, allergic rhinitis, mucopurulent chronic bronchitis, peripheral vascular disease, mild pulmonary hypertension, hypertension, moderate mitral valve stenosis, nonrheumatic aortic valve insufficiency, B12 deficiency, slow transit constipation, esophageal dysmotility, GERD, urinary incontinence, CKD stage III, history of renal mass, moderate late-onset Alzheimer's dementia with agitation, iron deficiency anemia, bipolar 2 disorder, mild depression admitted with acute hypoxic respiratory failure. Respiratory distress Acute hypoxic respiratory failure On admission, ABG unremarkable Chest XRAY with cardiomegaly and pulmonary vascular congestion, possible infection Blood Cx x2 NGTD Suspect symptoms are from acute CHF, possible underlying pneumonia Received IV Lasix 20 mg in the ED Was on IV Lasix 40 mg twice daily, currently on IV Lasix 40mg daily Daily weights , I's and O's Followed cardiac enzymes (flattened) and obtained echo -Echo with EF 60 to 65%, grade 1 diastolic dysfunction, moderate mitral annular calcification, pulmonary HTN Empiric IV Invanz and Doxy for possible pneumonia started on admission, continue Started BiPAP in ED, has since been weaned down to room air Cardiology consult-appreciate recs -started on low dose spironolactone with IV Lasix Diarrhea Pt with episodes of fecal incontinence c diff negative PRN Imodium continue to monitor History of COPD ongoing tobacco abuse Continue home inhalers, nebs prn CKD stage III stable Hypokalemia replete and monitor History of left renal mass Mass 2.8 cm Under observation by urology Anemia Hemoglobin 10.7 on admission baseline seem 9-10 Under observation by heme-onc cont. to monitor Bipolar disorder history of depression History of late onset Alzheimer's dementia with agitation Continue home meds of donepezil, Lamictal, risperidone and Zoloft We will monitor for any delirium Urinary incontinence Continue Myrbetriq Diet: HH, easy to chew DVT prophylaxis: Lovenox CODE STATUS: no intubation but okay for CPR as per discussion with the family on admission Dispo: pending re-evaluation with PT for dispo given pt's decrease in function Admission and Anticipated Discharge Date Admission Date: January 04, 2023 Subjective Pt seen in the AM, at bedside. Wanted to be discharged. Stated her episodes of diarrhea had resolved. Per CM set up with home health, PT recommending discharge home with home health services. Later notified by nursing that pt has been having difficulty getting out of bed, sitting in urine. Daughter reportedly concerned that she cannot take care of self at home. CM contacted once more, will reach out to PT for reevaluation. Review of Systems Review of Systems: All systems reviewed & are unremarkable except as noted in Subjective Physical Exam Physical Exam: General: Alert. No acute distress Psych: Appropriate mood and affect Neuro: Some hearing loss, delayed speech HEENT: NC/AT CV: RRR Resp: Breath sounds clear bilaterally, no increased effort of breathing. No crackles/rhonchi/rales. Abdomen: Soft, nontender, nondistended. Extremities: edema in lower extremities bilaterally. Results & Data Results & Data Vital Signs (Past 12 Hours) Vital Signs Temp Pulse Pulse Pulse Pulse Resp Resp 01/07/23 16:04 37.4 C 102 H 19 01/07/23 15:34 120 H 108 H 22 01/07/23 11:50 37.0 C 95 H 19 01/07/23 09:38 01/07/23 09:34 88 01/07/23 08:03 37.0 C 96 H 19 01/07/23 07:02 92 H 18 Resp BP Pulse Ox Pulse Ox Pulse Ox O2 Del Method 01/07/23 16:04 121/74 91 Room Air 01/07/23 15:34 18 96 94 01/07/23 11:50 116/69 92 Room Air 01/07/23 09:38 Room Air 01/07/23 09:34 01/07/23 08:03 112/71 94 Room Air 01/07/23 07:02 90 Room Air (1) (HFpEF) heart failure with preserved ejection fraction Heart failure chronicity: acute Qualified Code(s): I50.31 - Acute diastolic (congestive) heart failure (3) Anemia Anemia type: unspecified type Qualified Code(s): D64.9 - Anemia, unspecified (6) CHF (congestive heart failure) Heart failure chronicity: acute Heart failure type: diastolic Qualified Code(s): I50.31 - Acute diastolic (congestive) heart failure
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
--- OUTSIDE RECORDS SUMMARY | 2023-01-07 20:03 | External Medical Summary | Summary of Care ---
Author Name Unknown Organization [facility] Address [address] [place] [address] Phone [phone] Care Team Providers Care Environmental Educator Name Role Phone Devi Luna DO Primary Care Provider [phone] Encounter Details Date Type Department Care Team (Latest Contact Info) Description 12/27/2022 Music Worker Care Coordination and Integration [address] [place] [address] Dia Jenkins RN [address], [place] [id number] Need for case management follow-up*; COPD, group B, by GOLD 2017 classification ([facility]); Bipolar 2 disorder ([facility]); 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 ([facility]); Tobacco use disorder; Advanced care planning/counseling discussion Allergies Active Allergy Reactions Criticality Noted Date Comments Ceftriaxone Sodium hives Cisapride Propulsid--vomiting Cisapride 09/23/2017 Iodinated Contrast Media 09/23/2017 Renografin--itching /feet only Penicillins hives Solifenacin Succinate Other (Please comment) 06/17/2008 Blurred vision at 10 mg dose documented as of this encounter (statuses as of 12/27/2022) Medications Medication Sig Dispensed Refills Start Date End Date Status VITAMIN D 1000 UNIT PO CAPSIndications:Vi tamin D deficiency 1 capsule daily 1 Cap 0 04/19/2010 Active B-12 1000 MCG PO CAPSIndications:B1 2 deficiency one pill each day 1 Cap 0 03/02/2014 Active Multiple Vitamins-Minerals (HAIR SKIN AND NAILS FORMULA) TABS Take by mouth. 0 10/23/2018 Active Loratadine 10 MG Oral Capsule Take 1 Capsule by mouth in the morning. 0 Active Ferrous Sulfate 325 (65 Fe) MG Oral Tablet (Feosol) Take 1 Tablet by mouth. 1 tab every other day 0 Active lamoTRIgine 25 MG Oral Tablet (LaMICtal)Indicati ons:Bipolar 2 disorder (HCC),Current mild episode of major depressive disorder without prior episode (HCC) Take 1 Tablet by mouth in the morning. 90 Tablet 1 07/09/2022 Active Sertraline HCl 50 MG Oral Tablet (Zoloft)Indication s:Bipolar 2 disorder (HCC),Current mild episode of major depressive disorder without prior episode (HCC) Take 1.5 Tablets by mouth in the morning. 135 Tablet 1 07/09/2022 Active Donepezil HCl 5 MG Oral Tablet (Aricept) Take 1 Tablet by mouth in the morning. Take with largest meal of the day.. 30 Tablet 5 09/24/2022 Active traMADol HCl 50 MG Oral Tablet (Ultram)Indication s:Chronic left shoulder pain Take 1 Tablet by [...] the morning. 30 Tablet 11 11/05/2022 Active Nystatin-Triamcino lone 373329-4.1 UNIT/GM-% External Cream (Mycolog) Apply topically to affected area 3 times a day. Apply to vagina 30 g 0 11/15/2022 Active Nitrofurantoin Monohyd Macro 100 MG Oral Capsule (Macrobid)Indicati ons:Dysuria Take 1 Capsule by mouth in the morning and 1 Capsule before bedtime. Do all this for 7 days. With food until gone. 14 Capsule 0 12/24/2022 12/31/2022 Active documented as of this encounter (statuses as of 12/27/2022) Active Problems Problem Noted Date Diagnosed Date [...] as of this encounter (statuses as of 12/27/2022) Resolved Problems Problem Noted Date Diagnosed Date [...] as of this encounter (statuses as of 12/27/2022) Immunizations Name Administration Dates Next Due Covid-19, [...] Day Cigarettes 0.5 45 Smokeless Tobacco: Never Comments:using nicotine patc h about 1 month Alcohol Use Standard Drinks/Week [...] on file documented as of this encounter Progress Notes * Dia Jenkins RN - 12/27/2022 1:22 PM EDT Music Worker Progress Note: Date: 12/27/22 Assigned Patient Tier: 2 Connected with patient's daughter, Cesilia, via telephone. Verified patient name/. Advised patient that call is being recorded for quality and training purposes. Assessment: Dtr. noted the following: Spoke with daughter, Cesilia Santamaria. Patient continues to smoke. Lies to family about how much she is smoking. Room air is "blue" when stepdaughter walks in. Air there "howe myeyes". Reports patient keeps a soda bottle with a little water in it by her chair, and puts out hercigarette right away when someone comes. Constantly reports her feet being cold. Daughter tells herif she wasn't smoking she would have better circulation to her feet. When sitting on couch, leans over, doesn't sit upright. Tells daughter she has "no strength". Legs remain weak. Working with home physical therapy - but does not do any of the follow through they recommend when they are not there.Patient tells her she is "too weak to exercise". Ambulates with walker short distances. No reports of falls since last contact. Cesilia continues her to encourage her to get up and walk more. Hx of urge incontinence. "Nothings really changed." No increase in shortness of breath. Cesilia hasn't noticed any cough at all. Cesilia assists with medications and arranging/scheduling appointments. Spouse transports,but his eyes are slowly failing and soon will not be able to anymore. Spouse is declining. Initiated discussion with Cesilia regarding plan for patient if something happens to spouse. Son, Claude, if primary POA. Cesilia is first alternate. Patient/spouse had discussed selling their home and moving to seniorliving apartment - Claude talked them out of it, as he stands to inherit the house. Discussed possible need for PCH/PENITENTIARY, or to move in with a family member, or have someone move in with her. Cesilia says she cannot move in with her, and she has steps in her home so patient cannot live with her. Points out patient is her stepmother. She is Claude's biological mother. She and Claude have talked. He states they will just have to hire someone to be with her. Cesilia said there is no "we". She cannot afford to dothat. Claude promised patient he would never put her in a custodial. This will be an ongoing, but intermittent, discussion between them. Cesilia also reports patient is "mean". Becomes irate if spouse does not get her cigarettes. Holds a grudge for years. Makes do everything for her. Denies other issues or needs at present. Did you receive an alert for an annual wellness visit? No Is this call for a hospital, custodial or rehab facility discharge to home? No Medication Reconciliation: Medication Reconciliation completed: no Review of Current goals: Discussed the following patient-centered CM goals with the patient during this discussion: -Prevention: Prevent admission/readmission -Status: On Track - Taking meds as ordered, Keeps appointments as scheduled. Participating with home health. But: continues to smoke. Poor follow through on home exercise program. -COPD: Achieve successful management of COPD -Status: At Risk - Continues to smoke - not interested in quitting. Smoking more than she admits to, or reports, per daughter. Reports sometimes when she goes, house is blue, with smoke inside. Makesher eyes burn. Not on any respiratory meds. No reports of increased shortness of breath or cough. -SAFETY: Prevent falls or injuries -Status: On Track - no reports of injuries or falls since last encounter. Continues to work with home physical therapy. Using walker with ambulation. Obtains assist as needed. COPD Patient: YES Cough: none, Breathing: Breathing at Baseline CHF Patient: NO CM Plan: Reviewed 3 Red Flags with patient. Advised to call CM with any of the following: Red Flag 1: returnof urinary symptoms, Red Flag 2: increased shortness of breath/cough, or Red Flag 3: new or uncontrolled pain/falls or injuries. Remote Patient Monitoring: At this time, RPM not offered/considered for patient due to not indicated, not needed. Plan for Future Contacts: Plan to follow up within 1 month to check progress on the following goals/needs - any further discussion re advance care planning? Walking any more? Using walker? Home Health still coming? Pain? Urine incontinence? Urinary symptoms? Shortness of breath/cough? Falls? Eating/drinking? Bowels moving? Any other changes? Planned contacts from the following parties will occur this week: home health as additional contacts per workflow. Advancement/Closure Plan: Graduate patient to the next lower tier. Tier: 3 Patient provided CM contact information and encouraged to call with any changes in condition. SNP Member? No PCP Notified of enrollment in CM/HM program: Yes, previously Is Provider in agreement with POC? Yes Dia Jenkins RN Outpatient Case Management documented in this encounter Miscellaneous Notes * ACP (Advance Care Planning) - Dia Jenkins RN - 12/27/2022 2:34 PM EDT Images from the original note were not included. Patient-centered Communication 12/27/2022 The patient/surrogate voluntarily agreed to participate in advance care planning discussion. Location: telephone Individual(s) present for conversation: Daughter(s) Decisions Additional Comments Synopsis SmartLink Most Recent Value Past ~10 years 12/27/2022 14:35 Additional Comments Additional Comments: Ongoing discussion with eduardo Santamaria. Son, Claude, is primary POA. She is first alternate. Patient/spouse - were talking about selling their home and moving into independent apartment at [facility]. Claude talked them out of it, as he is to inherit their home. Claude lives alone in a 3 bedroom house. Spouse is getting very weary and having difficulty managing patient care needs. We discussed possible need for PCH/LOLA or that patient may have to move in with afamily member, or have a family member move in with her, if something should happen to spouse. Jeffpromised patient he would never put her in a custodial. Discussed need for plan of who cares forpatient if/when something happens to spouse. 12/27/2022 Ongoing discussion with eduardo Santamaria. Son, Claude, is primary POA. She is first alternate. Patient/spouse - were talking about selling their home and moving into independent apartment at [facility]. Claude talked them out of it, as he is to inherit their home. Claude lives alone in a 3 bedroom house. Spouse is getting very weary and having difficulty managing patient careneeds. We discussed possible need for PCH/LOLA or that patient may have to move in with a family member, or have a family member move in with her, if something should happen to spouse. Claude promised patient he would never put her in a custodial. Discussed need for plan of who cares for patient if/when something happens to spouse. Discerning What Matters Most to the Patient: Synopsis SmartLink Most Recent Value Past ~10 years 12/27/2022 14:35 Discerning What Matters Most to the Patient Their current SYMPTOMS include: Tiredness;Lack of appetite 11/27/2022 Was PROGNOSIS discussed? No 12/27/2022 No The patient's HOPES are: Avoid further hospitalization 11/27/2022 Source: Content from [employer] [facility] Aligning Care With What Matters Most: No data to display Rationale for Decisions Source: Content from [employer] [facility] 0 minutes spent in direct [id number] discussion today, Dia Jenkins RN documented in this encounter Plan of Treatment Upcoming Encounters Date Type Department Care Team (Late st Contact Info) Description 02/25/2023 4:00 PM EST Office Visit Family Medicine [address] [place] [address] Denise Ley PA-C [address] [place] [address] [place] [address] 04/07/2023 1:00 PM EST Imaging Radiology [facility] 1st [facility] [address] [place] [address] 04/21/2023 1:45 PM EST Telemedicine Urology Juan Jon [address] [place] [address] Nolberto Osorio MD [address] [place] [address] 7, Telemed [facility] Urology [address] [place] [address] 05/26/2023 11:00 AM EDT Laboratory Laboratory [address] [place] [phone] [place] [address] 05/27/2023 2:30 PM EDT Office Visit Family Medicine [address] [place] [phone] [place] [address] 06/02/2023 1:00 PM EDT Office Visit Hematology/Oncology [facility] [place] [address] [place] [address] Marnie Rivera MD [address] [place] [address] 12/29/2023 12:55 PM EST Office Visit Urogynecology Brenda Stevenson [address] [place] [address] Shyla Coulter PA-C [address] [place] [address] Nurse Susanna Stevenson [address] [place] [address] Health Maintenance Due Date Last Done Comments Alpha-1 Antitrypsin 1953 DISCUSS TOBACCO CESSATION (REFER TO SMARTSET #3291) 05/22/2017 05/22/2016 DXA Scan 06/19/2019 06/18/2012, 04/26, 03/13/2005, Additional history exists Depression Screening 04/27/2022 04/27/2021 DTaP,Tdap,and Td Vaccines (2 - Td or Tdap) 10/14/2022 10/14/2012, 09/10/2007, 09/10/2007 COVID-19 Vaccine (2 - 2022- season) 2022 02/08/2022 CKD PHOS USE SMARTSET 23542 05/04/2023/, 02/19/2021, 10/14/2019, Additional history exists Albumin/Creatinine Ratio 11/20/2023 023, 12/04/2021, 02/20/2021, Additional history exists CKD HGB USE SMARTSET 53556 12/20/202312/19, 12/19/2022, 12/04/2022, Additional history exists O2 [...] this encounter Medical Devices Implanted Type Area Manager Internship Device Identifier Shelf Expiration Date Model / Serial / Lot Mesh Vicryl 6 X 6 [facility]-M - [id number] Implanted:Qty: 1 on 12/01/2006 at [place] [facility] [place] N/A: Pelvis DO NOT USE 08/25/2011 VKM-M / / [id number] Lead Tined Quad 3889-28 - [id number] Implanted:Qty: 1 on 06/29/2013 at [place] [facility] [place] N/A: Back [employer] : NEUROLOGIC PAIN 04/23/2017 3889-28 / / [id number] Generator Ipg Battery 3058 - [id number] Implanted:Qty: 1 on 07/23/2013 at [place] [facility] [place] [employer] : NEUROLOGIC PAIN 11/21/2014 3058 / [id number] / Kit Implant Tined Lead - [id number] Implanted:Qty: 1 on 11/24/2019 by Hugo Minor MD at OR [facility] Back [employer] 09/24/2021 1801 / / [id number] Description:no charge documented as of this encounter Visit Diagnoses Diagnosis Need for case management follow-up- Primary COPD, group B, by GOLD 2017 classification (HCC) Bipolar 2 disorder (HCC) Other bipolar disorders 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 (HCC) Tobacco use disorder Advanced care planning/counseling discussion Other specified counseling documented in this encounter Advance Directives Documents on File Type Date Recorded Patient Bottom Buffer Expl anation Power of Dealership Manager 06/15/2021 Viki [place] nder POWER OF ELECTRICAL TECHNICIAN Latest Code Status on File Code Status [...] Name Relationship Healthcare Agent Relationship Communication Javier Arteaga [facility] R epresentative (appointed verbally by patient or by statute hierarchy) [email or web address] Viki Santamaria [facility] Care Repr esentative (appointed verbally by patient or by statute hierarchy) [email or web address]@[email or web address] [facility] Care Repr esentative (appointed verbally by patient or by statute hierarchy) Care Teams Environmental Educator Relationship Specialty Start Date End Date Devi Luna DO [address] [place] [address] [place] [address] PCP - General Internal Medicine 11/29/16 documented as of this encounter
--- OUTSIDE RECORDS SUMMARY | 2023-01-07 20:03 | External Medical Summary | Summary of Care ---
Author Name Unknown Organization [facility] Address [address] [place] [address] Phone [phone] Care Team Providers Care Psychologist Industrial Organizational Name Role Phone Devi Luna DO Primary Care Provider Reason for Visit * Reason Onset Date Comments case management 12/24/2022 JANNY week #4 UTC x 1 Encounter Details Date Type Department Care Team (Latest Contact Info) Description 12/24/2022 Facility Worker Telephone Care Coordination [address] [place] [address] Shelli Garsia, RN [address] [place] [address] case management (JANNY week #4 UTC x 1) Allergies Active Allergy Reactions Criticality Noted Date Comments Ceftriaxone Sodium hives Cisapride Propulsid--vomiting Cisapride 09/23/2017 Iodinated Contrast Media 09/23/2017 Renografin--itching /feet only Penicillins hives Solifenacin Succinate Other (Please comment) 06/17/2008 Blurred vision at 10 mg dose documented as of this encounter (statuses as of 12/26/2022) Medications Medication Sig Dispensed Refills Start Date [...] 30 Tablet 11 11/05/2022 Active Nystatin-Triamcino lone 187238-3.1 UNIT/GM-% External Cream (Mycolog) Apply topically to [...] as of this encounter (statuses as of 12/26/2022) Active Problems Problem Noted Date Diagnosed Date [...] as of this encounter (statuses as of 12/26/2022) Resolved Problems Problem Noted Date Diagnosed Date [...] as of this encounter (statuses as of 12/26/2022) Immunizations Name Administration Dates Next Due Covid-19, Mrna, Lnp-s, Pf, B ivalent, 50 Mcg, IM, 12 yrs and above (Moderna) 02/08/2022 Pneumococcal Conjugate Vacc, 13 Valent (Prevnar) 12/07/2014 Pneumococcal Polysaccharide PPV23 (Pneumovax) 01/09/2005 SEASONAL INFLUENZA, PF, 6 M & Above, IM , (FLULAVAL or FLUZONE) 12/08/2017,11/29/2016 Seasonal Influenza, Quadriva lent Hd (Fluzone Hd) 12/19/2022,10/27/2020 Seasonal Influenza, Quadriva lent Hd, 65+ Yrs 01/21/2022 Seasonal Influenza, Quadriva lent, No Preserve, IM 01/08/2016,12/07/2014 Seasonal Influenza, Split, I IV3, With Preserve, Inj 10/27/2013,03/17/2013,01/09/2012,12/11,11/28/2009,11/15/2008,01/07/2008 ,01/08/2007,12/04/2005,12/25/2004 Seasonal Influenza, Trivalen t, Adjuvanted, 65+ yrs [...] on file documented as of this encounter Miscellaneous Notes * Telephone Encounter - Dia Jenkins RN - 12/26/2022 2:23 PM EDT Please discharge the patient from [facility] ([facility] Device(s)/IVR to be discontinued: post d/c IVR calls due to end of JANNY period. Thank you. * Telephone Encounter - Dia Jenkins RN - 12/26/2022 2:23 PM EDT Disenrolled from post discharge IVR calls. * Telephone Encounter - Shelli Garsia RN - 12/24/2022 12:12 PM EDT JANNY week #4 UTC x 1 Follow-up Routine Attempted Phone Call First Attempt Call Outcome Left Voicemail/Message Plan To attempt another outreach Will await call back Called home listed under patient, phone number is for daughter Viki- left a message on machine. Called home under spouse Edward, no answer, Left a message on machine. Will attempt to call patient again tomorrow. documented in this encounter Plan of Treatment Upcoming Encounters Date Type Department Care Team (Late st Contact Info) Description 02/25/2023 4:00 PM EST Office Visit Family [address] [place] [phone] Denise Ley PA-C [address] [place] [address] [place] [address] 04/07/2023 1:00 PM EST Imaging Radiology [address] [place] [address] 04/21/2023 1:45 PM EST Telemedicine Urology Juan Jon [address] [place] [address] Nolberto Osorio MD [address] [place] [address] 7, Telemed Gerson Stevenson Urology Ex Rm [address] [place] [address] 05/26/2023 11:00 AM EDT Laboratory Laboratory [address] [place] [phone] [place], [address] [place] [address] 05/27/2023 2:30 PM EDT Office Visit Family Medicine [address] [place] [phone] [place] [address] 06/02/2023 1:00 PM EDT Office Visit Hematology/Oncology [facility] [address] [facility] [place] [address] Marnie Rivera MD [address] [place] [address] 12/29/2023 12:55 PM EST Office Visit Urogynecology Brenda Stevenson [address] [place] [address] Shyla Coulter PA-C [address] [place] [address] Nurse Susanna Stevenson [address] [place] [address] Health Maintenance Due Date Last Done Comments Alpha-1 Antitrypsin 1953 DISCUSS TOBACCO CESSATION (REFER TO SMARTSET #3291) 05/22/2017 05/22/2016 DXA Scan 06/19/2019 06/18/2012, 04/26, 03/13/2005, Additional history exists Depression Screening 04/27/2022 04/27/2021 DTaP,Tdap,and Td Vaccines (2 - Td or Tdap) 10/14/2022 10/14/2012, 09/10/2007, 09/10/2007 COVID-19 Vaccine (2 - season) 2022 02/08/2022 CKD PHOS USE SMARTSET 88304 05/04/202304/24, 02/19/2021, 10/14/2019, Additional history exists Albumin/Creatinine Ratio 11/20/2023 023, 12/04/2021, 02/20/2021, Additional history exists CKD HGB USE SMARTSET 85521 12/20/202312/19, 12/19/2022, 12/04/2022, Additional history exists O2 [...] this encounter Medical Devices Implanted Type Area [employer] French Teacher Device Identifier Shelf Expiration Date Model / Serial / Lot Mesh Vicryl 6 X 6 Vkm-M - [id number] Implanted:Qty: 1 on 12/01/2006 at [place] [facility] [place] N/A: Pelvis DO NOT USE 08/25/2011 VKM-M / / [id number] Lead Tined Quad 3889-28 - [id number] Implanted:Qty: 1 on 06/29/2013 at [place] [facility] [place] N/A: Back [employer] : NEUROLOGIC PAIN 04/23/2017 3889-28 / / [id number] Generator Ipg Battery 3058 - [id number] Implanted:Qty: 1 on 07/23/2013 at [place] [facility] [place] [employer] : NEUROLOGIC PAIN 11/21/2014 3058 / [id number] / Kit Implant Tined Lead - [id number] Implanted:Qty: 1 on 11/24/2019 by Hugo Minor MD at OR [facility] Back [employer] 09/24/2021 1801 / / [id number] Description:no charge documented as of this encounter Advance Directives Documents on File Type Date Recorded Patient Manager Of Applications Development Expl anation Power of Estate Administrator 06/15/2021 Viki [place] nder POWER OF MENTAL RETARDATION NURSE Latest Code Status on File Code Status [...] Relationship Healthcare Agent Relationship Communication Javier Arteaga [facility] R epresentative (appointed verbally by patient or by statute hierarchy) [email or web address] Viki Santamaria [facility] Care Repr esentative (appointed verbally by patient or by statute hierarchy) [email or web address] [facility] Care Repr esentative (appointed verbally by patient or by statute hierarchy) Care Teams Psychologist Industrial Organizational Relationship Specialty Start Date End Date Devi Luna DO [address] [place] [address] [place] [address] PCP - General Internal Medicine 11/29/16 documented as of this encounter
--- OUTSIDE RECORDS SUMMARY | 2023-01-07 20:03 | External Medical Summary | Summary of Care ---
Author Name Unknown Organization [facility] Address [address] [place] [address] Phone [phone] Care Team Providers Care Automatic Engraver Name Role Phone Devi Luna DO Primary Care Provider [phone] Reason for Visit * Reason Onset Date Comments case management 12/24/2022 JANNY week #4 UTC x 1 Encounter Details Date Type Department Care Team (Latest Contact Info) Description 12/24/2022 Clinical Nutrition Manager Telephone Care Coordination [address] [place] [address] Shelli Garsia, RN [address] [place] [address] case management (JANNY week #4 UTC x 1) Allergies Active Allergy Reactions Criticality Noted Date Comments Ceftriaxone Sodium hives Cisapride Propulsid--vomiting Cisapride 09/23/2017 Iodinated Contrast Media 09/23/2017 Renografin--itching /feet only Penicillins hives Solifenacin Succinate Other (Please comment) 06/17/2008 Blurred vision at 10 mg dose documented as of this encounter (statuses as of 12/24/2022) Medications Medication Sig Dispensed Refills Start Date [...] 30 Tablet 11 11/05/2022 Active Nystatin-Triamcino lone 436212-5.1 UNIT/GM-% External Cream (Mycolog) Apply topically to [...] as of this encounter (statuses as of 12/24/2022) Active Problems Problem Noted Date Diagnosed Date [...] as of this encounter (statuses as of 12/24/2022) Resolved Problems Problem Noted Date Diagnosed Date [...] as of this encounter (statuses as of 12/24/2022) Immunizations Name Administration Dates Next Due Covid-19, [...] encounter Miscellaneous Notes * Telephone Encounter - Shelli Garsia RN - 12/24/2022 12:12 PM EDT JANNY week #4 UTC x 1 Follow-up Routine Attempted Phone Call First Attempt Call Outcome Left Voicemail/Message Plan To attempt another outreach Will await call back Called home listed under patient, phone number is for daughter Viki- left a message on machine. Called home under spouse Javier, no answer, Left a message on machine. Will attempt to call patient again tomorrow. documented in this encounter Plan of Treatment Upcoming Encounters Date Type Department Care Team (Late st Contact Info) Description 02/25/2023 4:00 PM EST Office Visit Family [address] [place] [address] Denise Ley PA-C [address] [place] [address] [place] [address] 04/07/2023 1:00 PM EST Imaging Radiology [address] 132 [facility] [place] [address] 04/21/2023 1:45 PM EST Telemedicine Urology Juan Jon [address] [place] [address] Nolberto Osorio MD [address] [place] [address] 7, Telemed [facility] Urology Ex 132 [facility] [place] [address] 05/26/2023 11:00 AM EDT Laboratory Laboratory [address] [place] [phone] Central, Lab [address] [place] [address] 05/27/2023 2:30 PM EDT Office Visit Family [address] [place] [address] [place] [address] 06/02/2023 1:00 PM EDT Office Visit Hematology/Oncology [facility] [place] [address] [place] [address] Marnie Rivera MD [address] [place] [address] 12/29/2023 12:55 PM EST Office Visit Urogynecology Brenda Stevenson [address] [place] [phone] Shyla Coulter PA-C [address] [place] [address] Nurse Susanna Stevenson [address] [place] [address] Health Maintenance Due Date Last Done Comments Alpha-1 Antitrypsin 1953 DISCUSS TOBACCO CESSATION (REFER TO SMARTSET #3291) 05/22/2017 05/22/2016 DXA Scan 06/19/2019 06/18/2012, 04/26, 03/13/2005, Additional history exists Depression Screening 04/27/2022 04/27/2021 DTaP,Tdap,and Td Vaccines (2 - Td or Tdap) 10/14/2022 10/14/2012, 09/10/2007, 09/10/2007 COVID-19 Vaccine (2 - 2022- season) 2022 02/08/2022 CKD PHOS USE SMARTSET 00729 05/04/2023 03, 02/19/2021, 10/14/2019, Additional history exists Albumin/Creatinine Ratio 11/20/2023 023, 12/04/2021, 02/20/2021, Additional history exists CKD HGB USE SMARTSET 72351 12/20/202312/19, 12/19/2022, 12/04/2022, Additional history exists O2 [...] this encounter Medical Devices Implanted Type Area Senior Web Engineer Device Identifier Shelf Expiration Date Model / Serial / Lot Mesh Vicryl 6 X 6 Vkm-M - [id number] Implanted:Qty: 1 on 12/01/2006 at OR [facility] N/A: Pelvis DO NOT USE 08/25/2011 VKM-M / / [id number] Lead Tined Quad 3889-28 - [id number] Implanted:Qty: 1 on 06/29/2013 at OR [facility] N/A: Back [employer] : NEUROLOGIC PAIN 04/23/2017 3889-28 / / [id number] Generator Ipg Battery 3058 - [id number] Implanted:Qty: 1 on 07/23/2013 at OR [facility] [employer] : NEUROLOGIC PAIN 11/21/2014 3058 / [id number] / Kit Implant Tined Lead - [id number] Implanted:Qty: 1 on 11/24/2019 by Hugo Minor MD at OR [facility] Back [employer] MOD[employer] 09/24/2021 1801 / / [id number] Description:no charge documented as of this encounter Advance Directives Documents on File Type Date Recorded Patient Machine Carton Marker Expl anation Power of Embedder 06/15/2021 Viki oviedo POWER OF LITHOGRAPHIC PRESS FEEDER Latest Code Status on File Code Status [...] Relationship Healthcare Agent Relationship Communication Javier Arteaga [facility] R epresentative (appointed verbally by patient or by statute hierarchy) [email or web address] Viki Hina [facility] Care Repr esentative (appointed verbally by patient or by statute hierarchy) [email or web address]@[employer] [facility] Repr esentative (appointed verbally by patient or by statute hierarchy) Care Teams Automatic Engraver Relationship Specialty Start Date End Date Devi Luna DO [address] [place] [address] [place] [address] PCP - General Internal Medicine 11/29/16 documented as of this encounter
--- OUTSIDE RECORDS SUMMARY | 2023-01-07 20:03 | External Medical Summary | Summary of Care ---
Author Name Unknown Organization [facility] Address [address] [place] [address] Phone [phone] Care Team Providers Care Kraft Digester Operator Name Role Phone Devi Luna DO Primary Care Provider [phone] Reason for Visit * Reason Onset Date Comments Med Request 12/30/2022 Encounter Details Date Type Department Care Team (Late st Contact Info) Description 12/30/2022 Telephone Family Medicine [address] [phone] Devi Luna DO [address] [place] [address] [place] [id number] Med Request Allergies Active Allergy Reactions Criticality Noted Date Comments Ceftriaxone Sodium hives Cisapride Propulsid--vomiting Cisapride 09/23/2017 Iodinated Contrast Media 09/23/2017 Renografin--itching /feet only Penicillins hives Solifenacin Succinate Other (Please comment) 06/17/2008 Blurred vision at 10 mg dose documented as of this encounter (statuses as of 01/01/2023) Medications Medication Sig Dispensed Refills Start Date End Date Status VITAMIN D 1000 UNIT PO CAPSIndications: Vitamin D deficiency 1 capsule daily 1 Cap 0 04/19/2010 Active B-12 1000 MCG PO CAPSIndications: B12 deficiency one pill each day 1 Cap 0 03/02/2014 Active Multiple Vitamins-Mineral s (HAIR SKIN AND NAILS FORMULA) TABS Take by mouth. 0 10/23/2018 Active Loratadine 10 MG Oral Capsule Take 1 Capsule by mouth in the morning. 0 Active Ferrous Sulfate 325 (65 Fe) MG Oral Tablet (Feosol) Take 1 Tablet by mouth. 1 tab every other day 0 Active lamoTRIgine 25 MG Oral Tablet (LaMICtal)Indica tions:Bipolar 2 disorder (HCC),Current mild episode of major depressive disorder without prior episode (HCC) Take 1 Tablet by mouth in the morning. 90 Tablet 1 07/09/2022 Active Donepezil HCl 5 MG Oral Tablet (Aricept) Take 1 Tablet by mouth in the morning. Take with largest meal of the day.. 30 Tablet 5 09/24/2022 Active traMADol HCl 50 MG Oral Tablet (Ultram)Indicati ons:Chronic left shoulder pain Take 1 Tablet by [...] the morning. 30 Tablet 11 11/05/2022 Active Nystatin-Triamci nolone 322778-9.1 UNIT/GM-% External Cream (Mycolog) Apply topically to affected area 3 times a day. Apply to vagina 30 g 0 11/15/2022 Active hydroCHLOROthiaz meenu 12.5 MG Oral Capsule (Hydrodiuril) Take 1 Capsule by mouth in the morning. 30 Capsule 5 12/31/2022 Active Sertraline HCl 50 MG Oral Tablet (Zoloft)Indicati ons:Bipolar 2 disorder (HCC),Current mild episode of major depressive disorder without prior episode (HCC) Take 1.5 Tablets by mouth in the morning. 135 Tablet 2 01/01/2023 Active Sertraline HCl 50 MG Oral Tablet (Zoloft)Indicati ons:Bipolar 2 disorder (HCC),Current mild episode of major depressive disorder without prior episode (HCC) Take 1.5 Tablets by mouth in the morning. 135 Tablet 1 07/09/2022 12/31/2022 Discontinued (Refill) Nitrofurantoin Monohyd Macro 100 MG Oral Capsule (Macrobid)Indica tions:Dysuria Take 1 Capsule by mouth in the morning and 1 Capsule before bedtime. Do all this for 7 days. With food until gone. 14 Capsule 0 12/24/2022 12/31/2022 documented as of this encounter (statuses as of 01/01/2023) Active Problems Problem Noted Date Diagnosed Date [...] as of this encounter (statuses as of 01/01/2023) Resolved Problems Problem Noted Date Diagnosed Date [...] as of this encounter (statuses as of 01/01/2023) Immunizations Name Administration Dates Next Due Covid-19, [...] encounter Miscellaneous Notes * Telephone Encounter - Rebeca Giles RN - 12/31/2022 3:49 PM EST Daughter aware. Also pt needs a refill of her Sertraline sent * Telephone Encounter - Devi Luna DO - 12/31/2022 8:38 AM EST Start HCTZ 12.5 mg daily. Call at end of the week with an update. * Telephone Encounter - Zee Hatfield LPN - 12/30/2022 3:25 PM EST HH Concerns Devi RN, Calling from: [place] Report/Concerns of: Edema Symptoms: +1-2 pitting edema in left lower leg Vitals: T 97.8 P85 RR 18 BP 120/60 SP O2 92% RA Lung sounds: Diminished in the bases, she is a smoker Weight 168.9lb Narrative: Devi calling in stating that patient has increased swelling in her left lower extremity, +1-2 pitting edema since her last visit on 12/24/2022. She is no longer taking a fluid pill. Patient told them her weight last week was 164lb but she is not too sure on the accuracy of this weight. She is a little more SOB this visit compared to her last one on 12/24/2022 Call back Devi with any advice or orders at [phone] Please also relay any advise to patient documented in this encounter Plan of Treatment Upcoming Encounters Date Type Department Care Team (Late st Contact Info) Description 02/25/2023 4:00 PM EST Office Visit Family Medicine [address] [place] [phone] Denise Ley PA-C [address] [place] [address] [place] [address] 04/07/2023 1:00 PM EST Imaging Radiology [facility] [address] [facility] [address] [place] [address] 04/21/2023 1:45 PM EST Telemedicine Urology Juan Jon [address] [place] [address] Nolberto Osorio MD [address] [place] [address] 7, Telemed [facility] Urology Ex Rm [address] [place] [address] 05/26/2023 11:00 AM EDT Laboratory Laboratory [address] [place] [address] [place] [address] 05/27/2023 2:30 PM EDT Office Visit Family Medicine [address] [place] [phone] Devi Luna DO [address] [place] [address] [place] [address] 06/02/2023 1:00 PM EDT Office Visit Hematology/Oncology [employer] [address] [place] [address] Marnie Rivera MD [address] [place] [address] 12/29/2023 12:55 PM EST Office Visit Urogynecology Brenda Stevenson [address] [place] [address] Shyla Coulter PA-C [address] [place] [address] Nurse Susanna Stevenson [place] [address] [place] [address] Health Maintenance Due Date Last Done Comments Alpha-1 Antitrypsin 1953 DISCUSS TOBACCO CESSATION (REFER TO SMARTSET #3291) 05/22/2017 05/22/2016 DXA Scan 06/19/2019 06/18/2012, 04/26, 03/13/2005, Additional history exists Depression Screening 04/27/2022 04/27/2021 DTaP,Tdap,and Td Vaccines (2 - Td or Tdap) 10/14/2022 10/14/2012, 09/10/2007, 09/10/2007 COVID-19 Vaccine (2 - 2022- season) 2022 02/08/2022 CKD PHOS USE SMARTSET 87047 05/04/202304/24, 02/19/2021, 10/14/2019, Additional history exists Albumin/Creatinine Ratio 11/20/2023 023, 12/04/2021, 02/20/2021, Additional history exists CKD HGB USE SMARTSET 98059 12/20/202312/19, 12/19/2022, 12/04/2022, Additional history exists O2 [...] this encounter Medical Devices Implanted Type Area Corridor Redevelopment Manager Device Identifier Shelf Expiration Date Model / Serial / Lot Mesh Vicryl 6 X 6 Vkm-M - [id number] Implanted:Qty: 1 on 12/01/2006 at OR [facility] N/A: Pelvis DO NOT USE 08/25/2011 VKM-M / / [id number] Lead Tined Quad 3889-28 - [id number] Implanted:Qty: 1 on 06/29/2013 at OR [facility] N/A: Back [employer] : NEUROLOGIC PAIN 04/23/2017 3889-28 / / [id number] Generator Ipg Battery 3058 - [id number] Implanted:Qty: 1 on 07/23/2013 at OR [facility] [employer] : NEUROLOGIC PAIN 11/21/2014 3058 / [id number] / Kit Implant Tined Lead - [id number] Implanted:Qty: 1 on 11/24/2019 by Hugo Minor MD at OR [facility] Back [employer] 09/24/2021 1801 / / [id number] Description:no charge documented as of this encounter Visit Diagnoses Diagnosis Bipolar 2 disorder (HCC) Other bipolar disorders Current mild episode of major depressive disorder without prior episode (HCC) documented in this encounter Advance Directives Documents on File Type Date Recorded Patient Distributor Sales Manager Expl anation Power of Severity Of Illness Coordinator 06/15/2021 Viki [place] nder POWER OF FLAVORING MACHINE OPERATOR Latest Code Status on File Code Status [...] File Name Relationship Healthcare Agent Relationship Communication Edward O Millinder Spouse Health Care R epresentative (appointed verbally by patient or by statute hierarchy) [email or web address] Viki Santamaria [facility] Care Repr esentative (appointed verbally by patient or by statute hierarchy) [email or web address] [facility] Repr esentative (appointed verbally by patient or by statute hierarchy) Care Teams Kraft Digester Operator Relationship Specialty Start Date End Date Devi Luna DO [address] [place] [address] [place] [address] PCP - General Internal Medicine 11/29/16 documented as of this encounter
--- OUTSIDE RECORDS SUMMARY | 2023-01-07 20:03 | External Medical Summary | Summary of Care ---
Author Name Unknown Organization [facility] Address [address] [place] [address] Phone [phone] Care Team Providers Care Reconnaissance Man Name Role Phone Devi Luna DO Primary Care Provider Reason for Visit * Reason Onset Date Comments Test Results 12/24/2022 Encounter Details Date Type Department Care Team (Late st Contact Info) Description 12/24/2022 Telephone Family Medicine [address] [phone] Denise Ley PA-C [address] [place] [address] [place] [address] Test Results Allergies Active Allergy Reactions Criticality Noted Date [...] 30 Tablet 11 11/05/2022 Active Nystatin-Triamcino lone 161385-8.1 UNIT/GM-% External Cream (Mycolog) Apply topically to [...] 0.5 45 Smokeless Tobacco: Never Comments:using nicotine pat h about 1 month Alcohol Use Standard [...] encounter Miscellaneous Notes * Telephone Encounter - Denise Ley PA-C - 12/24/2022 11:17 AM EDT MyG sent documented in this encounter Plan of Treatment Upcoming Encounters Date Type Department Care Team (Late st Contact Info) Description 02/25/2023 4:00 PM EST Office Visit Family [address] [place] [phone] Denise Ley PA-C [address] [place] [address] [place] [address] 04/07/2023 1:00 PM EST Imaging Radiology [address] [place] [address] 04/21/2023 1:45 PM EST Telemedicine Urology Juan Jon [address] [place] [address] Nolberto Osorio MD [address] [place] [address] 7, Telemed [facility] Urology Ex [address] [place] [address] 05/26/2023 11:00 AM EDT Laboratory Laboratory [address] [place] [address] [place] [address] 05/27/2023 2:30 PM EDT Office Visit Family Medicine [address] [place] [phone] Devi Luna [address] [place] [address] 06/02/2023 1:00 PM EDT Office Visit Hematology/Oncology [facility] [place] 200 [facility] [place], [place] [address] Marnie Rivera MD 200 [facility] [place] [address] 12/29/2023 12:55 PM EST Office Visit Urogynecology [facility] [address] [place] [address] Shyla Coulter PA-C [address] [place] [address] Nurse Susanna Stevenson [address] [place] [address] Health Maintenance Due Date Last Done Comments Alpha-1 Antitrypsin 1953 DISCUSS TOBACCO CESSATION (REFER TO SMARTSET #3291) 05/22/2017 05/22/2016 DXA Scan 06/19/2019 06/18/2012, 04/26, 03/13/2005, Additional history exists Depression Screening 04/27/2022 04/27/2021 DTaP,Tdap,and Td Vaccines (2 - Td or Tdap) 10/14/2022 10/14/2012, 09/10/2007, 09/10/2007 COVID-19 Vaccine (2 - 2022-24 season) 2022 02/08/2022 CKD PHOS USE SMARTSET 72010 05/04/202304/24, 02/19/2021, 10/14/2019, Additional history exists Albumin/Creatinine Ratio 11/20/2023 023, 12/04/2021, 02/20/2021, Additional history exists CKD HGB USE SMARTSET 52269 12/20/202312/19, 12/19/2022, 12/04/2022, Additional history exists O2 [...] this encounter Medical Devices Implanted Type Area Treating Plant Operator Device Identifier Shelf Expiration Date Model / Serial / Lot Mesh Vicryl 6 X 6 Vkm-M - [id number] Implanted:Qty: 1 on 12/01/2006 at OR [facility] N/A: Pelvis DO NOT USE 08/25/2011 VKM-M / / [id number] Lead Tined Quad 3889-28 - [id number] Implanted:Qty: 1 on 06/29/2013 at OR [facility] N/A: Back [employer] : NEUROLOGIC PAIN 04/23/2017 3889-28 / / [id number] Generator Ipg Battery 3058 - [id number] Implanted:Qty: 1 on 07/23/2013 at OR [facility] [employer] : NEUROLOGIC PAIN 11/21/2014 3058 / [id number] / Kit Implant Tined Lead - [id number] Implanted:Qty: 1 on 11/24/2019 by Hugo Minor MD at OR [facility] Back [employer] 09/24/2021 1801 / / [id number] Description:no charge documented as of this encounter Visit Diagnoses Diagnosis Dysuria- Primary documented in this encounter Advance Directives Documents on File Type Date Recorded Patient Folding Machine Feeder Expl anation Power of Shank Archer 06/15/2021 Viki oviedo POWER OF METAL BOX MAKER Latest Code Status on File Code Status [...] Relationship Healthcare Agent Relationship Communication Javier Arteaga [facility] R epresentative (appointed verbally by patient or by statute hierarchy) [email or web address] Vikideven Santamaria [facility] Care Repr esentative (appointed verbally by patient or by statute hierarchy) [email or web address] [facility] Repr esentative (appointed verbally by patient or by statute hierarchy) Care Teams Reconnaissance Man Relationship Specialty Start Date End Date Devi Luna DO [address] [place] [address] [place] [address] PCP - General Internal Medicine 11/29/16 documented as of this encounter
--- OUTSIDE RECORDS SUMMARY | 2023-01-07 20:03 | External Medical Summary | Summary of Care ---
Author Name Unknown Organization [facility] Address [address] [place] [address] Phone [phone] Care Team Providers Care Cooky Packer Name Role Phone Devi Luna DO Primary Care Provider [phone] Reason for Visit * Reason Onset Date Comments case management 12/27/2022 JANNY week #4. [facility] x2 Encounter Details Date Type Department Care Team (Latest Contact Info) Description 12/27/2022 Cow Tester Telephone Care Coordination [address] [place] [address] Shelli Garsia, RN [address] [place] [address] case management (JANNY week #4. [facility] x2) Allergies Active Allergy Reactions Criticality Noted Date [...] 30 Tablet 11 11/05/2022 Active Nystatin-Triamcino lone 005076-5.1 UNIT/GM-% External Cream (Mycolog) Apply topically to [...] Telephone Encounter - Shelli Garsia RN - 12/27/2022 11:08 AM EDT Received voicemail from daughter Cesilia. Attempted to call Cesilia back on landline and mobile- no answer LMOM on both machines. Follow-up Routine Attempted Phone Call Second Attempt Call Outcome Left Voicemail/Message Plan To attempt another outreach Will await call back. documented in this encounter Plan of Treatment Upcoming Encounters Date Type Department Care Team (Late st Contact Info) Description 02/25/2023 4:00 PM EST Office Visit Family [address] [place] [phone] Denise Ley PA-C [address] [place] [address] [place] [address] 04/07/2023 1:00 PM EST Imaging Radiology [address] [facility] [place] [address] 04/21/2023 1:45 PM EST Telemedicine Urology Juan Jon [address] [place] [address] Nolberto Osorio MD [address] [place] [address] 7, Telemed [facility] Urology Ex [address] [facility] [place] [address] 05/26/2023 11:00 AM EDT Laboratory Laboratory [address] [place] [phone] [place] [address] 05/27/2023 2:30 PM EDT Office Visit Family [address] [place] [phone] Luna, Devi Nichols[address] [place] [address] 06/02/2023 1:00 PM EDT Office Visit Hematology/Oncology [facility] Raisa Colmenares [address] [place] [address] Marnie Rivera MD [address] [place] [address] 12/29/2023 12:55 PM EST Office Visit Urogynecology Brenda Stevenson [address] [place] [address] Shyla Coulter PA-C [address] [place] [address] Nurse Susanna Stevenson [address] [place] [address] Health Maintenance Due Date Last Done Comments Alpha-1 Antitrypsin 1953 DISCUSS TOBACCO CESSATION (REFER TO SMARTSET #3291) 05/22/2017 05/22/2016 DXA Scan 06/19/2019 06/18/2012, 04/26, 03/13/2005, Additional history exists Depression Screening 04/27/2022 04/27/2021 DTaP,Tdap,and Td Vaccines (2 - Td or Tdap) 10/14/2022 10/14/2012, 09/10/2007, 09/10/2007 COVID-19 Vaccine (2 - 2022- season) 2022 02/08/2022 CKD PHOS USE SMARTSET 49183 05/04/202304/24, 02/19/2021, 10/14/2019, Additional history exists Albumin/Creatinine Ratio 11/20/2023 023, 12/04/2021, 02/20/2021, Additional history exists CKD HGB USE SMARTSET 54091 12/20/202312/19, 12/19/2022, 12/04/2022, Additional history exists O2 [...] this encounter Medical Devices Implanted Type Area Semiconductor Wafers Marker Device Identifier Shelf Expiration Date Model / Serial / Lot Mesh Vicryl 6 X 6 VkCloudary-M - [id number] Implanted:Qty: 1 on 12/01/2006 at [place] [facility] [place]/A: Pelvis DO NOT USE 08/25/2011 VKM-M / / [id number] Lead Tined Quad 3889-28 - [id number] Implanted:Qty: 1 on 06/29/2013 at [place] [facility] N/A: Back [employer] : NEUROLOGIC PAIN 04/23/2017 3889-28 / / [id number] Generator Ipg Battery 3058 - [id number] Implanted:Qty: 1 on 07/23/2013 at [place] [facility] [employer] : NEUROLOGIC PAIN 11/21/2014 3058 / [id number] / Kit Implant Tined Lead - [id number] Implanted:Qty: 1 on 11/24/2019 by Hugo Minor MD at OR [facility] Back [employer] MODULATION [employer] 09/24/2021 1801 / / [id number] Description:no charge documented as of this encounter Advance Directives Documents on File Type Date Recorded Patient Tablet Tester Expl anation Power of Geoscientist 06/15/2021 Viki [place] nder POWER OF SOFT SUGAR OPERATOR HEAD Latest Code Status on File Code Status [...] Relationship Healthcare Agent Relationship Communication Javier Arteaga [facility] R epresentative (appointed verbally by patient or by statute hierarchy) [email or web address] Viki Santamaria [facility] Care Repr esentative (appointed verbally by patient or by statute hierarchy) [email or web address] [facility] Repr esentative (appointed verbally by patient or by statute hierarchy) Care Teams Cooky Packer Relationship Specialty Start Date End Date Devi Luna DO [address] [place] [address] [place] [phone] PCP - General Internal Medicine 11/29/16 documented as of this encounter
--- OUTSIDE RECORDS SUMMARY | 2023-01-07 20:04 | External Medical Summary ---
Author Name Unknown Address Unknown Organization K01:LAB[facility]ATORY [facility] - [address] [facility] [address] Laboratory Report Ordering Provider Test Date Status PREMA SULLIVAN 12/20/2022 09:28:42 Final <10,000 colonies/ml mixed no rmal elieser Observation Date Value Abnormality Reference (Units ) Status Bacteria identified in Specimen by Culture 12/20/2022 09:28:42 [id number]^ESCHE RICHIA COLI Abnormal Final 10,000 to 100,000 colonies/m L Escherichia coli Performing Location LAB[facility]ATORY [facility] - [address] [place] [address] [address] Ordering Provider Test Date Status DANIELE SULLIVANRICHIE 12/20/2022 09:28:42 Final Observation Date Value Abnormality Reference (Units ) Status Ampicillin 12/20/2022 09:28:42 >=32 Resistant Final Ampicillin + Sulbactam 12/20/2022 09:28:42 16 Intermediate Final Cefazolin 12/20/2022 09:28:42 <=4 Susceptible Final Cefepime susceptibility 12/20/2022 09:28:42 <=1 Susceptible Final Ceftriaxone suceptibility 12/20/2022 09:28:42 <=1 Susceptible Final Ciprofloxacin 12/20/2022 09:28:42 >=4 Resistant Final Due to serious side effects, the FDA has advised against using Ciprofloxacin to treat uncomplicated UTIs and respiratory tract infections unless there are no alternative treatment options. Gentamicin susceptibility 12/20/2022 09:28:42 <=1 Susc eptible Final Levofloxacin susceptibility 12/20/2022 09:28:42 >=8 Re sistant Final Due to serious side effects, the FDA has advised against using Levofloxacin to treat uncomplicated UTIs and respiratory tract infections unless there are no alternative treatment options. Nitrofurantoin susceptibility 12/20/2022 09:28:42 <=16 Susceptible Final Piperacillin + Tazobactamsusceptibility 12/20/2022 09:28:42 <=4 Susceptible Final TMP-SMZ susceptibility 12/20/2022 09:28:42 >=320 Resista nt Final Test: Culture, Urine, Quanti tative
Specimen Source: Urine, Clean Catch
Specimen Type: Urine
Specimen Date: 12/20/2022 9:28 AM
Result Date: 12/23/2022 3:01 PM
Result Status: Final result
Abnormal: Yes
Resulting Lab: LAB[facility]ATORY [facility]
[address]
[facility] [address]

CULTURE

10,000 to 100,000 colonies/mL Escherichia coli (Abnormal)

<10,000 colonies/ml mixed normal elieser

SUSCEPTIBILITY

Escherichia coli
METHOD MICROBROTH DILUTIONS

AMPICILLIN >=32 Resistant
AMPICILLIN/SULBACTAM 16 Intermediate
CEFAZOLIN <=4 Susceptible
CEFEPIME <=1 Susceptible
CEFTRIAXONE <=1 Susceptible
CIPROFLOXACIN >=4 Resistant [1]
GENTAMICIN <=1 Susceptible
LEVOFLOXACIN >=8 Resistant [2]
NITROFURANTOIN <=16 Susceptible
PIPERACILLIN TAZOBACTAM <=4 Susceptible
TRIMETH/SULFAMETHOXAZOLE >=320 Resistant

[1] Due to serious side effects, the FDA has advised against using
Ciprofloxacin to treat uncomplicated UTIs and respiratory tract infections
unless there are no alternative treatment options.

[2] Due to serious side effects, the FDA has advised against using
Levofloxacin to treat uncomplicated UTIs and respiratory tract infections
unless there are no alternative treatment options.

null Performing Location LABORATORY [facility] - [address] [facility] [address]
--- OUTSIDE RECORDS SUMMARY | 2023-01-07 20:04 | External Medical Summary | Summary of Care ---
Author Name Unknown Organization [facility] Address [address] [place] [address] Phone [phone] Care Team Providers Care Brim And Crown Presser Name Role Phone Devi Luna DO Primary Care Provider Reason for Visit * Reason Onset Date Comments case management 12/17/2022 JANNY Week #3 Encounter Details Date Type Department Care Team (Latest Contact Info) Description 12/17/2022 Philosophy Lecturer Telephone Care Coordination [address] [place], [place] [phone] Shelli Garsia, ASIF [address] [place] [address] case management (JANNY Week #3) Allergies Active Allergy Reactions Criticality Noted Date Comments Ceftriaxone Sodium hives Cisapride Propulsid--vomiting Cisapride 09/23/2017 Iodinated Contrast Media 09/23/2017 Renografin--itching /feet only Penicillins hives Solifenacin Succinate Other (Please comment) 06/17/2008 Blurred vision at 10 mg dose documented as of this encounter (statuses as of 12/17/2022) Medications Medication Sig Dispensed Refills Start Date [...] 30 Tablet 11 11/05/2022 Active Nystatin-Triamcino lone 938907-9.1 UNIT/GM-% External Cream (Mycolog) Apply topically to affected area 3 times a day. Apply to vagina 30 g 0 11/15/2022 Active Doxycycline Hyclate 100 MG Oral CapsuleIndications :Generalized weakness,Bacteremi a,Chronic cough Take 1 Capsule by mouth in the morning and 1 Capsule before bedtime. Do all this for 14 days. Until gone.. 28 Capsule 0 12/05/2022 12/19/2022 Active documented as of this encounter (statuses as of 12/17/2022) Active Problems Problem Noted Date Diagnosed Date [...] as of this encounter (statuses as of 12/17/2022) Resolved Problems Problem Noted Date Diagnosed Date [...] as of this encounter (statuses as of 12/17/2022) Immunizations Name Administration Dates Next Due Covid-19, Mrna, Lnp-s, Pf, B ivalent, 50 Mcg, IM, 12 yrs and above (Moderna) 02/08/2022 Pneumococcal Conjugate Vacc, 13 Valent (Prevnar) 12/07/2014 SEASONAL INFLUENZA, PF, 6 M & Above, IM , (FLULAVAL or FLUZONE) 12/08/2017,11/29/2016 Seasonal Influenza, Quadriva lent Hd (Fluzone Hd) 10/27/2020 Seasonal Influenza, Quadriva lent Hd, 65+ Yrs [...] Telephone Encounter - Shelli Garsia RN - 12/17/2022 1:49 PM EDT JANNY Week #3 No issues with fluid retention, no edema. Kidney function has improved, traimterene was on hold for LAUREANO, daughter is stating that the pharmacy continues to fill despite it being discontinued, explained that it was discontinued in the chart, patient has follow up with Denise LYNN on 12/19, will make her aware, daughter will also ask at appointment. Patient told daughter that her felt that her feet were frozen. Daughter states that they were almost blue. Daughter states that she is still smoking, she states that she won't quit, she complains about her feet being cold, will not wear the warm socks her daughter bought her, won't walk or get up and move, she can, she just chooses not to. The only time that she moves around is when Physical Therapy is present. Not on oxygen. Completed ciprofloxacin. Checks pulse ox at home, patient spouse states that "it has been good." Unable to report numbers. Daughter states that if patients does not buy her cigarettes, she will throw something against the wall or at him. Patient states that she is not smoking, but when daughter walks in to the house, it is full of cigarette smoke, to the point where she can't stay long because it makes her eyeswater. Patients spouse admits to patient smoking, and buying her cigarettes. Explained that if the patient is unwilling to quit smoking, we cannot change that. Our goal is to manage her COPD the best we can, which is ensuring she takes her medications and reports any new or increased shortness of breath, new cough, etc. Daughter verbalizes understanding. Daughter is unsure if she will be able to attend follow up appointment on 12/19 because of taking care of her granddaughter, she will make sure that spouse asks about the tiamterene. Will send message to A Jil LYNN. documented in this encounter Plan of Treatment Upcoming Encounters Date Type Department Care Team (Late st Contact Info) Description 12/19/2022 1:00 PM EDT Office Visit [address] [place] [phone] Denise Ley PA-C [address] [place] [address] [place] [address] 12/23/2022 10:45 AM EDT Office Visit Urogynecology [facility] [address] [place] [address] Shyla Coulter PA-C [address] [place] [address] StevensonNurse Susanna tsang Gerson [address] [place] [address] 04/07/2023 1:00 PM EST Imaging Radiology [facility] [address] [place] [address] 04/21/2023 1:45 PM EST Telemedicine Urology Juan Jon [address] [place] [address] Nolberto Osorio MD [address] [place] [address] 7, Telemed [facility] Urology Ex Rm [address] [place] [address] 05/26/2023 11:00 AM EDT Laboratory Laboratory [address] [place] [phone] [place] [address] 05/27/2023 2:30 PM EDT Office Visit Family Medicine [address] [phone] [place] [address] 06/02/2023 1:00 PM EDT Office Visit Hematology/Oncology [facility] [address] [place] [address] Marnie Rivera MD [address] [place] [address] Health Maintenance Due Date Last Done Comments Alpha-1 Antitrypsin 1953 DISCUSS TOBACCO CESSATION (REFER TO SMARTSET #3291) 05/22/2017 05/22/2016 DXA Scan 06/19/2019 06/18/2012, 04/26, 03/13/2005, Additional history exists Depression Screening 04/27/2022 04/27/2021 DTaP,Tdap,and Td Vaccines (2 - Td or Tdap) 10/14/2022 10/14/2012, 09/10/2007, 09/10/2007 COVID-19 Vaccine (2 - 2022- season) 2022 02/08/2022 Influenza Vaccine (FLU shot) (#1) 2022 01/21/2022, 10/27/2020, 12/17/2019, Additional history exists CKD PHOS USE SMARTSET 85900 05/04/202304/24, 02/19/2021, 10/14/2019, Additional history exists Albumin/Creatinine Ratio 11/20/2023 023, 12/04/2021, 02/20/2021, Additional history exists CKD HGB USE SMARTSET 05200 12/05/202312/04, 12/04/2022, 11/27/2022, Additional history exists O2 ASSESSMENT COMPLETED IN PAST YEAR FOR COPD 12/11/2023 12/10/2022 Pneumococcal Vaccine: 65+ Years Completed 12/07/2014, 01/09/2005 Zoster Vaccines Completed 12/24/2019, 09/25, 01/20/2012 GARDASIL-HPV IMMUNIZATION SERIES Aged Out No longer eligible based on patient's age to complete this topic Hepatitis B Aged Out No longer eligi ble based on patient's age to complete this topic MENINGOCOCCAL (MENACTRA/MENVEO) Aged Out No longer eligible based on patient's age to complete this topic documented as of this encounter Medical Devices Implanted Type Area Drop Board Worker Device Identifier Shelf Expiration Date Model / Serial / Lot Mesh Vicryl 6 X 6 Vk-M - [id number] Implanted:Qty: 1 on 12/01/2006 at [place] [facility] [place] N/A: Pelvis DO NOT USE 08/25/2011 VKM-M / / [id number] Lead Tined Quad 3889-28 - [id number] Implanted:Qty: 1 on 06/29/2013 at [place] [facility] [place] N/A: Back [employer] : NEUROLOGIC PAIN 04/23/2017 3889-28 / / [id number] Generator Ipg Battery 3058 - [id number] Implanted:Qty: 1 on 07/23/2013 at [place] [facility] [place] [employer] : NEUROLOGIC PAIN 11/21/2014 3058 / [id number] / Kit Implant Tined Lead - [id number] Implanted:Qty: 1 on 11/24/2019 by Hugo Minor MD at OR [facility] Back [employer] 09/24/2021 1801 / / [id number] Description:no charge documented as of this encounter Advance Directives Documents on File Type Date Recorded Patient Cone Trucker Expl anation Power of Refueling Ramp Supervisor 06/15/2021 Viki [place] nder POWER OF BAKED AND GRAPHITE INSPECTOR Latest Code Status on File Code Status [...] Name Relationship Healthcare Agent Relationship Communication Javier Rose [facility] Health Care R epresentative (appointed verbally by patient or by statute hierarchy) [email or web address] Viki Foreman Child Health Care Repr esentative (appointed verbally by patient or by statute hierarchy) [email or web address] [facility] Care Repr esentative (appointed verbally by patient or by statute hierarchy) Care Teams Brim And Crown Presser Relationship Specialty Start Date End Date Devi Luna DO [address] [place] [address] [place] [phone] PCP - General Internal Medicine 11/29/16 documented as of this encounter
--- OUTSIDE RECORDS SUMMARY | 2023-01-07 20:04 | External Medical Summary | Summary of Care ---
Author Name Unknown Organization [facility] Address [address] [place] [address] Phone [phone] Care Team Providers Care Heating Plant Superintendent Name Role Phone LunaDevi masterson Primary Care Provider Reason for Visit * Reason Comments Outpatient Testing Encounter Details Date Type Department Care Team Description 12/13/2022 Laboratory Laboratory [address] [place] [phone] [place] [address] Chronic kidney disease, stage 3b (HCC) Allergies Active Allergy Reactions Severity Noted Date Comments Ceftriaxone Sodium hives Cisapride Propulsid--vomiting Cisapride 09/23/2017 Iodinated Contrast Media 09/23/2017 Renografin--itching/ feet only Penicillins hives Solifenacin Succinate Other (Please comment) 06/17/2008 Blurred vision at 10 mg dose documented as of this encounter (statuses as of 12/13/2022) Medications Medication Sig Dispensed Refills Start Date [...] 30 Tablet 11 11/05/2022 Active Nystatin-Triamcino lone 304244-6.1 UNIT/GM-% External Cream (Mycolog) Apply topically to [...] as of this encounter (statuses as of 12/13/2022) Active Problems Problem Noted Date Mitral valve stenosis, moderate 05/28/19 Nonrheumatic aortic valve insufficiency 05/27/2022 Mild pulmonary hypertension 05/27/2022 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 05/03/2022 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 05/03/2022 Bipolar 2 disorder 12/04/2021 History of violent behavior 12/04/2021 Iron deficiency anemia 11/15/2021 Renal mass 08/23/2021 Overview: LEFT COPD, group B, by GOLD 2017 classificati on 03/05/2021 Overview: Per COPD GOLD Classification Chronic kidney disease, stage 3b 021 Overview: Per CKD protocol Hypertensive kidney disease with stage 3 b chronic kidney disease 11/06/2020 Overview: Per CKD protocol Current mild episode of major depressive disorder without prior episode 06/02/2020 Gastro-esophageal reflux disease without esophagitis 06/02/2020 Mucopurulent chronic bronchitis 04/26/19 Hyperparathyroidism 04/26/2019 Esophageal dysmotility 04/26/2019 Chronic bilateral low back pain without sciatica 11/18/2018 H/O fracture of vertebral column 017 Vaginal pessary present 11/29/2016 Essential hypertension with goal blood p ressure less than 140/90 11/20/2015 Depression with anxiety 10/26/2014 B12 deficiency 03/02/2014 Prolapse of vaginal vault after hysterec elizabeth 04/19/2013 Cystocele, lateral 04/19/2013 Allergic rhinitis 10/14/2012 Tobacco use disorder 06/12/2012 Slow transit constipation 09/21/2008 LUMB-LUMBOSAC DISC DEGEN 01/09/2005 THORACIC DISC DEGEN 01/09/2005 Urge incontinence 09/29/2004 GENERAL OSTEOARTHROSIS Peripheral vascular disease Aspirin intolerance documented as of this encounter (statuses as of 12/13/2022) Resolved Problems Problem Noted Date Resolved Date Unspecified dementia, unspecified severity, with agitation 05/03/2022 05/03/2022 Dementia with behavioral disturbance 10/18/2020 08/21/2021 Chronic kidney disease, stage 3a 07/04/2020 08/10/2020 Overview: Per CKD protocol Chronic obstructive pulmonary disease 06/02/2020 03/08/2021 Overview: Per COPD GOLD Classification Chronic kidney disease, stage 3b 06/02/2020 01/10/2021 Overview: Duplicate. Hypertensive kidney disease with stage 3a chronic kidney disease 01/03/2020 11/09/2020 Overview: Per CKD protocol Unspecified inflammatory spondylopathy, lumbar r egion 04/26/2019 10/08/2019 Hypertensive kidney disease with chronic kidney disease stage III 10/09/2018 01/06/2020 Overview: Per CKD protocol ADVANCE DIRECTIVE INFORMATION 08/22/2017 Overview: Yes, copy scanned at patient level in the electronic medical record. Patient aware they must notify their healthcare provider of changes. (Go to More Activities and Patient Files to view) FH: breast cancer in first degree relative 05/2211/29/2016 HTN, goal below 140/90 05/09/2014 6 Hypertension goal BP (blood pressure) < 140/80 1 03/27/2013 05/09/2014 Kidney disease, chronic, stage III (GFR 30-59 ml /min) 01/14/2012 11/04/2019 GERD (gastroesophageal reflux disease) 2 11/29/2016 Periodic limb movement disorder 05/21/2011 08/21/2021 Major depressive disorder 06/21/20102014 Overview: ICD-10 update of inactive term Vitamin D deficiency 09/25/2009 11/29/2016 Carpal tunnel syndrome 09/22/2009 7 BMI 37.15 05/22/2009 11/29/2016 Overview: Per Obesity Taxonomy BMI: 37.15 kg/m HTN, goal below 130/80 03/24/2009 12/01/201 4 Dyslipidemia, goal LDL below 100 02/08/2009 05/03/2022 Overview: Per Lipid Taxonomy. Venous insufficiency 07/09/2006 11/29/2016 Prolapse of vaginal wall 06/11/2006 008 Overview: ICD-10 update of inactive term Morbid obesity, BMI not known 06/04/2006 Major depressive disorder, single episode, sever e 06/04/2006 10/10/2010 Carpal tunnel syndrome 04/10/2005 8 Cystocele, midline 01/09/2005 06/10/2007 Closed fracture of three ribs 08/24/2004 Rectocele 05/16/2004 06/10/2007 OSTEOARTHROS NOS-L-LEG 05/05/2003 8 OBESITY, UNSPECIFIED 05/04/2003 05/22/2009 Overview: Per Obesity Taxonomy COPD, severity to be determined 01/05/2003 01/19/2013 OBST CHRNIC BRNCH W/ ACUT EXAC 11/25/2002 0 05/26/2007 PATHOLOGICAL FRACTURE OF VERTEBRAE 11/25/2002 11/29/2016 Gastroparesis 08/19/2001 11/29/2016 Erythema multiforme 09/21/2008 Chest pain, non-cardiac 05/26/19 08 Acute duodenal ulcer without mention of hemorrhage, perforation, or obstruction 05/26/2007 Esophageal reflux 09/10/2011 OBESITY, UNSPECIFIED 06/10/2007 DIVERTICULOSIS OF COLON 05/26/19 08 Idiopathic urticaria 11/29/2016 Closed fracture of lateral malleolus 05/26/2007 Overview: FRACTURE CLOSED A->M ANKLE-LATERAL MALLEOLUS Mixed dyslipidemia 02/08/2009 Overview: Per Lipid Taxonomy. Impaired fasting glucose 017 Kidney disease, chronic, stage III (GFR 30-59 ml /min) 09/10/2011 Tubular adenoma of colon 017 documented as of this encounter (statuses as of 12/13/2022) Immunizations Name Administration Dates Next Due Covid-19, [...] drink = 0.6 oz pur e alcohol) Sex Assigned at Date Recorded Female 04/25/2020 10:12 AM EST Job Start Date Occupation Industry Not on file Not on file Not on file documented as of this encounter Plan of Treatment Upcoming Encounters Date Type Specialty Care Team Description 12/19/2022 Office Visit Family Medicine Denise Ley PA-C [address] [place] [address] [place] [address] 12/23/2022 Office Visit Gynecology Urology Shyla Coulter PA-C [address] [place] [address] Nurse Graham Urogyn Gerson [address] [place] [address] 04/07/2023 Imaging Radiology 04/21/2023 Telemedicine Urology Nolberto Osorio MD [address] [place] [address] 7, Telemed Gerson [facility] Ex Rm [address] [place] [address] 05/26/2023 Laboratory Laboratory [address] [place] [address] 05/27/2023 Office Visit Family Medicine LunaDevi masterson[address] [place] [address] 06/02/2023 Office Visit Hematology Oncology Marnie Rivera MD [address] [place] [facility] [place] [address] Pending Results Name Type Priority Associated Diagnoses Date /Time BASIC METABOLIC PANEL Lab Routine Chronic kidney disease, stage 3b (HCC) 12/13/2022 11:40 AM EDT Health Maintenance Due Date Last Done Comments Alpha-1 Antitrypsin 1953 DISCUSS TOBACCO CESSATION (REFER TO SMARTSET #3291) 05/22/2017 05/22/2016 DXA Scan 06/19/2019 06/18/2012, 04/26, 03/13/2005, Additional history exists Depression Screening 04/27/2022 04/27/2021 DTaP,Tdap,and Td Vaccines (2 - Td or Tdap) 10/14/2022 10/14/2012, 09/10/2007, 09/10/2007 COVID-19 Vaccine (2 - 2022-24 season) 2022 02/08/2022 Influenza Vaccine (FLU shot) (#1) 2022 01/21/2022, 10/27/2020, 12/17/2019, Additional history exists CKD PHOS USE SMARTSET 49078 05/04/202304/24, 02/19/2021, 10/14/2019, Additional history exists Albumin/Creatinine Ratio 11/20/2023 023, 12/04/2021, 02/20/2021, Additional history exists CKD HGB USE SMARTSET 54361 12/05/202312/04, 12/04/2022, 11/27/2022, Additional history exists O2 [...] this encounter Medical Devices Implanted Type Area Hairspring Staker Device Identifier Shelf Expiration Date Model / Serial / Lot Mesh Vicryl 6 X 6 Vkm-M - [id number] Implanted:Qty: 1 on 12/01/2006 at OR [facility] N/A: Pelvis DO NOT USE 08/25/2011 VKM-M / / [id number] Lead Tined Quad 3889-28 - [id number] Implanted:Qty: 1 on 06/29/2013 at OR [facility] N/A: Back [employer] : NEUROLOGIC PAIN 04/23/2017 3889-28 / / [id number] Generator Ipg Battery 3058 - [id number] Implanted:Qty: 1 on 07/23/2013 at OR [facility] [employer] : NEUROLOGIC PAIN 11/21/2014 3058 / [id number] / Kit Implant Tined Lead - [id number] Implanted:Qty: 1 on 11/24/2019 by Hugo Minor MD at OR [facility] Back [employer] MOD[employer] 09/24/2021 1801 / / [id number] Description:no charge documented as of this encounter Visit Diagnoses Diagnosis Chronic kidney disease, stage 3b (HCC) documented in this encounter Advance Directives Documents on File Type Date Recorded Patient Surgical Coordinator Expl anation Power of Public Records Officer 06/15/2021 Viki Castrofaboi Dana nder POWER OF STOCK PLAN ADMINISTRATOR Latest Code Status on File Code Status [...] verbally by patient or by statute hierarchy) [email or web address] Viki Santamaria [facility] Care Repr esentative (appointed verbally by patient or by statute hierarchy) [email or web address] [facility] Repr esentative (appointed verbally by patient or by statute hierarchy) Care Teams Heating Plant Superintendent Relationship Specialty Start Date End Date Devi Luna[address] [place] [address] PCP - General Internal Medicine 11/29/16 documented as of this encounter
--- OUTSIDE RECORDS SUMMARY | 2023-01-07 20:04 | External Medical Summary ---
Author Name Unknown Address Unknown Organization [id number]:[facility] [place] [facility] [address] Laboratory Report Ordering Provider Test Date Status PREMA SULLIVAN 12/19/2022 13:20:42 Final Observation Date Value Abnormality Reference (Units ) Status SYNC LEUKOCYTES IN BLOOD BY AUTOMATED COUNT 12/19/2022 13:20:42 11.80 Above high normal 4.00-10.80 (K/uL) Final Segs 12/19/2022 13:20:42 76.9 Above high normal 40.0-75.0 (%) Final Lymphs % 12/19/2022 13:20:42 14.3 Below low normal 18.0-42.0 (%) Final Monos 12/19/2022 13:20:42 7.4 1.0-11.0 (%) Final Eosinophils 12/19/2022 13:20:42 0.8 0.0-6.0 (%) Final Basos 12/19/2022 13:20:42 0.3 0.0-2.0 (%) Final Immature Granulocyte, Percent 12/19/2022 13:20:42 0.3 0.0-2.0 (%) Final Absolute Segs 12/19/2022 13:20:42 9.08 Above high normal 1.80-7.70 (K/uL) Final Lymphs, absolute 12/19/2022 13:20:42 1.69 1.00-4.80 (K/ul) Final Monos, Abs 12/19/2022 13:20:42 0.87 0.00-1.10 (K/uL) Final Eos, Abs 12/19/2022 13:20:42 0.09 0.00-0.70 (K/uL) Final Basos, Abs 12/19/2022 13:20:42 0.03 0.00-0.20 (K/uL) Final Immature Granulocytes, Number 12/19/2022 13:20:42 0.04 0.00-0.20 (K/uL) Final Performing Location [facility] [place] [facility] [address] [facility] [address]
--- OUTSIDE RECORDS SUMMARY | 2023-01-07 20:04 | External Medical Summary ---
Author Name Unknown Address Unknown Organization K01:LAB[facility] [place] [place] - [address] [place] [address] Laboratory Report Ordering Provider Test Date Status PREMA SULLIVAN 12/19/2022 13:20:42 Final Observation Date Value Abnormality Reference (Units ) Status Vitamin B12 12/19/2022 13:20:42 >2000 Above high normal 232-1245 (pg/mL) Final Performing Location LABORATORY [facility] - [address] [place] [address]
--- OUTSIDE RECORDS SUMMARY | 2023-01-07 20:04 | External Medical Summary ---
Author Name Unknown Address Unknown Organization [id number]:LABORATORY [facility] [place] - [address] [facility] [address] Laboratory Report Ordering Provider Test Date Status PREMA SULLIVAN 12/20/2022 09:28:42 Final Observation Date Value Abnormality Reference (Units ) Status Color of Urine by Auto 12/20/2022 09:28:42 Yellow Colorless, Light Yellow, Yellow, Dark Yellow Final Clarity, Urine 12/20/2022 09:28:42 Cloudy Abnormal Clear Final Glucose [Mass/volume] in Urine by Automated test strip 12/20/2022 09:28:42 Negative Negative (mg/dL) Final Bilirubin.total [Presence] in Urine by Automated test strip 12/20/2022 09:28:42 Negative Negative Final Ketones [Mass/volume] in Urine by Automated test strip 12/20/2022 09:28:42 Negative Negative (mg/dL) Final Specific gravity, Urine 12/20/2022 09:28:42 1.023 1.003-1.030 Final Hemoglobin [Presence] in Urine by Automated test strip 12/20/2022 09:28:42 Trace Abnormal Negative Final pH, Urine 12/20/2022 09:28:42 5.5 5.0-7.5 (Units) Final Protein [Mass/volume] in Urine by Automated test strip 12/20/2022 09:28:42 Trace Abnormal Negative (mg/dL) Final Urobilinogen [Mass/volume] in Urine by Automated test strip 12/20/2022 09:28:42 Normal Normal (mg/dL) Final Nitrite [Presence] in Urine by Automated test strip 12/20/2022 09:28:42 Negative Negative Final Leukocyte esterase [Presence] in Urine by Automated test strip 12/20/2022 09:28:42 Large Abnormal Negative Final RBC, Urine 12/20/2022 09:28:42 3-5 Abnormal 0-2 (/HPF) Final WBC, Urine 12/20/2022 09:28:42 50+ Abnormal 0-2 (/HPF) Final Bacteria [#/area] in Urine sediment by Microscopy high power field 12/20/2022 09:28:42 >200 Abnormal 0-25 (/HPF) Final Epithelial cells.squamous [#/area] in Urine sediment by Microscopy high power field 12/20/2022 09:28:42 Many Abnormal None (/HPF) Final Calcium oxalate crystals [#/area] in Urine sediment by Microscopy high power field 12/20/2022 09:28:42 10-19 Abnormal None (/HPF) Final Performing Location LABORATORY [facility] [place] - [address] [facility] [place] [address]
--- OUTSIDE RECORDS SUMMARY | 2023-01-07 20:04 | External Medical Summary | Summary of Care ---
Author Name Unknown Organization [facility] Address [address] [place] [address] Phone [phone] Care Team Providers Care Metal Hanging Helper Name Role Phone Devi Luna DO Primary Care Provider Reason for Visit * Reason Onset Date Comments Medication Refill 12/14/2022 Encounter Details Date Type Department Care Team (Late st Contact Info) Description 12/14/2022 Refill Family Medicine [address] [phone] Devi Luna DO [address] [place] [address] [place] [address] Allergies Active Allergy Reactions Criticality Noted Date Comments Ceftriaxone Sodium hives Cisapride Propulsid--vomiting Cisapride 09/23/2017 Iodinated Contrast Media 09/23/2017 Renografin--itching /feet only Penicillins hives Solifenacin Succinate Other (Please comment) 06/17/2008 Blurred vision at 10 mg dose documented as of this encounter (statuses as of 12/15/2022) Medications Medication Sig Dispensed Refills Start Date [...] 30 Tablet 11 11/05/2022 Active Nystatin-Triamcino lone 076320-8.1 UNIT/GM-% External Cream (Mycolog) Apply topically to [...] as of this encounter (statuses as of 12/15/2022) Active Problems Problem Noted Date Diagnosed Date [...] as of this encounter (statuses as of 12/15/2022) Resolved Problems Problem Noted Date Diagnosed Date [...] as of this encounter (statuses as of 12/15/2022) Immunizations Name Administration Dates Next Due Covid-19, [...] encounter Miscellaneous Notes * Telephone Encounter - Sejal Rose, [facility] - 12/15/2022 8:52 PM EDTRefused Prescriptions: Disp Refills Donepezil HCl 5 MG Oral Tablet (Aricept) 30 Tab*5 Sig: Take 1 Tablet by mouth in the morning. Take with largest meal of the day..Refused By: SEJAL ROSE for Refusal: Too soon documented in this encounter Plan of Treatment Upcoming Encounters Date Type Department Care Team (Late st Contact Info) Description 12/19/2022 1:00 PM EDT Office Visit Family Medicine [address] [place] [phone] Denise Ley PA-C [address] [place] [address] [place] [address] 12/23/2022 10:45 AM EDT Office Visit Urogynecology [facility] [address] [place] [address] Shyla Coulter PA-C [address] [place] [address] Nurse Susanna Stevenson [facility] [address] [place] [address] 04/07/2023 1:00 PM EST Imaging Radiology [facility] [address] [place] [address] 04/21/2023 1:45 PM EST Telemedicine Urology Juan Jon [address] [place] [address] Nolberto Osorio MD [address] [place] [address] 7, Telemed Gerson Stevenson Urology Ex Rm [address] [place] [address] 05/26/2023 11:00 AM EDT Laboratory Laboratory [address] [place] [phone] [place], Lab [address] [place] [address] 05/27/2023 2:30 PM EDT Office Visit Family Medicine [address] [place] [phone] [place] [address] 06/02/2023 1:00 PM EDT Office Visit Hematology/Oncology [facility] [address] [place] [address] Marnie Rivera MD [address] [place] [address] Health Maintenance Due Date Last Done Comments [...] Additional history exists CKD PHOS USE SMARTSET 20821 05/04/202304/24, 02/19/2021, 10/14/2019, Additional history exists Albumin/Creatinine Ratio 11/20/2023 023, 12/04/2021, 02/20/2021, Additional history exists CKD HGB USE SMARTSET 37637 12/05/202312/04, 12/04/2022, 11/27/2022, Additional history exists O2 [...] this encounter Medical Devices Implanted Type Area Weaver Needle Loom Device Identifier Shelf Expiration Date Model / Serial / Lot Mesh Vicryl 6 X 6 Vkm-M - [id number] Implanted:Qty: 1 on 12/01/2006 at OR [facility] N/A: Pelvis DO NOT USE 08/25/2011 VKM-M / / [id number] Lead Tined Quad 3889-28 - [id number] Implanted:Qty: 1 on 06/29/2013 at OR [facility] [place] N/A: Back [employer] : NEUROLOGIC PAIN 04/23/2017 3889-28 / / [id number] Generator Ipg Battery 3058 - [id number] Implanted:Qty: 1 on 07/23/2013 at OR [facility] [employer] : NEUROLOGIC PAIN 11/21/2014 3058 / [id number] / Kit Implant Tined Lead - [id number] Implanted:Qty: 1 on 11/24/2019 by Hugo Minor MD at OR [facility] Back [employer] 09/24/2021 1801 / / [id number] Description:no charge documented as of this encounter Advance Directives Documents on File Type Date Recorded Patient Comber Operator Expl anation Power of Information Security 06/15/2021 Viki [place] nder POWER OF SLUBBER FRAME CHANGER Latest Code Status on File Code Status [...] Relationship Healthcare Agent Relationship Communication Javier Arteaga [facility] R epresentative (appointed verbally by patient or by statute hierarchy) [email or web address] Viki [facility] Care Repr esentative (appointed verbally by patient or by statute hierarchy) [email or web address] [facility] Repr esentative (appointed verbally by patient or by statute hierarchy) Care Teams Metal Hanging Helper Relationship Specialty Start Date End Date Devi Luna DO [address] [place] [address] [place] [address] PCP - General Internal Medicine 11/29/16 documented as of this encounter
--- OUTSIDE RECORDS SUMMARY | 2023-01-07 20:04 | External Medical Summary | Summary of Care ---
Author Name Unknown Organization [facility] Address [address] [place] [address] Phone [phone] Care Team Providers Care Buhr Dresser Name Role Phone Devi Luna DO Primary Care Provider [phone] Reason for Visit * Reason Comments Outpatient Testing Encounter Details Date Type Department Care Team (Late st Contact Info) Description 12/19/2022 1:40 PM EDT Laboratory Laboratory [address] [place] [phone] [place] [address] Generalized weakness Allergies Active Allergy Reactions Criticality Noted Date Comments Ceftriaxone Sodium hives Cisapride Propulsid--vomiting Cisapride 09/23/2017 Iodinated Contrast Media 09/23/2017 Renografin--itching /feet only Penicillins hives Solifenacin Succinate Other (Please comment) 06/17/2008 Blurred vision at 10 mg dose documented as of this encounter (statuses as of 12/19/2022) Medications Medication Sig Dispensed Refills Start Date [...] 30 Tablet 11 11/05/2022 Active Nystatin-Triamcino lone 451807-2.1 UNIT/GM-% External Cream (Mycolog) Apply topically to [...] as of this encounter (statuses as of 12/19/2022) Active Problems Problem Noted Date Diagnosed Date [...] as of this encounter (statuses as of 12/19/2022) Resolved Problems Problem Noted Date Diagnosed Date [...] as of this encounter (statuses as of 12/19/2022) Immunizations Name Administration Dates Next Due Covid-19, [...] 12/23/2022 10:45 AM EDT Office Visit Urogynecology [facility] [address] [place] [address] Shyla Coulter PA-C [address] [place] [address] Nurse Susanna Stevenson Gerson [address] [place] [address] 02/25/2023 4:00 PM EST Office [address] [phone] Denise Ley PA-C [address] [place] [address] [place] [address] 04/07/2023 1:00 PM EST Imaging Radiology [facility] 1st Floor, [place] [address] [place] [address] 04/21/2023 1:45 PM EST Telemedicine Urology Juan Jon [address] [place] [address] Nolberto Osorio MD [address] [place] [address] 7, Telemed [facility] Urology Ex [address] [place] [address] 05/26/2023 11:00 AM EDT Laboratory Laboratory [address] [place] [phone] Drew, [address] [place] [address] 05/27/2023 2:30 PM EDT Office Visit [address] [place] [phone] Devi Luna [address] [place] [address] 06/02/2023 1:00 PM EDT Office Visit Hematology/Oncology Patricia Wan [place] [address] [facility] [place] [address] Marnie Rivera MD [address] [facility] [place] [address] Pending Results Name Type Priority Associated Diagnoses Date /Time CBC WITH WBC DIFFERENTIAL AND ANEMIA REFLEX WORKUP Lab Routine Generalized weakness 12/19/2022 1:20 PM EDT ANEMIA CBC Lab Routine Generalized weakness 12/19/2022 1:20 PM EDT DIFFERENTIAL, AUTOMATED Lab Routine Generalized weakness 12/19/2022 1:20 PM EDT ANEMIA REFLEX CHEMISTRY HOLD Lab Routine Generalized weakness 12/19/2022 1:20 PM EDT Health Maintenance Due Date Last Done Comments Alpha-1 Antitrypsin 1953 DISCUSS TOBACCO CESSATION (REFER TO SMARTSET #3291) 05/22/2017 05/22/2016 DXA Scan 06/19/2019 06/18/2012, 04/26, 03/13/2005, Additional history exists Depression Screening 04/27/2022 04/27/2021 DTaP,Tdap,and Td Vaccines (2 - Td or Tdap) 10/14/2022 10/14/2012, 09/10/2007, 09/10/2007 COVID-19 Vaccine (2 - 2022- season) 2022 02/08/2022 CKD PHOS USE SMARTSET 14879 05/04/202304/24, 02/19/2021, 10/14/2019, Additional history exists Albumin/Creatinine Ratio 11/20/2023 023, 12/04/2021, 02/20/2021, Additional history exists CKD HGB USE SMARTSET 25912 12/05/202312/04, 12/04/2022, 11/27/2022, Additional history exists O2 [...] this encounter Medical Devices Implanted Type Area Technician Submarine Cable Equipment Device Identifier Shelf Expiration Date Model / Serial / Lot Mesh Vicryl 6 X 6 Vkm-M - [id number] Implanted:Qty: 1 on 12/01/2006 [place] [facility] [place]A: Pelvis DO NOT USE 08/25/2011 VKM-M / / [id number] Lead Tined Quad 3889-28 - [id number] Implanted:Qty: 1 on 06/29/2013 [place] [facility]/A: Back [employer] : NEUROLOGIC PAIN 04/23/2017 3889-28 / / [id number] Generator Ipg Battery 3058 - [id number] Implanted:Qty: 1 on 07/23/2013 [place] [facility] [place] [employer] : NEUROLOGIC PAIN 11/21/2014 3058 / [id number] / Kit Implant Tined Lead - [id number] Implanted:Qty: 1 on 11/24/2019 by Hugo Minor MD at OR [facility] Back [employer] MODULATION [employer]CHN[employer]IE 09/24/2021 1801 / / [id number] Description:no charge documented as of this encounter Visit Diagnoses Diagnosis Generalized weakness Other malaise and fatigue documented in this encounter Advance Directives Documents on File Type Date Recorded Patient Sliver Chopper Expl anation Power of Permaculture Designer 06/15/2021 Viki oviedo POWER OF SITE INTERPRETER Latest Code Status on File Code Status [...] Relationship Healthcare Agent Relationship Communication Javier Arteaga [facility] R epresentative (appointed verbally by patient or by statute hierarchy) [email or web address] Vikideven Santamaria [facility] Care Repr esentative (appointed verbally by patient or by statute hierarchy) [email or web address] [facility] Repr esentative (appointed verbally by patient or by statute hierarchy) Care Teams Buhr Dresser Relationship Specialty Start Date End Date Devi Luna DO [address] [place] [address] [place] [address] PCP - General Internal Medicine 11/29/16 documented as of this encounter
--- OUTSIDE RECORDS SUMMARY | 2023-01-07 20:04 | External Medical Summary ---
Author Name Unknown Address Unknown Organization [id number]:[place]ATORY [facility] [place] [address] [facility] [address] Laboratory Report Ordering Provider Test Date Status PREMA SULLIVAN 12/19/2022 13:20:42 Final Observation Date Value Abnormality Reference (Units ) Status WBC, Total 12/19/2022 13:20:42 11.80 Above high normal 4 .00-10.80 (K/uL) Final RBC 12/19/2022 13:20:42 3.67 3.85-5.15 (M/uL) Final Hemoglobin 12/19/2022 13:20:42 11.1 Below low normal 12 .0-15.3 (g/dL) Final Anemia reflex testing trigge rs on a HGB < 12.0 for Females and HGB < 13.0 for Males in accordance with the WHO Anemia Guidelines
Anemia reflex testing triggers on a HGB < 12.0 for Females and HGB < 13.0 for Males in accordance with the WHO Anemia Guidelines HCT 12/19/2022 13:20:42 38.5 36.0-45.2 (%) Final MCV 12/19/2022 13:20:42 104.9 81.5-97.5 (fL) Final MCH 12/19/2022 13:20:42 30.2 27.0-34.0 (pg) Final MCHC 12/19/2022 13:20:42 28.8 32.0-36.0 (g/dL) Final RDW 12/19/2022 13:20:42 18.2 11.5-15.5 (%) Final Platelets 12/19/2022 13:20:42 196 140-400 (K /uL) Final MPV 12/19/2022 13:20:42 11.5 6.6-11.1 ( fL) Final Nucleated erythrocytes/100 leukocytes [Ratio] in Blood by Automated count 12/19/2022 13:20:42 0 <=0 (/100 WBCs) Fi nal Performing Location LABORATORY [facility] [place] - [address] [facility] [address]
--- OUTSIDE RECORDS SUMMARY | 2023-01-07 20:04 | External Medical Summary ---
Author Name Unknown Address Unknown Organization [id number]:[place] [facility] [place] [address] [facility] [address] [facility] [address] Laboratory Report Ordering Provider Test Date Status LAURIE,KORICHIE 12/19/2022 13:20:42 Final Observation Date Value Abnormality Reference (Units ) Status Ferritin 12/19/2022 13:20:42 32 13-150 (ng /mL) Final Postmenopausal women have hi gher ferritin levels than pre-menopausal women. The above reference interval is based on pre-menopausal women. Performing Location LABORATORY C - [address] [facility] [address]
--- OUTSIDE RECORDS SUMMARY | 2023-01-07 20:04 | External Medical Summary | Summary of Care ---
Author Name Unknown Organization [facility] Address [address] [place] [address] Phone [phone] Care Team Providers Care Crew Leader Name Role Phone Devi Luna DO Primary Care Provider [phone] Reason for Visit * Reason Onset Date Comments Medication Administration 12/19/2022 Flu an d/or Pneumo Inj Follow Up Encounter Details Date Type Department Care Team (Late st Contact Info) Description 12/19/2022 1:00 PM EDT Office Visit Family Medicine [address] [place] [phone] Denise Ley, HADLEYC [address] [place] [address] [place] [id number] Generalized weakness*; Need for prophylactic vaccination and inoculation against influenza; Bacteremia; Dysuria Allergies Active Allergy Reactions Criticality Noted Date [...] 30 Tablet 11 11/05/2022 Active Nystatin-Triamcino lone 478492-1.1 UNIT/GM-% External Cream (Mycolog) Apply topically to [...] moderate 05/27/2022 Nonrheumatic aortic valve insufficiency 05/28/19 23 Mild pulmonary hypertension 05/27/2022 Moderate late onset [...] Sign Reading Time Taken Comments Blood Pressure 120/60 12/19/2022 12:59 PM EDT Pulse 78 12/19/2022 12:59 PM EDT Temperature 37.3 C (99.1 F) 12/19/2022 12:59 PM E DT Respiratory Rate - - Oxygen Saturation 97% 12/19/2022 12:59 PM EDT Inhaled Oxygen Concentration - - Weight 71.7 kg (158 lb) 12/19/2022 12:59 PM EDT Height - - Body Mass Index 24.02 10/14/2022 11:20 AM EDT documented in this encounter Progress Notes * Denise Ley PA-C - 12/19/2022 1:01 PM EDT Nursing Notes: Sherif Solorzano LPN 12/19/22 1306 Signed Chief Complaint Patient presents with Medication Administration Flu and/or Pneumo Inj Follow Up 3 wk f/u Still has burning when Urinating Can not give urine sample today. Supplies given to patient to bring a urine sample in to Lab Temp today 99.1 The patient has been properly identified by confirmation of name and date of . Pt here today for FU. Pt states that she is having some burning with urination. Last urine culture was a month ago and normal. Temp is 99.1 today. Not able to give a sample. Will send her home with acup and hat to bring sample back. Looking back through notes, it looks like she had been on bactrim for possible bacteremia. White count was elevated at 15. Recent blood cultures negative. White count improved dramatically while on bactrim but this was switched because her kidney function declined. She was started on doxycycline. She has one more day of this. Pt states that she is feeling well. Pt denies fever, chills, nausea, vomiting, URI sx. Review of patient's allergies indicates: Allergen Reactions Ceftriaxone Sodium hives Cisapride Propulsid--vomiting Cisapride Iodinated Contrast Media Renografin--itching/feet only Penicillins hives Vesicare [Solifenacin Succinate] Other (Please comment) Blurred vision at 10 mg dose Current Outpatient Medications Medication Sig Dispense Refill Donepezil HCl 5 MG Oral Tablet (Aricept) Take 1 Tablet by mouth in the morning. Take with largest meal of the day.. 30 Tablet 5 VITAMIN D 1000 UNIT PO CAPS 1 capsule daily 1 Cap 0 B-12 1000 MCG PO CAPS one pill each day 1 Cap 0 Multiple Vitamins-Minerals (HAIR SKIN AND NAILS FORMULA) TABS Take by mouth. Loratadine 10 MG Oral Capsule Take 1 Capsule by mouth in the morning. Ferrous Sulfate 325 (65 Fe) MG Oral Tablet (Feosol) Take 1 Tablet by mouth. 1 tab every other day lamoTRIgine 25 MG Oral Tablet (LaMICtal) Take 1 Tablet by mouth in the morning. 90 Tablet 1 Sertraline HCl 50 MG Oral Tablet (Zoloft) Take 1.5 Tablets by mouth in the morning. 135 Tablet 1 traMADol HCl 50 MG Oral Tablet (Ultram) Take 1 Tablet by mouth every 8 hours as needed for Pain, Severe. 30 Tablet 0 risperiDONE 0.5 MG Oral Tablet (RisperDAL) Take 1 Tablet by mouth in the morning and 1 Tablet before bedtime. 60 Tablet 5 Folic Acid 1 MG Oral Tablet Take 1 Tablet by mouth in the morning. 90 Tablet 3 Myrbetriq 50 MG Oral Tablet Extended Release 24 Hour (Mirabegron ER) Take 1 Tablet by mouth in the morning. 30 Tablet 11 Nystatin-Triamcinolone 366382-7.1 UNIT/GM-% External Cream (Mycolog) Apply topically to affected area 3 times a day. Apply to vagina 30 g 0 Doxycycline Hyclate 100 MG Oral Capsule Take 1 Capsule by mouth in the morning and 1 Capsule beforebedtime. Do all this for 14 days. Until gone.. 28 Capsule 0 No current facility-administered medications for this visit. Past Medical History: Diagnosis Date Acute duodenal ulcer without mention of hemorrhage, perforation, or obstruction H. Pylori neg 1997 Allergic rhinitis 10/14/2012 Aspirin intolerance B12 deficiency 03/02/2014 Carpal tunnel syndrome 11/18/2005 right hand Carpal tunnel syndrome 10/11/2009 mild- moderate left hand Chest pain, non-cardiac 1987 1993 [place] [facility] [place] Closed fracture of lateral malleolus 04/20/2005 FRACTURE CLOSED A->M ANKLE-LATERAL MALLEOLUS Closed fracture of three ribs 08/21/2004 left 9,10, and 11 COPD exacerbation (HCC) 11/25/2002 Cough 12/30/2017 Cystitis 11/06/2022 >100,000 gardnerella vaginalis Cystocele, midline 01/09/2005 Depression with anxiety 10/26/2014 Depressive disorder, not elsewhere classified 06/21/2010 Diverticulosis of colon Erythema multiforme Erythema multiforme ? due to Rocephin Esophageal reflux Essential hypertension with goal blood pressure less than 140/90 11/20/2015 FH: breast cancer in first degree relative 05/22/2016 Generalized osteoarthritis GERD (gastroesophageal reflux disease) 09/10/2011 HTN, goal below 130/80 03/24/2009 HTN, goal below 140/90 05/09/2014 Hypertension goal BP (blood pressure) < 140/80 01/24/2014 Idiopathic urticaria chronic Impaired fasting glucose 05/2006 Kidney disease, chronic, stage III (GFR 30-59 ml/min) (HCC) Mixed dyslipidemia Obesity, BMI not known Osteoarthrosis, unspecified whether generalized or localized, lower leg 05/05/2003 Periodic limb movement disorder 05/21/2011 Peripheral vascular disease (HCC) Prolapse of vaginal portillo without mention of uterine prolapse Rectocele 05/16/2004 Tobacco use disorder 06/12/2012 Tubular adenoma of colon Vitamin D deficiency 09/25/2009 Social History Socioeconomic History Marital status: Spouse name: Not on file Number of children: Not on file Years of education: Not on file Highest education level: Not on file Occupational History 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 Employer: [employer] [address] Tobacco Use Smoking status: Every Day Packs/day: 0.50 Years: 45.00 Additional pack years: 0.00 Total pack years: 22.50 Types: Cigarettes Smokeless tobacco: Never Tobacco comments: using nicotine patch about 1 month Substance and Sexual Activity Alcohol use: No Drug use: No Sexual activity: Not Currently Partners: Male Other Topics Concern Not on file Social History Narrative Not on file Social Determinants of Health Financial Resource Strain: Not on file Food Insecurity: Not on file Transportation Needs: Not on file Physical Activity: Not on file Stress: Not on file Social Connections: Not on file Intimate Partner Violence: Not on file Housing Stability: Not on file O:Blood pressure 120/60, pulse 78, temperature 37.3 C (99.1 F), temperature source Tympanic, weight 71.7 kg (158 lb), SpO2 97%. GENERAL: alert, healthy, and no distress NECK: supple, no adenopathy, no bruits, thyroid normal size, non-tender, without nodularity EYES: conjunctiva are pink and non-injected, sclera clear HEART: regular rate & rhythm, no murmur, and no gallops LUNGS: chest symmetric with normal AP diameter, no chest deformities noted, no chest wall tenderness, lungs clear to auscultation EXTREMITIES: no edema A:Generalized weakness (Primary) - CBC WITH WBC DIFFERENTIAL AND ANEMIA REFLEX WORKUP; Future; Expected date: 12/19/2022 Need for prophylactic vaccination and inoculation against influenza - INFLUENZA VACC, QUAD, HIGH DOSE (FLUZONE HD) Bacteremia Dysuria - URINALYSIS, REFLEX TO MICROSCOPIC; Future; Expected date: 12/26/2022 - CULTURE, URINE, QUANTITATIVE Will check cbc. Finish doxycycline. Pt has no new questions or concerns at this time. Bring urine in. Any questions/problems, please call. If anything changes, worsens, develops new sx, please call [facility]. Return in 2 months for recheck with PCP. Follow Up: Return if symptoms worsen or fail to improve. Denise Ley PA-C documented in this encounter Nursing Notes * Sherif Solorzano LPN - 12/19/2022 1:00 PM EDT Chief Complaint Patient presents with Medication Administration Flu and/or Pneumo Inj Follow Up 3 wk f/u Still has burning when Urinating Can not give urine sample today. Supplies given to patient to bring a urine sample in to Lab Temp today 99.1 The patient has been properly identified by confirmation of name and date of . documented in this encounter Plan of Treatment Upcoming Encounters Date Type Department Care Team (Late st Contact Info) Description 12/19/2022 1:40 PM EDT Laboratory Laboratory [address] [place] [phone] [place] [address] Generalized weakness 12/23/2022 10:45 AM EDT Office Visit Urogynecology [facility] [address] [place] [address] Shyla Coulter PA-C [address] [place] [address] Nurse Graham Uroarti Gerson [address] [place] [address] 02/25/2023 4:00 PM EST Office Visit [address] [place] [phone] Denise Ley PA-C [address] [place] [address] [place] [address] 04/07/2023 1:00 PM EST Imaging Radiology [facility] 1st Floor, [place] [address] [place] [address] 04/21/2023 1:45 PM EST Telemedicine Urology Juan Jon [address] [place] [address] Nolberto Osorio MD [address] [place] [address] 7, Telemed [facility] Ex [address] [place] [address] 05/26/2023 11:00 AM EDT Laboratory Laboratory [address] [place] [phone] [place], Lab [address] [place] [address] 05/27/2023 2:30 PM EDT Office Visit [address] [place] [phone] Luna, Devi Nichols[address] [place] [address] 06/02/2023 1:00 PM EDT Office Visit Hematology/Oncology Patricia Wan [place] [address] [place] [address] Marnie Rivera MD [address] [place] [address] Pending Results Name Type Priority Associated Diagnoses Date /Time CBC WITH WBC DIFFERENTIAL AND ANEMIA REFLEX WORKUP Lab Routine Generalized weakness 12/19/2022 1:20 PM EDT Scheduled Orders Name Type Priority Associated Diagnoses Orde r Schedule CBC WITH WBC DIFFERENTIAL AND ANEMIA REFLEX WORKUP Lab Routine Generalized weakness Expected: 12/19/2022 (Approximate), Expires: 12/20/2023 URINALYSIS, REFLEX TO MICROSCOPIC Lab Routine Dysuria Expected: 12/26/2022, Expires: 12/20/2023 CULTURE, URINE, QUANTITATIVE Lab Routine Dysuria Ordered: 12/19/2022 Health Maintenance Due Date Last Done Comments Alpha-1 Antitrypsin 1953 DISCUSS TOBACCO CESSATION (REFER TO SMARTSET #3291) 05/22/2017 05/22/2016 DXA Scan 06/19/2019 06/18/2012, 04/26, 03/13/2005, Additional history exists Depression Screening 04/27/2022 04/27/2021 DTaP,Tdap,and Td Vaccines (2 - Td or Tdap) 10/14/2022 10/14/2012, 09/10/2007, 09/10/2007 COVID-19 Vaccine (2 - 2022- season) 2022 02/08/2022 CKD PHOS USE SMARTSET 61974 05/04/2023 03/, 02/19/2021, 10/14/2019, Additional history exists Albumin/Creatinine Ratio 11/20/2023 023, 12/04/2021, 02/20/2021, Additional history exists CKD HGB USE SMARTSET 07302 12/05/202312/04, 12/04/2022, 11/27/2022, Additional history exists O2 [...] this encounter Medical Devices Implanted Type Area Leather Production Artisan Device Identifier Shelf Expiration Date Model / Serial / Lot Mesh Vicryl 6 X 6 Vkm-M - [id number] Implanted:Qty: 1 on 12/01/2006 [place] [facility] [place]A: Pelvis DO NOT USE 08/25/2011 VKM-M / / [id number] Lead Tined Quad 3889-28 - [id number] Implanted:Qty: 1 on 06/29/2013 [place] [facility] [place]/A: Back [employer] : NEUROLOGIC PAIN 04/23/2017 3889-28 / / [id number] Generator Ipg Battery 3058 - [id number] Implanted:Qty: 1 on 07/23/2013 [place] [facility] [place] [employer] : NEUROLOGIC PAIN 11/21/2014 3058 / [id number] / Kit Implant Tined Lead - [id number] Implanted:Qty: 1 on 11/24/2019 by Hugo Minor MD at OR [facility] Back [employer] MODUL[employer] 09/24/2021 1801 / / [id number] Description:no charge documented as of this encounter Visit Diagnoses Diagnosis Generalized weakness- Primary Other malaise and fatigue Need for prophylactic vaccination and inoculation against influenza Bacteremia Dysuria Generalized weakness Other malaise and fatigue documented in this encounter Advance Directives Documents on File Type Date Recorded 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 Power of Biofuels Plant Manager 06/15/2021 Viki [place] nder POWER OF AMMUNITION COMPONENTS INSPECTOR Latest Code Status on File Code [...] Healthcare Agent Relationship Communication Javier Arteaga [facility] R epresentative (appointed verbally by patient or by statute hierarchy) [email or web address] Viki [facility] Repr esentative (appointed verbally by patient or by statute hierarchy) [email or web address] Claude [facility] Repr esentative (appointed verbally by patient or by statute hierarchy) Care Teams Crew Leader Relationship Specialty Start Date End Date Devi Luna DO [address] [place] [address] [place] [address] PCP - General Internal Medicine 11/29/16 documented as of this encounter
--- OUTSIDE RECORDS SUMMARY | 2023-01-07 20:04 | External Medical Summary ---
Author Name Unknown Address Unknown Organization K01:LABORATORY [facility] [place] - [address] [place] [address] Laboratory Report Ordering Provider Test Date Status PREMA SULLIVAN 12/19/2022 13:20:42 Final Observation Date Value Abnormality Reference (Units ) Status TSH 12/19/2022 13:20:42 1.51 0.27-4.20 (uIU/mL) Final Performing Location LABORATORY C - [address] [place] [address]
--- OUTSIDE RECORDS SUMMARY | 2023-01-07 20:04 | External Medical Summary ---
Author Name Unknown Address Unknown Organization K01:[place] [facility] [place] [address] [address] Laboratory Report Ordering Provider Test Date Status LAURIEPREMA 12/19/2022 13:20:42 Final Observation Date Value Abnormality Reference (Units ) Status Iron 12/19/2022 13:20:42 26 Below low normal 33-151 (ug/dL) Final Iron-binding capacity 12/19/2022 13:20:42 291 250-425 (ug/dL) Final Transferrin Sat % 12/19/2022 13:20:42 9 Below low normal 15-55 (%) Final Performing Location [place] [facility] [place] [address] [address]
--- OUTSIDE RECORDS SUMMARY | 2023-01-07 20:04 | External Medical Summary ---
Author Name Unknown Address Unknown Organization K01:[place] [facility] [place] [address] [address] Laboratory Report Ordering Provider Test Date Status PREMA SULLIVAN 12/19/2022 13:20:42 Final Observation Date Value Abnormality Reference (Units ) Status Folic Acid 12/19/2022 13:20:42 >20.0 >4.5 (ng/ mL) Final Performing Location [place] [facility] [place] [address] [place] [address]
--- OUTSIDE RECORDS SUMMARY | 2023-01-07 20:04 | External Medical Summary ---
Author Name Unknown Address Unknown Organization K01:[facility] [place] [facility] [address] [place] [address] Laboratory Report Ordering Provider Test Date Status BRITTANY ROJAS 12/13/2022 11:40:18 Final Observation Date Value Abnormality Reference (Units ) Status BUN 12/13/2022 11:40:18 28 Above high normal 6-20 (mg/dL) Final Creatinine 12/13/2022 11:40:18 1.0 0.5-1.0 (mg/dL) Final Glomerular filtration rate/1.73 sq M.predicted [Volume Rate/Area] in Serum, Plasma or Blood by Creatinine-based formula (CKD-EPI) 12/13/2022 11:40:18 54 Below low normal >=60 (mL/min) Final eGFR is calculated based on the CKD-EPI 2020 equation SODIUM 12/13/2022 11:40:18 144 135-146 (m mol/L) Final Potassium 12/13/2022 11:40:18 3.5 3.5-5.1 (m mol/L) Final Cl 12/13/2022 11:40:18 108 Above high normal 98 -107 (mmol/L) Final CO2 12/13/2022 11:40:18 23 22-32 (mmo l/L) Final Anion gap 12/13/2022 11:40:18 13 7-15 (mmol /L) Final Glucose 12/13/2022 11:40:18 119 70-120 (mg /dL) Final Calcium 12/13/2022 11:40:18 10.4 Above high normal 8. 4-10.2 (mg/dL) Final Performing Location [facility] [place] [address] [place] [address]
--- OUTSIDE RECORDS SUMMARY | 2023-01-07 20:04 | External Medical Summary | Summary of Care ---
Author Name Unknown Organization [facility] Address [address] [place] [address] Phone [phone] Care Team Providers Care Bingo Caller Name Role Phone Devi Luna DO Primary Care Provider [phone] Reason for Visit * Reason Comments Outpatient Testing Encounter Details Date Type Department Care Team (Late st Contact Info) Description 12/20/2022 9:30 AM EDT Laboratory Laboratory [address] [place] [phone] Dr Specimen Drop Off [address] [place] [address] Dysuria Allergies Active Allergy Reactions Criticality Noted Date Comments Ceftriaxone Sodium hives Cisapride Propulsid--vomiting Cisapride 09/23/2017 Iodinated Contrast Media 09/23/2017 Renografin--itching /feet only Penicillins hives Solifenacin Succinate Other (Please comment) 06/17/2008 Blurred vision at 10 mg dose documented as of this encounter (statuses as of 12/20/2022) Medications Medication Sig Dispensed Refills Start Date [...] 30 Tablet 11 11/05/2022 Active Nystatin-Triamcinol one 728125-3.1 UNIT/GM-% External Cream (Mycolog) Apply topically to affected area 3 times a day. Apply to vagina 30 g 0 11/15/2022 Active documented as of this encounter (statuses as of 12/20/2022) Active Problems Problem Noted Date Diagnosed Date Mitral valve stenosis, moderate 05/27/2022 Nonrheumatic aortic valve insufficiency 04/03/20 23 Mild pulmonary hypertension 05/27/2022 Moderate late [...] as of this encounter (statuses as of 12/20/2022) Resolved Problems Problem Noted Date Diagnosed Date [...] as of this encounter (statuses as of 12/20/2022) Immunizations Name Administration Dates Next Due Covid-19, [...] Urogynecology Brenda Stevenson [address] [place] [address] Shyla Coulter PA-C [address] [place] [address] Nurse Susanna Stevenson Gerson [address] [place] [address] 02/25/2023 4:00 PM EST Office Visit Family [address] [place] [phone] Denise Ley PA-C [address] [place] [address] [place] [address] 04/07/2023 1:00 PM EST Imaging Radiology [facility] [address] [place] [address] 04/21/2023 1:45 PM EST Telemedicine Urology Juan Jon [address] [place] [address] Nolberto Osorio MD [address] [place] [address] 7, Telemed Gerson Stevenson Urology Ex Rm [address] [place] [address] 05/26/2023 11:00 AM EDT Laboratory Laboratory [address] [place] [phone] [place], [address] [place] [address] 05/27/2023 2:30 PM EDT Office Visit Family [address] [place] [phone] Devi Luna DO [address] [place] [address] [place] [address] 06/02/2023 1:00 PM EDT Office Visit Hematology/Oncology [facility] [place] [address] Marnie Rivera MD [address] [place] [address] Pending Results Name Type Priority Associated Diagnoses Date /Time URINALYSIS, REFLEX TO MICROSCOPIC Lab Routine Dysuria 12/20/2022 9:28 AM EDT Health Maintenance Due Date Last Done Comments Alpha-1 Antitrypsin 1953 DISCUSS TOBACCO CESSATION (REFER TO SMARTSET #3291) 05/22/2017 05/22/2016 DXA Scan 06/19/2019 06/18/2012, 04/26, 03/13/2005, Additional history exists Depression Screening 04/27/2022 04/27/2021 DTaP,Tdap,and Td Vaccines (2 - Td or Tdap) 10/14/2022 10/14/2012, 09/10/2007, 09/10/2007 COVID-19 Vaccine ( - season) 2022 02/08/2022 CKD PHOS USE SMARTSET 22162 05/04/202304/24, 02/19/2021, 10/14/2019, Additional history exists Albumin/Creatinine Ratio 11/20/2023 023, 12/04/2021, 02/20/2021, Additional history exists CKD HGB USE SMARTSET 07823 12/20/202312/19, 12/19/2022, 12/04/2022, Additional history exists O2 [...] this encounter Medical Devices Implanted Type Area Rod Buster Helper Device Identifier Shelf Expiration Date Model / Serial / Lot Mesh Vicryl 6 X 6 [facility]-M - [id number] Implanted:Qty: 1 on 12/01/2006 at OR [place] N/A: Pelvis DO NOT USE 08/25/2011 VKM-M / / [id number] Lead Tined Quad 3889-28 - [id number] Implanted:Qty: 1 on 06/29/2013 at OR [place] N/A: Back [employer] : NEUROLOGIC PAIN 04/23/2017 3889-28 / / [id number] Generator Ipg Battery 3058 - [id number] Implanted:Qty: 1 on 07/23/2013 at OR [place] [employer] : NEUROLOGIC PAIN 11/21/2014 3058 / [id number] / Kit Implant Tined Lead - [id number] Implanted:Qty: 1 on 11/24/2019 by Hugo Minor MD at OR [facility] Back [employer] 09/24/2021 1801 / / [id number] Description:no charge documented as of this encounter Visit Diagnoses Diagnosis Dysuria documented in this encounter Advance Directives Documents on File Type Date Recorded Patient Board Attendant Expl anation Power of Rubber Goods Tester 06/15/2021 Viki [place] nder POWER OF CHAIN MENDER Latest Code Status on File Code Status [...] Relationship Healthcare Agent Relationship Communication Javier Rose [facility] Health Care R epresentative (appointed verbally by patient or by statute hierarchy) [email or web address] Viki Santamaria Adult Child Health Care Repr esentative (appointed verbally by patient or by statute hierarchy) [email or web address] Claude Rose Adult Child Health Care Repr esentative (appointed verbally by patient or by statute hierarchy) Care Teams Bingo Caller Relationship Specialty Start Date End Date Devi Luna DO [address] [place] [address] [place] [address] PCP - General Internal Medicine 11/29/16 documented as of this encounter
--- OUTSIDE RECORDS SUMMARY | 2023-01-07 20:04 | External Medical Summary | Summary of Care ---
Author Name Unknown Organization [facility] Address [address] [place] [address] Phone [phone] Care Team Providers Care Appetizer Packer Name Role Phone Devi Luna DO Primary Care Provider Reason for Visit * Reason Onset Date Comments case management 12/17/2022 Encounter Details Date Type Department Care Team (Late st Contact Info) Description 12/17/2022 Hedge Fund Accountant Telephone Care Coordination [address] [place], [place] [phone] Shelli Garsia, ASIF [address] [place], [place] [phone] case management Allergies Active Allergy Reactions Criticality Noted Date Comments Ceftriaxone Sodium hives Cisapride Propulsid--vomiting Cisapride 09/23/2017 Iodinated Contrast Media 09/23/2017 Renografin--itching /feet only Penicillins hives Solifenacin Succinate Other (Please comment) 06/17/2008 Blurred vision at 10 mg dose documented as of this encounter (statuses as of 12/18/2022) Medications Medication Sig Dispensed Refills Start Date [...] 30 Tablet 11 11/05/2022 Active Nystatin-Triamcino lone 446055-1.1 UNIT/GM-% External Cream (Mycolog) Apply topically to [...] as of this encounter (statuses as of 12/18/2022) Active Problems Problem Noted Date Diagnosed Date [...] as of this encounter (statuses as of 12/18/2022) Resolved Problems Problem Noted Date Diagnosed Date [...] as of this encounter (statuses as of 12/18/2022) Immunizations Name Administration Dates Next Due Covid-19, [...] Encounter - Shelli Garsia RN - 12/17/2022 2:13 PM EDT Miguel Walker: Patient is scheduled to see you on 12/19. The daughter and spouse are wondering if patient is to be taking the triamterne, state that pharmacy has been filling it. Per chart review it lookslike it was on hold for LAUREANO. Can you please let them know at the appointment, to keep holding or restart? Thank you! Shelli Garsia CM documented in this encounter Plan of Treatment Upcoming Encounters Date Type Department Care Team (Late st Contact Info) Description 12/19/2022 1:00 PM EDT Office Visit Family Medicine [address] [place] [phone] Denise Ley PA-C [address] [place] [address] [place] [address] 12/23/2022 10:45 AM EDT Office Visit Urogynecology [facility] [address] [place] [address] Shyla Coulter PA-C [address] [place] [address] Nurse Susanna Stevenson [address] [place] [address] 04/07/2023 1:00 PM EST Imaging Radiology [facility] 1st Floor, [place] [address] [place] [address] 04/21/2023 1:45 PM EST Telemedicine Urology Juan Jon [address] [place] [address] Nolberto Osorio MD [address] [place] [address] 7, Telemed Gerson Graham Urology Ex Rm [address] [place] [address] 05/26/2023 11:00 AM EDT Laboratory Laboratory [address] [place] [phone] [place], [address] [place] [address] 05/27/2023 2:30 PM EDT Office Visit Family Medicine [address] [place] [phone] [place] [address] 06/02/2023 1:00 PM EDT Office Visit Hematology/Oncology [facility] [place] [address] [place] [address] Marnie Rivera MD [address] [place] [address] Health Maintenance Due Date Last Done Comments [...] Additional history exists CKD PHOS USE SMARTSET 14304 05/04/202304/24, 02/19/2021, 10/14/2019, Additional history exists Albumin/Creatinine Ratio 11/20/2023 023, 12/04/2021, 02/20/2021, Additional history exists CKD HGB USE SMARTSET 10143 12/05/202312/04, 12/04/2022, 11/27/2022, Additional history exists O2 [...] this encounter Medical Devices Implanted Type Area Volunteer Specialist Device Identifier Shelf Expiration Date Model / Serial / Lot Mesh Vicryl 6 X 6 Vkm-M - [id number] Im[place]ed:Q[place]: 1 [place] 12[place] [facility] [place]: Pelvis DO NOT USE 08/25/2011 VKM-M / / [id number] Lead Tined Quad 3889-28 - [id number] Implanted:Qty: 1 on 06/29/2013 [place] [facility] [place]: Back [employer] : NEUROLOGIC PAIN 04/23/2017 3889-28 / / [id number] Generator Ipg Battery 3058 - [id number] Implanted:Qty: 1 on 07/23/2013 [place] [facility] [place] [employer] : NEUROLOGIC PAIN 11/21/2014 3058 / [id number] / Kit Implant Tined Lead - [id number] Implanted:Qty: 1 on 11/24/2019 by Hugo Minor MD at OR [facility] Back [employer] 09/24/2021 1801 / / [id number] Description:no charge documented as of this encounter Advance Directives Documents on File Type Date Recorded Patient Behavioral Health Specialist Expl anation Power of Storeroom Attendant 06/15/2021 Vkii [place] nder POWER OF BUILDING MANAGER Latest Code Status on File Code Status [...] Healthcare Agent Relationship Communication Javier Arteaga [facility] R epresentative (appointed verbally by patient or by statute hierarchy) [email or web address] Viki Santamaria [facility] Care Repr esentative (appointed verbally by patient or by statute hierarchy) [email or web address] Claude [facility] Repr esentative (appointed verbally by patient or by statute hierarchy) Care Teams Appetizer Packer Relationship Specialty Start Date End Date Devi Luna DO [address] [place] [address] [place] [address] PCP - General Internal Medicine 11/29/16 documented as of this encounter
--- OUTSIDE RECORDS SUMMARY | 2023-01-07 20:04 | External Medical Summary ---
Author Name Unknown Address Unknown Organization K01:[facility] [place] [address] [place] [address] Laboratory Report Ordering Provider Test Date Status LAURIEDANIELERICHIE 12/19/2022 13:20:42 Final Observation Date Value Abnormality Reference (Units ) Status Retic, % (auto) 12/19/2022 13:20:42 2.70 Above high normal 0.80-1.90 (%) Final Reticulocytes, Absolute 12/19/2022 13:20:42 97.2 31.3-100.1 (K/uL) Final Reticulocyte fraction, immature 12/19/2022 13:20:42 30.6 Above high normal 2.5-20.6 (%) Final Reticulocyte HGB 12/19/2022 13:20:42 33.6 29.7-37.4 (pg) Final Performing Location [facility] [place] [address] [facility] [address]
--- OUTSIDE RECORDS SUMMARY | 2023-01-07 20:05 | External Medical Summary | Summary of Care ---
Author Name Unknown Organization [facility] Address [address] [place] [address] Phone [phone] Care Team Providers Care Payroll Officer Name Role Phone LunaDevi masterson Primary Care Provider Reason for Visit * Reason Comments Outpatient Testing Encounter Details Date Type Department Care Team Description 12/04/2022 Laboratory Laboratory [address] [place] [phone] [place] [address] Chronic kidney disease, stage 3b (HCC) Allergies Active Allergy Reactions Severity Noted Date Comments Ceftriaxone Sodium hives Cisapride Propulsid--vomiting Cisapride 09/23/2017 Iodinated Contrast Media 09/23/2017 Renografin--itching/ feet only Penicillins hives Solifenacin Succinate Other (Please comment) 06/17/2008 Blurred vision at 10 mg dose documented as of this encounter (statuses as of 12/04/2022) Medications Medication Sig Dispensed Refills Start Date [...] 30 Tablet 11 11/05/2022 Active Nystatin-Triamcino lone 420496-4.1 UNIT/GM-% External Cream (Mycolog) Apply topically to affected area 3 times a day. Apply to vagina 30 g 0 11/15/2022 Active Sulfamethoxazole-T rimethoprim 800-160 MG Oral Tablet (Bactrim DS)Indications:Balaji teremia Take 1 Tablet by mouth in the morning and 1 Tablet before bedtime. Do all this for 14 days. Until gone. 28 Tablet 0 11/27/2022 12/11/2022 Active documented as of this encounter (statuses as of 12/04/2022) Active Problems Problem Noted Date Mitral valve [...] without esophagitis 06/02/2020 Mucopurulent chronic bronchitis 04/26/19 20 Hyperparathyroidism 04/26/2019 Esophageal dysmotility 04/26/2019 Chronic bilateral [...] as of this encounter (statuses as of 12/04/2022) Resolved Problems Problem Noted Date Resolved Date [...] 37.15 kg/m HTN, goal below 130/80 03/24/2009 4 Dyslipidemia, goal LDL below 100 02/08/2009 [...] as of this encounter (statuses as of 12/04/2022) Immunizations Name Administration Dates Next Due Covid-19, [...] Encounters Date Type Specialty Care Team Description 12/10/2022 Home Visit Family Medicine [facility] Scraper Loader Operator [address] [place] [address] [place] [address] 12/19/2022 Office Visit Family Medicine Denise Ley PA-C [address] [place] [address] [place] [address] 12/23/2022 Office Visit Gynecology Urology Shyla Coulter PA-C [address] [place] [address] Nurse Graham Uroarti Gerson [address] [place] [address] 04/07/2023 Imaging Radiology 04/21/2023 Telemedicine Urology Nolberto Osorio MD [address] [place] [id number] 7, Telemed Gerson Graham Urology Ex Rm [address] [place], [place] [address] 05/26/2023 Laboratory Laboratory [address] [place] [address] 05/27/2023 Office Visit Family Medicine Devi Luan[address] [place] [address] 06/02/2023 Office Visit Hematology Oncology Marnie Rivera MD [address] [place] [facility] [place] [address] Pending Results Name Type Priority Associated Diagnoses Date /Time CBC WITH WBC DIFFERENTIAL Lab Routine Chronic kidney disease, stage 3b (HCC) 12/04/2022 8:02 AM EDT BASIC METABOLIC PANEL Lab Routine Chronic kidney disease, stage 3b (HCC) 12/04/2022 8:02 AM EDT CBC Lab Routine Chronic kidney disease, stage 3b (HCC) 12/04/2022 8:02 AM EDT DIFFERENTIAL, AUTOMATED Lab Routine Chronic kidney disease, stage 3b (HCC) 12/04/2022 8:02 AM EDT Health Maintenance Due Date Last Done Comments Alpha-1 Antitrypsin 1953 DISCUSS TOBACCO CESSATION (REFER TO SMARTSET #2391) 05/22/2017 05/22/2016 DXA Scan 06/19/2019 06/18/2012, 04/26, 03/13/2005, Additional history exists Depression Screening 04/27/2022 04/27/2021 DTaP,Tdap,and Td Vaccines (2 - Td or Tdap) 10/14/2022 10/14/2012, 09/10/2007, 09/10/2007 COVID-19 Vaccine (2 - season) 2022 02/08/2022 Influenza Vaccine (FLU shot) (#1) 2022 01/21/2022, 10/27/2020, 12/17/2019, Additional history exists CKD PHOS USE SMARTSET 92513 05/04/202304/24, 02/19/2021, 10/14/2019, Additional history exists Albumin/Creatinine Ratio 11/20/2023 023, 12/04/2021, 02/20/2021, Additional history exists CKD HGB USE SMARTSET 94465 11/28/202311/27, 11/27/2022, 11/15/2022, Additional history exists O2 ASSESSMENT COMPLETED IN PAST YEAR FOR COPD 11/28/2023 11/27/2022 Pneumococcal Vaccine: 65+ Years Completed 12/07/2014, 01/09/2005 [...] this encounter Medical Devices Implanted Type Area Financial Assistance Specialist Device Identifier Shelf Expiration Date Model / Serial / Lot Mesh Vicryl 6 X 6 [facility]-M - [id number] Implanted:Qty: 1 on 12/01/2006 at [place] [facility] [place] N/A: Pelvis DO NOT USE 08/25/2011 VKM-M / / [id number] Lead Tined Quad 3889-28 - [id number] Implanted:Qty: 1 on 06/29/2013 at [place] [facility] [place] N/A: Back [employer] : NEUROLOGIC PAIN 04/23/2017 3889-28 / / [id number] Generator Ipg Battery 3058 - [id number] Implanted:Qty: 1 on 07/23/2013 at [place] [facility] [place] [place] [employer] : NEUROLOGIC PAIN 11/21/2014 3058 / [id number] / Kit Implant Tined Lead - [id number] Implanted:Qty: 1 on 11/24/2019 by Hugo Minor MD at OR [facility] Back [employer] 09/24/2021 1801 / / [id number] Description:no charge documented as of this encounter Visit Diagnoses Diagnosis Chronic kidney disease, stage 3b (HCC) documented in this encounter Advance Directives Documents on File Type Date Recorded Patient Taper/Finisher Expl anation Power of Ivory Polisher 06/15/2021 Viki [place] nder POWER OF DRIVER COURIER Latest Code Status on File Code Status [...] Relationship Healthcare Agent Relationship Communication Javier Arteaga [facility] R epresentative (appointed verbally by patient or by statute hierarchy) [email or web address] Viki Santamaria [facility] Repr esentative (appointed verbally by patient or by statute hierarchy) [email or web address] Claude [facility] Repr esentative (appointed verbally by patient or by statute hierarchy) Care Teams Payroll Officer Relationship Specialty Start Date End Date Luna, Devi Nichols[address] [place] [address] PCP - General Internal Medicine 11/29/16 documented as of this encounter
--- OUTSIDE RECORDS SUMMARY | 2023-01-07 20:05 | External Medical Summary | Summary of Care ---
Author Name Unknown Organization [facility] Address [address] [place] [address] Phone [phone] Care Team Providers Care All Purpose Clerk Name Role Phone LunaDevi masterson Primary Care Provider [phone] Reason for Visit * Reason Onset Date Comments Test Results 12/05/2022 Encounter Details Date Type Department Care Team Description 12/05/2022 Telephone Family Medicine [address] [phone] Roxann Veloz PA-C [address] [place] [address] [place] [address] Test Results Allergies Active Allergy Reactions Severity Noted Date Comments Ceftriaxone Sodium hives Cisapride Propulsid--vomiting Cisapride 09/23/2017 Iodinated Contrast Media 09/23/2017 Renografin--itching/ feet only Penicillins hives Solifenacin Succinate Other (Please comment) 06/17/2008 Blurred vision at 10 mg dose documented as of this encounter (statuses as of 12/06/2022) Medications Medication Sig Dispensed Refills Start Date [...] 30 Tablet 11 11/05/2022 Active Nystatin-Triamcino lone 101585-7.1 UNIT/GM-% External Cream (Mycolog) Apply topically to [...] as of this encounter (statuses as of 12/06/2022) Active Problems Problem Noted Date Mitral valve [...] as of this encounter (statuses as of 12/06/2022) Resolved Problems Problem Noted Date Resolved Date [...] as of this encounter (statuses as of 12/06/2022) Immunizations Name Administration Dates Next Due Covid-19, [...] encounter Miscellaneous Notes * Telephone Encounter - Alison Levi LPN - 12/06/2022 8:16 AM EDT Viki is aware and verbalizes understanding. * Telephone Encounter - Sherif Solorzano LPN - 12/05/2022 3:37 PM EDT message left for patient to return my phone call Return phone call to [phone] * Telephone Encounter - Sherif Solorzano LPN - 12/05/2022 3:35 PM EDT ----- Message from Roxann Veloz PA-C sent at 12/05/2022 12:55 PM EDT ----- Please let patient know: Her kidney function was much worse on the Bactrim. Need to stop that antibiotic and switch to a different one- sent Doxycycline to take instead. Need to then recheck kidney function on blood work next week. Thanks LEA Luna documented in this encounter Plan of Treatment Upcoming Encounters Date Type Specialty Care Team Description 12/10/2022 Home Visit Family Medicine Palmira Gutiérrez [address] [place] [address] 12/19/2022 Office Visit Family Medicine Denise Ley PA-C [address] [place] [address] [place] [address] 12/23/2022 Office Visit Gynecology Urology Shyla Coulter PA-C [address] [place] [address] Nurse Susanna Stevenson [address] [place] [address] 04/07/2023 Imaging Radiology 04/21/2023 Telemedicine Urology Nolberto Osorio MD [address] [place] [address] 7, Telemed Gerson Stevenson Urology Ex Rm [address] [place] [address] 05/26/2023 Laboratory Laboratory [address] [place] [address] 05/27/2023 Office Visit Family Medicine Luna Devi Ogdene, DO [address] [facility] [place] [address] 06/02/2023 Office Visit Hematology Oncology Marnie Rivera MD [address] [place] [address] Health Maintenance Due Date Last Done Comments [...] Additional history exists CKD PHOS USE SMARTSET 72326 05/04/202304/24, 02/19/2021, 10/14/2019, Additional history exists Albumin/Creatinine Ratio 11/20/2023 023, 12/04/2021, 02/20/2021, Additional history exists O2 ASSESSMENT COMPLETED IN PAST YEAR FOR COPD 11/28/2023 11/27/2022 CKD HGB USE SMARTSET 04363 12/05/202312/04, 12/04/2022, 11/27/2022, Additional history exists Pneumococcal Vaccine: 65+ Years Completed 12/07/2014, 01/09/2005 [...] this encounter Medical Devices Implanted Type Area Filling Carrier Device Identifier Shelf Expiration Date Model / Serial / Lot Mesh Vicryl 6 X 6 Vkm-M - [id number] Implanted:Qty: 1 on 12/01/2006 at OR [facility] N/A: Pelvis DO NOT USE 08/25/2011 VKM-M / / [id number] Lead Tined Quad 3889-28 - [id number] Implanted:Qty: 1 on 06/29/2013 at OR [facility] N/A: Back [employer] : NEUROLOGIC PAIN 04/23/2017 3889-28 / / [id number] Generator Ipg Battery 3058 - [id number] Implanted:Qty: 1 on 07/23/2013 at OR [facility] [employer] : NEUROLOGIC PAIN 11/21/2014 3058 / [id number] / Kit Implant Tined Lead - [id number] Implanted:Qty: 1 on 11/24/2019 by Hugo Minor MD at OR [facility] Back [employer] MOD[employer] 09/24/2021 1801 / / [id number] Description:no charge documented as of this encounter Advance Directives Documents on File Type Date Recorded Patient Family Service Aide Expl anation Power of Poultry Hanger 06/15/2021 [place] nder POWER OF FOUNDRY METALLURGIST Latest Code Status on File Code Status [...] Name Relationship Healthcare Agent Relationship Communication [facility] R epresentative (appointed verbally by patient or by statute hierarchy) [email or web address] Viki Hina Adult Child Health Care Repr esentative (appointed verbally by patient or by statute hierarchy) [email or web address] Adult [facility] Care Repr esentative (appointed verbally by patient or by statute hierarchy) Care Teams All Purpose Clerk Relationship Specialty Start Date End Date Devi Luna, [address] [place] [address] PCP - General Internal Medicine 11/29/16 documented as of this encounter
--- OUTSIDE RECORDS SUMMARY | 2023-01-07 20:05 | External Medical Summary | Summary of Care ---
Author Name Unknown Organization [facility] Address [address] [place] [address] Phone [phone] Care Team Providers Care Russian Language Professor Name Role Phone Devi Luna DO Primary Care Provider [phone] Reason for Visit * Reason Onset Date Comments Hospital Follow-Up Pt was feeldeclan g okay, then today started feeling weak again this morning. Hospital Follow-Up 11/27/2022 Encounter Details Date Type Department Care Team Description 11/27/2022 Office Visit [facility] Medicine [address] [address] Devi Luna DO [address] [place] [address] [place] [address] Hospital discharge follow-up*; Bacteremia; Generalized weakness Allergies Active Allergy Reactions Severity Noted Date Comments Ceftriaxone Sodium hives Cisapride Propulsid--vomiting Cisapride 09/23/2017 Iodinated Contrast Media 09/23/2017 Renografin--itching/ feet only Penicillins hives Solifenacin Succinate Other (Please comment) 06/17/2008 Blurred vision at 10 mg dose documented as of this encounter (statuses as of 11/27/2022) Medications Medication Sig Dispensed Refills Start Date [...] 30 Tablet 11 11/05/2022 Active Nystatin-Triamcino lone 125617-7.1 UNIT/GM-% External Cream (Mycolog) Apply topically to [...] as of this encounter (statuses as of 11/27/2022) Active Problems Problem Noted Date Mitral valve [...] as of this encounter (statuses as of 11/27/2022) Resolved Problems Problem Noted Date Resolved Date [...] as of this encounter (statuses as of 11/27/2022) Immunizations Name Administration Dates Next Due Covid-19, [...] Sign Reading Time Taken Comments Blood Pressure 110/56 11/27/2022 11:59 AM EDT Pulse 90 11/27/2022 11:59 AM EDT Temperature 37.5 C (99.5 F) 11/27/2022 1 1:59 AM EDT Respiratory Rate - - Oxygen Saturation 93% 11/27/2022 11: 59 AM EDT Inhaled Oxygen Concentration - - Weight 78.4 kg (172 lb 14.4 oz) 023 11:59 AM EDT Height - - Body Mass Index 26.29 10/14/2022 11:20 AM EDT documented in this encounter Progress Notes * Devibasil Nichols Cheryl, DO - 11/27/2022 12:00 PM EDT SUBJECTIVE: Debar Rose is a 87 year old female. Chief Complaint Patient presents with Hospital Follow-Up Pt was feeling okay, then today started feeling weak again this morning. Hospital Follow-Up Recent Admission: Patient was recently admitted to [facility]. The date of discharge was 11/24/22. Discharge report receivedand reviewed. Admitted with hypoxia - treated with prednisone/aztreonam and azithromycin. She was treated empirically for UTI although in-hospital culture was mixed elieser/likely skin contaminant. Shewas also found to have bacteremia with coag negative staph - 3/4 bottles in initial 2 sets and 1/2 bottles in second set. Started on vancomycin, but then stopped after ID felt as this was likely to be due to contaminant. Had generalized weakness which seems to have improved by hospital discharge. HPI: Debra Rose presents today with her for hospital discharge. Today she reports feeling weak. She is only able to walk short distances. She is here in a wheelchair but is using a walker at home. Her felt she was doing well until today. Last night she was having sweats again. She is drinking a lot but her appetite is not good. Occ dry cough. No abd pain. Bowels are moving okay. Denies urinary frequency. Discussed that she may need further hospitalization, but she would really like to avoid this if possible. 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 Cystocele, lateral N81.12 B12 deficiency E53.8 Depression with anxiety F41.8 Essential hypertension with goal blood pressure less than 140/90 I10 H/O fracture of vertebral column Z87.81 Vaginal pessary present Z96.0 Chronic bilateral low back pain without sciatica M54.50, G89.29 Mucopurulent chronic bronchitis ([facility]) J41.1 Hyperparathyroidism ([facility]) E21.3 Esophageal dysmotility K22.4 Current mild episode of major depressive disorder without prior episode ([facility]) F32.0 Gastro-esophageal reflux disease without esophagitis K21.9 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 ([facility]) I12.9, N18.32 Chronic kidney disease, stage 3b ([facility]) N18.32 COPD, group B, by GOLD 2017 classification ([facility]) J44.9 Renal mass N28.89 Iron deficiency anemia D50.9 Bipolar 2 disorder ([facility]) F31.81 History of violent behavior Z87.898 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 30 Tablet 5 traMADol HCl 50 MG Oral Tablet (Ultram) [...] in the morning. 30 Tablet 11 Nystatin-Triamcinolone 098015-6.1 UNIT/GM-% External Cream (Mycolog) Apply topically to affected area 3 times a day. Apply to vagina 30 g 0 No current facility-administered medications for this visit. Current and discharge medications have been reconciled. Review of patient's allergies indicates: Allergen Reactions Ceftriaxone Sodium hives Cisapride Propulsid--vomiting Cisapride Iodinated Contrast Media Renografin--itching/feet only Penicillins hives Vesicare [Solifenacin Succinate] Other (Please comment) Blurred vision at 10 mg dose OBJECTIVE: BP 110/56 | Pulse 90 | Temp 37.5 C (99.5 F) | Wt 78.4 kg (172 lb 14.4 oz) | SpO2 93% | BMI 26.29 kg/m | BSA 1.94 m Review Of Systems: Skin: negative Eyes: negative Ears/Nose/Throat: negative, (+) chronic runny nose Respiratory: negative Cardiovascular: negative Gastrointestinal: negative Genitourinary: negative Musculoskeletal: generalized weakness Neurologic: generalized weakness Psychiatric: negative Hematologic/Lymphatic/Immunologic: see HPI Endocrine: negative PHYSICAL EXAM: General: awake and alert, in wheelchair, appears unwell. Neck: supple, no adenopathy, thyroid normal size, non-tender, without nodularity Heart: regular rate & rhythm and no murmur Lungs: chest symmetric with normal AP diameter, no chest deformities noted, no chest wall tenderness, (+) rales at the bases bilaterally Abdomen: abdomen soft, non-tender, and normal bowel sounds Extremities: no joint deformities, effusion, or inflammation, no edema Neuro Exam: alert & oriented x 3 with fluent speech, no focal motor/sensory deficits Skin: skin color, texture, turgor are normal, no rashes or significant lesions ASSESSMENT/PLAN: Hospital discharge follow-up (Primary) - she does not appear well and it seems like her symptoms are recurring. She has rales at the bases bilaterally. With her persistent bacteremia in the hospital I fear endocarditis which might be contributing to some acute heart failure. I would really like herto return to the hospital, but she declines this today. I will obtain labs as below and start her on oral bactrim, but I have advised both she and her that if her condition worsens or fails to improve that she should go to the hospital via ambulance. They expressed understanding. - DISCH MED RECON CUR MED LIS Bacteremia - long discussion with patient and regarding what bacteremia is, the risks/benefits, and preferred treatment. - CULTURE, BLOOD; Future; Expected date: 11/27/2022 - CULTURE, BLOOD; Future; Expected date: 11/27/2022 - CBC WITH WBC DIFFERENTIAL; Future; Expected date: 11/27/2022 - COMPREHENSIVE METABOLIC PANEL; Future; Expected date: 11/27/2022 - Sulfamethoxazole-Trimethoprim 800-160 MG Oral Tablet (Bactrim DS); Take 1 Tablet by mouth in the morning and 1 Tablet before bedtime. Do all this for 14 days. Until gone. Generalized weakness Follow-up: Return in about 1 week (around 12/04/2022). | Check-out note: 1 week with Roxann if able for recheck Devi Luna DO documented in this encounter Plan of Treatment Upcoming Encounters Date Type Specialty Care Team Description 12/04/2022 Office Visit Family Medicine Roxann Veloz PA-C [address] [place] [address] [place] [address] 12/23/2022 Office Visit Gynecology Urology Shyla Coulter PA-C [address] [place] [address] Nurse Susanna Stevenson [address] [place] [address] 04/07/2023 Imaging Radiology 04/21/2023 Office Visit Urology Nolberto Osorio MD [address] [place] [address] 05/26/2023 Laboratory Laboratory [address] [place] [address] 05/27/2023 Office Visit Family Medicine Devi Luna, [address] [place] [address] 06/02/2023 Office Visit Hematology Oncology Marnie Rivera MD [address] [place] [address] Pending Results Name Type Priority Associated Diagnoses Date /Time CULTURE, BLOOD Lab Routine Bacteremia 11/27/2022 12:54 PM EDT CBC WITH WBC DIFFERENTIAL Lab Routine Bacteremia 11/27/2022 12:54 PM EDT COMPREHENSIVE METABOLIC PANEL Lab Routine Bacteremia 11/27/2022 12:54 PM EDT Scheduled Orders Name Type Priority Associated Diagnoses Orde r Schedule CULTURE, BLOOD Lab Routine Bacteremia Expected: 11/27/2022 (Approximate), Expires: 11/27/2023 CULTURE, BLOOD Lab Routine Bacteremia Expected: 11/27/2022 (Approximate), Expires: 11/27/2023 CBC WITH WBC DIFFERENTIAL Lab Routine Bacteremia Expected: 11/27/2022 (Approximate), Expires: 11/28/2023 COMPREHENSIVE METABOLIC PANEL Lab Routine Bacteremia Expected: 11/27/2022 (Approximate), Expires: 11/27/2023 Health Maintenance Due Date Last Done Comments [...] Additional history exists CKD PHOS USE SMARTSET 20856 05/04/2023 03, 02/19/2021, 10/14/2019, Additional history exists CKD HGB USE SMARTSET 52151 11/16/202311/15, 11/15/2022, 10/29/2022, Additional history exists O2 ASSESSMENT COMPLETED IN PAST YEAR FOR COPD 11/16/2023 11/15/2022 Albumin/Creatinine Ratio 11/20/2023 023, 12/04/2021, 02/20/2021, Additional history exists Pneumococcal Vaccine: 65+ Years [...] this encounter Medical Devices Implanted Type Area Ada Accommodation Consultant Device Identifier Shelf Expiration Date Model / Serial / Lot Mesh Vicryl 6 X 6 Vkm-M - [id number] Implanted:Qty: 1 on 12/01/2006 at OR [facility] N/A: Pelvis DO NOT USE 08/25/2011 VKM-M / / [id number] Lead Tined Quad 3889-28 - [id number] Implanted:Qty: 1 on 06/29/2013 at OR [facility] N/A: Back [employer] : NEUROLOGIC PAIN 04/23/2017 3889-28 / / [id number] Generator Ipg Battery 3058 - [id number] Implanted:Qty: 1 on 07/23/2013 at OR [facility] [employer] : NEUROLOGIC PAIN 11/21/2014 3058 / [id number] / Kit Implant Tined Lead - [id number] Implanted:Qty: 1 on 11/24/2019 by Hugo Minor MD at OR [facility] Back [employer] 09/24/2021 1801 / / [id number] Description:no charge documented as of this encounter Visit Diagnoses Diagnosis Hospital discharge follow-up- Primary Other follow-up examination Bacteremia Generalized weakness Other malaise and fatigue documented in this encounter Advance Directives Documents on File Type Date Recorded Patient Putty And Patch Worker Expl anation Power of Component Engineer 06/15/2021 POWER OF A TTORNEY Latest Code Status on File Code Status [...] Relationship Healthcare Agent Relationship Communication Javier Arteaga [facility] R epresentative (appointed verbally by patient or by statute hierarchy) [email or web address] Viki [facility] Care Repr esentative (appointed verbally by patient or by statute hierarchy) [email or web address] [facility] Repr esentative (appointed verbally by patient or by statute hierarchy) Care Teams Russian Language Professor Relationship Specialty Start Date End Date Devi Luna, [address] [place] [address] PCP - General Internal Medicine 11/29/16 documented as of this encounter"
--- OUTSIDE RECORDS SUMMARY | 2023-01-07 20:05 | External Medical Summary | Summary of Care ---
Author Name Unknown Organization [facility] Address [address] [place] [address] Phone [phone] Care Team Providers Care Insulator Cutter And Former Name Role Phone Devi Luna Primary Care Provider [phone] Reason for Visit * Reason Onset Date Comments Follow Up 12/09/2022 Encounter Details Date Type Department Care Team Description 12/09/2022 Telephone Care Coordination [address] [place] [address] Palmira Gutiérrez [facility] C.O.D. Audit Clerk [address] [place] [address] [place] [id number] Follow Up Allergies Active Allergy Reactions Severity Noted Date Comments Ceftriaxone Sodium hives Cisapride Propulsid--vomiting Cisapride 09/23/2017 Iodinated Contrast Media 09/23/2017 Renografin--itching/ feet only Penicillins hives Solifenacin Succinate Other (Please comment) 06/17/2008 Blurred vision at 10 mg dose documented as of this encounter (statuses as of 12/09/2022) Medications Medication Sig Dispensed Refills Start Date [...] 30 Tablet 11 11/05/2022 Active Nystatin-Triamcino lone 510377-6.1 UNIT/GM-% External Cream (Mycolog) Apply topically to [...] as of this encounter (statuses as of 12/09/2022) Active Problems Problem Noted Date Mitral valve [...] as of this encounter (statuses as of 12/09/2022) Resolved Problems Problem Noted Date Resolved Date [...] as of this encounter (statuses as of 12/09/2022) Immunizations Name Administration Dates Next Due Covid-19, [...] encounter Miscellaneous Notes * Telephone Encounter - Palmira Gutiérrez [facility] C.O.D. Audit Clerk - 12/09/2022 4:18 PM EDT JANNY #2 Call to daughter. Reports patient received and is taking the doxycycline. Daughter adjusted pill box. No falls or breathing difficulties. Daughter assumes patient is still smoking. Could smell it in the air and saw that patient had a ship manager. Daughter verbalizing concern that patient is having her do everything for her, and she is concerned for his wellbeing. States in the presence of other family members or medical personal, patient is more independent. Daughter states that therapy came in to see her in the hospital and had step out of the room. watched from the hallway as patient transferred from chair, put socks on, and ambulated across the room. Saw and refused to go any further. Daughter then took to another area of the hospital. Therapist reported that patient was able to ambulate 50 feet with wheeled walker when was not there. documented in this encounter Plan of Treatment Upcoming Encounters Date Type Specialty Care Team Description 12/10/2022 Home Visit Family Medicine Palmira Gutiérrez Community [facility] Assistant [address] [place] [address] [place] [address] 12/19/2022 Office Visit Family Medicine Denise Ley PA-C [address] [place] [address] [place] [address] 12/23/2022 Office Visit Gynecology Urology Shyla Coulter PA-C [address] [place] [address] Nurse Susanna Stevenson [address] [place] [address] 04/07/2023 Imaging Radiology 04/21/2023 Telemedicine [facility]rology [facility] [place] [address] 7, Telemed Gerson Stevenson Urology Ex Rm [address] [place] [address] 05/26/2023 Laboratory Laboratory [address] [place] [address] 05/27/2023 Office Visit Family Medicine Luna, Devi Nichols, [address] [place] [address] 06/02/2023 Office Visit Hematology Oncology Marnie Rivera MD [address] [place] [address] Health Maintenance Due Date Last Done Comments [...] Additional history exists CKD PHOS USE SMARTSET 59861 05/04/202304/24, 02/19/2021, 10/14/2019, Additional history exists Albumin/Creatinine Ratio 11/20/2023 023, 12/04/2021, 02/20/2021, Additional history exists O2 ASSESSMENT COMPLETED IN PAST YEAR FOR COPD 11/28/2023 11/27/2022 CKD HGB USE SMARTSET 34185 12/05/202312/04, 12/04/2022, 11/27/2022, Additional history exists Pneumococcal [...] this encounter Medical Devices Implanted Type Area Manufacturing Plant Technician Device Identifier Shelf Expiration Date Model / Serial / Lot Mesh Vicryl 6 X 6 Vk-M - [id number] Implanted:Qty: 1 on 12/01/2006 [place] [facility]/A: Pelvis DO NOT USE 08/25/2011 VKM-M / / [id number] Lead Tined Quad 3889-28 - [id number] Implanted:Qty: 1 on 06/29/2013 [place] [facility] N/A: Back [employer] : NEUROLOGIC PAIN 04/23/2017 3889-28 / / [id number] Generator Ipg Battery 3058 - [id number] Implanted:Qty: 1 on 07/23/2013 at [place] [facility] [employer] : NEUROLOGIC PAIN 11/21/2014 3058 / [id number] / Kit Implant Tined Lead - [id number] Implanted:Qty: 1 on 11/24/2019 by Hugo Minor MD at OR [facility] Back [employer] 09/24/2021 1801 / / [id number] Description:no charge documented as of this encounter Advance Directives Documents on File Type Date Recorded Patient Glue Maker Expl anation Power of Executive Community Planning 06/15/2021 [place] nder POWER OF CAN DRYER Latest Code Status on File Code Status [...] Relationship Healthcare Agent Relationship Communication Javier Rose [facility] Care R epresentative (appointed verbally by patient or by statute hierarchy) [email or web address] Viki Santamaria Adult Child Health Care Repr esentative (appointed verbally by patient or by statute hierarchy) [email or web address] Claude Rose Adult Child Health Care Repr esentative (appointed verbally by patient or by statute hierarchy) Care Teams Insulator Cutter And Former Relationship Specialty Start Date End Date Devi Luna, [address] [place] [address] PCP - General Internal Medicine 11/29/16 documented as of this encounter
--- OUTSIDE RECORDS SUMMARY | 2023-01-07 20:05 | External Medical Summary ---
Author Name Unknown Address Unknown Organization K01:LABORATORY [facility] - [facility] [address] [facility] [address] Laboratory Report Ordering Provider Test Date Status BRITTANY ROJAS 12/04/2022 08:02:05 Final Observation Date Value Abnormality Reference (Units ) Status WBC, Total 12/04/2022 08:02:05 8.22 4.00-10.80 (K/uL) Final RBC 12/04/2022 08:02:05 3.46 3.85-5.15 (M/uL) Final Hemoglobin 12/04/2022 08:02:05 10.5 Below low normal 12.0-15.3 (g/dL) Final HCT 12/04/2022 08:02:05 36.0 36.0-45.2 (%) Final MCV 12/04/2022 08:02:05 104.0 81.5-97.5 (fL) Final MCH 12/04/2022 08:02:05 30.3 27.0-34.0 (pg) Final MCHC 12/04/2022 08:02:05 29.2 32.0-36.0 (g/dL) Final RDW 12/04/2022 08:02:05 16.7 11.5-15.5 (%) Final Platelets 12/04/2022 08:02:05 242 140-400 (K/uL) Final MPV 12/04/2022 08:02:05 10.7 6.6-11.1 (fL) Final Nucleated erythrocytes/100 leukocytes [Ratio] in Blood by Automated count 12/04/2022 08:02:05 0 <=0 (/100 WBCs) Final Performing Location LABORATORY [facility] - [address] [facility] [address]
--- OUTSIDE RECORDS SUMMARY | 2023-01-07 20:05 | External Medical Summary | Summary of Care ---
Author Name Unknown Organization [facility] Address [address] [place] [address] Phone [phone] Care Team Providers Care Strategic Buyer Name Role Phone Devi Luna DO Primary Care Provider Encounter Details Date Type Department Care Team Description 11/29/2022 Telephone Family Medicine [address] [phone] Devi Luna DO [address] [place] [address] [place] [address] Allergies Active Allergy Reactions Severity Noted Date Comments Ceftriaxone Sodium hives Cisapride Propulsid--vomiting Cisapride 09/23/2017 Iodinated Contrast Media 09/23/2017 Renografin--itching/ feet only Penicillins hives Solifenacin Succinate Other (Please comment) 06/17/2008 Blurred vision at 10 mg dose documented as of this encounter (statuses as of 11/29/2022) Medications Medication Sig Dispensed Refills Start Date [...] 30 Tablet 11 11/05/2022 Active Nystatin-Triamcino lone 480934-7.1 UNIT/GM-% External Cream (Mycolog) Apply topically to [...] as of this encounter (statuses as of 11/29/2022) Active Problems Problem Noted Date Mitral valve stenosis, moderate 05/28/19 23 Nonrheumatic aortic valve insufficiency 05/27/2022 Mild pulmonary [...] as of this encounter (statuses as of 11/29/2022) Resolved Problems Problem Noted Date Resolved Date [...] as of this encounter (statuses as of 11/29/2022) Immunizations Name Administration Dates Next Due Covid-19, [...] encounter Miscellaneous Notes * Telephone Encounter - Mayi Mora LPN - 11/29/2022 4:[address] Luna asked me to call to find out how Debra is feeling with the antibiotic. I tried to call, but I was not able to reach pt or pt's . documented in this encounter Plan of Treatment Upcoming Encounters Date Type Specialty Care Team Description 12/04/2022 Office Visit Family Medicine Roxann Veloz PA-C [address] [place] [address] [place] [address] 12/23/2022 Office Visit Gynecology Urology Shyla Coulter PA-C [address] [place] [address] Nurse Graham Uroarti Nieto [address] [place] [address] 04/07/2023 Imaging Radiology 04/21/2023 Telemedicine Urology Nolberto Osorio MD [address] [place] [address] 7, Telemed Gerson Stevenson Urology Ex Rm [address] [place], [place] [address] 05/26/2023 Laboratory Laboratory [address] [place] [address] 05/27/2023 Office Visit Family Medicine Devi Luna[address] [place] [address] 06/02/2023 Office Visit Hematology Oncology Marnie Rivera MD [address] [facility] [place] [address] Health Maintenance Due Date Last Done Comments Alpha-1 Antitrypsin 1953 DISCUSS TOBACCO CESSATION (REFER TO SMARTSET #3291) 05/22/2017 05/22/2016 DXA Scan 06/19/2019 06/18/2012, 04/26, 03/13/2005, Additional history exists Depression Screening 04/27/2022 04/27/2021 DTaP,Tdap,and Td Vaccines (2 - Td or Tdap) 10/14/2022 10/14/2012, 09/10/2007, 09/10/2007 COVID-19 Vaccine ( season) 2022 02/08/2022 Influenza Vaccine (FLU shot) (#1) 2022 01/21/2022, 10/27/2020, 12/17/2019, Additional history exists CKD PHOS USE SMARTSET 15359 05/04/202304/24, 02/19/2021, 10/14/2019, Additional history exists Albumin/Creatinine Ratio 11/20/2023 023, 12/04/2021, 02/20/2021, Additional history exists CKD HGB USE SMARTSET 69325 11/28/202311/27, 11/27/2022, 11/15/2022, Additional history exists O2 [...] this encounter Medical Devices Implanted Type Area Production Cell Leader Device Identifier Shelf Expiration Date Model / Serial / Lot Mesh Vicryl 6 X 6 Vkm-M - [id number] Implanted:Qty: 1 on 12/01/2006 at [place] [facility] N/A: Pelvis DO NOT USE 08/25/2011 VKM-M / / [id number] Lead Tined Quad 3889-28 - [id number] Implanted:Qty: 1 on 06/29/2013 at OR [facility] N/A: Back [employer] : NEUROLOGIC PAIN 04/23/2017 3889-28 / / [id number] Generator Ipg Battery 3058 - [id number] Implanted:Qty: 1 on 07/23/2013 at OR [facility] [employer] : NEUROLOGIC PAIN 11/21/2014 3058 / [id number] / Kit Implant Tined Lead - [id number] Implanted:Qty: 1 on 11/24/2019 by Hugo Minor MD at OR [facility] Back [employer] 09/24/2021 1801 / / [id number] Description:no charge documented as of this encounter Advance Directives Documents on File Type Date Recorded Patient Carpenter Cradle And Dolly Expl anation Power of Process Laboratory Specialist 06/15/2021 Viki [place] nder POWER OF CIVIL ENGINEER'S AIDE Latest Code Status on File Code Status [...] Relationship Healthcare Agent Relationship Communication Javier Arteaga [facility] R epresentative (appointed verbally by patient or by statute hierarchy) [email or web address] Viki Hina [facility] Repr esentative (appointed verbally by patient or by statute hierarchy) [email or web address] [facility] Repr esentative (appointed verbally by patient or by statute hierarchy) Care Teams Strategic Buyer Relationship Specialty Start Date End Date Devi Luna, [address] [place] [id number] PCP - General Internal Medicine 11/29/16 documented as of this encounter
--- OUTSIDE RECORDS SUMMARY | 2023-01-07 20:05 | External Medical Summary | Summary of Care ---
Author Name Unknown Organization [facility] Address [address] [place] [address] Phone [phone] Care Team Providers Care Associate Loan Officer Name Role Phone Devi Luna DO Primary Care Provider Reason for Referral * Evaluate & Treat - Unlimited Visits (Within 3 days (urgent)) - Authorized Specialty Diagnoses / Procedures Referred By Félix kim Referred To Contact Pneumatic Press Hand Diagnoses Hospital discharge follow-up Devi Luna DO [address] [place] [address] [place] [address] Referral ID Status Reason Start Date Expiration Date Visits Requested Visits Authorized [id number] Authorized Specialty Services Required 11/27/2022 1 1 Question Answer Referral Priority Within 3 days (urgent) Program Type Case Management Complex Case Management [facility] Health Device(s) Requested Other (See Comment) - post discharge IVR calls Alarm Settings Standard per protocol Any specialized instructions wkly x 4, on Tuesdays at 7 PM, starting 12/03/22. [phone] thank you Encounter Details Date Type Department Care Team Description 11/27/2022 Pneumatic Press HandVerification Engineer Medicine Joce Poe[address] [place] [phone] Dia Jenkins RN [address] [place] [address] Medical home patient encounter*; Hospital discharge follow-up; Generalized weakness; UTI (urinary tract infection); COPD exacerbation (HCC); Hypoxia; Advanced care planning/counseling discussion Allergies Active Allergy Reactions Severity Noted Date [...] 30 Tablet 11 11/05/2022 Active Nystatin-Triamcino lone 278207-9.1 UNIT/GM-% External Cream (Mycolog) Apply topically to [...] Progress Notes * Dia Jenkins RN - 11/27/2022 5:36 PM EDT Pneumatic Press Hand Progress Note: Date: 11/27/22 Assigned Patient Tier: 2 Connected with step-daughter, Viki, via telephone. Verified patient name/. Advised patient that call is being recorded for quality and training purposes. Patient's primary phone number goes to daughter. Assessment: Step-Daughter, Viki, noted the following: alert, oriented to person and place, not very pleasant at time. Screams at her . Has a hx of violent behavior and alzheimers dementia with agitation. Patient is also bipolar. When is around, patient is helpless and makes him do everything for her - including feeding her, wiping her bottom, everything. When he is not near, she does more for herself. Patient is very weak. She is active with [facility] for nursing, PT, and OT. Patient lives with her 92 year old spouse, in a one story home, with a ramp entrance. There is one step up into the kitchen. Daughter manages patients medications, uses med systems requirements planner which she fills weekly. Patient does have one other stepchild, and 2 biological sons - but they all look to Viki to take care, and manage, everything. In the hospital, patient was min assist with ADL's, ambulating withwalker, etc. As soon as patient was home, she was max assist to dependent - on spouse. Spouse told iVki he didn't know how much longer he was going to be able to care for patient. He is feeling over whelmed, and he is 92 years old, but he will not encourage patient to do for herself, or refuse to do anything. Patient used wheelchair for today's appointment, but uses a walker and assist at home. Able to go short distances, like into the bathroom, but does also have a bedside commode if needed. No reports of chest pain. Denies edema or shortness of breath. Has occasional dry cough. Continues to smoke, reports to others she is cutting down, but will hide cigarettes, or demand her spouse givesher more, and he will. Chronic runny nose. Reports night sweats. Bowels moving. Hx of slow transit constipation. Recent UTI. Denies frequency. Urge incontinence. Has a hx of chronic low back pain, but no complaints of pain at this time. Sleeping in her own bed. Occasional naps. Adequate fluid intake, but decreased appetite/intake. Weight at baseline. Wears glasses, and is hard of hearing, but does not have hearing aides. BP at goal. Advance Directives already completed and copy available in chart. Enrolled in post discharge IVR calls. PCP wanted to send patient back to the hospital today, patient declined. Did you receive an alert for an annual wellness visit? No Is this call for a hospital, retirement or rehab facility discharge to home? Yes - patient was inpatient at [facility] from 11/20/22 to 11/24/22. Discharge dx: weakness, UTI, copd exacerbation, hypoxia. Medication Reconciliation: Medication Reconciliation completed: completed by PCP at hospital follow up appointment today. Confirmed new antibiotic picked up and starting today. Review of Current goals: Discussed the following patient-centered CM goals with the patient during this discussion: -Prevention: Prevent admission/readmission -Status: On Track OV[facility] referral placed. Med rec completed by PCP. Daughter manages medications, fills med systems requirements planner weekly. Enrolled in post discharge IVR calls. CM direct line number given to daughter,which she put into her phone. PCP hospital f/u appt kept today. Confirmed new antibiotic picked up and will be starting today.. -: Patient will recognize signs of UTI and promote healthy lifestyle changes to prevent UTIs. -Status: On Track Patient was treated for UTI while inpatient. Review s/sx of UTI. Review UTI prevention. Encourage fluids, chiki water. SMAP developed and sent.. -SAFETY: Prevent falls or injuries -Status: At Risk [facility]IO referral placed. Active with home therapy. Unable to ambulate without device. Spouse supportive - but supportive to the point of enabling patient to not do anything. COPD Patient: YES Cough: dry, occasional, Breathing: Breathing at Baseline CHF Patient: NO CM Plan: Reviewed 3 Red Flags with patient. Advised to call CM with any of the following: Red Flag 1: returnof urinary symptoms, Red Flag 2: increased shortness of breath/cough, or Red Flag 3: new or uncontrolled pain, falls or injuries and Referral to: [facility] for home visit, home safety assessment, bottles out med rec, vital signs including pulse ox and weight if able, CAT survey. Ask your COPD questions. Review UTI symptoms and prevention. Remind them that disposable briefs/pads need to be changed as soon as damp or could cause UTI. Encourage use of walker with all ambulation. Encourage participation with home therapy and follow through on exercises the days the therapist is not there. Remote Patient Monitoring: At this time, RPM not offered/considered for patient due to not needed. Plan for Future Contacts: Plan to follow up within 1 week to check progress on the following goals/needs - participating withtherapy? Increased participation in ADL's? Ambulating more? Respiratory status? Cough? Still smoking? Sweats at night? Any urinary symptoms? Eating any better? . Planned contacts from the following parties will occur this week: PCP office visit and home health as additional contacts per workflow. Advancement/Closure Plan: Keep patient at current Tier with reassessment per workflow. Patient provided CM contact information and encouraged to call with any changes in condition. SNP Member? No PCP Notified of enrollment in CM/HM program: Yes, previously Is Provider in agreement with POC? Yes Dia Jenkins RN Outpatient Case Management documented in this encounter Miscellaneous Notes * ACP (Advance Care Planning) - Dia Jenkins RN - 11/27/2022 4:30 PM EDT Images from the original note were not included. Patient-centered Communication 11/27/2022 The patient/surrogate voluntarily agreed to participate in advance care planning discussion. Location: telephone Individual(s) present for conversation: Daughter(s) Decisions Additional Comments Synopsis SmartLink Most Recent Value Past ~10 years 11/27/2022 17:34 Additional Comments Additional Comments: Advance Directives DMPOA/Living Will complete. Copy available in chart. Confirmed with daughterViki, that decision makers/DMPOA, is still correct. Confirmed. 11/27/2022 Advance Directives DMPOA/Living Will complete. Copy available in chart. Confirmed with daughterViki, that decision makers/DMPOA, is still correct. Confirmed. Discerning What Matters Most to the Patient: Synopsis SmartLink Most Recent Value Past ~10 years 11/27/2022 17:33 Discerning What Matters Most to the Patient Their current SYMPTOMS include: Tiredness;Lack of appetite 11/27/2022 Tiredness;Lack of appetite Was PROGNOSIS discussed? No 11/27/2022 No The patient's HOPES are: Avoid further hospitalization 11/27/2022 Avoid further hospitalization Source: Content from Respecting Choices Program Aligning Care With What Matters Most: No data to display Rationale for Decisions Source: Content from Respecting Choices Program 0 minutes spent in direct [id number] discussion today, Dia Jenkins RN documented in this encounter Plan of Treatment Upcoming Encounters Date Type Specialty Care Team Description 12/04/2022 Office Visit Family Medicine Roxann Veloz PA-C [address] [place] [address] [place] [address] 12/23/2022 Office Visit Gynecology Urology Shyla Coulter PA-C [address] [place] [address] Nurse Susanna Stevenson [address] [place] [address] 04/07/2023 Imaging Radiology 04/21/2023 Office Visit Urology Nolberto Osorio MD [address] [place] [address] 05/26/2023 Laboratory Laboratory [address] [place] [address] 05/27/2023 Office Visit Family Medicine Devi Luna DO [address] [place] [address] [place] [address] 06/02/2023 Office Visit Hematology Oncology Marnie Rivera MD [address] [place] [address] Scheduled Referrals Name Type Priority Associated Diagnoses Orde r Schedule REMOTE PATIENT MONITORING REFERRAL Referral Within 3 days (urgent) Hospital discharge follow-up Ordered: 11/27/2022 Health Maintenance Due Date Last Done Comments [...] Additional history exists CKD PHOS USE SMARTSET 18060 05/04/202304/24, 02/19/2021, 10/14/2019, Additional history exists CKD HGB USE SMARTSET 67556 11/16/202311/15, 11/15/2022, 10/29/2022, Additional history exists O2 ASSESSMENT COMPLETED IN PAST YEAR FOR COPD 11/16/2023 11/27/2022 Albumin/Creatinine Ratio 11/20/2023 023, 12/04/2021, 02/20/2021, Additional [...] this encounter Medical Devices Implanted Type Area Ship Boat Or Barge Mate Device Identifier Shelf Expiration Date Model / Serial / Lot Mesh Vicryl 6 X 6 Vkm-M - [id number] Implanted:Qty: 1 on 12/01/2006 at [place] [facility] N/A: Pelvis DO NOT USE 08/25/2011 VKM-M / / [id number] Lead Tined Quad 3889-28 - [id number] Implanted:Qty: 1 on 06/29/2013 at OR [facility] N/A: Back [employer] : NEUROLOGIC PAIN 04/23/2017 3889-28 / / [id number] Generator Ipg Battery 3058 - [id number] Implanted:Qty: 1 on 07/23/2013 at OR [facility] [employer] : NEUROLOGIC PAIN 11/21/2014 3058 / [id number] / Kit Implant Tined Lead - [id number] Implanted:Qty: 1 on 11/24/2019 by Hugo Minor MD at OR [facility] Back [employer] 09/24/2021 1801 / / [id number] Description:no charge documented as of this encounter Visit Diagnoses Diagnosis Medical home patient encounter- Primary Other specified examination Hospital discharge follow-up Other follow-up examination Generalized weakness Other malaise and fatigue UTI (urinary tract infection) Urinary tract infection, site not specified COPD exacerbation (HCC) Obstructive chronic bronchitis with exacerbation Hypoxia Hypoxemia Advanced care planning/counseling discussion Other specified counseling documented in this encounter Advance Directives Documents on File Type Date Recorded Patient Intensive Care Ambulance Paramedic Expl anation Power of Steel Spar Operator 06/15/2021 Viki [place] nder POWER OF NARROW GAUGE BRAKEMAN Latest Code Status on File Code Status [...] Agent Relationship Communication Javier Arteaga [facility] R epresentative (appointed verbally by patient or by statute hierarchy) [email or web address] Viki [facility] Care Repr esentative (appointed verbally by patient or by statute hierarchy) [email or web address] [facility] Repr esentative (appointed verbally by patient or by statute hierarchy) Care Teams Associate Loan Officer Relationship Specialty Start Date End Date Devi Luna, [address] [place] [address] PCP - General Internal Medicine 11/29/16 documented as of this encounter
--- OUTSIDE RECORDS SUMMARY | 2023-01-07 20:05 | External Medical Summary ---
Author Name Unknown Address Unknown Organization K01:[facility] [place] [address] [facility] [place] [address] Laboratory Report Ordering Provider Test Date Status BRITTANY ROJAS 12/04/2022 08:02:05 Final Observation Date Value Abnormality Reference (Units ) Status SYNC LEUKOCYTES IN BLOOD BY AUTOMATED COUNT 12/04/2022 08:02:05 8.22 4.00-10.80 (K/uL) Final Segs 12/04/2022 08:02:05 75.2 Above high normal 40.0-75.0 (%) Final Lymphs % 12/04/2022 08:02:05 13.6 Below low normal 18.0-42.0 (%) Final Monos 12/04/2022 08:02:05 7.4 1.0-11.0 (%) Final Eosinophils 12/04/2022 08:02:05 2.7 0.0-6.0 (%) Final Basos 12/04/2022 08:02:05 0.4 0.0-2.0 (%) Final Immature Granulocyte, Percent 12/04/2022 08:02:05 0.7 0.0-2.0 (%) Final Absolute Segs 12/04/2022 08:02:05 6.18 1.80-7.70 (K/uL) Final Lymphs, absolute 12/04/2022 08:02:05 1.12 1.00-4.80 (K/ul) Final Monos, Abs 12/04/2022 08:02:05 0.61 0.00-1.10 (K/uL) Final Eos, Abs 12/04/2022 08:02:05 0.22 0.00-0.70 (K/uL) Final Basos, Abs 12/04/2022 08:02:05 0.03 0.00-0.20 (K/uL) Final Immature Granulocytes, Number 12/04/2022 08:02:05 0.06 0.00-0.20 (K/uL) Final Performing Location [facility] [place] [id number]
--- OUTSIDE RECORDS SUMMARY | 2023-01-07 20:05 | External Medical Summary | Summary of Care ---
Author Name Unknown Organization [facility] Address [address] [place] [address] Phone [phone] Care Team Providers Care Ex Chef Name Role Phone LunaDevi masterson Primary Care Provider [phone] Reason for Visit * Reason Comments Re-Check Encounter Details Date Type Department Care Team Description 12/04/2022 Office Visit Family Medicine [address] [phone] Roxann Veloz PA-C [address] [place] [address] [place] [address] Generalized weakness*; Bacteremia; Chronic kidney disease, stage 3b (HCC) Allergies [...] 30 Tablet 11 11/05/2022 Active Nystatin-Triamcino lone 034847-8.1 UNIT/GM-% External Cream (Mycolog) Apply topically to [...] Sign Reading Time Taken Comments Blood Pressure 128/78 12/04/2022 7:33 AM EDT Pulse 68 12/04/2022 7:33 AM EDT Temperature 36.8 C (98.3 F) 12/04/2022 7:33 AM ED T Respiratory Rate 16 12/04/2022 7:33 AM EDT Oxygen Saturation - - Inhaled Oxygen Concentration - - Weight 72.1 kg (159 lb) 12/04/2022 7:33 AM EDT Height - - Body Mass Index 24.18 10/14/2022 11:20 AM EDT documented in this encounter Progress Notes * Roxann Veloz PA-C - 12/04/2022 7:38 AM EDT Images from the original note were not included. History of Present Illness Debra Rose is a 87 year old female that presents for Re-Check Nursing Notes: Rebeca Giles RN 12/04/22 0737 Sign at exiting of workspace 1 week check up, starting to feel better some days HPI: Debra Rose is a 87 year old female presenting to the office today for 1 week recheck. Blood culture outpatient was negative. CBC showed elevated WBC count with left shift. She was placed on Bactrim for concern of coag negative staph bacteremia while inpatient. She has been tolerating this well, and she is starting to feel better some days. She is getting around at home with her walker. PT/OT are coming into her home. Her cough has been much better as well. Substantially improved. Her notes that she seems much better already on abx. She was given 2 weeks of abx last week. Current Outpatient Medications Medication Instructions B-12 1000 MCG PO CAPS one pill each day donepezil (ARICEPT) 5 mg, Oral, Daily(AM), Take with largest meal of the day. Ferrous Sulfate (FEOSOL) 325 mg, Oral, 1 tab every other day folic acid 1 mg, Oral, Daily(AM) lamoTRIgine (LAMICTAL) 25 mg, Oral, Daily(AM) Loratadine 10 mg, Oral, Daily(AM) Multiple Vitamins-Minerals (HAIR SKIN AND NAILS FORMULA) TABS Oral Myrbetriq 50 mg, Oral, Daily(AM) Nystatin-Triamcinolone 796908-9.1 UNIT/GM-% External Cream (Mycolog) Topical, TID(AM/NOON/HS), Apply to vagina risperiDONE (RISPERDAL) 0.5 mg, Oral, BID (.AM/PM) sertraline (ZOLOFT) 75 mg, Oral, Daily(AM) Sulfamethoxazole-Trimethoprim 800-160 MG Oral Tablet (Bactrim DS) 1 Tablet, Oral, BID (.AM/PM), Until gone traMADol (ULTRAM) 50 mg, Oral, Q8H PRN VITAMIN D 1000 UNIT PO CAPS 1 capsule daily Med list reviewed by me today. Physical Exam Vitals: 12/04/22 0733 Temp: 36.8 C (98.3 F) Pulse: 68 Resp: 16 BP: 128/78 Physical exam: General: Well-Developed. Well appearing. No acute distress. HENT: Normocephalic. Atraumatic. Hearing normal. Cardiovascular: RRR. Normal S1/S2 noted. No murmur, rub or gallop appreciated. Pulmonary: No respiratory distress. No accessory muscle use. Diminished breath sounds in the lungs though overall clear. Faint wheeze in the RLL Musculoskeletal: In a wheelchair today. No edema or cyanosis. No calf tenderness. Neurologic: Alert. Oriented x 3. Appears stated age. CN 2-12 grossly intact. Skin: Warm and dry. No apparent rashes or ecchymoses. No jaundice or pallor noted. Psych: Mood and affect normal. I have reviewed the following results: Blood culture, CBC, and BMP Assessment and Plan Generalized weakness Bacteremia Continue Bactrim. Anticipate extending to 4 weeks total pending repeat labs. She is improving substantially on abx therapy. Chronic kidney disease, stage 3b (HCC) - CBC WITH WBC DIFFERENTIAL; Future - BASIC METABOLIC PANEL; Future Wrap-Up Check-out note: 2-3 week follow up with Denise or Dr. Luna if able documented in this encounter Nursing Notes * Rebeca Giles RN - 12/04/2022 7:33 AM EDT 1 week check up, starting to feel better some days documented in this encounter Plan of Treatment Upcoming Encounters Date Type Specialty Care Team Description 12/10/2022 Home Visit Family Medicine Palmira Gutiérrez, [address] [place] [address] 12/19/2022 Office Visit Family Denise Martinez, PA-C [address] [place] [address] [place] [address] 12/23/2022 Office Visit Gynecology Urology Shyla Coulter PA-C [address] [place] [address] Nurse Susanna Stevenson [address] [place] [address] 04/07/2023 Imaging Radiology 04/21/2023 Telemedicine Urology Nolberto Osorio MD [address] [place] [address] 7, Telemed [facility] Ex Rm [address] [place] [address] 05/26/2023 Laboratory Laboratory [address] [place] [address] 05/27/2023 Office Visit Family Medicine eDvi Luna[address] [place] [address] 06/02/2023 Office Visit [facility] [address] Pending Results Name Type Priority Associated Diagnoses Date /Time CBC WITH WBC DIFFERENTIAL Lab Routine Chronic kidney disease, stage 3b (HCC) 12/04/2022 8:02 AM EDT BASIC METABOLIC PANEL Lab Routine Chronic kidney disease, stage 3b (HCC) 12/04/2022 8:02 AM EDT Scheduled Orders Name Type Priority Associated Diagnoses Orde r Schedule CBC WITH WBC DIFFERENTIAL Lab Routine Chronic kidney disease, stage 3b (HCC) Expected: 12/04/2022 (Approximate), Expires: 12/05/2023 BASIC METABOLIC PANEL Lab Routine Chronic kidney disease, stage 3b (HCC) Expected: 12/04/2022 (Approximate), Expires: 12/04/2023 Health Maintenance Due Date Last Done Comments [...] Additional history exists CKD PHOS USE SMARTSET 57398 05/04/202304/24, 02/19/2021, 10/14/2019, Additional history exists Albumin/Creatinine Ratio 11/20/2023 023, 12/04/2021, 02/20/2021, Additional history exists CKD HGB USE SMARTSET 74011 11/28/202311/27, 11/27/2022, 11/15/2022, Additional history exists O2 [...] this encounter Medical Devices Implanted Type Area Plate Straightener Device Identifier Shelf Expiration Date Model / Serial / Lot Mesh Vicryl 6 X 6 Vkm-M - [id number] Implanted:Qty: 1 on 12/01/2006 [place] [facility] [place]: Pelvis DO NOT USE 08/25/2011 VKM-M / / [id number] Lead Tined Quad 3889-28 - [id number] Implanted:Qty: 1 on 06/29/2013 at [place] [facility] [place]/A: Back [employer] : NEUROLOGIC PAIN 04/23/2017 3889-28 / / [id number] Generator Ipg Battery 3058 - [id number] Implanted:Qty: 1 on 07/23/2013 at [place] [facility] [place] [employer] : NEUROLOGIC PAIN 11/21/2014 3058 / [id number] / Kit Implant Tined Lead - [id number] Implanted:Qty: 1 on 11/24/2019 by Hugo Minor MD at OR [facility] Back [employer] 09/24/2021 1801 / / [id number] Description:no charge documented as of this encounter Visit Diagnoses Diagnosis Generalized weakness- Primary Other malaise and fatigue Bacteremia Chronic kidney disease, stage 3b (HCC) documented in this encounter Advance Directives Documents on File Type Date Recorded Patient Neurophysiologist Expl anation Power of Baseball Inspector And Repairer 06/15/2021 Viki [place] nder POWER OF ENVIRONMENTAL HEALTH AND SAFETY INTERN Latest Code Status on File Code Status [...] Agent Relationship Communication Javier Rose [facility] Health Care R epresentative (appointed verbally by patient or by statute hierarchy) [email or web address] Viki Santamaria Adult Child Health Care Repr esentative (appointed verbally by patient or by statute hierarchy) [email or web address] [facility] Repr esentative (appointed verbally by patient or by statute hierarchy) Care Teams Ex Chef Relationship Specialty Start Date End Date Devi Luna[address] [place] [address] PCP - General Internal Medicine 11/29/16 documented as of this encounter
--- OUTSIDE RECORDS SUMMARY | 2023-01-07 20:05 | External Medical Summary | Summary of Care ---
Author Name Unknown Organization [facility] Address [address] [place] [address] Phone [phone] Care Team Providers Care Flower Pot Press Operator Name Role Phone LunaDevi masterson Primary Care Provider Reason for Visit * Reason Comments Re-Check Encounter Details Date Type Department Care Team Description 12/04/2022 Office Visit Family Medicine [address] [address] Roxann Soto PA-C [address] [place] [address] [place] [address] Generalized weakness*; Bacteremia; Chronic kidney disease, stage 3b (HCC); Chronic cough Allergies Active Allergy Reactions Severity Noted Date Comments Ceftriaxone Sodium hives Cisapride Propulsid--vomiting Cisapride 09/23/2017 Iodinated Contrast Media 09/23/2017 Renografin--itching/ feet only Penicillins hives Solifenacin Succinate Other (Please comment) 06/17/2008 Blurred vision at 10 mg dose documented as of this encounter (statuses as of 12/05/2022) Medications Medication Sig Dispensed Refills Start Date [...] 30 Tablet 11 11/05/2022 Active Nystatin-Triamci nolone 903375-9.1 UNIT/GM-% External Cream (Mycolog) Apply topically to affected area 3 times a day. Apply to vagina 30 g 0 11/15/2022 Active Doxycycline Hyclate 100 MG Oral CapsuleIndicatio ns:Generalized weakness,Bactere torin,Chronic cough Take 1 Capsule by mouth in the morning and 1 Capsule before bedtime. Do all this for 14 days. Until gone.. 28 Capsule 0 12/05/2022 12/19/2022 Active Sulfamethoxazole -Trimethoprim 800-160 MG Oral Tablet (Bactrim DS)Indications:B acteremia Take 1 Tablet by mouth in the morning and 1 Tablet before bedtime. Do all this for 14 days. Until gone. 28 Tablet 0 11/27/2022 12/05/2022 Discontinued (Medication/ Dose Changed) documented as of this encounter (statuses as of 12/05/2022) Active Problems Problem Noted Date Mitral valve [...] as of this encounter (statuses as of 12/05/2022) Resolved Problems Problem Noted Date Resolved Date [...] as of this encounter (statuses as of 12/05/2022) Immunizations Name Administration Dates Next Due Covid-19, [...] in this encounter Progress Notes * Roxann Soto PA-C - 12/04/2022 7:38 AM EDT Images [...] Oral Myrbetriq 50 mg, Oral, Daily(AM) Nystatin-Triamcinolone 542655-1.1 UNIT/GM-% External Cream (Mycolog) Topical, TID(AM/NOON/HS), Apply [...] better some days documented in this encounter Miscellaneous Notes * Addendum Note - Roxann Soto PA-C - 12/05/2022 12:55 PM EDTAddended by: ROXANN SOTO on: 12/05/2022 12:55 PM Modules accepted: Orders documented in this encounter Plan of Treatment Upcoming Encounters Date Type Specialty Care Team Description 12/10/2022 Home Visit Family Medicine Palmira Gutiérrez[address] [place] [address] 12/19/2022 Office Visit Family Medicine Denise Ley PA-C [address] [place] [address] [place] [address] 12/23/2022 Office Visit Gynecology Urology Shyla Coulter PA-C [address] [place] [address] Nurse Susanna Stevenson [address] [place] [address] 04/07/2023 Imaging Radiology 04/21/2023 Telemedicine Urology Nolberto Osorio MD [address] [place] [address] 7, [facility] [address] [place] [address] 05/26/2023 Laboratory Laboratory [address] [place] [address] 05/27/2023 Office Visit Family Medicine Devi Luna DO [address] [place] [address] [place] [address] 06/02/2023 Office Visit Hematology Oncology Marnie Rivera MD [address] [place] [address] Scheduled Orders Name Type Priority Associated Diagnoses Orde r Schedule BASIC METABOLIC PANEL Lab Routine Chronic kidney disease, stage 3b (HCC) Expected: 12/12/2022 (Approximate), Expires: 12/05/2023 Health Maintenance Due Date Last Done Comments [...] Additional history exists CKD PHOS USE SMARTSET 53946 05/04/202304/24, 02/19/2021, 10/14/2019, Additional history exists Albumin/Creatinine Ratio 11/20/2023 023, 12/04/2021, 02/20/2021, Additional history exists O2 ASSESSMENT COMPLETED IN PAST YEAR FOR COPD 11/28/2023 11/27/2022 CKD HGB USE SMARTSET 39667 12/05/202312/04, 12/04/2022, 11/27/2022, Additional history exists Pneumococcal [...] this encounter Medical Devices Implanted Type Area Lodge Officer Device Identifier Shelf Expiration Date Model / Serial / Lot Mesh Vicryl 6 X 6 Vkm-M - [id number] Implanted:Qty: 1 on 12/01/2006 [place] [facility] [place]A: Pelvis DO NOT USE 08/25/2011 VKM-M / / [id number] Lead Tined Quad 3889-28 - [id number] Implanted:Qty: 1 on 06/29/2013 at [place] [facility] [place]A: Back [employer] : NEUROLOGIC PAIN 04/23/2017 3889-28 / / [id number] Generator Ipg Battery 3058 - [id number] Implanted:Qty: 1 on 07/23/2013 [place] [facility] [place] [employer] : NEUROLOGIC PAIN 11/21/2014 3058 / [id number] / Kit Implant Tined Lead - [id number] Implanted:Qty: 1 on 11/24/2019 by Hugo Minor MD at OR [facility] Back [employer] 09/24/2021 1801 / / [id number] Description:no charge documented as of this encounter Results * (ABNORMAL) BASIC METABOLIC PANEL (12/04/2022 8:02 AM EDT) BUN 27(H) 6 - 20 mg/dL 12/04/2022 4:24 PM EDT LAB[facility] [place] Creatinine 1.4(H) 0.5 - 1.0 mg/dL 12/04/2022 4:24 PM EDT [facility] [place] Estimated Glomerular Filtration Rate 36(L) >=60 mL/min 12/04/2022 4:24 PM EDT [facility] Comment:eGFR is calculated b ased on the CKD-EPI 2020 equation Sodium 139 135 - 146 mmol/L 12/04/2022 4:24 PM EDT [facility] [place] Potassium 3.8 3.5 - 5.1 mmol/L 12/04/2022 4:24 PM EDT [facility] [place] Chloride 104 98 - 107 mmol/L 12/04/2022 4:24 PM EDT LABORATORY C CO2 23 22 - 32 mmol/L 12/04/2022 4:24 PM EDT [facility] Anion Gap 12 7 - 15 mmol/L 12/04/2022 4:24 PM EDT [facility] Glucose 111 70 - 120 mg/dL 12/04/2022 4:24 PM EDT [facility] Calcium 10.4(H) 8.4 - 10.2 mg/dL 12/04/2022 4:24 PM EDT [facility] Blood Venous blood specimen / Unknown Venipuncture / Unknown 12/04/2022 8:02 AM EDT 12/04/2022 8:02 AM EDT Roxann Soto PA-C LAB BLOOD ORDERABLE S [facility] [address] [place] [address] documented in this encounter Visit Diagnoses Diagnosis Generalized weakness- Primary Other malaise and fatigue Bacteremia Chronic kidney disease, stage 3b (HCC) Chronic cough Cough documented in this encounter Advance Directives Documents on File Type Date Recorded Patient Press Loader Expl anation Power of Artificial Flower Maker 06/15/2021 Viki [place] nder POWER OF NURSES SUPERINTENDENT Latest Code Status on File Code Status [...] Relationship Healthcare Agent Relationship Communication Javier Rose [facility] Care R epresentative (appointed verbally by patient or by statute hierarchy) [email or web address] Viki Santamaria Adult Child Health Care Repr esentative (appointed verbally by patient or by statute hierarchy) [email or web address] [facility] Repr esentative (appointed verbally by patient or by statute hierarchy) Care Teams Flower Pot Press Operator Relationship Specialty Start Date End Date Devi Luna[address] [place] [address] PCP - General Internal Medicine 11/29/16 documented as of this encounter
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
--- OUTSIDE RECORDS SUMMARY | 2023-01-07 20:06 | External Medical Summary | Summary of Care ---
Author Name Unknown Organization [facility] Address [address] [place] [address] Phone [phone] Care Team Providers Care Gas Or Petroleum Operator Name Role Phone Devi Luna DO Primary Care Provider Reason for Visit * Reason Onset Date Comments Hospital Follow-Up 11/25/2022 Encounter Details Date Type Department Care Team Description 11/25/2022 Telephone General Internal Medicine [facility] [address] [facility] [place] [address] Devi Luna DO [address] [place] [address] [place] [id number] Hospital Follow-Up Allergies Active Allergy Reactions Severity Noted Date Comments Ceftriaxone Sodium hives Cisapride Propulsid--vomiting Cisapride 09/23/2017 Iodinated Contrast Media 09/23/2017 Renografin--itching/ feet only Penicillins hives Solifenacin Succinate Other (Please comment) 06/17/2008 Blurred vision at 10 mg dose documented as of this encounter (statuses as of 11/26/2022) Medications Medication Sig Dispensed Refills Start Date [...] 30 Tablet 11 11/05/2022 Active Nystatin-Triamcinol one 466762-7.1 UNIT/GM-% External Cream (Mycolog) Apply topically to affected area 3 times a day. Apply to vagina 30 g 0 11/15/2022 Active documented as of this encounter (statuses as of 11/26/2022) Active Problems Problem Noted Date Mitral valve [...] as of this encounter (statuses as of 11/26/2022) Resolved Problems Problem Noted Date Resolved Date [...] as of this encounter (statuses as of 11/26/2022) Immunizations Name Administration Dates Next Due Covid-19, [...] encounter Miscellaneous Notes * Telephone Encounter - Devi Luna DO - 11/26/2022 8:51 AM EDT Ask- a-doc sent regarding the bacteremia. Will address psychiatry referral at appointment. * Telephone Encounter - Shawn Nieves RN - 11/25/2022 2:01 PM EDT Patient discharged from [facility] 11/24/22. Blood cultures resulted (11/19 and 11/20 draws) with Coag neg staph not lugdunensis. Hospitalist discussed w/[facility] ID - likely contaminant Repeat blood culture ordered - one of them again coag. negat. Staph. Per hospitalist, patient was asymptomatic and with ID's input, antibiotics were stopped. The microbiolog results were faxed to [phone]. The patient's daughter was asking about seeing outpatient psychiatry. Patient has follow up with Dr Luna 11/27. Thank you documented in this encounter Plan of Treatment Upcoming Encounters Date Type Specialty Care Team Description 11/27/2022 Office Visit Family Medicine Devi Luna[address] [place] [address] 12/23/2022 Office Visit Gynecology Urology Shyla Coulter PA-C [address] [place] [address] Nurse Susanna Stevenson [address] [place] [address] 04/07/2023 Imaging Radiology 04/21/2023 Office Visit Urology [facility]olberto [facility]sorio MD [address] [facility] [address] [place] [address] 05/26/2023 Laboratory Laboratory [address] [place] [address] 05/27/2023 Office Visit Family Medicine Devi Luna[address] [place] [address] 06/02/2023 Office Visit Hematology Oncology Marnie Rivera MD 200 [facility] [place] [address] Health Maintenance Due Date Last Done Comments [...] Additional history exists CKD PHOS USE SMARTSET 38259 05/04/202304/24, 02/19/2021, 10/14/2019, Additional history exists CKD HGB USE SMARTSET 84895 11/16/202311/15, 11/15/2022, 10/29/2022, Additional history exists O2 [...] this encounter Medical Devices Implanted Type Area Lap Checker Device Identifier Shelf Expiration Date Model / Serial / Lot Mesh Vicryl 6 X 6 Vk-M - [id number] Implanted:Qty: 1 on 12/01/2006 at [place] [facility] [place] N/A: Pelvis DO NOT USE 08/25/2011 VKM-M / / [id number] Lead Tined Quad 3889-28 - [id number] Implanted:Qty: 1 on 06/29/2013 at [place] [facility] [place] N/A: Back [employer] : NEUROLOGIC PAIN 04/23/2017 3889-28 / / [id number] Generator Ipg Battery 3058 - [id number] Implanted:Qty: 1 on 07/23/2013 at [facility] [employer] : NEUROLOGIC PAIN 11/21/2014 3058 / [id number] / Kit Implant Tined Lead - [id number] Implanted:Qty: 1 on 11/24/2019 by Hugo Minor MD at [place] [facility] Back [employer] 09/24/2021 1801 / / [id number] Description:no charge documented as of this encounter Advance Directives Documents on File Type Date Recorded Patient Linux Admin Engineer Expl anation Power of Whittling Room Operator 06/15/2021 POWER OF A TTORNEY Latest Code [...] Relationship Healthcare Agent Relationship Communication Javier Arteaga [facility] R epresentative (appointed verbally by patient or by statute hierarchy) [email or web address] Viki Santamaria [facility] Care Repr esentative (appointed verbally by patient or by statute hierarchy) [email or web address] Claude JpReplaced by [facility] Care Repr esentative (appointed verbally by patient or by statute hierarchy) Care Teams Gas Or Petroleum Operator Relationship Specialty Start Date End Date Devi Luna, [address] [place] [address] PCP - General Internal Medicine 11/29/16 documented as of this encounter
--- OUTSIDE RECORDS SUMMARY | 2023-01-07 20:06 | External Medical Summary | Summary of Care ---
Author Name Unknown Organization [facility] Address [address] [place] [address] Phone [phone] Care Team Providers Care Cardiology Tech Name Role Phone Devi Luna DO Primary Care Provider Reason for Visit * Reason Onset Date Comments Advice 11/26/2022 Encounter Details Date Type Department Care Team Description 11/26/2022 Telephone Family Medicine [address] [phone] Devi Luna DO [address] [place], [place] [address] [address] Advice Allergies Active Allergy Reactions Severity Noted Date [...] 30 Tablet 11 11/05/2022 Active Nystatin-Triamcinol one 374608-1.1 UNIT/GM-% External Cream (Mycolog) Apply topically to [...] Telephone Encounter - Rebeca Giles RN - 11/27/2022 11:18 AM EDT We will fax when received * Telephone Encounter - AYALA Harris - 11/26/2022 3:48 PM EDT Jewels from [facility] is calling requesting plan of care approval for home healthcare services for the patient. Best contact: [phone] documented in this encounter Plan of Treatment Upcoming Encounters Date Type Specialty Care Team Description 11/27/2022 Office Visit Family Medicine Devi Luna[address] [place] [address] 12/23/2022 Office Visit Gynecology Urology Shyla Coulter PA-C [address] [place] [address] Nurse Susanna Stevenson [address] [place] [address] 04/07/2023 Imaging Radiology 04/21/2023 Office Visit Urology Nolberto Osorio MD [address] [place] [address] 05/26/2023 Laboratory Laboratory [address] [place] [address] 05/27/2023 Office Visit Family Medicine Devi Luna[address] [place] [address] 06/02/2023 Office Visit Hematology Oncology Marnie Rivera MD [address] [facility] [place] [address] Health Maintenance Due Date Last Done Comments [...] Additional history exists CKD PHOS USE SMARTSET 01942 05/04/202304/24, 02/19/2021, 10/14/2019, Additional history exists CKD HGB USE SMARTSET 69382 11/16/202311/15, 11/15/2022, 10/29/2022, Additional history exists O2 [...] this encounter Medical Devices Implanted Type Area Security Representative Device Identifier Shelf Expiration Date Model / Serial / Lot Mesh Vicryl 6 X 6 Vkm-M - [id number] Implanted:Qty: 1 on 12/01/2006 at [place] [facility] [place] N/A: Pelvis DO NOT USE 08/25/2011 VKM-M / / [id number] Lead Tined Quad 3889-28 - [id number] Implanted:Qty: 1 on 06/29/2013 at [place] [facility] [place] N/A: Back [employer] : NEUROLOGIC PAIN 04/23/2017 3889-28 / / [id number] Generator Ipg Battery 3058 - [id number] Implanted:Qty: 1 on 07/23/2013 at [place] [facility] [place] [employer] : NEUROLOGIC PAIN 11/21/2014 3058 / [id number] / Kit Implant Tined Lead - [id number] Implanted:Qty: 1 on 11/24/2019 by Hugo Minor MD at [facility] Back [employer] 09/24/2021 1801 / / [id number] Description:no charge documented as of this encounter Advance Directives Documents on File Type Date Recorded Patient Technology Lead Expl anation Power of Milk Deliverer 06/15/2021 POWER OF A TTORNEY Latest Code [...] Relationship Healthcare Agent Relationship Communication Javier Arteaga [facility] R epresentative (appointed verbally by patient or by statute hierarchy) [email or web address] Viik [facility] Care Repr esentative (appointed verbally by patient or by statute hierarchy) [email or web address] Claude [facility] Repr esentative (appointed verbally by patient or by statute hierarchy) Care Teams Cardiology Tech Relationship Specialty Start Date End Date Devi Luna, [address] [place] [address] PCP - General Internal Medicine 11/29/16 documented as of this encounter
--- OUTSIDE RECORDS SUMMARY | 2023-01-07 20:06 | External Medical Summary ---
Author Name Unknown Address Unknown Organization [id number]:[facility] [place] [address] [id number] Laboratory Report Ordering Provider Test Date Status DILMA BREWER 11/27/2022 12:54:16 Final Observation Date Value Abnormality Reference (Units ) Status Bacteria identified in Specimen by Culture 11/27/2022 12:54:16 No growth Final Test: Culture, Blood
Sp ecimen Source: Blood, Venous
Specimen Type: Blood
Specimen Date: 11/27/2022 12:54 PM
Result Date: 12/02/2022 10:01 PM
Result Status: Final result
Resulting Lab: [facility]
[address]
[place] [address]

CULTURE

No growth

null Performing Location [facility] [place] [address] [facility] [address]
--- OUTSIDE RECORDS SUMMARY | 2023-01-07 20:06 | External Medical Summary ---
Author Name Unknown Address Unknown Organization K01:LABORATORY [place] [address] [place] [address] Laboratory Report Ordering Provider Test Date Status DILMA BREWER 11/27/2022 12:54:03 Final Observation Date Value Abnormality Reference (Units ) Status WBC, Total 11/27/2022 12:54:03 15.10 Above high normal 4.00-10.80 (K/uL) Final RBC 11/27/2022 12:54:03 3.43 3.85-5.15 (M/uL) Final Hemoglobin 11/27/2022 12:54:03 10.7 Below low normal 12.0-15.3 (g/dL) Final HCT 11/27/2022 12:54:03 35.3 Below low normal 36.0-45.2 (%) Final MCV 11/27/2022 12:54:03 102.9 81.5-97.5 (fL) Final MCH 11/27/2022 12:54:03 31.2 27.0-34.0 (pg) Final MCHC 11/27/2022 12:54:03 30.3 32.0-36.0 (g/dL) Final RDW 11/27/2022 12:54:03 16.5 11.5-15.5 (%) Final Platelets 11/27/2022 12:54:03 268 140-400 (K/uL) Final MPV 11/27/2022 12:54:03 10.1 6.6-11.1 (fL) Final Nucleated erythrocytes/100 leukocytes [Ratio] in Blood by Automated count 11/27/2022 12:54:03 0 <=0 (/100 WBCs) Final Performing Location LAB[facility]ATORY [facility] [place] - [address] [place] [address]
--- OUTSIDE RECORDS SUMMARY | 2023-01-07 20:06 | External Medical Summary ---
Author Name Unknown Address Unknown Organization K01[place] [place] [address] [place] [address] Laboratory Report Ordering Provider Test Date Status DILMA BREWER 11/27/2022 12:54:03 Final Observation Date Value Abnormality Reference (Units ) Status SYNC LEUKOCYTES IN BLOOD BY AUTOMATED COUNT 11/27/2022 12:54:03 15.10 Above high normal 4.00-10.80 (K/uL) Final Segs 11/27/2022 12:54:03 86.0 Above high normal 40.0-75.0 (%) Final Lymphs % 11/27/2022 12:54:03 7.0 Below low normal 18.0-42.0 (%) Final Monos 11/27/2022 12:54:03 4.1 1.0-11.0 (%) Final Eosinophils 11/27/2022 12:54:03 2.3 0.0-6.0 (%) Final Basos 11/27/2022 12:54:03 0.1 0.0-2.0 (%) Final Immature Granulocyte, Percent 11/27/2022 12:54:03 0.5 0.0-2.0 (%) Final Absolute Segs 11/27/2022 12:54:03 12.99 Above high normal 1.80-7.70 (K/uL) Final Lymphs, absolute 11/27/2022 12:54:03 1.05 1.00-4.80 (K/ul) Final Monos, Abs 11/27/2022 12:54:03 0.62 0.00-1.10 (K/uL) Final Eos, Abs 11/27/2022 12:54:03 0.35 0.00-0.70 (K/uL) Final Basos, Abs 11/27/2022 12:54:03 0.02 0.00-0.20 (K/uL) Final Immature Granulocytes, Number 11/27/2022 12:54:03 0.07 0.00-0.20 (K/uL) Final Performing Location [facility] [place] [facility] [address] [facility] [address]
--- OUTSIDE RECORDS SUMMARY | 2023-01-07 20:06 | External Medical Summary | Summary of Care ---
Author Name Unknown Organization [facility] Address [address] [place] [address] Phone [phone] Care Team Providers Care Inside Sales Trainer Name Role Phone Luna Devi Nichols Primary Care Provider Reason for Visit * Reason Comments Outpatient Testing Encounter Details Date Type Department Care Team Description 11/19/2022 Laboratory Laboratory [address] [place] [phone] , Specimen Drop Off [address] [place] [address] Dysuria; Chronic kidney disease, stage 3b (HCC) Allergies Active Allergy Reactions Severity Noted Date Comments Ceftriaxone Sodium hives Cisapride Propulsid--vomiting Cisapride 09/23/2017 Iodinated Contrast Media 09/23/2017 Renografin--itching/ feet only Penicillins hives Solifenacin Succinate Other (Please comment) 06/17/2008 Blurred vision at 10 mg dose documented as of this encounter (statuses as of 11/19/2022) Medications Medication Sig Dispensed Refills Start Date [...] 30 Tablet 11 11/05/2022 Active Nystatin-Triamcino lone 647835-4.1 UNIT/GM-% External Cream (Mycolog) Apply topically to affected area 3 times a day. Apply to vagina 30 g 0 11/15/2022 Active Nitrofurantoin Monohyd Macro 100 MG Oral Capsule (Macrobid) Take 1 Capsule by mouth in the morning and 1 Capsule before bedtime. Do all this for 7 days. With food until gone. 14 Capsule 0 11/15/2022 11/22/2022 Active documented as of this encounter (statuses as of 11/19/2022) Active Problems Problem Noted Date Mitral valve [...] as of this encounter (statuses as of 11/19/2022) Resolved Problems Problem Noted Date Resolved Date [...] as of this encounter (statuses as of 11/19/2022) Immunizations Name Administration Dates Next Due Covid-19, Mrna, Lnp-s, Pf, B ivalent, 50 Mcg, IM, 12 yrs and above (Moderna) 02/08/2022 Pneumococcal Conjugate Vacc, 13 Valent (Prevnar) 12/07/2014 Seasonal Influenza, PF, 6 mo ns & Above, IM , (Flulaval) 12/08/2017,11/29/2016 Seasonal Influenza, Quadriva lent Hd (Fluzone [...] Encounters Date Type Specialty Care Team Description 11/22/2022 Office Visit Gynecology Urology Shyla Coulter PA-C [address] [place] [address] Nurse Susanna Stevenson [address] [place] [address] 04/07/2023 Imaging Radiology 04/21/2023 Office Visit Urology Nolberto Osorio MD [address] [place] [address] 05/26/2023 Laboratory Laboratory [address] [place] [address] 05/27/2023 Office Visit Family Medicine Devi Luna, [address] [place] [address] 06/02/2023 Office Visit Hematology Oncology Marnie Rivera MD [address] [facility] [address] Pending Results Name Type Priority Associated Diagnoses Date /Time URINALYSIS, REFLEX TO MICROSCOPIC Lab Routine Dysuria 11/19/2022 2:47 PM EDT CULTURE, URINE, QUANTITATIVE Lab Routine Dysuria 11/19/2022 2:47 PM EDT ALBUMIN / CREATININE RATIO, URINE Lab Routine Chronic kidney disease, stage 3b (HCC) 11/19/2022 2:47 PM EDT Health Maintenance Due Date Last Done Comments Alpha-1 Antitrypsin 1953 DISCUSS TOBACCO CESSATION (REFER TO SMARTSET #3291) 05/22/2017 05/22/2016 DXA Scan 06/19/2019 06/18/2012, 04/26, 03/13/2005, Additional history exists Depression Screening 04/27/2022 04/27/2021 DTaP,Tdap,and Td Vaccines (2 - Td or Tdap) 10/14/2022 10/14/2012, 09/10/2007, 09/10/2007 Influenza Vaccine (FLU shot) (#1) 2022 01/21/2022, 10/27/2020, 12/17/2019, Additional history exists Albumin/Creatinine Ratio 12/04/2022 022, 02/20/2021, 10/08/2019, Additional history exists CKD PHOS USE SMARTSET 67598 05/04/202304/24, 02/19/2021, 10/14/2019, Additional history exists CKD HGB USE SMARTSET 57346 11/16/202311/15, 11/15/2022, 10/29/2022, Additional history exists O2 ASSESSMENT COMPLETED IN PAST YEAR FOR COPD 11/16/2023 11/15/2022 Pneumococcal Vaccine: 65+ Years Completed 12/07/2014, 01/09/2005 Zoster Vaccines Completed 12/24/2019, 09/25, 01/20/2012 COVID-19 Vaccine Completed 02/08/2022 GARDASIL-HPV IMMUNIZATION SERIES Aged Out No longer eligible based on patient's age to complete this topic Hepatitis B Aged Out No longer eligi ble based on patient's age to complete this topic MENINGOCOCCAL (MENACTRA/MENVEO) Aged Out No longer eligible based on patient's age to complete this topic documented as of this encounter Medical Devices Implanted Type Area Car Tracer Device Identifier Shelf Expiration Date Model / Serial / Lot Mesh Vicryl 6 X 6 Vkm-M - [id number] Implanted:Qty: 1 on 12/01/2006 at [place] [facility] [place]/A: Pelvis DO NOT USE 08/25/2011 VKM-M / / [id number] Lead Tined Quad 3889-28 - [id number] Implanted:Qty: 1 on 06/29/2013 at [place] [facility] [place] N/A: Back [employer] : NEUROLOGIC PAIN 04/23/2017 3889-28 / / [id number] Generator Ipg Battery 3058 - [id number] Implanted:Qty: 1 on 07/23/2013 at [place] [facility] [place] [employer] : NEUROLOGIC PAIN 11/21/2014 3058 / [id number] / Kit Implant Tined Lead - [id number] Implanted:Qty: 1 on 11/24/2019 by Huog Minor MD at OR [facility] Back [employer] 09/24/2021 1801 / / [id number] Description:no charge documented as of this encounter Visit Diagnoses Diagnosis Dysuria Chronic kidney disease, stage 3b (HCC) documented in this encounter Advance Directives Documents on File Type Date Recorded Patient Prototype Engineer Expl anation Power of Instructional Resource Teacher 06/15/2021 POWER OF A TTORNEY Latest Code [...] Relationship Healthcare Agent Relationship Communication Javier Arteaga [facility] R epresentative (appointed verbally by patient or by statute hierarchy) [email or web address] Viki [facility] Repr esentative (appointed verbally by patient or by statute hierarchy) [email or web address] [facility] Repr esentative (appointed verbally by patient or by statute hierarchy) Care Teams Inside Sales Trainer Relationship Specialty Start Date End Date Devi Luna, [address] [place] [address] PCP - General Internal Medicine 11/29/16 documented as of this encounter
--- OUTSIDE RECORDS SUMMARY | 2023-01-07 20:06 | External Medical Summary | Summary of Care ---
Author Name Unknown Organization [facility] Address [address] [place] [address] Phone [phone] Care Team Providers Care Credentials Specialist Name Role Phone LunaDevi masterson Primary Care Provider Reason for Visit * Reason Comments Outpatient Testing Encounter Details Date Type Department Care Team Description 11/27/2022 Laboratory Laboratory [address] [place] [phone] [place] [address] Bacteremia Allergies Active Allergy Reactions Severity Noted Date [...] 30 Tablet 11 11/05/2022 Active Nystatin-Triamcino lone 577490-4.1 UNIT/GM-% External Cream (Mycolog) Apply topically to [...] Encounters Date Type Specialty Care Team Description 12/23/2022 Office Visit Gynecology Urology Shyla Coulter PA-C [address] [place] [address] Nurse Susanna Stevenson [address] [place] [address] 04/07/2023 Imaging Radiology 04/21/2023 Office Visit Urology Nolberto Osorio MD [address] [place] [id number] 05/26/2023 Laboratory Laboratory [address] [place] [address] 05/27/2023 Office Visit Family Medicine Devi Luna, [address] [place] [address] 06/02/2023 Office Visit Hematology Oncology Marnie Rivera MD [address] [place] [address] Pending Results Name Type Priority Associated Diagnoses Date /Time CULTURE, BLOOD Lab Routine Bacteremia 11/27/2022 12:54 PM EDT CBC WITH WBC DIFFERENTIAL Lab Routine Bacteremia 11/27/2022 12:54 PM EDT COMPREHENSIVE METABOLIC PANEL Lab Routine Bacteremia 11/27/2022 12:54 PM EDT CBC Lab Routine Bacteremia 11/27/2022 12:54 PM EDT DIFFERENTIAL, AUTOMATED Lab Routine Bacteremia 11/27/2022 12:54 PM EDT CULTURE, BLOOD Lab Routine Bacteremia 11/27/2022 12:54 PM EDT Health Maintenance Due Date Last [...] Additional history exists CKD PHOS USE SMARTSET 82340 05/04/2023 03, 02/19/2021, 10/14/2019, Additional history exists CKD HGB USE SMARTSET 31551 11/16/202311/15, 11/15/2022, 10/29/2022, Additional history exists O2 [...] this encounter Medical Devices Implanted Type Area Director Product Safety Device Identifier Shelf Expiration Date Model / Serial / Lot Mesh Vicryl 6 X 6 Vkm-M - [id number] Implanted:Qty: 1 on 12/01/2006 [place] [facility] [place]A: Pelvis DO NOT USE 08/25/2011 VKM-M / / [id number] Lead Tined Quad 3889-28 - [id number] Implanted:Qty: 1 on 06/29/2013 at [place] [facility] [place] N/A: Back [employer] : NEUROLOGIC PAIN 04/23/2017 3889-28 / / [id number] Generator Ipg Battery 3058 - [id number] Implanted:Qty: 1 on 07/23/2013 at [place] [facility] [place] [employer] : NEUROLOGIC PAIN 11/21/2014 3058 / [id number] / Kit Implant Tined Lead - [id number] Implanted:Qty: 1 on 11/24/2019 by Hugo Minor MD at OR [facility] Back [employer] 09/24/2021 1801 / / [id number] Description:no charge documented as of this encounter Visit Diagnoses Diagnosis Bacteremia documented in this encounter Advance Directives Documents on File Type Date Recorded Patient Insurance And Benefits Clerk Expl anation Power of Air Route Traffic Controller 06/15/2021 POWER OF A TTORNEY Latest Code [...] Agent Relationship Communication Javier Arteaga [facility] R epresentative (appointed verbally by patient or by statute hierarchy) [email or web address] Viki Hina [facility] Care Repr esentative (appointed verbally by patient or by statute hierarchy) [email or web address] [facility] Repr esentative (appointed verbally by patient or by statute hierarchy) Care Teams Credentials Specialist Relationship Specialty Start Date End Date Devi Luna, [address] [place] [address] PCP - General Internal Medicine 11/29/16 documented as of this encounter
--- OUTSIDE RECORDS SUMMARY | 2023-01-07 20:06 | External Medical Summary | Summary of Care ---
Author Name Unknown Organization [facility] Address [address] [place] [address] Phone [phone] Care Team Providers Care Phys Asst Name Role Phone LunaDevi masterson Primary Care Provider Reason for Visit * Reason Comments Outpatient Testing Encounter Details Date Type Department Care Team Description 11/27/2022 Laboratory Laboratory [address] [place] [phone] [place] [address] Bacteremia Allergies Active Allergy Reactions Severity Noted [...] 30 Tablet 11 11/05/2022 Active Nystatin-Triamcino lone 119322-4.1 UNIT/GM-% External Cream (Mycolog) Apply topically to [...] Coulter PA-C [address] [place] [address] Nurse Susanna Stevenson [address] [place] [address] 04/07/2023 Imaging Radiology 04/21/2023 Office Visit Urology Nolberto Osorio MD [address] [place] [address] 05/26/2023 Laboratory Laboratory [address] [place] [address] 05/27/2023 Office Visit Family Medicine Devi Luna, [address] [place] [address] 06/02/2023 Office Visit Hematology Oncology Marnie Rivera MD [address] [facility] [address] Pending Results Name Type Priority Associated Diagnoses Date /Time CBC WITH WBC DIFFERENTIAL Lab Routine Bacteremia [...] Additional history exists CKD PHOS USE SMARTSET 57663 05/04/202304/243, 02/19/2021, 10/14/2019, Additional history exists CKD HGB USE SMARTSET 59479 11/16/202311/15, 11/15/2022, 10/29/2022, Additional history exists O2 [...] this encounter Medical Devices Implanted Type Area Sociology Instructor Device Identifier Shelf Expiration Date Model / Serial / Lot Mesh Vicryl 6 X 6 Vkm-M - [id number] Implanted:Qty: 1 on 12/01/2006 at OR [facility] [place] N/A: Pelvis DO NOT USE 08/25/2011 VKM-M / / [id number] Lead Tined Quad 3889-28 - [id number] Implanted:Qty: 1 on 06/29/2013 at OR [facility] [place] N/A: Back [employer] : NEUROLOGIC PAIN 04/23/2017 3889-28 / / [id number] Generator Ipg Battery 3058 - [id number] Implanted:Qty: 1 on 07/23/2013 at OR [facility] [place] [employer] : NEUROLOGIC PAIN 11/21/2014 3058 / [id number] / Kit Implant Tined Lead - [id number] Implanted:Qty: 1 on 11/24/2019 by Hugo Minor MD at OR [facility] Back [employer] 09/24/2021 1801 / / [id number] Description:no charge documented as of this encounter Visit Diagnoses Diagnosis Bacteremia documented in this encounter Advance Directives Documents on File Type Date Recorded Patient Finishing Inspector Expl anation Power of Stripping Machine Operator 06/15/2021 POWER OF A TTORNEY Latest [...] Javier Arteaga [facility] R epresentative (appointed verbally by patient or by statute hierarchy) [email or web address] Viki Santamaria [facility] Care Repr esentative (appointed verbally by patient or by statute hierarchy) [email or web address]@[email or web address] [facility] Repr esentative (appointed verbally by patient or by statute hierarchy) Care Teams Phys Asst Relationship Specialty Start Date End Date Devi Luna, [address] [place] [address] PCP - General Internal Medicine 11/29/16 documented as of this encounter
--- OUTSIDE RECORDS SUMMARY | 2023-01-07 20:06 | External Medical Summary ---
Author Name Unknown Address Unknown Organization K01[place] [place] [address] [facility] [place] [address] Laboratory Report Ordering Provider Test Date Status DILMA BREWER 11/27/2022 12:54:03 Final Observation Date Value Abnormality Reference (Units ) Status BUN 11/27/2022 12:54:03 27 Above high normal 6-20 (mg/dL) Final Creatinine 11/27/2022 12:54:03 1.0 0.5-1.0 (mg/dL) Final Glomerular filtration rate/1.73 sq M.predicted [Volume Rate/Area] in Serum, Plasma or Blood by Creatinine-based formula (CKD-EPI) 11/27/2022 12:54:03 56 Below low normal >=60 (mL/min) Final eGFR is calculated based on the CKD-EPI 2020 equation SODIUM 11/27/2022 12:54:03 142 135-146 (m mol/L) Final Potassium 11/27/2022 12:54:03 3.8 3.5-5.1 (m mol/L) Final Cl 11/27/2022 12:54:03 103 98-107 (mm ol/L) Final CO2 11/27/2022 12:54:03 28 22-32 (mmo l/L) Final Anion gap 11/27/2022 12:54:03 11 7-15 (mmol /L) Final Glucose 11/27/2022 12:54:03 151 Above high normal 70 -120 (mg/dL) Final Albumin 11/27/2022 12:54:03 3.7 Below low normal 3.8 -5.0 (g/dL) Final AST (Aspartate aminotransferase) 11/27/2022 12:54:03 13 10-35 (U/L) Fin al Alk Phos 11/27/2022 12:54:03 72 35-130 (U/ L) Final Bilirubin, Total 11/27/2022 12:54:03 0.3 <=1 .2 (mg/dL) Final Calcium 11/27/2022 12:54:03 10.6 Above high normal 8. 4-10.2 (mg/dL) Final Protein 11/27/2022 12:54:03 5.7 Below low normal 6.0 -8.3 (g/dL) Final ALT (Alanine aminotransferase) 11/27/2022 12:54:03 24 10-35 (U/L) Tee gomes Performing Location [facility] [place] [place] [address] [facility] [address]
--- OUTSIDE RECORDS SUMMARY | 2023-01-07 20:06 | External Medical Summary | Summary of Care ---
Author Name Unknown Organization [facility] Address [address] [place] [address] Phone [phone] Care Team Providers Care Drilling Rig Operator Name Role Phone LunaDevi masterson Primary Care Provider Reason for Visit * Reason Comments Outpatient Testing Encounter Details Date Type Department Care Team Description 11/27/2022 Laboratory Laboratory [address] [place] [id number] [place] [address] Bacteremia Allergies Active Allergy Reactions Severity Noted [...] 30 Tablet 11 11/05/2022 Active Nystatin-Triamcino lone 386803-4.1 UNIT/GM-% External Cream (Mycolog) Apply topically to [...] Office Visit Family Medicine Roxann Veloz PA-C [address] [place] [address] [place] [address] 12/23/2022 Office Visit Gynecology Urology Shyla Coulter PA-C [address] [place] [address] Nurse Susanna Stevenson [address] [place] [address] 04/07/2023 Imaging Radiology 04/21/2023 Office Visit Urology Nolberto Osorio MD [address] [place] [address] 05/26/2023 Laboratory Laboratory [address] [place] [address] 05/27/2023 Office Visit Family Medicine LunaDevi[address] [place] [address] 06/02/2023 Office Visit Hematology Oncology Marnie Rivera MD [address] [facility] [address] Pending Results Name Type Priority Associated Diagnoses [...] Additional history exists CKD PHOS USE SMARTSET 92032 05/04/202304/24, 02/19/2021, 10/14/2019, Additional history exists CKD HGB USE SMARTSET 76413 11/16/202311/15, 11/15/2022, 10/29/2022, Additional history exists O2 [...] this encounter Medical Devices Implanted Type Area Demurrage Man Device Identifier Shelf Expiration Date Model / Serial / Lot Mesh Vicryl 6 X 6 Vkm-M - [id number] Implanted:Qty: 1 on 12/01/2006 at [place] [facility] [place] N/A: Pelvis DO NOT USE 08/25/2011 VKM-M / / [id number] Lead Tined Quad 3889-28 - [id number] Implanted:Qty: 1 on 06/29/2013 at [place] [facility] [place] N/A: Back [employer] : NEUROLOGIC PAIN 04/23/2017 3889-28 / / [id number] Generator Ipg Battery 3058 - [id number] Implanted:Qty: 1 on 07/23/2013 at [place] [facility] [place] [employer] : NEUROLOGIC PAIN 11/21/2014 3058 / [id number] / Kit Implant Tined Lead - [id number] Implanted:Qty: 1 on 11/24/2019 by Hugo Minor MD at OR [facility] Back [employer] 09/24/2021 1801 / / [id number] Description:no charge documented as of this encounter Visit Diagnoses Diagnosis Bacteremia documented in this encounter Advance Directives Documents on File Type Date Recorded Patient Gas Line Installer Supervisor Expl anation Power of Computer Education Teacher 06/15/2021 POWER OF A TTORNEY Latest [...] 06/29/2013 4:19 PM 06/29/2013 9:59 PM This o rder reflects the patients wishes and were consensually agreed upon. Healthcare Agents on File Name Relationship Healthcare Agent Relationship Communication Javier Arteaga [facility] R epresentative (appointed verbally by patient or by statute hierarchy) [email or web address] Viki [facility] Care Repr esentative (appointed verbally by patient or by statute hierarchy) [email or web address] [facility] Repr esentative (appointed verbally by patient or by statute hierarchy) Care Teams Drilling Rig Operator Relationship Specialty Start Date End Date Devi Luna, [address] [place] [address] PCP - General Internal Medicine 11/29/16 documented as of this encounter
[2023-01-08 08:15] LABS: Basophils # (auto) 0.02 K/uL (0.00-0.20); Basophils % (auto) 0.4 %; Eosinophils # (auto) 0.26 K/uL (0.00-0.50); Eosinophils % (auto) 4.8 %; Hematocrit (blood only) 29.3 % (37.0-47.0); Hemoglobin 8.8 g/dl (12.0-16.0); Immature Granulocytes # (auto) 0.04 K/uL (0.01-0.20); Immature Granulocytes % (auto) 0.7 %; Lymphocytes # (auto) 1.16 K/uL (1.20-3.40); Lymphocytes % (auto) 21.6 %; Mean Corpuscular Hemoglobin 29.8 pg (25.0-34.0); Mean Corpuscular Volume 99.3 fL (80.0-100.0); Monocytes % (auto) 9.3 %; Neutrophils # (auto) 3.39 K/uL (1.40-6.50); Neutrophils % (auto) 63.2 %; Platelet Count 230 K/uL (130-400); RDW Coefficient of Variation 18.2 % (11.5-14.5); RDW Standard Deviation 66.4 fL (36.4-46.3); Red Blood Count 2.95 M/uL (4.20-5.40); White Blood Count 5.37 K/ul (4.8-10.8)
[2023-01-08] MEDS: FUROSEMIDE 20 MG TAB PO SCH (08:24)
[2023-01-08] MEDS: FOLIC ACID 1 MG TAB PO SCH (08:24)
[2023-01-08] MEDS: SERTRALINE HCL 50 MG TABLET PO SCH (08:24)
[2023-01-08] MEDS: lamoTRIgine 25 MG TAB PO SCH (08:24)
[2023-01-08] MEDS: SPIRONOLACTONE 12.5 MG TAB PO SCH (08:24)
[2023-01-08] MEDS: risperiDONE 0.5 MG TABLET PO SCH ×2 (08:24→20:32)
[2023-01-08] MEDS: VIBEGRON 75 MG TAB PO SCH (08:24)
[2023-01-08] MEDS: DONEPEZIL HCL 5 MG TAB PO SCH (08:24)
[2023-01-08] MEDS: DOXYCYCLINE HYCLATE 100 MG in DEXTROSE 5% MINI-B 100 ML IV SCH ×2 (08:25→20:31)
[2023-01-08] MEDS: ERTAPENEM SODIUM 1,000 MG in SYRINGE 0 ML IV SCH (08:26)
[2023-01-08 08:44] LABS: BUN Creatinine Ratio 28.9 (10-20); Calcium 10.3 mg/dl (8.6-10.3); Creatinine Clr Calc Pharmacy 46.2 ml/min; Est GFR (Non-African American) 63.9 ml/min; Magnesium 1.9 mg/dl (1.7-2.4); Phosphorus 3.1 mg/dl (2.5-4.9); Potassium 3.7 mmol/L (3.5-5.1)
[2023-01-08] MEDS: ENOXAPARIN INJ 40 MG/0.4 ML SYR SQ SCH (10:36)
--- NOTE | 2023-01-08 15:14 | Hospitalist Progress Note ---
Date of Service January 08, 2023 Assessment & Plan (1) (HFpEF) heart failure with preserved ejection fraction: (2) Elevated troponin: (3) Anemia: (4) Pulmonary edema: (5) Acute hypoxic respiratory failure: (6) CHF (congestive heart failure): Plan 87-year-old female with past medical Hx significant for COPD, allergic rhinitis, mucopurulent chronic bronchitis, peripheral vascular disease, mild pulmonary hypertension, hypertension, moderate mitral valve stenosis, nonrheumatic aortic valve insufficiency, B12 deficiency, slow transit constipation, esophageal dysmotility, GERD, urinary incontinence, CKD stage III, history of renal mass, moderate late-onset Alzheimer's dementia with agitation, iron deficiency anemia, bipolar 2 disorder, mild depression admitted with acute hypoxic respiratory failure. Stable for discharge, currently awaiting placement at an acute rehab facility. Respiratory distress Acute hypoxic respiratory failure On admission, ABG unremarkable Chest XRAY with cardiomegaly and pulmonary vascular congestion, possible infection Blood Cx x2 NGTD Suspect symptoms are from acute CHF, possible underlying pneumonia Received IV Lasix 20 mg in the ED Was on IV Lasix 40 mg twice daily, currently on IV Lasix 40mg daily Daily weights , I's and O's Followed cardiac enzymes (flattened) and obtained echo -Echo with EF 60 to 65%, grade 1 diastolic dysfunction, moderate mitral annular calcification, pulmonary HTN Empiric IV Invanz and Doxy for possible pneumonia started on admission, continue Started BiPAP in ED, has since been weaned down to room air Cardiology consult-appreciate recs -started on low dose spironolactone with IV Lasix Diarrhea Pt with episodes of fecal incontinence c diff negative PRN Imodium continue to monitor History of COPD ongoing tobacco abuse Continue home inhalers, nebs prn CKD stage III stable Hypokalemia replete and monitor History of left renal mass Mass 2.8 cm Under observation by urology Anemia Hemoglobin 10.7 on admission baseline seem 9-10 Under observation by heme-onc cont. to monitor Bipolar disorder history of depression History of late onset Alzheimer's dementia with agitation Continue home meds of donepezil, Lamictal, risperidone and Zoloft We will monitor for any delirium Urinary incontinence Continue Myrbetriq Diet: HH, easy to chew DVT prophylaxis: Lovenox CODE STATUS: no intubation but okay for CPR as per discussion with the family on admission Dispo: pending re-evaluation with PT for dispo given pt's decrease in function Admission and Anticipated Discharge Date Admission Date: January 04, 2023 Subjective Pt seen in the AM, PT at bedside Wanted to be discharged. Stated her episodes of diarrhea had resolved. Per CM referrals out to various SNFs Review of Systems Review of Systems: All systems reviewed & are unremarkable except as noted in Subjective Physical Exam Physical Exam: General: Alert. No acute distress Psych: Appropriate mood and affect Neuro: Some hearing loss, delayed speech HEENT: NC/AT CV: RRR Resp: Breath sounds clear bilaterally, no increased effort of breathing. No crackles/rhonchi/rales. Abdomen: Soft, nontender, nondistended. Extremities: edema in lower extremities bilaterally. Results & Data Results & Data Vital Signs (Past 12 Hours) Vital Signs Temp Pulse Pulse Resp BP Pulse Ox O2 Del Method 01/08/23 11:43 95 01/08/23 11:39 37.2 C 99 H 18 127/77 95 Room Air 01/08/23 07:56 36.8 C 86 18 121/75 90 Nasal Cannula 01/08/23 07:35 85 O2 Flow Rate 01/08/23 11:43 01/08/23 11:39 01/08/23 07:56 2 01/08/23 07:35 (1) (HFpEF) heart failure with preserved ejection fraction Heart failure chronicity: acute Qualified Code(s): I50.31 - Acute diastolic (congestive) heart failure (3) Anemia Anemia type: unspecified type Qualified Code(s): D64.9 - Anemia, unspecified (6) CHF (congestive heart failure) Heart failure chronicity: acute Heart failure type: diastolic Qualified Code(s): I50.31 - Acute diastolic (congestive) heart failure
[2023-01-09 07:31] LABS: Basophils # (auto) 0.02 K/uL (0.00-0.20); Basophils % (auto) 0.3 %; Eosinophils # (auto) 0.22 K/uL (0.00-0.50); Eosinophils % (auto) 3.1 %; Hematocrit (blood only) 27.4 % (37.0-47.0); Hemoglobin 8.4 g/dl (12.0-16.0); Immature Granulocytes # (auto) 0.07 K/uL (0.01-0.20); Lymphocytes # (auto) 1.36 K/uL (1.20-3.40); Lymphocytes % (auto) 19.2 %; Mean Corpuscular Hemoglobin 29.9 pg (25.0-34.0); Mean Corpuscular Hgb Conc 30.7 g/dL (32.0-36.0); Mean Corpuscular Volume 97.5 fL (80.0-100.0); Mean Platelet Volume 10.1 fL (9.4-12.4); Monocytes # (auto) 0.62 K/uL (0.11-0.59); Monocytes % (auto) 8.8 %; Neutrophils # (auto) 4.79 K/uL (1.40-6.50); Neutrophils % (auto) 67.6 %; Platelet Count 238 K/uL (130-400); RDW Coefficient of Variation 18.4 % (11.5-14.5); RDW Standard Deviation 65.4 fL (36.4-46.3); Red Blood Count 2.81 M/uL (4.20-5.40); White Blood Count 7.08 K/ul (4.8-10.8)
[2023-01-09 07:50] LABS: BUN Creatinine Ratio 29.1 (10-20); Calcium 10.2 mg/dl (8.6-10.3); Creatinine Clr Calc Pharmacy 49.3 ml/min; Est GFR (African American) 78.6 ml/min; Est GFR (Non-African American) 67.8 ml/min; Magnesium 1.9 mg/dl (1.7-2.4); Phosphorus 3.2 mg/dl (2.5-4.9); Potassium 3.8 mmol/L (3.5-5.1)
[2023-01-09] MEDS: FUROSEMIDE 20 MG TAB PO SCH (08:07)
[2023-01-09] MEDS: DOXYCYCLINE HYCLATE 100 MG in DEXTROSE 5% MINI-B 100 ML IV SCH ×2 (08:07→20:15)
[2023-01-09] MEDS: FOLIC ACID 1 MG TAB PO SCH (08:07)
[2023-01-09] MEDS: DONEPEZIL HCL 5 MG TAB PO SCH (08:07)
[2023-01-09] MEDS: lamoTRIgine 25 MG TAB PO SCH (08:08)
[2023-01-09] MEDS: VIBEGRON 75 MG TAB PO SCH (08:08)
[2023-01-09] MEDS: SERTRALINE HCL 50 MG TABLET PO SCH (08:08)
[2023-01-09] MEDS: SPIRONOLACTONE 12.5 MG TAB PO SCH (08:08)
[2023-01-09] MEDS: risperiDONE 0.5 MG TABLET PO SCH ×2 (08:08→20:15)
[2023-01-09] MEDS: ERTAPENEM SODIUM 1,000 MG in SYRINGE 0 ML IV SCH (09:26)
[2023-01-09] MEDS: ENOXAPARIN INJ 40 MG/0.4 ML SYR SQ SCH (09:27)
--- NOTE | 2023-01-09 12:09 | Hospitalist Progress Note ---
Date of Service January 09, 2023 Assessment & Plan (1) (HFpEF) heart failure with preserved ejection fraction: (2) Elevated troponin: (3) Anemia: (4) Pulmonary edema: (5) Acute hypoxic respiratory failure: (6) CHF (congestive heart failure): Plan 87-year-old female with past medical Hx significant for COPD, allergic rhinitis, mucopurulent chronic bronchitis, peripheral vascular disease, mild pulmonary hypertension, hypertension, moderate mitral valve stenosis, nonrheumatic aortic valve insufficiency, B12 deficiency, slow transit constipation, esophageal dysmotility, GERD, urinary incontinence, CKD stage III, history of renal mass, moderate late-onset Alzheimer's dementia with agitation, iron deficiency anemia, bipolar 2 disorder, mild depression admitted with acute hypoxic respiratory failure. Stable for discharge, currently awaiting placement at an acute rehab facility. Respiratory distress Acute hypoxic respiratory failure On admission, ABG unremarkable Chest XRAY with cardiomegaly and pulmonary vascular congestion, possible infection Blood Cx x2 NGTD Suspect symptoms are from acute CHF, possible underlying pneumonia Received IV Lasix 20 mg in the ED Was on IV Lasix 40 mg twice daily, currently on IV Lasix 40mg daily Daily weights , I's and O's Followed cardiac enzymes (flattened) and obtained echo -Echo with EF 60 to 65%, grade 1 diastolic dysfunction, moderate mitral annular calcification, pulmonary HTN Empiric IV Invanz and Doxy for possible pneumonia started on admission- on day 6 of treatment. Consider treatment for an additional 3 days. Pt with penicllin and cephalosporin allergy, consider a fluoroquinolone for discharge with the doxycycline. Started BiPAP in ED, has since been weaned down to room air Cardiology consult-appreciate recs -on low dose spironolactone with PO Lasix Diarrhea Pt with episodes of fecal incontinence c diff negative PRN Imodium continue to monitor History of COPD ongoing tobacco abuse Continue home inhalers, nebs prn CKD stage III stable Hypokalemia replete and monitor History of left renal mass Mass 2.8 cm Under observation by urology Anemia Hemoglobin 10.7 on admission baseline seem 9-10 Under observation by heme-onc cont. to monitor Bipolar disorder history of depression History of late onset Alzheimer's dementia with agitation Continue home meds of donepezil, Lamictal, risperidone and Zoloft We will monitor for any delirium Urinary incontinence Continue Myrbetriq Diet: HH, easy to chew DVT prophylaxis: Lovenox CODE STATUS: no intubation but okay for CPR as per discussion with the family on admission Dispo: pending re-evaluation with PT for dispo given pt's decrease in function Admission and Anticipated Discharge Date Admission Date: January 04, 2023 Subjective Pt seen in the AM, laying in bed resting Asking to go home. Otherwise denied acute concerns. Review of Systems Review of Systems: All systems reviewed & are unremarkable except as noted in Subjective Physical Exam Physical Exam: General: Alert. No acute distress Psych: Appropriate mood and affect Neuro: Some hearing loss, delayed speech HEENT: NC/AT CV: RRR Resp: Breath sounds clear bilaterally, no increased effort of breathing. No leaf fat scraper ckles/rhonchi/rales. Abdomen: Soft, nontender, nondistended. Extremities: edema in lower extremities bilaterally. Results & Data Results & Data Vital Signs (Past 12 Hours) Vital Signs Temp Pulse Pulse Resp BP BP Pulse Ox 01/09/23 11:22 36.9 C 92 H 21 128/75 95 01/09/23 07:24 91 H 01/09/23 07:23 37.0 C 80 21 144/80 H 97 01/09/23 02:46 36.6 C 91 H 22 126/76 94 O2 Del Method O2 Flow Rate 01/09/23 11:22 Nasal Cannula 2 01/09/23 07:24 01/09/23 07:23 Nasal Cannula 2 01/09/23 02:46 Nasal Cannula 2 (1) (HFpEF) heart failure with preserved ejection fraction Heart failure chronicity: acute Qualified Code(s): I50.31 - Acute diastolic (congestive) heart failure (3) Anemia Anemia type: unspecified type Qualified Code(s): D64.9 - Anemia, unspecified (6) CHF (congestive heart failure) Heart failure chronicity: acute Heart failure type: diastolic Qualified Code(s): I50.31 - Acute diastolic (congestive) heart failure
[2023-01-10 07:46] LABS: Basophils # (auto) 0.02 K/uL (0.00-0.20); Basophils % (auto) 0.3 %; Eosinophils # (auto) 0.16 K/uL (0.00-0.50); Eosinophils % (auto) 2.1 %; Hematocrit (blood only) 28.1 % (37.0-47.0); Hemoglobin 8.5 g/dl (12.0-16.0); Immature Granulocytes # (auto) 0.08 K/uL (0.01-0.20); Immature Granulocytes % (auto) 1.1 %; Lymphocytes # (auto) 1.34 K/uL (1.20-3.40); Lymphocytes % (auto) 17.8 %; Mean Corpuscular Hemoglobin 30.1 pg (25.0-34.0); Mean Corpuscular Hgb Conc 30.2 g/dL (32.0-36.0); Mean Corpuscular Volume 99.6 fL (80.0-100.0); Mean Platelet Volume 10.4 fL (9.4-12.4); Monocytes # (auto) 0.74 K/uL (0.11-0.59); Monocytes % (auto) 9.8 %; Neutrophils % (auto) 68.9 %; Platelet Count 229 K/uL (130-400); RDW Coefficient of Variation 18.1 % (11.5-14.5); RDW Standard Deviation 66.3 fL (36.4-46.3); Red Blood Count 2.82 M/uL (4.20-5.40); White Blood Count 7.54 K/ul (4.8-10.8)
[2023-01-10 08:06] LABS: BUN Creatinine Ratio 26.4 (10-20); Calcium 9.9 mg/dl (8.6-10.3); Creatinine Clr Calc Pharmacy 45.8 ml/min; Est GFR (African American) 69.9 ml/min; Est GFR (Non-African American) 60.3 ml/min; Magnesium 1.9 mg/dl (1.7-2.4); Phosphorus 3.1 mg/dl (2.5-4.9); Potassium 4.1 mmol/L (3.5-5.1)
[2023-01-10] MEDS: DOXYCYCLINE HYCLATE 100 MG in DEXTROSE 5% MINI-B 100 ML IV SCH ×3 (08:32→22:37)
[2023-01-10] MEDS: risperiDONE 0.5 MG TABLET PO SCH ×3 (08:35→22:40)
[2023-01-10] MEDS: SERTRALINE HCL 50 MG TABLET PO SCH (08:36)
[2023-01-10] MEDS: VIBEGRON 75 MG TAB PO SCH (08:36)
[2023-01-10] MEDS: FUROSEMIDE 20 MG TAB PO SCH (08:36)
[2023-01-10] MEDS: lamoTRIgine 25 MG TAB PO SCH (08:37)
[2023-01-10] MEDS: SPIRONOLACTONE 12.5 MG TAB PO SCH (08:37)
[2023-01-10] MEDS: FOLIC ACID 1 MG TAB PO SCH (08:37)
[2023-01-10] MEDS: DONEPEZIL HCL 5 MG TAB PO SCH (08:38)
[2023-01-10] MEDS: ERTAPENEM SODIUM 1,000 MG in SYRINGE 0 ML IV SCH (09:17)
[2023-01-10] MEDS: ENOXAPARIN INJ 40 MG/0.4 ML SYR SQ SCH (09:19)
--- NOTE | 2023-01-10 11:46 | Hospitalist Progress Note ---
Date of Service January 10, 2023 Assessment & Plan (1) (HFpEF) heart failure with preserved ejection fraction: (2) Elevated troponin: (3) Anemia: (4) Pulmonary edema: (5) Acute hypoxic respiratory failure: (6) CHF (congestive heart failure): Plan 87-year-old female with past medical Hx significant for COPD, allergic rhinitis, mucopurulent chronic bronchitis, peripheral vascular disease, mild pulmonary hypertension, hypertension, moderate mitral valve stenosis, nonrheumatic aortic valve insufficiency, B12 deficiency, slow transit constipation, esophageal dysmotility, GERD, urinary incontinence, CKD stage III, history of renal mass, moderate late-onset Alzheimer's dementia with agitation, iron deficiency anemia, bipolar 2 disorder, mild depression admitted with acute hypoxic respiratory failure. Stable for discharge, currently awaiting placement at an acute rehab facility. Respiratory distress Acute hypoxic respiratory failure On admission, ABG unremarkable Chest XRAY with cardiomegaly and pulmonary vascular congestion, possible infection Blood Cx x2 NGTD Suspect symptoms are from acute CHF, possible underlying pneumonia Received IV Lasix 20 mg in the ED Was on IV Lasix 40 mg twice daily, currently on IV Lasix 40mg daily Daily weights , I's and O's Followed cardiac enzymes (flattened) and obtained echo -Echo with EF 60 to 65%, grade 1 diastolic dysfunction, moderate mitral annular calcification, pulmonary HTN Empiric IV Invanz and Doxy for possible pneumonia started on admission- on day 7 of treatment. Consider treatment for an additional 3 days. Pt with penicllin and cephalosporin allergy, consider a fluoroquinolone for discharge with the doxycycline. Started BiPAP in ED, has since been weaned down to room air Cardiology consult-appreciate recs -on low dose spironolactone with PO Lasix Fever Noted temp of 38 overnight on 01/09 UA and c diff ordered Currently on abx as noted above for pulmonary infection, consider repeat chest xray, biofire Continue to monitor Hypercalcemia Noted on labs, ionized yeny of 1.4o on 01/10 Continue to monitor with AM labs, if continues to increase nephrology consult. Diarrhea Pt with episodes of fecal incontinence c diff negative PRN Imodium continue to monitor History of COPD ongoing tobacco abuse Continue home inhalers, nebs prn CKD stage III stable Hypokalemia replete and monitor History of left renal mass Mass 2.8 cm Under observation by urology Anemia Hemoglobin 10.7 on admission baseline seem 9-10 Under observation by heme-onc cont. to monitor Bipolar disorder history of depression History of late onset Alzheimer's dementia with agitation Continue home meds of donepezil, Lamictal, risperidone and Zoloft We will monitor for any delirium Urinary incontinence Continue Myrbetriq Diet: HH, easy to chew DVT prophylaxis: Lovenox CODE STATUS: no intubation but okay for CPR as per discussion with the family on admission Dispo: peer to peer completed for [facility] rehab, pt approved for SNF. Admission and Anticipated Discharge Date Admission Date: January 04, 2023 Subjective Pt seen in the AM, laying in bed resting. Asking to go home. noted fever overnight. Denied acute concerns otherwise. Peer to peer completed for acute rehab at [facility], pt approved for SNF only. Review of Systems Review of Systems: All systems reviewed & are unremarkable except as noted in Subjective Physical Exam Physical Exam: General: Alert. No acute distress Psych: Appropriate mood and affect Neuro: Some hearing loss, delayed speech HEENT: NC/AT CV: RRR Resp: Breath sounds clear bilaterally, no increased effort of breathing. No crackles/rhonchi/rales. Abdomen: Soft, nontender, nondistended. Extremities: edema in lower extremities bilaterally. Results & Data Results & Data Vital Signs (Past 12 Hours) Vital Signs Temp Pulse Resp BP Pulse Ox O2 Del Method O2 Flow Rate 01/10/23 08:22 Nasal Cannula 2 01/10/23 08:02 36.6 C 81 19 122/69 90 Room Air 01/10/23 03:12 37 C 79 19 125/73 97 Room Air (1) (HFpEF) heart failure with preserved ejection fraction Heart failure chronicity: acute Qualified Code(s): I50.31 - Acute diastolic (congestive) heart failure (3) Anemia Anemia type: unspecified type Qualified Code(s): D64.9 - Anemia, unspecified (6) CHF (congestive heart failure) Heart failure chronicity: acute Heart failure type: diastolic Qualified Code(s): I50.31 - Acute diastolic (congestive) heart failure
[2023-01-11 06:48] LABS: Anion Gap 5 (3-11); Carbon Dioxide 29 mmol/L (21-32); Chloride 105 mmol/L (98-107); Sodium 139 mmol/L (136-145)
[2023-01-11 06:53] LABS: BUN Creatinine Ratio 27.3 (10-20); Blood Urea Nitrogen 21 mg/dl (6-23); Creatinine Clr Calc Pharmacy 51.4 ml/min; Est GFR (Non-African American) 69.9 ml/min; Glucose 95 mg/dl (70-99(Fasting)); Phosphorus 3.2 mg/dl (2.5-4.9)
[2023-01-11 07:42] LABS: Basophils # (auto) 0.02 K/uL (0.00-0.20); Basophils % (auto) 0.3 %; Eosinophils # (auto) 0.25 K/uL (0.00-0.50); Eosinophils % (auto) 3.8 %; Hematocrit (blood only) 27.4 % (37.0-47.0); Hemoglobin 8.2 g/dl (12.0-16.0); Immature Granulocytes # (auto) 0.08 K/uL (0.01-0.20); Immature Granulocytes % (auto) 1.2 %; Lymphocytes # (auto) 1.45 K/uL (1.20-3.40); Mean Corpuscular Hemoglobin 29.3 pg (25.0-34.0); Mean Corpuscular Hgb Conc 29.9 g/dL (32.0-36.0); Mean Corpuscular Volume 97.9 fL (80.0-100.0); Mean Platelet Volume 10.8 fL (9.4-12.4); Monocytes # (auto) 0.58 K/uL (0.11-0.59); Monocytes % (auto) 8.8 %; Neutrophils # (auto) 4.21 K/uL (1.40-6.50); Neutrophils % (auto) 63.9 %; Platelet Count 225 K/uL (130-400); Platelet Estimate Normal (Normal); Polychromasia 1+; RDW Coefficient of Variation 18.5 % (11.5-14.5); RDW Standard Deviation 66.4 fL (36.4-46.3); Tear Drop Cells 1+; White Blood Count 6.59 K/ul (4.8-10.8)
[2023-01-11] MEDS: lamoTRIgine 25 MG TAB PO SCH (09:16)
[2023-01-11] MEDS: risperiDONE 0.5 MG TABLET PO SCH ×2 (09:16→21:00)
[2023-01-11] MEDS: SPIRONOLACTONE 12.5 MG TAB PO SCH (09:18)
[2023-01-11] MEDS: FUROSEMIDE 20 MG TAB PO SCH (09:19)
[2023-01-11] MEDS: DONEPEZIL HCL 5 MG TAB PO SCH (09:19)
[2023-01-11] MEDS: VIBEGRON 75 MG TAB PO SCH (09:19)
[2023-01-11] MEDS: SERTRALINE HCL 50 MG TABLET PO SCH (09:20)
[2023-01-11] MEDS: FOLIC ACID 1 MG TAB PO SCH (09:20)
[2023-01-11] MEDS: ENOXAPARIN INJ 40 MG/0.4 ML SYR SQ SCH (11:42)
--- NOTE | 2023-01-11 14:45 | Hospitalist Progress Note ---
Date of Service January 11, 2023 Assessment & Plan (1) (HFpEF) heart failure with preserved ejection fraction: (2) Elevated troponin: (3) Anemia: (4) Pulmonary edema: (5) Acute hypoxic respiratory failure: (6) CHF (congestive heart failure): Plan 87-year-old female with past medical Hx significant for COPD, allergic rhinitis, mucopurulent chronic bronchitis, peripheral vascular disease, mild pulmonary hypertension, hypertension, moderate mitral valve stenosis, nonrheumatic aortic valve insufficiency, B12 deficiency, slow transit constipation, esophageal dysmotility, GERD, urinary incontinence, CKD stage III, history of renal mass, moderate late-onset Alzheimer's dementia with agitation, iron deficiency anemia, bipolar 2 disorder, mild depression admitted with acute hypoxic respiratory failure. Stable for discharge, currently awaiting placement. Respiratory distress Acute hypoxic respiratory failure On admission, ABG unremarkable Chest XRAY with cardiomegaly and pulmonary vascular congestion, possible infe ction Blood Cx x2 NGTD Suspect symptoms are from acute CHF, possible underlying pneumonia Received IV Lasix 20 mg in the ED Was on IV Lasix 40 mg twice daily, currently on IV Lasix 40mg daily Daily weights , I's and O's Followed cardiac enzymes (flattened) and obtained echo -Echo with EF 60 to 65%, grade 1 diastolic dysfunction, moderate mitral annular calcification, pulmonary HTN Empiric IV Invanz and Doxy for possible pneumonia started on admission, completed treatment on 01/11. Started BiPAP in ED, has since been weaned down to NC 2L Cardiology consult-appreciate recs -on low dose spironolactone with PO Lasix Fever Noted temp of 38 overnight on 01/09 UA and c diff ordered Currently on abx as noted above for pulmonary infection, consider repeat chest xray, biofire Continue to monitor Hypercalcemia Noted on labs, ionized yeny of 1.4o on 01/10 Continue to monitor with AM labs, if continues to increase nephrology consult. Diarrhea Pt with episodes of fecal incontinence c diff negative PRN Imodium continue to monitor History of COPD ongoing tobacco abuse Continue home inhalers, nebs prn CKD stage III stable Hypokalemia replete and monitor History of left renal mass Mass 2.8 cm Under observation by urology Anemia Hemoglobin 10.7 on admission baseline seem 9-10 Under observation by heme-onc cont. to monitor Bipolar disorder history of depression History of late onset Alzheimer's dementia with agitation Continue home meds of donepezil, Lamictal, risperidone and Zoloft We will monitor for any delirium Urinary incontinence Continue Myrbetriq Diet: HH, easy to chew DVT prophylaxis: Lovenox CODE STATUS: no intubation but okay for CPR as per discussion with the family on admission Dispo: peer to peer completed for [facility] re[facility], acute rehab denied, pt approved for SNF. Admission and Anticipated Discharge Date Admission Date: January 04, 2023 Subjective Pt seen in the AM, sitting in the chair near her bed eating. Asking to go home, states she has to make pies for thanksgiving that no one else in the family can make. Denied acute concerns otherwise. Review of Systems Review of Systems: All systems reviewed & are unremarkable except as noted in Subjective Physical Exam Physical Exam: General: Alert. No acute distress Psych: Appropriate mood and affect Neuro: Some hearing loss, delayed speech HEENT: NC/AT CV: RRR Resp: Breath sounds clear bilaterally, no increased effort of breathing. Abdomen: Soft, nontender Extremities: edema in lower extremities bilaterally. Results & Data Results & Data Vital Signs (Past 12 Hours) Vital Signs Temp Pulse Resp BP Pulse Ox O2 Del Method O2 Flow Rate 01/11/23 11:14 37.2 C 81 17 103/63 94 Nasal Cannula 2.0 01/11/23 08:59 Nasal Cannula 2 01/11/23 07:57 37.1 C 85 18 125/74 95 Nasal Cannula 2.5 01/11/23 03:21 36.7 C 84 20 108/61 98 Nasal Cannula 2.5 (1) (HFpEF) heart failure with preserved ejection fraction Heart failure chronicity: acute Qualified Code(s): I50.31 - Acute diastolic (congestive) heart failure (3) Anemia Anemia type: unspecified type Qualified Code(s): D64.9 - Anemia, unspecified (6) CHF (congestive heart failure) Heart failure chronicity: acute Heart failure type: diastolic Qualified Code(s): I50.31 - Acute diastolic (congestive) heart failure
[2023-01-12 07:29] LABS: Basophils # (auto) 0.02 K/uL (0.00-0.20); Basophils % (auto) 0.3 %; Eosinophils # (auto) 0.14 K/uL (0.00-0.50); Eosinophils % (auto) 2.4 %; Hematocrit (blood only) 27.3 % (37.0-47.0); Hemoglobin 8.3 g/dl (12.0-16.0); Immature Granulocytes # (auto) 0.07 K/uL (0.01-0.20); Immature Granulocytes % (auto) 1.2 %; Lymphocytes # (auto) 1.36 K/uL (1.20-3.40); Lymphocytes % (auto) 23.5 %; Mean Corpuscular Hemoglobin 29.6 pg (25.0-34.0); Mean Corpuscular Hgb Conc 30.4 g/dL (32.0-36.0); Mean Corpuscular Volume 97.5 fL (80.0-100.0); Mean Platelet Volume 10.6 fL (9.4-12.4); Monocytes # (auto) 0.46 K/uL (0.11-0.59); Neutrophils # (auto) 3.73 K/uL (1.40-6.50); Neutrophils % (auto) 64.6 %; Platelet Count 240 K/uL (130-400); RDW Coefficient of Variation 18.6 % (11.5-14.5); RDW Standard Deviation 66.2 fL (36.4-46.3); White Blood Count 5.78 K/ul (4.8-10.8)
[2023-01-12 07:55] LABS: BUN Creatinine Ratio 26.9 (10-20); Calcium 9.7 mg/dl (8.6-10.3); Creatinine Clr Calc Pharmacy 50.7 ml/min; Est GFR (African American) 79.8 ml/min; Est GFR (Non-African American) 68.8 ml/min; Phosphorus 2.8 mg/dl (2.5-4.9); Potassium 3.6 mmol/L (3.5-5.1)
[2023-01-12] MEDS: SPIRONOLACTONE 12.5 MG TAB PO SCH (08:25)
[2023-01-12] MEDS: risperiDONE 0.5 MG TABLET PO SCH ×2 (08:25→20:06)
[2023-01-12] MEDS: SERTRALINE HCL 50 MG TABLET PO SCH (08:25)
[2023-01-12] MEDS: FUROSEMIDE 20 MG TAB PO SCH (08:25)
[2023-01-12] MEDS: VIBEGRON 75 MG TAB PO SCH (08:25)
[2023-01-12] MEDS: lamoTRIgine 25 MG TAB PO SCH (08:25)
[2023-01-12] MEDS: DONEPEZIL HCL 5 MG TAB PO SCH (08:25)
[2023-01-12] MEDS: FOLIC ACID 1 MG TAB PO SCH (08:25)
--- NOTE | 2023-01-12 09:24 | Hospitalist Progress Note ---
Date of Service January 12, 2023 Assessment & Plan (1) (HFpEF) heart failure with preserved ejection fraction: (2) Elevated troponin: (3) Anemia: (4) Pulmonary edema: (5) Acute hypoxic respiratory failure: (6) CHF (congestive heart failure): Plan 87-year-old female with past medical Hx significant for COPD, allergic rhinitis, mucopurulent chronic bronchitis, peripheral vascular disease, mild pulmonary hypertension, hypertension, moderate mitral valve stenosis, nonrheumatic aortic valve insufficiency, B12 deficiency, slow transit constipation, esophageal dysmotility, GERD, urinary incontinence, CKD stage III, history of renal mass, moderate late-onset Alzheimer's dementia with agitation, iron deficiency anemia, bipolar 2 disorder, mild depression admitted with acute hypoxic respiratory failure. Stable for discharge, currently awaiting placement. Respiratory distress Acute hypoxic respiratory failure On admission, ABG unremarkable Chest XRAY with cardiomegaly and pulmonary vascular congestion, possible infe ction Blood Cx x2 NGTD Suspect symptoms are from acute CHF, possible underlying pneumonia Received IV Lasix 20 mg in the ED Was on IV Lasix 40 mg twice daily, currently on IV Lasix 40mg daily Daily weights , I's and O's Followed cardiac enzymes (flattened) and obtained echo -Echo with EF 60 to 65%, grade 1 diastolic dysfunction, moderate mitral annular calcification, pulmonary HTN Empiric IV Invanz and Doxy for possible pneumonia started on admission, completed treatment on 01/11. Started BiPAP in ED, has since been weaned down to NC 2L Cardiology consult-appreciate recs -on low dose spironolactone with PO Lasix Fever Noted temp of 38 overnight on 01/09 Repeat UA pending c diff negative Continue to monitor Hypercalcemia Noted on labs, ionized yeny of 1.4 on 01/10 Continue to monitor with AM labs, if continues to increase nephrology consult. Diarrhea Pt with episodes of fecal incontinence c diff negative PRN Imodium continue to monitor History of COPD ongoing tobacco abuse Continue home inhalers, nebs prn CKD stage III stable Hypokalemia replete and monitor History of left renal mass Mass 2.8 cm Under observation by urology Anemia Hemoglobin 10.7 on admission baseline seem 9-10 Under observation by heme-onc cont. to monitor Bipolar disorder history of depression History of late onset Alzheimer's dementia with agitation Continue home meds of donepezil, Lamictal, risperidone and Zoloft We will monitor for any delirium Urinary incontinence Continue Myrbetriq Diet: HH, easy to chew DVT prophylaxis: Lovenox CODE STATUS: no intubation but okay for CPR as per discussion with the family on admission Dispo: peer to peer completed for [facility] re[facility], acute rehab denied, pt approved for SNF. Currently awaiting placement Admission and Anticipated Discharge Date Admission Date: January 04, 2023 Subjective Pt seen in the AM, sitting in the chair near her bed. Asking to go home. Denied acute concerns otherwise. Review of Systems Review of Systems: All systems reviewed & are unremarkable except as noted in Subjective Physical Exam Physical Exam: General: Alert. No acute distress Psych: Appropriate mood and affect Neuro: Some hearing loss, delayed speech HEENT: NC/AT CV: RRR Resp: Breath sounds clear bilaterally, no increased effort of breathing. Abdomen: Soft, nontender Extremities: edema in lower extremities bilaterally. Results & Data Results & Data Vital Signs (Past 12 Hours) Vital Signs Temp Pulse Pulse Resp BP BP Pulse Ox 01/12/23 07:48 37.2 C 93 H 17 102/65 91 01/12/23 03:07 37.0 C 80 17 94/60 L 92 01/12/23 00:00 82 01/11/23 23:55 36.7 C 78 17 113/65 92 O2 Del Method 01/12/23 07:48 Room Air 01/12/23 03:07 Room Air 01/12/23 00:00 01/11/23 23:55 Room Air (1) (HFpEF) heart failure with preserved ejection fraction Heart failure chronicity: acute Qualified Code(s): I50.31 - Acute diastolic (congestive) heart failure (3) Anemia Anemia type: unspecified type Qualified Code(s): D64.9 - Anemia, unspecified (6) CHF (congestive heart failure) Heart failure chronicity: acute Heart failure type: diastolic Qualified Code(s): I50.31 - Acute diastolic (congestive) heart failure
[2023-01-12] MEDS: ENOXAPARIN INJ 40 MG/0.4 ML SYR SQ SCH (10:34)
[2023-01-13 06:19] LABS: Basophils # (auto) 0.03 K/uL (0.00-0.20); Basophils % (auto) 0.4 %; Eosinophils # (auto) 0.15 K/uL (0.00-0.50); Eosinophils % (auto) 2.2 %; Hematocrit (blood only) 27.2 % (37.0-47.0); Hemoglobin 8.2 g/dl (12.0-16.0); Immature Granulocytes # (auto) 0.06 K/uL (0.01-0.20); Immature Granulocytes % (auto) 0.9 %; Lymphocytes # (auto) 1.42 K/uL (1.20-3.40); Lymphocytes % (auto) 21.3 %; Mean Corpuscular Hemoglobin 29.6 pg (25.0-34.0); Mean Corpuscular Hgb Conc 30.1 g/dL (32.0-36.0); Mean Corpuscular Volume 98.2 fL (80.0-100.0); Mean Platelet Volume 10.4 fL (9.4-12.4); Monocytes # (auto) 0.48 K/uL (0.11-0.59); Monocytes % (auto) 7.2 %; Neutrophils # (auto) 4.53 K/uL (1.40-6.50); Platelet Count 231 K/uL (130-400); RDW Coefficient of Variation 18.5 % (11.5-14.5); RDW Standard Deviation 65.5 fL (36.4-46.3); Red Blood Count 2.77 M/uL (4.20-5.40); White Blood Count 6.67 K/ul (4.8-10.8)
[2023-01-13 06:24] LABS: BUN Creatinine Ratio 22.3 (10-20); Calcium 9.6 mg/dl (8.6-10.3); Creatinine Clr Calc Pharmacy 41.5 ml/min; Est GFR (African American) 63.7 ml/min; Est GFR (Non-African American) 54.9 ml/min
[2023-01-13] MEDS: FUROSEMIDE 20 MG TAB PO SCH (08:26)
[2023-01-13] MEDS: DONEPEZIL HCL 5 MG TAB PO SCH (08:26)
[2023-01-13] MEDS: FOLIC ACID 1 MG TAB PO SCH (08:26)
[2023-01-13] MEDS: VIBEGRON 75 MG TAB PO SCH (08:27)
[2023-01-13] MEDS: risperiDONE 0.5 MG TABLET PO SCH (08:27)
[2023-01-13] MEDS: lamoTRIgine 25 MG TAB PO SCH (08:27)
[2023-01-13] MEDS: SPIRONOLACTONE 12.5 MG TAB PO SCH (08:27)
[2023-01-13] MEDS: SERTRALINE HCL 50 MG TABLET PO SCH (08:27)
[2023-01-13] MEDS: ENOXAPARIN INJ 40 MG/0.4 ML SYR SQ SCH (11:03)
--- NOTE | 2023-01-13 12:33 | Hospitalist Progress Note ---
Date of Service January 13, 2023 Assessment & Plan (1) (HFpEF) heart failure with preserved ejection fraction: Plan: 87-year-old female with past medical Hx significant for COPD, allergic rhinitis, mucopurulent chronic bronchitis, peripheral vascular disease, mild pulmonary hypertension, hypertension, moderate mitral valve stenosis, nonrheumatic aortic valve insufficiency, B12 deficiency, slow transit constipation, esophageal dysmotility, GERD, urinary incontinence, CKD stage III, history of renal mass, moderate late-onset Alzheimer's dementia with agitation, iron deficiency anemia, bipolar 2 disorder, mild depression admitted with acute hypoxic respiratory failure. Respiratory distress Acute hypoxic respiratory failure CXR possible CHF, Possible underlying pneumonia. Blood Cx x2 NGTD Received IV lasix. Daily weights , I's and O's Followed cardiac enzymes (flattened) and obtained echo Echo shows EF 60 to 65%, grade 1 diastolic dysfunction, moderate mitral annular calcification, pulmonary HTN received empiric IV Invanz and Doxy for possible pneumonia started on admission, completed treatment on 01/11. Started BiPAP in ED, has since been weaned down to NC 2L Seen by cardiology, appreciate recommendations. Currently on low dose spironolactone with PO Lasix Fever Noted temp of 38 overnight on 01/09 Repeat UA pending c diff negative Seems subsided Hypercalcemia Noted on labs, ionized yeny of 1.4 on 01/10 calcium is 9.6 today ionized calcium 1.37 today followup with repeat labs. followup with pcp. Diarrhea Pt with episodes of fecal incontinence c diff negative PRN Imodium continue to monitor History of COPD ongoing tobacco abuse Continue home inhalers, nebs prn stable CKD stage III stable Hypokalemia replete and monitor potassium 4.0 today History of left renal mass Mass 2.8 cm Under observation by urology Anemia Hemoglobin 10.7 on admission baseline seem 9-10 Under observation by heme-onc hb 8.2 to 8.8 most days cont. to monitor. Bipolar disorder history of depression History of late onset Alzheimer's dementia with agitation Continue home meds of donepezil, Lamictal, risperidone and Zoloft Urinary incontinence Continue Myrbetriq Diet: HH, easy to chew CODE STATUS: no intubation but okay for CPR as per discussion with the family on admission Dispo: peer to peer completed for [facility], acute rehab denied, pt approved for SNF. Currently awaiting placement. Discharge to SNF today. Admission and Anticipated Discharge Date Admission Date: January 04, 2023 Subjective Sitting on the chair comfortably eating dinner says she is doing fine and ready to go home. denies any pain no sob says ambulating little with walker afebrile Review of Systems Review of Systems: All systems reviewed & are unremarkable except as noted in HPI & below Physical Exam Physical Exam: General- Not in distress Head- atraumatic Neck- supple, no JVD. Lungs- clear to auscultation no wheezing or crackles Heart- regular rhythm; no murmur, no gallop. Abdomen- normal bowel sounds, soft, nontender, no distension Extremities-lower extremity edema present, no erythema seen. Neuro- alert, oriented no facial palsy; no dysarthria; moves extremities. Skin- warm & dry Results & Data Results & Data Vital Signs (Past 12 Hours) Vital Signs Temp Pulse Resp BP Pulse Ox O2 Del Method O2 Flow Rate 01/13/23 07:37 36.7 C 78 18 106/61 97 Nasal Cannula 2 01/13/23 07:10 Nasal Cannula 2 Diagnostic Findings Laboratory Results WBC 6.67 K/ul (4.8-10.8) 01/13/23 05:47 RBC 2.77 M/uL (4.20-5.40) L 01/13/23 05:47 Hgb 8.2 g/dl (12.0-16.0) L 01/13/23 05:47 POC Hgb 9.9 g/dl (12.0-16.0) L 01/04/23 05:40 Hct 27.2 % (37.0-47.0) L 01/13/23 05:47 POC Hct 29 % (37-47) L 01/04/23 05:40 MCV 98.2 fL (80.0-100.0) 01/13/23 05:47 MCH 29.6 pg (25.0-34.0) 01/13/23 05:47 MCHC 30.1 g/dL (32.0-36.0) L 01/13/23 05:47 RDW Std Deviation 65.5 fL (36.4-46.3) H 01/13/23 05:47 RDW Coeff of Ami 18.5 % (11.5-14.5) H 01/13/23 05:47 Plt Count 231 K/uL (130-400) 01/13/23 05:47 MPV 10.4 fL (9.4-12.4) 01/13/23 05:47 Immature Gran % (Auto) 0.9 % 01/13/23 05:47 Neut % (Auto) 68.0 % 01/13/23 05:47 Lymph % (Auto) 21.3 % 01/13/23 05:47 Tift % (Auto) 7.2 % 01/13/23 05:47 Eos % (Auto) 2.2 % 01/13/23 05:47 Baso % (Auto) 0.4 % 01/13/23 05:47 Neut # (Auto) 4.53 K/uL (1.40-6.50) 01/13/23 05:47 Lymph # (Auto) 1.42 K/uL (1.20-3.40) 01/13/23 05:47 Tift # (Auto) 0.48 K/uL (0.11-0.59) 01/13/23 05:47 Eos # (Auto) 0.15 K/uL (0.00-0.50) 01/13/23 05:47 Baso # (Auto) 0.03 K/uL (0.00-0.20) 01/13/23 05:47 Immature Gran # (Auto) 0.06 K/uL (0.01-0.20) 01/13/23 05:47 Platelet Estimate Normal (Normal) 01/11/23 05:47 Polychromasia 1+ 01/11/23 05:47 Tear Drop Cells 1+ 01/11/23 05:47 PT 10.9 Seconds (9.0-12.0) 01/04/23 04:44 INR 1.0 (0.9-1.1) 01/04/23 04:44 POC pH 7.37 (7.35-7.45) 01/04/23 05:40 POC pCO2 43 mmHg (35-46) 01/04/23 05:40 POC pO2 108 mmHg (80-95) H 01/04/23 05:40 POC HCO3 25 josefa/L (19-24) H 01/04/23 05:40 POC Total CO2 26 mmol/L (24-31) 01/04/23 05:40 POC Base Excess -1.0 josefa/L (-9-1.8) 01/04/23 05:40 POC ABG O2 Sat 98.0 % (90-95) H 01/04/23 05:40 POC Sodium 138 mmol/L (135-144) 01/04/23 05:40 Sodium 141 mmol/L (136-145) 01/13/23 05:47 POC Potassium 3.3 mmol/L (3.3-5.0) 01/04/23 05:40 Potassium 4.0 mmol/L (3.5-5.1) 01/13/23 05:47 POC Chloride 104 mmol/L (101-112) 01/04/23 04:54 Chloride 106 mmol/L (98-107) 01/13/23 05:47 Carbon Dioxide 31 mmol/L (21-32) 01/13/23 05:47 POC Total CO2 25 mmol/L (24-31) 01/04/23 04:54 Anion Gap 4 (3-11) 01/13/23 05:47 POC Anion Gap 14.0 mmol/L (16-25) L 01/04/23 04:54 POC BUN 16 mg/dl (7-18) 01/04/23 04:54 BUN 21 mg/dl (6-23) 01/13/23 05:47 Creatinine 0.94 mg/dl (0.6-1.2) 01/13/23 05:47 POC Creatinine 0.9 mg/dl (0.6-1.3) 01/04/23 04:54 Est Cr Clr Drug Dosing 41.5 ml/min 01/13/23 05:47 Est GFR ( Amer) 63.7 ml/min 01/13/23 05:47 Est GFR (Non-Af Amer) 54.9 ml/min 01/13/23 05:47 BUN/Creatinine Ratio 22.3 (10-20) H 01/13/23 05:47 Glucose 94 mg/dl (70-99(Fasting)) 01/13/23 05:47 POC Glucose (other) 152 mg/dl (70-99) H 01/04/23 04:54 Calcium 9.6 mg/dl (8.6-10.3) 01/13/23 05:47 POC Ioniz Calcium Kunal 1.26 mmol/l (1.12-1.32) 01/04/23 04:54 Ionized Calcium 1.37 mmol/L (1.12-1.32) H 01/13/23 05:47 Phosphorus 3.0 mg/dl (2.5-4.9) 01/13/23 05:47 Magnesium 2.0 mg/dl (1.7-2.4) 01/13/23 05:47 Total Bilirubin 0.4 mg/dl (0.2-1.0) 01/04/23 04:44 AST 13 U/L (13-39) 01/04/23 04:44 ALT 10 U/L (7-52) 01/04/23 04:44 Alkaline Phosphatase 94 U/L (34-104) 01/04/23 04:44 Troponin I High Sens 42.1 pg/ml (0-14) H 01/04/23 21:23 B-Natriuretic Peptide 317 pg/ml (0-100) H 01/04/23 04:44 Total Protein 6.7 gm/dl (6.0-8.3) 01/04/23 04:44 Albumin 3.5 gm/dl (3.4-5.0) 01/04/23 04:44 Globulin 3.2 gm/dl (2.5-4.0) 01/04/23 04:44 Albumin/Globulin Ratio 1.1 (0.9-2) 01/04/23 04:44 Lipase 5 U/L (11-82) L 01/04/23 04:44 Procalcitonin 0.15 ng/ml (0-0.5) 01/04/23 04:44 PTH Intact 42.7 pg/ml (12.0-88.0) 01/11/23 05:47 Stl C. diff Tox B Gene Negative Cdiff Gene (Neg) 01/11/23 06:30 Adenovirus (PCR) Not Detected (NotDetected) 01/04/23 04:45 B. pertussis DNA (PCR) Not Detected (NotDetected) 01/04/23 04:45 B.parapertussis DNA PCR Not Detected (NotDetected) 01/04/23 04:45 C. pneumoniae DNA (PCR) Not Detected (NotDetected) 01/04/23 04:45 Coronavirus OC43 (PCR) Not Detected (NotDetected) 01/04/23 04:45 Coronavirus HKU1 (PCR) Not Detected (NotDetected) 01/04/23 04:45 Coronavirus 229E (PCR) Not Detected (NotDetected) 01/04/23 04:45 SARS-CoV-2 (PCR) Not Detected (NotDetected) 01/04/23 04:45 Coronavirus NL63 (PCR) Not Detected (NotDetected) 01/04/23 04:45 Human Metapneumovir PCR Not Detected (NotDetected) 01/04/23 04:45 Influenza Type A (PCR) Not Detected (NotDetected) 01/04/23 04:45 Influenza Type B (PCR) Not Detected (NotDetected) 01/04/23 04:45 M. pneumoniae (PCR) Not Detected (NotDetected) 01/04/23 04:45 Parainfluenza 1 (PCR) Not Detected (NotDetected) 01/04/23 04:45 Parainfluenza 2 (PCR) Not Detected (NotDetected) 01/04/23 04:45 Parainfluenza 3 (PCR) Not Detected (NotDetected) 01/04/23 04:45 Parainfluenza 4 (PCR) Not Detected (NotDetected) 01/04/23 04:45 RSV (PCR) Not Detected (NotDetected) 01/04/23 04:45 Entero/Rhino (PCR) Not Detected (NotDetected) 01/04/23 04:45 Impressions Chest X-Ray 01/04/23 04:33 XR chest 1V portable CLINICAL HISTORY: Shortness of breath. COMPARISON STUDY: Chest CT April 17, 2021. Radiograph November 23, 2022. FINDINGS: There is no pneumothorax. Moderate cardiomegaly is unchanged. There is pulmonary vascular congestion. Mild bibasilar opacities are present. No definite pleural effusions are present. IMPRESSION: 1. Cardiomegaly with pulmonary vascular congestion. 2. Bibasilar opacities which likely reflect atelectasis. An infectious process could appear similar. ACT 112: Negative or not required by law. Electronically signed by: Heraclio Suarez M.D. 01/04/2023 6:[address] 01/04/23 05:28 CT OF THE CERVICAL SPINE WITHOUT CONTRAST CLINICAL HISTORY: trauma COMPARISON STUDY: Cervical spine CT March 07, 2020. TECHNIQUE: Helical axial images of the cervical spine were obtained without IV contrast. Sagittal and coronal reconstructions were viewed. Automated exposure control was utilized for the study. A dose lowering technique was utilized adhering to the principles of ALARA. FINDINGS: Alignment of the cervical spine is anatomic. Vertebral body heights are maintained. No acute cervical spine fracture or subluxation is present. There is no prevertebral edema. Facet joints are intact. Severe multilevel facet arthrosis is present. There is moderate multilevel degenerative disc disease. A focal defect within the right posterior arch of C1 is unchanged. The appearance of the cervical spine is unchanged. IMPRESSION: No acute cervical spine fracture or subluxation. ACT 112: Negative or not required by law. Electronically signed by: Heraclio Suarez M.D. 01/04/2023 6:[address] 01/04/23 05:28 CT OF THE HEAD WITHOUT CONTRAST CLINICAL HISTORY: trauma COMPARISON STUDY: Head CT November 19, 2022. TECHNIQUE: Helical axial images of the head were obtained without IV contrast. Automated exposure control was utilized for the study. A dose lowering technique was utilized adhering to the principles of ALARA. FINDINGS: No acute intracranial hemorrhage, midline shift or mass effect is present. The ventricular system is stable. White matter hypodensities are unchanged. 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 There has been no change in appearance of the brain. The basal cisterns are patent. No extra-axial collections are present. There are no findings to suggest acute dural sinus thrombosis or acute territorial infarct. No significant calvarial abnormalities are present. Visualized portions of the sinuses and mastoid air cells are clear. A 1 cm right parotid nodule is again noted. IMPRESSION: 1. No acute intracranial findings. No change in appearance of the brain. 2. No calvarial fracture. ACT 112: Negative or not required by law. Electronically signed by: Heraclio Suarez M.D. 01/04/2023 6:34 AM (1) (HFpEF) heart failure with preserved ejection fraction Heart failure chronicity: acute Qualified Code(s): I50.31 - Acute diastolic (congestive) heart failure
--- NOTE | 2023-01-13 12:42 | Discharge Summary ---
Date of Service January 13, 2023 Admission HPI Per Admitting Provider 87-year-old female with past medical significant for COPD, allergic rhinitis, mucopurulent chronic bronchitis, peripheral vascular disease, mild pulmonary hypertension, hypertension, moderate mitral valve stenosis, nonrheumatic aortic valve insufficiency, B12 deficiency, slow transit constipation, esophageal dysmotility, GERD, urinary incontinence, CKD stage III, history of renal mass, moderate late-onset Alzheimer's dementia with agitation, iron deficiency anemia, bipolar 2 disorder, mild depression, lives at home with her was brought in because of respiratory distress. She has chronic swelling in the legs but last few days the swelling has increased and she was prescribed hydrochlorothiazide yesterday. Apparently patient was doing okay. No complaint of shortness of breath or chest pain. No cough. No fevers. Normal bowel and bladder movements. Appetite is okay. And the middle of the night she woke up complaining of shortness of breath. She was sweating profusely. checked her oxygen sats and were in 60s and called EMS. For EMS also her oxygen sats were in 60s and she was placed on CPAP and brought to the hospital. Currently on BiPAP saturating okay. Chest x-ray showed pulmonary congestion. Received dose of Lasix IV 20 mg in the ER. Patient is alert and awake. Can tell her name. Can tell her date of . Knows that she is in the hospital. Think this November but could tell the year. Patient states she is feeling better. Denies any chest pain. No abdominal pain. Patient currently smokes 3 to 4 cigarettes daily Past medical history. As mentioned above. Past surgical history. Bilateral total knee arthroplasty. Carpal tunnel surgery. No current catheterization. Colonoscopy. EGD. Flexible sigmoidoscopy. Hemorrhoidectomy. Implantation of neurostimulator. Appendectomy, tonsillectomy, cataract surgery, repair of bladder and vaginal cystocele, repair of bladder defect, vaginal hysterectomy. Social history. . Smokes 3 to 4 cigarettes daily. No alcohol use. No drug use. Family history. Father had cancer. Heart disorder. Mother had cancer. Renal failure. Sister had breast cancer. Admission Exam Per Admitting Provider General- Currently not in distress Head- atraumatic Eyes- PERRL. Neck- supple, no JVD. Lungs- clear to auscultation bibasilar crackles heard. No wheezing heard. Heart- regular rhythm; no murmur, no gallop. Abdomen- normal bowel sounds, soft, nontender, no distension Extremities- b/l lower extremity +2 edema present. No erythema seen. Neuro- alert, oriented ; PERRL, ; no facial palsy; no dysarthria; Skin- warm & dry Principal Diagnosis Acute hypoxic respiratory failure HFpEF) heart failure with preserved ejection fraction Possible Pneumonia Discharge Data Allergies Allergy/AdvReac Type Severity Reaction Status Date / Time ceftriaxone Allergy Intermediate hives Verified 10/06/22 20:25 Iodinated Contrast Media Allergy Intermediate pruritus Verified 10/06/22 20:25 (feet) Penicillins Allergy Intermediate hives Verified 10/06/22 20:25 cisapride AdvReac Intermediate GI symptoms Verified 10/06/22 20:25 solifenacin AdvReac Intermediate blurred Verified 10/06/22 20:25 vision Consultations 01/04/23 08:02 Consult Cardiology Routine 01/04/23 09:36 Consult Cardiology Routine Ordered Studies 01/04/23 05:28 CT cervical spine wo con Stat CT head/brain wo con Stat Hospital Course (1) (HFpEF) heart failure with preserved ejection fraction: (1) (HFpEF) heart failure with preserved ejection fraction: Plan: 87-year-old female with past medical Hx significant for COPD, allergic rhinitis, mucopurulent chronic bronchitis, peripheral vascular disease, mild pulmonary hypertension, hypertension, moderate mitral valve stenosis, nonrheumatic aortic valve insufficiency, B12 deficiency, slow transit constipation, esophageal dysmotility, GERD, urinary incontinence, CKD stage III, history of renal mass, moderate late-onset Alzheimer's dementia with agitation, iron deficiency anemia, bipolar 2 disorder, mild depression admitted with acute hypoxic respiratory failure. Respiratory distress Acute hypoxic respiratory failure CXR possible CHF, Possible underlying pneumonia. Blood Cx x2 NGTD Received IV lasix. Daily weights , I's and O's Followed cardiac enzymes (flattened) and obtained echo Echo shows EF 60 to 65%, grade 1 diastolic dysfunction, moderate mitral annular calcification, pulmonary HTN received empiric IV Invanz and Doxy for possible pneumonia started on admission, completed treatment on 01/11. Started BiPAP in ED, has since been weaned down to NC 2L Seen by cardiology, appreciate recommendations. Currently on low dose spironolactone with PO Lasix Fever Noted temp of 38 overnight on 01/09 Repeat UA pending c diff negative Seems subsided Hypercalcemia Noted on labs, ionized yeny of 1.4 on 01/10 calcium is 9.6 today ionized calcium 1.37 today followup with repeat labs. followup with pcp. Diarrhea Pt with episodes of fecal incontinence c diff negative PRN Imodium continue to monitor History of COPD ongoing tobacco abuse Continue home inhalers, nebs prn stable CKD stage III stable Hypokalemia replete and monitor potassium 4.0 today History of left renal mass Mass 2.8 cm Under observation by urology Anemia Hemoglobin 10.7 on admission baseline seem 9-10 Under observation by heme-onc hb 8.2 to 8.8 most days cont. to monitor. Bipolar disorder history of depression History of late onset Alzheimer's dementia with agitation Continue home meds of donepezil, Lamictal, risperidone and Zoloft Urinary incontinence Continue Myrbetriq Diet: HH, easy to chew CODE STATUS: no intubation but okay for CPR as per discussion with the family on admission Dispo: peer to peer completed for [facility], acute rehab denied, pt approved for SNF. Currently awaiting placement. Discharge to SNF today. Total Time Total Time Spent Total Time Spent (In Minutes): 40minutes Discharge Plan Discharge Items Patient Disposition: Transfer Senior Living Fac Reason For Visit: RESP DISTRESS Discharge Diagnosis: Respiratory failure chf pneumonia Activity: Per Instructions section Non-emergency contact: Primary Care Provider Call non-emergency contact if: you have any medication questions and your symptoms worsen Follow-up/Referrals: Devi Luna DO [Primary Care Provider] - (Date & Time 01/14/2023 11:20 AM Provider Denise Ley PA-C Department Family [facility] ) Diet: Heart Healthy Diet Texture: Easy to Chew Addtl Attending Provider Instructions: followup with PCP in 5-7 days to check cbc and BMP and ionized calcium in 5-7 days Pending Studies at Discharge: No Stand-Alone Forms: My One [employer] Translation, Smoking Cessation Skilled Items Patient informed of condition?: Yes DNR: No Discharge Level of Care: Skilled Communicable Disease: No Discharge Prognosis: Stable Lines: None Urinary Catheter: No Medications and DC Order Prescriptions: New spironolactone 25 mg Tablet 12.5 mg PO DAILY Qty: 30 0RF furosemide 20 mg Tablet 20 mg PO QAM Qty: 30 1RF Continued donepezil 5 mg tablet 5 mg PO DAILY tramadol 50 mg tablet 50 mg PO TID PRN (Reason: Pain) lamotrigine 25 mg tablet 25 mg PO DAILY folic acid 1 mg tablet 1 mg PO DAILY sertraline 50 mg tablet 50 mg PO DAILY risperidone 0.5 mg tablet 0.5 mg PO BID Myrbetriq 50 mg tablet extended release 24 hr 50 mg PO DAILY Discontinued hydrochlorothiazide 12.5 mg capsule 12.5 mg PO DAILY Discharge Orders: Discharge Order (Routine); Ordered 01/13/23 Ordered By: Chidi Vasquez Admission Data Admit Date/Time: 01/04/23 07:16 Attending Provider: Chidi Vasquez Admit Provider: Chidi Vasquez Primary Care Provider: Devi Luna Other Providers: Ray Sroensen; Tan Hu [facility]; [facility]; [facility]
== END 2023-01-13 14:25 | DRG 291 ==
LOC: ED 04:31 → EDINP 07:16 → SUATTDRO 07:16 → 2S 10:27 → 3E 01-12 16:51

== ENCOUNTER 2023-01-21 15:02 | Inpatient (IN) ==
--- NOTE | 2023-01-21 15:15 | Emergency Department Note ---
History of Present Illness General Chief complaint: Fall Stated complaint: GROUND LEVEL FALL Time Seen by Provider: 01/21/23 15:03 History of Present Illness NAME: HUBERT RODRIGUEZ AGE: 87 SEX: F : 1935 ARRIVES VIA: Ambulance INFORMANT: EMS, Patient ED PROVIDER(S): JOSH Amaya, Kaleb Wallace MD The patient is an 87-year-old female who arrives to the emergency department after a ground-level fall today while she was ambulating into her home. The patient reports that she missed a step and fell backwards, she denies striking her head, she denies loss of consciousness, the patient is not on anticoagulants. She does report left shoulder pain, she arrives in a sling, she denies any numbness or tingling in her distal left arm. The patient is alert and oriented upon arrival. Home Medications Medication Instructions Recorded Confirmed Type donepezil 5 mg tablet 5 mg PO QAM 01/04/23 01/21/23 History folic acid 1 mg tablet 1 mg PO QAM 01/04/23 01/21/23 History lamotrigine 25 mg tablet 25 mg PO QAM 01/04/23 01/21/23 History mirabegron 50 mg tablet,extended 50 mg PO QAM 01/04/23 01/21/23 History release 24 hr (Myrbetriq) risperidone 0.5 mg tablet 0.5 mg PO BID 01/04/23 01/21/23 History sertraline 50 mg tablet 50 mg PO DAILY 01/04/23 01/21/23 History tramadol 50 mg tablet 50 mg PO TID PRN Pain 01/04/23 01/21/23 History furosemide 20 mg tablet 20 mg PO QAM #30 tabs 01/13/23 01/21/23 Rx spironolactone 25 mg tablet 12.5 mg (1/2 x 25 mg) PO DAILY #30 01/13/23 01/21/23 Rx tabs famotidine 20 mg tablet 20 mg PO DAILY 01/21/23 01/21/23 History nystatin-triamcinolone 100,000 1 applic topical TID 01/21/23 01/21/23 History unit/g-0.1 % topical cream triamterene 37.5 1 tab PO QAM 01/21/23 01/21/23 History mg-hydrochlorothiazide 25 mg tablet Allergies Allergy/AdvReac Type Severity Reaction Status Date / Time ceftriaxone Allergy Intermediate hives Verified 10/06/22 20:25 Iodinated Contrast Media Allergy Intermediate pruritus Verified 10/06/22 20:25 (feet) Penicillins Allergy Intermediate hives Verified 10/06/22 20:25 cisapride AdvReac Intermediate GI symptoms Verified 10/06/22 20:25 solifenacin AdvReac Intermediate blurred Verified 10/06/22 20:25 vision Past Med/Surg History Medical History COPD (chronic obstructive pulmonary disease) Ambulatory dysfunction OAB (overactive bladder) s/p nerve stimulator Bipolar disorder Osteoarthritis Degenerative disc disease Chronic back pain Depression GERD (gastroesophageal reflux disease) CKD (chronic kidney disease) stage 3, GFR 30-59 ml/min Hyperlipidemia Hypertension Surgical History History of arthroplasty of left knee H/O vaginal hysterectomy History of arthroplasty of right knee H/O bladder repair surgery "vaginal sling procedure for stress incontinence 11/2006 " History of carpal tunnel surgery "Right" History of appendectomy History of tonsillectomy and adenoidectomy Family History Father Family hx of colon cancer Brother Family history of diabetes mellitus Sister Family history of diabetes mellitus Social History Smoking Status: Former smoker Tobacco Type: Cigarettes Cigarettes Per Day: 7-9; Second Hand Exposure: No; Do You Dip or Chew Tobacco: No; Hx Alcohol Use: No Hx Substance Use: No Preferred Language: Urdu Communication Ability: Effective Centrifugal Operator Required: No Beliefs That Will Affect Care: None marital status: Current Living Situation: Spouse Feels Safe at Home: Yes Assistive Devices: Cane and Walker Physical Exam Vital Signs Vital Signs - 24 hr 01/21/23 15:09 01/21/23 17:01 Temperature 36.5 C Temperature Source Oral Pulse Rate 89 Pulse Rate [Right Finger] 89 Respiratory Rate 16 12 Blood Pressure 136/73 Blood Pressure [Right Arm] 136/73 Blood Pressure Mean 94 Blood Pressure Mean [Right Arm] 94 Pulse Oximetry 91 92 Oxygen Delivery Method Room Air Room Air Sepsis Recent Fever Within 48 Hours No Sepsis New/Unexplained Change in Mental Status N/A Sepsis Action Taken by Nursing No Action Required General: Awake, alert and oriented. No acute distress. Well developed, hydrated and nourished. Appears stated age. Skin: Skin in warm, dry and intact without rashes or lesions. Appropriate color for ethnicity. Nailbeds pink with no cyanosis or clubbing. Head: The head is normocephalic and atraumatic without tenderness, visible or palpable masses, depressions, or scarring. Hair is of normal texture and evenly distributed. Eyes: Conjunctivae are clear without exudates or hemorrhage. Sclera is non- icteric. EOM are intact, PERRLA. No signs of nystagmus. Eyelids are normal in appearance without swelling or lesions. Ears: The external ear and ear canal are non-tender and without swelling. The canal is clear without discharge. The tympanic membrane is normal in appearance with normal landmarks and cone of light. Hearing is intact with good acuity to whispered voice. Nose: Nasal mucosa is pink and moist. The nasal septum is midline. Nares are patent bilaterally. Throat: Oral mucosa is pink and moist with good dentition. Tongue normal in appearance without lesions and with good symmetrical movement. No buccal nodules or lesions are noted. The pharynx is normal in appearance without tonsillar swelling or exudates. Neck: The neck is supple without adenopathy. Trachea is midline. Thyroid gland is normal without masses. Carotid pulse 2+ bilaterally without bruit. No JVD. Cardiac: The external chest is normal in appearance without lifts, heaves, or thrills. PMI is not visible and is palpated in the 5th intercostal space at the midclavicular line. Heart rate and rhythm are normal. No murmurs, gallops, or rubs are auscultated. S1 and S2 are heard and are of normal intensity. Respiratory: The chest wall is symmetric and without deformity. No signs of trauma. Chest wall is non-tender. No signs of respiratory distress. Lung sounds are clear in all lobes bilaterally without rales, rhonchi, or wheezes. Abdominal: Abdomen is soft, symmetric, and non-tender without distention. There are no visible lesions or scars. The aorta is midline without bruit or visible pulsation. Umbilicus is midline without herniation. Bowel sounds are present and normoactive in all four quadrants. No masses, hepatomegaly, or splenomegaly are noted. Spine: Neck and back are without deformity, external skin changes, or signs of trauma. Curvature of the cervical, thoracic, and lumbar spine are within normal limits. Bony features of the shoulders and hips are of equal height bilaterally. No tenderness noted on palpation of the spinous processes. Spinous processes are midline. Cervical, thoracic, and lumbar paraspinal muscles are not tender and are without spasm. No discomfort is noted with flexion, extension, and [id number] rotation of the cervical spine, full range of motion is noted. Straight leg raise test is negative bilaterally. Sensation to the upper and lower extremities is normal bilaterally. No clonus is noted. Sausage Inspector strength is normal bilaterally. Dorsi/plantar flexion is normal bilaterally. Extremities: RUE and lower extremities are atraumatic in appearance without tenderness or deformity. LUE obvious deformity to proximal humerus, mild swelling without erythema. Muscle strength is 5/5 bilaterally. Tendon function is normal. Capillary refill is less than 3 seconds in all extremities. Pulses palpable. Neurological: The patient is awake, alert and oriented to person, place, and time with normal speech. Motor function is normal with muscle strength 5/5 bilaterally to upper and lower extremities. Sensation is intact bilaterally. Reflexes 2+ bilaterally. Cranial nerves are intact. Cerebellar function is intact. Memory is normal and thought process is intact. Psychiatric: Appropriate mood and affect. Good judgement and insight. No visual or auditory hallucinations. No suicidal or homicidal ideation. Course Administered Medications Acetaminophen (Acetaminophen 500 Mg Tab) 1,000 mg PO Q8H [facility] Stop: 02/20/23 20:59 Last Admin: 01/22/23 05:59 Dose: 1,000 mg Documented By: Admin: 01/21/23 20:49 Dose: 1,000 mg Documented By: MIGEL Donepezil HCl (Donepezil Hcl 5 Mg Tab) 5 mg PO QAM [facility] Stop: 02/21/23 08:59 Last Admin: 01/22/23 08:41 Dose: 5 mg Documented By: ZITA Famotidine (Famotidine 20 Mg Tab) 20 mg PO DAILY [facility] Stop: 02/21/23 08:59 Last Admin: 01/22/23 08:41 Dose: 20 mg Documented By: ZITA Folic Acid (Folic Acid 1 Mg Tab) 1 mg PO QAM [facility] Stop: 02/21/23 08:59 Last Admin: 01/22/23 08:41 Dose: 1 mg Documented By: ZITA Furosemide (Furosemide 20 Mg Tab) 20 mg PO QAM [facility] Stop: 02/21/23 08:59 Last Admin: 01/22/23 08:41 Dose: 20 mg Documented By: ZITA Guaifenesin (Guaifenesin 600 Mg Tabcr) 600 mg PO Q12H [facility] Stop: 02/20/23 17:59 Last Admin: 01/22/23 05:59 Dose: 600 mg Documented By: Admin: 01/21/23 18:23 Dose: 600 mg Documented By: BRANDY Lamotrigine (Lamotrigine 25 Mg Tab) 25 mg PO QAM [facility] Stop: 02/21/23 08:59 Last Admin: 01/22/23 08:41 Dose: 25 mg Documented By: ZITA Nystatin/Triamcinolone Acetonide (Nystatin/Triamcin Cr 15 Gm Tube) 1 appln EXT TID [facility] Stop: 02/20/23 20:59 Last Admin: 01/22/23 08:46 Dose: Not Given Documented By: Admin: 01/22/23 02:43 Dose: Not Given Documented By: HERIBERTO Risperidone (Risperidone 0.5 Mg Tablet) 0.5 mg PO BID [facility] Stop: 02/20/23 20:59 Last Admin: 01/22/23 08:41 Dose: 0.5 mg Documented By: Admin: 01/21/23 22:41 Dose: 0.5 mg Documented By: MIGEL Sertraline HCl (Sertraline Hcl 50 Mg Tablet) 50 mg PO DAILY [facility] Stop: 02/21/23 08:59 Last Admin: 01/22/23 08:41 Dose: 50 mg Documented By: ZITA Spironolactone (Spironolactone 12.5 Mg Tab) 12.5 mg PO DAILY [facility] Stop: 02/21/23 08:59 Last Admin: 01/22/23 08:41 Dose: 12.5 mg Documented By: ZITA Vibegron (Vibegron 75 Mg Tab) 75 mg PO DAILY [facility] Stop: 02/21/23 08:59 Last Admin: 01/22/23 08:40 Dose: 75 mg Documented By: ZITA Discontinued Medications Potassium Chloride (Potassium Chloride Crtab 20 Meq Tabcr) 40 meq PO NOW STA Stop: 01/21/23 20:05 Last Admin: 01/21/23 20:49 Dose: 40 meq Documented By: GGG Medical Decision Making Differential Diagnosis Fracture, subluxation, dislocation, contusion, ligamentous injury, neurovascular, compartment syndrome, rhabdomyolysis, as well as other pathologies. Medical Records Attestation: I reviewed the patient's medical records. Home Medications Current Medication List: was personally reviewed by me Laboratory Data Attestation: I reviewed the patient's lab results. Slight leukocytosis, stable hemoglobin and hematocrit, no electrolyte abnormalities. 01/21/23 18:43 01/21/23 18:43 Lab Results 01/21/23 Range/Units 18:43 WBC 10.98 H (4.8-10.8) K/ul RBC 3.06 L (4.20-5.40) M/uL Hgb 9.0 L (12.0-16.0) g/dl Hct 30.1 L (37.0-47.0) % MCV 98.4 (80.0-100.0) fL MCH 29.4 (25.0-34.0) pg MCHC 29.9 L (32.0-36.0) g/dL RDW Std Deviation 68.0 H (36.4-46.3) fL RDW Coeff of Ami 18.6 H (11.5-14.5) % Plt Count 280 (130-400) K/uL MPV 10.7 (9.4-12.4) fL Immature Gran % (Auto) 0.4 % Neut % (Auto) 85.2 % Lymph % (Auto) 6.4 % Gregg % (Auto) 7.7 % Eos % (Auto) 0.2 % Baso % (Auto) 0.1 % Neut # (Auto) 9.36 H (1.40-6.50) K/uL Lymph # (Auto) 0.70 L (1.20-3.40) K/uL Gregg # (Auto) 0.85 H (0.11-0.59) K/uL Eos # (Auto) 0.02 (0.00-0.50) K/uL Baso # (Auto) 0.01 (0.00-0.20) K/uL Immature Gran # (Auto) 0.04 (0.01-0.20) K/uL Sodium 140 (136-145) mmol/L Potassium 3.9 (3.5-5.1) mmol/L Chloride 105 (98-107) mmol/L Carbon Dioxide 27 (21-32) mmol/L Anion Gap 8 (3-11) BUN 18 (6-23) mg/dl Creatinine 0.83 (0.6-1.2) mg/dl Est Cr Clr Drug Dosing 55.6 ml/min Est GFR ( Amer) 74.0 ml/min Est GFR (Non-Af Amer) 63.9 ml/min BUN/Creatinine Ratio 21.7 H (10-20) Glucose 139 H (70-99(Fasting)) mg/dl Calcium 9.7 (8.6-10.3) mg/dl Phosphorus 3.6 (2.5-4.9) mg/dl Magnesium 2.2 (1.7-2.4) mg/dl Total Bilirubin 0.3 (0.2-1.0) mg/dl AST 13 (13-39) U/L ALT 11 (7-52) U/L Alkaline Phosphatase 82 (34-104) U/L B-Natriuretic Peptide 231 H (0-100) pg/ml Total Protein 6.2 (6.0-8.3) gm/dl Albumin 3.3 L (3.4-5.0) gm/dl Globulin 2.9 (2.5-4.0) gm/dl Albumin/Globulin Ratio 1.1 (0.9-2) Imaging Data Radiologist's Impression: Cervical Spine CT 01/21/23 15:15 CT cervical spine wo con CT DOSE: 1445.52 mGy.cm CLINICAL HISTORY: 87 years-old Female with fall. Acute neck pain status post fall COMPARISON: None. TECHNIQUE: Multiple axial CT images of the cervical spine were obtained without contrast. A dose lowering technique was utilized adhering to the principles of ALARA. FINDINGS: Demineralized appearance of the bones with moderate multilevel intervertebral disc space narrowing and facet arthrosis with moderate spurring. Mild levoscoliosis. Unchanged defect within the right posterior arch of C1. Atherosclerotic plaque of the carotid bulbs. The cervical soft tissues appear unremarkable. The visualized lung apices appear clear. IMPRESSION: No acute cervical spine fracture or subluxation. ACT 112: Negative or not required by law. The above report was generated using voice recognition software. It may contain grammatical, syntax or spelling errors. Electronically signed by: Jean-Pierre Suarez M.D. 01/21/2023 4:44 PM Chest X-Ray 01/21/23 15:15 SINGLE VIEW CHEST CLINICAL HISTORY: Fall. FINDINGS: An AP, portable, upright chest radiograph is compared to study dated 01/04/2023. Correlation is made with chest CT dated 04/17/2021. The examination is degraded by portable technique and patient rotation. The heart is enlarged note atherosclerotic calcification of the thoracic aorta. There is mild pulmonary vascular congestion. Chronic interstitial thickening is similar to previous. Dependent airspace opacities are seen at both lung bases. Question trace pleural effusions. No pneumothorax is seen. The skeletal structures are osteopenic. There is a displaced spiral fracture of the left humeral neck. IMPRESSION: 1. Displaced spiral fracture of the left humeral neck. 2. Cardiomegaly with pulmonary vascular congestion. 3. Suspect small pleural effusions. 4. Dependent airspace opacities likely represent atelectasis. Correlate clinically. ACT 112: Negative or not required by law. Electronically signed by: Gentry Young M.D. 01/21/2023 3:[address] 01/21/23 15:15 CT OF THE HEAD WITHOUT CONTRAST CLINICAL HISTORY: Fall. COMPARISON STUDY: Head CT January 04, 2023. TECHNIQUE: Helical axial images of the head were obtained without IV contrast. Automated exposure control was utilized for the study. A dose lowering technique was utilized adhering to the principles of ALARA. FINDINGS: No acute intracranial hemorrhage, midline shift or mass effect is present. The ventricular system is stable. White matter hypodensities are unchanged and favor small vessel disease. 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 There is an old infarct within the left basal ganglia which is also unchanged. The appearance of the brain is unchanged. There is no acute calvarial fracture. IMPRESSION: 1. No acute intracranial findings. No change in appearance of the brain. 2. No acute calvarial fracture. ACT 112: Negative or not required by law. Electronically signed by: Heraclio Suarez M.D. 01/21/2023 4:26 PM Shoulder X-Ray 01/21/23 15:15 XR shoulder LT min 2V routine CLINICAL HISTORY: Left shoulder pain following fall. COMPARISON: Chest radiograph January 04, 2023. FINDINGS: There is a comminuted acute moderately displaced fracture of the neck and proximal shaft of the left humerus. Fracture is displaced 1.6 cm. Alignment of the left acromioclavicular and glenohumeral joints is anatomic. Moderate degenerative changes within the left shoulder are present. IMPRESSION: Acute moderately displaced comminuted fracture of the neck and proximal shaft of the left humerus. ACT 112: Negative or not required by law. Electronically signed by: Heraclio Suarez M.D. 01/21/2023 3:39 PM Blood Pressure Blood Pressure Findings: Normal blood pressure Head Trauma GCS Score: 15 MDM Narrative This is an 87-year-old female who arrives to the emergency department for the above-stated complaint. Patient arrived via EMS from home after being discharged today from a residential facility. The patient is recently admitted for pneumonia earlier in the month, then discharged to residential facility for rehabilitation. Upon arriving home the was attempting to assist the patient into the home when the patient's foot caught a step and the patient fell backwards onto her left shoulder. The patient denies loss of consciousness, denies head strike, denies cervical sinal tenderness, denies use of anticoagulants. The patient is obvious deformity to the left proximal humerus. X-ray imaging shows an acute moderately displaced comminuted fracture of the neck and proximal shaft of the left humerus. CT imaging of the head and neck is negative for acute fracture or subluxation. EKG shows NSR at a rate of 90. XR of the chest shows no acute findings. Dr. Bradshaw was constulted from orthopedics and agreed the patient is unable to go home with her injury as she uses a walker to ambulate. The patient was admitted to [facility] for ambulatory dysfunction/L humerus fracture. Impression & Plan Ambulatory dysfunction, Left humeral fracture Discharge Plan Visit Data Chief Complaint: Fall Stated Complaint: GROUND LEVEL FALL ED Provider: Kaleb Wallace ED Midlevel Provider: Jyothi Chavez Discharge Problem: Ambulatory dysfunction, Left humeral fracture Patient Disposition: Admitted As Inpatient Discharge Instructions Interventions: ED Discharge Assessment Last Done: 01/21/23 20:29
--- NOTE | 2023-01-21 15:39 | XRay Report ---
SINGLE VIEW CHEST CLINICAL HISTORY: Fall. FINDINGS: An AP, portable, upright chest radiograph is compared to study dated 01/04/2023. Correlatio n is made with chest CT dated 04/17/2021. The examination is degraded by portable technique and patien t rotation. The heart is enlarged note atherosclerotic calcification of the thoracic aorta. There is mild pulmonary vascular congestion. Chronic interstitial thickening is similar to previous. Dependent airspace opacities are seen at both lung bases. Question trace pleural effusions. No pneumothorax is seen. The skeletal structures are osteopenic. There is a displaced spiral fracture of the left humer al neck. IMPRESSION: 1. Displaced spiral fracture of the left humeral neck. 2. Cardiomegaly with pulmonary vascular congestion. 3. Suspect small pleural effusions. 4. Dependent airspace opacities likely represent atelectasis. Correlate clinically. ACT 112: Negative or not required by law. Electronically signed by: Gentry Young M.D. 01/21/2023 3:38 PM
--- NOTE | 2023-01-21 15:40 | XRay Report ---
XR shoulder LT min 2V routine CLINICAL HISTORY: Left shoulder pain following fall. COMPARISON: Chest radiograph January 04, 2023. FINDINGS: There is a comminuted acute moderately displaced fracture of the neck and proximal shaft o f the left humerus. Fracture is displaced 1.6 cm. Alignment of the left acromioclavicular and glenohu meral joints is anatomic. Moderate degenerative changes within the left shoulder are present. IMPRESSION: Acute moderately displaced comminuted fracture of the neck and proximal shaft of the left humerus. ACT 112: Negative or not required by law. Electronically signed by: Heraclio Suarez M.D. 01/21/2023 3:39 PM
--- NOTE | 2023-01-21 16:27 | CT Scan Report ---
CT OF THE HEAD WITHOUT CONTRAST CLINICAL HISTORY: Fall. COMPARISON STUDY: Head CT January 04, 2023. TECHNIQUE: Helical axial images of the head were obtained without IV contrast. Automated exposure con trol was utilized for the study. A dose lowering technique was utilized adhering to the principles o f ALARA. FINDINGS: No acute intracranial hemorrhage, midline shift or mass effect is present. The ventricular system is stable. White matter hypodensities are unchanged and favor small vessel disease. Several ol d infarcts within the cerebellar hemispheres are unchanged. There is an old infarct within the left b rosalinda ganglia which is also unchanged. The appearance of the brain is unchanged. There is no acute yeny varial fracture. IMPRESSION: 1. No acute intracranial findings. No change in appearance of the brain. 2. No acute calvarial fracture. ACT 112: Negative or not required by law. Electronically signed by: Heraclio Suarez M.D. 01/21/2023 4:26 PM
--- NOTE | 2023-01-21 16:30 | Electrocardiogram Report ---
Test Reason : Blood Pressure : / mmHG Vent. Rate : 090 BPM Atrial Rate : 090 BPM P-R Int : 196 ms QRS Dur : 080 ms QT Int : 366 ms P-R-T Axes : 071 007 060 degrees QTc Int : 447 ms Normal sinus rhythm Low voltage QRS Possible Inferior infarct (cited on or before 30-APR-2015) Abnormal ECG Confirmed by Rodolfo Norton ([id number]) on 01/21/2023 4:29:36 PM Referred By: Confirmed By:Wilfred Norton
--- NOTE | 2023-01-21 16:45 | CT Scan Report ---
CT cervical spine wo con CT DOSE: 1445.52 mGy.cm CLINICAL HISTORY: 87 years-old Female with fall. Acute neck pain status post fall COMPARISON: None. TECHNIQUE: Multiple axial CT images of the cervical spine were obtained without contrast. A dose low ering technique was utilized adhering to the principles of ALARA. FINDINGS: Demineralized appearance of the bones with moderate multilevel intervertebral disc space narrowing an d facet arthrosis with moderate spurring. Mild levoscoliosis. Unchanged defect within the right poste rior arch of C1. Atherosclerotic plaque of the carotid bulbs. The cervical soft tissues appear unrema rkable. The visualized lung apices appear clear. IMPRESSION: No acute cervical spine fracture or subluxation. ACT 112: Negative or not required by law. The above report was generated using voice recognition software. It may contain grammatical, syntax o r spelling errors. Electronically signed by: Jean-Pierre Suarez M.D. 01/21/2023 4:44 PM
--- NOTE | 2023-01-21 17:05 | History & Physical Report ---
Date of Service January 21, 2023 Assessment & Plan (1) Left humeral fracture: (2) Ambulatory dysfunction: (3) (HFpEF) heart failure with preserved ejection fraction: (4) Hypertension: (5) Hyperlipidemia: (6) COPD (chronic obstructive pulmonary disease): (7) CKD (chronic kidney disease) stage 3, GFR 30-59 ml/min: (8) Bipolar disorder: (9) Renal mass, left: (10) Depression: Plan This is an 87yo F with a PMH of COPD, peripheral vascular disease, hypertension, HFpEF, esophageal dysmotility, CKD 3, Alzheimer's dementia, bipolar 2 disorder, depression, tobacco use and other medical problems listed below presents after mechanical fall at home today and found to have an acute moderately displaced comminuted fracture of the neck and proximal shaft of the left humerus. Mechanical fall Acute displaced L humerus fracture Missed a step while ambulating with walker earlier today and fell onto left side Head CT without acute intracranial findings, cervical spine CT without cervical fracture or subluxation Left shoulder XR with acute moderately displaced comminuted fracture of the neck and proximal shaft of the left humerus Evaluated in ED by Dr. Bradshaw, who placed LUE in a sling and swath. Would likely benefit from surgical mgmt if medically appropriate given complex comorbidities Keep the head of the bed elevated is much as possible, pain control, NPO @ [place] HFpEF CXR today with cardiomegaly with pulmonary vascular congestion. Suspect small pleural effusions Admitted a few weeks ago for resp failure in setting of CHF and possible PNA 2D echo from Jan 04, 2023 shows EF 60-65%, grade 1 diastolic dysfunction, moderate mitral annular calcification, pulmonary HTN Was optimized by cardiology during previous admission and discharged on 12.5 mg spironolactone and 20mg Lasix States BLE edema is close to baseline, denies any CP, palpitations or SOB. Currently saturating on room air at 92% Routine cards consult for possible pre-op clearance given medically complex and recent admission for CHF Repeat CXR in AM, continue home diuretics for now History of COPD Ongoing tobacco abuse Continue home inhalers, Duonebs QID PRN SOB or wheezing Adding guaifenesin, flutter valve Smoking cessation CKD stage III Cr at baseline ~0.8. Continue monitoring with daily BMP History of left renal mass Mass 2.8 cm. Under observation by urology Anemia Hgb 9 (improved from previous). Monitor with daily CBC Bipolar disorder history of depression History of late onset Alzheimer's dementia with agitation Continue home meds of donepezil, Lamictal, risperidone and Zoloft Urinary incontinence Continue Myrbetriq DVT Ppx: SCDs for now Code status: no intubation but okay for CPR as per discussion with the family PCP: Cheryl Dispo: Admitting to med tele Daughter Rody updated over the phone (she and brother Claude have POA). Would appreciate updates by phone: [phone] Patient seen in collaboration with Dr. Sorensen. Please see addendum. History of Present Illness Chief Complaint: Fall Primary Care Provider: Devi Luna, DO This is an 87yo F with a PMH of COPD, peripheral vascular disease, hypertension, HFpEF, esophageal dysmotility, CKD 3, Alzheimer's dementia, bipolar 2 disorder, depression, tobacco use and other medical problems listed below presents after mechanical fall at home today. Patient was recently admitted to our service from 01/04- hypoxic respiratory failure initially requiring bipap 2/2 decompensated CHF and possible PNA and was subsequently discharged to [facility]. Was returning home with today when she missed a step walking into her home with her walker and fell backwards onto left side. Denies head trauma or LOC. Presented to ED with left shoulder pain for further evaluation. Not on any anticoagulation. No other acute issues, per patient. No F/C, lightheade dness, CP, SOB, N/V, abdominal pain, dysuria, diarrhea or constipation. Chronic lower extremity swelling, unchanged from previous. During previous admission, patient completed empiric IV Invanz and Doxy course for possible PNA. Was also managed by cardiology with IV lasix and transitioned to 20mg Lasix and 12.5mg spironolactone at time of discharge. Allergies Allergy/AdvReac Type Severity Reaction Status Date / Time ceftriaxone Allergy Intermediate hives Verified 10/06/22 20:25 Iodinated Contrast Media Allergy Intermediate pruritus Verified 10/06/22 20:25 (feet) Penicillins Allergy Intermediate hives Verified 10/06/22 20:25 cisapride AdvReac Intermediate GI symptoms Verified 10/06/22 20:25 solifenacin AdvReac Intermediate blurred Verified 10/06/22 20:25 vision Home Medications Medication Instructions Recorded Confirmed Type donepezil 5 mg tablet 5 mg PO QAM 11/11/23 11/28/23 History folic acid 1 mg tablet 1 mg PO QAM 01/04/23 01/21/23 History lamotrigine 25 mg tablet 25 mg PO QAM 01/04/23 01/21/23 History mirabegron 50 mg tablet,extended 50 mg PO QAM 01/04/23 01/21/23 History release 24 hr (Myrbetriq) risperidone 0.5 mg tablet 0.5 mg PO BID 01/04/23 01/21/23 History sertraline 50 mg tablet 50 mg PO DAILY 01/04/23 01/21/23 History tramadol 50 mg tablet 50 mg PO TID PRN Pain 01/04/23 01/21/23 History furosemide 20 mg tablet 20 mg PO QAM #30 tabs 01/13/23 01/21/23 Rx spironolactone 25 mg tablet 12.5 mg (1/2 x 25 mg) PO DAILY #30 01/13/23 01/21/23 Rx tabs famotidine 20 mg tablet 20 mg PO DAILY 01/21/23 01/21/23 History nystatin-triamcinolone 100,000 1 applic topical TID 01/21/23 01/21/23 History unit/g-0.1 % topical cream triamterene 37.5 1 tab PO QAM 01/21/23 01/21/23 History mg-hydrochlorothiazide 25 mg tablet Past Med/Surg History Medical History COPD (chronic obstructive pulmonary disease) Ambulatory dysfunction OAB (overactive bladder) s/p nerve stimulator Bipolar disorder Osteoarthritis Degenerative disc disease Chronic back pain Depression GERD (gastroesophageal reflux disease) CKD (chronic kidney disease) stage 3, GFR 30-59 ml/min Hyperlipidemia Hypertension Surgical History History of arthroplasty of left knee H/O vaginal hysterectomy History of arthroplasty of right knee H/O bladder repair surgery "vaginal sling procedure for stress incontinence 11/2006 " History of carpal tunnel surgery "Right" History of appendectomy History of tonsillectomy and adenoidectomy Family History Father Family hx of colon cancer Brother Family history of diabetes mellitus Sister Family history of diabetes mellitus Social History Smoking Status: Former smoker Tobacco Type: Cigarettes Cigarettes Per Day: 7-9; Second Hand Exposure: No; Do You Dip or Chew Tobacco: No; Hx Alcohol Use: No Hx Substance Use: No Preferred Language: Chinese Communication Ability: Effective Car Dryer Required: No Beliefs That Will Affect Care: None marital status: Current Living Situation: Spouse Feels Safe at Home: Yes Assistive Devices: Cane and Walker Review of Systems Review of Systems: At least ten systems reviewed and negative except as noted in the HPI. Physical Exam Physical Exam: Please see Dr. Sorensen's addendum for physical exam. Results & Data Results & Data Vital Signs (Past 12 Hours) Vital Signs Temp Pulse Resp BP Pulse Ox O2 Del Method 01/21/23 15:09 36.5 C 89 16 136/73 91 Room Air Laboratory Results Short CBC 01/21/23 Range/Units 18:43 WBC 10.98 H (4.8-10.8) K/ul Hgb 9.0 L (12.0-16.0) g/dl Hct 30.1 L (37.0-47.0) % Plt Count 280 (130-400) K/uL BMP 01/21/23 18:43 Sodium 140 Potassium 3.9 Chloride 105 Carbon Dioxide 27 BUN 18 Creatinine 0.83 Glucose 139 H Calcium 9.7 Liver Function 01/21/23 Range/Units 18:43 Total Bilirubin 0.3 (0.2-1.0) mg/dl AST 13 (13-39) U/L ALT 11 (7-52) U/L Alkaline Phosphatase 82 (34-104) U/L Albumin 3.3 L (3.4-5.0) gm/dl Diagnostic Findings Cervical Spine CT 01/21/23 15:15 CT cervical spine wo con CT DOSE: 1445.52 mGy.cm CLINICAL HISTORY: 87 years-old Female with fall. Acute neck pain status post fall COMPARISON: None. TECHNIQUE: Multiple axial CT images of the cervical spine were obtained without contrast. A dose lowering technique was utilized adhering to the principles of ALARA. FINDINGS: Demineralized appearance of the bones with moderate multilevel intervertebral disc space narrowing and facet arthrosis with moderate spurring. Mild levoscoliosis. Unchanged defect within the right posterior arch of C1. Atherosclerotic plaque of the carotid bulbs. The cervical soft tissues appear unremarkable. The visualized lung apices appear clear. IMPRESSION: No acute cervical spine fracture or subluxation. ACT 112: Negative or not required by law. The above report was generated using voice recognition software. It may contain grammatical, syntax or spelling errors. Electronically signed by: Jean-Pierre Suarez M.D. 01/21/2023 4:44 PM Chest X-Ray 01/21/23 15:15 SINGLE VIEW CHEST CLINICAL HISTORY: Fall. FINDINGS: An AP, portable, upright chest radiograph is compared to study dated 01/04/2023. Correlation is made with chest CT dated 04/17/2021. The examination is degraded by portable technique and patient rotation. The heart is enlarged note atherosclerotic calcification of the thoracic aorta. There is mild pulmonary vascular congestion. Chronic interstitial thickening is similar to previous. Dependent airspace opacities are seen at both lung bases. Question trace pleural effusions. No pneumothorax is seen. The skeletal structures are osteopenic. There is a displaced spiral fracture of the left humeral neck. IMPRESSION: 1. Displaced spiral fracture of the left humeral neck. 2. Cardiomegaly with pulmonary vascular congestion. 3. Suspect small pleural effusions. 4. Dependent airspace opacities likely represent atelectasis. Correlate clinically. ACT 112: Negative or not required by law. Electronically signed by: Gentry Young M.D. 01/21/2023 3:[address] 01/21/23 15:15 CT OF THE HEAD WITHOUT CONTRAST CLINICAL HISTORY: Fall. COMPARISON STUDY: Head CT January 04, 2023. TECHNIQUE: Helical axial images of the head were obtained without IV contrast. Automated exposure control was utilized for the study. A dose lowering technique was utilized adhering to the principles of ALARA. FINDINGS: No acute intracranial hemorrhage, midline shift or mass effect is present. The ventricular system is stable. White matter hypodensities are unchanged and favor small vessel disease. 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 There is an old infarct within the left basal ganglia which is also unchanged. The appearance of the brain is unchanged. There is no acute calvarial fracture. IMPRESSION: 1. No acute intracranial findings. No change in appearance of the brain. 2. No acute calvarial fracture. ACT 112: Negative or not required by law. Electronically signed by: Heraclio Suarez M.D. 01/21/2023 4:26 PM Shoulder X-Ray 01/21/23 15:15 XR shoulder LT min 2V routine CLINICAL HISTORY: Left shoulder pain following fall. COMPARISON: Chest radiograph January 04, 2023. FINDINGS: There is a comminuted acute moderately displaced fracture of the neck and proximal shaft of the left humerus. Fracture is displaced 1.6 cm. Alignment of the left acromioclavicular and glenohumeral joints is anatomic. Moderate degenerative changes within the left shoulder are present. IMPRESSION: Acute moderately displaced comminuted fracture of the neck and proximal shaft of the left humerus. ACT 112: Negative or not required by law. Electronically signed by: Heraclio Suarez M.D. 01/21/2023 3:39 PM ECG Additional Comments: EKG reviewed: Normal sinus rhythm, no acute ST changes Supervising Physician Co-Signing Physician Notes Pt seen and examined by me, care coordinated w/ Sim Bradshaw PA-C, pls refer to her note above for further detail. Pt is an 87yo F with COPD, peripheral vascular disease, hypertension, HFpEF, esophageal dysmotility, CKD 3, Alzheimer's dementia, bipolar 2 disorder, depression, tobacco use who presents after mechanical fall at home today. Patient was recently admitted to our service from 01/04- hypoxic respiratory failure initially requiring bipap 2/2 decompensated CHF and possible PNA and was subsequently discharged to [facility]. Was returning home with today when she missed a step walking into her home with her walker and fell backwards onto left side. Denies head trauma or LOC. Presented to ED with left shoulder pain for further evaluation. Not on any anticoagulation. Denies lightheadedness, CP, SOB, N/V. Has chronic lower extremity swelling, unchanged from previous. Currently laying in bed in [facility]. She is awake,alert, oriented, answers approp riately. Reports left arm pain but no chest pain or palpitations. Left arm is in a sling. Heart sounds regular, no murmur. + mild rhonchi on auscultation, no wheezing. Abdomen is soft, nontender, nondistended. 1+ LE edema b/l Moves extremities, except for left arm d/t pain. Skin is warm and dry. CXR with some pulm. vasc. congestion. Will check pro-BNP. Repeat CXR tmrw AM. provide duonebs prn in addition to home inhalers, given her hx of copd. Orthopedics consulted and considering surgical repair pending medical clearance. Will discuss w/ cardiology - pre-op assessment. MD Edu (3) (HFpEF) heart failure with preserved ejection fraction Heart failure chronicity: acute Qualified Code(s): I50.31 - Acute diastolic (congestive) heart failure
--- NOTE | 2023-01-21 17:18 | Orthopedic Consultation ---
Date of Service January 21, 2023 Assessment & Plan (1) Left humeral fracture: 87-year-old [id number] female with multiple medical comorbidities with a displaced proximal humeral diaphyseal fracture. The fracture is completely displaced. Patient's got multiple medical comorbidities. Plan: She is can be admitted to the hospitalist service. Will get her a sling and swath for now. I will get a medical evaluation and determine whether surgery may be beneficial for her. This fracture is completely displaced and would likely benefit from surgical management if her medical condition is such that allows. Will get the medical evaluation and make a decision. In the meantime we will keep her in a shoulder sling/immobilizer. Keep the head of the bed elevated is much as possible. Any orthopedic questions can be directly [phone] History of Present Illness Reason for Consultation: . Left humerus fracture. Requesting Physician: . . Patient is an 87-year-old [id number] female with multiple medical comorbidities including congestive heart failure, COPD, bipolar disorder, hypertension, elevated cholesterol, chronic kidney disease, Gastrosoft reflux disease, and depression who sustained a fall today. She was recently hospitalized for limited mobility and ambulatory dysfunction.She was discharged to rehab and was on her way home today when she missed a step and injured her left arm from a fall. No other injuries. Denies any pain anywhere else. Describes isolated left upper arm pain. Allergies Allergy/AdvReac Type Severity Reaction Status Date / Time ceftriaxone Allergy Intermediate hives Verified 10/06/22 20:25 Iodinated Contrast Media Allergy Intermediate pruritus Verified 10/06/22 20:25 (feet) Penicillins Allergy Intermediate hives Verified 10/06/22 20:25 cisapride AdvReac Intermediate GI symptoms Verified 10/06/22 20:25 solifenacin AdvReac Intermediate blurred Verified 10/06/22 20:25 vision Home Medications Medication Instructions Recorded Confirmed Type donepezil 5 mg tablet 5 mg PO DAILY 01/04/23 01/04/23 History folic acid 1 mg tablet 1 mg PO DAILY 01/04/23 01/04/23 History lamotrigine 25 mg tablet 25 mg PO DAILY 01/04/23 01/04/23 History mirabegron 50 mg tablet,extended 50 mg PO DAILY 01/04/23 01/04/23 History release 24 hr (Myrbetriq) risperidone 0.5 mg tablet 0.5 mg PO BID 01/04/23 01/04/23 History sertraline 50 mg tablet 50 mg PO DAILY 01/04/23 01/04/23 History tramadol 50 mg tablet 50 mg PO TID PRN Pain 01/04/23 01/04/23 History furosemide 20 mg tablet 20 mg PO QAM #30 tabs 01/13/23 Rx spironolactone 25 mg tablet 12.5 mg (1/2 x 25 mg) PO DAILY #30 01/13/23 Rx tabs Past Med/Surg History Medical History COPD (chronic obstructive pulmonary disease) Ambulatory dysfunction OAB (overactive bladder) s/p nerve stimulator Bipolar disorder Osteoarthritis Degenerative disc disease Chronic back pain Depression GERD (gastroesophageal reflux disease) CKD (chronic kidney disease) stage 3, GFR 30-59 ml/min Hyperlipidemia Hypertension Surgical History History of arthroplasty of left knee H/O vaginal hysterectomy History of arthroplasty of right knee H/O bladder repair surgery "vaginal sling procedure for stress incontinence 11/2006 " History of carpal tunnel surgery "Right" History of appendectomy History of tonsillectomy and adenoidectomy Family History Father Family hx of colon cancer Brother Family history of diabetes mellitus Sister Family history of diabetes mellitus Social History Smoking Status: Former smoker Tobacco Type: Cigarettes Cigarettes Per Day: 7-9; Second Hand Exposure: No; Do You Dip or Chew Tobacco: No; Hx Alcohol Use: No Hx Substance Use: No Preferred Language: Swedish Communication Ability: Effective Legal Word Processor Required: No Beliefs That Will Affect Care: None marital status: Current Living Situation: Spouse Feels Safe at Home: Yes Assistive Devices: Cane and Walker Review of Systems All systems reviewed & are unremarkable except as noted in HPI & below. Physical Exam . Physical examination was a pleasant elderly frail left female. I does not look in optimal health. Examination of the left shoulder and arm reveals no obvious deformity. She does have palpable discomfort of the left upper arm and shoulder area. She can flex extend her fingers and wrist appropriately. She got pain with any type of elbow and arm motion. She is neurologically intact. Results & Data Results & Data Laboratory Results . Diagnostic Findings . X-rays of the left humerus revealed a completely displaced proximal fracture of the humerus at the metaphyseal diaphyseal junction. It is completely displaced. Diffuse osteopenia. PG Care Time/CCT Total # of Minutes Spent Total Time Spent with Patient: Total time spent is greater than 50% in coordination of care (as documented) at patient's floor/unit and/or counseling patient: Coding Level of Care Code 07291 IN/OBS CONSULT LVL 4,60M Diagnoses Left humeral fracture S42.302A
[2023-01-21] MEDS ORDERED: ALBUT/IPRATROP 3MG/0.5MG NEB 3 ML VIAL NEB PRN (17:34)
[2023-01-21] MEDS: guaiFENesin 600 MG TABCR PO SCH (18:23)
[2023-01-21 18:58] LABS: Basophils # (auto) 0.01 K/uL (0.00-0.20); Basophils % (auto) 0.1 %; Eosinophils # (auto) 0.02 K/uL (0.00-0.50); Eosinophils % (auto) 0.2 %; Hematocrit (blood only) 30.1 % (37.0-47.0); Immature Granulocytes # (auto) 0.04 K/uL (0.01-0.20); Immature Granulocytes % (auto) 0.4 %; Lymphocytes % (auto) 6.4 %; Mean Corpuscular Hemoglobin 29.4 pg (25.0-34.0); Mean Corpuscular Hgb Conc 29.9 g/dL (32.0-36.0); Mean Corpuscular Volume 98.4 fL (80.0-100.0); Mean Platelet Volume 10.7 fL (9.4-12.4); Monocytes # (auto) 0.85 K/uL (0.11-0.59); Monocytes % (auto) 7.7 %; Neutrophils # (auto) 9.36 K/uL (1.40-6.50); Neutrophils % (auto) 85.2 %; Platelet Count 280 K/uL (130-400); RDW Coefficient of Variation 18.6 % (11.5-14.5); Red Blood Count 3.06 M/uL (4.20-5.40); White Blood Count 10.98 K/ul (4.8-10.8)
[2023-01-21 19:16] LABS: Albumin Globulin Ratio 1.1 (0.9-2); Albumin Level 3.3 gm/dl (3.4-5.0); BUN Creatinine Ratio 21.7 (10-20); Bilirubin,Total 0.3 mg/dl (0.2-1.0); Calcium 9.7 mg/dl (8.6-10.3); Creatinine Clr Calc Pharmacy 55.6 ml/min; Est GFR (Non-African American) 63.9 ml/min; Globulin 2.9 gm/dl (2.5-4.0); Magnesium 2.2 mg/dl (1.7-2.4); Phosphorus 3.6 mg/dl (2.5-4.9); Potassium 3.9 mmol/L (3.5-5.1); Total Protein 6.2 gm/dl (6.0-8.3)
[2023-01-21] MEDS ORDERED: POTASSIUM CHLORIDE CRTAB 20 MEQ TABCR PO STA (20:04)
[2023-01-21] MEDS ORDERED: traMADol HCL 50 MG TABLET PO PRN (20:29)
[2023-01-21] MEDS ORDERED: ONDANSETRON INJ 2 MG/ML 2 ML VIAL IV PRN (20:29)
[2023-01-21] MEDS ORDERED: POLYETHYLENE (MIRALAX) 17 GM PACK PO PRN (20:29)
[2023-01-21] MEDS: ACETAMINOPHEN 500 MG TAB PO SCH (20:49)
[2023-01-21] MEDS: risperiDONE 0.5 MG TABLET PO SCH (22:41)
--- OUTSIDE RECORDS SUMMARY | 2023-01-22 00:05 | External Medical Summary | Summary of Care ---
Author Name Unknown Organization [facility] Address [address] [place] [address] Phone [phone] Care Team Providers Care Field Identification Specialist Name Role Phone Devi Luna DO Primary Care Provider [phone] Reason for Visit * Reason Onset Date Comments Appointment 01/10/2023 Encounter Details Date Type Department Care Team (Late st Contact Info) Description 01/10/2023 1:30 PM EST Scheduled Telephone [facility], [facility] 132 [facility] [place] [address] Coordinator, [facility] 132 [facility] [place] [address] Allergies Active Allergy Reactions Criticality Noted Date Comments Ceftriaxone Sodium hives Cisapride Propulsid--vomiting Cisapride 09/23/2017 Iodinated Contrast Media 09/23/2017 Renografin--itching /feet only Penicillins hives Solifenacin Succinate Other (Please comment) 06/17/2008 Blurred vision at 10 mg dose documented as of this encounter (statuses as of 01/10/2023) Medications Medication Sig Dispensed Refills Start Date [...] 30 Tablet 11 11/05/2022 Active Nystatin-Triamcinol one 083384-5.1 UNIT/GM-% External Cream (Mycolog) Apply topically to affected area 3 times a day. Apply to vagina 30 g 0 11/15/2022 Active hydroCHLOROthiazide 12.5 MG Oral Capsule (Hydrodiuril) Take 1 Capsule by mouth in the morning. 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 135 Tablet 2 01/01/2023 Active documented as of this encounter (statuses as of 01/10/2023) Active Problems Problem Noted Date Diagnosed Date [...] as of this encounter (statuses as of 01/10/2023) Resolved Problems Problem Noted Date Diagnosed Date [...] as of this encounter (statuses as of 01/10/2023) Immunizations Name Administration Dates Next Due Covid-19, [...] encounter Miscellaneous Notes * Telephone Encounter - Marga Coulter OSA - 01/10/2023 10:36 AM EST [facility] Engagement Attempt Engagement: Engagement Attempt 1: Data deleted Home Information: No data was found Advance Care Planning (ACP): No data was found Has Living Will or Advance Directive: No data was found Anticipated Sub-Program: Focused Care Management (3-9 months) Confirmation of Sub-Program Type (by care steam turbine operator): No data was found Handoff Information: Current care team notified via: Epic communication Current telemonitoring equipment: No data was found Called lmom for call back: Stephanie: 01/15 at 1:30pm AP Telemed documented in this encounter Plan of Treatment Upcoming Encounters Date Type Department Care Team (Late st Contact Info) Description 01/14/2023 11:20 AM EST Office Visit [address] [place] [phone] Denise Ley PA-C [address] [place] [address] [place] [address] 02/05/2023 1:00 PM EST Office Visit Cardiology, [facility] 132 [facility] [place] [address] Humberto Mercedes DO 132 [facility] [place] [address] 02/25/2023 4:00 PM EST Office Visit Family Medicine [address] [phone] Denise Ley PA-C [address] [place] [address] [place] [address] 04/07/2023 1:00 PM EST Imaging Radiology [address] 132 [facility] [place] [address] 04/21/2023 1:45 PM EST Telemedicine Urology Juan Jon [address] [place] [address] Nolberto Osorio MD [address] [place] [address] 7, Telemed Gerson Stevenson Urology Ex Rm [address] [place] [address] 05/26/2023 11:00 AM EDT Laboratory Laboratory [address] [place] [phone] [place], [address] [place] [address] 05/27/2023 2:30 PM EDT Office Visit Family Medicine [address] [place] [phone] [place] [address] 06/02/2023 1:00 PM EDT Office Visit Hematology/Oncology [facility] [place] [address] [place] [address] Marnie Rivera MD [address] [place] [address] 12/29/2023 12:55 PM EST Office Visit Urogynecology Brenda Stevenson [address] [place] [address] Shyla Coulter PA-C [address] [place] [address] Nurse Graham Uroarti Gerson [address] [place] [address] Health Maintenance Due Date Last Done Comments Alpha-1 Antitrypsin 1953 DISCUSS TOBACCO CESSATION (REFER TO SMARTSET #3291) 05/22/2017 05/22/2016 DXA Scan 06/19/2019 06/18/2012, 04/26, 03/13/2005, Additional history exists Depression Screening 04/27/2022 04/27/2021 DTaP,Tdap,and Td Vaccines (2 - Td or Tdap) 10/14/2022 10/14/2012, 09/10/2007, 09/10/2007 COVID-19 Vaccine (2 - 2022- season) 2022 02/08/2022 CKD PHOS USE SMARTSET 70787 05/04/202304/24, 02/19/2021, 10/14/2019, Additional history exists Albumin/Creatinine Ratio 11/20/2023 023, 12/04/2021, 02/20/2021, Additional history exists CKD HGB USE SMARTSET 74121 12/20/202312/19, 12/19/2022, 12/04/2022, Additional history exists O2 [...] this encounter Medical Devices Implanted Type Area Airbrush Artist Photography Device Identifier Shelf Expiration Date Model / Serial / Lot Mesh Vicryl 6 X 6 [facility]-M - [id number] Implanted:Qty: 1 on 12/01/2006 at OR [facility] N/A: Pelvis DO NOT USE 08/25/2011 VKM-M / / [id number] Lead Tined Quad 3889-28 - [id number] Implanted:Qty: 1 on 06/29/2013 at OR [facility] N/A: Back [employer] : NEUROLOGIC PAIN 04/23/2017 3889-28 / / [id number] Generator Ipg Battery 3058 - [id number] Implanted:Qty: 1 on 07/23/2013 at OR [facility] [employer] : NEUROLOGIC PAIN 11/21/2014 3058 / [id number] / Kit Implant Tined Lead - [id number] Implanted:Qty: 1 on 11/24/2019 by Hugo Minor MD at OR [facility] Back [employer] 09/24/2021 1801 / / [id number] Description:no charge documented as of this encounter Advance Directives Documents on File Type Date Recorded Patient Hemodialysis Technician Expl anation Power of Fleet Driver 06/15/2021 Viki [place] nder POWER OF FERRIS WHEEL ATTENDANT Latest Code Status on File Code Status [...] Agent Relationship Communication Javier Arteaga [facility] R epresentative (appointed verbally by patient or by statute hierarchy) [email or web address] Viki Santamaria [facility] Care Repr esentative (appointed verbally by patient or by statute hierarchy) [email or web address] [facility] Care Repr esentative (appointed verbally by patient or by statute hierarchy) Care Teams Field Identification Specialist Relationship Specialty Start Date End Date Devi Luna DO [address] [place] [address] [place] [address] PCP - General Internal Medicine 11/29/16 documented as of this encounter
--- OUTSIDE RECORDS SUMMARY | 2023-01-22 00:05 | External Medical Summary | Summary of Care ---
Author Name Unknown Organization [facility] Address [address] [place] [address] Phone [phone] Care Team Providers Care Broadcast Field Supervisor Name Role Phone Devi Luna DO Primary Care Provider [phone] Reason for Visit * Reason Onset Date Comments Appointment 01/09/2023 Encounter Details Date Type Department Care Team (Late st Contact Info) Description 01/09/2023 Telephone [facility] [place] [address] [place], [place] [phone] Services, Scheduling [address] [place] [address] Appointment (//) Allergies Active Allergy Reactions Criticality Noted Date Comments Ceftriaxone Sodium hives Cisapride Propulsid--vomiting Cisapride 09/23/2017 Iodinated Contrast Media 09/23/2017 Renografin--itching /feet only Penicillins hives Solifenacin Succinate Other (Please comment) 06/17/2008 Blurred vision at 10 mg dose documented as of this encounter (statuses as of 01/09/2023) Medications Medication Sig Dispensed Refills Start Date [...] 30 Tablet 11 11/05/2022 Active Nystatin-Triamcinol one 012453-1.1 UNIT/GM-% External Cream (Mycolog) Apply topically to [...] as of this encounter (statuses as of 01/09/2023) Active Problems Problem Noted Date Diagnosed Date [...] as of this encounter (statuses as of 01/09/2023) Resolved Problems Problem Noted Date Diagnosed Date [...] as of this encounter (statuses as of 01/09/2023) Immunizations Name Administration Dates Next Due Covid-19, [...] encounter Miscellaneous Notes * Telephone Encounter - Allyson Meng, JM - 01/09/2023 1:37 PM EST Received CB from pts daughter, she remains in pt at [facility] and current plan is in pt rehab prior returning home. Rehab yet to be determined. * Telephone Encounter - Unruly Mayes OSA - 01/09/2023 12:07 PM EST [facility] Engagement Attempt Engagement: Engagement Attempt 1: Unable to contact Engagement Attempt 2: Unable to contact Engagement Attempt 3: No data was found Home Information: No data was found Advance Care Planning (ACP): No data was found Has Living Will or Advance Directive: No data was found Anticipated Sub-Program: Focused Care Management (3-9 months) Confirmation of Sub-Program Type (by care warehouse team leader): No data was found Handoff Information: Current care team notified via: Brandle communication Current telemonitoring equipment: No data was found 01/09-LMOM for pt to return call, utc, added FC, looking at: Stephanie: 01/15 at 1:30pm AP Telemed documented in this encounter Plan of Treatment Upcoming Encounters Date Type Department Care Team (Late st Contact Info) Description 01/09/2023 2:00 PM EST Scheduled Telephone [facility], [facility] 132 [place] [address] Coordinator, [place] [address] [place] [address] 01/10/2023 1:30 PM EST Scheduled Telephone [facility], [facility] 132 [place] [address] Coordinator, [facility] 132 [place] [address] 01/14/2023 11:20 AM EST Office Visit Family Medicine [address] [place] [phone] Denise Ley PA-C [address] [place] [address] [place] [address] 02/05/2023 1:00 PM EST Office Visit Cardiology, [facility] 132 [facility] [place], [place] [address] Humberto Mercedes, 132 [facility] [place] [address] 02/25/2023 4:00 PM EST Office Visit Family Medicine [address] [phone] Denise Ley PA-C [address] [place] [address] [place] [address] 04/07/2023 1:00 PM EST Imaging Radiology [address] [facility] [place] [address] 04/21/2023 1:45 PM EST Telemedicine Urology Juan Jon [address] [place] [address] Nolberto Osorio MD [address] [place] [address] 7, Telemed [facility] Urology Ex [address] [place] [address] 05/26/2023 11:00 AM EDT Laboratory Laboratory [address] [place] [phone] [place], [address] [place] [address] 05/27/2023 2:30 PM EDT Office Visit Family Medicine [address] [phone] Devi Luna [address] [place] [address] 06/02/2023 1:00 PM EDT Office Visit Hematology/Oncology Patricia [facility] [place] 200 [facility] [place], [place] [address] Marnie Rivera MD [address] [place] [address] 12/29/2023 12:55 PM EST Office Visit Urogynecology Brenda Stevenson [address] [place] [address] Shyla Coulter PA-C [address] [place] [address] Nurse Susanna Stevenson [address] [place] [address] Health Maintenance Due Date Last Done Comments Alpha-1 Antitrypsin 1953 DISCUSS TOBACCO CESSATION (REFER TO SMARTSET #3291) 05/22/2017 05/22/2016 DXA Scan 06/19/2019 06/18/2012, 04/26, 03/13/2005, Additional history exists Depression Screening 04/27/2022 04/27/2021 DTaP,Tdap,and Td Vaccines (2 - Td or Tdap) 10/14/2022 10/14/2012, 09/10/2007, 09/10/2007 COVID-19 Vaccine (2 - season) 2022 02/08/2022 CKD PHOS USE SMARTSET 04596 05/04/2023 03, 02/19/2021, 10/14/2019, Additional history exists Albumin/Creatinine Ratio 11/20/2023 023, 12/04/2021, 02/20/2021, Additional history exists CKD HGB USE SMARTSET 73940 12/20/202312/19, 12/19/2022, 12/04/2022, Additional history exists O2 [...] this encounter Medical Devices Implanted Type Area Life Assurance Representative Device Identifier Shelf Expiration Date Model / Serial / Lot Mesh Vicryl 6 X 6 Vkm-M - [id number] Implanted:Qty: 1 on 12/01/2006 at OR [facility] N/A: Pelvis DO NOT USE 08/25/2011 VKM-M / / [id number] Lead Tined Quad 3889-28 - [id number] Implanted:Qty: 1 on 06/29/2013 at OR [facility] N/A: Back [employer] : NEUROLOGIC PAIN 04/23/2017 3889-28 / / [id number] Generator Ipg Battery 3058 - [id number] Implanted:Qty: 1 on 07/23/2013 at OR [facility] [employer] : NEUROLOGIC PAIN 11/21/2014 3058 / [id number] / Kit Implant Tined Lead - [id number] Implanted:Qty: 1 on 11/24/2019 by Hugo Minor MD at OR [facility] Back [employer] 09/24/2021 1801 / / [id number] Description:no charge documented as of this encounter Advance Directives Documents on File Type Date Recorded Patient Cnc Manager Expl anation Power of Battery Assembler 06/15/2021 Viki oviedo POWER OF PUMP ERECTOR HELPER Latest Code Status on File Code Status [...] Relationship Healthcare Agent Relationship Communication Javier Arteaga [facility] R epresentative (appointed verbally by patient or by statute hierarchy) [email or web address] Viki Hina [facility] Repr esentative (appointed verbally by patient or by statute hierarchy) [email or web address] [facility] Repr esentative (appointed verbally by patient or by statute hierarchy) Care Teams Broadcast Field Supervisor Relationship Specialty Start Date End Date Devi Luna DO [address] [place] [address] [place] [address] PCP - General Internal Medicine 11/29/16 documented as of this encounter
--- OUTSIDE RECORDS SUMMARY | 2023-01-22 00:05 | External Medical Summary | Summary of Care ---
Author Name Unknown Organization [facility] Address [address] [place] [address] Phone [phone] Care Team Providers Care Test Specialist Name Role Phone Devi Luna DO Primary Care Provider Reason for Visit * Reason Onset Date Comments Appointment 01/09/2023 Encounter Details Date Type Department Care Team (Late st Contact Info) Description 01/09/2023 Telephone [facility] [place] [address] [place], [place] [phone] Services, Scheduling [address] [place] [address] Appointment (//) Allergies Active Allergy Reactions Criticality [...] 30 Tablet 11 11/05/2022 Active Nystatin-Triamcinol one 936953-0.1 UNIT/GM-% External Cream (Mycolog) Apply topically to [...] encounter Miscellaneous Notes * Telephone Encounter - Unruly Mayes OSA [...] months) Confirmation of Sub-Program Type (by care crew team member): No data was found Handoff Information: Current care team notified via: Epic communication Current telemonitoring equipment: No data was found 01/09-LMOM for pt to return call, okc, added FC, looking at: Stephanie: 01/15 at 1:30pm AP Telemed documented in this encounter Plan of Treatment Upcoming Encounters Date Type Department Care Team (Late st Contact Info) Description 01/09/2023 2:00 PM EST Scheduled Telephone [facility], [facility] 132 [facility] [place] [address] Coordinator, [place] [address] [facility] [place] [address] 01/10/2023 1:30 PM EST Scheduled Telephone [facility], [facility] [address] [place] [address] Coordinator, [facility] 132 [facility] [place] [address] 01/14/2023 11:20 AM EST Office [address] [phone] Denise Ley PA-C [address] [place] [address] [place] [address] 02/05/2023 1:00 PM EST Office Visit Cardiology, [facility] [address] [place] [address] Humberto Mercedes DO [address] [place] [address] 02/25/2023 4:00 PM EST Office Visit Family Medicine [address] [place] [phone] Denise Ley PA-C [address] [place] [address] [place] [address] 04/07/2023 1:00 PM EST Imaging Radiology [facility] [address] [place] [address] 04/21/2023 1:45 PM EST Telemedicine Urology [address] [place] [address] Nolberto Osorio MD [address] [place] [address] 7, Telemed [facility] Urology Ex 132 [facility] [place] [address] 05/26/2023 11:00 AM EDT Laboratory Laboratory [address] [place] [phone] [address] [place] [address] 05/27/2023 2:30 PM EDT Office Visit Family [address] [place] [phone] Devi Luna [address] [place] [address] 06/02/2023 1:00 PM EDT Office Visit Hematology/Oncology [facility] [address] [place] [address] Marnie Rivera MD [address] [place] [address] 12/29/2023 12:55 PM EST Office Visit Urogynecology [facility] [address] [place] [address] Shyla Coulter PA-C [address] [place] [address] Nurse Susanna Stevenson [address] [place] [address] Health Maintenance Due Date Last Done Comments Alpha-1 Antitrypsin 1953 DISCUSS TOBACCO CESSATION (REFER TO SMARTSET #3291) 05/22/2017 05/22/2016 DXA Scan 06/19/2019 06/18/2012, 04/26, 03/13/2005, Additional history exists Depression Screening 04/27/2022 04/27/2021 DTaP,Tdap,and Td Vaccines (2 - Td or Tdap) 10/14/2022 10/14/2012, 09/10/2007, 09/10/2007 COVID-19 Vaccine (2 - 2022- season) 2022 02/08/2022 CKD PHOS USE SMARTSET 82805 05/04/202304/24, 02/19/2021, 10/14/2019, Additional history exists Albumin/Creatinine Ratio 11/20/2023 023, 12/04/2021, 02/20/2021, Additional history exists CKD HGB USE SMARTSET 06979 12/20/202312/19, 12/19/2022, 12/04/2022, Additional history exists O2 [...] this encounter Medical Devices Implanted Type Area Systems Support Officer Device Identifier Shelf Expiration Date Model / Serial / Lot Mesh Vicryl 6 X 6 Vkm-M - [id number] Implanted:Qty: 1 on 12/01/2006 [place] [facility]/A: Pelvis DO NOT USE 08/25/2011 VKM-M / / [id number] Lead Tined Quad 3889-28 - [id number] Implanted:Qty: 1 on 06/29/2013 [place] [facility] [place]A: Back [employer] : NEUROLOGIC PAIN 04/23/2017 3889-28 / / [id number] Generator Ipg Battery 3058 - [id number] Implanted:Qty: 1 on 07/23/2013 at [place] [facility] [place] [employer] : NEUROLOGIC PAIN 11/21/2014 3058 / [id number] / Kit Implant Tined Lead - [id number] Implanted:Qty: 1 on 11/24/2019 by Hugo Minor MD at OR [facility] Back [employer] 09/24/2021 1801 / / [id number] Description:no charge documented as of this encounter Advance Directives Documents on File Type Date Recorded Patient Corporate Buyer Expl anation Power of Pet Caregiver 06/15/2021 Viki [place] nder POWER OF EXECUTIVE OFFICER Latest Code Status on File Code Status [...] Relationship Healthcare Agent Relationship Communication Javier Arteaga [facility] R epresentative (appointed verbally by patient or by statute hierarchy) [email or web address] Viki Santamaria [facility] Repr esentative (appointed verbally by patient or by statute hierarchy) [email or web address] Claude [facility] Child [facility] Care Repr esentative (appointed verbally by patient or by statute hierarchy) Care Teams Test Specialist Relationship Specialty Start Date End Date Devi Luna DO [address] [place] [address] [place] [address] PCP - General Internal Medicine 11/29/16 documented as of this encounter
--- OUTSIDE RECORDS SUMMARY | 2023-01-22 00:05 | External Medical Summary | Summary of Care ---
Author Name Unknown Organization [facility] Address [address] [place] [address] Phone [phone] Care Team Providers Care Electrical Equipment Tester Name Role Phone Devi Luna DO Primary Care Provider Reason for Visit * Reason Onset Date Comments [facility]: Maintenance 01/17/2023 Encounter Details Date Type Department Care Team (Late st Contact Info) Description 01/17/2023 Telephone [facility], [facility] [address] [facility] [place] [address] [facility], Nurse [facility] [address] [facility] [place] [address] [facility]: Maintenance Allergies Active Allergy Reactions Criticality Noted Date Comments Ceftriaxone Sodium hives Cisapride Propulsid--vomiting Cisapride 09/23/2017 Iodinated Contrast Media 09/23/2017 Renografin--itching /feet only Penicillins hives Solifenacin Succinate Other (Please comment) 06/17/2008 Blurred vision at 10 mg dose documented as of this encounter (statuses as of 01/17/2023) Medications Medication Sig Dispensed Refills Start Date [...] 30 Tablet 11 11/05/2022 Active Nystatin-Triamcinol one 747542-0.1 UNIT/GM-% External Cream (Mycolog) Apply topically to [...] as of this encounter (statuses as of 01/17/2023) Active Problems Problem Noted Date Diagnosed Date [...] as of this encounter (statuses as of 01/17/2023) Resolved Problems Problem Noted Date Diagnosed Date [...] as of this encounter (statuses as of 01/17/2023) Immunizations Name Administration Dates Next Due Covid-19, [...] Recorded PHQ Adult Total Score 0 04/27/2021 Hunger Vital Sign Answer Date Recorded Within the past 12 months, y ou worried that your food would run out before you got the money to buy more. Never true 10/11/19 23 Within the past 12 months, t he food you bought just didn't last and you didn't have money to get more. Never true 10/10/2022 Sex and Gender Information Value Date Recorded Sex Assigned at Female 04/25/2020 10:12 AM EST Gender Identity Female 04/25/2020 10:12 AM EST Sexual Orientation Straight 04/25/2020 10 :12 AM EST Job Start Date Occupation Industry Not on file Not on file Not on file documented as of this encounter Miscellaneous Notes * Telephone Encounter - Allyson Meng LPN - 01/17/2023 8:42 AM EST Noted dc [facility] to [facility] added to follow for dc. documented in this encounter Plan of Treatment Upcoming Encounters Date Type Department Care Team (Late st Contact Info) Description 01/28/2023 9:00 AM EST Scheduled Telephone [facility], [facility] [address] [place] [address] Serina Casas, [address] [place] [address] 02/05/2023 1:00 PM EST Office Visit Cardiology, [facility] [address] [place] [address] Humberto Mercedes DO [address] [place] [address] 02/25/2023 4:00 PM EST Office Visit Family Medicine [address] [phone] Denise Ley PA-C [address] [place] [address] [place] [address] 04/07/2023 1:00 PM EST Imaging Radiology [address] [place] [address] 04/21/2023 1:45 PM EST Telemedicine Urology Juan Jon [address] [place] [address] Nolberto Osorio MD [address] [place] [address] 7, Telemed [facility]erson Stevenson Urology Ex Rm [address] [place] [address] 05/26/2023 11:00 AM EDT Laboratory Laboratory [address] [place] [phone] [place], Lab [address] [place] [address] 05/27/2023 2:30 PM EDT Office Visit Family Medicine [address] [place] [phone] [place] [address] 06/02/2023 1:00 PM EDT Office Visit Hematology/Oncology [facility] [address] [place] [address] Marnie Rivera MD [address] [place] [address] 12/29/2023 12:55 PM EST Office Visit Urogynecology Brenda Stevenson [address] [place] [address] Shyla Coulter PA-C [address] [place] [address] Nurse Susanna Stevenson [place] [address] [place] [address] Health Maintenance Due Date Last Done Comments Alpha-1 Antitrypsin 1953 DISCUSS TOBACCO CESSATION (REFER TO SMARTSET #3291) 05/22/2017 05/22/2016 DXA Scan 06/19/2019 06/18/2012, 04/26, 03/13/2005, Additional history exists Depression Screening 04/27/2022 04/27/2021 DTaP,Tdap,and Td Vaccines (2 - Td or Tdap) 10/14/2022 10/14/2012, 09/10/2007, 09/10/2007 COVID-19 Vaccine (2 - season) 2022 02/08/2022 CKD PHOS USE SMARTSET 94483 05/04/202304/24, 02/19/2021, 10/14/2019, Additional history exists Albumin/Creatinine Ratio 11/20/2023 023, 12/04/2021, 02/20/2021, Additional history exists CKD HGB USE SMARTSET 34815 12/20/202312/19, 12/19/2022, 12/04/2022, Additional history exists O2 [...] encounter Medical Devices Implanted Type Area Financial Engineer Device Identifier Shelf Expiration Date Model / Serial / Lot Mesh Vicryl 6 X 6 [facility]-M - [id number] Implanted:Qty: 1 on 12/01/2006 at [place] [facility] N/A: Pelvis DO NOT USE 08/25/2011 VKM-M / / [id number] Lead Tined Quad 3889-28 - [id number] Implanted:Qty: 1 on 06/29/2013 at [place] [facility] N/A: Back [employer] : NEUROLOGIC PAIN 04/23/2017 3889-28 / / [id number] Generator Ipg Battery 3058 - [id number] Implanted:Qty: 1 on 07/23/2013 at [place] [facility] [employer] : NEUROLOGIC PAIN 11/21/2014 3058 / [id number] / Kit Implant Tined Lead - [id number] Implanted:Qty: 1 on 11/24/2019 by Hugo Minor MD at OR [facility] Back [employer] 09/24/2021 1801 / / [id number] Description:no charge documented as of this encounter Advance Directives Documents on File Type Date Recorded Patient Legal Services Manager Expl anation Power of Cell Room Operator 06/15/2021 Viki [place] nder POWER OF FIRE MARSHAL REFINERY Latest Code Status on File Code Status [...] Name Relationship Healthcare Agent Relationship Communication Javier [facility] R epresentative (appointed verbally by patient or by statute hierarchy) [email or web address] Viki Santamaria [facility] Care Repr esentative (appointed verbally by patient or by statute hierarchy) [email or web address] [facility] Repr esentative (appointed verbally by patient or by statute hierarchy) Care Teams Electrical Equipment Tester Relationship Specialty Start Date End Date Devi Luna DO [address] [place] [address] [place] [address] PCP - General Internal Medicine 11/29/16 documented as of this encounter
--- OUTSIDE RECORDS SUMMARY | 2023-01-22 00:06 | External Medical Summary | Summary of Care ---
Author Name Unknown Organization [facility] Address [address] [place] [address] Phone [phone] Care Team Providers Care Metal Door Assembler Name Role Phone Devi Luna DO Primary Care Provider Reason for Visit * Reason Onset Date Comments [facility]: Screening 01/07/2023 Encounter Details Date Type Department Care Team (Late st Contact Info) Description 01/07/2023 Telephone [facility], [place] [facility] [address] [place], [place] [id number] [facility], Nurse [facility] [address] [place] [address] [facility]: Screening Allergies Active Allergy Reactions Criticality Noted Date Comments Ceftriaxone Sodium hives Cisapride Propulsid--vomiting Cisapride 09/23/2017 Iodinated Contrast Media 09/23/2017 Renografin--itching /feet only Penicillins hives Solifenacin Succinate Other (Please comment) 06/17/2008 Blurred vision at 10 mg dose documented as of this encounter (statuses as of 01/07/2023) Medications Medication Sig Dispensed Refills Start Date [...] 30 Tablet 11 11/05/2022 Active Nystatin-Triamcinol one 941201-4.1 UNIT/GM-% External Cream (Mycolog) Apply topically to [...] as of this encounter (statuses as of 01/07/2023) Active Problems Problem Noted Date Diagnosed Date [...] as of this encounter (statuses as of 01/07/2023) Resolved Problems Problem Noted Date Diagnosed Date [...] as of this encounter (statuses as of 01/07/2023) Immunizations Name Administration Dates Next Due Covid-19, [...] encounter Miscellaneous Notes * Telephone Encounter - Ritika Sullivan LPN - 01/07/2023 10:32 AM EST Debra Rose was referred as a potential candidate for enrollment for [facility]. A review of this chart was completed and: Debra meets criteria for [facility]. Jump to Initiation Referring care team was notified via : Epic communication documented in this encounter Plan of Treatment Upcoming Encounters Date Type Department Care Team (Late st Contact Info) Description 02/25/2023 4:00 PM EST Office Visit Family Medicine [address] [place] [phone] Denise Ley PA-C [address] [place] [address] [place] [address] 04/07/2023 1:00 PM EST Imaging Radiology [address] 132 [facility] [place] [address] 04/21/2023 1:45 PM EST Telemedicine Urology Juan Jon [address] [place] [address] Nolberto Osorio MD [address] [place] [address] 7, Telemed [facility] Urology Ex 132 [facility] [place] [address] 05/26/2023 11:00 AM EDT Laboratory Laboratory [address] [place] [phone] [address] [place] [address] 05/27/2023 2:30 PM EDT Office Visit Family [address] [place] [phone] Devi Luna [address] [place] [address] 06/02/2023 1:00 PM EDT Office Visit Hematology/Oncology [employer] [address] [facility] [place] [address] Marnie Rivera MD 200 [facility] [place], [place] [address] 12/29/2023 12:55 PM EST Office Visit Urogynecology Brenda Stevenson [address] [place] [address] Shyla Coulter PA-C [address] [place] [address] Nurse Susanna Stevenson [address] [place] [address] Health Maintenance Due Date Last Done Comments Alpha-1 Antitrypsin 1953 DISCUSS TOBACCO CESSATION (REFER TO SMARTSET #3291) 05/22/2017 05/22/2016 DXA Scan 06/19/2019 06/18/2012, 04/26, 03/13/2005, Additional history exists Depression Screening 04/27/2022 04/27/2021 DTaP,Tdap,and Td Vaccines (2 - Td or Tdap) 10/14/2022 10/14/2012, 09/10/2007, 09/10/2007 COVID-19 Vaccine (2 - 2022- season) 2022 02/08/2022 CKD PHOS USE SMARTSET 43635 05/04/202304/24, 02/19/2021, 10/14/2019, Additional history exists Albumin/Creatinine Ratio 11/20/2023 023, 12/04/2021, 02/20/2021, Additional history exists CKD HGB USE SMARTSET 26238 12/20/202312/19, 12/19/2022, 12/04/2022, Additional history exists O2 [...] encounter Medical Devices Implanted Type Area Manufacturing Technology Analyst Device Identifier Shelf Expiration Date Model / Serial / Lot Mesh Vicryl 6 X 6 Vkm-M - [id number] Implanted:Qty: 1 on 12/01/2006 at [place] [facility] N/A: Pelvis DO NOT USE 08/25/2011 VKM-M / / [id number] Lead Tined Quad 3889-28 - [id number] Implanted:Qty: 1 on 06/29/2013 at [place] [facility] N/A: Back [employer] : NEUROLOGIC PAIN 04/23/2017 3889-28 / / [id number] Generator Ipg Battery 3058 - [id number] Implanted:Qty: 1 on 07/23/2013 at [place] [facility] [employer] : NEUROLOGIC PAIN 11/21/2014 3058 / [id number] / Kit Implant Tined Lead - [id number] Implanted:Qty: 1 on 11/24/2019 by Hugo Minor MD at OR [facility] Back [employer] 09/24/2021 1801 / / [id number] Description:no charge documented as of this encounter Advance Directives Documents on File Type Date Recorded Patient Assembler Knife Expl anation Power of Manager Mobile 06/15/2021 Viki blumr POWER OF FLAME BRAZING MACHINE OPERATOR Latest Code Status on File [...] Relationship Healthcare Agent Relationship Communication Javier Arteaga [facility] R epresentative (appointed verbally by patient or by statute hierarchy) [email or web address] Vikideven Santamaria [facility] Care Repr esentative (appointed verbally by patient or by statute hierarchy) [email or web address] [facility] Repr esentative (appointed verbally by patient or by statute hierarchy) Care Teams Metal Door Assembler Relationship Specialty Start Date End Date Devi Luna DO [address] [place] [address] [place] [address] PCP - General Internal Medicine 11/29/16 documented as of this encounter
--- OUTSIDE RECORDS SUMMARY | 2023-01-22 00:06 | External Medical Summary | Summary of Care ---
Author Name Unknown Organization [facility] Address [address] [place] [address] Phone [phone] Care Team Providers Care Music Director Name Role Phone Devi Luna DO Primary Care Provider [phone] Reason for Visit * Reason Onset Date Comments Appointment 01/07/2023 Encounter Details Date Type Department Care Team (Late st Contact Info) Description 01/07/2023 Telephone [facility], [facility] [address] [place] [address] Services, Scheduling [address] [place] [address] Appointment (/) Allergies Active Allergy Reactions Criticality Noted Date [...] 30 Tablet 11 11/05/2022 Active Nystatin-Triamcinol one 481089-9.1 UNIT/GM-% External Cream (Mycolog) Apply topically to [...] Telephone Encounter - Marga Coulter OSA - 01/07/2023 11:25 AM EST [facility] Engagement Attempt Engagement: Engagement Attempt 1: No data was found Home Information: No data was found Advance Care Planning (ACP): No data was found Has Living Will or Advance Directive: No data was found Anticipated Sub-Program: Focused Care Management (3-9 months) Confirmation of Sub-Program Type (by care body team member): No data was found Handoff Information: Current care team notified via: Epic communication Current telemonitoring equipment: No data was found Called lmom for call back: Stephanie: 01/15 at 1:30pm AP Telemed documented in this encounter Plan of Treatment Upcoming Encounters Date Type Department Care Team (Late st Contact Info) Description 01/08/2023 12:30 PM EST Scheduled Telephone [facility], [facility] [address] [place] [address] Coordinator, [facility] [address] [place] [address] 02/25/2023 4:00 PM EST Office Visit Family Medicine [address] [place] [phone] Denise Ley PA-C [address] [place] [address] [place] [address] 04/07/2023 1:00 PM EST Imaging Radiology [address] 132 [place] [address] 04/21/2023 1:45 PM EST Telemedicine Urology Juan Jon [address] [place] [address] Nolberto Osorio MD [address] [place] [address] 7, Telemed [facility] Urology Ex 132 [place] [address] 05/26/2023 11:00 AM EDT Laboratory Laboratory [address] [place] [phone] [place] [address] 05/27/2023 2:30 PM EDT Office Visit Family Medicine [address] [place] [phone] [address] [place] [address] 06/02/2023 1:00 PM EDT Office Visit Hematology/Oncology [facility] [address] [place] [address] Marnie Rivera MD [address] [place] [address] 12/29/2023 12:55 PM EST Office Visit Urogynecology Brenda Stevenson [address] [place] [address] Shyla Coulter PA-C [address] [place] [address] Nurse Susanna Stevenson [address] [place] [address] Health Maintenance Due Date Last Done Comments Alpha-1 Antitrypsin 1953 DISCUSS TOBACCO CESSATION (REFER TO SMARTSET #3291) 05/22/2017 05/22/2016 DXA Scan 06/19/2019 06/18/2012, 04/26, 03/13/2005, Additional history exists Depression Screening 04/27/2022 04/27/2021 DTaP,Tdap,and Td Vaccines (2 - Td or Tdap) 10/14/2022 10/14/2012, 09/10/2007, 09/10/2007 COVID-19 Vaccine (2 - 2022- season) 2022 02/08/2022 CKD PHOS USE SMARTSET 85536 05/04/202304/24, 02/19/2021, 10/14/2019, Additional history exists Albumin/Creatinine Ratio 11/20/2023 023, 12/04/2021, 02/20/2021, Additional history exists CKD HGB USE SMARTSET 88441 12/20/202312/19, 12/19/2022, 12/04/2022, Additional history exists O2 [...] this encounter Medical Devices Implanted Type Area Ethnology Teacher Device Identifier Shelf Expiration Date Model / Serial / Lot Mesh Vicryl 6 X 6 Vk-M - [id number] [place]planted:Qty[place] 1 [place] 12/01/2006 [place] [facility] [place]: Pelvis DO NOT USE 08/25/2011 VKM-M / / [id number] Lead Tined Quad 3889-28 - [id number] Implanted:Qty: 1 on 06/29/2013 [place] [facility] [place]: Back [employer] : NEUROLOGIC PAIN 04/23/2017 3889-28 / / [id number] Generator Ipg Battery 3058 - [id number] Implanted:Qty: 1 on 07/23/2013 [place] [facility] [place] [employer] : NEUROLOGIC PAIN 11/21/2014 3058 / [id number] / Kit Implant Tined Lead - [id number] Implanted:Qty: 1 on 11/24/2019 by Hugo Minor MD at OR [facility] Back [employer] 09/24/2021 1801 / / [id number] Description:no charge documented as of this encounter Advance Directives Documents on File Type Date Recorded Patient Rn Integrated Expl anation Power of Medical Management Trainer 06/15/2021 Vikidoreen [place] nder POWER OF MUSIC ARRANGER Latest Code Status on File Code Status [...] Relationship Healthcare Agent Relationship Communication Javier Arteaga [facility] Care R epresentative (appointed verbally by patient or by statute hierarchy) [email or web address] Viki Santamaria Adult Child Health Care Repr esentative (appointed verbally by patient or by statute hierarchy) [email or web address] Claude Rose Adult Child [facility] Care Repr esentative (appointed verbally by patient or by statute hierarchy) Care Teams Music Director Relationship Specialty Start Date End Date Devi Luna DO [address] [place] [address] [place] [address] PCP - General Internal Medicine 11/29/16 documented as of this encounter
--- OUTSIDE RECORDS SUMMARY | 2023-01-22 00:06 | External Medical Summary | Summary of Care ---
Author Name Unknown Organization [facility] Address [address] [place] [address] Phone [phone] Care Team Providers Care Pneumatic Tool Repairer Name Role Phone Devi Luna DO Primary Care Provider Reason for Visit * Reason Onset Date Comments [facility]: Engagement 01/08/2023 Encounter Details Date Type Department Care Team (Late st Contact Info) Description 01/08/2023 12:30 PM EST Scheduled Telephone [facility], [facility] [address] [facility] [place] [address] Coordinator, [facility] [address] [facility] [place] [address] Allergies Active Allergy Reactions Criticality Noted Date Comments Ceftriaxone Sodium hives Cisapride Propulsid--vomiting Cisapride 09/23/2017 Iodinated Contrast Media 09/23/2017 Renografin--itching /feet only Penicillins hives Solifenacin Succinate Other (Please comment) 06/17/2008 Blurred vision at 10 mg dose documented as of this encounter (statuses as of 01/08/2023) Medications Medication Sig Dispensed Refills Start Date [...] 30 Tablet 11 11/05/2022 Active Nystatin-Triamcinol one 586861-3.1 UNIT/GM-% External Cream (Mycolog) Apply topically to [...] as of this encounter (statuses as of 01/08/2023) Active Problems Problem Noted Date Diagnosed Date [...] as of this encounter (statuses as of 01/08/2023) Resolved Problems Problem Noted Date Diagnosed Date [...] 37.15 kg/m HTN, goal below 130/80 03/24/2009 12/01 /2014 Dyslipidemia, goal LDL below 100 02/08/2009 05/03/2022 [...] as of this encounter (statuses as of 01/08/2023) Immunizations Name Administration Dates Next Due Covid-19, [...] encounter Miscellaneous Notes * Telephone Encounter - Kierra Cunningham LPN - 01/08/2023 3:46 PM EST [facility] Engagement Attempt Engagement: Engagement Attempt 1: Unable to contact Home Information: No data was found Advance Care Planning (ACP): No data was found Has Living Will or Advance Directive: No data was found Anticipated Sub-Program: Focused Care Management (3-9 months) Confirmation of Sub-Program Type (by care staff nurse icu resource team): No data was found Handoff Information: Current care team notified via: Epic communication Current telemonitoring equipment: No data was found Enrollment call placed to patient, left message on home number for return call to [facility] FC call tomorrow for EC #2 documented in this encounter Plan of Treatment Upcoming Encounters Date Type Department Care Team (Late st Contact Info) Description 01/09/2023 2:00 PM EST Scheduled Telephone [facility], [facility] [address] [facility] [place] [address] Coordinator, [facility] [place] [address] 01/14/2023 11:20 AM EST Office Visit Family [address] [phone] Denise Ley PA-C [address] [place] [address] [place] [address] 02/05/2023 1:00 PM EST Office Visit Cardiology, [facility] [address] [place] [address] Humberto Mercedes DO [address] [place] [address] 02/25/2023 4:00 PM EST Office Visit Family Medicine [address] [place] [phone] Denise Ley PA-C [address] [place] [address] [place] [address] 04/07/2023 1:00 PM EST Imaging [facility] [address] [place] [address] 04/21/2023 1:45 PM EST Telemedicine Urology Vielka NarvaezJuan [address] [place] [address] Nolberto Osorio MD [address] [place] [address] 7, Telemed [facility] Urology Ex Rm [address] [place] [address] 05/26/2023 11:00 AM EDT Laboratory Laboratory [address] [place] [phone] [place] [address] 05/27/2023 2:30 PM EDT Office Visit Family Medicine [address] [place] [phone] [place] [address] 06/02/2023 1:00 PM EDT Office Visit Hematology/Oncology [facility] [address] [place] [address] Marnie Rivera MD [address] [place] [address] 12/29/2023 12:55 PM EST Office Visit Urogynecology [facility] [address] [place] [address] Shyla Coulter PA-C [address] [place] [address] Nurse Susanna Stevenson Rust [address] [place] [address] Health Maintenance Due Date Last Done Comments Alpha-1 Antitrypsin 1953 DISCUSS TOBACCO CESSATION (REFER TO SMARTSET #3291) 05/22/2017 05/22/2016 DXA Scan 06/19/2019 06/18/2012, 04/26, 03/13/2005, Additional history exists Depression Screening 04/27/2022 04/27/2021 DTaP,Tdap,and Td Vaccines (2 - Td or Tdap) 10/14/2022 10/14/2012, 09/10/2007, 09/10/2007 COVID-19 Vaccine ( - 2022- season) 2022 02/08/2022 CKD PHOS USE SMARTSET 01644 05/04/202304/24, 02/19/2021, 10/14/2019, Additional history exists Albumin/Creatinine Ratio 11/20/2023 023, 12/04/2021, 02/20/2021, Additional history exists CKD HGB USE SMARTSET 11466 12/20/202312/19, 12/19/2022, 12/04/2022, Additional history exists O2 [...] this encounter Medical Devices Implanted Type Area Interventional Pain Physician Device Identifier Shelf Expiration Date Model / Serial / Lot Mesh Vicryl 6 X 6 Vkm-M - [id number] [place] [facility] [place] Pelvis DO NOT USE 08/25/2011 VKM-M / / [id number] Lead Tined Quad 3889-28 - [id number] Implanted:Qty: 1 on 06[place]29/2013 [place] [facility] [place]: Back [employer] : NEUROLOGIC PAIN 04/23/2017 3889-28 / / [id number] Generator Ipg Battery 3058 - [id number] Implanted:Qty: 1 on 07/23/2013 [place] [facility] [place] [employer] : NEUROLOGIC PAIN 11/21/2014 3058 / [id number] / Kit Implant Tined Lead - [id number] Implanted:Qty: 1 on 11/24/2019 by Hugo Minor MD at OR [facility] Back [employer] 09/24/2021 1801 / / [id number] Description:no charge documented as of this encounter Advance Directives Documents on File Type Date Recorded Patient Pattern Keeper Expl anation Power of Skid Road Worker 06/15/2021 Viki [place] nder POWER OF DEMAND MANAGER Latest Code Status on File Code [...] Relationship Healthcare Agent Relationship Communication Javier Arteaga [facility] R epresentative (appointed verbally by patient or by statute hierarchy) [email or web address] Viki Santamaria [facility] Care Repr esentative (appointed verbally by patient or by statute hierarchy) [email or web address] [facility] Repr esentative (appointed verbally by patient or by statute hierarchy) Care Teams Pneumatic Tool Repairer Relationship Specialty Start Date End Date Devi Luna DO [address] [place] [address] [place] [address] PCP - General Internal Medicine 11/29/16 documented as of this encounter
--- OUTSIDE RECORDS SUMMARY | 2023-01-22 00:07 | External Medical Summary | Summary of Care ---
Author Name Unknown Organization [facility] Address [address] [place] [address] Phone [phone] Care Team Providers Care Classifications Officer Cc/Cm Name Role Phone Devi Luna DO Primary Care Provider Encounter Details Date Type Department Care Team (Late st Contact Info) Description 10/10/2022 Population Health External Data Unspecified Department Allergies Active Allergy Reactions Criticality Noted Date Comments Ceftriaxone Sodium hives Cisapride Propulsid--vomiting Cisapride 09/23/2017 Iodinated Contrast Media 09/23/2017 Renografin--itching /feet only Penicillins hives Solifenacin Succinate Other (Please comment) 06/17/2008 Blurred vision at 10 mg dose documented as of this encounter (statuses as of 01/06/2023) Medications Medication Sig Dispensed Refills Start Date End Date Status VITAMIN D 1000 UNIT PO CAPSIndications:Vitam in D deficiency 1 capsule daily 1 Cap [...] 0 Active lamoTRIgine 25 MG Oral Tablet (LaMICtal)Indications :Bipolar 2 disorder (HCC),Current mild episode of major depressive disorder without prior episode (HCC) Take 1 Tablet by mouth in the morning. 90 Tablet 1 07/09/2022 Active Donepezil HCl 5 MG Oral Tablet (Aricept) Take 1 Tablet by mouth in the morning. Take with largest meal of the day.. 30 Tablet 5 09/24/2022 Active traMADol HCl 50 MG Oral Tablet (Ultram)Indications:C hronic left shoulder pain Take 1 Tablet by mouth every 8 hours as needed for Pain, Severe. 30 Tablet 0 09/30/2022 Active risperiDONE 0.5 MG Oral Tablet (RisperDAL) Take 1 Tablet by mouth in the morning and 1 Tablet before bedtime. 60 Tablet 5 09/30/2022 Active documented as of this encounter (statuses as of 01/06/2023) Active Problems Problem Noted Date Diagnosed Date [...] as of this encounter (statuses as of 01/06/2023) Resolved Problems Problem Noted Date Diagnosed Date [...] as of this encounter (statuses as of 01/06/2023) Immunizations Name Administration Dates Next Due Covid-19, [...] 4:00 PM EST Office Visit Family Medicine [address] [place] [phone] Denise Ley PA-C [address] [place] [address] [place] [address] 04/07/2023 1:00 PM EST Imaging Radiology [address] [place] [address] 04/21/2023 1:45 PM EST Telemedicine Urology Juan Jon [address] [place] [address] Nolberto Osorio MD [address] [place] [address] 7, Telemed [facility] Urology Ex [address] [place] [address] 05/26/2023 11:00 AM EDT Laboratory Laboratory [address] [place] [phone] [place] [address] 05/27/2023 2:30 PM EDT Office Visit Family Medicine [address] [place] [phone] Devi Luna[address] [place] [address] 06/02/2023 1:00 PM EDT Office Visit Hematology/Oncology [facility] [address] [place] [address] Marnie Rivera MD [address] [place] [address] 12/29/2023 12:55 PM EST Office Visit Urogynecology Brenda Stevenson [address] [place] [address] Shyla Coulter PA-C [address] [place] [address] Nurse Susanna Stevenson [address] [place] [address] Health Maintenance Due Date Last Done Comments Alpha-1 Antitrypsin 1953 DISCUSS TOBACCO CESSATION (REFER TO SMARTSET #3291) 05/22/2017 05/22/2016 DXA Scan 06/19/2019 06/18/2012, 04/26, 03/13/2005, Additional history exists Depression Screening 04/27/2022 04/27/2021 DTaP,Tdap,and Td Vaccines (2 - Td or Tdap) 10/14/2022 10/14/2012, 09/10/2007, 09/10/2007 COVID-19 Vaccine (2 - 2022- season) 2022 02/08/2022 CKD PHOS USE SMARTSET 62946 05/04/2023 03/, 02/19/2021, 10/14/2019, Additional history exists Albumin/Creatinine Ratio 11/20/2023 023, 12/04/2021, 02/20/2021, Additional history exists CKD HGB USE SMARTSET 23222 12/20/202312/19, 12/19/2022, 12/04/2022, Additional history exists O2 [...] this encounter Medical Devices Implanted Type Area Procedures Tech Device Identifier Shelf Expiration Date Model / Serial / Lot Mesh Vicryl 6 X 6 Vkm-M - [id number] Implanted:Qty: 1 on 12/01/2006 at [place] [facility] [place] N/A: Pelvis DO NOT USE 08/25/2011 VKM-M / / [id number] Lead Tined Quad 3889-28 - [id number] Implanted:Qty: 1 on 06/29/2013 at [place] [facility] [place] N/A: Back [employer] : NEUROLOGIC PAIN 04/23/2017 3889-28 / / [id number] Generator Ipg Battery 3058 - [id number] Implanted:Qty: 1 on 07/23/2013 at [place] [facility] [place] [employer] : NEUROLOGIC PAIN 11/21/2014 3058 / [id number] / Kit Implant Tined Lead - [id number] Implanted:Qty: 1 on 11/24/2019 by Hugo Minor MD at OR [facility] Back [employer] 09/24/2021 1801 / / [id number] Description:no charge documented as of this encounter Advance Directives Documents on File Type Date Recorded Patient Zipper Cutter Expl anation Power of Shipper 06/15/2021 Viki [place] nder POWER OF CIRCUIT BOARD REPAIR TECHNICIAN Latest Code Status on File Code [...] Relationship Healthcare Agent Relationship Communication Javier Arteaga [facility] R epresentative (appointed verbally by patient or by statute hierarchy) [email or web address] Viki [facility] Repr esentative (appointed verbally by patient or by statute hierarchy) [email or web address] [facility] Repr esentative (appointed verbally by patient or by statute hierarchy) Care Teams Classifications Officer Cc/Cm Relationship Specialty Start Date End Date Devi Luna DO [address] [place] [address] [place] [address] PCP - General Internal Medicine 11/29/16 documented as of this encounter
[2023-01-22] MEDS: NYSTATIN/TRIAMCIN CR 15 GM TUBE EXT SCH ×4 (02:43→21:58)
[2023-01-22 05:06] LABS: Appearance Urine Clear (Clear); Bilirubin Urine Negative (Negative); Blood Urine Negative (Negative); Color Urine Yellow; Glucose Urine UA Negative (Negative); Ketones Urine Negative (Negative); Leukocyte Esterase Urine Negative (Negative); Nitrite Urine Negative (Negative); Protein Urine Negative (Negative); Specific Gravity Urine 1.023 (1.000-1.030); Urobilinogen Urine Negative (Negative)
[2023-01-22] MEDS: guaiFENesin 600 MG TABCR PO SCH ×2 (05:59→18:30)
[2023-01-22] MEDS: ACETAMINOPHEN 500 MG TAB PO SCH ×3 (05:59→21:58)
--- NOTE | 2023-01-22 07:50 | XRay Report ---
XR chest 1V portable CLINICAL HISTORY: Congestive heart failure. COMPARISON STUDY: Chest CT April 17, 2021 chest radiograph January 21, 2023. FINDINGS: Incidental note is made of an acute displaced proximal left humeral fracture, as shown on p rior radiographs. There is a small left pleural effusion. No pneumothorax is present. There is modera te cardiomegaly. Pulmonary vascular congestion with mild interstitial thickening is noted. There may be minimal patchy right midlung opacity. This probably reflects summation artifact. IMPRESSION: 1. Cardiomegaly with mild interstitial pulmonary edema. Small left pleural effusion. No pneumothorax. 2. Acute displaced proximal left humeral fracture. ACT 112: Negative or not required by law. Electronically signed by: Heraclio Suarez M.D. 01/22/2023 7:49 AM
--- NOTE | 2023-01-22 08:33 | Cardiology Consultation ---
Date of Consultation January 22, 2023 Assessment & Plan (1) Preop cardiovascular exam: (2) Hypertension: (3) Chronic heart failure with preserved ejection fraction: (4) Anemia: Plan 87-year-old female presents with mechanical fall and left humeral fracture. Moderate perioperative risk from a cardiovascular perspective. Appears compensated/euvolemic. Blood pressure well-controlled. No recent anginal symptoms. ECG without ischemic changes. Review of bedside echocardiogram demonstrates preserved LV systolic function without significant valvular pathology. There is no contraindication to orthopedic surgery from a cardiovascular, however, anemia should be addressed by primary service. No further cardiac testing or intervention would lower her perioperative risk for noncardiac surgery at this time. Acute on chronic anemia noted on admission with Hgb 7.0gm/dl. Follow H&H. Consider transfusion to maintain hemoglobin greater than 8.0gm/dL prior to surgery. History of Present Illness Reason for Consultation: Preoperative cardiovascular evaluation Requesting Physician: Dr. Vasquez Attending Physician: Ray Sorensen MD History of Present Illness 87-year-old female with a history of COPD, peripheral vascular disease, tobacco abuse presented to the emergency department after mechanical fall at home. Found to have moderately displaced comminuted fracture of the left humerus. Patient seen examined at bedside. Notes left arm discomfort. Denies chest pain or shortness of breath. No orthopnea, PND, or lower extremity edema. ECG without ischemic changes. Preliminary review of bedside echocardiogram demonstrates preserved LV systolic function without significant valvular pathology. Recent hospitalization secondary to respiratory insufficiency secondary to COPD exacerbation, possibly mild heart failure with preserved ejection fraction. Allergies Allergy/AdvReac Type Severity Reaction Status Date / Time ceftriaxone Allergy Intermediate hives Verified 10/06/22 20:25 Iodinated Contrast Media Allergy Intermediate pruritus Verified 10/06/22 20:25 (feet) Penicillins Allergy Intermediate hives Verified 10/06/22 20:25 cisapride AdvReac Intermediate GI symptoms Verified 10/06/22 20:25 solifenacin AdvReac Intermediate blurred Verified 10/06/22 20:25 vision Home Medications Medication Instructions Recorded Confirmed Type donepezil 5 mg tablet 5 mg PO QAM 01/04/23 01/21/23 History folic acid 1 mg tablet 1 mg PO QAM 01/04/23 01/21/23 History lamotrigine 25 mg tablet 25 mg PO QAM 01/04/23 01/21/23 History mirabegron 50 mg tablet,extended 50 mg PO QAM 01/04/23 01/21/23 History release 24 hr (Myrbetriq) risperidone 0.5 mg tablet 0.5 mg PO BID 01/04/23 01/21/23 History sertraline 50 mg tablet 50 mg PO DAILY 01/04/23 01/21/23 History tramadol 50 mg tablet 50 mg PO TID PRN Pain 01/04/23 01/21/23 History furosemide 20 mg tablet 20 mg PO QAM #30 tabs 01/13/23 01/21/23 Rx spironolactone 25 mg tablet 12.5 mg (1/2 x 25 mg) PO DAILY #30 01/13/23 01/21/23 Rx tabs famotidine 20 mg tablet 20 mg PO DAILY 01/21/23 01/21/23 History nystatin-triamcinolone 100,000 1 applic topical TID 01/21/23 01/21/23 History unit/g-0.1 % topical cream triamterene 37.5 1 tab PO QAM 01/21/23 01/21/23 History mg-hydrochlorothiazide 25 mg tablet Patient History Medical History COPD (chronic obstructive pulmonary disease) Ambulatory dysfunction OAB (overactive bladder) s/p nerve stimulator Bipolar disorder Osteoarthritis Degenerative disc disease Chronic back pain Depression GERD (gastroesophageal reflux disease) CKD (chronic kidney disease) stage 3, GFR 30-59 ml/min Hyperlipidemia Hypertension Surgical History History of arthroplasty of left knee H/O vaginal hysterectomy History of arthroplasty of right knee H/O bladder repair surgery "vaginal sling procedure for stress incontinence 11/2006 " History of carpal tunnel surgery "Right" History of appendectomy History of tonsillectomy and adenoidectomy Family History Father Family hx of colon cancer Brother Family history of diabetes mellitus Sister Family history of diabetes mellitus Social History Smoking Status: Former smoker Tobacco Type: Cigarettes Cigarettes Per Day: 7-9; Second Hand Exposure: No; Do You Dip or Chew Tobacco: No; Hx Alcohol Use: No Hx Substance Use: No Preferred Language: [place]se Communication Ability: Effective Ethnic Studies Professor Required: No Beliefs That Will Affect Care: None marital status: Current Living Situation: Spouse Feels Safe at Home: Yes Assistive Devices: Cane and Walker Review of Systems Review of Systems: All systems reviewed & are unremarkable except as noted in Subjective Physical Exam Constitutional: well nourished; no acute distress Respiratory: no respiratory distress, no labored breathing and no retractions Auscultation: + diminished lung sounds; no crackles, no rales and no wheezes Cardiovascular: Rate/Rhythm: regular rate and regular rhythm Heart Sounds: normal S1, normal S2 and + murmur (1/6 early peaking systolic ejection murmur heard best at the base) Vessels: radial pulses present; no JVD and no carotid bruit Extremities: no edema Gastrointestinal (Abdomen): Inspection/Auscultation: abdomen not distended Percussion/Palpation: abdomen soft; no guarding and abdomen not rigid Neurologic: CN's II-XI intact bilaterally and moves all extremities; no focal motor deficits Results & Data Vital Signs (Past 12 Hours) Vital Signs Pulse Pulse Resp BP BP Pulse Ox O2 Del Method 01/22/23 07:13 80 01/22/23 06:55 81 18 96/47 L 97 Room Air 01/22/23 06:00 87 18 98 01/22/23 05:00 84 19 96 01/22/23 04:27 86 01/22/23 04:00 84 18 97 01/22/23 03:59 82 18 96 01/22/23 03:59 108/56 L 01/22/23 03:00 80 19 98 01/22/23 02:00 79 17 98 01/22/23 01:01 136/62 01/22/23 01:01 82 23 99 01/22/23 01:00 84 30 H 98 01/22/23 00:00 76 20 01/21/23 23:00 81 22 100 01/21/23 22:40 81 21 103/57 L 99 Nasal Cannula 01/21/23 22:19 88 L Room Air 01/21/23 22:19 88 L Room Air 01/21/23 22:00 103/57 L 01/21/23 22:00 86 20 93 01/21/23 21:00 87 22 91 01/21/23 21:00 113/67 O2 Flow Rate 01/22/23 07:13 01/22/23 06:55 01/22/23 06:00 01/22/23 05:00 01/22/23 04:27 01/22/23 04:00 01/22/23 03:59 01/22/23 03:59 01/22/23 03:00 01/22/23 02:00 01/22/23 01:01 01/22/23 01:01 01/22/23 01:00 01/22/23 00:00 01/21/23 23:00 01/21/23 22:40 2 01/21/23 22:19 01/21/23 22:19 01/21/23 22:00 01/21/23 22:00 01/21/23 21:00 01/21/23 21:00 Laboratory Results Cardiac Enzymes 01/21/23 Range/Units 18:43 AST 13 (13-39) U/L B-Natriuretic Peptide 231 H (0-100) pg/ml Coagulation 01/21/23 Range/Units 18:43 B-Natriuretic Peptide 231 H (0-100) pg/ml CBC 01/21/23 01/22/23 01/22/23 Range/Units 18:43 09:35 10:59 WBC 10.98 H 5.25 (4.8-10.8) K/ul RBC 3.06 L 2.34 L (4.20-5.40) M/uL Hgb 9.0 L 7.0 L Cancelled (12.0-16.0) g/dl Hct 30.1 L 23.2 L Cancelled (37.0-47.0) % Plt Count 280 229 (130-400) K/uL Neut # (Auto) 9.36 H (1.40-6.50) K/uL Lymph # (Auto) 0.70 L (1.20-3.40) K/uL Nicholas # (Auto) 0.85 H (0.11-0.59) K/uL Eos # (Auto) 0.02 (0.00-0.50) K/uL Baso # (Auto) 0.01 (0.00-0.20) K/uL Comprehensive Metabolic Panel 01/21/23 01/22/23 Range/Units 18:43 09:35 Sodium 140 141 (136-145) mmol/L Potassium 3.9 4.3 (3.5-5.1) mmol/L Chloride 105 107 (98-107) mmol/L Carbon Dioxide 27 29 (21-32) mmol/L BUN 18 18 (6-23) mg/dl Creatinine 0.83 0.76 (0.6-1.2) mg/dl Glucose 139 H 111 H (70-99(Fasting)) mg/dl Calcium 9.7 9.4 (8.6-10.3) mg/dl AST 13 (13-39) U/L ALT 11 (7-52) U/L Alkaline Phosphatase 82 (34-104) U/L Total Protein 6.2 (6.0-8.3) gm/dl Albumin 3.3 L (3.4-5.0) gm/dl Intake and Output 01/21/23 01/22/23 01/22/23 22:59 06:59 14:59 Intake Total 120 / 120 0 / 0 Output Total 250 / 250 Balance 120 / -130 -250 / -130 0 / 0 Intake: Oral 120 / 120 Intake (Blood Product) Amt 0 / 0 Packed Cells, Leukoreduced 0 / 0 Unit [id number] Output: Urine 250 / 250 Other: Weight 85.1 kg Weight Measurement Method Built in [facility] ECG Additional Comments: ECG: Normal sinus rhythm, normal ECG (2) Hypertension Hypertension type: primary hypertension Qualified Code(s): I10 - Essential (primary) hypertension (4) Anemia Anemia type: unspecified type Qualified Code(s): D64.9 - Anemia, unspecified
[2023-01-22] MEDS: VIBEGRON 75 MG TAB PO SCH (08:40)
[2023-01-22] MEDS: FOLIC ACID 1 MG TAB PO SCH (08:41)
[2023-01-22] MEDS: SERTRALINE HCL 50 MG TABLET PO SCH (08:41)
[2023-01-22] MEDS: lamoTRIgine 25 MG TAB PO SCH (08:41)
[2023-01-22] MEDS: FUROSEMIDE 20 MG TAB PO SCH (08:41)
[2023-01-22] MEDS: SPIRONOLACTONE 12.5 MG TAB PO SCH (08:41)
[2023-01-22] MEDS: risperiDONE 0.5 MG TABLET PO SCH ×2 (08:41→21:58)
[2023-01-22] MEDS: DONEPEZIL HCL 5 MG TAB PO SCH (08:41)
[2023-01-22] MEDS: FAMOTIDINE 20 MG TAB PO SCH (08:41)
[2023-01-22 10:05] LABS: Hematocrit (blood only) 23.2 % (37.0-47.0); Mean Corpuscular Hemoglobin 29.9 pg (25.0-34.0); Mean Corpuscular Hgb Conc 30.2 g/dL (32.0-36.0); Mean Corpuscular Volume 99.1 fL (80.0-100.0); Mean Platelet Volume 10.3 fL (9.4-12.4); Platelet Count 229 K/uL (130-400); RDW Coefficient of Variation 18.7 % (11.5-14.5); RDW Standard Deviation 66.8 fL (36.4-46.3); Red Blood Count 2.34 M/uL (4.20-5.40); White Blood Count 5.25 K/ul (4.8-10.8)
[2023-01-22 10:27] LABS: BUN Creatinine Ratio 23.7 (10-20); Calcium 9.4 mg/dl (8.6-10.3); Creatinine Clr Calc Pharmacy 60.7 ml/min; Est GFR (African American) 82.3 ml/min; Magnesium 2.2 mg/dl (1.7-2.4); Phosphorus 3.7 mg/dl (2.5-4.9); Potassium 4.3 mmol/L (3.5-5.1)
--- NOTE | 2023-01-22 11:23 | Orthopedic Progress Note ---
Date of Service January 22, 2023 Assessment & Plan (1) Left humeral fracture: At this point, from an orthopedics standpoint we would like to proceed with ORIF of her left proximal humerus fracture. Risk, benefits, and alternatives to surgical intervention were discussed with the patient and her family and its entirely with ample amount of time for the patient and family to ask questions. All questions were answered to the patient's satisfaction and she wishes to proceed with surgical intervention. We are currently awaiting cardiology and internal medicine to provide medical clearance for this patient to proceed with surgery. If patient is able to get cleared today, we would like to proceed this afternoon with surgical intervention. We will wait to hear from both cardiology and internal medicine to proceed. Subjective . Debra was evaluated at bedside today resting comfortably in bed with notable discomfort to the left shoulder region. She is currently being medically evaluated to proceed with surgery today to fix her left proximal humerus fracture. Cardiology and internal medicine currently running tests to clear her medically. She would like to proceed with surgery if medically cleared. She denies any other concerns today. Review of Systems All systems reviewed & are unremarkable except as noted in HPI & below. Physical Exam .Physical examination was a pleasant elderly frail left female. I does not look in optimal health. Examination of the left shoulder and arm reveals no obvious deformity. She does have palpable discomfort of the left upper arm and shoulder area. She can flex extend her fingers and wrist appropriately. She got pain with any type of elbow and arm motion. She is neurologically intact. Results & Data Results & Data Laboratory Results . Diagnostic Findings . PG Care Time/CCT Total # of Minutes Spent Total Time Spent with Patient: Total time spent is greater than 50% in coordination of care (as documented) at patient's floor/unit and/or counseling patient: Coding Level of Care Code 68417 SUB INP/OBS CARE 03/20MIN Diagnoses Left humeral fracture S42.302A
[2023-01-22] MEDS ORDERED: SODIUM CHLORIDE 0.9% 250 ML IV PRN ×2 (11:53→21:14)
--- NOTE | 2023-01-22 11:55 | Hospitalist Progress Note ---
Date of Service January 22, 2023 Assessment & Plan (1) Left humeral fracture: (2) Ambulatory dysfunction: (3) (HFpEF) heart failure with preserved ejection fraction: (4) Hypertension: (5) Hyperlipidemia: (6) COPD (chronic obstructive pulmonary disease): (7) CKD (chronic kidney disease) stage 3, GFR 30-59 ml/min: (8) Bipolar disorder: (9) Renal mass, left: (10) Depression: Plan This is an 87yo F with a PMH of COPD, peripheral vascular disease, hypertension, HFpEF, esophageal dysmotility, CKD 3, Alzheimer's dementia, bipolar 2 disorder, depression, tobacco use and other medical problems listed below presents after mechanical fall at home today and found to have an acute moderately displaced comminuted fracture of the neck and proximal shaft of the left humerus. Mechanical fall Acute displaced L humerus fracture Missed a step while ambulating with walker earlier today and fell onto left side Head CT without acute intracranial findings, cervical spine CT without cervical fracture or subluxation Left shoulder XR with acute moderately displaced comminuted fracture of the neck and proximal shaft of the left humerus Evaluated in ED by Dr. Bradshaw, who placed LUE in a sling and swath. Would likely benefit from surgical mgmt if medically appropriate given complex comorbidities Keep the head of the bed elevated is much as possible, pain control, NPO @ [place] Plan for surgical repair today (01/22/2023) Hgb 7.0 this AM (down from 9 on admission yesterday). Stat H&H ordered and consent for blood transfusion signed. Plan to transfuse 1 unit of pRBC. Surgical PA notified. Cardiology was also consulted for management - echo obtained this AM. HFpEF CXR on admission with cardiomegaly with pulmonary vascular congestion. Suspect small pleural effusions Admitted a few weeks ago for resp failure in setting of CHF and possible PNA 2D echo from Jan 04, 2023 shows EF 60-65%, grade 1 diastolic dysfunction, moderate mitral annular calcification, pulmonary HTN Was optimized by cardiology during previous admission and discharged on 12.5 mg spironolactone and 20mg Lasix States BLE edema is close to baseline, denies any CP, palpitations or SOB. Currently saturating on room air at 92% Routine cardiology consult for possible pre-op clearance given medically complex and recent admission for CHF Repeat CXR in AM, continue home diuretics for now Repeat CXR today - essentially unchanged Echo obtained this AM by cardiology History of COPD Ongoing tobacco abuse Continue home inhalers, Duonebs QID PRN SOB or wheezing Adding guaifenesin, flutter valve Smoking cessation CKD stage III Cr at baseline ~0.8. Continue monitoring with daily BMP History of left renal mass Mass 2.8 cm. Under observation by urology Anemia Hgb 9 on admission (improved from previous). Monitor with daily CBC Hgb 7.0 this AM - (down from 9 on admission yesterday). Stat H&H ordered and consent for blood transfusion signed. Plan to transfuse 1 unit of pRBC. Surgical PA notified. Cont. to closely monitor Bipolar disorder history of depression History of late onset Alzheimer's dementia with agitation Continue home meds of donepezil, Lamictal, risperidone and Zoloft Urinary incontinence Continue Myrbetriq DVT Ppx: SCDs for now Code status: no intubation but okay for CPR as per discussion with the family on admission - may be changed periop PCP: Dr. Luna Dispo: Admitting to [facility] tele Daughter Rody updated over the phone (she and brother Claude have POA). Would appreciate updates by phone: [phone] Admission and Anticipated Discharge Date Admission Date: January 21, 2023 Subjective Pt seen in follow up of left humeral fx, recently admitted for hypoxic resp. failure, has hx of COPD and CHF Currently laying in bed in NAD, her left arm is in a sling Denies any fevers chills chest pain palpitations shortness of breath. Denies any abdominal pain nausea vomiting. Patient's and daughter present at the bedside. Daughter states that she is medical POA and has all the paperwork with her. Consented patient for possible blood transfusion. Pt seen by cardiology and echo obtained for surgical pre-op assessment. Review of Systems Review of Systems: All systems reviewed & are unremarkable except as noted in Subjective Physical Exam Constitutional: WD/WN, vitals as above Eyes: PERRL, conjunctivae normal, anicteric sclerae ENMT: external ear and nose normal, oropharynx normal Neck: normal visual inspection Respiratory: normal respiratory effort (+ rhonchi, no wheezing) Cardiovascular: Rate/Rhythm: regular rate and regular rhythm + LE edema +1 b/l Chest (Breasts): Chest: normal inspection of chest Gastrointestinal (Abdomen): normal bowel sounds, soft, nontender, no hepatosplenomegaly Musculoskeletal: Extremities: extremities normal to inspection (moves extremities except L arm d/t pain, L arm in a sling) Skin: no rashes, warm and dry Neurologic: PERRL, EOMI, accommodation nl, no face palsy, no dysarthria Psychiatric: A+Ox3, euthymic affect Results & Data Results & Data Vital Signs (Past 12 Hours) Vital Signs Pulse Pulse Resp BP BP Pulse Ox O2 Del Method 01/22/23 07:13 80 01/22/23 06:55 81 18 96/47 L 97 Room Air 01/22/23 06:00 87 18 98 01/22/23 05:00 84 19 96 01/22/23 04:27 86 01/22/23 04:00 84 18 97 01/22/23 03:59 82 18 96 01/22/23 03:59 108/56 L 01/22/23 03:00 80 19 98 01/22/23 02:00 79 17 98 01/22/23 01:01 136/62 01/22/23 01:01 82 23 99 01/22/23 01:00 84 30 H 98 01/22/23 00:00 76 20 Laboratory Results 01/22/23 01/22/23 01/22/23 Range/Units Unknown 10:59 09:35 WBC 5.25 (4.8-10.8) K/ul RBC 2.34 L (4.20-5.40) M/uL Hgb Cancelled 7.0 L (12.0-16.0) g/dl Hct Cancelled 23.2 L (37.0-47.0) % MCV 99.1 (80.0-100.0) fL MCH 29.9 (25.0-34.0) pg MCHC 30.2 L (32.0-36.0) g/dL RDW Std Deviation 66.8 H (36.4-46.3) fL RDW Coeff of Ami 18.7 H (11.5-14.5) % Plt Count 229 (130-400) K/uL MPV 10.3 (9.4-12.4) fL Immature Gran % (Auto) % Neut % (Auto) % Lymph % (Auto) % Lynn % (Auto) % Eos % (Auto) % Baso % (Auto) % Neut # (Auto) (1.40-6.50) K/uL Lymph # (Auto) (1.20-3.40) K/uL Lynn # (Auto) (0.11-0.59) K/uL Eos # (Auto) (0.00-0.50) K/uL Baso # (Auto) (0.00-0.20) K/uL Immature Gran # (Auto) (0.01-0.20) K/uL Sodium 141 (136-145) mmol/L Potassium 4.3 (3.5-5.1) mmol/L Chloride 107 (98-107) mmol/L Carbon Dioxide 29 (21-32) mmol/L Anion Gap 5 (3-11) BUN 18 (6-23) mg/dl Creatinine 0.76 (0.6-1.2) mg/dl Est Cr Clr Drug Dosing 60.7 ml/min Est GFR ( Amer) 82.3 ml/min Est GFR (Non-Af Amer) 71.0 ml/min BUN/Creatinine Ratio 23.7 H (10-20) Glucose 111 H (70-99(Fasting)) mg/dl Calcium 9.4 (8.6-10.3) mg/dl Phosphorus 3.7 (2.5-4.9) mg/dl Magnesium 2.2 (1.7-2.4) mg/dl Total Bilirubin (0.2-1.0) mg/dl AST (13-39) U/L ALT (7-52) U/L Alkaline Phosphatase (34-104) U/L B-Natriuretic Peptide (0-100) pg/ml Total Protein (6.0-8.3) gm/dl Albumin (3.4-5.0) gm/dl Globulin (2.5-4.0) gm/dl Albumin/Globulin Ratio (0.9-2) Urine Color Yellow Urine Appearance Clear (Clear) Urine pH 5.0 (4.5-7.5) Ur Specific [place] 1.023 (1.000-1.030) Urine Protein Negative (Negative) Urine Glucose (UA) Negative (Negative) Urine Ketones Negative (Negative) Urine Blood Negative (Negative) Urine Nitrite Negative (Negative) Urine Bilirubin Negative (Negative) Urine Urobilinogen Negative (Negative) Ur Leukocyte Esterase Negative (Negative) Blood Type Antibody Screen 01/21/23 01/21/23 Range/Units 21:33 18:43 WBC 10.98 H (4.8-10.8) K/ul RBC 3.06 L (4.20-5.40) M/uL Hgb 9.0 L (12.0-16.0) g/dl Hct 30.1 L (37.0-47.0) % MCV 98.4 (80.0-100.0) fL MCH 29.4 (25.0-34.0) pg MCHC 29.9 L (32.0-36.0) g/dL RDW Std Deviation 68.0 H (36.4-46.3) fL RDW Coeff of Ami 18.6 H (11.5-14.5) % Plt Count 280 (130-400) K/uL MPV 10.7 (9.4-12.4) fL Immature Gran % (Auto) 0.4 % Neut % (Auto) 85.2 % Lymph % (Auto) 6.4 % Lynn % (Auto) 7.7 % Eos % (Auto) 0.2 % Baso % (Auto) 0.1 % Neut # (Auto) 9.36 H (1.40-6.50) K/uL Lymph # (Auto) 0.70 L (1.20-3.40) K/uL Lynn # (Auto) 0.85 H (0.11-0.59) K/uL Eos # (Auto) 0.02 (0.00-0.50) K/uL Baso # (Auto) 0.01 (0.00-0.20) K/uL Immature Gran # (Auto) 0.04 (0.01-0.20) K/uL Sodium 140 (136-145) mmol/L Potassium 3.9 (3.5-5.1) mmol/L Chloride 105 (98-107) mmol/L Carbon Dioxide 27 (21-32) mmol/L Anion Gap 8 (3-11) BUN 18 (6-23) mg/dl Creatinine 0.83 (0.6-1.2) mg/dl Est Cr Clr Drug Dosing 55.6 ml/min Est GFR ( Amer) 74.0 ml/min Est GFR (Non-Af Amer) 63.9 ml/min BUN/Creatinine Ratio 21.7 H (10-20) Glucose 139 H (70-99(Fasting)) mg/dl Calcium 9.7 (8.6-10.3) mg/dl Phosphorus 3.6 (2.5-4.9) mg/dl Magnesium 2.2 (1.7-2.4) mg/dl Total Bilirubin 0.3 (0.2-1.0) mg/dl AST 13 (13-39) U/L ALT 11 (7-52) U/L Alkaline Phosphatase 82 (34-104) U/L B-Natriuretic Peptide 231 H (0-100) pg/ml Total Protein 6.2 (6.0-8.3) gm/dl Albumin 3.3 L (3.4-5.0) gm/dl Globulin 2.9 (2.5-4.0) gm/dl Albumin/Globulin Ratio 1.1 (0.9-2) Urine Color Urine Appearance (Clear) Urine pH (4.5-7.5) Ur Specific [place] (1.000-1.030) Urine Protein (Negative) Urine Glucose (UA) (Negative) Urine Ketones (Negative) Urine Blood (Negative) Urine Nitrite (Negative) Urine Bilirubin (Negative) Urine Urobilinogen (Negative) Ur Leukocyte Esterase (Negative) Blood Type O Positive Antibody Screen NEGATIVE Medications Administered Current Inpatient Medications Acetaminophen (Acetaminophen 500 Mg Tab) 1,000 mg PO Q8H [facility] Stop: 02/20/23 20:59 Last Admin: 01/22/23 05:59 Dose: 1,000 mg Albuterol (Albut/Ipratrop 3mg/0.5mg Neb 3 Ml Vial) 3 ml NEB QIDR PRN; Protocol PRN Reason: Shortness Of Breath Or Wheezing Stop: 02/20/23 18:59 Donepezil HCl (Donepezil Hcl 5 Mg Tab) 5 mg PO QAM YUKI Stop: 02/21/23 08:59 Last Admin: 01/22/23 08:41 Dose: 5 mg Famotidine (Famotidine 20 Mg Tab) 20 mg PO DAILY YUKI Stop: 02/21/23 08:59 Last Admin: 01/22/23 08:41 Dose: 20 mg Folic Acid (Folic Acid 1 Mg Tab) 1 mg PO QAM YUKI Stop: 02/21/23 08:59 Last Admin: 01/22/23 08:41 Dose: 1 mg Furosemide (Furosemide 20 Mg Tab) 20 mg PO QAM YUKI Stop: 02/21/23 08:59 Last Admin: 01/22/23 08:41 Dose: 20 mg Guaifenesin (Guaifenesin 600 Mg Tabcr) 600 mg PO Q12H YUKI Stop: 02/20/23 17:59 Last Admin: 01/22/23 05:59 Dose: 600 mg Lamotrigine (Lamotrigine 25 Mg Tab) 25 mg PO QAM YUKI Stop: 02/21/23 08:59 Last Admin: 01/22/23 08:41 Dose: 25 mg Nystatin/Triamcinolone Acetonide (Nystatin/Triamcin Cr 15 Gm Tube) 1 appln EXT TID YUKI Stop: 02/20/23 20:59 Last Admin: 01/22/23 08:46 Dose: Not Given Ondansetron HCl (Ondansetron Inj 2 Mg/Ml 2 Ml Vial) 4 mg IV Q6H PRN PRN Reason: Nausea Stop: 02/20/23 20:28 Polyethylene Glycol (Polyethylene (Miralax) 17 Gm Pack) 17 gm PO DAILY PRN PRN Reason: Constipation Stop: 02/20/23 20:28 Risperidone (Risperidone 0.5 Mg Tablet) 0.5 mg PO BID YUKI Stop: 02/20/23 20:59 Last Admin: 01/22/23 08:41 Dose: 0.5 mg Sertraline HCl (Sertraline Hcl 50 Mg Tablet) 50 mg PO DAILY YUKI Stop: 02/21/23 08:59 Last Admin: 01/22/23 08:41 Dose: 50 mg Spironolactone (Spironolactone 12.5 Mg Tab) 12.5 mg PO DAILY YUKI Stop: 02/21/23 08:59 Last Admin: 01/22/23 08:41 Dose: 12.5 mg Tramadol HCl (Tramadol Hcl 50 Mg Tablet) 50 mg PO TID PRN PRN Reason: Pain Stop: 02/20/23 20:28 Vibegron (Vibegron 75 Mg Tab) 75 mg PO DAILY YUKI Stop: 02/21/23 08:59 Last Admin: 01/22/23 08:40 Dose: 75 mg (3) (HFpEF) heart failure with preserved ejection fraction Heart failure chronicity: acute Qualified Code(s): I50.31 - Acute diastolic (congestive) heart failure
[2023-01-22 12:37] LABS: Hematocrit (blood only) 22.8 % (37.0-47.0); Hemoglobin 6.7 g/dl (12.0-16.0)
--- NOTE | 2023-01-22 13:05 | Surgery Progress Note ---
Date of Service January 22, 2023 Assessment & Plan (1) Left humeral fracture: Plan: 87-year-old female with multiple medical comorbidities admitted with a displaced proximal humerus fracture. She has been seen by medicine and cardiology. Cardiology consult still pending. Hemoglobin is low at 7.0 this morning to recheck is 6.7. She is strongly desiring surgical management despite risk of complications. Plan: I did stress the treatment plans with the patient and her family as well as the hospitalist and the anesthesiologist. After extensive discussion with her low hemoglobin I think it is best to take some time to medically optimize her. She is just starting to get a unit of blood today yet. Will see how that goes and see how her heart responds to that. If everything looks good we will try and fix this tomorrow up. She strongly desiring surgical management despite the increased risks. In the meantime we will keep her in a sling. She will get the blood today. N.p.o. after midnight. Admission and Anticipated Discharge Date Admission Date: January 21, 2023 Subjective Patient is an 87-year-old female with multiple medical comorbidities admitted with a proximal humerus fracture. She is in the process of being medically optimized. Hemoglobin was 7.0 this morning and she is just starting to get some blood. No other complaints. She is really wanting to have her arm fixed. Physical Exam Physical Exam: Physical examination reveals a pleasant elderly female. She is in the ER still. She is lying in bed looks reasonably comfortable. She had a sling in place. There is no obvious deformity to arm. Minimal swelling. She is neurologically intact. Results & Data Vital Signs (Past 12 Hours) Vital Signs Temp Pulse Pulse Resp BP BP Pulse Ox 01/22/23 12:35 36.5 C 82 17 122/64 98 01/22/23 12:35 36.6 C 86 20 117/61 98 01/22/23 12:18 36.6 C 82 22 111/59 L 98 01/22/23 07:13 80 01/22/23 06:55 81 18 96/47 L 97 01/22/23 06:00 87 18 98 01/22/23 05:00 84 19 96 01/22/23 04:27 86 01/22/23 04:00 84 18 97 01/22/23 03:59 82 18 96 01/22/23 03:59 108/56 L 01/22/23 03:00 80 19 98 01/22/23 02:00 79 17 98 O2 Del Method O2 Flow Rate 01/22/23 12:35 01/22/23 12:35 2 01/22/23 12:18 2 01/22/23 07:13 01/22/23 06:55 Room Air 01/22/23 06:00 01/22/23 05:00 01/22/23 04:27 01/22/23 04:00 01/22/23 03:59 01/22/23 03:59 01/22/23 03:00 01/22/23 02:00 Laboratory Results Hemoglobin is 7.0. The repeat hemoglobin is 6.7. Electrolytes are stable. PG Care Time/CCT Total # of Minutes Spent Total Time Spent with Patient: Total time spent is greater than 50% in coordination of care (as documented) at patient's floor/unit and/or counseling patient: Coding Level of Care Code None Diagnoses Left humeral fracture S42.302A
[2023-01-22 20:03] LABS: Hematocrit (blood only) 26.2 % (37.0-47.0); Hemoglobin 7.8 g/dl (12.0-16.0)
[2023-01-23] MEDS: ACETAMINOPHEN 500 MG TAB PO SCH ×3 (04:19→21:08)
[2023-01-23] MEDS: guaiFENesin 600 MG TABCR PO SCH ×2 (06:06→18:18)
[2023-01-23 06:41] LABS: Hematocrit (blood only) 28.1 % (37.0-47.0); Mean Corpuscular Volume 93.7 fL (80.0-100.0); Mean Platelet Volume 10.5 fL (9.4-12.4); Nucleated RBC # (auto) 0.03 K/uL (0.00-0.12); Nucleated RBC % (auto) 0.3 %; Platelet Count 244 K/uL (130-400); RDW Coefficient of Variation 20.5 % (11.5-14.5); RDW Standard Deviation 68.8 fL (36.4-46.3); White Blood Count 8.63 K/ul (4.8-10.8)
[2023-01-23 07:02] LABS: BUN Creatinine Ratio 22.7 (10-20); Calcium 9.3 mg/dl (8.6-10.3); Creatinine Clr Calc Pharmacy 45.2 ml/min; Est GFR (Non-African American) 59.5 ml/min; Phosphorus 2.8 mg/dl (2.5-4.9)
--- NOTE | 2023-01-23 08:00 | Hospitalist Progress Note ---
Date of Service January 23, 2023 Assessment & Plan (1) Left humeral fracture: (2) Ambulatory dysfunction: (3) (HFpEF) heart failure with preserved ejection fraction: (4) Hypertension: (5) Hyperlipidemia: (6) COPD (chronic obstructive pulmonary disease): (7) CKD (chronic kidney disease) stage 3, GFR 30-59 ml/min: (8) Bipolar disorder: (9) Renal mass, left: (10) Depression: Plan This is an 87yo F with a PMH of COPD, peripheral vascular disease, hypertension, HFpEF, esophageal dysmotility, CKD 3, Alzheimer's dementia, bipolar 2 disorder, depression, tobacco use and other medical problems listed below presents after mechanical fall at home today and found to have an acute moderately displaced comminuted fracture of the neck and proximal shaft of the left humerus. Mechanical fall Acute displaced L humerus fracture Missed a step while ambulating with walker earlier today and fell onto left side Head CT without acute intracranial findings, cervical spine CT without cervical fracture or subluxation Left shoulder XR with acute moderately displaced comminuted fracture of the neck and proximal shaft of the left humerus Evaluated in ED by Dr. Bradshaw, who placed LUE in a sling and swath. Would likely benefit from surgical mgmt if medically appropriate given complex comorbidities Keep the head of the bed elevated is much as possible, pain control, NPO @ [place] Surgical repair postponed d/t anemia - pt received 2 units of pRBC -> current Hgb 9 Cardiology was also consulted for management - echo obtained on 01/22 - EF 65- 70% , mild concentric LVH, LA is mildly dilated. No significant valve disease. Compared to prior study, no significant change. Moderate perioperative risk from a cardiovascular perspective. Appears compensated/euvolemic. Blood pressure well-controlled. No recent anginal symptoms. ECG without ischemic changes. Review of bedside echocardiogram demonstrates preserved LV systolic function without significant valvular pathology. There is no contraindication to orthopedic surgery from a cardiovascular, however, anemia should be addressed by primary service. No further cardiac testing or intervention would lower her perioperative risk for noncardiac surgery at this time. Maintain hemoglobin greater than 8.0gm/dL prior to surgery. Plan for surgical repair today (01/23/2023) - pt with multiple medical comorbidities which makes her higher risk for surgery (and this was discussed w/ pt's family at the bedside) however no other intervention recommended at this time prior to surgery. Acute on chronic anemia Hgb 7.0 this AM - 01/22/2023 - (down from 9 on admission yesterday). Stat H&H ordered and consent for blood transfusion signed. Transfused 1 unit of pRBC. Repeated H&H in the evening - Hgb 7.8 - goal Hgb >8. Ordered another unit of pRBC. This AM Hgb 9.0 (after total of 2 units of pRBc) HFpEF CXR on admission with cardiomegaly with pulmonary vascular congestion. Suspect small pleural effusions Admitted a few weeks ago for resp failure in setting of CHF and possible PNA 2D echo from Jan 04, 2023 shows EF 60-65%, grade 1 diastolic dysfunction, moderate mitral annular calcification, pulmonary HTN Was optimized by cardiology during previous admission and discharged on 12.5 mg spironolactone and 20mg Lasix States BLE edema is close to baseline, denies any CP, palpitations or SOB. Currently saturating on room air at 92% Routine cardiology consult for possible pre-op clearance given medically complex and recent admission for CHF - as above Repeated CXR yesterday- essentially unchanged, continue home diuretics for now Echo obtained and reviewed by cardiology, as above History of COPD Ongoing tobacco abuse Continue home inhalers, Duonebs QID PRN SOB or wheezing cont. guaifenesin, incentive spirometry, flutter valve Smoking cessation CKD stage III Cr at baseline ~0.8. Continue monitoring with daily BMP History of left renal mass Mass 2.8 cm. Under observation by urology Bipolar disorder history of depression History of late onset Alzheimer's dementia with agitation Continue home meds of donepezil, Lamictal, risperidone and Zoloft Urinary incontinence Continue Myrbetriq DVT Ppx: SCDs for now Code status: no intubation but okay for CPR as per discussion with the family on admission - may be changed periop PCP: Dr. Luna Dispo: Admitting to med tele Daughter Rody (she and brother Claude have POA). Would appreciate updates by phone: [phone] Admission and Anticipated Discharge Date Admission Date: January 21, 2023 Subjective Pt seen in follow up of left humeral fx, recently admitted for hypoxic resp. failure, has hx of COPD and CHF Acute on chronic anemia - Hgb 7 yesterday AM - received 2 units of pRBC - this AM Hgb 9 Pt seen by cardiology and echo obtained yesterday for surgical pre-op assessment. Currently pt is laying in bed in NAD, her left arm is in a sling Denies any fevers chills chest pain palpitations shortness of breath. Denies any abdominal pain nausea vomiting. Patient's and daughter present at the bedside yesterday. Daughter is medical POA. Plan for OR likely this afternoon. Review of Systems Review of Systems: All systems reviewed & are unremarkable except as noted in Subjective Physical Exam Physical Exam: Constitutional: WD/WN, vitals as a ladarius Eyes: PERRL, conjunctiva e normal, anicteri c sclerae ENMT: external ear and n ose normal, oropha rynx normal Neck: normal visual insp ection Respiratory: normal respiratory effort (+ min rho nchi, no wheezing) Cardiovascular: Rate/Rhythm: regul ar rate and regula r rhythm + trac e LE edema b/l Chest (Breasts): Chest: normal insp ection of chest Gastrointestinal ( Abdomen): normal bowel sound s, soft, nontender Musculoskeletal: Extremities: extre mities normal to i nspection (moves e xtremities except L arm d/t pain, L arm in a sling) Skin: no rashes, warm an d dry Neurologic: PERRL, EOMI, no fa ce palsy, no dysar thria, movs extrem ities Psychiatric: A+Ox3, euthymic af fect, answers appr opriately Results & Data Results & Data Vital Signs (Past 12 Hours) Vital Signs Temp Pulse Pulse Resp BP BP Pulse Ox 01/23/23 07:55 36.8 C 97 H 19 124/76 92 01/23/23 04:00 36.6 C 92 H 18 121/73 93 01/23/23 01:26 86 01/23/23 01:14 36.5 C 93 H 18 123/75 01/23/23 00:15 36.5 C 89 20 117/70 96 01/22/23 23:15 36.6 C 88 18 121/71 97 01/22/23 22:45 36.7 C 90 18 126/72 96 01/22/23 22:30 36.7 C 89 20 113/67 96 01/22/23 22:05 36.6 C 87 20 126/71 95 01/22/23 21:30 91 H 01/22/23 21:05 01/22/23 21:05 36.4 C L 87 18 121/68 97 01/22/23 20:05 80 18 111/65 99 O2 Del Method O2 Flow Rate 01/23/23 07:55 Room Air 01/23/23 04:00 Room Air 01/23/23 01:26 01/23/23 01:14 01/23/23 00:15 2 01/22/23 23:15 2 01/22/23 22:45 2 01/22/23 22:30 2 01/22/23 22:05 5 01/22/23 21:30 01/22/23 21:05 Nasal Cannula 2 01/22/23 21:05 Nasal Cannula 2 01/22/23 20:05 Nasal Cannula 2 Laboratory Results 01/23/23 01/22/23 01/22/23 Range/Units 06:06 19:35 12:02 WBC 8.63 (4.8-10.8) K/ul RBC 3.00 L (4.20-5.40) M/uL Hgb 9.0 L 7.8 L 6.7 L* (12.0-16.0) g/dl Hct 28.1 L 26.2 L 22.8 L (37.0-47.0) % MCV 93.7 D (80.0-100.0) fL MCH 30.0 (25.0-34.0) pg MCHC 32.0 (32.0-36.0) g/dL RDW Std Deviation 68.8 H (36.4-46.3) fL RDW Coeff of Ami 20.5 H (11.5-14.5) % Plt Count 244 (130-400) K/uL MPV 10.5 (9.4-12.4) fL Absolute Nucleated RBC 0.03 (0.00-0.12) K/uL Nucleated RBC % (auto) 0.3 % Sodium 140 (136-145) mmol/L Potassium 4.0 (3.5-5.1) mmol/L Chloride 107 (98-107) mmol/L Carbon Dioxide 28 (21-32) mmol/L Anion Gap 5 (3-11) BUN 20 (6-23) mg/dl Creatinine 0.88 (0.6-1.2) mg/dl Est Cr Clr Drug Dosing 45.2 ml/min Est GFR ( Amer) 69.0 ml/min Est GFR (Non-Af Amer) 59.5 ml/min BUN/Creatinine Ratio 22.7 H (10-20) Glucose 106 H (70-99(Fasting)) mg/dl Calcium 9.3 (8.6-10.3) mg/dl Phosphorus 2.8 (2.5-4.9) mg/dl Magnesium 2.0 (1.7-2.4) mg/dl Blood Type Antibody Screen Crossmatch 01/22/23 01/22/23 01/21/23 Range/Units 10:59 09:35 21:33 WBC 5.25 (4.8-10.8) K/ul RBC 2.34 L (4.20-5.40) M/uL Hgb Cancelled 7.0 L (12.0-16.0) g/dl Hct Cancelled 23.2 L (37.0-47.0) % MCV 99.1 (80.0-100.0) fL MCH 29.9 (25.0-34.0) pg MCHC 30.2 L (32.0-36.0) g/dL RDW Std Deviation 66.8 H (36.4-46.3) fL RDW Coeff of Ami 18.7 H (11.5-14.5) % Plt Count 229 (130-400) K/uL MPV 10.3 (9.4-12.4) fL Absolute Nucleated RBC (0.00-0.12) K/uL Nucleated RBC % (auto) % Sodium 141 (136-145) mmol/L Potassium 4.3 (3.5-5.1) mmol/L Chloride 107 (98-107) mmol/L Carbon Dioxide 29 (21-32) mmol/L Anion Gap 5 (3-11) BUN 18 (6-23) mg/dl Creatinine 0.76 (0.6-1.2) mg/dl Est Cr Clr Drug Dosing 60.7 ml/min Est GFR ( Amer) 82.3 ml/min Est GFR (Non-Af Amer) 71.0 ml/min BUN/Creatinine Ratio 23.7 H (10-20) Glucose 111 H (70-99(Fasting)) mg/dl Calcium 9.4 (8.6-10.3) mg/dl Phosphorus 3.7 (2.5-4.9) mg/dl Magnesium 2.2 (1.7-2.4) mg/dl Blood Type O Positive Antibody Screen NEGATIVE Crossmatch See Detail Medications Administered Current Inpatient Medications Acetaminophen (Acetaminophen 500 Mg Tab) 1,000 mg PO Q8H YUKI Stop: 02/20/23 20:59 Last Admin: 01/23/23 04:19 Dose: Not Given Albuterol (Albut/Ipratrop 3mg/0.5mg Neb 3 Ml Vial) 3 ml NEB QIDR PRN; Protocol PRN Reason: Shortness Of Breath Or Wheezing Stop: 02/20/23 18:59 Donepezil HCl (Donepezil Hcl 5 Mg Tab) 5 mg PO QAM [facility] Stop: 02/21/23 08:59 Last Admin: 01/22/23 08:41 Dose: 5 mg Famotidine (Famotidine 20 Mg Tab) 20 mg PO DAILY [facility] Stop: 02/21/23 08:59 Last Admin: 01/22/23 08:41 Dose: 20 mg Folic Acid (Folic Acid 1 Mg Tab) 1 mg PO QAM [facility] Stop: 02/21/23 08:59 Last Admin: 01/22/23 08:41 Dose: 1 mg Furosemide (Furosemide 20 Mg Tab) 20 mg PO QAM [facility] Stop: 02/21/23 08:59 Last Admin: 01/22/23 08:41 Dose: 20 mg Guaifenesin (Guaifenesin 600 Mg Tabcr) 600 mg PO Q12H [facility] Stop: 02/20/23 17:59 Last Admin: 01/23/23 06:06 Dose: 600 mg Lamotrigine (Lamotrigine 25 Mg Tab) 25 mg PO QAM [facility] Stop: 02/21/23 08:59 Last Admin: 01/22/23 08:41 Dose: 25 mg Nystatin/Triamcinolone Acetonide (Nystatin/Triamcin Cr 15 Gm Tube) 1 appln EXT TID YUKI Stop: 02/20/23 20:59 Last Admin: 01/22/23 21:58 Dose: 1 appln Ondansetron HCl (Ondansetron Inj 2 Mg/Ml 2 Ml Vial) 4 mg IV Q6H PRN PRN Reason: Nausea Stop: 02/20/23 20:28 Polyethylene Glycol (Polyethylene (Miralax) 17 Gm Pack) 17 gm PO DAILY PRN PRN Reason: Constipation Stop: 02/20/23 20:28 Risperidone (Risperidone 0.5 Mg Tablet) 0.5 mg PO BID [facility] Stop: 02/20/23 20:59 Last Admin: 01/22/23 21:58 Dose: 0.5 mg Sertraline HCl (Sertraline Hcl 50 Mg Tablet) 50 mg PO DAILY YUKI Stop: 02/21/23 08:59 Last Admin: 01/22/23 08:41 Dose: 50 mg Spironolactone (Spironolactone 12.5 Mg Tab) 12.5 mg PO DAILY YUKI Stop: 02/21/23 08:59 Last Admin: 01/22/23 08:41 Dose: 12.5 mg Tramadol HCl (Tramadol Hcl 50 Mg Tablet) 50 mg PO TID PRN PRN Reason: Pain Stop: 02/20/23 20:28 Vibegron (Vibegron 75 Mg Tab) 75 mg PO DAILY [facility] Stop: 02/21/23 08:59 Last Admin: 01/22/23 08:40 Dose: 75 mg (3) (HFpEF) heart failure with preserved ejection fraction Heart failure chronicity: acute Qualified Code(s): I50.31 - Acute diastolic (congestive) heart failure (4) Hypertension Hypertension type: primary hypertension Qualified Code(s): I10 - Essential (primary) hypertension
--- NOTE | 2023-01-23 08:35 | Orthopedic Progress Note ---
Date of Service January 23, 2023 Assessment & Plan (1) Left humeral fracture: At this point, from an orthopedics standpoint we would still like to proceed with ORIF of her left proximal humerus fracture. Her Hgb is up today after yesterday's transfusion to 9.0. Pending medical clearance for this patient to pr oceed with surgery from the hospitalist team. If patient is able to get cleared today, we would like to proceed this afternoon with surgical intervention. Dr. Lu took over care for this patient and will be the surgeon for her today if able to proceed. Continue to be NPO. We will wait to hear from the hospitalist team if cleared to proceed. Subjective .Debra was evaluated at bedside today resting comfortably in bed. She was postponed for her ORIF of her left proximal humerus fracture due to her Hgb being 6.7 yesterday. She was transfused and is now at 9.0 with her Hgb. Cardiology gave clearance yesterday to proceed. She would like to proceed with surgery if medically cleared today. She denies any other concerns today. Review of Systems All systems reviewed & are unremarkable except as noted in HPI & below. Physical Exam .Physical examination was a pleasant elderly frail left female. I does not look in optimal health. Examination of the left shoulder and arm reveals no obvious deformity. She does have palpable discomfort of the left upper arm and shoulder area. She can flex extend her fingers and wrist appropriately. She got pain with any type of elbow and arm motion. She is neurologically intact. Results & Data Results & Data Laboratory Results . Diagnostic Findings . PG Care Time/CCT Total # of Minutes Spent Total Time Spent with Patient: Total time spent is greater than 50% in coordination of care (as documented) at patient's floor/unit and/or counseling patient: Coding Level of Care Code 14058 SUB INP/OBS CARE 03/20MIN Diagnoses Left humeral fracture S42.302A
--- NOTE | 2023-01-23 08:39 | Anesthesiology Consultation ---
Date of Service January 23, 2023 Assessment & Plan Chart Review Chart Review: Acceptable Risk for Surgery and Patient NOT seen in Pre Admission Testing Consults Requested none History Surgery Operation Date: 01/23/23 07:00 Proposed Procedures p Left Proximal Humerus Fracture Open Reduction Internal Fixation - Miah Lu, Height/Weight Height: 5 ft 2 in Weight: 81 kg Allergies Allergy/AdvReac Type Severity Reaction Status Date / Time ceftriaxone Allergy Intermediate hives Verified 10/06/22 20:25 Iodinated Contrast Media Allergy Intermediate pruritus Verified 10/06/22 20:25 (feet) Penicillins Allergy Intermediate hives Verified 10/06/22 20:25 cisapride AdvReac Intermediate GI symptoms Verified 10/06/22 20:25 solifenacin AdvReac Intermediate blurred Verified 10/06/22 20:25 vision Medications Home Medications Medication Instructions Recorded Confirmed Last Taken donepezil 5 mg tablet 5 mg PO QAM 01/04/23 01/21/23 Unknown folic acid 1 mg tablet 1 mg PO QAM 01/04/23 01/21/23 Unknown lamotrigine 25 mg tablet 25 mg PO QAM 01/04/23 01/21/23 Unknown mirabegron 50 mg tablet,extended 50 mg PO QAM 01/04/23 01/21/23 Unknown release 24 hr (Myrbetriq) risperidone 0.5 mg tablet 0.5 mg PO BID 01/04/23 01/21/23 Unknown sertraline 50 mg tablet 50 mg PO DAILY 01/04/23 01/21/23 Unknown tramadol 50 mg tablet 50 mg PO TID PRN Pain 01/04/23 01/21/23 Unknown furosemide 20 mg tablet 20 mg PO QAM #30 tabs 01/13/23 01/21/23 Unknown spironolactone 25 mg tablet 12.5 mg (1/2 x 25 mg) PO DAILY #30 01/13/23 01/21/23 Unknown tabs famotidine 20 mg tablet 20 mg PO DAILY 01/21/23 01/21/23 Unknown nystatin-triamcinolone 100,000 1 applic topical TID 01/21/23 01/21/23 Unknown unit/g-0.1 % topical cream triamterene 37.5 1 tab PO QAM 01/21/23 01/21/23 Unknown mg-hydrochlorothiazide 25 mg tablet Active Medications Generic Name Dose Route Start Last Admin Trade Name Jonathan PRN Reason Stop Dose Admin Acetaminophen 1,000 mg 01/21/23 21:00 01/23/23 04:19 Acetaminophen 500 Mg Tab PO 02/20/23 20:59 Not Given Q8H YUKI Donepezil HCl 5 mg 01/22/23 09:00 01/22/23 08:41 Donepezil Hcl 5 Mg Tab PO 02/21/23 08:59 5 mg QAM YUKI Administration Famotidine 20 mg 01/22/23 09:00 01/22/23 08:41 Famotidine 20 Mg Tab PO 02/21/23 08:59 20 mg DAILY YUKI Administration Folic Acid 1 mg 01/22/23 09:00 01/22/23 08:41 Folic Acid 1 Mg Tab PO 02/21/23 08:59 1 mg QAM YUKI Administration Furosemide 20 mg 01/22/23 09:00 01/22/23 08:41 Furosemide 20 Mg Tab PO 02/21/23 08:59 20 mg QAM YUKI Administration Guaifenesin 600 mg 01/21/23 18:00 01/23/23 06:06 Guaifenesin 600 Mg Tabcr PO 02/20/23 17:59 600 mg Q12H YUKI Administration Lamotrigine 25 mg 01/22/23 09:00 01/22/23 08:41 Lamotrigine 25 Mg Tab PO 02/21/23 08:59 25 mg QAM UYKI Administration Nystatin/Triamcinolone Acetonide 1 appln 01/21/23 21:00 01/22/23 21:58 Nystatin/Triamcin Cr 15 Gm Tube EXT 02/20/23 20:59 1 appln TID YUKI Administration Risperidone 0.5 mg 01/21/23 21:00 01/22/23 21:58 Risperidone 0.5 Mg Tablet PO 02/20/23 20:59 0.5 mg BID YUKI Administration Sertraline HCl 50 mg 01/22/23 09:00 01/22/23 08:41 Sertraline Hcl 50 Mg Tablet PO 02/21/23 08:59 50 mg DAILY YUKI Administration Spironolactone 12.5 mg 01/22/23 09:00 01/22/23 08:41 Spironolactone 12.5 Mg Tab PO 02/21/23 08:59 12.5 mg DAILY YUKI Administration Vibegron 75 mg 01/22/23 09:00 01/22/23 08:40 Vibegron 75 Mg Tab PO 02/21/23 08:59 75 mg DAILY YUKI Administration NPO Date Last Intake of Fluids: 01/22/23 Time Last Intake of Fluids: 23:00 Date Last Intake of Solids: 01/22/23 Past Medical History Medical History COPD (chronic obstructive pulmonary disease) Ambulatory dysfunction OAB (overactive bladder) s/p nerve stimulator Bipolar disorder Osteoarthritis Degenerative disc disease Chronic back pain Depression GERD (gastroesophageal reflux disease) CKD (chronic kidney disease) stage 3, GFR 30-59 ml/min Hyperlipidemia Hypertension Past Family History Family History Father Family hx of colon cancer Brother Family history of diabetes mellitus Sister Family history of diabetes mellitus Past Surgical History Surgical History History of arthroplasty of left knee H/O vaginal hysterectomy History of arthroplasty of right knee H/O bladder repair surgery "vaginal sling procedure for stress incontinence 11/2006 " History of carpal tunnel surgery "Right" History of appendectomy History of tonsillectomy and adenoidectomy Social History Smoking Status: Former smoker tobacco type: cigarettes Smoking cigarettes per day: 7-9 Do You Dip or Chew Tobacco: No Hx Alcohol Use: No Hx Substance Use: No substance use type: does not use Physical Exam Vital Signs Last Vital Signs Temp 36.8 C 01/23/23 07:55 Pulse 97 H 01/23/23 07:55 Resp 19 01/23/23 07:55 BP 124/76 01/23/23 07:55 Pulse Ox 92 01/23/23 07:55 O2 Del Method Room Air 01/23/23 07:55 O2 Flow Rate 2 01/23/23 00:15 Testing Laboratory Results 01/23/23 06:06 01/23/23 06:06 Urine Color Yellow 01/22/23 Unknown Urine Appearance Clear (Clear) 01/22/23 Unknown Urine pH 5.0 (4.5-7.5) 01/22/23 Unknown Ur Specific [place] 1.023 (1.000-1.030) 01/22/23 Unknown Urine Protein Negative (Negative) 01/22/23 Unknown Urine Glucose (UA) Negative (Negative) 01/22/23 Unknown Urine Ketones Negative (Negative) 01/22/23 Unknown Urine Nitrite Negative (Negative) 01/22/23 Unknown Ur Leukocyte Esterase Negative (Negative) 01/22/23 Unknown Blood Type O Positive 01/21/23 21:33 Antibody Screen NEGATIVE 01/21/23 21:33 Electrocardiogram Date: 01/21/23 Findings: + NSR @ Chest X-Ray Date: 01/22/23 Findings: + cardiomegaly and + pulmonary vascular congestion Echocardiogram Date: 01/21/23 EF: 65 LV Function: normal Other Findings: + LVH
[2023-01-23] MEDS: SERTRALINE HCL 50 MG TABLET PO SCH (08:42)
[2023-01-23] MEDS: VIBEGRON 75 MG TAB PO SCH (08:42)
[2023-01-23] MEDS: lamoTRIgine 25 MG TAB PO SCH (08:42)
[2023-01-23] MEDS: SPIRONOLACTONE 12.5 MG TAB PO SCH (08:42)
[2023-01-23] MEDS: risperiDONE 0.5 MG TABLET PO SCH ×2 (08:42→21:09)
[2023-01-23] MEDS: FUROSEMIDE 20 MG TAB PO SCH (08:43)
[2023-01-23] MEDS: DONEPEZIL HCL 5 MG TAB PO SCH (08:43)
[2023-01-23] MEDS: NYSTATIN/TRIAMCIN CR 15 GM TUBE EXT SCH ×4 (08:43→21:09)
[2023-01-23] MEDS: FOLIC ACID 1 MG TAB PO SCH (08:43)
[2023-01-23] MEDS: FAMOTIDINE 20 MG TAB PO SCH (08:43)
[2023-01-23] MEDS ORDERED: BUPIVACAINE 0.5 % 5 MG/1 ML PF 10ML VIAL ONE (11:02)
--- NOTE | 2023-01-23 12:10 | Cardiology Progress Note ---
Date of Service January 23, 2023 Assessment & Plan (1) Preop cardiovascular exam: (2) Hypertension: (3) Chronic heart failure with preserved ejection fraction: (4) Anemia: Plan 87-year-old female presents with mechanical fall and left humeral fracture. Moderate perioperative risk from a cardiovascular perspective. Appears compensated/euvolemic. Blood pressure well-controlled. No recent anginal symptoms. ECG without ischemic changes. Review of bedside echocardiogram demonstrates preserved LV systolic function without significant valvular pathology. There is no contraindication to orthopedic surgery from a cardiovascular perspective. Hemoglobin stable after transfusion of packed red blood cells. No signs of GI/ blood loss currently. No further cardiac testing or intervention would lower her perioperative risk for noncardiac surgery at this time. Coronary calcifications noted on prior CT. Will add statin therapy prior to discharge. Outpatient cardiology follow-up already scheduled in January. Admission and Anticipated Discharge Date Admission Date: January 21, 2023 Subjective Patient seen examined the bedside. Denies chest pain or shortness of breath. Received transfusion of packed red blood cells. Repeat hemoglobin 9.0. Left arm pain controlled. No orthopnea, PND, or edema. Telemetry reveals sinus rhythm with PACs in the 90s. Review of Systems Review of Systems: All systems reviewed & are unremarkable except as noted in Subjective Physical Exam Constitutional: well nourished; no acute distress Respiratory: no respiratory distress, no labored breathing and no retractions Auscultation: + diminished lung sounds; no crackles, no rales and no wheezes Cardiovascular: Rate/Rhythm: regular rate and regular rhythm Heart Sounds: normal S1, normal S2 and + murmur (1/6 early peaking systolic ejection murmur heard best at the base) Vessels: radial pulses present; no JVD and no carotid bruit Extremities: no edema Gastrointestinal (Abdomen): Inspection/Auscultation: abdomen not distended Percussion/Palpation: abdomen soft; no guarding and abdomen not rigid Neurologic: CN's II-XI intact bilaterally and moves all extremities; no focal motor deficits Results & Data Vital Signs (Past 12 Hours) Vital Signs Temp Pulse Pulse Resp BP BP Pulse Ox 01/23/23 11:52 37.1 C 96 H 19 131/79 93 01/23/23 11:40 01/23/23 10:59 97 H 01/23/23 07:55 36.8 C 97 H 19 124/76 92 01/23/23 04:00 36.6 C 92 H 18 121/73 93 01/23/23 01:26 86 01/23/23 01:14 36.5 C 93 H 18 123/75 01/23/23 00:15 36.5 C 89 20 117/70 96 O2 Del Method O2 Flow Rate 01/23/23 11:52 Nasal Cannula 1 01/23/23 11:40 Room Air 01/23/23 10:59 01/23/23 07:55 Room Air 01/23/23 04:00 Room Air 01/23/23 01:26 01/23/23 01:14 01/23/23 00:15 2 Laboratory Results CBC 01/22/23 01/22/23 01/23/23 Range/Units 12:02 19:35 06:06 WBC 8.63 (4.8-10.8) K/ul RBC 3.00 L (4.20-5.40) M/uL Hgb 6.7 L* 7.8 L 9.0 L (12.0-16.0) g/dl Hct 22.8 L 26.2 L 28.1 L (37.0-47.0) % Plt Count 244 (130-400) K/uL Comprehensive Metabolic Panel 01/23/23 Range/Units 06:06 Sodium 140 (136-145) mmol/L Potassium 4.0 (3.5-5.1) mmol/L Chloride 107 (98-107) mmol/L Carbon Dioxide 28 (21-32) mmol/L BUN 20 (6-23) mg/dl Creatinine 0.88 (0.6-1.2) mg/dl Glucose 106 H (70-99(Fasting)) mg/dl Calcium 9.3 (8.6-10.3) mg/dl Intake and Output 01/22/23 01/23/23 01/23/23 22:59 06:59 14:59 Intake Total 287 / 566 279 / 566 Output Total 400 / 400 Balance 287 / 166 -121 / 166 - Intake: Intake (Blood Product) Amt 287 / 566 279 / 566 Packed Cells, Leukoreduced 0 / 279 279 / 279 Unit [id number] Packed Cells, Leukoreduced 287 / 287 Unit [id number] Output: Urine Amount (Catheter) 400 / 400 External 400 / 400 # Bowel Movements Other: Other Intake Source NPO # Unmeasured Voids 1 Weight 80 kg 81 kg 81 kg Weight Measurement Method [facility] Built in [facility] Patient Weight 01/24/23 06:59 Weight 81 kg (2) Hypertension Hypertension type: primary hypertension Qualified Code(s): I10 - Essential (primary) hypertension (4) Anemia Anemia type: unspecified type Qualified Code(s): D64.9 - Anemia, unspecified
[2023-01-23] MEDS ORDERED: LIDOCAINE 2% 2 ML VIAL/AMP(20MG/ML) INFIL ONE (13:11)
[2023-01-23] MEDS ORDERED: PROPOFOL IV EMULSION 10 MG/ML 20 ML VIAL IV ONE (13:11)
[2023-01-23] MEDS ORDERED: ROCURONIUM BROMIDE 10 MG/ML 5 ML VIAL IV ONE (13:11)
[2023-01-23] MEDS ORDERED: DEXAMETHASONE SOD INJ 4 MG/ML VIAL ONE (13:11)
[2023-01-23] MEDS ORDERED: ONDANSETRON INJ 2 MG/ML 2 ML VIAL ONE (13:11)
[2023-01-23] MEDS ORDERED: fentaNYL citrate PF 100 MCG/2 ML VIAL ONE (13:12)
[2023-01-23] MEDS ORDERED: BUPIVACAINE/EPINEPHRINE 0.5% MPF 1:200,000 30 ML VIAL ONE (13:12)
[2023-01-23] MEDS ORDERED: SUGAMMADEX SODIUM 200 MG/2 ML VIAL IV ONE (13:14)
--- NOTE | 2023-01-23 13:17 | History & Physical Bridge Note ---
Date of Service January 23, 2023 History & Physical Bridge Note I have examined the patient, reviewed the History & Physical and in the interval since the performance of the History & Physical I have noted the following changes of clinical significance: no changes noted
[2023-01-23] MEDS ORDERED: ceFAZolin 2000MG 2,000 MG/15 ML SYR IV ONE (13:42)
[2023-01-23] MEDS ORDERED: ceFAZolin 2,000 MG/15 ML IV PUSH IV ONE (13:43)
[2023-01-23] MEDS: LACTATED RINGER'S 1,000 ML IV SCH (13:45)
[2023-01-23] MEDS ORDERED: Nursing to Pharmacy Communication SCH (13:45)
--- NOTE | 2023-01-23 15:31 | Operative Report ---
PG Post Operative Report Pre & Post Diagnosis Operation Date: 01/23/23 07:00 Pre-Op Diagnosis: Left Humerus Fracture Post-Op Diagnosis: Left Humerus Fracture I identified the patient and participated in the time-out.: Yes Procedure Operation Date: 01/23/23 07:00 Actual Procedures p Left Proximal Humerus Fracture Open Reduction Internal Fixation(Left) - Miah Lu DO Surgeon Miah Lu DO [employer] Heriberto Bonilla PA-C Estimated Blood Loss 350 Findings Consistent with Post-Op Diagnosis Specimens None Description of Procedure Implants used: I used a Synthes 3.5 mm 6-hole proximal humeral locking plate with 1 cortical screw and 12 locking screws. On January 23, 2023 Debra was brought down from her hospital room to the preoperative holding area. The operative extremity identified and signed. She is given a preoperative antibiotic. She is taken back the operative room and laid on table in supine position. She was put under general anesthesia. She was put into the beachchair position. The left shoulder was prepped and draped in sterile fashion. A timeout was done. The patient and the operative extremity was properly identified. An extended deltopectoral approach was used. Dissection was taken down through the fascia. The deltopectoral interval was split. The fracture was easily identified. The entire wound was irrigated. The fracture edges were exposed. There was significant comminution on the lateral aspect of the proximal humerus. The fracture was reduced. A Synthes 6-hole 3.5 mm proximal humeral locking plate was then placed. Appropriate placement was checked on fluoroscopic images. Once I was happy with the placement of the plate a single cortical screw was placed in the shaft to hold the plate in place. A locking screw was then placed proximally. Orthogonal fluoroscopic images were obtained and I was happy with the alignment of the fracture and the placement of the plate. The remainder proximal and distal locking screws were then placed. The length of the screws were checked on orthogonal fluoroscopic images to make sure that they were out of the joint. Final fluoroscopic images were obtained and saved. The wound was then irrigated. The deltopectoral interval was closed with 2-0 Vicryl. Skin was closed with 3-0 Vicryl and vangie. She was then placed in a soft dressing and an arm sling. She was then extubated and transferred to a [facility]. She was taken to the postanesthesia care unit in stable condition. She tolerated the procedure well. Heriberto Bonilla PA-C, was present for the entire procedure. He was critical for patient positioning, prepping, draping, retraction exposure, wound closure and application of sterile dressing. I attest to the content of the Intraoperative Record and any orders documented therein. Any exceptions are noted below.
[2023-01-23] MEDS ORDERED: PROMETHAZINE HCL 12.5 MG in SODIUM CHLORIDE 0.9% 50 ML IV PRN (15:43)
[2023-01-23] MEDS ORDERED: fentaNYL citrate PF 100 MCG/2 ML VIAL IV PRN (15:43)
[2023-01-23] MEDS ORDERED: ePHEDrine sulfate 50 MG/ML AMP IV PRN (15:43)
[2023-01-23] MEDS ORDERED: ATROPINE SULFATE 0.1 MG/ML 10ML SYR IV PRN (15:43)
[2023-01-23] MEDS ORDERED: NALOXONE HCL 0.4 MG/1 ML VIAL/CARP IV PRN ×2 (15:43→16:49)
--- NOTE | 2023-01-23 15:55 | Fluoroscopy Report ---
FL humerus LT 2V CLINICAL HISTORY: LEFT ORIF HUMERUS acute comminuted left humeral fracture. COMPARISON STUDY: 01/21/2023 FLUOROSCOPY TIME: 35.6 seconds FLUOROSCOPY IMAGES: 2 EXPOSURE DOSE: 2.2388 mGy FINDINGS: Status post placement of plate and screw fusion fixating the acute comminuted proximal left humeral fracture, now with improved alignment. The hardware appears intact. IMPRESSION: Fluoroscopic assistance as above. ACT 112: Negative or not required by law. Electronically signed by: Jean-Pierre Suarez M.D. 01/23/2023 3:54 PM
--- NOTE | 2023-01-23 16:33 | Anesthesiology Progress Note ---
Date of Service January 23, 2023 Anesthesia Post Procedure Vital Signs Vital Signs: Temp Pulse Pulse Pulse Resp BP BP 01/23/23 16:20 93 H 20 124/61 01/23/23 16:10 36.7 C 93 H 19 132/63 01/23/23 16:00 93 H 24 133/61 01/23/23 15:50 90 20 133/65 01/23/23 15:43 36.0 C L 90 20 133/63 01/23/23 12:58 36.9 C 99 H 20 135/71 01/23/23 11:52 37.1 C 96 H 19 131/79 01/23/23 11:40 01/23/23 10:59 97 H 01/23/23 07:55 36.8 C 97 H 19 124/76 01/23/23 04:00 36.6 C 92 H 18 121/73 01/23/23 01:26 86 01/23/23 01:14 36.5 C 93 H 18 123/75 01/23/23 00:15 36.5 C 89 20 117/70 01/22/23 23:15 36.6 C 88 18 121/71 01/22/23 22:45 36.7 C 90 18 126/72 01/22/23 22:30 36.7 C 89 20 113/67 01/22/23 22:05 36.6 C 87 20 126/71 01/22/23 21:30 91 H 01/22/23 21:05 01/22/23 21:05 36.4 C L 87 18 121/68 01/22/23 20:05 80 18 111/65 01/22/23 16:36 84 Pulse Ox O2 Del Method O2 Flow Rate 01/23/23 16:20 98 Nasal Cannula 3 01/23/23 16:10 98 Nasal Cannula 3 01/23/23 16:00 97 Oxymask 4 01/23/23 15:50 97 Oxymask 6 01/23/23 15:43 98 Oxymask 6 01/23/23 12:58 92 Room Air 01/23/23 11:52 93 Nasal Cannula 1 01/23/23 11:40 Room Air 01/23/23 10:59 01/23/23 07:55 92 Room Air 01/23/23 04:00 93 Room Air 01/23/23 01:26 01/23/23 01:14 01/23/23 00:15 96 2 01/22/23 23:15 97 2 01/22/23 22:45 96 2 01/22/23 22:30 96 2 01/22/23 22:05 95 5 01/22/23 21:30 01/22/23 21:05 Nasal Cannula 2 01/22/23 21:05 97 Nasal Cannula 2 01/22/23 20:05 99 Nasal Cannula 2 01/22/23 16:36 Pain Intensity Left Shoulder: Pain Intensity: 2 Transfer of Care Handoff Completed per policy Notes Mental Status: alert / awake / arousable Patient Amnestic to Procedure: Yes Nausea / Vomiting: adequately controlled Pain: adequately controlled Airway Patency, RR, SpO2: stable & adequate BP & HR: stable & adequate Hydration State: stable & adequate Anesthetic Complications: no major complications apparent
[2023-01-23] MEDS ORDERED: oxyCODONE HCL IR 5 MG TAB (IMMEDIATE RELEASE) PO PRN (16:49)
[2023-01-23] MEDS ORDERED: METOCLOPRAMIDE HCL INJ 5 MG/ML 2 ML VIAL IV PRN (16:49)
[2023-01-23] MEDS ORDERED: bisacodyL 10 MG SUPP PR PRN (16:49)
[2023-01-23] MEDS ORDERED: ACETAMINOPHEN 1,000 MG/100 ML VIAL IV PRN (16:49)
[2023-01-23] MEDS ORDERED: MAGNESIUM HYDROXIDE SUSP 30 ML UDC PO PRN (16:49)
[2023-01-23] MEDS ORDERED: HYDROmorphone INJ 0.5 MG/0.5 ML SYR IV PRN (16:49)
[2023-01-23] MEDS ORDERED: ONDANSETRON INJ 2 MG/ML 2 ML VIAL IV PRN (16:49)
[2023-01-23] MEDS: SODIUM CHLORIDE 0.9% 1,000 ML IV SCH (17:10)
--- NOTE | 2023-01-23 19:26 | XRay Report ---
XR shoulder LT min 2V routine CLINICAL HISTORY: Post shoulder surgery TECHNIQUE: 3 views of the left shoulder were obtained. Comparison: Comparison is made to shoulder radiograph 01/13/2023 FINDINGS: Left shoulder plate and screw fixation hardware is seen with expected postoperative appearance. Fract ure fragments are in anatomic alignment. IMPRESSION: Expected postoperative appearance status post open reduction internal fixation.. ACT 112: Negative or not required by law. Electronically signed by: Elliott Hansen M.D. 01/23/2023 7:25 PM
[2023-01-23] MEDS: SENNA 8.6 MG TAB PO SCH (21:10)
[2023-01-23] MEDS: DOCUSATE SODIUM 100 MG CAP PO SCH (21:10)
[2023-01-23] MEDS: CLINDAMYCIN/D5W 600 MG/50 ML BAG IV SCH (21:44)
[2023-01-24] MEDS: SODIUM CHLORIDE 0.9% 1,000 ML IV SCH (03:20)
[2023-01-24] MEDS: ACETAMINOPHEN 500 MG TAB PO SCH ×3 (05:19→21:38)
[2023-01-24] MEDS: guaiFENesin 600 MG TABCR PO SCH ×2 (05:20→18:21)
[2023-01-24] MEDS: CLINDAMYCIN/D5W 600 MG/50 ML BAG IV SCH (05:33)
[2023-01-24 06:56] LABS: Basophils # (auto) 0.01 K/uL (0.00-0.20); Basophils % (auto) 0.1 %; Hematocrit (blood only) 25.8 % (37.0-47.0); Hemoglobin 7.7 g/dl (12.0-16.0); Immature Granulocytes # (auto) 0.05 K/uL (0.01-0.20); Immature Granulocytes % (auto) 0.7 %; Lymphocytes # (auto) 0.79 K/uL (1.20-3.40); Lymphocytes % (auto) 10.7 %; Mean Corpuscular Hemoglobin 29.3 pg (25.0-34.0); Mean Corpuscular Hgb Conc 29.8 g/dL (32.0-36.0); Mean Corpuscular Volume 98.1 fL (80.0-100.0); Mean Platelet Volume 10.5 fL (9.4-12.4); Monocytes # (auto) 1.05 K/uL (0.11-0.59); Monocytes % (auto) 14.3 %; Neutrophils # (auto) 5.45 K/uL (1.40-6.50); Neutrophils % (auto) 74.2 %; Platelet Count 245 K/uL (130-400); RDW Coefficient of Variation 20.1 % (11.5-14.5); RDW Standard Deviation 72.1 fL (36.4-46.3); Red Blood Count 2.63 M/uL (4.20-5.40); White Blood Count 7.35 K/ul (4.8-10.8)
[2023-01-24 07:18] LABS: Creatinine Clr Calc Pharmacy 38.4 ml/min; Est GFR (African American) 56.3 ml/min; Est GFR (Non-African American) 48.6 ml/min; Phosphorus 4.4 mg/dl (2.5-4.9); Potassium 4.6 mmol/L (3.5-5.1)
[2023-01-24 07:27] LABS: Anisocytosis Present; Polychromasia 1+
--- NOTE | 2023-01-24 07:54 | Orthopedic Progress Note ---
Date of Service January 24, 2023 Assessment & Plan (1) Left humeral fracture: At this point, she is doing overall pretty well postoperatively. She will work with physical therapy and Occupational Therapy today and remain nonweightbearing to the left upper extremity. She may do range of motion at the elbow, wrist, and hand. She does use a walker for ambulatory assistance which may make recovery quite hard for her. She will more likely require a stay at rehabilitation or [facility] facility upon discharge. Her dressings will stay on for 7 days postoperatively. Medical management per primary. Will see how she does with physical therapy today. Subjective . Debra was seen on rounds today resting comfortably in bed in no apparent distress. She notes that her left upper extremity has good pain control at this point. She has yet to be out of bed this morning. She will be evaluated by physical therapy and Occupational Therapy later on today. She is nonweightbearing to the left upper extremity. May work on range of motion at the elbow, wrist, and hand. She denies any other concerns. Review of Systems All systems reviewed & are unremarkable except as noted in HPI & below. Physical Exam .Physical examination was a pleasant elderly frail left female. Examination of the left shoulder and arm reveals dressings are intact, clean, and dry. Tenderness to palpation diffusely throughout the left upper extremity. She is comfortable in her sling. She can flex and extend her fingers and wrist appropriately. +2 radial pulse. Less than 2-second capillary refill. Normal sensation. Neurovascular intact. Results & Data Results & Data Laboratory Results . Diagnostic Findings . Postoperative x-rays were reviewed and shows expected postoperative changes to the left humerus. PG Care Time/CCT Total # of Minutes Spent Total Time Spent with Patient: Total time spent is greater than 50% in coordination of care (as documented) at patient's floor/unit and/or counseling patient: Coding Level of Care Code 40295 Post Operative Follow-Up Diagnoses Left humeral fracture S42.302A
[2023-01-24] MEDS: FAMOTIDINE 20 MG TAB PO SCH (09:11)
[2023-01-24] MEDS: DOCUSATE SODIUM 100 MG CAP PO SCH ×2 (09:12→21:38)
[2023-01-24] MEDS: MULTIVITAMIN TAB PO SCH (09:12)
[2023-01-24] MEDS: FOLIC ACID 1 MG TAB PO SCH (09:12)
[2023-01-24] MEDS: SPIRONOLACTONE 12.5 MG TAB PO SCH (09:12)
[2023-01-24] MEDS: risperiDONE 0.5 MG TABLET PO SCH ×2 (09:12→21:33)
[2023-01-24] MEDS: VIBEGRON 75 MG TAB PO SCH (09:12)
[2023-01-24] MEDS: lamoTRIgine 25 MG TAB PO SCH (09:12)
[2023-01-24] MEDS: SERTRALINE HCL 50 MG TABLET PO SCH (09:12)
[2023-01-24] MEDS: DONEPEZIL HCL 5 MG TAB PO SCH (09:12)
[2023-01-24] MEDS: FUROSEMIDE 20 MG TAB PO SCH (09:13)
[2023-01-24] MEDS: NYSTATIN/TRIAMCIN CR 15 GM TUBE EXT SCH ×4 (09:14→21:32)
--- NOTE | 2023-01-24 10:50 | Cardiology Progress Note ---
Date of Service January 24, 2023 Assessment & Plan (1) Chronic heart failure with preserved ejection fraction: (2) Hypertension: (3) Anemia: Plan 87-year-old female presents with mechanical fall and left humeral fracture. Orthopedic surgery performed without complication 01/23/2023. Repeat checks x-ray today due to crackles on exam. Continue daily oral Lasix and spironolactone as ordered. Consider additional dose of IV Lasix pending review of chest x-ray. Incentive spirometry ordered. Monitor daily H&H. Coronary calcifications noted on prior CT. Will add statin therapy prior to discharge. Will not add aspirin at this time due to ongoing issues with anemia. Outpatient cardiology follow-up scheduled in January. Admission and Anticipated Discharge Date Admission Date: January 21, 2023 Subjective Patient seen examined the bedside. Feeling well postoperatively. Shoulder discomfort improved. Denies chest pain or shortness of breath. Oxygen saturation 97% on 2 L. Hemoglobin trending downward to seven 7.7g.dl today. Telemetry reveals sinus rhythm in the 80s. Review of Systems Review of Systems: All systems reviewed & are unremarkable except as noted in Subjective Physical Exam Constitutional: well nourished; no acute distress Respiratory: no respiratory distress, no labored breathing and no retractions Auscultation: + diminished lung sounds and + crackles (right side); no rales and no wheezes Cardiovascular: Rate/Rhythm: regular rate and regular rhythm Heart Sounds: normal S1, normal S2 and + murmur (1/6 early peaking systolic ejection murmur heard best at the base) Vessels: radial pulses present; no JVD and no carotid bruit Extremities: no edema Gastrointestinal (Abdomen): Inspection/Auscultation: abdomen not distended Percussion/Palpation: abdomen soft; no guarding and abdomen not rigid Neurologic: CN's II-XI intact bilaterally and moves all extremities; no focal motor deficits Results & Data Vital Signs (Past 12 Hours) Vital Signs Temp Pulse Pulse Pulse Resp BP Pulse Ox 01/24/23 07:44 36.4 C L 84 18 103/60 97 01/24/23 04:08 95 01/24/23 04:02 36.6 C 95 H 16 104/66 90 01/23/23 23:40 91 H 01/23/23 23:19 36.9 C 87 16 111/70 96 O2 Del Method O2 Flow Rate 01/24/23 07:44 Nasal Cannula 2 01/24/23 04:08 Nasal Cannula 2 01/24/23 04:02 Room Air 01/23/23 23:40 01/23/23 23:19 Room Air Laboratory Results CBC 01/24/23 Range/Units 06:12 WBC 7.35 (4.8-10.8) K/ul RBC 2.63 L (4.20-5.40) M/uL Hgb 7.7 L (12.0-16.0) g/dl Hct 25.8 L (37.0-47.0) % Plt Count 245 (130-400) K/uL Neut # (Auto) 5.45 (1.40-6.50) K/uL Lymph # (Auto) 0.79 L (1.20-3.40) K/uL Sevier # (Auto) 1.05 H (0.11-0.59) K/uL Eos # (Auto) 0.00 (0.00-0.50) K/uL Baso # (Auto) 0.01 (0.00-0.20) K/uL Comprehensive Metabolic Panel 01/24/23 Range/Units 06:12 Sodium 141 (136-145) mmol/L Potassium 4.6 (3.5-5.1) mmol/L Chloride 107 (98-107) mmol/L Carbon Dioxide 29 (21-32) mmol/L BUN 26 H (6-23) mg/dl Creatinine 1.04 (0.6-1.2) mg/dl Glucose 125 H (70-99(Fasting)) mg/dl Calcium 9.0 (8.6-10.3) mg/dl Intake and Output 01/23/23 01/24/23 01/24/23 22:59 06:59 14:59 Intake Total 550 / 1600 1050 / 1600 Output Total 850 / 1701 Balance -300 / -101 1050 / -101 Intake: IV 50 / 1100 1050 / 1100 Clindamycin/D5w 600 mg In 50 ml 50 / 100 50 / 100 @ 100 mls/hr IV Q8H YUKI Rx#: [id number] Sodium Chloride 0.9% 1,000 ml @ 1000 / 1000 100 mls/hr IV .Q10H YUKI Rx#: [id number] IV Perioperative 500 / 500 Output: Urine 500 / 1350 Estimated Blood Loss 350 / 350 Other: # Unmeasured Voids 1 Weight 81.4 kg Weight Measurement Method Built in [facility] (2) Hypertension Hypertension type: primary hypertension Qualified Code(s): I10 - Essential (primary) hypertension (3) Anemia Anemia type: unspecified type Qualified Code(s): D64.9 - Anemia, unspecified
--- NOTE | 2023-01-24 12:55 | XRay Report ---
SINGLE VIEW CHEST CLINICAL HISTORY: Congestive heart failure. Recent surgery. FINDINGS: An AP, portable, upright chest radiograph is compared to study dated 01/22/2023 correlation is made with chest CT dated 04/17/2021. The patient's head partially obscures the apices. The heart i s enlarged noting atherosclerotic calcification of the thoracic aorta. There is mild pulmonary vascul ar congestion. Emphysema and chronic interstitial thickening is similar to previous. There are left l arger than right pleural effusions with dependent atelectasis. No pneumothorax is seen. The skeletal structures are osteopenic. There is been partial plate fixation of a left humeral fracture with overl troy soft tissue edema and skin clips.. IMPRESSION: 1. Cardiomegaly and emphysema with mild pulmonary vascular congestion. 2. Left larger than right pleural effusions with dependent atelectasis. 3. Posttraumatic and postsurgical change is noted in the left proximal humerus. ACT 112: Negative or not required by law. Electronically signed by: Gentry Young M.D. 01/24/2023 12:54 PM
[2023-01-24] MEDS ORDERED: FUROSEMIDE INJ 20 MG/2 ML VIAL IV ONE (13:03)
--- NOTE | 2023-01-24 14:53 | Hospitalist Progress Note ---
Date of Service January 24, 2023 Assessment & Plan (1) Left humeral fracture: (2) Ambulatory dysfunction: (3) (HFpEF) heart failure with preserved ejection fraction: (4) Hypertension: (5) Hyperlipidemia: (6) COPD (chronic obstructive pulmonary disease): (7) CKD (chronic kidney disease) stage 3, GFR 30-59 ml/min: (8) Bipolar disorder: (9) Renal mass, left: (10) Depression: Plan 87yo F with a PMH of COPD, peripheral vascular disease, hypertension, HFpEF, esophageal dysmotility, CKD 3, Alzheimer's dementia, bipolar 2 disorder, depression, tobacco use and other medical problems listed below presents after mechanical fall at home and found to have an acute moderately displaced comminuted fracture of the neck and proximal shaft of the left humerus. 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 Head CT without acute intracranial findings, cervical spine CT without cervical fracture or subluxation Left shoulder XR with acute moderately displaced comminuted fracture of the neck and proximal shaft of the left humerus s/p left proximal Humerus Fracture ORIF by Dr Lu 01/23/23. Ortho on board, Pt/ot, NWB to LUE. Will need rehab. Monitor HnH. DVT Chemo Px - will start when bleeding risk deemed minimal per ortho sx. Acute on chronic anemia: Admitting Hb 9, which is about her baseline, dropped to 6.7 the following day likely 2/2 acute fracture and blood loss. s/p 2 unit PRBC w/ Hb reaching upto 9 on 01/23; s/p Sx on 01/23, now Hb 7.7 today, likely 2/2 operative blood loss. Monitor HnH. For now pt doesn't complain dizziness/weakness/tiredness/palpitations/chest pain. HFpEF CXR on admission and repeat CXR postoperatively - with cardiomegaly with pulmonary vascular congestion. Admitted a few weeks ago for resp failure in setting of CHF and possible PNA 2D echo from Jan 04, 2023 shows EF 60-65%, grade 1 diastolic dysfunction, mo derate mitral annular calcification, pulmonary HTN Repeat echo 01/22/23 reviewed. Was optimized by cardiology during previous admission and discharged on 12.5 mg spironolactone and 20mg Lasix States BLE edema is close to baseline, denies any CP, palpitations or SOB. Currently saturating well on 2L O2; is post op status. c/w home diuretics. additional dose of iv lasix today. Monitor volume status; consider iv lasix if needs further blood transfusion. Coronary Calcifications: noted on prior CT, statin therapy on DC. Consider aspirin as OP/after anemia stable. f/u cardio as OP History of COPD Ongoing tobacco abuse Continue home inhalers, Duonebs QID PRN SOB or wheezing cont. guaifenesin, incentive spirometry, flutter valve Smoking cessation CKD stage III Cr at baseline ~0.8. Continue monitoring with daily BMP History of left renal mass Mass 2.8 cm. Under observation by urology Bipolar disorder history of depression History of late onset Alzheimer's dementia with agitation Continue home meds of donepezil, Lamictal, risperidone and Zoloft Urinary incontinence Continue Myrbetriq DVT Ppx: SCDs for now Code status: no intubation but okay for CPR as per discussion with the family on admission - may be changed periop PCP: Dr. Luna Dispo: Admitting to [facility] tele Daughter Rody (she and brother Claude have POA). phone: [phone] Admission and Anticipated Discharge Date Admission Date: January 21, 2023 Subjective Patient was seen and examined at bedside. Patient was sitting up in chair, patient's at bedside. Patient reports feeling better and reports operative site pain under control. Denies any lightheadedness or dizziness or chest pain or palpitation. On 2 L nasal cannula oxygen, denies shortness of breath. Reports eating okay and moving bowels okay, denies other ROS. Physical Exam Physical Exam: GENERAL: Alert and oriented x3. NAD, on RA. HEENT: No pallor, no icterus. Pupils equal, round and reactive to light. Oral mucosa moist. NECK: No JVD, no neck masses. HEART: S1 and S2 heard. Regular rate and rhythm. No murmur, no gallop. RESPIRATORY SYSTEM: Normal AP diameter. No accessory muscle use. No wheezing, no crackles. ABDOMEN: Soft, bowel sounds present, nontender, no distention. CENTRAL NERVOUS SYSTEM: No facial droop. Speech is clear. Obeys simple commands. Moves extremities. EXTREMITIES: No edema, no erythema seen. LUE with clean dressing with minimal soakage. LUE in sling. Distal neurovascular status normal. Results & Data Results & Data Vital Signs (Past 12 Hours) Vital Signs Temp Pulse Pulse Resp BP Pulse Ox O2 Del Method 01/24/23 12:03 36.5 C 85 18 114/71 99 Nasal Cannula 01/24/23 12:02 Nasal Cannula 01/24/23 07:44 36.4 C L 84 18 103/60 97 Nasal Cannula 01/24/23 04:08 95 Nasal Cannula 01/24/23 04:02 36.6 C 95 H 16 104/66 90 Room Air O2 Flow Rate 01/24/23 12:03 2 01/24/23 12:02 2 01/24/23 07:44 2 01/24/23 04:08 2 01/24/23 04:02 (3) (HFpEF) heart failure with preserved ejection fraction Heart failure chronicity: acute Qualified Code(s): I50.31 - Acute diastolic (congestive) heart failure (4) Hypertension Hypertension type: primary hypertension Qualified Code(s): I10 - Essential (primary) hypertension
[2023-01-24] MEDS: LACTATED RINGER'S 1,000 ML IV SCH (15:36)
[2023-01-24] MEDS: SENNA 8.6 MG TAB PO SCH (21:32)
[2023-01-25] MEDS: guaiFENesin 600 MG TABCR PO SCH ×2 (05:23→17:15)
[2023-01-25] MEDS: ACETAMINOPHEN 500 MG TAB PO SCH ×3 (05:24→21:57)
[2023-01-25 07:31] LABS: Hematocrit (blood only) 22.3 % (37.0-47.0); Hemoglobin 6.8 g/dl (12.0-16.0); Mean Corpuscular Hemoglobin 29.2 pg (25.0-34.0); Mean Corpuscular Hgb Conc 30.5 g/dL (32.0-36.0); Mean Corpuscular Volume 95.7 fL (80.0-100.0); Mean Platelet Volume 10.5 fL (9.4-12.4); Platelet Count 224 K/uL (130-400); RDW Coefficient of Variation 19.1 % (11.5-14.5); RDW Standard Deviation 66.6 fL (36.4-46.3); Red Blood Count 2.33 M/uL (4.20-5.40); White Blood Count 8.16 K/ul (4.8-10.8)
[2023-01-25 08:08] LABS: Calcium 9.1 mg/dl (8.6-10.3)
[2023-01-25] MEDS ORDERED: ACETAMINOPHEN 325 MG TAB PO ONE (08:18)
[2023-01-25] MEDS ORDERED: SODIUM CHLORIDE 0.9% 250 ML IV PRN (08:18)
[2023-01-25 08:26] LABS: BUN Creatinine Ratio 29.4 (10-20); Est GFR (African American) 71.9 ml/min; Phosphorus 2.6 mg/dl (2.5-4.9)
--- NOTE | 2023-01-25 08:27 | Orthopedic Progress Note ---
Date of Service January 25, 2023 Assessment & Plan (1) Left humeral fracture: Overall she is doing about as well as expected. She is having some soreness in the left shoulder but not too much pain. She will be in a sling for total 6 weeks. She is anemic this morning and the hospitalist is aware. She is ort hopedically stable for discharge when medically ready. Full orthopedic discharge instructions were placed in the discharge summary. She can follow-up with orthopedics in 2 weeks. Brittaney Richardson was seen and examined at bedside this morning. Overall she is doing okay. Her left shoulder still little bit sore. She is a little bit anemic this mo rning. She is wearing her sling as instructed. She has no complaints.. Review of Systems All systems reviewed & are unremarkable except as noted in HPI & below. Physical Exam On physical examination left shoulder, there is some ecchymosis and swelling down her arm. I do not see any fracture blisters. The dressing is clean and dry without drainage. She does have motion of her hand, but it is difficult to get a full neurologic examination. She is wearing her sling as instructed.. Results & Data Results & Data Laboratory Results . Diagnostic Findings . PG Care Time/CCT Total # of Minutes Spent Total Time Spent with Patient: Total time spent is greater than 50% in coordination of care (as documented) at patient's floor/unit and/or counseling patient: Coding Level of Care Code 92535 Post Operative Follow-Up Diagnoses Left humeral fracture S42.302A
[2023-01-25] MEDS: FOLIC ACID 1 MG TAB PO SCH (09:00)
[2023-01-25] MEDS: FAMOTIDINE 20 MG TAB PO SCH (09:00)
[2023-01-25] MEDS: DOCUSATE SODIUM 100 MG CAP PO SCH ×2 (09:00→20:00)
[2023-01-25] MEDS: DONEPEZIL HCL 5 MG TAB PO SCH (09:00)
[2023-01-25] MEDS: FUROSEMIDE 20 MG TAB PO SCH (09:01)
[2023-01-25] MEDS: lamoTRIgine 25 MG TAB PO SCH (09:01)
[2023-01-25] MEDS: MULTIVITAMIN TAB PO SCH (09:01)
[2023-01-25] MEDS: risperiDONE 0.5 MG TABLET PO SCH ×2 (09:01→20:01)
[2023-01-25] MEDS: SPIRONOLACTONE 12.5 MG TAB PO SCH (09:02)
[2023-01-25] MEDS: VIBEGRON 75 MG TAB PO SCH (09:02)
[2023-01-25] MEDS: NYSTATIN/TRIAMCIN CR 15 GM TUBE EXT SCH ×3 (09:10→20:03)
[2023-01-25] MEDS: SERTRALINE HCL 50 MG TABLET PO SCH (11:03)
[2023-01-25] MEDS ORDERED: FUROSEMIDE INJ 20 MG/2 ML VIAL IV ONE (15:47)
--- NOTE | 2023-01-25 15:48 | Hospitalist Progress Note ---
Date of Service January 25, 2023 Assessment & Plan (1) Left humeral fracture: (2) Ambulatory dysfunction: (3) (HFpEF) heart failure with preserved ejection fraction: (4) Hypertension: (5) Hyperlipidemia: (6) COPD (chronic obstructive pulmonary disease): (7) CKD (chronic kidney disease) stage 3, GFR 30-59 ml/min: (8) Bipolar disorder: (9) Renal mass, left: (10) Depression: Plan 87yo F with a PMH of COPD, peripheral vascular disease, hypertension, HFpEF, esophageal dysmotility, CKD 3, Alzheimer's dementia, bipolar 2 disorder, depression, tobacco use and other medical problems listed below presents after mechanical fall at home and found to have an acute moderately displaced comminuted fracture of the neck and proximal shaft of the left humerus. She is being managed for the following: Mechanical fall Acute displaced L humerus fracture Missed a step while ambulating with walker and fell onto left side at home [employer]. Head CT without acute intracranial findings, cervical spine CT without cervical fracture or subluxation Left shoulder XR with acute moderately displaced comminuted fracture of the neck and proximal shaft of the left humerus s/p left proximal Humerus Fracture ORIF by Dr Lu 01/23/23. Ortho on board, Pt/ot, NWB to LUE. Will need rehab. Monitor HnH. DVT Chemo Px - will start when bleeding risk deemed minimal per ortho sx. Acute on chronic anemia: Admitting Hb 9, which is about her baseline, dropped to 6.7 the following day likely 2/2 acute fracture and blood loss. s/p 2 unit PRBC w/ Hb reaching upto 9 on 01/23; s/p Sx on 01/23, now Hb 6.8 today, likely 2/2 operative blood loss. Monitor HnH. For now pt doesn't complain dizziness/weakness/tiredness/palpitations/chest pain. will transfuse 1 unit prbc, iv lasix 20 mg x 1, HnH in AM. HFpEF CXR on admission and repeat CXR postoperatively - with cardiomegaly with pulmonary vascular congestion. Admitted a few weeks ago for resp failure in setting of CHF and possible PNA 2D echo from Jan 04, 2023 shows EF 60-65%, grade 1 diastolic dysfunction, moderate mitral annular calcification, pulmonary HTN Repeat echo 01/22/23 reviewed. Was optimized by cardiology during previous admission and discharged on 12.5 mg spironolactone and 20mg Lasix States BLE edema is close to baseline, denies any CP, palpitations or SOB. Currently saturating well on 2L O2; is post op status. c/w home diuretics. additional dose of iv lasix today. Monitor volume status; consider iv lasix w/ blood transfusion. Coronary Calcifications: noted on prior CT, statin therapy on DC. Consider aspirin as OP/after anemia stable. f/u cardio as OP History of COPD Ongoing tobacco abuse Continue home inhalers, Duonebs QID PRN SOB or wheezing cont. guaifenesin, incentive spirometry, flutter valve Smoking cessation CKD stage III Cr at baseline ~0.8. Continue monitoring with daily BMP History of left renal mass Mass 2.8 cm. Under observation by urology Bipolar disorder history of depression History of late onset Alzheimer's dementia with agitation Continue home meds of donepezil, Lamictal, risperidone and Zoloft Urinary incontinence Continue Myrbetriq DVT Ppx: SCDs for now Code status: no intubation but okay for CPR as per discussion with the family on admission - may be changed periop PCP: Dr. Luna Dispo: Admitting to [facility] tele Daughter Rody (she and brother Claude have POA). phone: [phone] Admission and Anticipated Discharge Date Admission Date: January 21, 2023 Subjective Patient was seen and examined at bedside. Patient was sitting up in chair. Hb dropped below 7 today, 1 unit prbc ordered. Patient reports feeling better and reports operative site pain under control. Denies any lightheadedness or dizziness or chest pain or palpitation. On 2 L nasal cannula oxygen, denies shortness of breath. Reports eating okay and moving bowels okay, denies other ROS. Physical Exam Physical Exam: GENERAL: Alert and oriented x3. NAD, on RA. HEENT: No pallor, no icterus. Pupils equal, round and reactive to light. Oral mucosa moist. NECK: No JVD, no neck masses. HEART: S1 and S2 heard. Regular rate and rhythm. No murmur, no gallop. RESPIRATORY SYSTEM: Normal AP diameter. No accessory muscle use. No wheezing, no crackles. ABDOMEN: Soft, bowel sounds present, nontender, no distention. CENTRAL NERVOUS SYSTEM: No facial droop. Speech is clear. Obeys simple commands. Moves extremities. EXTREMITIES: No edema, no erythema seen. LUE with clean dressing with minimal soakage. LUE in sling. Distal neurovascular status normal. Results & Data Results & Data Vital Signs (Past 12 Hours) Vital Signs Temp Pulse Pulse Resp BP BP Pulse Ox 01/25/23 15:36 37.2 C 80 16 100/64 94 01/25/23 14:53 84 01/25/23 13:51 37.2 C 80 16 99/60 L 95 01/25/23 12:45 36.6 C 77 16 99/58 L 98 01/25/23 12:43 37 C 78 16 121/68 99 01/25/23 12:14 37.1 C 71 18 112/69 99 01/25/23 11:42 36.4 C L 82 18 104/64 99 01/25/23 11:12 36.6 C 79 16 103/61 91 01/25/23 11:08 92 01/25/23 10:57 36.7 C 78 15 106/68 98 01/25/23 10:39 36.5 C 79 16 107/65 95 01/25/23 08:00 86 01/25/23 07:36 36.6 C 82 17 113/72 97 O2 Del Method O2 Flow Rate 01/25/23 15:36 Nasal Cannula 2 01/25/23 14:53 01/25/23 13:51 1 01/25/23 12:45 1 01/25/23 12:43 0 01/25/23 12:14 01/25/23 11:42 1 01/25/23 11:12 0 01/25/23 11:08 Nasal Cannula 2 01/25/23 10:57 2.5 01/25/23 10:39 01/25/23 08:00 01/25/23 07:36 Nasal Cannula 2 (3) (HFpEF) heart failure with preserved ejection fraction Heart failure chronicity: acute Qualified Code(s): I50.31 - Acute diastolic (congestive) heart failure (4) Hypertension Hypertension type: primary hypertension Qualified Code(s): I10 - Essential (primary) hypertension
[2023-01-25] MEDS: SENNA 8.6 MG TAB PO SCH (20:02)
[2023-01-26] MEDS: ACETAMINOPHEN 500 MG TAB PO SCH ×3 (05:28→20:30)
[2023-01-26] MEDS: guaiFENesin 600 MG TABCR PO SCH ×2 (05:29→17:32)
[2023-01-26 06:30] LABS: Hematocrit (blood only) 26.7 % (37.0-47.0); Hemoglobin 8.1 g/dl (12.0-16.0); Mean Corpuscular Hemoglobin 28.9 pg (25.0-34.0); Mean Corpuscular Hgb Conc 30.3 g/dL (32.0-36.0); Mean Corpuscular Volume 95.4 fL (80.0-100.0); Mean Platelet Volume 10.1 fL (9.4-12.4); Platelet Count 224 K/uL (130-400); RDW Coefficient of Variation 20.1 % (11.5-14.5); RDW Standard Deviation 69.7 fL (36.4-46.3); White Blood Count 9.98 K/ul (4.8-10.8)
[2023-01-26 06:52] LABS: BUN Creatinine Ratio 28.8 (10-20); Creatinine Clr Calc Pharmacy 54.5 ml/min; Est GFR (African American) 86.4 ml/min; Est GFR (Non-African American) 74.6 ml/min; Potassium 3.9 mmol/L (3.5-5.1)
[2023-01-26] MEDS: DONEPEZIL HCL 5 MG TAB PO SCH (09:39)
[2023-01-26] MEDS: DOCUSATE SODIUM 100 MG CAP PO SCH ×2 (09:39→20:26)
[2023-01-26] MEDS: FOLIC ACID 1 MG TAB PO SCH (09:40)
[2023-01-26] MEDS: FUROSEMIDE 20 MG TAB PO SCH (09:40)
[2023-01-26] MEDS: FAMOTIDINE 20 MG TAB PO SCH (09:40)
[2023-01-26] MEDS: lamoTRIgine 25 MG TAB PO SCH (09:40)
[2023-01-26] MEDS: MULTIVITAMIN TAB PO SCH (09:40)
[2023-01-26] MEDS: SERTRALINE HCL 50 MG TABLET PO SCH (09:41)
[2023-01-26] MEDS: VIBEGRON 75 MG TAB PO SCH (09:41)
[2023-01-26] MEDS: SPIRONOLACTONE 12.5 MG TAB PO SCH (09:41)
[2023-01-26] MEDS: NYSTATIN/TRIAMCIN CR 15 GM TUBE EXT SCH ×3 (09:41→20:28)
[2023-01-26] MEDS: risperiDONE 0.5 MG TABLET PO SCH ×2 (09:41→20:27)
[2023-01-26 15:25] LABS: Hemoglobin 8.5 g/dl (12.0-16.0)
--- NOTE | 2023-01-26 15:59 | Hospitalist Progress Note ---
Date of Service January 26, 2023 Assessment & Plan (1) Left humeral fracture: (2) Ambulatory dysfunction: (3) (HFpEF) heart failure with preserved ejection fraction: (4) Hypertension: (5) Hyperlipidemia: (6) COPD (chronic obstructive pulmonary disease): (7) CKD (chronic kidney disease) stage 3, GFR 30-59 ml/min: (8) Bipolar disorder: (9) Renal mass, left: (10) Depression: Plan 87yo F with a PMH of COPD, peripheral vascular disease, hypertension, HFpEF, esophageal dysmotility, CKD 3, Alzheimer's dementia, bipolar 2 disorder, depression, tobacco use and other medical problems listed below presents after mechanical fall at home and found to have an acute moderately displaced comminuted fracture of the neck and proximal shaft of the left humerus. She is being managed for the following: Mechanical fall Acute displaced L humerus fracture Missed a step while ambulating with walker and fell onto left side at home [employer]. Head CT without acute intracranial findings, cervical spine CT without cervical fracture or subluxation Left shoulder XR with acute moderately displaced comminuted fracture of the neck and proximal shaft of the left humerus s/p left proximal Humerus Fracture ORIF by Dr Lu 01/23/23. Ortho on board, Pt/ot, NWB to LUE. Will need rehab. Monitor HnH. DVT Chemo Px - will start when bleeding risk deemed minimal per ortho sx. Acute on chronic anemia: Admitting Hb 9, which is about her baseline, dropped to 6.7 the following day likely 2/2 acute fracture and blood loss. s/p 2 unit PRBC w/ Hb reaching upto 9 on 01/23; s/p Sx on 01/23, now Hb 6.8 on 01/25, likely 2/2 operative blood loss. Monitoring HnH. For now pt doesn't complain dizziness/weakness/tiredness/palpitations/chest pain. s/p total of 3 unit prbc so far, HnH stable today. HnH in AM. HFpEF CXR on admission and repeat CXR postoperatively - with cardiomegaly with pulmonary vascular congestion. Admitted a few weeks ago for resp failure in setting of CHF and possible PNA 2D echo from Jan 04, 2023 shows EF 60-65%, grade 1 diastolic dysfunction, moderate mitral annular calcification, pulmonary HTN Repeat echo 11/29/23 reviewed. Was optimized by cardiology during previous admission and discharged on 12.5 mg spironolactone and 20mg Lasix States BLE edema is close to baseline, denies any CP, palpitations or SOB. Currently saturating well on 2L O2; is post op status. c/w home diuretics. Monitor volume status; consider iv lasix w/ blood transfusion. Coronary Calcifications: noted on prior CT, statin therapy on DC. Consider aspirin as OP/after anemia stable. f/u cardio as OP History of COPD Ongoing tobacco abuse Continue home inhalers, Duonebs QID PRN SOB or wheezing cont. guaifenesin, incentive spirometry, flutter valve Smoking cessation CKD stage III Cr at baseline ~0.8. Continue monitoring with daily BMP History of left renal mass Mass 2.8 cm. Under observation by urology Bipolar disorder history of depression History of late onset Alzheimer's dementia with agitation Continue home meds of donepezil, Lamictal, risperidone and Zoloft Urinary incontinence Continue Myrbetriq DVT Ppx: SCDs for now Code status: no intubation but okay for CPR as per discussion with the family on admission - may be changed periop PCP: Dr. Luna Dispo: can dc adrian if HnH stable in AM; to rehab on DC. Daughter Rody (she and brother Claude have POA). phone: [phone] Admission and Anticipated Discharge Date Admission Date: January 21, 2023 Subjective Patient was seen and examined at bedside. Patient was lying in bed. Hb stable today, s/p 1 unit prbc. Patient reports feeling better and reports operative site pain under control. Denies any lightheadedness or dizziness or chest pain or palpitation. On 2 L nasal cannula oxygen, denies shortness of breath. Reports eating okay, denies other ROS. Physical Exam Physical Exam: GENERAL: Alert and oriented x3. NAD, on RA. HEENT: No pallor, no icterus. Pupils equal, round and reactive to light. Oral mucosa moist. NECK: No JVD, no neck masses. HEART: S1 and S2 heard. Regular rate and rhythm. No murmur, no gallop. RESPIRATORY SYSTEM: Normal AP diameter. No accessory muscle use. No wheezing, no crackles. ABDOMEN: Soft, bowel sounds present, nontender, no distention. CENTRAL NERVOUS SYSTEM: No facial droop. Speech is clear. Obeys simple commands. Moves extremities. EXTREMITIES: No edema, no erythema seen. LUE with clean dressing with minimal soakage. LUE in sling. Distal neurovascular status normal. Results & Data Results & Data Vital Signs (Past 12 Hours) Vital Signs Temp Pulse Pulse Resp BP BP Pulse Ox 01/26/23 15:28 37.2 C 90 16 113/68 90 01/26/23 11:30 37.0 C 82 14 124/74 96 01/26/23 08:00 01/26/23 07:54 36.9 C 87 16 112/69 95 01/26/23 07:20 91 H O2 Del Method O2 Flow Rate 01/26/23 15:28 Nasal Cannula 1 01/26/23 11:30 Nasal Cannula 2 01/26/23 08:00 Nasal Cannula 1 01/26/23 07:54 Nasal Cannula 2 01/26/23 07:20 (3) (HFpEF) heart failure with preserved ejection fraction Heart failure chronicity: acute Qualified Code(s): I50.31 - Acute diastolic (congestive) heart failure (4) Hypertension Hypertension type: primary hypertension Qualified Code(s): I10 - Essential (primary) hypertension
[2023-01-26] MEDS: SENNA 8.6 MG TAB PO SCH (20:27)
[2023-01-27] MEDS: ACETAMINOPHEN 500 MG TAB PO SCH ×3 (04:58→19:49)
[2023-01-27] MEDS: guaiFENesin 600 MG TABCR PO SCH ×2 (04:59→17:05)
[2023-01-27 06:58] LABS: Hematocrit (blood only) 25.9 % (37.0-47.0)
--- NOTE | 2023-01-27 07:41 | Orthopedic Progress Note ---
Date of Service January 27, 2023 Assessment & Plan (1) Left humeral fracture: Overall she is doing about as well as expected. She is having some soreness in the left shoulder but not too much pain. She will be in a sling for total 6 weeks. She is anemic this morning. Hospitalist is aware and watching. She is orthopedically stable for discharge when medically ready. Full orthopedic discharge instructions were placed in the discharge summary. She can follow-up with orthopedics in 2 weeks. Subjective . Debra was seen and examined at bedside this morning. Overall she is doing okay. Her left shoulder still little bit sore. She is a little bit anemic again this morning. She is wearing her sling as instructed. She has no complaints. Awaiting placement for rehab. Review of Systems All systems reviewed & are unremarkable except as noted in HPI & below. Physical Exam . On physical examination left shoulder, there is some ecchymosis and swelling down her arm. I do not see any fracture blisters. The dressing is clean and dry without drainage. She does have motion of her hand, but it is difficult to get a full neurologic examination. She is wearing her sling as instructed.. Results & Data Results & Data Laboratory Results . Diagnostic Findings . PG Care Time/CCT Total # of Minutes Spent Total Time Spent with Patient: Total time spent is greater than 50% in coordination of care (as documented) at patient's floor/unit and/or counseling patient: Coding Level of Care Code 66365 Post Operative Follow-Up Diagnoses Left humeral fracture S42.302A
[2023-01-27] MEDS: DOCUSATE SODIUM 100 MG CAP PO SCH ×2 (08:47→19:50)
[2023-01-27] MEDS: FOLIC ACID 1 MG TAB PO SCH (08:47)
[2023-01-27] MEDS: VIBEGRON 75 MG TAB PO SCH (08:47)
[2023-01-27] MEDS: risperiDONE 0.5 MG TABLET PO SCH ×2 (08:47→19:51)
[2023-01-27] MEDS: FUROSEMIDE 20 MG TAB PO SCH (08:47)
[2023-01-27] MEDS: FAMOTIDINE 20 MG TAB PO SCH (08:47)
[2023-01-27] MEDS: MULTIVITAMIN TAB PO SCH (08:47)
[2023-01-27] MEDS: SERTRALINE HCL 50 MG TABLET PO SCH (08:47)
[2023-01-27] MEDS: SPIRONOLACTONE 12.5 MG TAB PO SCH (08:47)
[2023-01-27] MEDS: DONEPEZIL HCL 5 MG TAB PO SCH (08:47)
[2023-01-27] MEDS: lamoTRIgine 25 MG TAB PO SCH (08:47)
[2023-01-27] MEDS: TRIAMTERENE/HCTZ 37.5/25MG TAB PO SCH (08:48)
[2023-01-27] MEDS: NYSTATIN/TRIAMCIN CR 15 GM TUBE EXT SCH ×3 (08:48→19:51)
[2023-01-27 13:29] LABS: Hematocrit (blood only) 30.1 % (37.0-47.0); Hemoglobin 9.1 g/dl (12.0-16.0)
--- NOTE | 2023-01-27 16:06 | Hospitalist Progress Note ---
Date of Service January 27, 2023 Assessment & Plan (1) Left humeral fracture: (2) Ambulatory dysfunction: (3) (HFpEF) heart failure with preserved ejection fraction: (4) Hypertension: (5) Hyperlipidemia: (6) COPD (chronic obstructive pulmonary disease): (7) CKD (chronic kidney disease) stage 3, GFR 30-59 ml/min: (8) Bipolar disorder: (9) Renal mass, left: (10) Depression: Plan 87yo F with a PMH of COPD, peripheral vascular disease, hypertension, HFpEF, esophageal dysmotility, CKD 3, Alzheimer's dementia, bipolar 2 disorder, depression, tobacco use and other medical problems listed below presents after mechanical fall at home and found to have an acute moderately displaced comminuted fracture of the neck and proximal shaft of the left humerus. She is being managed for the following: Mechanical fall Acute displaced L humerus fracture Missed a step while ambulating with walker and fell onto left side at home [employer]. Head CT without acute intracranial findings, cervical spine CT without cervical fracture or subluxation Left shoulder XR with acute moderately displaced comminuted fracture of the neck and proximal shaft of the left humerus s/p left proximal Humerus Fracture ORIF by Dr Lu 01/23/23. Ortho on board, Pt/ot, NWB to LUE. Will need rehab. Monitor HnH. DVT Chemo Px - will start when bleeding risk deemed minimal per ortho sx. Acute on chronic anemia: Admitting Hb 9, which is about her baseline, dropped to 6.7 the following day likely 2/2 acute fracture and blood loss. s/p 2 unit PRBC w/ Hb reaching upto 9 on 01/23; s/p Sx on 01/23, now Hb 6.8 on 01/25, likely 2/2 operative blood loss. Monitoring HnH. For now pt doesn't complain dizziness/weakness/tiredness/palpitations/chest pain. s/p total of 3 unit prbc so far, HnH stable today. HnH in AM. HFpEF CXR on admission and repeat CXR postoperatively - with cardiomegaly with pulmonary vascular congestion. Admitted a few weeks ago for resp failure in setting of CHF and possible PNA 2D echo from Jan 04, 2023 shows EF 60-65%, grade 1 diastolic dysfunction, moderate mitral annular calcification, pulmonary HTN Repeat echo 11/29/23 reviewed. Was optimized by cardiology during previous admission and discharged on 12.5 mg spironolactone and 20mg Lasix States BLE edema is close to baseline, denies any CP, palpitations or SOB. Currently saturating well on 2L O2; is post op status. c/w home diuretics. Monitor volume status; consider iv lasix w/ blood transfusion. Coronary Calcifications: noted on prior CT, statin therapy on DC. Consider aspirin as OP/after anemia stable. f/u cardio as OP History of COPD Ongoing tobacco abuse Continue home inhalers, Duonebs QID PRN SOB or wheezing cont. guaifenesin, incentive spirometry, flutter valve Smoking cessation CKD stage III Cr at baseline ~0.8. Continue monitoring with daily BMP History of left renal mass Mass 2.8 cm. Under observation by urology Bipolar disorder history of depression History of late onset Alzheimer's dementia with agitation Continue home meds of donepezil, Lamictal, risperidone and Zoloft Urinary incontinence Continue Myrbetriq DVT Ppx: SCDs for now Code status: no intubation but okay for CPR as per discussion with the family on admission - may be changed periop PCP: Dr. Luna Dispo: can dc to rehab, CM assisting. Daughter Rody (she and brother Claude have POA). phone: [phone] Admission and Anticipated Discharge Date Admission Date: January 21, 2023 Subjective Patient was seen and examined at bedside. Patient was lying in bed. Hb stable today. Patient reports feeling better and reports operative site pain under control. Denies any lightheadedness or dizziness or chest pain or palpitation. On RA, denies shortness of breath. Reports eating okay, denies other ROS. Physical Exam Physical Exam: GENERAL: Alert and oriented x3. NAD, on RA. HEENT: No pallor, no icterus. Pupils equal, round and reactive to light. Oral mucosa moist. NECK: No JVD, no neck masses. HEART: S1 and S2 heard. Regular rate and rhythm. No murmur, no gallop. RESPIRATORY SYSTEM: Normal AP diameter. No accessory muscle use. No wheezing, no crackles. ABDOMEN: Soft, bowel sounds present, nontender, no distention. CENTRAL NERVOUS SYSTEM: No facial droop. Speech is clear. Obeys simple commands. Moves extremities. EXTREMITIES: No edema, no erythema seen. LUE with clean dressing with minimal soakage. LUE in sling. Distal neurovascular status normal. Results & Data Results & Data Vital Signs (Past 12 Hours) Vital Signs Temp Pulse Pulse Resp BP BP Pulse Ox 01/27/23 12:52 37.2 C 90 17 105/70 94 01/27/23 09:01 36.6 C 84 18 122/67 92 01/27/23 08:00 92 H 01/27/23 08:00 01/27/23 04:17 36.1 C L 95 H 18 108/64 96 O2 Del Method O2 Flow Rate 01/27/23 12:52 Room Air 01/27/23 09:01 Room Air 01/27/23 08:00 01/27/23 08:00 Room Air 01/27/23 04:17 Nasal Cannula 2 (3) (HFpEF) heart failure with preserved ejection fraction Heart failure chronicity: acute Qualified Code(s): I50.31 - Acute diastolic (congestive) heart failure (4) Hypertension Hypertension type: primary hypertension Qualified Code(s): I10 - Essential (primary) hypertension
[2023-01-27] MEDS: SENNA 8.6 MG TAB PO SCH (19:52)
[2023-01-28] MEDS: ACETAMINOPHEN 500 MG TAB PO SCH ×3 (04:55→20:05)
[2023-01-28] MEDS: guaiFENesin 600 MG TABCR PO SCH ×2 (05:23→17:58)
[2023-01-28] MEDS: SPIRONOLACTONE 12.5 MG TAB PO SCH (09:13)
[2023-01-28] MEDS: lamoTRIgine 25 MG TAB PO SCH (09:13)
[2023-01-28] MEDS: FUROSEMIDE 20 MG TAB PO SCH (09:13)
[2023-01-28] MEDS: TRIAMTERENE/HCTZ 37.5/25MG TAB PO SCH (09:13)
[2023-01-28] MEDS: VIBEGRON 75 MG TAB PO SCH (09:14)
[2023-01-28] MEDS: MULTIVITAMIN TAB PO SCH (09:14)
[2023-01-28] MEDS: FOLIC ACID 1 MG TAB PO SCH (09:14)
[2023-01-28] MEDS: FAMOTIDINE 20 MG TAB PO SCH (09:14)
[2023-01-28] MEDS: SERTRALINE HCL 50 MG TABLET PO SCH (09:14)
[2023-01-28] MEDS: DONEPEZIL HCL 5 MG TAB PO SCH (09:14)
[2023-01-28] MEDS: DOCUSATE SODIUM 100 MG CAP PO SCH ×2 (09:14→20:04)
[2023-01-28] MEDS: risperiDONE 0.5 MG TABLET PO SCH ×2 (09:14→20:06)
[2023-01-28] MEDS: NYSTATIN/TRIAMCIN CR 15 GM TUBE EXT SCH ×3 (09:15→20:06)
--- NOTE | 2023-01-28 11:45 | Orthopedic Progress Note ---
Date of Service January 28, 2023 Assessment & Plan (1) Left humeral fracture: Overall she is doing about as well as expected. She is having some soreness in the left shoulder but not too much pain. She will be in a sling for total 6 weeks. Hospitalist is tending H&H. She is orthopedically stable for discharge when medically ready. Full orthopedic discharge instructions were placed in the discharge summary. She can follow-up with orthopedics in 2 weeks. D/C planning pending family meeting with CM this afternoon. Subjective . Debra was seen and examined at bedside this morning. Overall she is doing okay. She is sitting bedside in no apparent distress. Her left shoulder still little bit sore. Hgb is stable today. She is wearing her sling as instructed. She has no complaints. She is having a family meeting today to discuss post discharge planning. When CM discussed rehab yesterday, she refused. CM will be in meeting with family today. Review of Systems All systems reviewed & are unremarkable except as noted in HPI & below. Physical Exam .On physical examination left shoulder, there is some ecchymosis and swelling down her arm. I do not see any fracture blisters. The dressing is clean and dry without drainage. She does have motion of her hand, but it is difficult to get a full neurologic examination. She is wearing her sling as instructed. Results & Data Results & Data Laboratory Results . Diagnostic Findings . PG Care Time/CCT Total # of Minutes Spent Total Time Spent with Patient: Total time spent is greater than 50% in coordination of care (as documented) at patient's floor/unit and/or counseling patient: Coding Level of Care Code 09504 Post Operative Follow-Up Diagnoses Left humeral fracture S42.302A
[2023-01-28 13:21] LABS: Hematocrit (blood only) 30.8 % (37.0-47.0); Hemoglobin 9.3 g/dl (12.0-16.0)
--- NOTE | 2023-01-28 15:28 | Hospitalist Progress Note ---
Date of Service January 28, 2023 Assessment & Plan (1) Left humeral fracture: (2) Ambulatory dysfunction: (3) (HFpEF) heart failure with preserved ejection fraction: (4) Hypertension: (5) Hyperlipidemia: (6) COPD (chronic obstructive pulmonary disease): (7) CKD (chronic kidney disease) stage 3, GFR 30-59 ml/min: (8) Bipolar disorder: (9) Renal mass, left: (10) Depression: Plan 87yo F with a PMH of COPD, peripheral vascular disease, hypertension, HFpEF, esophageal dysmotility, CKD 3, Alzheimer's dementia, bipolar 2 disorder, depression, tobacco use and other medical problems listed below presents after mechanical fall at home and found to have an acute moderately displaced comminuted fracture of the neck and proximal shaft of the left humerus. 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 Head CT without acute intracranial findings, cervical spine CT without cervical fracture or subluxation Left shoulder XR with acute moderately displaced comminuted fracture of the neck and proximal shaft of the left humerus s/p left proximal Humerus Fracture ORIF by Dr Lu 01/23/23. Ortho on board, Pt/ot, NWB to [facility]. Will need rehab. Monitor HnH. HnH has been stable, will use hep sc for dvt px as pt is not much moving around Acute on chronic anemia: Admitting Hb 9, which is about her baseline, dropped to 6.7 the following day likely 2/2 acute fracture and blood loss. s/p 2 unit PRBC w/ Hb reaching upto 9 on 01/23; s/p Sx on 01/23, now Hb 6.8 on 01/25, likely 2/2 operative blood loss. Monitoring HnH. For now pt doesn't complain dizziness/weakness/tiredness/palpitations/chest pain. s/p total of 3 unit prbc so far, HnH stable today. HnH in AM. HFpEF CXR on admission and repeat CXR postoperatively - with cardiomegaly with pulmonary vascular congestion. Admitted a few weeks ago for resp failure in setting of CHF and possible PNA 2D echo from Jan 04, 2023 shows EF 60-65%, grade 1 diastolic dysfunction, moderate mitral annular calcification, pulmonary HTN Repeat echo 01/22/23 reviewed. Was optimized by cardiology during previous admission and discharged on 12.5 mg spironolactone and 20mg Lasix States BLE edema is close to baseline, denies any CP, palpitations or SOB. Currently saturating well on 2L O2; is post op status. c/w home diuretics. Monitor volume status; consider iv lasix w/ blood transfusion. Coronary Calcifications: noted on prior CT, Per cards - statin therapy on DC. Consider aspirin as OP/after anemia stable. f/u cardio as OP History of COPD Ongoing tobacco abuse Continue home inhalers, Duonebs QID PRN SOB or wheezing cont. guaifenesin, incentive spirometry, flutter valve Smoking cessation CKD stage III Cr at baseline ~0.8. Continue monitoring with daily BMP History of left renal mass Mass 2.8 cm. Under observation by urology Bipolar disorder history of depression History of late onset Alzheimer's dementia with agitation Continue home meds of donepezil, Lamictal, risperidone and Zoloft Urinary incontinence Continue Myrbetriq DVT Ppx: SCDs for now Code status: no intubation but okay for CPR as per discussion with the family on admission - may be changed periop PCP: Dr. Luna Dispo: can dc to rehab, CM assisting. Daughter Rody (she and brother Claude have POA). phone: [phone] Admission and Anticipated Discharge Date Admission Date: January 21, 2023 Subjective Patient was seen and examined at bedside. Patient was sitting up in chair. Hb stable today. Patient reports feeling delonte r and reports operative site pain under control. Denies any lightheadedness or dizziness or chest pain or palpitation. On RA, denies shortness of breath. Reports eating okay, denies other ROS. Per RN, pt is two person assist, pt wants to go home. Had family meeting later in the day, explained her current medical condition and need for rehab, they are talking of sending her to rehab for sometime. CM is assisting. Physical Exam Physical Exam: GENERAL: Alert and oriented x3. NAD, on RA. HEENT: No pallor, no icterus. Pupils equal, round and reactive to light. Oral mucosa moist. NECK: No JVD, no neck masses. HEART: S1 and S2 heard. Regular rate and rhythm. No murmur, no gallop. RESPIRATORY SYSTEM: Normal AP diameter. No accessory muscle use. No wheezing, no crackles. ABDOMEN: Soft, bowel sounds present, nontender, no distention. CENTRAL NERVOUS SYSTEM: No facial droop. Speech is clear. Obeys simple commands. Moves extremities. EXTREMITIES: No edema, no erythema seen. LUE with clean dressing with minimal soakage. LUE in sling. Distal neurovascular status normal. Results & Data Results & Data Vital Signs (Past 12 Hours) Vital Signs Temp Pulse Pulse Resp BP Pulse Ox O2 Del Method 01/28/23 15:06 36.8 C 98 H 20 135/83 96 Room Air 01/28/23 11:18 37.3 C 85 20 113/75 95 Room Air 01/28/23 08:01 36.9 C 87 20 122/76 93 Room Air 01/28/23 07:51 Room Air 01/28/23 07:00 84 (3) (HFpEF) heart failure with preserved ejection fraction Heart failure chronicity: acute Qualified Code(s): I50.31 - Acute diastolic (congestive) heart failure (4) Hypertension Hypertension type: primary hypertension Qualified Code(s): I10 - Essential (primary) hypertension
[2023-01-28] MEDS: SENNA 8.6 MG TAB PO SCH (20:04)
[2023-01-28] MEDS: HEPARIN SOD 5,000 UNIT/0.5 ML VIAL SQ SCH (20:06)
[2023-01-29] MEDS: ACETAMINOPHEN 500 MG TAB PO SCH ×3 (05:44→21:59)
[2023-01-29] MEDS: guaiFENesin 600 MG TABCR PO SCH ×2 (05:44→18:56)
[2023-01-29] MEDS: DONEPEZIL HCL 5 MG TAB PO SCH (08:58)
[2023-01-29] MEDS: FOLIC ACID 1 MG TAB PO SCH (08:58)
[2023-01-29] MEDS: SPIRONOLACTONE 12.5 MG TAB PO SCH (08:58)
[2023-01-29] MEDS: lamoTRIgine 25 MG TAB PO SCH (08:58)
[2023-01-29] MEDS: MULTIVITAMIN TAB PO SCH (08:58)
[2023-01-29] MEDS: VIBEGRON 75 MG TAB PO SCH (08:58)
[2023-01-29] MEDS: DOCUSATE SODIUM 100 MG CAP PO SCH ×2 (08:58→22:01)
[2023-01-29] MEDS: TRIAMTERENE/HCTZ 37.5/25MG TAB PO SCH (08:58)
[2023-01-29] MEDS: SERTRALINE HCL 50 MG TABLET PO SCH (08:59)
[2023-01-29] MEDS: risperiDONE 0.5 MG TABLET PO SCH ×2 (08:59→21:59)
[2023-01-29] MEDS: FUROSEMIDE 20 MG TAB PO SCH (08:59)
[2023-01-29] MEDS: HEPARIN SOD 5,000 UNIT/0.5 ML VIAL SQ SCH ×2 (08:59→22:00)
[2023-01-29] MEDS: FAMOTIDINE 20 MG TAB PO SCH (08:59)
[2023-01-29] MEDS: NYSTATIN/TRIAMCIN CR 15 GM TUBE EXT SCH ×3 (09:00→21:59)
--- NOTE | 2023-01-29 09:03 | Orthopedic Progress Note ---
Date of Service January 29, 2023 Assessment & Plan (1) Left humeral fracture: Overall she is doing about as well as expected. She is having some soreness in the left shoulder but not too much pain. She will be in a sling for total 6 weeks. Hospitalist is tending H&H. If patient is here tomorrow (01/30/2023), dressing may be removed and if dry, open to air. May cover the surgical site if here clothes are rubbing over the surgical site. She is orthopedically stable for discharge when medically ready. Full orthopedic discharge instructions were placed in the discharge summary. She can follow-up with orthopedics in 10-14 days. D/C to rehab was CM gets approval for desired units. Subjective .Debra was seen and examined at bedside this morning. Overall she is doing okay. She is sitting bedside in no apparent distress. Her left shoulder still little bit sore. Hgb is stable today. She is wearing her sling as instructed. She has no complaints. Meeting with family went well yesterday and it was agreed to go to rehab. CM put in referrals yesterday. No update as of this morning. Review of Systems All systems reviewed & are unremarkable except as noted in HPI & below. Physical Exam .On physical examination left shoulder, there is some ecchymosis and swelling down her arm. I do not see any fracture blisters. The dressing is clean and dry without drainage. She does have motion of her hand, but it is difficult to get a full neurologic examination. She is wearing her sling as instructed. Results & Data Results & Data Laboratory Results . Diagnostic Findings . PG Care Time/CCT Total # of Minutes Spent Total Time Spent with Patient: Total time spent is greater than 50% in coordination of care (as documented) at patient's floor/unit and/or counseling patient: Coding Level of Care Code 97134 Post Operative Follow-Up Diagnoses Left humeral fracture S42.302A
[2023-01-29 13:23] LABS: Hematocrit (blood only) 30.6 % (37.0-47.0); Hemoglobin 9.4 g/dl (12.0-16.0)
--- NOTE | 2023-01-29 13:26 | Hospitalist Progress Note ---
Date of Service January 29, 2023 Assessment & Plan (1) Left humeral fracture: (2) Ambulatory dysfunction: (3) (HFpEF) heart failure with preserved ejection fraction: (4) Hypertension: (5) Hyperlipidemia: (6) COPD (chronic obstructive pulmonary disease): (7) CKD (chronic kidney disease) stage 3, GFR 30-59 ml/min: (8) Bipolar disorder: (9) Renal mass, left: (10) Depression: Plan Ms. Rose is a 87yo F with a PMH of COPD, peripheral vascular disease, hypertension, HFpEF, esophageal dysmotility, CKD 3, Alzheimer's dementia, bipolar 2 disorder, depression, tobacco use and other medical problems listed below presents after mechanical fall at home and found to have an acute moderately displaced comminuted fracture of the neck and proximal shaft of the left humerus. She is being managed for the following: #Bipolar disorder #history of depression #History of late onset Alzheimer's dementia with agitation Continue home meds of donepezil, Lamictal, risperidone and Zoloft Delirium precautions It is in my professional opinion the patient will require a short term rehabilitation/alf stay for less than 30days. Her medical history of bipolar disorder is well controlled with current medications and treatement. This short term rehabilitation/nursing home stay will have the goal of obtaining full independence and the patient will return to home. 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 Head CT without acute intracranial findings, cervical spine CT without cervical fracture or subluxation Left shoulder XR with acute moderately displaced comminuted fracture of the neck and proximal shaft of the left humerus Ortho following, procedure performed by Dr. Lu Dressing may be removed and if dry, open to air 01/30 Follow up as directed by Ortho PT/OT: discharge to SNF #Acute on chronic anemia, in the setting of trauma/post-operative losses: Admitting Hb 9, which is about her baseline, dropped to 6.7 the following day likely 2/2 acute fracture and blood loss. s/p 2 unit PRBC w/ Hb reaching upto 9 on 01/23; s/p Sx on 01/23, now Hb 6.8 on 01/25, likely 2/2 operative blood loss. s/p 3 PRBC Hgb stable Trend H&H #HFpEF CXR on admission and repeat CXR postoperatively - with cardiomegaly with pulmonary vascular congestion. Admitted a few weeks ago for resp failure in setting of CHF and possible PNA 2D echo from Jan 04, 2023 shows EF 60-65%, grade 1 diastolic dysfunction, moderate mitral annular calcification, pulmonary HTN Repeat echo 01/22/23 reviewed. Was optimized by cardiology during previous admission and discharged on 12.5 mg spironolactone and 20mg Lasix States BLE edema is close to baseline, denies any CP, palpitations or SOB. Currently saturating well on 2L O2; is post op status. c/w home diuretics. Monitor volume status; consider iv lasix w/ blood transfusion. #Coronary Artery Disease by CT: Per cards - statin therapy on DC. Consider aspirin as OP/after anemia stable. f/u cardio as OP #COPD #Ongoing tobacco abuse Continue home inhalers, Duonebs QID PRN SOB or wheezing cont. guaifenesin, incentive spirometry, flutter valve Smoking cessation #CKD stage III Cr at baseline ~0.8. Continue monitoring with daily BMP #History of left renal mass Mass 2.8 cm. Under observation by urology #Urinary incontinence Continue Myrbetriq DVT Ppx: SCDs for now Code status: no intubation but okay for CPR as per discussion with the family on admission - may be changed periop PCP: Dr. Luna Dispo: can dc to rehab, CM assisting. Daughter Rody (she and brother Claude have POA). phone: [phone] Admission and Anticipated Discharge Date Admission Date: January 21, 2023 Subjective Denies any acute concerns this morning. Enjoying breakfast. Nods head to hearing that authorization is pending for placement. Physical Exam Respiratory: normal respiratory effort, lungs clear to auscultation Cardiovascular: RRR, no murmur, no edema Musculoskeletal: right arm in sling Results & Data Results & Data Vital Signs (Past 12 Hours) Vital Signs Temp Pulse Pulse Resp BP BP Pulse Ox 01/29/23 12:48 37.2 C 90 20 120/74 94 01/29/23 09:57 36.8 C 80 20 130/78 94 01/29/23 07:16 36.5 C 89 16 111/67 94 01/29/23 03:29 36.5 C 91 H 18 117/70 94 O2 Del Method 01/29/23 12:48 Room Air 01/29/23 09:57 Room Air 01/29/23 07:16 Room Air 01/29/23 03:29 Room Air Laboratory Results Short CBC 01/28/23 Range/Units 12:57 Hgb 9.3 L (12.0-16.0) g/dl Hct 30.8 L (37.0-47.0) % Medications Administered Home Medications Medication Instructions Recorded Confirmed Last Taken donepezil 5 mg tablet 5 mg PO QAM 01/04/23 01/21/23 Unknown folic acid 1 mg tablet 1 mg PO QAM 01/04/23 01/21/23 Unknown lamotrigine 25 mg tablet 25 mg PO QAM 01/04/23 01/21/23 Unknown mirabegron 50 mg tablet,extended 50 mg PO QAM 01/04/23 01/21/23 Unknown release 24 hr (Myrbetriq) risperidone 0.5 mg tablet 0.5 mg PO BID 01/04/23 01/21/23 Unknown sertraline 50 mg tablet 50 mg PO DAILY 01/04/23 01/21/23 Unknown tramadol 50 mg tablet 50 mg PO TID PRN Pain 01/04/23 01/21/23 Unknown furosemide 20 mg tablet 20 mg PO QAM #30 tabs 01/13/23 01/21/23 Unknown spironolactone 25 mg tablet 12.5 mg (1/2 x 25 mg) PO DAILY #30 01/13/23 01/21/23 Unknown tabs famotidine 20 mg tablet 20 mg PO DAILY 01/21/23 01/21/23 Unknown nystatin-triamcinolone 100,000 1 applic topical TID 01/21/23 01/21/23 Unknown unit/g-0.1 % topical cream triamterene 37.5 1 tab PO QAM 01/21/23 01/21/23 Unknown mg-hydrochlorothiazide 25 mg tablet Active Medications Generic Name Dose Route Start Last Admin Trade Name Freq PRN Reason Stop Dose Admin Acetaminophen 1,000 mg 01/21/23 21:00 01/29/23 05:44 Acetaminophen 500 Mg Tab PO 02/20/23 20:59 1,000 mg Q8H YUKI Administration Docusate Sodium 100 mg 01/23/23 21:00 01/29/23 08:58 Docusate Sodium 100 Mg Cap PO 02/22/23 20:59 100 mg BID YUKI Administration Donepezil HCl 5 mg 01/22/23 09:00 01/29/23 08:58 Donepezil Hcl 5 Mg Tab PO 02/21/23 08:59 5 mg QAM YUKI Administration Famotidine 20 mg 01/22/23 09:00 01/29/23 08:59 Famotidine 20 Mg Tab PO 02/21/23 08:59 20 mg DAILY YUKI Administration Folic Acid 1 mg 01/22/23 09:00 01/29/23 08:58 Folic Acid 1 Mg Tab PO 02/21/23 08:59 1 mg QAM YUKI Administration Furosemide 20 mg 01/22/23 09:00 01/29/23 08:59 Furosemide 20 Mg Tab PO 02/21/23 08:59 20 mg QAM YUKI Administration Guaifenesin 600 mg 01/21/23 18:00 01/29/23 05:44 Guaifenesin 600 Mg Tabcr PO 02/20/23 17:59 600 mg Q12H YUKI Administration Heparin Sodium (Porcine) 5,000 units 01/28/23 21:00 01/29/23 08:59 Heparin Sod 5,000 Unit/0.5 Ml Vial SQ 02/27/23 20:59 5,000 units Q12 YUKI Administration Lamotrigine 25 mg 01/22/23 09:00 01/29/23 08:58 Lamotrigine 25 Mg Tab PO 02/21/23 08:59 25 mg QAM YUKI Administration Magnesium Hydroxide 30 ml 01/23/23 16:49 01/28/23 13:23 Magnesium Hydroxide Susp 30 Ml Udc PO 02/22/23 16:48 30 ml Q6H PRN Administration Constipation Multivitamins 1 tab 01/24/23 09:00 01/29/23 08:58 Multivitamin Tab PO 02/23/23 08:59 1 tab QAM YUKI Administration Nystatin/Triamcinolone Acetonide 1 appln 01/21/23 21:00 01/29/23 09:00 Nystatin/Triamcin Cr 15 Gm Tube EXT 02/20/23 20:59 1 appln TID YUKI Administration Polyethylene Glycol 17 gm 01/21/23 20:29 01/26/23 09:50 Polyethylene (Miralax) 17 Gm Pack PO 02/20/23 20:28 17 gm DAILY PRN Administration Constipation Risperidone 0.5 mg 01/21/23 21:00 01/29/23 08:59 Risperidone 0.5 Mg Tablet PO 02/20/23 20:59 0.5 mg BID YUKI Administration Sennosides 17.2 mg 01/23/23 21:00 01/28/23 20:04 Senna 8.6 Mg Tab PO 02/22/23 20:59 Not Given HS YUKI Sertraline HCl 50 mg 01/22/23 09:00 01/29/23 08:59 Sertraline Hcl 50 Mg Tablet PO 02/21/23 08:59 50 mg DAILY YUKI Administration Spironolactone 12.5 mg 01/22/23 09:00 01/29/23 08:58 Spironolactone 12.5 Mg Tab PO 02/21/23 08:59 12.5 mg DAILY YUKI Administration Tramadol HCl 50 mg 01/21/23 20:29 01/23/23 11:40 Tramadol Hcl 50 Mg Tablet PO 02/20/23 20:28 50 mg TID PRN Administration Pain Triamterene/Hydrochlorothiazide 1 tab 01/27/23 09:00 01/29/23 08:58 Triamterene/Hctz 37.5/25mg Tab PO 02/26/23 08:59 1 tab QAM YUKI Administration Vibegron 75 mg 01/22/23 09:00 01/29/23 08:58 Vibegron 75 Mg Tab PO 02/21/23 08:59 75 mg DAILY YUKI Administration (3) (HFpEF) heart failure with preserved ejection fraction Heart failure chronicity: acute Qualified Code(s): I50.31 - Acute diastolic (congestive) heart failure (4) Hypertension Hypertension type: primary hypertension Qualified Code(s): I10 - Essential (primary) hypertension
[2023-01-29] MEDS: SENNA 8.6 MG TAB PO SCH (22:00)
[2023-01-30] MEDS: ACETAMINOPHEN 500 MG TAB PO SCH (05:48)
[2023-01-30] MEDS: guaiFENesin 600 MG TABCR PO SCH (05:48)
[2023-01-30] MEDS: DOCUSATE SODIUM 100 MG CAP PO SCH (08:01)
[2023-01-30] MEDS: SPIRONOLACTONE 12.5 MG TAB PO SCH (08:01)
[2023-01-30] MEDS: MULTIVITAMIN TAB PO SCH (08:01)
[2023-01-30] MEDS: FUROSEMIDE 20 MG TAB PO SCH (08:01)
[2023-01-30] MEDS: SERTRALINE HCL 50 MG TABLET PO SCH (08:01)
[2023-01-30] MEDS: FAMOTIDINE 20 MG TAB PO SCH (08:01)
[2023-01-30] MEDS: FOLIC ACID 1 MG TAB PO SCH (08:01)
[2023-01-30] MEDS: DONEPEZIL HCL 5 MG TAB PO SCH (08:01)
[2023-01-30] MEDS: risperiDONE 0.5 MG TABLET PO SCH (08:01)
[2023-01-30] MEDS: TRIAMTERENE/HCTZ 37.5/25MG TAB PO SCH (08:01)
[2023-01-30] MEDS: lamoTRIgine 25 MG TAB PO SCH (08:01)
[2023-01-30] MEDS: VIBEGRON 75 MG TAB PO SCH (08:01)
[2023-01-30] MEDS: HEPARIN SOD 5,000 UNIT/0.5 ML VIAL SQ SCH (08:02)
[2023-01-30] MEDS: NYSTATIN/TRIAMCIN CR 15 GM TUBE EXT SCH (08:02)
--- NOTE | 2023-01-30 10:01 | Discharge Summary ---
Discharge Summary Date of Service January 30, 2023 Notes For Next Care Provider Medication Changes From Visit -Start Daily ASA 81mg -Start Atorvastatin 40mg daily Admission HPI Per Admitting Provider This is an 87yo F with a PMH of COPD, peripheral vascular disease, hypertension, HFpEF, esophageal dysmotility, CKD 3, Alzheimer's dementia, bipolar 2 disorder, depression, tobacco use and other medical problems listed below presents after mechanical fall at home today. Patient was recently admitted to our service from 01/04- hypoxic respiratory failure initially requiring bipap 2/2 decompensated CHF and possible PNA and was subsequently discharged to [facility]. Was returning home with today when she missed a step walking into her home with her walker and fell backwards onto left side. Denies head trauma or LOC. Presented to ED with left shoulder pain for further evaluation. Not on any anticoagulation. No other acute issues, per patient. No F/C, lightheade dness, CP, SOB, N/V, abdominal pain, dysuria, diarrhea or constipation. Chronic lower extremity swelling, unchanged from previous. During previous admission, patient completed empiric IV Invanz and Doxy course for possible PNA. Was also managed by cardiology with IV lasix and transitioned to 20mg Lasix and 12.5mg spironolactone at time of discharge. Admission Exam Per Admitting Provider Currently laying in bed in NAD. She is awake,alert, oriented, answers appropriately. Reports left arm pain but no chest pain or palpitations. Left arm is in a sling. Heart sounds regular, no murmur. + mild rhonchi on auscultation, no wheezing. Abdomen is soft, nontender, nondistended. 1+ LE edema b/l Moves extremities, except for left arm d/t pain. Skin is warm and dry. Principal Dx & Hospital Course #1 = Principal Diagnosis (1) Left humeral fracture: (2) Ambulatory dysfunction: (3) (HFpEF) heart failure with preserved ejection fraction: (4) Hypertension: (5) Hyperlipidemia: (6) COPD (chronic obstructive pulmonary disease): (7) CKD (chronic kidney disease) stage 3, GFR 30-59 ml/min: (8) Bipolar disorder: (9) Renal mass, left: (10) Depression: Plan Ms. Rose is a 87yo F with a PMH of COPD, peripheral vascular disease, hypertension, HFpEF, esophageal dysmotility, CKD 3, Alzheimer's dementia, bipolar 2 disorder, depression, tobacco use and other medical problems listed below presents after mechanical fall at home and found to have an acute moderately displaced comminuted fracture of the neck and proximal shaft of the left humerus. She is being managed for the following: #Bipolar disorder #history of depression #History of late onset Alzheimer's dementia with agitation Continue home meds of donepezil, Lamictal, risperidone and Zoloft Delirium precautions It is in my professional opinion the patient will require a short term rehabilitation/shelter stay for less than 30days. Her medical history of bipolar disorder is well controlled with current medicat ions and treatment. This short term rehabilitation/custodial stay will have the goal of obtaining full independence and the patient will return to home. 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 Head CT without acute intracranial findings, cervical spine CT without cervical fracture or subluxation Left shoulder XR with acute moderately displaced comminuted fracture of the neck and proximal shaft of the left humerus Ortho following, procedure performed by Dr. Lu Follow up as directed by Ortho PT/OT: discharge to SNF #Acute on chronic anemia, in the setting of trauma/post-operative losses: Admitting Hb 9, which is about her baseline, dropped to 6.7 the following day likely 2/2 acute fracture and blood loss. s/p 2 unit PRBC w/ Hb reaching upto 9 on 01/23; s/p Sx on 01/23, now Hb 6.8 on 01/25, likely 2/2 operative blood loss. s/p 3 PRBC Hgb stable Trend H&H #Coronary Artery Disease by CT #HFpEF CXR on admission and repeat CXR postoperatively - with cardiomegaly with pulmonary vascular congestion. Admitted a few weeks ago for resp failure in setting of CHF and possible PNA 2D echo from Jan 04, 2023 shows EF 60-65%, grade 1 diastolic dysfunction, moderate mitral annular calcification, pulmonary HTN Repeat echo 01/22/23 reviewed. Was optimized by cardiology during previous admission and discharged on 12.5 mg spironolactone and 20mg Lasix States BLE edema is close to baseline, denies any CP, palpitations or SOB. Currently saturating well on 2L O2; is post op status. c/w home diuretics. Monitor volume status; consider iv lasix w/ blood transfusion. -Start ASA and Atorvastatin 40mg daily #COPD #Ongoing tobacco abuse Continue home inhalers, Duonebs QID PRN SOB or wheezing cont. guaifenesin, incentive spirometry, flutter valve Smoking cessation #CKD stage III Cr at baseline ~0.8. stable #History of left renal mass Mass 2.8 cm. Under observation by urology #Urinary incontinence Continue Myrbetriq On day of discharge, patient was eating well and denied any acute concerns. Discharge Exam Constitutional WD/WN, vitals as above Respiratory normal respiratory effort, lungs clear to auscultation Cardiovascular RRR, no murmur, no edema Musculoskeletal left arm in sling, dressing removed, clean well approximated surgical incision no signs of infection Updated Medication List Medication Instructions Recorded Confirmed Type donepezil 5 mg tablet 5 mg PO QAM 01/04/23 01/21/23 History folic acid 1 mg tablet 1 mg PO QAM 01/04/23 01/21/23 History lamotrigine 25 mg tablet 25 mg PO QAM 01/04/23 01/21/23 History mirabegron 50 mg tablet,extended 50 mg PO QAM 01/04/23 01/21/23 History release 24 hr (Myrbetriq) risperidone 0.5 mg tablet 0.5 mg PO BID 01/04/23 01/21/23 History sertraline 50 mg tablet 50 mg PO DAILY 01/04/23 01/21/23 History tramadol 50 mg tablet 50 mg PO TID PRN Pain 01/04/23 01/21/23 History furosemide 20 mg tablet 20 mg PO QAM #30 tabs 01/13/23 01/21/23 Rx spironolactone 25 mg tablet 12.5 mg (1/2 x 25 mg) PO DAILY #30 01/13/23 01/21/23 Rx tabs famotidine 20 mg tablet 20 mg PO DAILY 01/21/23 01/21/23 History nystatin-triamcinolone 100,000 1 applic topical TID 01/21/23 01/21/23 History unit/g-0.1 % topical cream triamterene 37.5 1 tab PO QAM 01/21/23 01/21/23 History mg-hydrochlorothiazide 25 mg tablet aspirin 81 mg capsule 81 mg PO DAILY #30 caps 01/30/23 Rx atorvastatin 40 mg tablet 40 mg PO DAILY #30 tabs 01/30/23 Rx Hospital Stay Data Consultations 01/21/23 16:57 ED Decision to Admit Stat 01/21/23 18:03 Consult Orthopedic Surgery Routine 01/21/23 19:49 Consult Cardiology Routine Procedures Performed Operation Date: 01/23/23 07:00 Actual Procedures p Left Proximal Humerus Fracture Open Reduction Internal Fixation(Left) - Miah Lu, Diagnostic Imagining Performed 01/21/23 15:15 CT cervical spine wo con Stat CT head/brain wo con Stat 01/23/23 FL humerus LT 2V Routine 01/23/23 13:09 US - OR guided needle placemen Stat Pending Results Patient Have Any Pending Studies at Discharge: No Discharge Instructions Given to Patient (Per Discharging Provider) Please resume all home medications as previously prescribed Total Time Total Time Spent Total Time Spent (In Minutes): 45
== END 2023-01-30 12:43 | DRG 493 ==
LOC: ED 15:02 → SUATTDRO 18:42 → EDINP 18:42 → 2N 01-22 20:29